=== PATIENT | female | born 1940 | race Caucasian/White ===

== ENCOUNTER → 2017-06-27 16:28 | Outpatient (CLI) | payer MEDICARE, OTHER, SELFPAY ==
[2017-06-27 17:38] LABS: Absolute Lymphocyte Count 2.49 X10^3/ul (0.83-4.51); Absolute Neutrophil Count 3.8 X10^3/uL (2.0-7.7); Basophil# 0.02 X10^3/uL; Basophil% 0.3 % (0-1); Eosinophil# 0.06 X10^3/uL; Eosinophils% 0.8 % (0-5); Hematocrit 40.1 % (37-47); Hemoglobin 12.8 g/dl (12.0-15.0); Lymphocyte # 2.49 X10^3/ul (4.0); Lymphocyte % 34.2 % (19-41); Mean Corp Hgb Conc 31.9 g/gl (32-36); Mean Corpuscular Hgb 27.7 pg (27.0-32.0); Mean Corpuscular Volume 86.8 fL (81-99); Monocyte# 0.87 X10^3/uL; Neutrophil # 3.83 X10^3/uL (2.7-7.7); Neutrophil % 52.6 % (47-70); Platelet Count 270 K/mm3 (150-450); RBC Distribution Width CV 14.6 % (11.6-14.6); RBC Distribution Width SD 46.1 fl (35.1-43.9); Red Blood Count 4.62 M/mm3 (4.2-5.4); White Blood Count 7.3 K/mm3 (4.4-11.0)
[2017-06-27 17:39] LABS: POSITIVE COUNT NO; POSITIVE DIFFERENTIAL NO; POSITIVE MORPHOLOGY NO
[2017-06-27 18:24] LABS: Anion Gap 9 (5-15); BUN 15 mg/dL (7-18); Calcium,Total 9.2 mg/dL (8.5-10.1); Chloride 100 mmol/L (98-107); Creatinine, Serum 0.68 mg/dL (0.55-1.02); EST Glomerular Filtration Rate 89 mL/min (>60); Est Glom Filt Rate - Afr Amer 108 mL/min (>60); Glucose 101 mg/dL (74-106); Sodium Level 136 mmol/L (136-145)
== END ==
PROVIDERS: Family Provider Family Medicine; PCP Family Medicine; Visit Provider Family Medicine
DX: R19.7 Diarrhea, unspecified (principal)
CPT/HCPCS: 36415; 80048; 85025

== ENCOUNTER → 2017-07-28 08:30 | Outpatient (CLI) | payer MEDICARE, OTHER, SELFPAY ==
[2017-07-28 09:08] LABS: Erythrocyte Sedimentation Rate 21 mm/hr (0-30)
[2017-07-28 09:11] LABS: Absolute Lymphocyte Count 1.94 X10^3/ul (0.83-4.51); Absolute Neutrophil Count 4.7 X10^3/uL (2.0-7.7); Basophil# 0.03 X10^3/uL; Basophil% 0.4 % (0-1); Eosinophil# 0.12 X10^3/uL; Eosinophils% 1.6 % (0-5); Hemoglobin 12.7 g/dl (12.0-15.0); Lymphocyte # 1.94 X10^3/ul (4.0); Lymphocyte % 25.8 % (19-41); Mean Corp Hgb Conc 32.6 g/gl (32-36); Mean Corpuscular Hgb 28.1 pg (27.0-32.0); Mean Corpuscular Volume 86.3 fL (81-99); Mean Platelet Vol. 8.7 fl (6.2-12.0); Monocyte# 0.74 X10^3/uL; Monocyte% 9.9 % (0-10); Neutrophil # 4.66 X10^3/uL (2.7-7.7); Platelet Count 275 K/mm3 (150-450); RBC Distribution Width CV 14.3 % (11.6-14.6); RBC Distribution Width SD 44.6 fl (35.1-43.9); Red Blood Count 4.52 M/mm3 (4.2-5.4); White Blood Count 7.5 K/mm3 (4.4-11.0)
[2017-07-28 09:13] LABS: POSITIVE COUNT NO; POSITIVE DIFFERENTIAL NO; POSITIVE MORPHOLOGY NO
[2017-07-28 09:22] LABS: Hemoglobin A1c 7.2 % (4.2-6.3)
[2017-07-28 09:31] LABS: ALB/GLOB Ratio 0.8 RATIO (0.9-2.4); AST(SGOT) 16 U/L (15-37); Alanine Aminotransfer ALT/SGPT 20 U/L (13-56); Albumin, Serum 3.2 g/dL (3.2-5.0); Alkaline Phosphatase 58 U/L (45-117); Anion Gap 8 (5-15); BUN 14 mg/dL (7-18); BUN/Creat Ratio 18.3 RATIO (10-20); CRP 9.15 mg/L (0.0-3.0); Calcium,Total 8.6 mg/dL (8.5-10.1); Chloride 103 mmol/L (98-107); Cholesterol 128 mg/dL (200); Creatinine, Serum 0.77 mg/dL (0.55-1.02); EST Glomerular Filtration Rate 78 mL/min (>60); Est Glom Filt Rate - Afr Amer 94 mL/min (>60); Globulin 4.1 g/dL (2.2-4.2); Glucose 164 mg/dL (74-106); High Density Lipoprotein 39 mg/dL; Potassium 4.2 mmol/L (3.5-5.1); Protein, Total 7.3 g/dL (6.4-8.2); Sodium Level 140 mmol/L (136-145); Triglycerides 91 mg/dL; Very Low Density Lipoprotein 18 mg/dL (5-40)
== END ==
PROVIDERS: Family Provider Family Medicine; PCP Family Medicine; Visit Provider Family Medicine
DX: E11.9 Type 2 diabetes mellitus without complications (principal); I10 Essential (primary) hypertension; E78.5 Hyperlipidemia, unspecified; M25.50 Pain in unspecified joint; R53.83 Other fatigue
CPT/HCPCS: 36415; 80053; 80061; 83036; 85025; 85652; 86140

== ENCOUNTER 2017-10-05 03:24 | Emergency (ER) | payer MEDICARE, OTHER, SELFPAY ==
[2017-10-05 03:25] VITALS: BP 182/147; PULSE 96; RESP 23; TEMP 37; O2SAT 85; BMI 22.4
--- NOTE | 2017-10-05 03:35 | ED.RN ---
patients wrong account entered and gave wrong information. please see other charting on this patient
== END 2017-10-05 04:00 | disposition home or self-care (01) ==
LOC: ED 07-31 11:21
PROVIDERS: Emergency Provider Emergency Medicine; Family Provider Family Medicine; PCP Family Medicine
DX: R06.9 Unspecified abnormalities of breathing (principal)

== ENCOUNTER → 2017-11-07 10:30 | Outpatient (CLI) | payer MEDICARE, OTHER, SELFPAY ==
--- NOTE | 2017-11-07 10:35 | RAD_ITS ---
STUDY: X-RAY - LUMBAR SPINE REASON FOR EXAM: Female, 77 years old. Low back pain. No known injury. TECHNIQUE: 5 view(s) of the lumbar spine were obtained. COMPARISON: 5 views of the lumbar spine July 31, 2016; CT abdomen pelvis August 21, 2016 FINDINGS: Normal lumbar lordosis. There is no substantial scoliosis. There is a normal alignment of the vertebrae. There is diffuse demineralization with multi-level endplate spondylosis. There is moderate degenerative narrowing of the L5-S1 intervertebral disc height. There is no demonstrated osseous destructive lesion or fracture. There is degenerative arthrosis of the right L3-4 and L4-5 facet articulations. As well as degenerative arthroses of the bilateral sacroiliac joint There is atherosclerotic calcification of the abdominal aorta as well as the tortuous splenic artery. RAD/L/S Spine Min 4 Views IMPRESSION: Stable degenerative changes of the spine, as detailed above. Electronically Signed: Bo Rawls MD at 19:58 EDT , Service support ,
[2017-11-07 12:45] LABS: Iron 46 ug/dL (50-170)
[2017-11-07 12:55] LABS: Vitamin B12 > 2000 pg/mL (211-911); Vitamin D,25 Hydroxy 30.2 ng/mL (29.95-100.01)
== END ==
PROVIDERS: Family Provider Family Medicine; PCP Family Medicine; Visit Provider Family Medicine
DX: M54.5 Low back pain (principal); E55.9 Vitamin D deficiency, unspecified; E61.1 Iron deficiency; E53.8 Deficiency of other specified B group vitamins
CPT/HCPCS: 36415; 72110; 82306; 82607; 83540

== ENCOUNTER 2017-11-08 17:53 | Inpatient (IN) | payer MEDICARE, OTHER, SELFPAY ==
[2017-11-08 17:55] VITALS: BP 129/59; PULSE 86; RESP 20; TEMP 37.8; O2SAT 90; BMI 42.6
--- NOTE | 2017-11-08 18:13 | EKG12_ITS ---
Test Reason : Blood Pressure : / mmHG Vent. Rate : 080 BPM Atrial Rate : 080 BPM P-R Int : 198 ms QRS Dur : 090 ms QT Int : 378 ms P-R-T Axes : 012 036 050 degrees QTc Int : 435 ms Sinus rhythm with marked sinus arrhythmia Otherwise normal ECG Confirmed by LIGIA SOSA, BON ([id number]), publication editor GRACIE BAILON ([id number]) on 11/09/2017 1:02:48 PM Referred By: DREW Confirmed By:BON STRONG MD
--- NOTE | 2017-11-08 18:20 | RAD_ITS ---
STUDY: X-RAY CHEST REASON FOR EXAM: Female, 77 years old. Weakness. Altered mental status beginning this morning. Recently treated for UTI nausea and vomiting. TECHNIQUE: Single AP portable view of the chest. COMPARISON: None. FINDINGS: Telemetry wires overlie the chest. The lungs are well expanded. There is no focal mass or infiltrate. Chronic interstitial coarsening is noted. There is no demonstrated pleural abnormality. Normal size heart. Normal mediastinum and lucio. Normal visualized pulmonary arteries. There is atherosclerotic calcification of the aortic arch with tortuosity. The thoracic spine is obscured by the mediastinum. There is degenerative osteoarthritis of the bilateral shoulders. There is no demonstrated abnormality of the visualized soft tissue structures of the upper abdomen. RAD/Chest 1 View (Portable) IMPRESSION: No acute cardiopulmonary disease. Electronically Signed: Joshua Roca DO at 18:54 EDT Tel [phone], Service support ,
[2017-11-08 18:31] LABS: Absolute Lymphocyte Count 0.84 X10^3/ul (0.83-4.51); Absolute Neutrophil Count 9.2 X10^3/uL (2.0-7.7); Basophil# 0.03 X10^3/uL; Basophil% 0.3 % (0-1); Eosinophil# 0.04 X10^3/uL; Eosinophils% 0.4 % (0-5); Hematocrit 38.1 % (37-47); Hemoglobin 12.4 g/dl (12.0-15.0); Lymphocyte # 0.84 X10^3/ul (4.0); Lymphocyte % 7.6 % (19-41); Mean Corp Hgb Conc 32.5 g/gl (32-36); Mean Corpuscular Hgb 28.1 pg (27.0-32.0); Mean Corpuscular Volume 86.2 fL (81-99); Mean Platelet Vol. 8.7 fl (6.2-12.0); Monocyte# 0.99 X10^3/uL; Monocyte% 8.9 % (0-10); Neutrophil # 9.19 X10^3/uL (2.7-7.7); Neutrophil % 82.5 % (47-70); POSITIVE COUNT NO; POSITIVE DIFFERENTIAL NO; POSITIVE MORPHOLOGY NO; Platelet Count 243 K/mm3 (150-450); RBC Distribution Width CV 14.3 % (11.6-14.6); RBC Distribution Width SD 44.9 fl (35.1-43.9); Red Blood Count 4.42 M/mm3 (4.2-5.4); White Blood Count 11.1 K/mm3 (4.4-11.0)
[2017-11-08 18:38] LABS: Lactic Acid 1.2 mmol/L (0.4-2.0)
[2017-11-08 18:39] LABS: Anion Gap 8 (5-15); BUN 16 mg/dL (7-18); BUN/Creat Ratio 21.5 RATIO (10-20); Calcium,Total 8.5 mg/dL (8.5-10.1); Chloride 101 mmol/L (98-107); Creatinine, Serum 0.74 mg/dL (0.55-1.02); EST Glomerular Filtration Rate 80 mL/min (>60); Est Glom Filt Rate - Afr Amer 97 mL/min (>60); Estimated Creatinine Clearance 37.85 ml/min; Glucose 150 mg/dL (74-106); Potassium 3.7 mmol/L (3.5-5.1); Sodium Level 134 mmol/L (136-145)
[2017-11-08] MEDS: Ondansetron 4 MG/2 ML Vial IV (18:41)
[2017-11-08] MEDS: 0.9% Normal Saline 1,000 ML 1000 ML IV (18:42)
[2017-11-08 19:15] LABS: Bacteria 0 SEEN /hpf (None Seen); Mucous, Urine 0 SEEN /hpf (<or=2+)
[2017-11-08 19:20] LABS: Color, Urine Yellow (Yellow); Glucose, Dipstick Normal (Normal); Ketone-Dipstick 15 mg/dl (Negative); Leukocyte Esterase-Dipstick 25 /ul (Negative); Nitrite-Dipstick Negative (Negative); Occult Blood-Urine 150 /ul (Negative); Protein-Dipstick 30 mg/dl (Negative); Specific Gravity, Urine 1.015 (1.002-1.030); Urine Bilirubin Dipstick Negative (Negative); Urine Urobilinogen Normal (Normal)
[2017-11-08 19:33] LABS: Red Blood Cells-Urine 5-10 SEEN /hpf (0-5); Squamous Epithelial Cells - UA 0-5 SEEN /hpf (5-10); White Blood Cells 0-5 SEEN /hpf (0-5)
[2017-11-08 19:34] LABS: Urine Clarity Sl Cldy (Clear)
[2017-11-08 20:05] VITALS: BP 107/46; PULSE 73; RESP 21; O2SAT 97
--- NOTE | 2017-11-08 21:28 | PCM.HP.STD ---
Problem List (1) Benign essential hypertension Status: Chronic (2) Type 2 diabetes mellitus Status: Chronic (3) Gastroesophageal reflux disease Status: Chronic (4) Obesity Status: Chronic (5) Osteoarthritis Status: Chronic (6) Obesity Status: Chronic (7) Benign essential hypertension Status: Chronic (8) Weakness Status: Acute History of Present Illness Date of Admission: 11/08/17 Chief Complaint: Weakness The patient is a 77 year old F with a significant history of GERD, diabetes mellitus, hypertension, appendectomy, cholecystectomy and hysterectomy who presents because of extreme weakness ?1 day. The patient reports that she has frequent UTIs; and last week she had symptoms of urinary problems of increased frequency of urination, burning and pain with urination; for which reason she went to see a urologist/network designer and was prescribed Macrobid. She began taking the Macrobid 3 days ago. Now, she has no burning or pain with urination but she continues to have increase in frequency of urination. Also 3 days ago she was she was prescribed a Medrol Dosepak for a lower back pain. She started taking the Medrol Dosepak. In regard to her lower back pain, she received a call that she have some some narrowing of her spine and she should consider physical therapy or pain management. At the same time that she was prescribed the Medrol Dosepak her insulin regimen was increased. She takes only long acting insulin and it was this regimen that was increased. Additionally she takes Amaryl and metformin. Associated with recurrent symptoms is a subjective fever, chills, nausea , vomiting ?4 times and confusion. She has a chronic diarrhea that have span years. At emergency department she was started on IV Rocephin and blood cultures ?2 was obtained. Past Medical History Past Medical History (Chronic Problems): Chronic Problems Benign essential hypertension (Chronic) Type 2 diabetes mellitus (Chronic) Gastroesophageal reflux disease (Chronic) Obesity (Chronic) Osteoarthritis (Chronic) Osteoarthritis (Chronic) Obesity (Chronic) Gastroesophageal reflux disease (Chronic) Type 2 diabetes mellitus (Chronic) Benign essential hypertension (Chronic) Allergies aspirin Allergy (Unverified 11/08/17 18:37) Rash codeine Allergy (Unverified 11/08/17 18:37) Rash NSAIDS (Non-Steroidal Anti-Inflamma Allergy (Unverified 11/08/17 18:37) Rash Penicillins Allergy (Unverified 07/19/18 18:37) Rash solifenacin [From Vesicare] Allergy (Unverified 11/08/17 18:37) Unknown Sulfa (Sulfonamide Antibiotics) Allergy (Unverified 11/08/17 18:37) Rash Home Medications: Ambulatory Orders Medication Instructions Recorded Ascorbic Acid [Vitamin C] 500 mg PO DAILY 11/08/17 Brimonidine 0.15% [Alphagan P 1 drop LEFT EYE BID 11/08/17 0.15%] Calcium Carbonate [Calcium] 600 mg PO QHS 11/08/17 Cholecalciferol (Vitamin D3) 5,000 unit PO DAILY 11/08/17 [Vitamin D3] Cyanocobalamin [Vitamin B12] 500 mcg PO DAILY@0800 11/08/17 Glimepiride [Amaryl] 4 mg PO BID 11/08/17 Insulin Glargine,Hum.rec.anlog 18 unit SC QHS 11/08/17 [Lantus] Losartan Potassium 75 mg PO DAILY 11/08/17 Magnesium Oxide [Magnesium] 400 mg PO QHS 11/08/17 Metformin HCl 500 mg PO TID 11/08/17 MethylPREDNISolone [Medrol] 4 mg PO 4X/DAY 11/08/17 Multivitamin [Daily Multiple 1 each PO DAILY 11/08/17 Vitamin] Nitrofurantoin Monohyd/M-Cryst 100 mg PO BID 11/08/17 [Macrobid 100 mg Capsule] [place]-3 Fatty Acids/Fish Oil [Fish 1 each PO DAILY 11/08/17 Oil 1,000 mg Capsule] Omeprazole 20 mg PO DAILY 11/08/17 Oxybutynin Chloride [Ditropan Xl] 5 mg PO DAILY 11/08/17 Pravastatin Sodium [Pravachol] 10 mg PO QHS 11/08/17 Trazodone HCl 150 mg PO QHS 11/08/17 Surgical History: appendectomy, cholecystectomy, hysterectomy Psychiatric History: No pertinent psych hx Smoking Status: Former smoker Tobacco Use: Non-smoker Alcohol: None Drugs: None - *Family History Maternal History Items: Heart Disease Paternal History Items: Diabetes, Heart Disease Review of Systems Constitutional: Reports: Chills, Fever - Subjective Eyes: Denies: Blurred vision, Pain HEENT: Reports: Difficulty Hearing Cardiovascular: Denies: Chest Pain, Palpitations Respiratory: Denies: Cough, Shortness of breath at rest, Sputum production Gastrointestinal: Denies: Abdominal Pain, Nausea, Vomiting Genitourinary: Reports: Dysuria, Frequency Musculoskeletal: Reports: Back Pain - Lower central back pain, - Skin: Denies: Rash, Wounds Neurological: Reports: Confusion. Denies: Focal weakness Psychiatric: Denies: Anxiety, Depression, Homicidal Ideations, Suicidal Ideations Hematologic/ Lymphatic: Denies: Easy Bruising, Easy Bleeding VTE Information - Inpt Only VTE Present on Admission: No VTE Mechan Device Prophylaxis: None VTE Pharm Prophylaxis ordered?: Yes Patient Problems: Active and Suspected Problems Weakness (Acute) - Physical Exam General: Alert, Oriented x3, Cooperative HEENT: Atraumatic, PERRLA, EOMI, Normocephalic Neck: Supple, No JVD, Negative Carotid Bruits Lungs: Clear to auscultation, Normal air movement Cardiovascular: Regular rate, No murmurs Abdomen: Tender - Left lower quadrants Old midline incision Extremities: - - Back nontender Skin: No rashes, No breakdown Musculoskeletal: No Tenderness to Palpation of Joints or Extremities Neurological: Cranial nerves II-XII grossly intact Psych/Mental Status: Normal Affect, Appropriate Vital Signs Temp Pulse Resp BP Pulse Ox 100.1 F H 73 21 H 107/46 L 97 11/08/17 17:55 11/08/17 20:05 11/08/17 20:05 11/08/17 20:05 11/08/17 20:05 Oxygen Delivery Method Room Air Weight: 105.7 kg Body Mass Index (BMI) 42.6 Laboratory Tests Past 24 Hrs 11/08/17 11/08/17 11/08/17 18:03 18:05 18:05 WBC 11.1 H RBC 4.42 Hgb 12.4 Hct 38.1 MCV 86.2 MCH 28.1 MCHC 32.5 RDW 14.3 RDW Differential 44.9 H Plt Count 243 MPV 8.7 Immature Gran % (Auto) 0.300 Neut % (Auto) 82.5 H Lymph % (Auto) 7.6 L [place] % (Auto) 8.9 Eos % (Auto) 0.4 Baso % (Auto) 0.3 Absolute Neuts (auto) 9.2 H Absolute Lymphs (auto) 0.84 Total Counted Not Reportable Sodium 134 L Potassium 3.7 Chloride 101 Carbon Dioxide 25.0 Anion Gap 8 BUN 16 Creatinine 0.74 Estim Creat Clear Calc 37.85 Est GFR (MDRD) Af Amer 97 Est GFR (MDRD) Non-Af 80 BUN/Creatinine Ratio 21.5 H Glucose 150 H Lactic Acid 1.2 Calcium 8.5 Troponin I < 0.015 Urine Color Urine Clarity Urine pH Ur Specific [place] Urine Protein Urine Glucose (UA) Urine Ketones Urine Occult Blood Urine Nitrite Urine Bilirubin Urine Urobilinogen Ur Leukocyte Esterase Urine RBC Urine WBC Ur Squamous Epith Cells Urine Bacteria Urine Mucus 11/08/17 19:01 WBC RBC Hgb Hct MCV MCH MCHC RDW RDW Differential Plt Count MPV Immature Gran % (Auto) Neut % (Auto) Lymph % (Auto) [place] % (Auto) Eos % (Auto) Baso % (Auto) Absolute Neuts (auto) Absolute Lymphs (auto) Total Counted Sodium Potassium Chloride Carbon Dioxide Anion Gap BUN Creatinine Estim Creat Clear Calc Est GFR (MDRD) Af Amer Est GFR (MDRD) Non-Af BUN/Creatinine Ratio Glucose Lactic Acid Calcium Troponin I Urine Color Yellow Urine Clarity Sl Cldy Urine pH 5.0 Ur Specific [place] 1.015 Urine Protein 30 H Urine Glucose (UA) Normal Urine Ketones 15 H Urine Occult Blood 150 H Urine Nitrite Negative Urine Bilirubin Negative Urine Urobilinogen Normal Ur Leukocyte Esterase 25 H Urine RBC 5-10 SEEN Urine WBC 0-5 SEEN Ur Squamous Epith Cells 0-5 SEEN Urine Bacteria 0 SEEN Urine Mucus 0 SEEN Assessment/Plan All Active Problems Weakness (Acute) The patient is a 77 year old F with a significant history of GERD, diabetes mellitus, hypertension, appendectomy, cholecystectomy and hysterectomy who presents because of extreme weakness ?1 day, subjective fever chills, nausea, vomiting and some reported confusion after recently being started on Macrobid and Medrol Dosepak.. At the time of my evaluation patient was not confused. At emergency department he had a temperature of 100.1. Weakness The etiology of a weakness is not known at this time. However, it could be due to her steroids. We will discontinue steroid at this time. Oxycodone and ibuprofen ordered. Patient states that she is allergic to aspirin but not to ibuprofen. PT and OT therapy. Acute cystitis cystitis His urinalysis here was not impressive. However he stated that he had a severely abnormal urinalysis outpatient for his region Macrobid was started and Received Rocephin IV at the ED Rocephin continued Urine culture ordered Blood culture pending. Zofran for nausea. Hypertension Continue losartan Diabetes mellitus Metformin and Amaryl on hold. Will adjust home last Lantus downwards to 10 units daily because of vomiting Correction scale insulin ordered. DVT prophylaxis with subcutaneous heparin. Code Visit OBSV E&M: 59588 Initial observation care L2
[2017-11-08] MEDS: Acetaminophen 500 MG Tablet 1000 MG PO (21:36)
[2017-11-08 21:37] VITALS: BP 103/49; PULSE 80; RESP 18; O2SAT 98
[2017-11-08 22:00] VITALS: O2SAT 98
--- NOTE | 2017-11-08 22:00 | ED.DCSUM_ITS ---
- ER Visit Summary Date of Service: 11/08/17 Chief Complaint: [Weakness] History of Present Illness: The patient is a 77 F [presents the emergency department complaint of generalized weakness for over a week. Patient states that she just feels miserable. Patient currently being treated for urinary tract infection that was diagnosed on the and patient was started on Macrobid. Patient describes fever. Patient describes intermittent nausea and vomiting. Patient's had intermittent diarrhea without any blood in the stool. Patient denies any abdominal pain. Patient has some mild back patient but she has a history of chronic back pain and recently was started on steroids. Today patient too weak to even get to the bathroom and required assistance from her daughter and the daughter called EMS to bring patient to the ER. Daughter states patient's been somewhat more confused than usual today.] Physical Examination: [HEENT-PERRLA, EOMI. Cranial nerves II through XII grossly intact. TMs clear. Mucous membranes moist. No adenopathy. Cardiovascular-regular rate and rhythm without murmur or ectopy Lungs-clear to auscultation, chest wall stable without crepitus or subcu emphysema Abdomen-normoactive bowel sounds, soft, nontender, no rebound or rigidity, no peritoneal signs. Extremities-intact ?4, normal range of motion, normal pulses, atraumatic] Test Results: [EKG obtained on arrival shows sinus rhythm with a ventricular rate of 80 bpm with no acute ST segment changes. CBC with differential showed an elevated white blood cell count of 11.1, [place] 12, hematocrit 38, platelets 243. Chemistries unremarkable. Urinalysis showed 25 leukocyte esterase, 5-10 WBCs, 0-5 RBCs. Troponin was less than 0.015. Lactate was normal at 1.2. Chest x-ray showed nothing acute. Blood cultures ordered and pending.] Emergency Department Course and Treatment: [Patient was started on Rocephin 1 g IV and she was given IV fluids.] Treatment Plan: [Admit] Disposition: [Admit] Impression: [Generalized weakness UTI] This note was generated with [employer] dictation software. It may contain incorrect words, spelling, and punctuation that were not noted in review of the chart prior to signing ED Disposition - Plan for ED Patient: Chief Complaint: Weakness Referrals: Marilee Jiang DO [Primary Care Provider] -
[2017-11-08] MEDS: Ceftriaxone 1 GM/50 ML BAG IV (22:15)
[2017-11-08 22:57] VITALS: BMI 38.5
[2017-11-09 00:10] VITALS: BP 104/50; PULSE 66; RESP 18; TEMP 37.1; O2SAT 94
[2017-11-09 00:35] LABS: Bedside Glucose 260 mg/dL (70-110)
[2017-11-09] MEDS: Heparin Injection (Vial) 5,000 UNIT/ML VIAL 5000 UNIT SC ×4 (01:28→21:51)
[2017-11-09] MEDS: Insulin Lispro 100 UNIT/ML INSULN.PEN SQ ×4 (01:30→21:50)
[2017-11-09] MEDS: BRIMONIDINE 0.15% 5 ML Bottle 1 DRP LEFT EYE ×3 (01:31→21:48)
[2017-11-09 06:00] VITALS: BP 115/53; PULSE 69; RESP 18; TEMP 37.1; O2SAT 97
[2017-11-09] MEDS: Ibuprofen 600 MG Tablet PO ×2 (06:12→22:00)
[2017-11-09 06:18] LABS: Absolute Neutrophil Count 4.8 X10^3/uL (2.0-7.7); Basophil# 0.02 X10^3/uL; Basophil% 0.3 % (0-1); Eosinophil# 0.11 X10^3/uL; Eosinophils% 1.6 % (0-5); Hematocrit 37.2 % (37-47); Hemoglobin 11.7 g/dl (12.0-15.0); Mean Corp Hgb Conc 31.5 g/gl (32-36); Mean Corpuscular Hgb 27.6 pg (27.0-32.0); Mean Corpuscular Volume 87.7 fL (81-99); Mean Platelet Vol. 8.8 fl (6.2-12.0); Monocyte# 0.87 X10^3/uL; Monocyte% 12.6 % (0-10); Neutrophil # 4.76 X10^3/uL (2.7-7.7); Neutrophil % 69.2 % (47-70); Platelet Count 215 K/mm3 (150-450); RBC Distribution Width CV 14.7 % (11.6-14.6); Red Blood Count 4.24 M/mm3 (4.2-5.4); White Blood Count 6.9 K/mm3 (4.4-11.0)
[2017-11-09 06:20] LABS: POSITIVE COUNT NO; POSITIVE DIFFERENTIAL NO; POSITIVE MORPHOLOGY NO
[2017-11-09 06:37] LABS: Anion Gap 7 (5-15); BUN 15 mg/dL (7-18); BUN/Creat Ratio 19.5 RATIO (10-20); Calcium,Total 8.4 mg/dL (8.5-10.1); Chloride 105 mmol/L (98-107); Creatinine, Serum 0.77 mg/dL (0.55-1.02); EST Glomerular Filtration Rate 78 mL/min (>60); Est Glom Filt Rate - Afr Amer 94 mL/min (>60); Estimated Creatinine Clearance 37.85 ml/min; Glucose 156 mg/dL (74-106); Potassium 3.7 mmol/L (3.5-5.1); Sodium Level 141 mmol/L (136-145)
[2017-11-09 07:00] VITALS: O2SAT 95
[2017-11-09 07:50] LABS: Bedside Glucose 148 mg/dL (70-110)
[2017-11-09] MEDS: Glucerna Shake 120 ML LIQUID PO ×3 (09:28→17:13)
[2017-11-09 09:30] VITALS: BP 106/56; PULSE 59; RESP 16; TEMP 36.4; O2SAT 96
--- NOTE | 2017-11-09 11:02 | PCM.PN.HOSP ---
Patient Problems: Active and Suspected Problems Weakness (Acute) Subjective: The patient is a 77 y/o F w/ PMHx: Obesity, HTN, HLD, Diabetes mellitus type II, OA, GERD, Chronic abdominal pain, Chronic Diarrhea, Chronic Back Pain w/ Spinal Stenosis who presents to the [facility] ED on 11/08/17 with history of progressively worsening weakness for the last 24 hours with recent urinary tract infection with increased frequency, dysuria and pain with evaluation per her staff attorney with prescription start of Macrobid at that time with intake ?3 days with improvement of symptoms but ongoing increased frequency. Debility, progressively worsening weakness secondary to possible Recent Acute Urinary Tract Infection: Admitted to [place], UA in the ED not marked appearing but UCx pending and will continue to monitor I/Os, IVFs, continue IV Rocephin w/ transition as able pending sensitivities and speciation or d/c if unremarkable. Encourage HOB, IS as needed minimal O2 with unremarkable CXR. Encouraged follow-up with primary care physician versus GI for possible underlying IBS, stool cultures requested upon admission but likely chronic as patient denies any worsened status, once resulted consider as needed Lomotil. Chronic back pain, spinal stenosis history w/ PT, OT consulted, following, maintain on fall precautions, as needed pain regimen. Noted recent medrol dose pack. Patient with no acute events overnight per self and per nursing port. She states she feels mildly less weak than she did upon initial presentation but this is ongoing. This morning she takes a 1 person assist to get up to the side of the bed and has to use a walker which she normally does not with therapy assistance to ambulate in the room to the restroom. She notes still feeling mildly lightheaded but otherwise improving. She states that the urine culture that was performed prior was performed in [place] following which she had been given the Macrobid. She currently denies any urinary symptoms and is on IV Rocephin which was discussed with pending urine culture. Patient admits to chronic diarrhea although this has currently lessened upon admission and she notes normally taking Lomotil outpatient as needed. Patient denies fevers, chills, nausea, emesis, abdominal pain, chest pain or dyspnea. Objective: Physical Examination: General: awake, alert, oriented x 3 and cooperative, seated upright in bed in no apparent distress. Skin: normal color, turgor, no icterus, cyanosis. HEENT: AT/NC, EOMI, PERRLA, MMM. Lungs: Diminished BS, > bases, mild effort, no rales, ronchi or wheezing. Heart: Regular rate and rhythm; no gallop, rub audible. Abdomen: soft, obese, mild discomfort generalized to palpation which is chronic, difficult to assess distention given habitus, normal BS. Extremities: no cyanosis, clubbing, BL ankle edema. Neurological: patient awake, alert, oriented x 3; cognitive function intact; pupils equally reactive to light and accomodation; cranial nerves II-XII grossly normal, moving all 4 extremities, no focal deficits, strength moderately to severely globally decreased, improved w/ increased activity attempts. Psychiatric: affect appears fatigued, no acute evidence of depressive or anxiety feelings. Vitals/I&O's: Vital Signs Temp Pulse Resp BP Pulse Ox 97.6 F L 59 L 16 106/56 L 96 11/09/17 09:30 11/09/17 09:30 11/09/17 09:30 11/09/17 09:30 11/09/17 09:30 Oxygen Flow Rate (L/min) 2 Oxygen Delivery Method Room Air Weight: 210 lb 8.663 oz Body Mass Index (BMI) 38.5 Intake and Output for Last 24 Hours 11/07/17 11/08/17 11/09/17 23:59 23:59 23:59 Intake Total 50 / 50 Balance 50 / 50 Laboratory Results 11/08/17 23:29: POC Glucose 260 H 11/09/17 05:40: WBC 6.9, RBC 4.24, Hgb 11.7 L, Hct 37.2, MCV 87.7, MCH 27.6, MCHC 31.5 L, RDW 14.7 H, RDW Differential 47.0 H, Plt Count 215, MPV 8.8, Immature Gran % (Auto) 0.300, Neut % (Auto) 69.2, Lymph % (Auto) 16.0 L, [place] % (Auto) 12.6 H, Eos % (Auto) 1.6, Baso % (Auto) 0.3, Absolute Neuts (auto) 4.8, Absolute Lymphs (auto) 1.10, Total Counted Not Reportable 11/09/17 05:40: Sodium 141, Potassium 3.7, Chloride 105, Carbon Dioxide 29.0, Anion Gap 7, BUN 15, Creatinine 0.77, Estim Creat Clear Calc 37.85, Est GFR (MDRD) Af Amer 94, Est GFR (MDRD) Non-Af 78, BUN/Creatinine Ratio 19.5, Glucose 156 H, Calcium 8.4 L 11/09/17 07:08: POC Glucose 148 H Current Medications Ascorbic Acid (Vitamin C) 500 mg PO DAILY [facility] Brimonidine Tartrate (Alphagan P 0.15%) 1 drop LEFT EYE BID [facility] Last Admin: 11/09/17 01:31 Dose: 1 drop Cholecalciferol (Vitamin D) 5,000 unit PO DAILY [facility] Cyanocobalamin (Vitamin B12) 500 mcg PO DAILY@0800 [facility] Dextrose (D50w Syringe) 0 gm IV X1 PRN; Protocol PRN Reason: Hypoglycemia Glucagon () 1 mg IM .X1 PRN PRN Reason: Hypoglycemia Heparin Sodium (Porcine) (Heparin Na) 5,000 unit SC Q8 [facility] Last Admin: 11/09/17 06:18 Dose: 5,000 units Ceftriaxone Sodium (Rocephin) 1 gm in 50 mls @ 100 mls/hr IV Q24 [facility] Ibuprofen (Motrin) 600 mg PO Q6H PRN PRN PRN Reason: PAIN Last Admin: 11/09/17 06:12 Dose: 600 mg Insulin Glargine (Lantus (Bkc)) 10 units SC QHS [facility] Last Admin: 11/09/17 01:29 Dose: 10 units Insulin Human Lispro (Humalog Kwikpen (Bk)) 0 unit SQ ACHS [facility] PRN Reason: Protocol Last Admin: 11/09/17 07:09 Dose: Not Given Losartan Potassium (Cozaar) 75 mg PO DAILY [facility] Magnesium Hydroxide (Milk Of Magnesia) 30 ml PO DAILY PRN PRN PRN Reason: Constipation Magnesium Oxide (Mag-Ox 400) 400 mg PO QHS [facility] Multivitamins (Multivitamin) 1 tablet PO DAILY@0800 [facility] Nutritional Formula (Lactose Free) (Glucerna Shake) 120 ml PO TIDCM [facility] Last Admin: 11/09/17 09:28 Dose: 120 ml [id number] Ethyl Esters (Lovaza) 1 gm PO DAILY [facility] Ondansetron HCl (Zofran) 4 mg IV Q6H PRN PRN PRN Reason: NAUSEA/VOMITING Oxybutynin Chloride (Ditropan) 5 mg PO DAILY [facility] Oxycodone HCl (Oxyir) 5 mg PO Q4H PRN PRN PRN Reason: Moderate Pain (pain scale 4-5) Pantoprazole Sodium (Protonix) 20 mg PO DAILY [facility] Pravastatin Sodium (Pravachol) 10 mg PO QHS [facility] Sodium Chloride () 5 - 30 ml IV UD PRN PRN Reason: SALINE FLUSH Trazodone HCl (Desyrel) 150 mg PO QHS [facility] Zolpidem Tartrate (Ambien (Generic)) 5 mg PO QHS PRN PRN PRN Reason: INSOMNIA Medical Necessity - Tobacco Use Smoking Status: Former smoker Tobacco Use: Non-smoker Assessment/Plan All Active Problems Weakness (Acute) The patient is a 77 y/o F w/ PMHx: Obesity, HTN, HLD, Diabetes mellitus type II, OA, GERD, Chronic abdominal pain, Chronic Diarrhea, Chronic Back Pain w/ Spinal Stenosis who presents to the [facility] ED on 11/08/17 with history of progressively worsening weakness for the last 24 hours with recent urinary tract infection with increased frequency, dysuria and pain with evaluation per her staff attorney with prescription start of Macrobid at that time with intake ?3 days with improvement of symptoms but ongoing increased frequency. (1) Debility, progressively worsening weakness secondary to possible Recent Acute Urinary Tract Infection: Admitted to [facility] in the ED not marked appearing but UCx pending and will continue to monitor I/Os, IVFs, continue IV Rocephin w/ transition as able pending sensitivities and speciation or d/c if unremarkable. Bld cx x 2 obtained in the ED. Encourage HOB, IS as needed minimal O2 with unremarkable CXR. (2) Hypertension: Continue home regimen including losartan, PRN hydralazine. (3) Hyperlipidemia: Continue home statin regimen. (4) Diabetes mellitus type II: Hold oral home regimen, continue home insulin regimen, ADA diet, accu checks w/ ISS. (5) Abdominal pain, diarrhea: Encouraged follow-up with primary care physician versus GI for possible underlying IBS, stool cultures requested upon admission but likely chronic as patient denies any worsened status, once resulted consider as needed Lomotil. (6) Chronic back pain, spinal stenosis history: PT, OT consulted, following, maintain on fall precautions, as needed pain regimen. Noted recent medrol dose pack. (7) Obesity: Weight loss and lifestyle changes encouraged. (8) DVT prophylaxis: SCDs, heparin. Code Visit OBSV E&M: 57345 Observ/hosp same date L3
--- NOTE | 2017-11-09 11:17 | PN_ITS ---
Patient Problems: Active and Suspected Problems Weakness (Acute) Subjective: The patient is a 77 y/o F w/ PMHx: Obesity, HTN, HLD, Diabetes mellitus type II , OA, GERD, Chronic abdominal pain, Chronic Diarrhea, Chronic Back Pain w/ Spinal Stenosis who presents to the [facility] ED on 11/08/17 with history of progressively worsening weakness for the last 24 hours with recent urinary tract infection with increased frequency, dysuria and pain with evaluation per her senior abap developer with prescription start of Macrobid at that time with intake ? 3 days with improvement of symptoms but ongoing increased frequency. Debility, progressively worsening weakness secondary to possible Recent Acute Urinary Tract Infection: Admitted to [facility], UA in the ED not marked appearing but UCx pending and will continue to monitor I/Os, IVFs, continue IV Rocephin w/ transition as able pending sensitivities and speciation or d/c if unremarkable. Encourage HOB, IS as needed minimal O2 with unremarkable CXR. Encouraged follow- up with primary care physician versus GI for possible underlying IBS, stool cultures requested upon admission but likely chronic as patient denies any worsened status, once resulted consider as needed Lomotil. Chronic back pain, spinal stenosis history w/ PT, OT consulted, following, maintain on fall precautions, as needed pain regimen. Noted recent medrol dose pack. Patient with no acute events overnight per self and per nursing port. She states she feels mildly less weak than she did upon initial presentation but this is ongoing. This morning she takes a 1 person assist to get up to the side of the bed and has to use a walker which she normally does not with therapy assistance to ambulate in the room to the restroom. She notes still feeling mildly lightheaded but otherwise improving. She states that the urine culture that was performed prior was performed in [place] following which she had been given the Macrobid. She currently denies any urinary symptoms and is on IV Rocephin which was discussed with pending urine culture. Patient admits to chronic diarrhea although this has currently lessened upon admission and she notes normally taking Lomotil outpatient as needed. Patient denies fevers, chills, nausea, emesis, abdominal pain, chest pain or dyspnea. Objective: Physical Examination: General: awake, alert, oriented x 3 and cooperative, seated upright in bed in no apparent distress. Skin: normal color, turgor, no icterus, cyanosis. HEENT: AT/NC, EOMI, PERRLA, MMM. Lungs: Diminished BS, > bases, mild effort, no rales, ronchi or wheezing. Heart: Regular rate and rhythm; no gallop, rub audible. Abdomen: soft, obese, mild discomfort generalized to palpation which is chronic , difficult to assess distention given habitus, normal BS. Extremities: no cyanosis, clubbing, BL ankle edema. Neurological: patient awake, alert, oriented x 3; cognitive function intact; pupils equally reactive to light and accomodation; cranial nerves II-XII grossly normal, moving all 4 extremities, no focal deficits, strength moderately to severely globally decreased, improved w/ increased activity attempts. Psychiatric: affect appears fatigued, no acute evidence of depressive or anxiety feelings. Vitals/I&O's: Vital Signs Temp Pulse Resp BP Pulse Ox 97.6 F L 59 L 16 106/56 L 96 11/09/17 09:30 11/09/17 09:30 11/09/17 09:30 11/09/17 09:30 11/09/17 09:30 Oxygen Flow Rate (L/min) 2 Oxygen Delivery Method Room Air Weight: 210 lb 8.663 oz Body Mass Index (BMI) 38.5 Intake and Output for Last 24 Hours 11/07/17 11/08/17 11/09/17 23:59 23:59 23:59 Intake Total 50 / 50 Balance 50 / 50 Laboratory Results 11/08/17 23:29: POC Glucose 260 H 11/09/17 05:40: WBC 6.9, RBC 4.24, Hgb 11.7 L, Hct 37.2, MCV 87.7, MCH 27.6, MCHC 31.5 L, RDW 14.7 H, RDW Differential 47.0 H, Plt Count 215, MPV 8.8, Immature Gran % (Auto) 0.300, Neut % (Auto) 69.2, Lymph % (Auto) 16.0 L, [place] % (Auto) 12.6 H, Eos % (Auto) 1.6, Baso % (Auto) 0.3, Absolute Neuts (auto) 4.8, Absolute Lymphs (auto) 1.10, Total Counted Not Reportable 11/09/17 05:40: Sodium 141, Potassium 3.7, Chloride 105, Carbon Dioxide 29.0, Anion Gap 7, BUN 15, Creatinine 0.77, Estim Creat Clear Calc 37.85, Est GFR ( MDRD) Af Amer 94, Est GFR (MDRD) Non-Af 78, BUN/Creatinine Ratio 19.5, Glucose 156 H, Calcium 8.4 L 11/09/17 07:08: POC Glucose 148 H Current Medications Ascorbic Acid (Vitamin C) 500 mg PO DAILY [facility] Brimonidine Tartrate (Alphagan P 0.15%) 1 drop LEFT EYE BID [facility] Last Admin: 11/09/17 01:31 Dose: 1 drop Cholecalciferol (Vitamin D) 5,000 unit PO DAILY [facility] Cyanocobalamin (Vitamin B12) 500 mcg PO DAILY@0800 [facility] Dextrose (D50w Syringe) 0 gm IV X1 PRN; Protocol PRN Reason: Hypoglycemia Glucagon () 1 mg IM .X1 PRN PRN Reason: Hypoglycemia Heparin Sodium (Porcine) (Heparin Na) 5,000 unit SC Q8 [facility] Last Admin: 11/09/17 06:18 Dose: 5,000 units Ceftriaxone Sodium (Rocephin) 1 gm in 50 mls @ 100 mls/hr IV Q24 [facility] Ibuprofen (Motrin) 600 mg PO Q6H PRN PRN PRN Reason: PAIN Last Admin: 11/09/17 06:12 Dose: 600 mg Insulin Glargine (Lantus (Bkc)) 10 units SC QHS [facility] Last Admin: 11/09/17 01:29 Dose: 10 units Insulin Human Lispro (Humalog Kwikpen (Bk)) 0 unit SQ ACHS [facility] PRN Reason: Protocol Last Admin: 11/09/17 07:09 Dose: Not Given Losartan Potassium (Cozaar) 75 mg PO DAILY [facility] Magnesium Hydroxide (Milk Of Magnesia) 30 ml PO DAILY PRN PRN PRN Reason: Constipation Magnesium Oxide (Mag-Ox 400) 400 mg PO QHS [facility] Multivitamins (Multivitamin) 1 tablet PO DAILY@0800 [facility] Nutritional Formula (Lactose Free) (Glucerna Shake) 120 ml PO TIDCM [facility] Last Admin: 11/09/17 09:28 Dose: 120 ml [id number] Ethyl Esters (Lovaza) 1 gm PO DAILY [facility] Ondansetron HCl (Zofran) 4 mg IV Q6H PRN PRN PRN Reason: NAUSEA/VOMITING Oxybutynin Chloride (Ditropan) 5 mg PO DAILY [facility] Oxycodone HCl (Oxyir) 5 mg PO Q4H PRN PRN PRN Reason: Moderate Pain (pain scale 4-5) Pantoprazole Sodium (Protonix) 20 mg PO DAILY [facility] Pravastatin Sodium (Pravachol) 10 mg PO QHS [facility] Sodium Chloride () 5 - 30 ml IV UD PRN PRN Reason: SALINE FLUSH Trazodone HCl (Desyrel) 150 mg PO QHS [facility] Zolpidem Tartrate (Ambien (Generic)) 5 mg PO QHS PRN PRN PRN Reason: INSOMNIA Medical Necessity - Tobacco Use Smoking Status: Former smoker Tobacco Use: Non-smoker Assessment/Plan All Active Problems Weakness (Acute) The patient is a 77 y/o F w/ PMHx: Obesity, HTN, HLD, Diabetes mellitus type II , OA, GERD, Chronic abdominal pain, Chronic Diarrhea, Chronic Back Pain w/ Spinal Stenosis who presents to the [facility] ED on 11/08/17 with history of progressively worsening weakness for the last 24 hours with recent urinary tract infection with increased frequency, dysuria and pain with evaluation per her senior abap developer with prescription start of Macrobid at that time with intake ? 3 days with improvement of symptoms but ongoing increased frequency. (1) Debility, progressively worsening weakness secondary to possible Recent Acute Urinary Tract Infection: Admitted to [facility] in the ED not marked appearing but UCx pending and will continue to monitor I/Os, IVFs, continue IV Rocephin w/ transition as able pending sensitivities and speciation or d/c if unremarkable. Bld cx x 2 obtained in the ED. Encourage HOB, IS as needed minimal O2 with unremarkable CXR. (2) Hypertension: Continue home regimen including losartan, PRN hydralazine. (3) Hyperlipidemia: Continue home statin regimen. (4) Diabetes mellitus type II: Hold oral home regimen, continue home insulin regimen, ADA diet, accu checks w/ ISS. (5) Abdominal pain, diarrhea: Encouraged follow-up with primary care physician versus GI for possible underlying IBS, stool cultures requested upon admission but likely chronic as patient denies any worsened status, once resulted consider as needed Lomotil. (6) Chronic back pain, spinal stenosis history: PT, OT consulted, following, maintain on fall precautions, as needed pain regimen. Noted recent medrol dose pack. (7) Obesity: Weight loss and lifestyle changes encouraged. (8) DVT prophylaxis: SCDs, heparin. Code Visit OBSV E&M: 33614 Observ/hosp same date L3
[2017-11-09 12:00] LABS: Bedside Glucose 229 mg/dL (70-110)
[2017-11-09] MEDS: Ascorbic Acid 500 MG Tablet PO (12:29)
[2017-11-09] MEDS: Pantoprazole Sodium 20 MG Tablet PO (12:30)
[2017-11-09] MEDS: Cyanocobalamin 500 MCG Tablet PO (12:30)
[2017-11-09] MEDS: Oxybutynin 5 MG Tablet PO (12:30)
[2017-11-09] MEDS: Multivitamins,Therapeutic Tablet 1 TABLET PO (12:30)
[2017-11-09] MEDS: Losartan Potassium 50 MG Tablet 75 MG PO (12:30)
[2017-11-09] MEDS: Omega-3 Acid Ethyl Esters 1 GM Capsule PO (12:30)
[2017-11-09] MEDS: Ceftriaxone 1 GM/50 ML BAG IV (12:31)
--- NOTE | 2017-11-09 13:36 | CHAPLAIN ---
Type of Pastoral Visit _x__ Initial Visit ___ Follow-up Visit ___ On-call Visit ___ General Patient Visit ___ Spiritual Assessment ___ Family Conference ___ Bereavement ___ Rapid Response ___ Code Blue ___ Other (describe below) Pastoral Care Referral From _x__ Patient ___ Family ___ Nurse ___ Physician ___ Certified Orthotist ___ User Acceptance Tester ___ Other (describe below) Sacrament/Intervention _x__ Active listening ___ Anointing ___ Christian ___ Bereavement ___ Communion ___ Calista exploration ___ ___ Life review _x__ Prayer ___ Reconciliation ___ Sacrament of Sick _x__ Supportive presence ___ Wedding ___ Other (describe below) Pastoral Comments
[2017-11-09 14:00] VITALS: BP 120/55; PULSE 58; RESP 20; TEMP 36.6; O2SAT 94
[2017-11-09] MEDS: Ondansetron 4 MG/2 ML Vial IV (14:30)
[2017-11-09] MEDS: 0.9% NaCl Peripheral Flush Adult/Peds IV (14:30)
[2017-11-09 17:20] LABS: Bedside Glucose 195 mg/dL (70-110)
[2017-11-09 21:37] VITALS: BP 123/57; PULSE 59; RESP 18; TEMP 37.1; O2SAT 98
[2017-11-09] MEDS: traZODone 100 MG Tablet 150 MG PO (21:49)
[2017-11-09] MEDS: Pravastatin 20 MG Tablet 10 MG PO (21:49)
[2017-11-09] MEDS: Magnesium Oxide 400 MG Tablet PO (21:49)
[2017-11-10 03:10] VITALS: BP 116/58; PULSE 50; RESP 18; TEMP 36.7; O2SAT 94
[2017-11-10 03:31] LABS: Bedside Glucose 232 mg/dL (70-110)
[2017-11-10] MEDS: Heparin Injection (Vial) 5,000 UNIT/ML VIAL 5000 UNIT SC ×3 (06:41→21:35)
[2017-11-10 06:47] VITALS: O2SAT 95
[2017-11-10 07:01] LABS: Bedside Glucose 139 mg/dL (70-110)
[2017-11-10 08:23] VITALS: BP 148/72; PULSE 62; RESP 18; TEMP 36.5; O2SAT 100
[2017-11-10] MEDS: Glucerna Shake 120 ML LIQUID PO ×3 (08:30→17:15)
[2017-11-10] MEDS: Multivitamins,Therapeutic Tablet 1 TABLET PO (08:31)
[2017-11-10] MEDS: Losartan Potassium 50 MG Tablet 75 MG PO (08:31)
[2017-11-10] MEDS: Ascorbic Acid 500 MG Tablet PO (08:31)
[2017-11-10] MEDS: Cyanocobalamin 500 MCG Tablet PO (08:31)
[2017-11-10] MEDS: Oxybutynin 5 MG Tablet PO (08:32)
[2017-11-10] MEDS: Pantoprazole Sodium 20 MG Tablet PO (08:32)
--- NOTE | 2017-11-10 09:30 | PCM.PN.HOSP ---
Patient Problems: Active and Suspected Problems Weakness (Acute) Subjective: Patient was seen and examined. States since admission, her diarrhea has stopped. No more feels dizzy. Denies any fever or chills or chest pain or shortness of breath. Vitals/I&O's: Vital Signs Temp Pulse Resp BP Pulse Ox 97.7 F L 62 18 148/72 H 100 11/10/17 08:23 11/10/17 08:23 11/10/17 08:23 11/10/17 08:23 11/10/17 08:23 Oxygen Delivery Method Room Air Intake and Output for Last 24 Hours 11/08/17 11/09/17 11/10/17 23:59 23:59 23:59 Intake Total 300 / 700 360 / 360 Balance 300 / 700 360 / 360 General: Alert, Oriented x3, Cooperative HEENT: Atraumatic, PERRLA, EOMI, Normocephalic Oral: Moist Mucosa Neck: Supple Lungs: Clear to auscultation, Normal air movement Cardiovascular: Regular rate, Regular Rhythm, Normal S1, Normal S2, No murmurs Abdomen: Bowel Sounds Present, Soft, Non Tender, Non-Distended, No Hepato-splenomegaly Extremities: No edema Skin: No rashes, No breakdown Musculoskeletal: No Tenderness to Palpation of Joints or Extremities Lymphatic: No Cervical, Supraclavicular, or Inguinal Adenopathy Neurological: Cranial nerves II-XII grossly intact Psych/Mental Status: Normal Affect, Appropriate Laboratory Results 11/09/17 17:11: POC Glucose 195 H 11/09/17 21:35: POC Glucose 232 H 11/10/17 06:55: POC Glucose 139 H Current Medications Ascorbic Acid (Vitamin C) 500 mg PO DAILY [facility] Last Admin: 11/10/17 08:31 Dose: 500 mg Brimonidine Tartrate (Alphagan P 0.15%) 1 drop LEFT EYE BID [facility] Last Admin: 11/09/17 21:48 Dose: 1 drop Cholecalciferol (Vitamin D) 5,000 unit PO DAILY [facility] Last Admin: 11/09/17 12:29 Dose: 5,000 unit Cyanocobalamin (Vitamin B12) 500 mcg PO DAILY@0800 [facility] Last Admin: 11/10/17 08:31 Dose: 500 mcg Dextrose (D50w Syringe) 0 gm IV X1 PRN; Protocol PRN Reason: Hypoglycemia Glucagon () 1 mg IM .X1 PRN PRN Reason: Hypoglycemia Heparin Sodium (Porcine) (Heparin Na) 5,000 unit SC Q8 [facility] Last Admin: 11/10/17 06:41 Dose: 5,000 units Ceftriaxone Sodium (Rocephin) 1 gm in 50 mls @ 100 mls/hr IV Q24 [facility] Last Admin: 11/09/17 12:31 Dose: 100 mls/hr Ibuprofen (Motrin) 600 mg PO Q6H PRN PRN PRN Reason: PAIN Last Admin: 11/09/17 22:00 Dose: 600 mg Insulin Glargine (Lantus ([facility])) 10 units SC QHS [facility] Last Admin: 11/09/17 21:51 Dose: 10 units Insulin Human Lispro (Humalog Kwikpen ([facility])) 0 unit SQ ACHS [facility] PRN Reason: Protocol Last Admin: 11/10/17 06:56 Dose: Not Given Losartan Potassium (Cozaar) 75 mg PO DAILY [facility] Last Admin: 11/10/17 08:31 Dose: 75 mg Magnesium Hydroxide (Milk Of Magnesia) 30 ml PO DAILY PRN PRN PRN Reason: Constipation Magnesium Oxide (Mag-Ox 400) 400 mg PO QHS [facility] Last Admin: 11/09/17 21:49 Dose: 400 mg Multivitamins (Multivitamin) 1 tablet PO DAILY@0800 [facility] Last Admin: 11/10/17 08:31 Dose: 1 tablet Nutritional Formula (Lactose Free) (Glucerna Shake) 120 ml PO TIDCM [facility] Last Admin: 11/10/17 08:30 Dose: 120 ml [id number] Ethyl Esters (Lovaza) 1 gm PO DAILY [facility] Last Admin: 11/09/17 12:30 Dose: 1 gm Ondansetron HCl (Zofran) 4 mg IV Q6H PRN PRN PRN Reason: NAUSEA/VOMITING Last Admin: 11/09/17 14:30 Dose: 4 mg Oxybutynin Chloride (Ditropan) 5 mg PO DAILY [facility] Last Admin: 11/10/17 08:32 Dose: 5 mg Oxycodone HCl (Oxyir) 5 mg PO Q4H PRN PRN PRN Reason: Moderate Pain (pain scale 4-5) Pantoprazole Sodium (Protonix) 20 mg PO DAILY [facility] Last Admin: 11/10/17 08:32 Dose: 20 mg Pravastatin Sodium (Pravachol) 10 mg PO QHS [facility] Last Admin: 11/09/17 21:49 Dose: 10 mg Sodium Chloride () 5 - 30 ml IV UD PRN PRN Reason: SALINE FLUSH Last Admin: 11/09/17 14:30 Dose: 20 ml Trazodone HCl (Desyrel) 150 mg PO QHS [facility] Last Admin: 11/09/17 21:49 Dose: 150 mg Zolpidem Tartrate (Ambien (Generic)) 5 mg PO QHS PRN PRN PRN Reason: INSOMNIA Medical Necessity - Tobacco Use Smoking Status: Former smoker Tobacco Use: Non-smoker Assessment/Plan All Active Problems Weakness (Acute) 77 y/o F with PMHx of Obesity, hypertension, hyperlipidemia,, Diabetes mellitus type II, Chronic abdominal pain, Chronic Diarrhea, Chronic Back Pain with spinal stenosis admitted on 11/08/17 with history of progressively worsening weakness. 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 1. Debility, likely secondary to possible recent Acute Urinary Tract Infection, PT and OT evaluating, will follow up on recommendations. 2. Acute UTI, stable vitals, culture pending, continue on IV Rocephin for now, will aim for 3 days pending culture results 3. Hypertension, controlled, continue with home medications. 4. Hyperlipidemia, on statin. 5. Diabetes mellitus type II, blood sugars are slightly uncontrolled, with diarrhea resolved, will continue to hold metformin, continue on home insulin, resume Amaryl, continue on ADA diet, Accu-Cheks with insulin sliding scale. 6. Abdominal pain, diarrhea, resolved for now, would hold metformin, would need to follow-up with a cardiology specialist at discharge. 7. Chronic back pain, spinal stenosis history, stable, continue home regimen 8. Obesity, weight loss and lifestyle changes encouraged. 9. DVT prophylaxis - on heparin. Code Visit Inpatient E&M: 73663 Subs Hosp L2
[2017-11-10] MEDS: BRIMONIDINE 0.15% 5 ML Bottle 1 DRP LEFT EYE ×2 (11:25→21:35)
[2017-11-10] MEDS: Ceftriaxone 1 GM/50 ML BAG IV (11:26)
[2017-11-10] MEDS: 0.9% NaCl Peripheral Flush Adult/Peds IV (11:26)
[2017-11-10] MEDS: Omega-3 Acid Ethyl Esters 1 GM Capsule PO (11:26)
[2017-11-10] MEDS: Insulin Lispro 100 UNIT/ML INSULN.PEN SQ ×3 (11:52→21:35)
[2017-11-10 12:35] LABS: Bedside Glucose 223 mg/dL (70-110)
[2017-11-10 13:33] VITALS: BP 119/58; PULSE 58; RESP 18; TEMP 36.7; O2SAT 96
[2017-11-10] MEDS: Glimepiride 4 MG Tablet PO (17:15)
[2017-11-10 17:20] LABS: Bedside Glucose 250 mg/dL (70-110)
[2017-11-10 19:37] VITALS: BP 134/65; PULSE 62; RESP 16; TEMP 36.8; O2SAT 100
[2017-11-10] MEDS: Pravastatin 20 MG Tablet 10 MG PO (21:34)
[2017-11-10] MEDS: Calcium Carbonate 500 MG Tablet PO (21:34)
[2017-11-10] MEDS: Magnesium Oxide 400 MG Tablet PO (21:34)
[2017-11-10] MEDS: traZODone 100 MG Tablet 150 MG PO (21:35)
[2017-11-10 21:50] LABS: Bedside Glucose 182 mg/dL (70-110)
[2017-11-11 01:30] VITALS: BP 146/77; PULSE 83; RESP 16; TEMP 36.6; O2SAT 98
[2017-11-11] MEDS: Heparin Injection (Vial) 5,000 UNIT/ML VIAL 5000 UNIT SC (06:24)
[2017-11-11 06:30] VITALS: BP 139/61; PULSE 68; RESP 16; TEMP 36.7; O2SAT 97
[2017-11-11 06:30] LABS: Bedside Glucose 115 mg/dL (70-110)
[2017-11-11 08:10] VITALS: O2SAT 96
[2017-11-11] MEDS: Multivitamins,Therapeutic Tablet 1 TABLET PO (08:29)
[2017-11-11] MEDS: Glimepiride 4 MG Tablet PO (08:30)
[2017-11-11] MEDS: Cyanocobalamin 500 MCG Tablet PO (08:31)
[2017-11-11] MEDS: BRIMONIDINE 0.15% 5 ML Bottle 1 DRP LEFT EYE (08:32)
[2017-11-11] MEDS: Pantoprazole Sodium 20 MG Tablet PO (08:33)
[2017-11-11] MEDS: Calcium Carbonate 500 MG Tablet PO (08:34)
--- NOTE | 2017-11-11 08:34 | PCM.DC ---
- Discharge Diagnoses Current Active Problems: Current Active and Chronic Problems Weakness (Acute) Reason(s) for Visit for Discharge Instructions: Weakness You will use the following diet at home:: Calorie/Carbohydrate Controlled (specify 1200, 1400, etc), Cardiac Your food should be the consistency of: Regular Your liquids should be the consistency of: Regular/Thin Discharge Activity: Return to Normal Activity Additional Instructions: Note the changes to your medications. You are off metformin for now because that can cause diarrhea. Discuss with your primary doctor about use of metformin. You will be prescribed a wheeled walker to use at home when walking. Allergies/Adverse Reactions: Allergies aspirin Allergy (Verified 11/09/17 09:27) Rash codeine Allergy (Verified 11/09/17 09:27) Rash NSAIDS (Non-Steroidal Anti-Inflamma Allergy (Verified 11/09/17 09:27) Rash Penicillins Allergy (Verified 11/09/17 09:27) Rash solifenacin [From [facility]] Allergy (Verified 11/09/17 09:27) Unknown Sulfa (Sulfonamide Antibiotics) Allergy (Verified 11/09/17 09:27) Rash Medications to take at Discharge Ascorbic Acid [Vitamin C] 500 mg PO DAILY 11/08/17 Brimonidine 0.15% [Alphagan P 0.15%] 1 drop LEFT EYE BID 11/08/17 Calcium Carbonate [Calcium] 600 mg PO QHS 11/08/17 Cholecalciferol (Vitamin D3) [Vitamin D3] 5,000 unit PO DAILY 11/08/17 Cyanocobalamin [Vitamin B12] 1 tab PO DAILY@0800 11/08/17 Glimepiride [Amaryl] 4 mg PO BID 11/08/17 Insulin Glargine,Hum.rec.anlog [Lantus] 18 unit SC QHS 11/08/17 Losartan Potassium 75 mg PO DAILY 11/08/17 Magnesium Oxide [Magnesium] 400 mg PO QHS 11/08/17 Multivitamin [Daily Multiple Vitamin] 1 each PO DAILY 11/08/17 [place]-3 Fatty Acids/Fish Oil [Fish Oil 1,000 mg Capsule] 1 each PO DAILY 11/08/17 Omeprazole 20 mg PO DAILY 11/08/17 Oxybutynin Chloride [Ditropan Xl] 5 mg PO DAILY 11/08/17 Pravastatin Sodium [Pravachol] 10 mg PO QHS 11/08/17 Trazodone HCl 150 mg PO QHS 11/08/17 Orders to be completed after discharge: Basic Metabolic Profile (BMP) Time Frame: 1 Week, Location: Laboratory CBC W/Diff, Automated Time Frame: 1 Week, Location: Laboratory Primary Care Physician: Marilee Jiang DO [Primary Care Provider] - Please follow up with your Primary Care Physician in: in 1-2 weeks Test Results: Test results from this visit will be discussed in further detail at your follow-up appointment, if applicable. Proposed Discharge Date: 11/11/17
[2017-11-11] MEDS: Ascorbic Acid 500 MG Tablet PO (08:36)
[2017-11-11] MEDS: Losartan Potassium 50 MG Tablet 75 MG PO (08:36)
[2017-11-11] MEDS: Oxybutynin 5 MG Tablet PO (08:37)
[2017-11-11] MEDS: Omega-3 Acid Ethyl Esters 1 GM Capsule PO (08:37)
--- NOTE | 2017-11-11 08:39 | DCINST_ITS ---
- Discharge Diagnoses Current Active Problems: Current Active and Chronic Problems Weakness (Acute) Reason(s) for Visit for Discharge Instructions: Weakness You will use the following diet at home:: Calorie/Carbohydrate Controlled ( specify 1200, 1400, etc), Cardiac Your food should be the consistency of: Regular Your liquids should be the consistency of: Regular/Thin Discharge Activity: Return to Normal Activity Additional Instructions: Note the changes to your medications. You are off metformin for now because that can cause diarrhea. Discuss with your primary doctor about use of metformin. You will be prescribed a wheeled walker to use at home when walking. Allergies/Adverse Reactions: Allergies aspirin Allergy (Verified 11/09/17 09:27) Rash codeine Allergy (Verified 11/09/17 09:27) Rash NSAIDS (Non-Steroidal Anti-Inflamma Allergy (Verified 11/09/17 09:27) Rash Penicillins Allergy (Verified 11/09/17 09:27) Rash solifenacin [From [facility]] Allergy (Verified 11/09/17 09:27) Unknown Sulfa (Sulfonamide Antibiotics) Allergy (Verified 11/09/17 09:27) Rash Medications to take at Discharge Ascorbic Acid [Vitamin C] 500 mg PO DAILY 11/08/17 Brimonidine 0.15% [Alphagan P 0.15%] 1 drop LEFT EYE BID 11/08/17 Calcium Carbonate [Calcium] 600 mg PO QHS 11/08/17 Cholecalciferol (Vitamin D3) [Vitamin D3] 5,000 unit PO DAILY 11/08/17 Cyanocobalamin [Vitamin B12] 1 tab PO DAILY@0800 11/08/17 Glimepiride [Amaryl] 4 mg PO BID 11/08/17 Insulin Glargine,Hum.rec.anlog [Lantus] 18 unit SC QHS 11/08/17 Losartan Potassium 75 mg PO DAILY 11/08/17 Magnesium Oxide [Magnesium] 400 mg PO QHS 11/08/17 Multivitamin [Daily Multiple Vitamin] 1 each PO DAILY 11/08/17 [place]-3 Fatty Acids/Fish Oil [Fish Oil 1,000 mg Capsule] 1 each PO DAILY Omeprazole 20 mg PO DAILY 11/08/17 Oxybutynin Chloride [Ditropan Xl] 5 mg PO DAILY 11/08/17 Pravastatin Sodium [Pravachol] 10 mg PO QHS 11/08/17 Trazodone HCl 150 mg PO QHS 11/08/17 Orders to be completed after discharge: Basic Metabolic Profile (BMP) Time Frame: 1 Week, Location: Laboratory CBC W/Diff, Automated Time Frame: 1 Week, Location: Laboratory Primary Care Physician: Marilee Jiang DO [Primary Care Provider] - Please follow up with your Primary Care Physician in: in 1-2 weeks Test Results: Test results from this visit will be discussed in further detail at your follow- up appointment, if applicable. Proposed Discharge Date: 11/11/17
--- NOTE | 2017-11-11 08:39 | PCM.DC.SUM ---
Discharge Date and Diagnosis Date of Admission: 11/08/17 Date of Discharge: 11/11/17 - Primary Discharge Diagnosis Active and Suspected Problems Weakness (Acute) Debility Acute UTI Hyperglycemia in a known type II DM Abdominal pain Acute on chronic diarrhea - Secondary Discharge Diagnosis Chronic Problems Benign essential hypertension (Chronic) Type 2 diabetes mellitus (Chronic) Gastroesophageal reflux disease (Chronic) Obesity (Chronic) Osteoarthritis (Chronic) Osteoarthritis (Chronic) Obesity (Chronic) Gastroesophageal reflux disease (Chronic) Type 2 diabetes mellitus (Chronic) Benign essential hypertension (Chronic) Hospital Course and Treatment Imaging Results: Clinical Impression(s) from Imaging Studies Chest X-Ray 11/08/17 18:20 IMPRESSION: No acute cardiopulmonary disease. Electronically Signed: Joshua Roca DO at 18:54 EDT Tel [phone], Service support , None Operations: None Procedures: None Summary of Care Provided: 77 y/o F with PMHx of Obesity, hypertension, hyperlipidemia, Diabetes mellitus type II, Chronic abdominal pain, Chronic Diarrhea, Chronic Back Pain with spinal stenosis admitted on 11/08/17 with history of progressively worsening weakness. 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 Active management was as follows: 1. Debility, likely secondary to possible recent Acute Urinary Tract Infection, PT and OT evaluated the patient and recommend home discharge but with a wheeled walker as patient could not see well, from her chronic vision problems. 2. Acute UTI, urine cultures were negative, stable vitals. Treated with IV Rocephin for 3 days. 3. Hypertension, controlled, continue home regimen 4. Hyperlipidemia, on statin. 5. Diabetes mellitus type II, was on metformin and home insulin as well as amaryl, metformin discontinued on account of diarrhea. 6. Abdominal pain, acute on chronic diarrhea, likely secondary to metformin use. Diarrhea resolved on upon admission. Discussed with patient that she needs to let her primary care no and might need to avoid metformin, primary care doctor to consider GI follow-up at discharge. 7. Chronic back pain, spinal stenosis history, stable, continue home regimen 8. Obesity, weight loss and lifestyle changes encouraged. Discharge Diet: Low fat/ Low Cholesterol, 2000 mg Sodium Diet, Carb Control Diet Discharge Activity: Return to Normal Activity Home Medications: Medications to take at Discharge Ascorbic Acid [Vitamin C] 500 mg PO DAILY 11/08/17 Brimonidine 0.15% [Alphagan P 0.15%] 1 drop LEFT EYE BID 11/08/17 Calcium Carbonate [Calcium] 600 mg PO QHS 11/08/17 Cholecalciferol (Vitamin D3) [Vitamin D3] 5,000 unit PO DAILY 11/08/17 Cyanocobalamin [Vitamin B12] 1 tab PO DAILY@0800 11/08/17 Glimepiride [Amaryl] 4 mg PO BID 11/08/17 Insulin Glargine,Hum.rec.anlog [Lantus] 18 unit SC QHS 11/08/17 Losartan Potassium 75 mg PO DAILY 11/08/17 Magnesium Oxide [Magnesium] 400 mg PO QHS 11/08/17 Multivitamin [Daily Multiple Vitamin] 1 each PO DAILY 11/08/17 [place]-3 Fatty Acids/Fish Oil [Fish Oil 1,000 mg Capsule] 1 each PO DAILY 11/08/17 Omeprazole 20 mg PO DAILY 11/08/17 Oxybutynin Chloride [Ditropan Xl] 5 mg PO DAILY 11/08/17 Pravastatin Sodium [Pravachol] 10 mg PO QHS 11/08/17 Trazodone HCl 150 mg PO QHS 11/08/17 Primary Care Physician: Mrailee Jiang DO [Primary Care Provider] - Please follow up with your Primary Care Physician in: in 1-2 weeks Disposition: Home Minutes spent on discharge:: 35 Patient Condition:: Stable Medical Necessity - Tobacco Use Smoking Status: Former smoker Tobacco Use: Non-smoker Meaningful Use Info Meaningful Use Diagnoses (Choose all that apply): None applicable Code Visit Inpatient E&M: 37302 Disch Hosp
[2017-11-11] MEDS: 0.9% NaCl Peripheral Flush Adult/Peds IV (10:04)
[2017-11-11] MEDS: Ceftriaxone 1 GM/50 ML BAG IV (10:04)
[2017-11-11] MEDS: Insulin Lispro 100 UNIT/ML INSULN.PEN SQ (10:15)
[2017-11-11 10:26] LABS: Bedside Glucose 245 mg/dL (70-110)
[2017-11-11 12:18] VITALS: BP 138/59; PULSE 61; RESP 18; TEMP 36.6; O2SAT 99
== END 2017-11-11 11:45 | disposition home or self-care (01) | DRG 948 ==
LOC: ED 19:18 → MS3 22:17
PROVIDERS: Family Medicine; Admitting Provider Hospitalist; Emergency Provider Emergency Medicine; Family Provider Family Medicine; PCP Family Medicine; Visit Provider Internal Medicine
DX: R53.1 Weakness (principal); N30.00 Acute cystitis without hematuria; Z68.41 Body mass index [BMI] 40.0-44.9, adult; R53.81 Other malaise; E11.65 Type 2 diabetes mellitus with hyperglycemia; R10.84 Generalized abdominal pain; R19.7 Diarrhea, unspecified; I10 Essential (primary) hypertension; Z79.2 Long term (current) use of antibiotics; M54.5 Low back pain; G89.29 Other chronic pain; Z79.52 Long term (current) use of systemic steroids; K21.9 Gastro-esophageal reflux disease without esophagitis; M19.90 Unspecified osteoarthritis, unspecified site; E66.9 Obesity, unspecified; M48.00 Spinal stenosis, site unspecified; E78.5 Hyperlipidemia, unspecified; Z79.4 Long term (current) use of insulin; Z87.891 Personal history of nicotine dependence; Z79.899 Other long term (current) drug therapy; E55.9 Vitamin D deficiency, unspecified; E61.1 Iron deficiency; E53.8 Deficiency of other specified B group vitamins
CPT/HCPCS: 36415; 71045; 72110; 80048; 81001; 82306; 82607; 82962; 83540; 83605; 84484; 85025; 87040; 87086; 87493; 87506; 93005; 97110; 97116; 97162; 97166; 97530; 97535; 97802; 99285; J7030; P9612; A4216; J2405

== ENCOUNTER → 2017-11-14 10:01 | Outpatient (CLI) | payer MEDICARE, OTHER, SELFPAY ==
[2017-11-14 10:06] LABS: Mucous, Urine 0 SEEN /hpf (<or=2+)
[2017-11-14 10:25] LABS: Color, Urine Yellow (Yellow); Glucose, Dipstick Normal (Normal); Ketone-Dipstick Negative (Negative); Leukocyte Esterase-Dipstick 500 /ul (Negative); Nitrite-Dipstick Negative (Negative); Occult Blood-Urine 25 /ul (Negative); Protein-Dipstick 30 mg/dl (Negative); Urine Bilirubin Dipstick Negative (Negative); Urine Clarity Clear (Clear); Urine Urobilinogen Normal (Normal); Urine pH 6.5 (5.0 - 8.0)
[2017-11-14 10:37] LABS: Red Blood Cells-Urine 0-5 SEEN /hpf (0-5); Squamous Epithelial Cells - UA 0-5 SEEN /hpf (5-10); White Blood Cells 25-50 SEEN /hpf (0-5)
[2017-11-14 10:38] LABS: Bacteria RARE /hpf (None Seen)
== END ==
PROVIDERS: Family Provider Family Medicine; PCP Family Medicine; Visit Provider Obstetrics & Gynecology
DX: N30.01 Acute cystitis with hematuria (principal)
CPT/HCPCS: 81001; 87086; 87088

== ENCOUNTER → 2018-01-01 15:38 | Outpatient (CLI) | payer MEDICARE, OTHER, SELFPAY ==
--- NOTE | 2018-01-01 15:40 | BI_ITS ---
MAMMOGRAPHY - BILATERAL SCREENING REASON FOR EXAM: Female, 77 years old. Routine annual screening examination. PERTINENT HISTORY: Sister with breast cancer. TECHNIQUE: Digital bilateral breast miguel (3D mammographic acquisition) in the CC and MLO projections. 2-D mediolateral oblique (MLO) and craniocaudad (CC) views of both breasts were obtained. CAD: Full Field Digital Mammography with Computer Added Detection was performed. COMPARISON: Comparison is made with prior study dated November 28, 2016 and August 26, 2015. FINDINGS: Breast Composition: The breasts are almost entirely fatty. There are no dominant masses or suspicious calcifications. Stable benign-appearing bilateral axillary lymph nodes. Stable benign-appearing bilateral vascular calcifications. No other significant abnormalities are identified. There has been no significant change since the prior study. BI/SCREENING MAMM (CAD), BILAT IMPRESSION: Stable bilateral screening mammogram. Yearly follow-up mammogram recommended. (A) ASSESSMENT CATEGORY: BIRADS Category 2: Benign. A letter regarding these results will be sent to the patient by the facility within 30 days. Approximately 10% of breast cancers are not detected by mammography. A normal mammogram should not delay biopsy of a clinically suspicious abnormality. [id number] Electronically Signed: Brenton Dodge MD at 11:15 EDT Tel [phone], Service support ,
== END ==
PROVIDERS: Family Provider Family Medicine; PCP Family Medicine; Visit Provider Family Medicine
DX: Z12.31 Encounter for screening mammogram for malignant neoplasm of breast (principal)
CPT/HCPCS: 77063; 77067

== ENCOUNTER → 2018-03-04 15:19 | Outpatient (CLI) | payer MEDICARE, OTHER, SELFPAY ==
--- NOTE | 2018-03-04 15:24 | RAD_ITS ---
STUDY: X-RAY - CERVICAL SPINE REASON FOR EXAM: Female, 77 years old. Pain TECHNIQUE: 5 view(s) of the cervical spine were obtained. COMPARISON: 08/23/2010 FINDINGS: There is no evidence of fracture or dislocation in the cervical spine. The dens is intact. There are stable multilevel degenerative changes which is most pronounced in the lower cervical spine. The prevertebral soft tissues are unremarkable. There is no radiodense foreign body. RAD/Cerv Spine 4 or 5 Views IMPRESSION: No fracture or dislocation in the cervical spine. Stable degenerative changes. Electronically Signed: Pritesh [facility], at 16:14 EST Tel , Service support ,
== END ==
PROVIDERS: Family Provider Family Medicine; PCP Family Medicine; Referring Provider Family Medicine; Visit Provider Family Medicine
DX: M54.2 Cervicalgia (principal)
CPT/HCPCS: 72050

== ENCOUNTER → 2018-10-03 | Outpatient (CLI) | payer MEDICARE, OTHER, SELFPAY ==
--- NOTE | 2018-10-04 11:05 | PFTCOMP ---
COMPLETE PULMONARY FUNCTION TEST INTERPRETATION Brief HPI: Patient is a 78 year old female, currently under the care of Dr. Jiang, who presents to [facility] for complete pulmonary function tests secondary to diagnosis of dyspnea. Respiratory therapist reports good effort and reproducible results. Interpretation: Forced expiration spirometry shows no large airways obstructive ventilatory defect with an FEV1 of 85% predicted. There is no significant bronchodilator response by strict ATS criteria. Spirograms are of good quality and plateau normally. The respiratory flow volume loop shows decreased expiratory flow rates at high lung volumes consistent with small airways obstruction. Lung volumes by body plethysmography show a normal total lung capacity at 3.95 L, 91% predicted. All other lung volumes are within normal limits. Diffusion capacity by carbon monoxide is normal at 72% predicted. The airway resistance is elevated. No previous pulmonary function tests were available for review. Impression: These pulmonary function tests are grossly within normal limits. There is some stigmata of possible small airways obstruction.
== END | disposition home or self-care (01) ==
PROVIDERS: Family Provider Family Medicine; PCP Family Medicine; Referring Provider Family Medicine; Visit Provider Family Medicine
DX: Z87.891 Personal history of nicotine dependence (principal)
CPT/HCPCS: 94060; 94726; 94729

== ENCOUNTER → 2019-01-21 | Outpatient (CLI) | payer MEDICARE, OTHER, SELFPAY ==
--- NOTE | 2019-01-21 15:55 | BI_ITS ---
MAMMOGRAPHY - BILATERAL SCREENING REASON FOR EXAM: Female, 78 years old. Routine annual screening examination. PERTINENT HISTORY: Sister with breast cancer. TECHNIQUE: Digital bilateral breast dionicio (3D mammographic acquisition) in the CC and MLO projections. 2-D mediolateral oblique (MLO) and craniocaudad (CC) views of both breasts were obtained. CAD: Full Field Digital Mammography with Computer Added Detection was performed. COMPARISON: Comparison is made with prior examination dated January 01, 2018 and November 28, 2016. FINDINGS: Breast Composition: The breasts are almost entirely fatty. There are no dominant masses or suspicious calcifications. No other significant abnormalities are identified. There has been no significant change since the prior study. BI/SCREEN MAMM (CAD) W/DIONICIO BILAT IMPRESSION: Stable bilateral screening mammogram. Yearly follow-up mammogram recommended. (A) ASSESSMENT CATEGORY: BIRADS Category 1: Negative. A letter regarding these results will be sent to the patient by the facility within 30 days. Approximately 10% of breast cancers are not detected by mammography. A normal mammogram should not delay biopsy of a clinically suspicious abnormality. [id number] Electronically Signed: Brenton Dodge, at 8:26 EDT , Service support ,
== END | disposition home or self-care (01) ==
LOC: OPBI 15:54
PROVIDERS: Family Provider Family Medicine; PCP Family Medicine; Referring Provider Family Medicine; Visit Provider Family Medicine
DX: Z12.31 Encounter for screening mammogram for malignant neoplasm of breast (principal)
CPT/HCPCS: 77063; 77067

== ENCOUNTER → 2019-04-07 08:04 | Outpatient (CLI) | payer MEDICARE, OTHER, SELFPAY ==
[2019-04-07 10:12] LABS: Absolute Lymphocyte Count 3.24 X10^3/uL (0.83-4.51); Absolute Neutrophil Count 5.2 X10^3/uL (2.0-7.7); Basophil# 0.05 X10^3/uL; Basophil% 0.5 % (0-1); Eosinophil# 0.24 X10^3/uL; Eosinophils% 2.5 % (0-5); Hematocrit 41.6 % (37-47); Hemoglobin 13.1 g/dL (12.0-15.0); Lymphocyte # 3.24 X10^3/ul (4.0); Mean Corp Hgb Conc 31.5 g/dL (32-36); Mean Corpuscular Hgb 27.5 pg (27.0-32.0); Mean Corpuscular Volume 87.4 fL (81-99); Mean Platelet Vol. 9.2 fl (6.2-12.0); Monocyte# 0.76 X10^3/uL; NRBC Flagged by Analyzer 0 % (0-5); Neutrophil # 5.19 X10^3/uL (2.7-7.7); Neutrophil % 54.6 % (47-70); Platelet Count 300 K/mm3 (150-450); RBC Distribution Width CV 14.4 % (11.6-14.6); RBC Distribution Width SD 46.5 fl (35.1-43.9); Red Blood Count 4.76 M/mm3 (4.2-5.4); White Blood Count 9.5 K/mm3 (4.4-11.0)
[2019-04-07 10:27] LABS: ALB/GLOB Ratio 0.8 RATIO (0.9-2.4); AST(SGOT) 17 U/L (15-37); Alanine Aminotransfer ALT/SGPT 23 U/L (13-56); Albumin, Serum 3.5 g/dL (3.2-5.0); Alkaline Phosphatase 62 U/L (45-117); Anion Gap 2 (5-15); BUN 14 mg/dL (7-18); BUN/Creat Ratio 19.4 RATIO (10-20); Calcium,Total 8.8 mg/dL (8.5-10.1); Chloride 106 mmol/L (98-107); Cholesterol 132 mg/dL (200); Creatinine, Serum 0.72 mg/dL (0.55-1.02); EST Glomerular Filtration Rate 83 mL/min (>60); Est Glom Filt Rate - Afr Amer 101 mL/min (>60); Globulin 4.4 g/dL (2.2-4.2); Glucose 108 mg/dL (74-106); High Density Lipoprotein 42 mg/dL; Iron 65 ug/dL (50-170); Potassium 4.1 mmol/L (3.5-5.1); Protein, Total 7.9 g/dL (6.4-8.2); Sodium Level 140 mmol/L (136-145); Triglycerides 98 mg/dL; Very Low Density Lipoprotein 20 mg/dL (5-40)
[2019-04-07 10:30] LABS: Vitamin D,25 Hydroxy 38.6 ng/mL (29.95-100.01)
[2019-04-07 10:42] LABS: Microalbumin:Creatinine Ratio 100.8 mg/g CRE (<30 mg/g CRE)
== END ==
PROVIDERS: Family Provider Family Medicine; PCP Family Medicine; Referring Provider Family Medicine; Visit Provider Family Medicine
DX: E11.9 Type 2 diabetes mellitus without complications (principal); I10 Essential (primary) hypertension; E55.9 Vitamin D deficiency, unspecified; E78.5 Hyperlipidemia, unspecified; Z51.81 Encounter for therapeutic drug level monitoring
CPT/HCPCS: 36415; 80053; 80061; 82043; 82306; 82570; 83540; 85025

== ENCOUNTER → 2020-01-24 | Outpatient (CLI) | payer MEDICARE, OTHER, SELFPAY | END | disposition home or self-care (01) | LOC: LABSPEC 11:23 | PROVIDERS: PCP Family Medicine; Referring Provider Urology; Visit Provider Urology | DX: R19.7 Diarrhea, unspecified (principal) | CPT/HCPCS: 87493 ==

== ENCOUNTER → 2020-02-24 15:52 | Outpatient (CLI) | payer MEDICARE, OTHER, SELFPAY ==
--- NOTE | 2020-02-24 15:55 | BI_ITS ---
MAMMOGRAPHY - BILATERAL SCREENING REASON FOR EXAM: Female, 79 years old. Routine annual screening examination. PERTINENT HISTORY: Sister with breast cancer. TECHNIQUE: Digital bilateral breast dionicio (3D mammographic acquisition) in the CC and MLO projections. 2-D mediolateral oblique (MLO) and craniocaudad (CC) views of both breasts were obtained. CAD: Full Field Digital Mammography with Computer Added Detection was performed. COMPARISON: Comparison is made with prior examination dated 01/21/2019 and 01/01/2018. FINDINGS: Breast Composition: There are scattered areas of fibroglandular density. There are no dominant masses or suspicious calcifications. There is a 5.4 mm well-defined nodule in the anterior lateral upper aspect of the left breast. Correlation with ultrasound is recommended for further evaluation. This appears to be a small benign-appearing lymph node. No other significant abnormalities are identified. BI/SCREEN MAMM (CAD) W/DIONICIO BILAT IMPRESSION: 5.4 mm well-defined nodule in the anterior lateral upper aspect of the left breast. Correlation with ultrasound is recommended. ASSESSMENT CATEGORY: BIRADS Category 0: Incomplete. Need additional imaging evaluation. A letter regarding these results will be sent to the patient by the facility within 30 days. Approximately 10% of breast cancers are not detected by mammography. A normal mammogram should not delay biopsy of a clinically suspicious abnormality. [id number] Electronically Signed: Brenton Dodge, at 8:23 EST , Service support ,
== END ==
PROVIDERS: PCP Family Medicine; Referring Provider Family Medicine; Visit Provider Family Medicine
DX: Z12.31 Encounter for screening mammogram for malignant neoplasm of breast (principal)
CPT/HCPCS: 77063; 77067

== ENCOUNTER → 2020-03-03 09:50 | Outpatient (CLI) | payer MEDICARE, OTHER, SELFPAY ==
--- NOTE | 2020-03-03 09:52 | US_ITS ---
STUDY: ULTRASOUND BREAST - LEFT REASON FOR EXAM: Female, 79 years old. Abnormal screening mammogram. TECHNIQUE: Axial and longitudinal images of the LEFT breast were performed with a high resolution ultrasound transducer. # OF IMAGES: 8 COMPARISON: Comparison is made with prior mammogram dated 02/24/2020. FINDINGS: LEFT Breast: The mammographic abnormality corresponds to a 7 mm x 7 mm x 4 mm cyst at the 3 o''clock position of the breast at 3 cm from nipple. US/Breast Limited Unilateral IMPRESSION: The mammographic abnormality corresponds to a 7 mm x 7 mm x 4 mm cyst. Routine annual mammographic follow-up is recommended. ASSESSMENT CATEGORY: BIRADS Category 2: Benign. A letter regarding these results will be sent to the patient by the facility within 30 days. Electronically Signed: Brenton Dodge, at 13:57 EST , Service support ,
== END ==
PROVIDERS: PCP Family Medicine; Referring Provider Family Medicine; Visit Provider Family Medicine
DX: R92.2 Inconclusive mammogram (principal)
CPT/HCPCS: 76642

== ENCOUNTER → 2020-10-05 15:29 | Outpatient (CLI) | payer MEDICARE, OTHER, SELFPAY ==
[2020-10-05 17:52] LABS: Absolute Lymphocyte Count 3.59 X10^3/uL (0.83-4.51); Absolute Neutrophil Count 6.7 X10^3/uL (2.0-7.7); Basophil# 0.06 X10^3/uL; Basophil% 0.5 % (0-1); Eosinophil# 0.14 X10^3/uL; Eosinophils% 1.2 % (0-5); Hematocrit 39.9 % (37-47); Hemoglobin 12.4 g/dL (12.0-15.0); Lymphocyte # 3.59 X10^3/ul (0.83-4.51); Lymphocyte % 31.4 % (19-41); Mean Corp Hgb Conc 31.1 g/dL (32-36); Mean Corpuscular Hgb 27.3 pg (27.0-32.0); Mean Corpuscular Volume 87.9 fL (81-99); Mean Platelet Vol. 9.6 fl (6.2-12.0); Monocyte# 0.83 X10^3/uL; Monocyte% 7.3 % (0-10); NRBC Flagged by Analyzer 0 % (0-5); Neutrophil # 6.74 X10^3/uL (2.7-7.7); Neutrophil % 59.1 % (47-70); Platelet Count 342 K/mm3 (150-450); RBC Distribution Width CV 14.1 % (11.6-14.6); RBC Distribution Width SD 45.8 fl (35.1-43.9); Red Blood Count 4.54 M/mm3 (4.2-5.4); White Blood Count 11.4 K/mm3 (4.4-11.0)
[2020-10-05 18:18] LABS: Vitamin D,25 Hydroxy 52.4 ng/mL
[2020-10-05 18:19] LABS: ALB/GLOB Ratio 0.8 RATIO (0.9-2.4); AST(SGOT) 15 U/L (15-37); Alanine Aminotransfer ALT/SGPT 24 U/L (13-56); Albumin, Serum 3.3 g/dL (3.2-5.0); Alkaline Phosphatase 108 U/L (45-117); Anion Gap 6 (5-15); BUN 18 mg/dL (7-18); BUN/Creat Ratio 18.6 RATIO (10-20); Calcium,Total 8.8 mg/dL (8.5-10.1); Chloride 103 mmol/L (98-107); Cholesterol 117 mg/dL (200); Creatinine, Serum 0.97 mg/dL (0.55-1.02); EST Glomerular Filtration Rate 59 mL/min (>60); Est Glom Filt Rate - Afr Amer 71 mL/min (>60); Globulin 4.3 g/dL (2.2-4.2); Glucose 215 mg/dL (74-106); High Density Lipoprotein 35 mg/dL; Protein, Total 7.6 g/dL (6.4-8.2); Sodium Level 137 mmol/L (136-145); Triglycerides 192 mg/dL; Very Low Density Lipoprotein 38 mg/dL (5-40)
[2020-10-05 18:20] LABS: Hemoglobin A1c 7.6 % (3.8-5.6)
[2020-10-05 18:29] LABS: Microalbumin,Random Urine 28.2 mg/L (NO RANGE EST.); Microalbumin:Creatinine Ratio 46.4 mg/g CRE (<30 mg/g CRE)
== END ==
PROVIDERS: PCP Family Medicine; Referring Provider Family Medicine; Visit Provider Family Medicine
DX: E11.9 Type 2 diabetes mellitus without complications (principal); E55.9 Vitamin D deficiency, unspecified; E78.5 Hyperlipidemia, unspecified; Z51.81 Encounter for therapeutic drug level monitoring
CPT/HCPCS: 36415; 80053; 80061; 82043; 82306; 82570; 83036; 85025

== ENCOUNTER → 2020-10-14 14:21 | Outpatient (CLI) | payer MEDICARE, OTHER, SELFPAY ==
--- NOTE | 2020-10-14 14:23 | CT_ITS ---
STUDY: CT ABDOMEN AND PELVIS WITH CONTRAST REASON FOR EXAM: Female, 80 years old. Abdominal pain. Status post hysterectomy and appendectomy. RADIATION DOSAGE (If Supplied By Facility): CTDIvol = ( 18.97 ) mGy, DLP = ( 1298.96 ) mGycm TECHNIQUE: Transaxial images were obtained from the dome of the diaphragm to the symphysis pubis with oral contrast. Oral and amp; IV Readi-CAT and amp; 100mL Isovue-300 was administered. Sagittal and coronal images were reconstructed. Individualized dose optimization techniques were used for this CT. COMPARISON: 08/21/2016. FINDINGS: The visualized lung bases are unremarkable. The visualized portions of the heart are within normal limits. Normal liver. There is non-visualization of the gallbladder, which may be secondary to either contraction or a prior cholecystectomy. Normal spleen. Normal pancreas. Normal bilateral adrenal glands. Normal right kidney. Stable small left renal cysts. Normal visualized stomach. Normal small intestine. Normal colon. There is non-visualization of the appendix. There is diffuse atherosclerotic calcification of the abdominal aorta, without a demonstrated aneurysm. Normal inferior vena cava. Normal retroperitoneum. Normal urinary bladder. Normal vaginal cuff. There is a pessary in the vaginal vault. There are small soft tissue densities along the pelvic sidewalls consistent with retained ovaries. No pelvic lymphadenopathy. No free air or free fluid is seen within the peritoneal cavity. Evidence of ventral hernia repair. There are diffuse degenerative changes of the visualized lumbar spine. CT/Abdomen/Pelvis WITH Contrast IMPRESSION: 1. No evidence of acute intra-abdominal or pelvic process. 2. Pessary in the vaginal vault. There is no other significant interval change. Electronically Signed: Joshua Roca DO at 16:03 EDT Tel [phone], Service support ,
== END ==
PROVIDERS: PCP Family Medicine; Referring Provider Family Medicine; Visit Provider Family Medicine
DX: K43.9 Ventral hernia without obstruction or gangrene (principal); R10.31 Right lower quadrant pain
CPT/HCPCS: 74177; Q9967

== ENCOUNTER → 2021-03-21 15:46 | Outpatient (CLI) | payer MEDICARE, OTHER, SELFPAY ==
--- NOTE | 2021-03-21 15:48 | BI_ITS ---
MAMMOGRAPHY - BILATERAL SCREENING REASON FOR EXAM: Female, 80 years old. Routine annual screening examination. PERTINENT HISTORY: Sister with breast cancer. TECHNIQUE: Digital bilateral breast dionicio (3D mammographic acquisition) in the CC and MLO projections. 2-D mediolateral oblique (MLO) and craniocaudad (CC) views of both breasts were obtained. CAD: Full Field Digital Mammography with Computer Added Detection was performed. COMPARISON: Comparison is made with prior study dated 02/24/2020 and 01/21/2019. FINDINGS: Breast Composition: There are scattered areas of fibroglandular density. There are no dominant masses or suspicious calcifications. Stable 5.4 mm well-defined nodule in the anterior lateral upper aspect of the left breast. Prior sonogram demonstrated this to be a cyst. No other significant abnormalities are identified. There has been no significant change since the prior study. BI/SCRN MAMM (CAD)W/DIONICIO BILAT IMPRESSION: Stable bilateral screening mammogram. Yearly follow-up mammogram recommended. (A) ASSESSMENT CATEGORY: BIRADS Category 2: Benign. A letter regarding these results will be sent to the patient by the facility within 30 days. Approximately 10% of breast cancers are not detected by mammography. A normal mammogram should not delay biopsy of a clinically suspicious abnormality. [id number] Electronically Signed: Brenton Dodge MD at 10:28 EST , Service support ,
== END ==
PROVIDERS: PCP Family Medicine; Referring Provider Family Medicine; Visit Provider Family Medicine
DX: Z12.31 Encounter for screening mammogram for malignant neoplasm of breast (principal)
CPT/HCPCS: 77063; 77067

== ENCOUNTER → 2021-04-21 | Outpatient (CLI) | payer MEDICARE, OTHER, SELFPAY | END | disposition home or self-care (01) | PROVIDERS: PCP Family Medicine; Visit Provider Physician Assistant Medical | DX: Z11.52 Encounter for screening for COVID-19 (principal) | CPT/HCPCS: 87635; U0003; U0005 ==

== ENCOUNTER 2021-04-27 16:30 | Outpatient (RCR) | payer MEDICARE, OTHER, SELFPAY ==
--- NOTE | 2021-03-07 17:15 | HP.PTEVAL ---
Patient's Visit Information LAZARA SHANE is a 80 year old F referred to Physical Therapy by Dr. Marilee Jiang DO with a diagnosis of Balance and Strength Deficit. Date of Evaluation: 03/07/21 Physical Therapist: Elizabeth Thomas DPT - Visit Plan Frequency: 2x /Week Duration: 4 Weeks Plan: Focus on LE and core strength/stabilization, balance and endurance for functional mobility. HEP Given IE: Educated on movement importance, seated: HR/TR, marching, LAQ, Standing: marching, hip abd, hip extn at kitchen sink - Subjective Patient reports that she is here today for her balance. She has fallen a few times recently and the MD thinks maybe some therapy may help. 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 She lives with her daughter who can help as needed. Does not have stairs inside but has 4 steps to get in/out of the house- with a handrail. She uses a straight cane or a walker at all times. Uses a walker in the house and a cane outside in the community. She reports that she is falling monthly. Last time she fell was January. Last fall was in the dark. No loss of consciousness or injuries due to falling. Does not fall one direction. Sometimes she has pain in the legs- comes and goes. Her back is bothering her today- but its more muscular. She goes to breakfast and lunch a few times a week and she goes out on the porch. She loves to sit in her recliner. N/T: comes and goes. She does not do any regular exercise- but does have hand weights and a cube (pedal bike). PMHx/Meds: no changes- antibiotic - Objective Posture: FH, RS, increased kyphosis- can correct with verbal and tactile cues. Gait: decreased erich and stride length- straight cane. HR/TR: able with UE A. SLS: weight shift but unable to SLS without UE A. Transfers: sit to stand requires UE A and extra time. ROM: WFL in all planes. Strength: Core: poor, Hip: flexion: 4-/5, extn: 4/5, Abd/Add: 4/5, Knee: 4/5, Ankle: 4+/5. Flex: HS: severe, Gastroc: severe - Balance/Special Test Scores Lower Extremity Functional Score: 21 TUG Test Time Seconds: 28.58 - Goals Goal 1:: Patient will be I with HEP and progression Goal Time Frame: 4-6 Weeks Goal 2:: Patient will improve her TUG test by 10 seconds to improve balance. Goal Time Frame: 4-6 Weeks Goal 3:: Patient will improve her FGA by 4 points Goal Time Frame: 4-6 Weeks Goal 4:: Patient will perform sit to stand without UE A Goal Time Frame: 4-6 Weeks - Rehabilitation Potential Physical Therapy Diagnosis: Patient presents with hypomobility- she has decreased LE and core strength/stabilization, proprioception and muscular endurance leading to poor balance and decreased functional mobility. Rehabilitation Potential: Fair - Anticipated Interventions Patient/Client Instruction: Educate patient on: Benefits of Fitness Program Therapeutic Exercise to Include: Strength training, Endurance training, Balance training, Coordination, Agility training, Body mechanics, Postural training, Flexibilty training, Gait and locomotor training, Neuromotor development, Dynamic Lumbar Stabilization, Scapular Strength/Stabilization For the Purpose of:: To improve muscle performance and motor function Functional Training to Include: ADL Training, Gait training Thank you for the opportunity to evaluate your patient. For Medicare and Medicare HMO plans, please review the plan of care and approve it. It will need to be FAXED BACK to us at [phone] for Medicare purposes. For Medicare only, by signing this I certify the plan of care. Please let me know if there are questions or concerns regarding this plan of care. Physician Signature: Date:
--- NOTE | 2021-04-28 09:19 | HP.PTDCSUM ---
It has been my pleasure to treat LAZARA SHANE referred by Dr. Marilee Jiang DO, with the diagnosis of Balance and Strength Deficit for a total of 7 visit(s). Discharge Date: Please see the following information for a summary of their discharge status. Subjective: Patient reports that she was in [place] for a week and did great- she has had no falls and feels more confident on her feet. She is compliant with HEP and feels that she is ready for discharge. She reports being tired today Bilat knees Pain Intensity (Out of 10): Unrated % Improvement: 80 Objective/Function: Posture: FH, RS, increased kyphosis- can correct with verbal and tactile cues. Gait: decreased erich and stride length- straight cane. HR/TR: able with UE A. SLS: 3 sec. Transfers: sit to stand requires without UE A. ROM: WFL in all planes. Strength: Core: Fair, Hip: flexion: 4+/5, extn: 4+/5, Abd/Add: 4+/5, Knee: 4+/5, Ankle: 4+/5. Flex: HS: severe, Gastroc: severe Goal 1:: Patient will be I with HEP and progression Goal Progress: Goal Met Goal 2:: Patient will improve her TUG test by 10 seconds to improve balance. Goal Progress: Progressing Goal 3:: Patient will improve her FGA by 4 points Goal Progress: Progressing Goal 4:: Patient will perform sit to stand without UE A Goal Progress: Progressing Plan: Discharge to I HEP- addition of exercises today- sit to stands, step up, side stepping and standing hamstring curls If there are questions or concerns regarding this patient's physical therapy, please feel free to call me at [phone]. Thank you for the referral of this patient. Sincerely, Elizabeth Thomas, DPT Balance/Gait/Functional tests - Balance/Special Test Scores Functional Gait Assessment Score: 20 % Disability: 33.3400 Lower Extremity Functional Score: 45 TUG Test Time Seconds: 18.5 Tug Test: <20 sec.=mostly independent
== END 2021-04-27 19:00 | disposition home or self-care (01) ==
LOC: PT 16:30
PROVIDERS: PCP Family Medicine; Referring Provider Family Medicine; Visit Provider Family Medicine
DX: R29.6 Repeated falls (principal); E11.9 Type 2 diabetes mellitus without complications
CPT/HCPCS: 97110; 97162; 97164

== ENCOUNTER 2021-05-24 07:42 | Outpatient (CLI) | payer MEDICARE, OTHER, SELFPAY ==
--- NOTE | 2021-05-24 07:57 | NM_ITS ---
CLINICAL: 80-year-old female with history of abdominal pain. SEMI-SOLID PHASE 99m Tc SULFUR COLLOID GASTRIC EMPTYING STUDY COMPARISON: Previous semisolid phase Tc sulfur colloid gastric emptying study report 12/09/2015 FINDINGS: The patient was administered 1.1 mCi of 99m Tc sulfur colloid mixed with oatmeal and consumed per os. Image acquisitions in the anterior-posterior projections were obtained for a total of 60 minutes. There is prompt visualization of the stomach. There is no gastroesophageal reflux identified. First order kinetics are maintained throughout the duration of the acquisitions. The T ? linear fit was calculated-extrapolated to be 128.26 minutes, (Normal: 12-56 minutes). NM/Gastric Emptying Study IMPRESSION: 1. ABNORMAL 99m Tc sulfur colloid semi-solid phase (oatmeal) gastric emptying imaging examination. A. There is delayed semi-solid phase gastric emptying compared to normal controls with maintained first order kinetics throughout all components of the examination. (Paula et al, J Nucl Med Tech 38: 186, 2010). B. Overall compared to the previous semisolid phase gastric emptying study dated 12/09/2015, there is interim development of abnormal-delayed semisolid phase gastric emptying as defined above. Electronically Signed: Raoul Rios DO at 22:45 EST ,
[2021-05-24 08:16] LABS: Erythrocyte Sedimentation Rate 16 mm/hr (0-30)
[2021-05-24 08:39] LABS: Thyroid Stim Hormone (TSH) 2.72 uIU/mL (0.358-3.74)
[2021-05-25 17:08] LABS: Endomysial Antibody IgA Negative (Negative)
[2021-05-25 17:27] LABS: Immunoglobulin A 598 mg/dL (64-422); t-Transglutaminase IgA <2 U/mL (0-3)
[2021-05-27 09:08] LABS: H. PYLORI STOOL AG Negative (Negative)
[2021-05-27 14:03] LABS: Giardia Lamblia, Stool EIA Negative (Negative)
[2021-05-27 16:38] LABS: Calprotectin, Stool 44 ug/g (0-120)
== END 2021-05-24 23:59 | disposition short-term general hospital (02) ==
PROVIDERS: PCP Family Medicine; Referring Provider Internal Medicine Gastroenterology; Visit Provider Internal Medicine Gastroenterology
DX: E11.9 Type 2 diabetes mellitus without complications (principal); K31.84 Gastroparesis; R19.7 Diarrhea, unspecified; I10 Essential (primary) hypertension
CPT/HCPCS: 36415; 78264; 82784; 83516; 83630; 83993; 84443; 85652; 86140; 86255; 87329; 87493; 87506; A9541

== ENCOUNTER 2022-02-27 17:00 | Outpatient (RCR) | payer MEDICARE, OTHER, SELFPAY ==
--- NOTE | 2022-01-23 18:53 | HP.PTEVAL_ITS ---
Patient's Visit Information LAZARA SHANE is a 81 year old F referred to Physical Therapy by Dr. 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 Date of Evaluation: 01/23/22 Physical Therapist: Amelia Peters PT, Cert MDT - Visit Plan Frequency: 1x/Week Duration: 8-10 Plan: MANUAL PF THERAPY FOR STRENGTHENING, LENGTHENING/RELAXATION AND ENDURANCE TRAINING. URINARY RETENTION AND URGENCY EDUCATION IN BEHAVIORAL MODIFICATIONS. CONSIDER INTERNAL OR EXTERNAL PF BIOFEEDBACK WITH EQUIPMENT. TRAINING IN COORDINATION OF PELVIC FLOOR MUSCULATURE WITH CORE (TRANSVERSE ABDOMINUS) STRENGTHENING. TRAINING IN ABDOMINAL CAVITY PRESSURE MGMT WITH ADL'S TO DECREASE ANY URINARY LEAKING. GINNA LB AND HIP ROM/STRETCHING AND STRENGTHEING. - Subjective Work/Leisure: RETIRED. Present symptoms: PATIENT REPORTS SHE HAS HAD INCONTINENCE ALL OF HER ADULT LIFE BUT THIS TIME HAS BEEN DIFFERENT. SHE REPORTS SHE IS LEAKING MORE NOW. PATIENT REPORTS SHE HAD PAIN BEFORE DR. WATERMAN PRESCRIBED HER A CREAM AND NOW THE PAIN IS GONE. SHE REPORTS SHE CAN'T MAKE IT TO THE BATHROOM IN TIME. CHRONIC CONSTANT LOW BACK ACHE. INCREASED LBP WITH STANDING AND WALKING. Present since: ABOUT 6 MONTHS AGO SHE STARTED HAVING MORE LEAKING THAN USUAL. Pain Scale: NO PAIN. Commenced as a result of: NO APPARENT REASON. Worse: UNKNOWN. Better: UNKNOWN. Disturbed sleep: GETS UP TO URINATE AT LEAST 3 TIMES A NIGHT. Previous history/Previous treatment: PATIENT DENIES ANY PRIOR TREATMENT FOR INCONTINENCE. NO SURGERY. RECENT REFERRAL TO DR. WATERMAN FOR PAINFUL RASH BY DR. GAMBOA. Coughing/sneezi ng/straining: POSITIVE FOR LEAKING URINE. Gait: HAS BEEN WALKING WITH A CANE FOR YEARS. TWO FALLS (NO INJURIES AND FOR NO APPARENT REASON) ABOUT A YEAR AGO BUT NONE IN THE LAST FEW MONTHS. Bowel Dysfunction: SOME BOWEL INCONTINENCE OVER THE LAST FEW YEARS IF SHE HAS DIAHREA. ALTERNATES BETWEEN DIAHREA AND CONSTIPATION. UNDER THE CARE OF DR. DIXON ([employer] Supervisor) AND MUCH BETTER BOWEL CONTINENCE NOW THAN IN THE PAST. Unexplained weight loss: NO. PMH/Recent major surgery: IDDM, L EYE BLINDNESS, GINNA KNEE ARTHRITIS. R TKR. L WRIST FX WITH ORIF. R WRIST FX. OTHER: HAD FIRST PTNS (PERCUTANEUS TIBIAL NERVE STIMULATION TREATMENT 2 WKS AGO - UNEXPECTED DELAY IN TREATMENT BUT IS SUPPOSED TO GET IT ONCE A WK FOR 12 WKS). - Objective Sitting/Standing Posture: POOR. INCREASED KYPHOSIS. REDUCED LUMBAR LORDOSIS BUT NO RELEVENT LATERAL SHIFT. Active Correction of posture: INCREASES LBP AND ONLY ABLE TO PARTIALLY CORRECT. Other Observations: THIS PATIENT AMBULATES INDEP'LY INTO PT WITH A STRAIGHT CANE WITH DECREASED CADANCE BUT NO LOB. Sensory deficit: GINNA LE LIGHT TOUCH SENSATION IS GROSSLY INTACT AND SYMMETRICAL. ROM deficit: GINNA LE HS, HIP (ALL PLANES) AND GASTROC-SOLEUS COMPLEX TIGHTNESS. Motor deficit: GINNA LE'S GROSSLY 4/5 WITH MMT'ING EXCEPT DORSIFLEXORS 5/5. Dural Signs: Negative GINNA LE'S. Lumbar mvmt loss: flex - MIN. ext - ONUR. R SG - ONUR. L SG - ONUR. PATIENT DENIES INCREASED PAIN WITH LUMBAR ROM TESTING ALL PLANES. Core strength: POOR. Palpation: PATIENT HAS TENDERNESS IN GINNA LUMBAR PARASPINAL REGIONS WITH LIGHT PALAPTION. OTHER: PATIENT DEFERRED INTERNAL MANUAL PF EXAM TO NEXT VISIT. SHE REPORTS SHE KNOWS HOW TO DO A KEGEL EX AND TIGHTEN HER PELVIC FLOOR BUT THOSE EX'S HAVE NOT HELPED IN THE PAST. THIS PT RECOMMENDED INTERNAL TESTING AND SHE IS AGREEABLE FOR NEXT VISIT. - Goals Goal 1:: PATIENT WILL SUCCESSFULLY DELAY VOIDING FOR 20 MINUTES WHEN URGENCY OCCURS Goal Time Frame: 4-6 Weeks Goal 2:: DECREASE URINARY LEAKAGE EPISODES TO 2 OR LESS PER DAY Goal Time Frame: 6-8 Weeks Goal 3:: PATIENT WILL DEMONSTRATE 10 CONSISTENT AND CONSECUTIVE 10 SECOND PELVIC FLOOR MUSCLE CONTRACTIONS TO DEMONSTRATE IMPROVED PELVIC FLOOR ENDURANCE. Goal Time Frame: 6-8 Weeks Goal 4:: VOID FREQUENCEY EVERY 3-4 HOURS Goal Time Frame: 6-8 Weeks Goal 5:: FLUID INTAKE OF ? BODY WEIGHT IN OUNCES PER DAY WITH 2/3 BEING WATER. Goal Time Frame: 2-4 Weeks Goal 6:: PATIENT WILL BE INDEP WITH A HEP/HOME INSTRUCTIONS FOR CONTINUED IMPR OVEMENT ONCE FORMAL PHYSICAL THERAPY CONCLUDES. Goal Time Frame: 6-8 Weeks - Anticipated Interventions Patient/Client Instruction: Educate patient on: Condition, Plan of Care, Risk Factors For the Purpose of:: To improve self management Therapeutic Exercise to Include: Strength training, Endurance training, Coordination, Body mechanics, Postural training, Flexibilty training, Neuromotor development For the Purpose of:: To increase ROM, To improve muscle performance and motor function, To increase tolerance to activity/condition/position, To improve ability of physical actions for home/community/work/leisure Thank you for the opportunity to evaluate your patient. For Medicare and Medicare HMO plans, please review the plan of care and approve it. It will need to be FAXED BACK to us at [phone] for Medicare purposes. For Medicare only, by signing this I certify the plan of care. Please let me know if there are questions or concerns regarding this plan of care. Physician Signature: Date:
--- NOTE | 2022-03-13 13:46 | HP.PT.NRP ---
LAZARA SHANE was seen in my office for initial evaluation on 01/23/22. The following Plan of Care was established for this patient: Initial Frequency: 1x/Week Initial Duration: 8-10 Patient/Client Instruction: Educate patient on: Condition, Plan of Care, Risk Factors For the Purpose of:: To improve self management Therapeutic Exercise to Include: Strength training, Endurance training, Coordination, Body mechanics, Postural training, Flexibilty training, Neuromotor development For the Purpose of:: To increase ROM, To improve muscle performance and motor function, To increase tolerance to activity/condition/position, To improve ability of physical actions for home/community/work/leisure This patient was last seen in our office . Pertinent comments regarding their Physical therapy will appear below: PATIENT CANCELLED AND THIS PT CALLED AND SPOKE WITH PATIENT. SHE REPORTS SHE HAS A SORE THROAT. SHE REPORTS THE HOME EX'S ARE GOING WELL AND SHE WOULD LIKE TO CONTINUE THEM ON HER OWN AT THIS TIME FOR NOW. SHE REPORTS SHE REALLY ENJOYED COMING TO THERAPY BUT DOESN'T WANT TO COME OUT IN THE COLD AND AT NIGHT AND REALLY CAN'T COME ANY OTHER TIME. WILL D/C CHART AND RECOMMENDED PATIENT FOLLOW UP WITH HER DOCTOR NEEDED/PLANNED. PATIENT AGREEABLE. At this point I will be discontinuing this patient from physical therapy. I would be happy to see this patient again in the future if found appropriate by the physician. Thank you! Amelia Peters, PT, Cert MDT
== END 2022-02-27 19:00 | disposition home or self-care (01) ==
LOC: PT 17:00
PROVIDERS: PCP Family Medicine; Referring Provider Urology; Visit Provider Urology
DX: M99.05 Segmental and somatic dysfunction of pelvic region (principal); N39.41 Urge incontinence; R39.14 Feeling of incomplete bladder emptying
CPT/HCPCS: 97162; 97530

== ENCOUNTER 2022-03-22 08:15 | Emergency (ER) | payer MEDICARE, OTHER, SELFPAY ==
[2022-03-22 08:16] VITALS: BP 128/56; PULSE 72; RESP 18; TEMP 35.8; O2SAT 100; BMI 42.0
[2022-03-22 08:40] LABS: Bedside Glucose 85 mg/dL (74-106)
[2022-03-22 09:08] LABS: Anion Gap 4 (5-15); BUN 19 mg/dL (7-18); BUN/Creat Ratio 28.2 RATIO (10-20); Calcium,Total 9.5 mg/dL (8.5-10.1); Chloride 104 mmol/L (98-107); Creatinine, Serum 0.67 mg/dL (0.55-1.02); EST Glomerular Filtration Rate 89 mL/min (>60); Est Glom Filt Rate - Afr Amer 108 mL/min (>60); Estimated Creatinine Clearance 35.49 ml/min; Glucose 59 mg/dL (74-106); Potassium 3.3 mmol/L (3.5-5.1); Sodium Level 139 mmol/L (136-145)
[2022-03-22 09:26] LABS: Bedside Glucose 72 mg/dL (74-106)
--- NOTE | 2022-03-22 10:00 | EDS_ITS ---
HPI History of Present Illness Chief Complaint: Hypoglycemia Detail of Chief Complaint: Blood sugar 32 with change in mental status Informant: patient and family Onset/Context/Timing Onset: Hours Context: Sudden Onset Timing: Continuous Quality: Patient took insulin and did not eat Location: Home Current Severity: Mild Maximum Severity: Moderate Worsened by: Not eating Relieved by: Improved with food Associated Symptoms Associated Symptoms: Altered mental status, nausea, pallor Narrative Narrative: Patient is an 81-year-old woman who was instructed by her doctor to decrease her insulin to 10 units. She did not decrease her insulin. She continue to take 20 units. She took the insulin prior to eating. She apparently was going out to be with friends. She had altered mental status. Daughter checked blood sugar was 32. Presently she has no symptoms. Prior similar symptoms: Yes Recent Illness/Hospitalization: No [facility] Medical History Asthma Diabetes Diarrhea Gastroparesis Shortness of breath Unsteady gait Home Medications Cholecalciferol (Vitamin D3) [Vitamin D3] 5,000 unit PO DAILY supplement [History Last Taken 11/08/17 08:00] ascorbic acid (vitamin C) 500 mg capsule 500 mg PO DAILY supplement 11/08/17 [History Last Taken 11/07/17 20:00] brimonidine 0.15 % eye drops 1 drp BID damaged eye 11/08/17 [History Last Taken 11/08/17 08:00] calcium carbonate 600 mg calcium (1,500 mg) tablet 600 mg PO QHS supplement 11/08/17 [History Last Taken 11/07/17 20:00] cyanocobalamin (vitamin B-12) 500 mcg tablet 1 tab PO DAILY@0800 supplement 11/08/17 [History Last Taken 11/08/17 08:00] glimepiride 4 mg tablet 4 mg PO BID diabetes 11/08/17 [History Last Taken 11/08/17 08:00] insulin glargine 100 unit/mL subcutaneous solution (Lantus U-100 Insulin) 18 unit subcut QHS diabetes 11/08/17 [History Last Taken 11/07/17 20:00] losartan 50 mg tablet 75 mg PO DAILY blood pressure 11/08/17 [History Last Taken 11/08/17 08:00] magnesium oxide 400 mg PO QHS supplement 11/08/17 [History Last Taken 11/07/17 20:00] multivitamin (Daily Multiple tablet) 1 ea PO DAILY supplement 11/08/17 [History Last Taken 11/08/17 08:00] omega-3 fatty acids-fish oil 340 mg-1,000 mg capsule (Fish Oil) 1 ea PO DAILY supplement 11/08/17 [History Last Taken 11/08/17 08:00] omeprazole 20 mg capsule,delayed release 20 mg PO DAILY 11/08/17 [History Last Taken 11/08/17 08:00] pravastatin 10 mg tablet 10 mg PO QHS cholesterol 11/08/17 [History Last Taken 11/07/17 20:00] Saccharomyces boulardii 250 mg capsule (Daily Probiotic (S. boulardii)) 250 mg PO DAILY 11/30/20 [History Last Taken Unknown] insulin regular human 100 unit/mL injection solution 4 unit subcut 11/30/20 [History Last Taken Unknown] pioglitazone 45 mg tablet (Actos) 45 mg PO DAILY 10/27/21 [History Last Taken Unknown] Allergy/AdvReac Type Severity Reaction Status Date / Time levofloxacin [From Levaquin] Allergy Mild rash Verified 03/22/22 08:21 aspirin Allergy Rash Verified 03/22/22 08:21 codeine Allergy Rash Verified 03/22/22 08:21 NSAIDS (Non-Steroidal Allergy Rash Verified 03/22/22 08:21 Anti-Inflamma Penicillins Allergy Rash Verified 03/22/22 08:21 solifenacin [From Vesicare] Allergy Unknown Verified 03/22/22 08:21 Sulfa (Sulfonamide Allergy Rash Verified 03/22/22 08:21 Antibiotics) Family History Sister Breast cancer Mother CVA (cerebral vascular accident) Hypertension Father Diabetes Heart disease Surgical History History of colonoscopy History of hysterectomy History of knee replacement History of left inguinal hernia repair History of left inguinal hernia repair History of left inguinal hernia repair Social History (Updated 03/22/22 @ 10:[address] Semaj Bhatt MD) household members: family Smoking Status: Former smoker substance use type: does not use ROS ROS ED Constitutional Constitutional ED: Denies chills, fever(s), subjective or sweats Eyes Eyes: Denies blurry vision, change in vision or diplopia Cardiovascular Cardiovascular: Denies chest pain or palpitations Respiratory/Chest Respiratory/Chest: Denies cough or dyspnea Gastrointestinal Gastrointestinal: Reports nausea; Denies diarrhea or vomiting Genitourinary Genitourinary ED: Denies dysuria, hematuria or urinary frequency Endocrine Endocrinology: Denies polydipsia, polyphagia or polyuria EXAM Physical Exam Const Vital Signs: 03/22/22 08:16 03/22/22 08:32 Temperature 96.4 F L Temperature Source Temporal Pulse Rate 72 Respiratory Rate 18 Respiratory Effort Normal Non-Labored Respiratory Pattern Normal Blood Pressure 128/56 H Blood Pressure Mean 80 Pulse Ox 100 Oxygen Delivery Method Room Air Positive well nourished, well developed and obese General Appearance ED: well developed and NAD; Negative for cyanotic, diaphoretic or pallor Nutritional Appearance: obese HEENT Reports moist mucous membranes HEENT Narrative: Head is atraumatic no cephalic. Ears normal. Nares patent. Eyes PERRL and EOMs intact bilaterally General Eye ED: Negative for pale conjunctiva or scleral icterus Neck no lymphadenopathy, supple and no JVD Resp normal respiratory effort Cardio regular rate and regular rhythm Extremity normal to inspection Neuro oriented x3, CN's II-XII intact bilaterally and no sensory deficits noted Neuro Narrative: Gait observed and normal. Sensorium / Orientation: alert Motor Exam: strength 5/5 throughout Skin no rashes or lesions noted, no wounds and skin turgor normal General Skin Exam: Negative for jaundice or pallor MDM MDM MDM Narrative Medical decision making narrative: Hypoglycemia due to lack of caloric intake after taking insulin. Furthermore she has been having problems with low blood sugar and was instructed by her doctor to half the dose of her insulin. Since patient is reluctant to decrease by 10 units she was instructed to take 15 units in the morning instead of 20. She was agreeable with this. Lab Data Labs: Laboratory Results - last 24 hr 03/22/22 03/22/22 03/22/22 08:18 08:45 09:08 Sodium 139 Potassium 3.3 L Chloride 104 Carbon Dioxide 31.0 Anion Gap 4 L BUN 19 H Creatinine 0.67 Estim Creat Clear Calc 35.49 Est GFR (MDRD) Af Amer 108 Est GFR (MDRD) Non-Af 89 BUN/Creatinine Ratio 28.2 H Glucose 59 L Calcium 9.5 POC Glucose 85 72 L Treatment and Re-Evaluation Narrative: Patient was reassessed after eating a meal in the department. She feels better. Plan is discharge to home Discharge Plan Triage Chief Complaint: Hypoglycemia ED Provider: Semaj Bhatt Dx/Rx/DC Orders Clinical Impression: Acute alteration in mental status, Hypoglycemia due to insulin Instructions: ED Diabetic Insulin Reaction Prescriptions: No Action Novolin R Regular U-100 Insuln 100 unit/mL solution 4 unit subcut Label Comments: INJECT 4 UNITS SUBCUTANEOUSLY ONCE DAILY WITH THE LARGEST MEAL Saccharomyces boulardii [Daily Probiotic (S. boulardii)] 250 mg capsule 250 mg PO DAILY pioglitazone [Actos] 45 mg tablet 45 mg PO DAILY multivitamin [Daily Multiple] 1 EACH tablet 1 ea PO DAILY losartan 50 MG tablet 75 mg PO DAILY insulin glargine [Lantus U-100 Insulin] 100 UNIT/ML solution 18 unit subcut QHS Label Comments: 25 with taking steroid calcium carbonate 600 MG tablet 600 mg PO QHS pravastatin 10 MG tablet 10 mg PO QHS cyanocobalamin (vitamin B-12) 500 MCG tablet 1 tab PO DAILY@0800 glimepiride 4 MG tablet 4 mg PO BID omeprazole 20 MG capsule,delayed release(DR/EC) 20 mg PO DAILY brimonidine 1 DROP bottle 1 drp Left Eye BID omega-3 fatty acids-fish oil [Fish Oil] 1 EACH capsule 1 ea PO DAILY ascorbic acid (vitamin C) 500 MG capsule 500 mg PO DAILY magnesium oxide 400 MG tablet 400 mg PO QHS Cholecalciferol (Vitamin D3) [Vitamin D3] 5,000 UNIT capsule 5,000 unit PO DAILY Primary Care Provider: Marilee Jiang Referrals: Marilee Jiang DO [Primary Care Provider] - [facility] appointment Activity Restrictions/Additional Instructions: Recommend decreasing insulin from 20 units in the morning to 15 units. Disposition Disposition: Home, Self Care
[2022-03-22 10:05] LABS: Bedside Glucose 107 mg/dL (74-106)
[2022-03-22 10:47] VITALS: BP 143/54; PULSE 87; RESP 22; O2SAT 100
== END 2022-03-22 10:47 | disposition home or self-care (01) ==
PROVIDERS: Emergency Provider Emergency Medicine; PCP Family Medicine; Visit Provider Emergency Medicine
DX: E11.649 Type 2 diabetes mellitus with 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 (principal); E11.43 Type 2 diabetes mellitus with diabetic autonomic (poly)neuropathy; Z79.4 Long term (current) use of insulin; R41.82 Altered mental status, unspecified; R11.0 Nausea; J45.909 Unspecified asthma, uncomplicated; E66.9 Obesity, unspecified; Z87.891 Personal history of nicotine dependence; K31.84 Gastroparesis
CPT/HCPCS: 80048; 82962; 99283; A4216

== ENCOUNTER → 2022-03-30 | Outpatient (CLI) | payer MEDICARE, OTHER, SELFPAY ==
--- NOTE | 2022-03-30 16:16 | BI_ITS ---
MAMMOGRAPHY - BILATERAL SCREENING REASON FOR EXAM: Female, 81 years old. Routine annual screening examination. PERTINENT HISTORY: Sister with breast cancer. TECHNIQUE: Digital bilateral breast dionicio (3D mammographic acquisition) in the CC and MLO projections. 2-D mediolateral oblique (MLO) and craniocaudad (CC) views of both breasts were obtained. CAD: Full Field Digital Mammography with Computer Added Detection was performed. COMPARISON: Comparison is made with prior study 03/21/2021 and 02/24/2020. FINDINGS: Breast Composition: There are scattered areas of fibroglandular density. There are no dominant masses or suspicious calcifications. Stable 5.4 mm x 7 mm well-defined nodule in the anterior lateral upper aspect of the left breast. No other significant abnormalities are identified. There has been no significant change since the prior study. BI/SCRN MAMM (CAD)W/DIONICIO BILAT IMPRESSION: Stable bilateral screening mammogram. Yearly follow-up mammogram recommended. (A) ASSESSMENT CATEGORY: BIRADS Category 2: Benign. A letter regarding these results will be sent to the patient by the facility within 30 days. Approximately 10% of breast cancers are not detected by mammography. A normal mammogram should not delay biopsy of a clinically suspicious abnormality. [id number] Electronically Signed: Brenton Dodge MD at 8:33 EST ,
== END | disposition home or self-care (01) ==
LOC: OPBI 16:09
PROVIDERS: PCP Family Medicine; Visit Provider Family Medicine
DX: Z12.31 Encounter for screening mammogram for malignant neoplasm of breast (principal); N63.20 Unspecified lump in the left breast, unspecified quadrant; Z80.3 Family history of malignant neoplasm of breast
CPT/HCPCS: 77063; 77067

== ENCOUNTER → 2022-04-20 | Outpatient (CLI) | payer MEDICARE, OTHER, SELFPAY ==
[2022-04-20 17:51] LABS: Absolute Lymphocyte Count 2.08 X10^3/uL (0.83-4.51); Absolute Neutrophil Count 11.8 X10^3/uL (2.0-7.7); Basophil# 0.04 X10^3/uL; Basophil% 0.3 % (0-1); Eosinophil# 0.01 X10^3/uL; Eosinophils% 0.1 % (0-5); Hematocrit 43.6 % (37-47); Hemoglobin 14.7 g/dL (12.0-15.0); Lymphocyte # 2.08 X10^3/ul (0.83-4.51); Lymphocyte % 14.1 % (19-41); Mean Corp Hgb Conc 33.7 g/dL (32-36); Mean Corpuscular Hgb 29.2 pg (27.0-32.0); Mean Corpuscular Volume 86.5 fL (81-99); Mean Platelet Vol. 9.1 fl (6.2-12.0); Monocyte# 0.79 X10^3/uL; Monocyte% 5.3 % (0-10); NRBC Flagged by Analyzer 0 % (0-5); Neutrophil # 11.78 X10^3/uL (2.7-7.7); Neutrophil % 79.6 % (47-70); Platelet Count 408 K/mm3 (150-450); RBC Distribution Width CV 14.6 % (11.6-14.6); RBC Distribution Width SD 46.4 fl (35.1-43.9); Red Blood Count 5.04 M/mm3 (4.2-5.4); White Blood Count 14.8 K/mm3 (4.4-11.0)
[2022-04-20 18:09] LABS: ALB/GLOB Ratio 0.7 RATIO (0.9-2.4); AST(SGOT) 17 U/L (15-37); Alanine Aminotransfer ALT/SGPT 27 U/L (13-56); Albumin, Serum 3.4 g/dL (3.2-5.0); Alkaline Phosphatase 57 U/L (45-117); Anion Gap 3 (5-15); BUN 16 mg/dL (7-18); BUN/Creat Ratio 20.7 RATIO (10-20); Calcium,Total 9.7 mg/dL (8.5-10.1); Chloride 99 mmol/L (98-107); Creatinine, Serum 0.77 mg/dL (0.55-1.02); EST Glomerular Filtration Rate 76 mL/min (>60); Est Glom Filt Rate - Afr Amer 92 mL/min (>60); Globulin 5.2 g/dL (2.2-4.2); Glucose 248 mg/dL (74-106); Lipase 89 U/L (73-393); Potassium 4.3 mmol/L (3.5-5.1); Protein, Total 8.6 g/dL (6.4-8.2); Sodium Level 134 mmol/L (136-145)
== END | disposition home or self-care (01) ==
LOC: BFHLAB 14:35
PROVIDERS: PCP Family Medicine; Visit Provider Family Medicine
DX: R10.9 Unspecified abdominal pain (principal); R11.10 Vomiting, unspecified
CPT/HCPCS: 36415; 80053; 83690; 85025

== ENCOUNTER → 2022-04-25 | Outpatient (CLI) | payer MEDICARE, OTHER, SELFPAY ==
--- NOTE | 2022-04-25 11:02 | RAD_ITS ---
STUDY: X-RAY CHEST REASON FOR EXAM: Female, 81 years old. Cough. TECHNIQUE: Frontal and lateral views of the chest. COMPARISON: November 08, 2017. FINDINGS: The lungs are clear and expanded. Stable healed granulomatous calcifications. There is no demonstrated pleural abnormality. Cardiomegaly unchanged. Normal mediastinum and lucio. Normal visualized pulmonary arteries. Stable aortic tortuosity with calcification. Diffuse mild thoracic spondylosis unchanged. Normal visualized ribs, clavicles, and shoulders. There is no demonstrated abnormality of the visualized soft tissue structures of the upper abdomen. RAD/Chest PA and Lateral IMPRESSION: Stable chest with no acute or active cardiopulmonary disease. Electronically Signed: Alcon Hi, at 11:55 EST ,
== END | disposition home or self-care (01) ==
PROVIDERS: PCP Family Medicine; Referring Provider Family Medicine; Visit Provider Family Medicine
DX: R05.9 Cough, unspecified (principal)
CPT/HCPCS: 71046

== ENCOUNTER → 2022-09-25 | Outpatient (CLI) | payer MEDICARE, SELFPAY ==
[2022-09-25 18:11] LABS: ALB/GLOB Ratio 0.6 RATIO (0.9-2.4); AST(SGOT) 24 U/L (15-37); Alanine Aminotransfer ALT/SGPT 24 U/L (13-56); Albumin, Serum 3.5 g/dL (3.2-5.0); Alkaline Phosphatase 68 U/L (45-117); Anion Gap 1 (5-15); BUN 15 mg/dL (7-18); BUN/Creat Ratio 13.9 RATIO (10-20); Calcium,Total 9.1 mg/dL (8.5-10.1); Chloride 106 mmol/L (98-107); Creatinine, Serum 1.08 mg/dL (0.55-1.02); EST Glomerular Filtration Rate 52 mL/min (>60); Est Glom Filt Rate - Afr Amer 63 mL/min (>60); Globulin 5.6 g/dL (2.2-4.2); Glucose 86 mg/dL (74-106); Potassium 4.3 mmol/L (3.5-5.1); Protein, Total 9.1 g/dL (6.4-8.2); Sodium Level 138 mmol/L (136-145)
== END | disposition home or self-care (01) ==
LOC: BFHLAB 14:02
PROVIDERS: PCP Family Medicine; Referring Provider Family Medicine; Visit Provider Family Medicine
DX: Z51.81 Encounter for therapeutic drug level monitoring (principal)
CPT/HCPCS: 36415; 80053

== ENCOUNTER 2022-10-30 11:30 | Outpatient (RCR) | payer MEDICARE, OTHER, SELFPAY ==
--- NOTE | 2022-10-20 17:01 | HP.PTREVAL ---
Re-Evaluation Intro: Dr. Pritesh Black MD, It has been my pleasure to treat LAZARA SHANE over the last 1 visits for L knee OA, presence of R TKA~ 20 years ago. Please see the progress note below for an update on the physical therapy plan of care! Plan Plan Plan: Start with B knee ROM and B LE strengthening in aquatic setting. Pt. is not a swimmer and is legally blind. Balance/Gait/Functional tests Balance/Special Test Scores Lower Extremity Functional Score: 11 Goals Goals Goal 1:: LTG: Pt. to be I with HEP. Goal Time Frame: 4-6 Weeks Goal 2:: STG: Pt. to ambulate throughout the home with 2-3/10 pain in B knees. Goal Time Frame: 2-4 Weeks Goal 3:: LTG: Pt. to have increased ROM of B knees to 0-0-120deg. Goal Time Frame: 4-6 Weeks Goal 4:: LTG: Pt. to have increased BLE strength to 5/5 throughout. Goal Time Frame: 4-6 Weeks Goal 5:: LTG: Pt. to be able to walk with SPC in community with 2-3/10 pain in B knees. Goal Time Frame: 4-6 Weeks Anticipated Interventions Anticipated Interventions Patient/Client Instruction: Educate patient on: Condition, Plan of Care, Risk Factors and Benefits of Fitness Program For the Purpose of:: To facilitate caregiver knowledge, To improve self management, To prevent re-injury, To improve ability to perform tasks related to life management and To improve tolerance to ADL's Therapeutic Exercise to Include: Strength training, Power training, Endurance training, Balance training, Postural training, Flexibilty training, Gait and locomotor training, In an aquatic setting, Passive ROM and Active ROM For the Purpose of:: To decrease pain, To increase ROM, To improve nutrient delivery to tissue, To increase oxygenation perfusion, To improve muscle performance and motor function, To improve ability to perform ADL's, To increase tolerance to activity/condition/position, To improve gait and locomotor functions, To improve health of tissue, To decrease soft tissue restriction and To increase flexibility/ROM Re-Evaluation Ending Re-evaluation ending: Please do not hesitate to contact me at [phone] by phone or if you have questions or concerns regarding this new plan of care! Sincerely, Thomas Dominique DPT
--- NOTE | 2022-10-23 08:57 | HP.PTEVAL_ITS ---
Patient's Visit Information Visit Information Visit Information: LAZARA SHANE is a 82 year old F referred to Physical Therapy by Dr. Pritesh Black MD with a diagnosis of L knee OA, presence of R TKA~ 20 years ago. Date of Evaluation: 10/20/22 Physical Therapist: Thomas Dominique DPT Visit Plan Frequency: 2x /Week Duration: 6 Weeks Plan: Start with B knee ROM and B LE strengthening in aquatic setting. Pt. is not a swimmer and is legally blind. Subjective Subjective: Pt. is here today for her initial evaluation with diagnosis of presence of L knee OA. She has a history of R knee TKA ~20 years ago. Pt. reports continued R knee pain, but also her L. Pt. met with ortho who would like to replace her L in attempt to reduce the stress on both knees. Tentative surgery in early Jan. Pt. reports she has to lose some wt. by then, but also to manage her DMII better. Pain L knee: Pain Intensity (Out of 10): 5 Pain Intensity Range: 2 and 8 R knee: Pain Intensity (Out of 10): 7 Pain Intensity Range: 4 and 9 Objective Objective: POSTURE: PT. has fwrd flexed posture, increased L knee valgus. Slight increase in R varus, but slightly. PALPATION: Pt. has mild medial and lateral joint line. NEURO: Pt. has normal DTR, slight reduction in light touch throughout BLEs. Pt. is able to rise on heels and toes with balance aide. ROM: R knee: 0-5-89deg, L knee: 0-2-110deg. Pt. has tight B HS and hip flexors. MMT: RLE: ankle 5/5 throughout; knee: ext 4/5, flexion 4/5, (both increase NW pain); hip: flexion 4/5, abd 4/5. LLE: ankle 5/5 throughout; knee: ext 4/5, flexion 4/5; hip: flexion 4/5, abd 4/5, Core strength- poor. GAIT: pt. ambulates with single point cane. Pt. is legally blind resulting in guarded posture. Pt. has decreased step length and increased lateral sway with gait. Balance/Special Test Scores Lower Extremity Functional Score: 11 Goals Goal 1:: LTG: Pt. to be I with HEP. Goal Time Frame: 4-6 Weeks Goal 2:: STG: Pt. to ambulate throughout the home with 2-3/10 pain in B knees. Goal Time Frame: 2-4 Weeks Goal 3:: LTG: Pt. to have increased ROM of B knees to 0-0-120deg. Goal Time Frame: 4-6 Weeks Goal 4:: LTG: Pt. to have increased BLE strength to 5/5 throughout. Goal Time Frame: 4-6 Weeks Goal 5:: LTG: Pt. to be able to walk with SPC in community with 2-3/10 pain in B knees. Goal Time Frame: 4-6 Weeks Rehabilitation Potential Physical Therapy Diagnosis: Pt. has signs and symptoms consistent with L knee OA and has a history of R TKA ~20 years ago. Pt. is still having issues in both knees. Pt. has marked hypomobility, weakness and difficulty with gait. Pt. would benefit from PT to address the above limitations progressing back to all household activities without limitations. Rehabilitation Potential: Good Anticipated Interventions Patient/Client Instruction: Educate patient on: Condition, Plan of Care, Risk Factors and Benefits of Fitness Program For the Purpose of:: To facilitate caregiver knowledge, To improve self management, To prevent re-injury, To improve ability to perform tasks related to life management and To improve tolerance to ADL's Therapeutic Exercise to Include: Strength training, Power training, Endurance training, Balance training, Postural training, Flexibilty training, Gait and locomotor training, In an aquatic setting, Passive ROM and Active ROM For the Purpose of:: To decrease pain, To increase ROM, To improve nutrient delivery to tissue, To increase oxygenation perfusion, To improve muscle performance and motor function, To improve ability to perform ADL's, To increase tolerance to activity/condition/position, To improve gait and locomotor functions, To improve health of tissue, To decrease soft tissue restriction and To increase flexibility/ROM Text: Thank you for the opportunity to evaluate your patient. For Medicare and Medicare HMO plans, please review the plan of care and approve it. It will need to be FAXED BACK to us at [phone] for Medicare purposes. For Medicare only, by signing this I certify the plan of care. Please let me know if there are questions or concerns regarding this plan of care. Physician Signature: Date:
== END 2022-10-30 19:00 | disposition home or self-care (01) ==
LOC: PT 11:30
PROVIDERS: PCP Family Medicine; Referring Provider Specialist; Visit Provider Specialist
DX: M17.12 Unilateral primary osteoarthritis, left knee (principal); E66.01 Morbid (severe) obesity due to excess calories; Z96.651 Presence of right artificial knee joint
CPT/HCPCS: 97113; 97161

== ENCOUNTER 2022-10-31 08:48 | Outpatient (RCR) | payer MEDICARE, OTHER, SELFPAY | END 2022-11-20 23:59 | LOC: DC 08:48 | PROVIDERS: PCP Family Medicine; Referring Provider Specialist; Visit Provider Specialist | DX: E11.9 Type 2 diabetes mellitus without complications (principal); I10 Essential (primary) hypertension; Z71.3 Dietary counseling and surveillance | CPT/HCPCS: 97802 ==

== ENCOUNTER → 2022-11-01 | Outpatient (CLI) | payer MEDICARE, OTHER, SELFPAY ==
[2022-11-01 17:58] LABS: Absolute Lymphocyte Count 3.45 X10^3/uL (0.83-4.51); Absolute Neutrophil Count 6.8 X10^3/uL (2.0-7.7); Basophil# 0.06 X10^3/uL; Basophil% 0.5 % (0-1); Eosinophil# 0.12 X10^3/uL; Eosinophils% 1.1 % (0-5); Hematocrit 39.4 % (37-47); Hemoglobin 12.4 g/dL (12.0-15.0); Lymphocyte # 3.45 X10^3/ul (0.83-4.51); Lymphocyte % 30.9 % (19-41); Mean Corp Hgb Conc 31.5 g/dL (32-36); Mean Corpuscular Hgb 28.4 pg (27.0-32.0); Mean Corpuscular Volume 90.4 fL (81-99); Mean Platelet Vol. 9.3 fl (6.2-12.0); Monocyte# 0.66 X10^3/uL; Monocyte% 5.9 % (0-10); NRBC Flagged by Analyzer 0 % (0-5); Neutrophil % 61.1 % (47-70); Platelet Count 324 K/mm3 (150-450); RBC Distribution Width CV 15.1 % (11.6-14.6); RBC Distribution Width SD 50.5 fl (35.1-43.9); Red Blood Count 4.36 M/mm3 (4.2-5.4); White Blood Count 11.2 K/mm3 (4.4-11.0)
[2022-11-01 18:15] LABS: Erythrocyte Sedimentation Rate 23 mm/hr (0-30)
== END | disposition home or self-care (01) ==
LOC: MTLAB 14:54
PROVIDERS: PCP Family Medicine; Referring Provider Physician Assistant; Visit Provider Physician Assistant
DX: Z96.651 Presence of right artificial knee joint (principal)
CPT/HCPCS: 36415; 85025; 85652; 86140

== ENCOUNTER 2022-11-29 12:49 | Outpatient (RCR) | payer MEDICARE, OTHER, SELFPAY | END 2022-12-21 23:59 | LOC: NS 12:49 | PROVIDERS: PCP Family Medicine; Referring Provider Specialist; Visit Provider Specialist | DX: Z71.3 Dietary counseling and surveillance (principal); E11.9 Type 2 diabetes mellitus without complications; I10 Essential (primary) hypertension | CPT/HCPCS: 97803 ==

== ENCOUNTER 2023-01-01 12:57 | Outpatient (RCR) | payer MEDICARE, OTHER, SELFPAY | END 2023-01-20 23:59 | LOC: NS 12:57 | PROVIDERS: PCP Family Medicine; Referring Provider Specialist; Visit Provider Specialist | DX: Z71.3 Dietary counseling and surveillance (principal); E11.9 Type 2 diabetes mellitus without complications; I10 Essential (primary) hypertension | CPT/HCPCS: 97803 ==

== ENCOUNTER → 2023-01-18 | Outpatient (CLI) | payer MEDICARE, OTHER, SELFPAY | END | disposition home or self-care (01) | PROVIDERS: PCP Family Medicine; Visit Provider Family Medicine | DX: R30.0 Dysuria (principal) | CPT/HCPCS: 87077; 87086; 87088; 87186 ==

== ENCOUNTER 2023-03-30 15:25 | Day surgery (SDC) | payer MEDICARE, OTHER, SELFPAY ==
--- OUTSIDE RECORDS SUMMARY | 2023-03-30 15:44 | XMS RPT_ITS | CCD ---
Author Name Unknown Address [address] [place] [id number] Organization [facility] Results Test Name Value Interpretation Reference Range Facil ity Progress note 11-02-2020 Note Date & Type Note Facility 11-02-2020 Note HNO ID: [id number] Author: Socorro Shine, Service: ? Author Type: Physician Type: Progress Notes Filed: 11/02/2020 4:20 PM Note Text: This office note has been dictated. Socorro Shine DO [facility] Progress note 11-02-2020 Note Date & Type Note Facility 11-02-2020 Note HNO ID: [id number] Author: Socorro Shine DO Service: Vascular Surgery Author Type: Physician Type: Progress Notes Filed: 11/08/2020 9:50 AM Note Text: NAME: LAZARA SHANE CLINIC NO: [id number] DATE OF SERVICE: 11/02/2020 Subjective: Mrs. Shane is here to follow up on bilateral lower extremity varicose veins. She describes a bilateral pinching feeling in her legs. No significant swelling. She does complain of some right knee discomfort, however, this is also the location of the most prominent varicose veins. Objective: Her vital signs are stable. She is in no distress. She has large right lower extremity varicose veins. Reviewed her venous reflux testing and she has deep vein reflux bilaterally as well as right GSV reflux. Assessment/Plan: Symptomatic varicose veins. Mrs. Shane may benefit from a endovenous laser ablation. We are going to try thigh-high compression stockings. She has worn knee-high compression stockings, however, now they are difficult to don. We discussed the use of a Jobst sock-donning device in helping with the assistance of donning. She will follow up with me in six months. At that time, we will assess if she may benefit from a right leg EVLT. She is agreeable with this plan. Socorro Shine D.O. KB/089 Audio #: [id number] Date Dictated: 11/02/2020 14:36:42 Date Typed: 11/06/2020 09:07:23 Date Revised: [facility] Progress note 07-20-2020 Note Date & Type Note Facility 07-20-2020 Note HNO ID: [id number] Author: Socorro Shine Service: ? Author Type: Physician Type: Progress Notes Filed: 08/09/2020 10:34 AM Note Text: VASCULAR SURGERY INITIAL CONSULT SERVICE DATE: 07/20/2020 SERVICE TIME: 8:21 AM PRIMARY CARE PHYSICIAN: Alok Díaz MD REFERRING PROVIDER: SELF Consult requested for an opinion regarding the evaluation and treatment of the above. My final impression and recommendations will be communicated back to the requesting physician by way of the shared medical record or letter via US mail. CHIEF COMPLAINT/HISTORY OF PRESENT ILLNESS: Chief Complaint: Patient presents with: New Patient Evaluation: Bilateral Varicose Veins History of Present Illness: Patient is a 80 year old White female presenting for consultation, evaluation and possible treatment of varicose veins, leg edema and leg pain. Patient reports bilateral pruritis and edema. Predisposing factors include not significant. No specific history of injury or prior problems. Relieving factors include support hose, elevation of legs, reduced activity and OTC pain medication with mild improvement in symptoms. Patient denies DVT, phlebitis and treatment with blood thinners. She has tried compression however due to difficulty with donning stockings she does not wear them. Was evaluated in the past in [place] for her varicose veins however did not have treatment Pain Assessment: PAIN EVALUATION 07/20/2020 0815 Pain Level: 7 Pain Location: ? Both legs Frequency: Continuous @OBHISTORIG( error)@ Duration of Symptoms: Progressive PREVIOUS TESTS: None CARDIOVASCULAR RISK FACTORS: None PAST MEDICAL/SURGICAL/FAMILY/SOCIAL HISTORY PAST MEDICAL HISTORY Diagnosis Date - Incisional hernia - Other specified disorder of gallbladder - Type II or unspecified type diabetes mellitus without mention of complication, uncontrolled - Unspecified essential hypertension - Unspecified inflammatory polyarthropathy PAST SURGICAL HISTORY Procedure Laterality Date - KNEE SCOPE,DIAGNOSTIC 1989 Arthroscopy, knee, right - LAP CHOLECYSTECT/CHOLANGIOGRAPHY 04/08/08 - PAST SURGICAL HISTORY OF hernia x2 - PAST SURGICAL HISTORY OF laser right surgery - REPAIR INCIS HERNIA W MESH 11/15/2009 - REPAIR INCISIONAL HERNIA,REDUCIBLE 11/15/2009 - REPAIR OF RECTOCELE 2003 - SLING OPER STRES INCONTINENCE - SUPRACERV ABD HYSTERECTOMY 1979 - TOTAL KNEE REPLACEMENT Knee replacement, total, right FAMILY HISTORY Problem Relation Age of Onset - Allergies Sister - Coronary Artery Disease Mother - Coronary Artery Disease Father - Hypertension Mother - Diabetes Father - Diabetes Paternal Grandmother SOCIAL HISTORY Social History Tobacco Use - Smoking status: Former Smoker - Smokeless tobacco: Never Used Substance Use Topics - Alcohol use: No - Drug use: No MEDICATIONS/ALLERGIES Current Outpatient Medications Medication Sig Dispense Refill - glimepiride (AMARYL) 4 mg tablet Take 4 mg by mouth twice daily with meals. - metFORMIN (GLUCOPHAGE) 500 mg tablet Take 500 mg by mouth daily with breakfast. - insulin NPH hum/reg insulin hm (NOVOLIN 70/30 SUBCUTANEOUS) Inject subcutaneously. - famotidine(PEPCID 20 MG TAB) Take one(1) tablet daily. 0 0 - brimonidine tartrate(ALPHAGAN P 0.1 % EYE DROPS) two drops in left eye daily. 0 0 - pravastatin sodium(PRAVACHOL 10 MG TAB) Takes one tab daily. 0 0 - cholecalciferol(VITAMIN D-3 1,000 UNIT CHEWABLE TAB) Takes two tabs daily. 0 0 - omega-3 fatty acids/vitamin e(FISH OIL 1,000 MG CAP) Takes two tabs daily. 0 0 - insulin glargine,hum.rec.anlog(LANTUS 100 UNIT/ML SUB-Q) takes 20 units at bedtime. 0 0 - valsartan(DIOVAN 80 MG TAB) one tablet daily 0 - multivitamins(DAILY VITAMIN TAB) Take one(1) tablet daily. 0 - hydrocodone bit/acetaminophen(VICODIN 5 MG-500 MG TAB) Take 1-2 tablet's) every four (4) to six(6) hours as needed for pain. 30 0 - oxybutynin chloride(DITROPAN XL 10 MG 24 HR TAB) Takes one tab daily. 0 0 - pioglitazone hcl(ACTOS 15 MG TAB) Take one(1) tablet daily. 0 0 - fluticasone/salmeterol(ADVAIR DISKUS 100 MCG-50 MCG/DOSE FOR INHALATION) Take one(1) inhalation twice daily; rinse and gargle mouth with water after each use. 0 0 - pioglitazone hcl(ACTOS 45 MG TAB) one tablet daily 0 No current facility-administered medications for this visit. ALLERGIES Allergen Reactions - Adhesive Tape (Radha* - Aspirin - Iodine Itching - Latex - Penicillins - Percocet [Oxycodone* Itching REVIEW OF SYSTEMS Constitutional: No weight loss, malaise or fevers. HEENT: Negative for frequent or significant headaches Respiratory: Negative for cough, wheezing, or shortness of breath Cardiovascular: Negative for chest pain, leg swelling or palpitations Gatrointestinal: Negative for abdominal discomfort, blood in stools or black stools or change in bowel habits Genitourinary: No history of dysuria, frequency, or in (more content not included)... [facility] Summary Purpose Family History No Family History Records Found Advance Directives No Advanced Directives Records Found Additional Source Comments INFORMATION SOURCE (unrecogn ized section and content) FOR RECORDS PERTAINING TO PATIENTS WHO ARE OR HAVE BEEN ENROLLED IN A CHEMICAL DEPENDENCY/SUBSTANCEABUSE PROGRAM, SOME INFORMATION MAY BE OMITTED. This clinical summary was aggregated from multiple sources. Caution should be exercised in using it in the provision of clinical care. This summary normalizes information from multiple sources, and as a consequence, information in this document may materially change the coding, format and clinical context of patient data. In addition, data may be omitted in some cases. CLINICAL DECISIONS SHOULD BE BASED ON THE PRIMARY CLINICAL RECORDS. [employer] [facility]. provides no warranty or guarantee of the accuracy or completeness of information in this document.
== END 2023-03-30 23:59 | disposition home or self-care (01) ==
LOC: PAT 15:28
PROVIDERS: PCP Family Medicine; Referring Provider Specialist; Visit Provider Specialist
DX: Z01.818 Encounter for other preprocedural examination (principal); E11.9 Type 2 diabetes mellitus without complications; M17.12 Unilateral primary osteoarthritis, left knee; I10 Essential (primary) hypertension

== ENCOUNTER → 2023-04-03 | Outpatient (CLI) | payer MEDICARE, OTHER, SELFPAY ==
--- NOTE | 2023-04-03 15:33 | BI_ITS ---
MAMMOGRAPHY - BILATERAL SCREENING REASON FOR EXAM: Female, 82 years old. Routine annual screening examination. PERTINENT HISTORY: Sister with breast cancer. TECHNIQUE: Digital bilateral breast dionicio (3D mammographic acquisition) in the CC and MLO projections. 2-D mediolateral oblique (MLO) and craniocaudad (CC) views of both breasts were obtained. CAD: Full Field Digital Mammography with Computer Added Detection was performed. COMPARISON: Comparison is made with prior study dated March 30, 2022 and March 21, 2021. FINDINGS: Breast Composition: There are scattered areas of fibroglandular density. There are no dominant masses or suspicious calcifications. Stable 7.8 mm well-defined nodule in the anterior lateral upper aspect of the left breast. This was demonstrated to be a cyst on prior sonogram. No other significant abnormalities are identified. There has been no significant change since the prior study. BI/SCRN MAMM (CAD)W/DIONICIO BILAT IMPRESSION: Stable bilateral screening mammogram. Yearly follow-up mammogram recommended. (A) ASSESSMENT CATEGORY: BIRADS Category 2: Benign. A letter regarding these results will be sent to the patient by the facility within 30 days. Approximately 10% of breast cancers are not detected by mammography. A normal mammogram should not delay biopsy of a clinically suspicious abnormality. [id number] Electronically Signed: Brenton Dodge MD at 9:14 EST ,
== END | disposition home or self-care (01) ==
LOC: OPBI 15:32
PROVIDERS: PCP Family Medicine; Referring Provider Family Medicine; Visit Provider Family Medicine
DX: Z12.31 Encounter for screening mammogram for malignant neoplasm of breast (principal); Z80.3 Family history of malignant neoplasm of breast
CPT/HCPCS: 77063; 77067

== ENCOUNTER → 2023-04-20 | Outpatient (CLI) | payer MEDICARE, OTHER, SELFPAY ==
[2023-04-20 12:30] LABS: Absolute Lymphocyte Count 2.37 X10^3/uL (0.83-4.51); Absolute Neutrophil Count 4.4 X10^3/uL (2.0-7.7); Basophil# 0.05 X10^3/uL; Basophil% 0.7 % (0-1); Eosinophil# 0.15 X10^3/uL; Hematocrit 40.8 % (37-47); Hemoglobin 12.6 g/dL (12.0-15.0); Lymphocyte # 2.37 X10^3/ul (0.83-4.51); Lymphocyte % 31.6 % (19-41); Mean Corp Hgb Conc 30.9 g/dL (32-36); Mean Corpuscular Hgb 27.5 pg (27.0-32.0); Mean Corpuscular Volume 89.1 fL (81-99); Mean Platelet Vol. 9.3 fl (6.2-12.0); Monocyte# 0.47 X10^3/uL; Monocyte% 6.3 % (0-10); NRBC Flagged by Analyzer 0 % (0-5); Neutrophil # 4.43 X10^3/uL (2.7-7.7); Neutrophil % 58.9 % (47-70); Platelet Count 329 K/mm3 (150-450); RBC Distribution Width CV 15.2 % (11.6-14.6); Red Blood Count 4.58 M/mm3 (4.2-5.4); White Blood Count 7.5 K/mm3 (4.4-11.0)
[2023-04-20 12:49] LABS: ALB/GLOB Ratio 0.7 RATIO (0.9-2.4); AST(SGOT) 13 U/L (15-37); Alanine Aminotransfer ALT/SGPT 20 U/L (13-56); Albumin, Serum 3.3 g/dL (3.2-5.0); Alkaline Phosphatase 58 U/L (45-117); Anion Gap 4 (5-15); BUN 17 mg/dL (7-18); BUN/Creat Ratio 25.4 RATIO (10-20); Calcium,Total 8.9 mg/dL (8.5-10.1); Chloride 107 mmol/L (98-107); Cholesterol 119 mg/dL (200); Creatinine, Serum 0.67 mg/dL (0.55-1.02); EST Glomerular Filtration Rate 90 mL/min (>60); Est Glom Filt Rate - Afr Amer 108 mL/min (>60); Globulin 4.5 g/dL (2.2-4.2); Glucose 147 mg/dL (74-106); High Density Lipoprotein 42 mg/dL; Potassium 4.1 mmol/L (3.5-5.1); Protein, Total 7.8 g/dL (6.4-8.2); Sodium Level 140 mmol/L (136-145); Triglycerides 78 mg/dL; Very Low Density Lipoprotein 16 mg/dL (5-40)
[2023-04-20 12:58] LABS: Microalbumin,Random Urine 18.9 mg/L (NO RANGE EST.); Microalbumin:Creatinine Ratio 37.3 mg/g CRE (<30 mg/g CRE)
== END | disposition home or self-care (01) ==
LOC: MTLAB 09:24
PROVIDERS: PCP Family Medicine; Referring Provider Family Medicine; Visit Provider Family Medicine
DX: E11.9 Type 2 diabetes mellitus without complications (principal); E78.5 Hyperlipidemia, unspecified
CPT/HCPCS: 36415; 80053; 80061; 82043; 82570; 85025

== ENCOUNTER → 2023-04-24 | Outpatient (CLI) | payer MEDICARE, OTHER, SELFPAY ==
--- OUTSIDE RECORDS SUMMARY | 2023-04-24 20:45 | XMS RPT_ITS | CCD ---
Author Name Unknown Address [address] [place] [id number] Organization [facility] Results Test Name Value Interpretation Reference Range Facil ity Progress note 11-02-2020 Note Date & Type Note Facility 11-02-2020 Note HNO ID: [id number] Author: Socorro Shine, Service: ? Author Type: Physician Type: Progress Notes Filed: 11/02/2020 4:20 PM Note Text: This office note has been dictated. Socorro Shine DO [facility] Progress note 11-02-2020 Note Date & Type Note Facility 11-02-2020 Note HNO ID: [id number] Author: Socorro Shine DO Service: Vascular Surgery Author Type: Physician Type: Progress Notes Filed: 11/08/2020 9:50 AM Note Text: NAME: LAZARA SHANE CLINIC NO: [id number] DATE OF SERVICE: 11/02/2020 Subjective: Mrs. Shane [...] plan. Socorro Shine D.O. KB/089 Audio #: [id number] Date Dictated: 11/02/2020 14:36:42 Date Typed: 11/06/2020 09:07:23 Date Revised: [facility] Progress note 07-20-2020 Note Date & Type Note Facility 07-20-2020 Note HNO ID: [id number] Author: Socorro Shine Service: ? Author Type: [...] them. Was evaluated in the past in [place] for her varicose veins however did not [...] frequency, or in (more content not included)... [facility] Summary Purpose Family History No Family [...] BE BASED ON THE PRIMARY CLINICAL RECORDS. [employer] [facility]. provides no warranty or guarantee of the accuracy or completeness of information in this document.
== END | disposition home or self-care (01) ==
LOC: SL 20:43
PROVIDERS: PCP Family Medicine; Referring Provider Family Medicine; Visit Provider Family Medicine
DX: G47.33 Obstructive sleep apnea (adult) (pediatric) (principal); R06.83 Snoring; R35.1 Nocturia
CPT/HCPCS: 95810

== ENCOUNTER 2023-06-01 22:22 | Emergency (ER) | payer MEDICARE, OTHER, SELFPAY ==
[2023-06-01 22:24] VITALS: BP 158/60; PULSE 91; RESP 18; TEMP 36.3; O2SAT 100; BMI 43.5
--- NOTE | 2023-06-01 22:58 | CT_ITS ---
STUDY: CT BRAIN WITHOUT CONTRAST REASON FOR EXAM: Female, 82 years old. Trauma RADIATION DOSAGE (If Supplied By Facility): CTDIvol = ( 44.99 ) mGy, DLP = ( 779.24 ) mGycm TECHNIQUE: Transaxial CT imaging of the brain was performed without administration of intravenous contrast material. Individualized dose optimization techniques were used for this CT. COMPARISON: 10/04/2015. FINDINGS: There is mild left posterolateral scalp hematoma from mid skull to the vertex measuring 8 mm in depth. Normal calvarium. There is mild cerebral atrophy with widening of the extra-axial spaces and ventricular dilatation. There are areas of decreased attenuation within the white matter tracts of the supratentorial brain, consistent with mild microvascular disease changes. Normal basal ganglia and thalami. Normal brainstem. Normal cerebellum. There is no intracranial hemorrhage. There are no findings of an acute ischemic infarction. Normal visualized paranasal sinuses. CT/Brain/Head without Contrast IMPRESSION: Chronic changes as described with no acute intracranial hemorrhage or space-occupying lesion. Left posterior scalp hematoma with no skull fracture. Electronically Signed: Molly Andrade MD at 0:16 EST ,
--- NOTE | 2023-06-01 22:58 | CT_ITS ---
INDICATION: left rib pain EXAMINATION: CT CHEST WITHOUT CONTRAST - CT Chest W/O Contrast Injection TECHNIQUE: Helically acquired images were obtained of the chest. A radiation dose optimization technique was used for this scan. IV Contrast dosage and agent: None. COMPARISON: None. FINDINGS: LUNGS, PLEURA AND LARGE AIRWAYS: Minimal posterior dependent atelectasis, remainder of the lung block are clear. No masses, consolidation, or edema. No pleural effusion or thickening. No pneumothorax. THYROID: No thyroid lesions. HEART AND PERICARDIUM: Heart size is normal. No pericardial effusion. CORONARY ARTERIES: Coronary artery calcification is seen. VESSELS: Calcified atherosclerosis of aorta with no aneurysm. MEDIASTINUM AND MAINOR: No mediastinal or hilar adenopathy. Esophagus is unremarkable. Possible minimal hiatal hernia. UPPER ABDOMEN: No acute pathology. BONES: Diffuse osteopenia with degenerative disease of thoracic spine. CT/Chest without Contrast IMPRESSION: Minimal posterior subpleural atelectasis, otherwise no acute cardiac pulmonary disease. No distinct rib fracture seen although exam is limited due to underlying osteopenia which makes distinction of fractures difficult. Electronically Signed: Molly Andrade MD at 1:01 [facility] ,
--- NOTE | 2023-06-01 22:58 | RAD_ITS ---
STUDY: X-RAY - LEFT HUMERUS REASON FOR EXAM: Female, 82 years old. pain TECHNIQUE: 2 view(s) of the humerus. COMPARISON: None. FINDINGS: There is diffuse demineralization of the humerus. There is no demonstrated fracture or osseous destructive process. There is arthrosis of the visualized glenohumeral articulation. There is no demonstrated soft tissue abnormality. RAD/Humerus min 2 Views IMPRESSION: Diffuse osteopenia with no acute fracture or subluxation. Electronically Signed: Molly Andrade MD at 0:03 EST ,
--- NOTE | 2023-06-01 22:58 | CT_ITS ---
STUDY: CT LUMBAR SPINE WITHOUT CONTRAST REASON FOR EXAM: Female, 82 years old. pain RADIATION DOSAGE (If Supplied By Facility): CTDIvol = ( 41.79 ) mGy, DLP = ( 2327.76 ) mGycm TECHNIQUE: The patient was scanned in a multi detector CT scanner. High resolution transaxial imaging was performed. Images were obtained from T10 to sacrococcygeal junction.. Sagittal and coronal images were reconstructed. Individualized dose optimization techniques were used for this CT. COMPARISON: None FINDINGS: Normal lumbar lordosis. There is no substantial scoliosis. Normal alignment of the lumbar vertebral bodies. Normal vertebrae of the lumbar spine. There is no demonstrated compression deformity or fracture of the visualized lumbar vertebrae. Diffuse osteopenia/osteoporosis. Degenerative disease of bilateral SI joints. L1-2: Mild spondylosis with mild narrowing of disc height. Vacuum phenomenon. Minimal diffuse posterior disc bulge. Hypertrophy of the bilateral facet joints. Normal central canal and bilateral lateral recesses. Normal bilateral intervertebral neural foramina. L2-3: Mild spondylosis with mild narrowing of disc height. Vacuum phenomenon. Minimal diffuse posterior disc bulge. Hypertrophy of the bilateral facet joints. Normal central canal and bilateral lateral recesses. Normal bilateral intervertebral neural foramina. L3-4: Mild spondylosis. Mild diffuse posterior disc bulge. Mild hypertrophy of ligamentum flavum/facet complex. No central canal stenosis. No neural foraminal encroachment. L4-5: Mild spondylosis with mild narrowing of disc height. Vacuum phenomenon. Minimal diffuse posterior disc bulge. Hypertrophy of the bilateral facet joints. Normal central canal and bilateral lateral recesses. Normal bilateral intervertebral neural foramina. L5-S1: Mild spondylosis with mild narrowing of disc height. Vacuum phenomenon. Minimal diffuse posterior disc bulge. Hypertrophy of the bilateral facet joints. Normal central canal and bilateral lateral recesses. Normal bilateral intervertebral neural foramina. Normal visualized paraspinous soft tissue structures. Atherosclerosis throughout the aorta. CT/Spine Lumbar without Contrast IMPRESSION: Diffuse osteopenia/osteoporosis with no distinct fracture, spondylolisthesis or pars defect. No significant central canal stenosis or neural foraminal encroachment. Electronically Signed: Molly Andrade MD at 1:04 EST ,
--- NOTE | 2023-06-01 22:58 | CT_ITS ---
STUDY: CT CERVICAL SPINE WITHOUT CONTRAST REASON FOR EXAM: Female, 82 years old. pain RADIATION DOSAGE (If Supplied By Facility): CTDIvol = ( 27.21 ) mGy, DLP = ( 531.68 ) mGycm TECHNIQUE: High resolution transaxial imaging was performed without contrast material. Sagittal and coronal images were reconstructed. Individualized dose optimization techniques were used for this CT. COMPARISON: None FINDINGS: Normal craniovertebral junction. There are degenerative changes of the anterior atlantoaxial articulation. Normal odontoid process. Diffuse osteopenia. Normal cervical lordosis. Mild multilevel spondylosis with fairly well-preserved disc height. Normal vertebral bodies and posterior osseous elements. C2-3: Mild spondylosis. Normal disc height. Mild bilateral apophyseal hypertrophy. No central canal stenosis. No neural foraminal encroachment. C3-4: Mild spondylosis . Normal disc height. Mild bilateral apophyseal hypertrophy. No central canal stenosis. No neural foraminal encroachment. C4-5: Mild spondylosis . Normal disc height. Mild to moderate bilateral apophyseal hypertrophy, left more than right. No central canal stenosis. No neural foraminal encroachment. C5-6: Mild spondylosis . Normal disc height. Mild bilateral apophyseal hypertrophy, left more than right. No central canal stenosis. No neural foraminal encroachment. C6-7: Mild spondylosis. Normal disc height. Mild bilateral apophyseal hypertrophy. No central canal stenosis. No neural foraminal encroachment. C7-T1: Mild spondylosis. Normal disc height. Mild bilateral apophyseal hypertrophy. No central canal stenosis. No neural foraminal encroachment. Normal visualized soft tissue structures. CT/Spine Cervical without Contras IMPRESSION: Multilevel spondylosis/degenerative disease with no acute fracture or subluxation. Electronically Signed: Molly Andrade MD at 0:20 EST ,
--- NOTE | 2023-06-01 23:01 | ED.VIS.FALL ---
HPI HPI - Fall History of Present Illness Chief Complaint: Fall Narrative Narrative: 82-year-old female presents via EMS with her daughter after a fall. She states that she stepped up onto the top step while she was at home, turned her left foot, and fell onto the driveway. She now complains of left rib pain, low back pain, but she has been having low back pain in the past. She has left humeral pain, left-sided rib pain as well. While she struck the back of her head on the driveway, she sustained an abrasion, but denies any loss of consciousness. She is starting to develop more left-sided neck pain. She does not take blood thinners. She was unable to get up and required the assistance of EMS before she was able to stand. [facility] Medical History Asthma Diabetes Diarrhea Gastroparesis Shortness of breath Unsteady gait Home Medications Cholecalciferol (Vitamin D3) [Vitamin D3] 5,000 unit PO DAILY supplement 11/08/17 [History Last Taken 11/08/17 08:00] ascorbic acid (vitamin C) 500 mg capsule 500 mg PO DAILY supplement 11/08/17 [History Last Taken 11/07/17 20:00] brimonidine 0.15 % eye drops 1 drp BID damaged eye 11/08/17 [History Last Taken 11/08/17 08:00] calcium carbonate 600 mg calcium (1,500 mg) tablet 600 mg PO QHS supplement 11/08/17 [History Last Taken 11/07/17 20:00] cyanocobalamin (vitamin B-12) 500 mcg tablet 1 tab PO DAILY@0800 supplement 11/08/17 [History Last Taken 11/08/17 08:00] glimepiride 4 mg tablet 4 mg PO BID diabetes 11/08/17 [History Last Taken 11/08/17 08:00] insulin glargine 100 unit/mL subcutaneous solution (Lantus U-100 Insulin) 18 unit subcut QHS diabetes 11/08/17 [History Last Taken 11/07/17 20:00] losartan 50 mg tablet 75 mg PO DAILY blood pressure 11/08/17 [History Last Taken 11/08/17 08:00] magnesium oxide 400 mg PO QHS supplement 11/08/17 [History Last Taken 11/07/17 20:00] multivitamin (Daily Multiple tablet) 1 ea PO DAILY supplement 11/08/17 [History Last Taken 11/08/17 08:00] omega-3 fatty acids-fish oil 340 mg-1,000 mg capsule (Fish Oil) 1 ea PO DAILY supplement 11/08/17 [History Last Taken 11/08/17 08:00] omeprazole 20 mg capsule,delayed release 20 mg PO DAILY 11/08/17 [History Last Taken 11/08/17 08:00] pravastatin 10 mg tablet 10 mg PO QHS cholesterol 11/08/17 [History Last Taken 11/07/17 20:00] Saccharomyces boulardii 250 mg capsule (Daily Probiotic (S. boulardii)) 250 mg PO DAILY 11/30/20 [History Last Taken Unknown] insulin regular human 100 unit/mL injection solution 4 unit subcut 11/30/20 [History Last Taken Unknown] pioglitazone 45 mg tablet (Actos) 45 mg PO DAILY 10/27/21 [History Last Taken Unknown] Allergy/AdvReac Type Severity Reaction Status Date / Time levofloxacin [From Levaquin] Allergy Mild rash Verified 06/01/23 22:23 aspirin Allergy Rash Verified 06/01/23 22:23 codeine Allergy Rash Verified 06/01/23 22:23 NSAIDS (Non-Steroidal Allergy Rash Verified 06/01/23 22:23 Anti-Inflamma Penicillins Allergy Rash Verified 06/01/23 22:23 solifenacin [From Vesicare] Allergy Unknown Verified 06/01/23 22:23 Sulfa (Sulfonamide Allergy Rash Verified 06/01/23 22:23 Antibiotics) Family History Sister Breast cancer Mother CVA (cerebral vascular accident) Hypertension Father Diabetes Heart disease Surgical History History of colonoscopy History of hysterectomy History of knee replacement History of left inguinal hernia repair History of left inguinal hernia repair History of left inguinal hernia repair Social History household members: family Smoking Status: Former smoker substance use type: does not use ROS ROS ED ROS Narrative Constitutional: No fever, no chills. HEENT: No sore throat. Developing left-sided neck pain. No loss of vision. No rhinorrhea. Knot on back of head. Small abrasion. Cardiovascular: Left-sided anterior rib pain/chest pain. No palpitations. No pedal edema. Respiratory: No cough, no shortness of breath. Abdominal: No abdominal pain. No nausea. No vomiting. Genitourinary: No dysuria. No hematuria. Musculoskeletal: No myalgias. Left upper arm pain. Low back pain. Neurologic: No headaches. No dizziness. No lightheadedness. Skin: No rash. No change in color. Psychiatric: No depression. No anxiety. EXAM Physical Exam Narrative Exam Narrative: Afebrile. Vital signs noted. GCS 15. ABCs intact. HEENT: Normocephalic. Positive hematoma with overlying abrasion on occiput, no active bleeding. PERRL, EOMI. Neck soft and supple. No point tenderness or step off. Left-sided paraspinal muscular tenderness. Cardiovascular: Regular rate and rhythm. No murmurs, rubs, or gallops appreciated. Mild tenderness to palpation left anterior ribs, no crepitance. Respiratory: No tachypnea. Lungs clear to auscultation bilaterally. Gastrointestinal: Abdomen soft, nontender, with normoactive bowel sounds. No rebound or guarding. Neurological: Awake. Alert. Oriented x 3. Nonfocal, nonlateralizing. Able to raise arms above head without difficulty. Skin: No rash. Normal color. No pallor. Musculoskeletal: No pedal edema. Full range of motion extremities. Diffuse tenderness to palpation left humerus. No evidence of dislocation on examination. Palpable radial pulse, left. Const Vital Signs: 06/01/23 22:24 06/01/23 22:30 Temperature 97.4 F L Temperature Source Temporal Pulse Rate 91 Respiratory Rate 18 Respiratory Effort Normal Non-Labored Respiratory Depth Normal Respiratory Pattern Normal Blood Pressure 158/60 H Blood Pressure Mean 92 Pulse Ox 100 Oxygen Delivery Method Room Air Room Air MDM MDM MDM Narrative Medical decision making narrative: The differential diagnosis is closed head injury versus intracranial hemorrhage. Given her occipital hematoma, I do feel CT imaging is indicated. While her neck pain is developing and is more paraspinal, CT imaging will be obtained of the cervical spine and of the lumbar spine because she is complaining of low back pain as well. CT of the chest will be obtained. Additionally, I will obtain x-rays of the left humerus to rule out fracture. Patient was given a Magnolia tablet for analgesia and an ice pack for comfort. I reviewed the radiology reports of the CT of the brain which shows an occipital hematoma but no evidence of a skull fracture or intracranial hemorrhage. I reviewed the CT report for the cervical and lumbar spine which demonstrated multilevel degenerative joint disease but no evidence of acute fractures. CT of the chest was obtained to look for pneumothorax and to rule out rib fracture. There is no apparent rib fracture according to the CT report. I individually interpreted the left humerus x-rays and see no evidence of acute fracture or dislocation. I reviewed the radiology report which confirms my independent interpretation. Her occipital abrasion was cleansed. She is unsure of her last tetanus immunization so she was given a Boostrix IM injection here in the emergency department. At this point in time, I do feel that she can take [id number] analgesics that she does not require observation or narcotic pain medication secondary to its side effect profile. She will be discharged to follow-up with her primary care provider. Return instructions reviewed. Disposition is discharged home in stable condition. History & Record Review Discussion w/independent historian: Patient Additional record(s) reviewed:: Prior ED visit Radiography Diagnostic Testing: Clinical Impression(s) from Imaging Studies Brain CT 06/01/23 22:58 IMPRESSION: Chronic changes as described with no acute intracranial hemorrhage or space-occupying lesion. Left posterior scalp hematoma with no skull fracture. Electronically Signed: Molly Andrade MD at 0:16 EST Reading Location ID and State: [id number] / [facility] , Service support , Cervical Spine CT 06/01/23 22:58 IMPRESSION: Multilevel spondylosis/degenerative disease with no acute fracture or subluxation. Electronically Signed: Molly Andrade MD at 0:20 EST , Chest CT 06/01/23 22:58 IMPRESSION: Minimal posterior subpleural atelectasis, otherwise no acute cardiac pulmonary disease. No distinct rib fracture seen although exam is limited due to underlying osteopenia which makes distinction of fractures difficult. Electronically Signed: Molly Andrade MD at 1:01 EST , Humerus X-Ray 06/01/23 22:58 IMPRESSION: Diffuse osteopenia with no acute fracture or subluxation. Electronically Signed: Molly Andrade MD at 0:03 EST , Lumbar Spine CT 06/01/23 22:58 IMPRESSION: Diffuse osteopenia/osteoporosis with no distinct fracture, spondylolisthesis or pars defect. No significant central canal stenosis or neural foraminal encroachment. Electronically Signed: Molly Andrade MD at 1:04 EST Reading Location ID and State: [id number] / [facility] [employer] [facility] , Service support , Discharge Plan Triage Chief Complaint: Fall ED Provider: Tutu Brown Dx/Rx/DC Orders Clinical Impression: Hematoma of occipital region of scalp, Rib pain on left side, Left arm pain, Abrasion, Fall Instructions: ED Mechanical Fall, ED Head Injury (Adult), ED Hematoma, ED Bruise, Rib Prescriptions: No Action Novolin R Regular U-100 Insuln 100 unit/mL solution 4 unit subcut Patient Comments: INJECT 4 UNITS SUBCUTANEOUSLY ONCE DAILY WITH THE LARGEST MEAL Saccharomyces boulardii [Daily Probiotic (S. boulardii)] 250 mg capsule 250 mg PO DAILY pioglitazone [Actos] 45 mg tablet 45 mg PO DAILY multivitamin [Daily Multiple] 1 EACH tablet 1 ea PO DAILY losartan 50 MG tablet 75 mg PO DAILY insulin glargine [Lantus U-100 Insulin] 100 UNIT/ML solution 18 unit subcut QHS Patient Comments: 25 with taking steroid calcium carbonate 600 MG tablet 600 mg PO QHS pravastatin 10 MG tablet 10 mg PO QHS cyanocobalamin (vitamin B-12) 500 MCG tablet 1 tab PO DAILY@0800 glimepiride 4 MG tablet 4 mg PO BID omeprazole 20 MG capsule,delayed release(DR/EC) 20 mg PO DAILY brimonidine 1 DROP bottle 1 drp Left Eye BID omega-3 fatty acids-fish oil [Fish Oil] 1 EACH capsule 1 ea PO DAILY ascorbic acid (vitamin C) 500 MG capsule 500 mg PO DAILY magnesium oxide 400 MG tablet 400 mg PO QHS Cholecalciferol (Vitamin D3) [Vitamin D3] 5,000 UNIT capsule 5,000 unit PO DAILY Primary Care Provider: Marilee Jiang Referrals: Marilee Jiang DO [Primary Care Provider] - 3-5 Days if not improving Activity Restrictions/Additional Instructions: Tylenol or ibuprofen as needed for pain. Ice on sore areas. Follow-up with your primary care provider in the next 3 to 5 days if worsening. Disposition Disposition: Home, Self Care
--- OUTSIDE RECORDS SUMMARY | 2023-06-01 23:12 | XMS RPT_ITS | CCD ---
Author Name Unknown Address [address] [place] [id number] Organization [facility] Results Test Name Value Interpretation Reference Range Facil ity Progress note 11-02-2020 Note Date & Type Note Facility 11-02-2020 Note HNO ID: [id number] Author: Socorro Shine, Service: ? Author Type: Physician Type: Progress Notes Filed: 11/02/2020 4:20 PM Note Text: This office note has been dictated. Socorro Shine DO [facility] Progress note 11-02-2020 Note Date & Type Note Facility 11-02-2020 Note HNO ID: [id number] Author: Socorro Shine DO Service: Vascular Surgery Author Type: Physician Type: Progress Notes Filed: 11/08/2020 9:50 AM Note Text: NAME: LAZARA SHANE [facility]IN[facility] NO: [id number] DATE OF SERVICE: 11/02/2020 Subjective: Mrs. Shane [...] plan. Socorro Shine D.O. [id number] Audio #: [id number] Date Dictated: 11/02/2020 14:36:42 Date Typed: 11/06/2020 09:07:23 Date Revised: [facility] Progress note 07-20-2020 Note Date & Type Note Facility 07-20-2020 Note HNO ID: [id number] Author: Socorro Shine Service: ? Author Type: [...] them. Was evaluated in the past in [place] for her varicose veins however did not [...] frequency, or in (more content not included)... [facility] Summary Purpose Family History No Family History [...] BE BASED ON THE PRIMARY CLINICAL RECORDS. [facility]. provides no warranty or guarantee of the accuracy or completeness of information in this document.
[2023-06-02] MEDS: HYDROcodone Bitartrate/Apap 5/325 Tablet PO (01:06)
[2023-06-02] MEDS: Diphth,Pertuss(Acell),Tet Vac 0.5 ML Vial IM (01:25)
[2023-06-02 01:29] VITALS: BP 140/68; PULSE 72; RESP 18; O2SAT 97
== END 2023-06-02 01:51 | disposition home or self-care (01) ==
PROVIDERS: Emergency Provider Emergency Medicine; PCP Family Medicine; Visit Provider Emergency Medicine
DX: S00.03XA Contusion of scalp, initial encounter (principal); E11.9 Type 2 diabetes mellitus without complications; R07.81 Pleurodynia; M79.622 Pain in left upper arm; W10.9XXA Fall (on) (from) unspecified stairs and steps, initial encounter; Z87.891 Personal history of nicotine dependence; J45.909 Unspecified asthma, uncomplicated; M47.816 Spondylosis without myelopathy or radiculopathy, lumbar region; Z23 Encounter for immunization
CPT/HCPCS: 70450; 71250; 72125; 72131; 73060; 90471; 99282

== ENCOUNTER → 2023-06-18 | Outpatient (CLI) | payer MEDICARE, OTHER, SELFPAY ==
[2023-06-18 18:06] LABS: Anion Gap 6 (5-15); BUN 18 mg/dL (7-18); BUN/Creat Ratio 26.6 RATIO (10-20); Calcium,Total 9.2 mg/dL (8.5-10.1); Chloride 101 mmol/L (98-107); Creatinine, Serum 0.68 mg/dL (0.55-1.02); EST Glomerular Filtration Rate 89 mL/min (>60); Est Glom Filt Rate - Afr Amer 107 mL/min (>60); Glucose 194 mg/dL (74-106); Potassium 4.5 mmol/L (3.5-5.1); Sodium Level 133 mmol/L (136-145)
== END | disposition home or self-care (01) ==
LOC: MTLAB 15:18
PROVIDERS: PCP Family Medicine; Referring Provider Urology; Visit Provider Urology
DX: N39.44 Nocturnal enuresis (principal)
CPT/HCPCS: 36415; 80048

== ENCOUNTER 2023-08-03 21:40 | Emergency (ER) | payer MEDICARE, OTHER, SELFPAY ==
[2023-08-03 21:41] VITALS: BP 178/81; PULSE 79; RESP 17; TEMP 36.1; O2SAT 98; BMI 42.7
--- NOTE | 2023-08-03 22:08 | EDS_ITS ---
HPI History of Present Illness Chief Complaint: Back Informant: patient and family (daughter) Onset/Context/Timing Onset: Weeks (1) Context: Gradual Onset Timing: Continuous Quality: Aching Location: Lumbar Current Severity: Severe Maximum Severity: Severe Worsened by: improves with Movement Relieved by: Remaining Still; Not Relieved By Medications Associated Symptoms Associated Symptoms: Negative for Numbness, Tingling, Radiation to Right Leg, Radiation to Left Leg, Unable to Transfer, Urinary Retention, Urinary Incontinence (hx of it, nothing new/worse), Constipation or Fecal Incontinence Narrative Narrative: 83-year-old female presenting with back pain she states she has issues with chronic pain due to spinal stenosis in her low back, but this has been severe pain for the past week and feels a little different. It is a little bit off to the right but still her low back, going into her buttock and sometimes when it is really severe with certain movements, comes around her waist but it does not go down either extremity. She denies any weakness or numbness, acute new bowel or bladder dysfunction, or recent falls or injury. She cannot recall if there w as anything specific associated with the onset of this. She takes [id number] medications for her back, and they have not been helping and there is nothing different about it today she states she was just tired of the pain. She has an appointment to see pain management Dr. Graves within the next week or 2 but she has not seen them for this yet. [facility] Medical History Asthma Diabetes Diarrhea Gastroparesis Shortness of breath Unsteady gait Home Medications Cholecalciferol (Vitamin D3) [Vitamin D3] 5,000 unit PO DAILY supplement 11/08/17 [History Last Taken 11/08/17 08:00] ascorbic acid (vitamin C) 500 mg capsule 500 mg PO DAILY supplement 11/08/17 [History Last Taken 11/07/17 20:00] brimonidine 0.15 % eye drops 1 drp BID damaged eye 11/08/17 [History Last Taken 11/08/17 08:00] calcium carbonate 600 mg PO QHS supplement 11/08/17 [History Last Taken 11/07/17 20:00] cyanocobalamin (vitamin B-12) 500 mcg tablet 1 tab PO DAILY@0800 supplement 11/08/17 [History Last Taken 11/08/17 08:00] glimepiride 4 mg tablet 4 mg PO BID diabetes 11/08/17 [History Last Taken 11/08/17 08:00] insulin glargine 100 unit/mL subcutaneous solution (Lantus U-100 Insulin) 18 unit subcut QHS diabetes 11/08/17 [History Last Taken 11/07/17 20:00] losartan 50 mg tablet 75 mg PO DAILY blood pressure 11/08/17 [History Last Taken 11/08/17 08:00] magnesium oxide 400 mg PO QHS supplement 11/08/17 [History Last Taken 11/07/17 20:00] multivitamin (Daily Multiple tablet) 1 ea PO DAILY supplement 11/08/17 [History Last Taken 11/08/17 08:00] omega-3 fatty acids-fish oil 340 mg-1,000 mg capsule (Fish Oil) 1 ea PO DAILY supplement 11/08/17 [History Last Taken 11/08/17 08:00] omeprazole 20 mg capsule,delayed release 20 mg PO DAILY 11/08/17 [History Last Taken 11/08/17 08:00] pravastatin 10 mg tablet 10 mg PO QHS cholesterol 11/08/17 [History Last Taken 11/07/17 20:00] Saccharomyces boulardii 250 mg capsule (Daily Probiotic (S. boulardii)) 250 mg PO DAILY 11/30/20 [History Last Taken Unknown] insulin regular human 100 unit/mL injection solution 4 unit subcut 11/30/20 [History Last Taken Unknown] pioglitazone 45 mg tablet (Actos) 45 mg PO DAILY 10/27/21 [History Last Taken Unknown] cyclobenzaprine 5 mg tablet 5 mg PO BID PRN muscle spasm #10 tabs 08/03/23 [Rx Last Taken Unknown] hydrocodone-acetaminophen 5-325mg 5mg-325mg 1 tab PO Q6H PRN pain 3 days #10 TABLETS 08/03/23 [Rx Last Taken Unknown] Allergy/AdvReac Type Severity Reaction Status Date / Time [facility] Allergy Mild rash Verified 08/03/23 21:44 oxycodone Allergy Mild Swelling Verified 08/03/23 21:45 aspirin Allergy Rash Verified 08/03/23 21:44 codeine Allergy Rash Verified 08/03/23 21:44 NSAIDS (Non-Steroidal Allergy Rash Verified 08/03/23 21:44 Anti-Inflamma Penicillins Allergy Rash Verified 08/03/23 21:44 solifenacin [From Vesicare] Allergy Unknown Verified 08/03/23 21:44 Sulfa (Sulfonamide Allergy Rash Verified 08/03/23 21:44 Antibiotics) Family History Sister Breast cancer Mother CVA (cerebral vascular accident) Hypertension Father Diabetes Heart disease Surgical History History of colonoscopy History of hysterectomy History of knee replacement History of left inguinal hernia repair History of left inguinal hernia repair History of left inguinal hernia repair Social History household members: family Smoking Status: Former smoker substance use type: does not use ROS ROS ED Constitutional Constitutional ED: Denies chills or fever(s) Gastrointestinal Gastrointestinal: Denies abdominal pain, constipation, fecal incontinence, nausea or vomiting Genitourinary Genitourinary ED: Reports other Details: no urinary retention ; Denies abdominal discomfort or urinary incontinence Musculoskeletal Musculoskeletal: Reports as per HPI and back pain; Denies neck pain Integumentary Denies rash or wounds Neurologic Neurologic: Denies headache(s), paresthesias or weakness EXAM Physical Exam Const Vital Signs: 08/03/23 21:41 Temperature 97 F L Temperature Source Temporal Pulse Rate 79 Respiratory Rate 17 Blood Pressure 178/81 H Blood Pressure Mean 113 Pulse Ox 98 Oxygen Delivery Method Room Air Positive well nourished, well developed and obese General Appearance ED: well developed and NAD Nutritional Appearance: obese HEENT Negative for trauma or tenderness Eyes PERRL and EOMs intact bilaterally Neck full ROM and supple GI normal to inspection, nondistended, normoactive bowel sounds, soft to palpation and non-tender Back/Spine normal to inspection Back/Spine Narrative: Painful range of motion but patient able Lumbar Spine / Lower Back: ROM limited, paraspinal muscle tenderness right (Lumbosacral, in the area of the SI joint; less tender in the buttock, no tenderness at the sciatic notch) and straight leg raise negative bilaterally; Negative for lumbar spinal tenderness Extremity normal to inspection, full ROM and no pedal edema Neuro oriented x3 and no sensory deficits noted Sensorium / Orientation: alert Motor Exam: strength 5/5 throughout and clonus absent Deep Tendon Reflexes: Rt Patellar (L4): 2+, Lt Patellar (L4): 2+, Rt Ankle (S1): 2+ and Lt Ankle (S1): 2+ Deep Tendon Reflexes Back: Rt Patellar (L4): 2+, Lt Patellar (L4): 2+, Rt Ankle (S1): 2+ and Lt Ankle (S1): 2+ Plantar Reflex: Downgoing: bilateral Psych mental status grossly normal and thought process normal Skin no rashes or lesions noted and no wounds MDM MDM MDM Narrative Medical decision making narrative: I reviewed some old records, she was seen here for a fall about 1.5 months ago and had a CT of her lumbar spine as part of the workup for her pain and injuries, it was negative for anything acute including canal stenosis at least anything visible on CT, and no lytic lesions or anything else suspicious for malignancy, so for these reasons I do not think she needs new x-ray imaging right now of her lumbar spine. She was given morphine injection, prophylactic zofran, and also an oral Flexeril 5mg, which daughter requests because she has tolerated it well in the past. On reevaluation, this helped a lot she is doing much better. She does not have symptoms or clinical findings of sciatica, cauda equina syndrome, or conus medullaris syndrome. Plan is to have nurses help to mobilize around her feet, get her home with prescriptions for short course of Flexeril and hydrocodone to use as needed until she can follow-up. I think this is probably SI joint related, given the location of the pain which is right over the right one. History & Record Review Additional record(s) reviewed:: Prior ED visit Discharge Plan Triage Chief Complaint: Back ED Provider: Rohit Smith Dx/Rx/DC Orders Clinical Impression: Sacroiliac joint dysfunction of right side Instructions: Anatomy of the Sacroiliac Joint, ED Sacroiliitis Prescriptions: New cyclobenzaprine 5 mg tablet 5 mg PO BID PRN (Reason: muscle spasm) Qty: 10 0RF hydrocodone-acetaminophen [hydrocodone-acetaminophen] 5-325 mg tablet 1 tab PO Q6H PRN (Reason: pain) 3 Days Qty: 10 0RF No Action Novolin R Regular U-100 Insuln 100 unit/mL solution 4 unit subcut Patient Comments: INJECT 4 UNITS SUBCUTANEOUSLY ONCE DAILY WITH THE LARGEST MEAL Saccharomyces boulardii [Daily Probiotic (S. boulardii)] 250 mg capsule 250 mg PO DAILY pioglitazone [Actos] 45 mg tablet 45 mg PO DAILY multivitamin [Daily Multiple] 1 EACH tablet 1 ea PO DAILY losartan 50 MG tablet 75 mg PO DAILY insulin glargine [Lantus U-100 Insulin] 100 UNIT/ML solution 18 unit subcut QHS Patient Comments: 25 with taking steroid calcium carbonate 600 MG tablet 600 mg PO QHS pravastatin 10 MG tablet 10 mg PO QHS cyanocobalamin (vitamin B-12) 500 MCG tablet 1 tab PO DAILY@0800 glimepiride 4 MG tablet 4 mg PO BID omeprazole 20 MG capsule,delayed release(DR/EC) 20 mg PO DAILY brimonidine 1 DROP bottle 1 drp Left Eye BID omega-3 fatty acids-fish oil [Fish Oil] 1 EACH capsule 1 ea PO DAILY ascorbic acid (vitamin C) 500 MG capsule 500 mg PO DAILY magnesium oxide 400 MG tablet 400 mg PO QHS Cholecalciferol (Vitamin D3) [Vitamin D3] 5,000 UNIT capsule 5,000 unit PO DAILY Primary Care Provider: Marilee Jiang Referrals: Marilee Jiang DO [Primary Care Provider] - 1 Week if not improving Disposition Disposition: Home, Self Care
[2023-08-03] MEDS: Morphine 2 MG/ML Syringe IM (22:31)
[2023-08-03] MEDS: Ondansetron ODT 4 MG Tablet 8 MG PO (22:31)
[2023-08-03] MEDS: cycloBENZAPRine HCl 5 MG TABLET PO (22:49)
[2023-08-03 23:47] VITALS: BP 174/75; PULSE 73; RESP 16; TEMP 35.8; O2SAT 98
== END 2023-08-03 23:50 | disposition home or self-care (01) ==
PROVIDERS: Emergency Provider Emergency Medicine; PCP Family Medicine; Visit Provider Emergency Medicine
DX: M53.3 Sacrococcygeal disorders, not elsewhere classified (principal); E11.43 Type 2 diabetes mellitus with diabetic autonomic (poly)neuropathy; M48.00 Spinal stenosis, site unspecified; Z87.891 Personal history of nicotine dependence; J45.909 Unspecified asthma, uncomplicated; K31.84 Gastroparesis; E66.9 Obesity, unspecified
CPT/HCPCS: 96372; 99282

== ENCOUNTER → 2023-09-05 | Outpatient (CLI) | payer MEDICARE, OTHER, SELFPAY ==
--- NOTE | 2023-09-05 15:19 | RAD_ITS ---
INDICATION: LEG AND GROIN PAIN EXAMINATION/TECHNIQUE: X-RAY - XR Hip Unilateral with Pelvis when performed; 2-3 Views COMPARISON: No relevant prior comparison study available FINDINGS: PELVIC BONES: No displaced fracture, destructive or sclerotic lesions. Note that overlapping bowel shadows may however obscure fine detail. Sacroiliac joints are unremarkable. No widening of the pubic symphysis. HIPS: Moderate narrowing of hip joints bilaterally worse on the right side. No displaced fracture seen in this frontal view. SOFT TISSUES: No soft tissue swelling or gas. Vascular calcifications. RAD/HIP, UNI W/ Pelvis 2-3 Views IMPRESSION: 1. No evidence of displaced pelvic or hip fracture. 2. Narrowing of hip joints bilaterally. Electronically Signed: Sim Guevara MD at 15:48 EDT ,
== END | disposition home or self-care (01) ==
LOC: MTRAD 15:17
PROVIDERS: PCP Family Medicine; Referring Provider Anesthesiology Pain Medicine; Visit Provider Anesthesiology Pain Medicine
DX: M79.604 Pain in right leg (principal); R10.2 Pelvic and perineal pain
CPT/HCPCS: 73502

== ENCOUNTER → 2023-12-21 | Outpatient (CLI) | payer MEDICARE, OTHER, SELFPAY ==
[2023-12-21 18:09] LABS: Anion Gap 6 (5-15); BUN 12 mg/dL (7-18); BUN/Creat Ratio 19.3 RATIO (10-20); Calcium,Total 9.7 mg/dL (8.5-10.1); Chloride 102 mmol/L (98-107); Creatinine, Serum 0.62 mg/dL (0.55-1.02); EST Glomerular Filtration Rate 98 mL/min (>60); Est Glom Filt Rate - Afr Amer 118 mL/min (>60); Glucose 138 mg/dL (74-106); Potassium 4.1 mmol/L (3.5-5.1); Sodium Level 135 mmol/L (136-145)
== END | disposition home or self-care (01) ==
LOC: MTLAB 16:14
PROVIDERS: PCP Family Medicine; Referring Provider Urology; Visit Provider Urology
DX: N39.44 Nocturnal enuresis (principal)
CPT/HCPCS: 36415; 80048

== ENCOUNTER 2024-01-02 18:00 | Emergency (ER) | payer MEDICARE, OTHER, SELFPAY ==
[2024-01-02 18:01] VITALS: BP 154/73; PULSE 93; RESP 14; TEMP 37.6; O2SAT 91; BMI 41.4
[2024-01-02 18:05] VITALS: TEMP 37.6
--- NOTE | 2024-01-02 18:47 | ED.VIS.FALL ---
HPI HPI - Fall History of Present Illness Chief Complaint: Fall Informant: patient, friend and EMS Narrative Narrative: 83-year-old female states that she lives at home with her daughter and sustained a fall this evening. Patient states that she went to turn and lost her balance and Falling. She notes some soreness to the low back. Nursing notes that the patient reported hip pain but she is currently denying at this time. Patient's daughter recently tested positive for COVID. Patient states that she has had a cough over the past several days as well as diarrhea for about a week. She states she feels hungry. She denies head or neck pain from the fall. She was unable to get up on her own therefore EMS was called. [facility] Medical History Diarrhea Diabetes Gastroparesis Unsteady gait Shortness of breath Asthma Home Medications ?Medication ?Instructions ?Recorded ?Last Taken ?Type Cholecalciferol (Vitamin D3) 5,000 unit PO DAILY supplement 11/08/17 11/08/17 08:00 History [Vitamin D3] ascorbic acid (vitamin C) 500 mg 500 mg PO DAILY supplement 11/08/17 11/07/17 20:00 History capsule brimonidine 0.15 % eye drops 1 drp BID damaged eye 11/08/17 11/08/17 08:00 History calcium carbonate 600 mg PO QHS supplement 11/08/17 11/07/17 20:00 History cyanocobalamin (vitamin B-12) 500 1 tab PO DAILY@0800 supplement 11/08/17 11/08/17 08:00 History mcg tablet glimepiride 4 mg tablet 4 mg PO BID diabetes 11/08/17 11/08/17 08:00 History insulin glargine 100 unit/mL 18 unit subcut QHS diabetes 11/08/17 11/07/17 20:00 History subcutaneous solution (Lantus U-100 Insulin) losartan 50 mg tablet 75 mg PO DAILY blood pressure 11/08/17 11/08/17 08:00 History magnesium oxide 400 mg PO QHS supplement 11/08/17 11/07/17 20:00 History multivitamin (Daily Multiple 1 ea PO DAILY supplement 11/08/17 11/08/17 08:00 History tablet) omega-3 fatty acids-fish oil 340 1 ea PO DAILY supplement 11/08/17 11/08/17 08:00 History mg-1,000 mg capsule (Fish Oil) omeprazole 20 mg capsule,delayed 20 mg PO DAILY 11/08/17 11/08/17 08:00 History release pravastatin 10 mg tablet 10 mg PO QHS cholesterol 11/08/17 11/07/17 20:00 History Saccharomyces boulardii 250 mg 250 mg PO DAILY 11/30/20 Unknown History capsule (Daily Probiotic (S. boulardii)) insulin regular human 100 unit/mL 4 unit subcut 11/30/20 Unknown History injection solution pioglitazone 45 mg tablet (Actos) 45 mg PO DAILY 10/27/21 Unknown History cyclobenzaprine 5 mg tablet 5 mg PO BID PRN muscle spasm #10 08/03/23 Unknown Rx tabs hydrocodone-acetaminophen 5-325mg 1 tab PO Q6H PRN pain 3 days #10 08/03/23 Unknown Rx 5mg-325mg TABLETS Allergy/AdvReac Type Severity Reaction Status Date / Time levofloxacin (From Levaquin) Allergy Mild rash Verified 08/03/23 21:44 oxycodone Allergy Mild Swelling Verified 08/03/23 21:45 aspirin Allergy Rash Verified 08/03/23 21:44 codeine Allergy Rash Verified 08/03/23 21:44 NSAIDS (Non-Steroidal Allergy Rash Verified 08/03/23 21:44 Anti-Inflamma Penicillins Allergy Rash Verified 08/03/23 21:44 solifenacin (From Vesicare) Allergy Unknown Verified 08/03/23 21:44 Sulfa (Sulfonamide Allergy Rash Verified 08/03/23 21:44 Antibiotics) Family History Sister Breast cancer Mother CVA (cerebral vascular accident) Hypertension Father Diabetes Heart disease Surgical History History of knee replacement History of hysterectomy History of colonoscopy History of left inguinal hernia repair History of left inguinal hernia repair History of left inguinal hernia repair Social History household members: family Smoking Status: Former smoker substance use type: does not use ROS ROS ED Constitutional Constitutional ED: Denies chills, fever(s) or weight loss Eyes Eyes: Denies change in vision or diplopia ENT ENT ED: Denies ear pain, rhinorrhea or sore throat Cardiovascular Cardiovascular: Denies chest pain, orthopnea, palpitations or racing heartbeat Respiratory/Chest Respiratory/Chest: Reports cough; Denies dyspnea or orthopnea Gastrointestinal Gastrointestinal: Reports diarrhea; Denies abdominal pain, nausea or vomiting Genitourinary Genitourinary ED: Denies dysuria, hematuria or urinary frequency Musculoskeletal Musculoskeletal: Reports back pain; Denies arthralgias, myalgias or neck pain Integumentary Denies abscess or rash Neurologic Neurologic: Denies headache(s) or weakness Psychiatric Psychiatric: Denies anxiety, depression, suicidal ideation or suicidal thoughts Endocrine Endocrinology: Denies polydipsia, polyphagia or polyuria Allergic/Immunologic Allergic/Immunologic ED: Denies mouth swelling, tongue swelling or urticaria EXAM Physical Exam Const Vital Signs: 01/02/24 18:01 01/02/24 18:05 01/02/24 20:01 Temperature 99.6 F H 99.6 F H Temperature Source Oral Pulse Rate 93 85 Respiratory Rate 14 18 Respiratory Effort Normal Non-Labored Respiratory Depth Normal Respiratory Pattern Normal Blood Pressure 154/73 H 150/64 H Blood Pressure Mean 100 92 Pulse Ox 91 98 Oxygen Delivery Method Room Air Room Air Room Air Positive well nourished, well developed and obese General Appearance ED: well developed and NAD Nutritional Appearance: obese HEENT Reports normocephalic, head/scalp atraumatic and moist mucous membranes Eyes PERRL and EOMs intact bilaterally Neck full ROM, no lymphadenopathy, supple and no JVD Resp normal respiratory effort and clear to auscultation bilaterally Resp Narrative: Dry cough Cardio regular rate, regular rhythm and no murmurs GI normal to inspection, nondistended, normoactive bowel sounds and non-tender Palpation: soft Back/Spine no CVA tenderness and normal ROM Back/Spine Narrative: Patient reports mild tenderness to palpation in the lumbar paraspinal region and in the midline.. Extremity normal to inspection General Extremety ED: Negative for edema General Extremity: Negative for edema Neuro oriented x3 and CN's II-XII intact bilaterally Sensorium / Orientation: alert Motor Exam: strength 5/5 throughout Psych mental status grossly normal Mood & Affect: Negative for depressed or tearful Skin no rashes or lesions noted and no wounds MDM MDM MDM Narrative Medical decision making narrative: Differential diagnosis includes but not limited to COVID-19 pneumonia pleural effusion dehydration anemia requiring transfusion fracture sprain strain UTI White count 9.6 hemoglobin 11.2 with platelet count of 250. Electrolytes within normal limit except for sodium 135 glucose 185 BUN 10 creatinine 0.64 normal LFTs. Urinalysis 0-5 white 0-5 reds 0-5 squamous cells negative nitrates 1+ bacteria. My independent interpretation of the chest x-ray is no acute process. CT lumbar spine was obtained read by radiology reviewed by myself. There is not a acute fracture noted. My independent interpretation of the plain films of the pelvis is no acute fracture. Patient was able to ambulate here in the department and did well. She has had Tylenol and some IV fluids. Would recommend continued supportive care at home follow-up with primary care if not improving return if worsening or concerns History & Record Review Discussion w/independent historian: EMS personnel, Patient and Friend Additional record(s) reviewed:: Prior labs Lab Data Attestation: I reviewed the patient's lab results. Labs: Laboratory Results - last 24 hr 01/02/24 01/02/24 19:01 20:28 WBC 9.6 RBC 4.27 Hgb 11.2 L Hct 34.6 L MCV 81.0 MCH 26.2 L MCHC 32.4 RDW Std Deviation 48.9 H RDW Coeff of Adalid 16.6 H Plt Count 250 MPV 9.6 Immature Gran % (Auto) 1.900 H Neut % (Auto) 54.4 Lymph % (Auto) 32.3 [place] % (Auto) 10.8 H Eos % (Auto) 0.1 Baso % (Auto) 0.5 Absolute Neuts (auto) 5.2 Absolute Lymphs (auto) 3.10 Nucleated RBC % 0 Sodium 135 L Potassium 3.7 Chloride 100 Carbon Dioxide 22.0 Anion Gap 13 BUN 10 Creatinine 0.64 Estim Creat Clear Calc 63.27 Est GFR (MDRD) Af Amer 114 Est GFR (MDRD) Non-Af 94 BUN/Creatinine Ratio 15.6 Glucose 185 H Calcium 9.2 Total Bilirubin 0.50 Direct Bilirubin 0.18 AST 27 ALT 26 Alkaline Phosphatase 48 Total Protein 7.6 Albumin 3.3 Globulin 4.3 H Urine Color Yellow Urine Clarity Clear Urine pH 5.0 Ur Specific Benedict 1.015 Urine Protein 100 H Urine Glucose (UA) Normal Urine Ketones 15 H Urine Occult Blood 25 H Urine Nitrite Negative Urine Bilirubin Negative Urine Urobilinogen Normal Ur Leukocyte Esterase Negative Urine RBC 0-5 SEEN Urine WBC 0-5 SEEN Ur Squamous Epith Cells 0-5 SEEN Urine Bacteria 1+ Urine Mucus 0 SEEN Radiography Diagnostic Testing: Clinical Impression(s) from Imaging Studies Chest X-Ray 01/02/24 19:20 IMPRESSION: No radiographic evidence of acute cardiopulmonary disease. Electronically Signed: Roshan Jones MD at 20:07 EDT , Lumbar Spine CT 01/02/24 19:20 IMPRESSION: Diffuse osteopenia. There are no acute osseous abnormalities. Electronically Signed: Roshan Jones MD at 20:03 EDT , Pelvis X-Ray 01/02/24 19:20 IMPRESSION: No evidence of displaced pelvic fracture. Electronically Signed: Roshan Jones MD at 20:08 EDT , Discharge Plan Triage Chief Complaint: Fall ED Provider: Kartik March Dx/Rx/DC Orders Clinical Impression: Fall, Acute lumbar myofascial strain, COVID-19 Instructions: ED Back Sprain/Strain Prescriptions: No Action Novolin R Regular U-100 Insuln 100 unit/mL solution 4 unit subcut Patient Comments: INJECT 4 UNITS SUBCUTANEOUSLY ONCE DAILY WITH THE LARGEST MEAL Saccharomyces boulardii [Daily Probiotic (S. boulardii)] 250 mg capsule 250 mg PO DAILY pioglitazone [Actos] 45 mg tablet 45 mg PO DAILY multivitamin [Daily Multiple] 1 EACH tablet 1 ea PO DAILY losartan 50 MG tablet 75 mg PO DAILY insulin glargine [Lantus U-100 Insulin] 100 UNIT/ML solution 18 unit subcut QHS Patient Comments: 25 with taking steroid calcium carbonate 600 MG tablet 600 mg PO QHS pravastatin 10 MG tablet 10 mg PO QHS cyanocobalamin (vitamin B-12) 500 MCG tablet 1 tab PO DAILY@0800 glimepiride 4 MG tablet 4 mg PO BID omeprazole 20 MG capsule,delayed release(DR/EC) 20 mg PO DAILY brimonidine 1 DROP bottle 1 drp Left Eye BID omega-3 fatty acids-fish oil [Fish Oil] 1 EACH capsule 1 ea PO DAILY ascorbic acid (vitamin C) 500 MG capsule 500 mg PO DAILY magnesium oxide 400 MG tablet 400 mg PO QHS Cholecalciferol (Vitamin D3) [Vitamin D3] 5,000 UNIT capsule 5,000 unit PO DAILY cyclobenzaprine 5 mg tablet 5 mg PO BID PRN (Reason: muscle spasm) Qty: 10 0RF hydrocodone-acetaminophen [hydrocodone-acetaminophen] 5-325 mg tablet 1 tab PO Q6H PRN (Reason: pain) 3 Days Qty: 10 0RF Primary Care Provider: Marilee Jiang Referrals: Marilee Jiang DO [Primary Care Provider] - 1 Week if not improving Print Language: Latvian Disposition Disposition: Home, Self Care
--- NOTE | 2024-01-02 19:20 | RAD_ITS ---
EXAM: XR CHEST, 1 VIEW CLINICAL INDICATION: cough TECHNIQUE: Frontal view of the chest. COMPARISON: No relevant prior studies available. FINDINGS: LUNGS AND PLEURAL SPACES: Unremarkable. No consolidation or edema. No pneumothorax. No effusion. HEART: Unremarkable. Cardiac silhouette not enlarged. MEDIASTINUM: Central airways and mediastinal contour are unremarkable. BONES/JOINTS: Unremarkable. No acute fracture. SOFT TISSUES: Unremarkable. RAD/Chest 1 View (Portable) IMPRESSION: No radiographic evidence of acute cardiopulmonary disease. Electronically Signed: Roshan Jones MD at 20:07 EDT ,
--- NOTE | 2024-01-02 19:20 | RAD_ITS ---
EXAM: XR PELVIS, 1 OR 2 VIEWS CLINICAL INDICATION: fall injury TECHNIQUE: Frontal view of the pelvis. COMPARISON: No relevant prior studies available. FINDINGS: BONES/JOINTS: Unremarkable. No displaced fracture. No destructive or sclerotic lesions. Note that overlapping bowel shadows may however obscure fine detail. Sacroiliac joints are unremarkable. No widening of the pubic symphysis. The articular structures are unremarkable. SOFT TISSUES: Unremarkable. No soft tissue swelling or gas. RAD/Pelvis 1 or 2 Views IMPRESSION: No evidence of displaced pelvic fracture. Electronically Signed: Roshan Jones MD at 20:08 EDT ,
--- NOTE | 2024-01-02 19:20 | CT_ITS ---
EXAM: CT LUMBAR SPINE WITHOUT INTRAVENOUS CONTRAST CLINICAL INDICATION: fall pain TECHNIQUE: Helically acquired images were obtained of the lumbar spine without intravenous contrast. 2D reformats were reviewed. This CT exam was performed using one or more of the following dose reduction techniques: automated exposure control, adjustment of the mA and/or kV according to patient size, and/or use of iterative reconstruction technique. COMPARISON: 06/01/2023 FINDINGS: VERTEBRAE: Bones are diffusely osteopenic. There are no fractures identified. No traumatic subluxation. No discrete lytic or blastic abnormality. DISCS/SPINAL CANAL/NEURAL FORAMINA: Unremarkable. Disc heights are preserved. No critical stenosis. VASCULATURE: Visualized abdominal aorta is not dilated. LYMPH NODES: Unremarkable. No retroperitoneal adenopathy. CT/Spine Lumbar without Contrast IMPRESSION: Diffuse osteopenia. There are no acute osseous abnormalities. Electronically Signed: Roshan Jones MD at 20:03 EDT ,
[2024-01-02 19:22] LABS: Absolute Neutrophil Count 5.2 X10^3/uL (2.0-7.7); Basophil# 0.05 X10^3/uL; Basophil% 0.5 % (0-1); Eosinophil# 0.01 X10^3/uL; Eosinophils% 0.1 % (0-5); Hematocrit 34.6 % (37-47); Hemoglobin 11.2 g/dL (12.0-15.0); Lymphocyte % 32.3 % (19-41); Mean Corp Hgb Conc 32.4 g/dL (32-36); Mean Corpuscular Hgb 26.2 pg (27.0-32.0); Mean Platelet Vol. 9.6 fl (6.2-12.0); Monocyte# 1.04 X10^3/uL; Monocyte% 10.8 % (0-10); NRBC Flagged by Analyzer 0 % (0-5); Neutrophil # 5.22 X10^3/uL (2.7-7.7); Neutrophil % 54.4 % (47-70); Platelet Count 250 K/mm3 (150-450); RBC Distribution Width CV 16.6 % (11.6-14.6); RBC Distribution Width SD 48.9 fl (35.1-43.9); Red Blood Count 4.27 M/mm3 (4.2-5.4); White Blood Count 9.6 K/mm3 (4.4-11.0)
[2024-01-02 19:32] LABS: AST(SGOT) 27 U/L (15-37); Alanine Aminotransfer ALT/SGPT 26 U/L (13-56); Albumin, Serum 3.3 g/dL (3.2-5.0); Alkaline Phosphatase 48 U/L (45-117); Anion Gap 13 (5-15); BUN 10 mg/dL (7-18); BUN/Creat Ratio 15.6 RATIO (10-20); Bilirubin, Direct 0.18 mg/dL (0.00-0.30); Calcium,Total 9.2 mg/dL (8.5-10.1); Chloride 100 mmol/L (98-107); Creatinine, Serum 0.64 mg/dL (0.55-1.02); EST Glomerular Filtration Rate 94 mL/min (>60); Est Glom Filt Rate - Afr Amer 114 mL/min (>60); Estimated Creatinine Clearance 63.27 ml/min; Globulin 4.3 g/dL (2.2-4.2); Glucose 185 mg/dL (74-106); Potassium 3.7 mmol/L (3.5-5.1); Protein, Total 7.6 g/dL (6.4-8.2); Sodium Level 135 mmol/L (136-145)
[2024-01-02 20:01] VITALS: BP 150/64; PULSE 85; RESP 18; O2SAT 98
[2024-01-02] MEDS: 0.9% Normal Saline (1000mL) 1,000 ML 1000 ML IV (20:26)
[2024-01-02] MEDS: Acetaminophen 500 MG Tablet 1000 MG PO (20:26)
[2024-01-02 20:34] LABS: Mucous, Urine 0 SEEN /hpf (<or=2+)
[2024-01-02 20:46] LABS: Color, Urine Yellow (Yellow); Glucose, Dipstick Normal (Normal); Ketone-Dipstick 15 mg/dl (Negative); Leukocyte Esterase-Dipstick Negative /ul (Negative); Nitrite-Dipstick Negative (Negative); Occult Blood-Urine 25 /ul (Negative); Protein-Dipstick 100 mg/dl (Negative); Specific Gravity, Urine 1.015 (1.002-1.030); Urine Bilirubin Dipstick Negative (Negative); Urine Clarity Clear (Clear); Urine Urobilinogen Normal (Normal)
[2024-01-02 21:16] LABS: Squamous Epithelial Cells - UA 0-5 SEEN /hpf (5-10)
[2024-01-02 21:17] LABS: Bacteria 1+ /hpf (None Seen); White Blood Cells 0-5 SEEN /hpf (0-5)
[2024-01-02 21:18] LABS: Red Blood Cells-Urine 0-5 SEEN /hpf (0-5)
[2024-01-02 22:00] VITALS: BP 154/78; PULSE 92; RESP 26; O2SAT 97
[2024-01-02 22:22] VITALS: BP 145/84; PULSE 82; RESP 19; TEMP 36.4; O2SAT 97
== END 2024-01-02 22:29 | disposition home or self-care (01) ==
PROVIDERS: Emergency Provider Emergency Medicine; PCP Family Medicine; Visit Provider Emergency Medicine
DX: S39.012A Strain of muscle, fascia and tendon of lower back, initial encounter (principal); E11.43 Type 2 diabetes mellitus with diabetic autonomic (poly)neuropathy; U07.1 COVID-19; Z87.891 Personal history of nicotine dependence; K31.84 Gastroparesis; J45.909 Unspecified asthma, uncomplicated; R19.7 Diarrhea, unspecified; E66.9 Obesity, unspecified; W19.XXXA Unspecified fall, initial encounter
CPT/HCPCS: 71045; 72131; 72170; 80048; 80076; 81001; 85025; 87631; 96360; 96361; 99284; J7030; A4216

== ENCOUNTER → 2024-01-31 | Outpatient (CLI) | payer MEDICARE, OTHER, SELFPAY ==
[2024-01-31 18:28] LABS: Anion Gap 6 (5-15); BUN 17 mg/dL (7-18); BUN/Creat Ratio 26.4 RATIO (10-20); Calcium,Total 9.8 mg/dL (8.5-10.1); Chloride 102 mmol/L (98-107); Creatinine, Serum 0.64 mg/dL (0.55-1.02); EST Glomerular Filtration Rate 93 mL/min (>60); Est Glom Filt Rate - Afr Amer 113 mL/min (>60); Glucose 198 mg/dL (74-106); Potassium 4.1 mmol/L (3.5-5.1); Sodium Level 134 mmol/L (136-145)
== END | disposition home or self-care (01) ==
PROVIDERS: PCP Family Medicine; Referring Provider Urology; Visit Provider Urology
DX: N39.44 Nocturnal enuresis (principal)
CPT/HCPCS: 36415; 80048

== ENCOUNTER → 2024-04-15 | Outpatient (CLI) | payer MEDICARE, OTHER, SELFPAY ==
--- NOTE | 2024-04-15 10:42 | BI_ITS ---
MAMMOGRAPHY - BILATERAL SCREENING 3-D TOMOSYNTHESIS REASON FOR EXAM: Female, 83 years old. SCREENING PERTINENT HISTORY: No significant family history. TECHNIQUE: 2-D mammograms and 3-D Tomosynthesis of the breast (s) were performed. CAD was performed. COMPARISON: 04/03/2023 FINDINGS: The breast composition is composed of scattered fibroglandular density. Scattered benign calcifications are seen. No dense spiculated masses or suspicious microcalcifications are identified. No architectural distortion is identified. There is no skin thickening or retraction. There has been no significant change since the prior study. No change in the 1 cm oval circumscribed equal density mass in the upper-outer quadrant left breast consistent with an intramammary lymph node. No change in bilateral benign vascular calcifications which can be associated with coronary artery disease. BI/SCRN MAMM (CAD)W/DIONICIO BILAT IMPRESSION: No mammographic signs of malignancy. Routine yearly mammograms recommended. ASSESSMENT CATEGORY: BIRADS Category 2: Benign. A letter regarding these results will be sent to the patient by the facility within 30 days. FOLLOW UP RECOMMENDATION: Yearly follow up mammogram recommended. (A) Approximately 10% of breast cancers are not detected by mammography. A normal mammogram should not delay biopsy of a clinically suspicious abnormality. Electronically Signed: Raoul Venegas MD at 15:40 EST ,
== END | disposition home or self-care (01) ==
LOC: OPBI 10:40
PROVIDERS: PCP Family Medicine; Referring Provider Family Medicine; Visit Provider Family Medicine
DX: Z12.31 Encounter for screening mammogram for malignant neoplasm of breast (principal)
CPT/HCPCS: 77063; 77067

== ENCOUNTER 2024-04-21 11:21 | Outpatient (CLI) | payer MEDICARE, OTHER, SELFPAY ==
[2024-04-21 15:14] LABS: Absolute Lymphocyte Count 2.24 X10^3/uL (0.83-4.51); Absolute Neutrophil Count 4.3 X10^3/uL (2.0-7.7); Basophil# 0.06 X10^3/uL; Basophil% 0.8 % (0-1); Eosinophil# 0.27 X10^3/uL; Eosinophils% 3.4 % (0-5); Hematocrit 36.7 % (37-47); Hemoglobin 11.3 g/dL (12.0-15.0); Lymphocyte # 2.24 X10^3/ul (0.83-4.51); Lymphocyte % 28.6 % (19-41); Mean Corp Hgb Conc 30.8 g/dL (32-36); Mean Corpuscular Hgb 24.5 pg (27.0-32.0); Mean Corpuscular Volume 79.6 fL (81-99); Mean Platelet Vol. 8.9 fl (6.2-12.0); Monocyte# 0.89 X10^3/uL; Monocyte% 11.4 % (0-10); NRBC Flagged by Analyzer 0 % (0-5); Neutrophil # 4.34 X10^3/uL (2.7-7.7); Neutrophil % 55.3 % (47-70); Platelet Count 420 K/mm3 (150-450); Red Blood Count 4.61 M/mm3 (4.2-5.4); White Blood Count 7.8 K/mm3 (4.4-11.0)
[2024-04-21 15:42] LABS: ALB/GLOB Ratio 0.7 RATIO (0.9-2.4); AST(SGOT) 27 U/L (15-37); Alanine Aminotransfer ALT/SGPT 22 U/L (13-56); Albumin, Serum 3.3 g/dL (3.2-5.0); Alkaline Phosphatase 62 U/L (45-117); Anion Gap 8 (5-15); BUN 12 mg/dL (7-18); BUN/Creat Ratio 19.1 RATIO (10-20); Calcium,Total 10.6 mg/dL (8.5-10.1); Chloride 99 mmol/L (98-107); Creatinine, Serum 0.63 mg/dL (0.55-1.02); EST Glomerular Filtration Rate 96 mL/min (>60); Est Glom Filt Rate - Afr Amer 116 mL/min (>60); Ferritin 28 ng/mL (8-252); Glucose 101 mg/dL (74-106); Iron 31 ug/dL (50-170); Lipase 28 U/L (13-75); Potassium 3.8 mmol/L (3.5-5.1); Protein, Total 8.3 g/dL (6.4-8.2); Sodium Level 136 mmol/L (136-145)
== END 2024-04-21 23:59 | disposition home or self-care (01) ==
LOC: MTLAB 11:22
PROVIDERS: PCP Family Medicine; Referring Provider Family Medicine; Visit Provider Family Medicine
DX: Z51.81 Encounter for therapeutic drug level monitoring (principal); E11.9 Type 2 diabetes mellitus without complications; R10.9 Unspecified abdominal pain; R53.83 Other fatigue; R53.1 Weakness
CPT/HCPCS: 36415; 80053; 82728; 83540; 83690; 85025

== ENCOUNTER → 2024-04-24 | Outpatient (CLI) | payer MEDICARE, OTHER, SELFPAY ==
[2024-04-24 15:51] LABS: Ionized Calcium Order ORDER TUBE
[2024-04-24 17:58] LABS: Vitamin D,25 Hydroxy 74.5 ng/mL
[2024-04-24 18:06] LABS: PTHIN 7.9 pg/mL (18.4-80.1)
[2024-04-24 19:29] LABS: Ionized Calcium 1.42 mmol/L (1.09-1.30)
[2024-04-27 20:07] LABS: Vitamin D 1,25-Dihydroxy 93.6 pg/mL (24.8-81.5)
[2024-04-30 16:08] LABS: PROEL- A/G Ratio 0.8 (0.7-1.7); PROEL- Albumin 3.1 g/dL (2.9-4.4); PROEL- Alpha-1 Globulin 0.3 g/dL (0.0-0.4); PROEL- Beta Globulin 1.2 g/dL (0.7-1.3); PROEL- Gamma Globulin 1.5 g/dL (0.4-1.8); PROEL- TOTAL PROTEIN 7.1 g/dL (6.0-8.5); PROEL-M-Spike Not Observed g/dL (Not Observed)
== END | disposition home or self-care (01) ==
PROVIDERS: PCP Family Medicine; Referring Provider Family Medicine; Visit Provider Family Medicine
DX: E83.52 Hypercalcemia (principal); R77.8 Other specified abnormalities of plasma proteins
CPT/HCPCS: 36415; 82306; 82330; 82652; 83970; 84165

== ENCOUNTER → 2024-05-05 | Outpatient (CLI) | payer MEDICARE, OTHER, SELFPAY ==
[2024-05-05 18:46] LABS: Color, Urine Amber (Yellow); Glucose, Dipstick 100 mg/dl (Normal); Ketone-Dipstick Negative (Negative); Leukocyte Esterase-Dipstick 25 /ul (Negative); Nitrite-Dipstick Negative (Negative); Occult Blood-Urine 250 /ul (Negative); Protein-Dipstick 30 mg/dl (Negative); Specific Gravity, Urine 1.015 (1.002-1.030); Urine Bilirubin Dipstick Negative (Negative); Urine Clarity Sl. Cloudy (Clear); Urine Urobilinogen Normal (Normal); Urine pH 6.5 (5.0 - 8.0)
[2024-05-07 17:07] LABS: PROEL- A/G Ratio 0.8 (0.7-1.7); PROEL- Albumin 3.2 g/dL (2.9-4.4); PROEL- Alpha-1 Globulin 0.3 g/dL (0.0-0.4); PROEL- Alpha-2 Globulin 0.9 g/dL (0.4-1.0); PROEL- Beta Globulin 1.2 g/dL (0.7-1.3); PROEL- Gamma Globulin 1.4 g/dL (0.4-1.8); PROEL- Globulin, Total 3.9 g/dL (2.2-3.9); PROEL- TOTAL PROTEIN 7.1 g/dL (6.0-8.5); PROEL-M-Spike Not Observed g/dL (Not Observed)
== END | disposition home or self-care (01) ==
LOC: MTLAB 16:00
PROVIDERS: PCP Family Medicine; Referring Provider Family Medicine; Visit Provider Family Medicine
DX: E83.52 Hypercalcemia (principal); R77.8 Other specified abnormalities of plasma proteins; R30.0 Dysuria; R31.9 Hematuria, unspecified

== ENCOUNTER → 2024-05-12 | Outpatient (CLI) | payer MEDICARE, OTHER, SELFPAY ==
--- NOTE | 2024-05-12 12:30 | ECHOD_ITS ---
Reason For Study: SOB Procedure This was a 2D Doppler, Color Flow transthoracic echocardiogram. Exam performed in department. Left Ventricle Normal LV size. The estimated ejection fraction is 57 %. Stage 1 diastolic dysfunction. No regional wall motion abnormalities noted. Right Ventricle Normal RV size. Normal systolic function. Atria The left atrium is mildly enlarged. Normal right atrium. Mitral Valve There is mild to moderate mitral annular calcification. Mild (1+) mitral valve insufficiency. Tricuspid Valve Normal tricuspid valve. Mild (1+) tricuspid valve insufficiency. Pulmonary artery systolic pressure is 30 mmHg. Aortic Valve Trisinus/trileaflet aortic valve. Mild focal aortic valve calcification. Peak aortic valve gradient 47 mmHg. Mean aortic valve gradient 24 mmHg. Pulmonic Valve Normal pulmonic valve. Great Vessels Calcified aortic root. The pulmonary artery is normal size. Inferior vena cava collapse with respiration. Pericardium/Pleural No pericardial effusion. MMode/2D Measurements & Calculations LVIDd: 4.8 cm IVSd: 1.1 cm LVOT diam: 2.0 cm LVIDs: 3.0 cm LVPWd: 0.98 cm LVOT area: 3.1 cm2 RVDd: 4.0 cm FS: 38.6 % Ao root diam: 3.4 cm LAV(MOD-bp): 72.2 ml LVAd ap4: 27.4 cm2 ACS: 0.77 cm LAV(MOD-bp) Indexed: 35.9 ml/m2 LVLd ap4: 7.5 cm LAV(MOD-sp2): 78.5 ml EDV(MOD-sp4): 79.1 ml LAV(MOD-sp4): 63.6 ml EDV(sp4-el): 85.2 ml LVAs ap4: 17.0 cm2 LVLs ap4: 6.8 cm ESV(MOD-sp4): 37.0 ml ESV(sp4-el): 36.2 ml EF(MOD-sp4): 53.2 % EF(sp4-el): 57.5 % SV(MOD-sp4): 42.1 ml SV(sp4-el): 48.9 ml LA A4 area: 21.7 cm2 SI(MOD-sp4): 20.9 ml/m2 LA dimension(2D): 4.3 cm RA A4 area: 19.7 cm2 TAPSE: 2.0 cm Time Measurements MV dec time: 0.24 sec Doppler Measurements & Calculations MV E max lars: 102.5 cm/sec Lat Peak E' Lars: 8.4 cm/sec Med Peak E' Lars: 6.0 cm/sec MV A max lars: 110.2 cm/sec E/E' lat: 12.2 E/E' med: 17.2 MV E/A: 0.93 MV V2 max: 124.0 cm/sec MV P1/2t max lars: 108.7 cm/sec Ao V2 max: 341.5 cm/sec MV max P.1 mmHg MV P1/2t: 77.3 msec Ao max P.7 mmHg MV V2 mean: 71.6 cm/sec Ao V2 mean: 223.1 cm/sec MV mean P.4 mmHg MV dec slope: 411.8 cm/sec2 Ao mean P.5 mmHg MV V2 VTI: 35.8 cm MVA(P1/2t): 2.8 cm2 Ao V2 VTI: 85.1 cm AV (velocity ratio): 0.25 MVA(VTI): 1.8 cm2 ÓSCAR(I,D): 0.77 cm2 ÓSCAR(V,D): 0.89 cm2 LV V1 max: 98.6 cm/sec SV(LVOT): 65.7 ml PA V2 max: 93.7 cm/sec LV V1 max P.9 mmHg PA V2 mean: 64.6 cm/sec LV V1 mean P.1 mmHg LV V1 mean: 66.9 cm/sec LV V1 VTI: 21.2 cm TR max lars: 262.5 cm/sec TR max P.6 mmHg ECHO/Echo Complete Interpretation Summary Normal LV size. The estimated ejection fraction is 57 %. No regional wall motion abnormalities noted. The left atrium is mildly enlarged. Stage 1 diastolic dysfunction. Mild focal aortic valve calcification. Mean aortic valve gradient 24 mmHg. Pulmonary artery systolic pressure is 30 mmHg. Ordering Physician: Marilee Jiang Referring Physician: Marilee Jiang Performed By: Joe Fountain RCS
== END | disposition home or self-care (01) ==
LOC: CVS 12:28
PROVIDERS: PCP Family Medicine; Referring Provider Family Medicine; Visit Provider Family Medicine
DX: R06.02 Shortness of breath (principal); R60.9 Edema, unspecified
CPT/HCPCS: 93306

== ENCOUNTER → 2024-05-13 | Outpatient (CLI) | payer MEDICARE, OTHER, SELFPAY ==
--- NOTE | 2024-05-13 12:24 | CT_ITS ---
HISTORY: ABD PAIN,WEIGHTLOSS. TECHNIQUE: Helically acquired images were obtained of the abdomen and pelvis after the intravenous administration of 100 mL Isovue-370. A radiation dose optimization technique was used for this scan. 448 images. COMPARISON: 10/14/2020. FINDINGS: LOWER CHEST: Minimal atelectasis in the lower lobes. Coronary artery calcification present. BOWEL: Mild hiatal hernia. Bowel nondilated. Appendix not visualized. No focal pericolonic inflammatory change observed. PERITONEUM: No significant ascites. Unchanged mild mesenteric panniculitis. LIVER: No enhancing mass. Fatty infiltration. GALLBLADDER/BILIARY TREE: Cholecystectomy with chronic mild biliary ductal dilatation. SPLEEN: Multiple hypodensities again seen. PANCREAS/ADRENAL GLANDS: Unremarkable. KIDNEYS: Mild left hydronephrosis and renal edema secondary to a 4 mm proximal ureteral calculus. 4 mm right lower pole calculus without hydronephrosis. Stable bilateral subcentimeter cysts which do not require follow-up. VESSELS: No abdominal aortic aneurysm. Advanced atherosclerosis of the branches of the abdominal aorta. PELVIC ORGANS: Hysterectomy. ABDOMINAL WALL: Unchanged appearance of anterior mesh repair. BONES: Old right lower rib fractures. Moderate L3 compression fracture, new from prior. Degenerative change and osteopenia. CT/Abdomen/Pelvis WITH Contrast IMPRESSION: Mild left hydronephrosis secondary to a 4 mm proximal ureteral calculus. 4 mm nonobstructing right renal calculus. Moderate L3 compression fracture, likely subacute. Several chronic findings as above. Electronically Signed: Marcia Landis MD at 15:33 EST ,
== END | disposition home or self-care (01) ==
LOC: CVS 12:22 → CT 12:23
PROVIDERS: PCP Family Medicine; Referring Provider Family Medicine; Visit Provider Family Medicine
DX: R10.9 Unspecified abdominal pain (principal); R63.4 Abnormal weight loss
CPT/HCPCS: 74177; Q9967

== ENCOUNTER → 2024-06-03 | Outpatient (CLI) | payer MEDICARE, OTHER, SELFPAY ==
[2024-06-03 18:53] LABS: Anion Gap 8 (5-15); BUN 12 mg/dL (7-18); BUN/Creat Ratio 20.4 RATIO (10-20); Chloride 101 mmol/L (98-107); Creatinine, Serum 0.59 mg/dL (0.55-1.02); EST Glomerular Filtration Rate 104 mL/min (>60); Est Glom Filt Rate - Afr Amer 126 mL/min (>60); Glucose 150 mg/dL (74-106); Potassium 3.3 mmol/L (3.5-5.1); Sodium Level 138 mmol/L (136-145)
== END | disposition home or self-care (01) ==
LOC: MTLAB 16:37
PROVIDERS: PCP Family Medicine; Referring Provider Urology; Visit Provider Urology
DX: N39.44 Nocturnal enuresis (principal)
CPT/HCPCS: 36415; 80048

== ENCOUNTER → 2024-06-17 | Outpatient (CLI) | payer MEDICARE, OTHER, SELFPAY ==
--- NOTE | 2024-06-17 16:20 | CT_ITS ---
PROCEDURE: ABDOMEN/PELVIS WITHOUT CONT REASON FOR EXAM: History of left ureteral calculus. TECHNIQUE: Abdomen and pelvis CT without intravenous contrast. No oral contrast. COMPARISON: Comparison is made with prior study dated May 13, 2024. FINDINGS: Noncontrast technique limits evaluation of the abdominal and pelvic viscera. Lung bases: Stable minimal increased markings at the lung bases suggestive of mild scarring and/or atelectasis. Coronary artery calcification. Liver: Unremarkable. Gallbladder: Surgically absent. Spleen: Small calcified splenic granulomas. Pancreas: Unremarkable. Adrenals: Unremarkable. Kidneys: There is a 4.5 mm nonobstructive calculus in the central calyx of the right kidney. A punctate calcification is seen in the lower pole calyx of the right kidney. The previously seen left ureteral calculus is not seen at this time. Bladder: There is evidence of a cystocele. Reproductive Organs: Prior hysterectomy. Adnexal regions are unremarkable. Bowel: Unremarkable. Appendix: Prior appendectomy. Lymph nodes: No suspicious lymph node enlargement. Vasculature: Atherosclerotic calcification of the abdominal aorta and the major visceral branches. Peritoneum / Retroperitoneum: No ascites. No free air. Once again, there is evidence of increased markings within the omental fat in the root of the mesentery. This is nonspecific and may represent what we call a ailyn omentum. Prior anterior ventral hernia repair with a mesh. Bones: Degenerative changes of the spine. Almost complete collapse of the L3 vertebrae. CT/Abdomen/Pelvis without Cont IMPRESSION: The previously seen left ureteral calculus is not seen. Nonobstructive right intrarenal calculi. Stable ailyn omentum with increased markings in the omental fat in the root of the mesentery. One or more dose reduction techniques were used (e.g., Automated exposure contr ol, adjustment of the mA and/or kV according to patient size, use of iterative reconstruction technique). Reading Location: [facility]
== END | disposition home or self-care (01) ==
LOC: CT 16:17
PROVIDERS: PCP Family Medicine; Referring Provider Urology; Visit Provider Urology
DX: N20.1 Calculus of ureter (principal); R10.30 Lower abdominal pain, unspecified
CPT/HCPCS: 74176

== ENCOUNTER → 2024-07-16 | Outpatient (CLI) | payer MEDICARE, OTHER, SELFPAY ==
[2024-07-16 17:53] LABS: Absolute Lymphocyte Count 2.02 X10^3/uL (0.83-4.51); Absolute Neutrophil Count 2.8 X10^3/uL (2.0-7.7); Basophil# 0.04 X10^3/uL; Basophil% 0.7 % (0-1); Eosinophil# 0.23 X10^3/uL; Eosinophils% 3.9 % (0-5); Hematocrit 34.9 % (37-47); Hemoglobin 11.2 g/dL (12.0-15.0); Lymphocyte # 2.02 X10^3/ul (0.83-4.51); Lymphocyte % 34.1 % (19-41); Mean Corp Hgb Conc 32.1 g/dL (32-36); Mean Corpuscular Hgb 25.5 pg (27.0-32.0); Mean Corpuscular Volume 79.3 fL (81-99); Mean Platelet Vol. 9.3 fl (6.2-12.0); Monocyte# 0.86 X10^3/uL; Monocyte% 14.5 % (0-10); NRBC Flagged by Analyzer 0 % (0-5); Neutrophil # 2.75 X10^3/uL (2.7-7.7); Neutrophil % 46.3 % (47-70); POSITIVE MORPHOLOGY YES; Platelet Count 303 K/mm3 (150-450); RBC Distribution Width CV 17.4 % (11.6-14.6); White Blood Count 5.9 K/mm3 (4.4-11.0)
[2024-07-16 19:09] LABS: AST(SGOT) 31 U/L (<=31); Alanine Aminotransfer ALT/SGPT 20 U/L (<=34); Albumin, Serum 3.9 g/dL (3.4-4.8); Alkaline Phosphatase 72 U/L (35-104); Anion Gap 10 (5-15); BUN 16 mg/dL (4-19); BUN/Creat Ratio 29.9 RATIO (10-20); Calcium,Total 9.5 mg/dL (7.6-11.0); Carbon Dioxide 25.2 mmol/L (21.0-32.0); Chloride 98 mmol/L (98-108); Creatinine, Serum 0.53 mg/dL (0.70-1.20); EST Glomerular Filtration Rate 92 (>60); Free T3 2.8 pg/mL (2.18-3.98); Globulin 3.8 g/dL (2.2-4.2); Glucose 110 mg/dL (70-99); Potassium 4.5 mmol/L (3.3-5.1); Protein, Total 7.6 g/dL (5.9-8.4); Sodium Level 133 mmol/L (133-145); Total Bilirubin 0.28 mg/dL (0.00-1.30)
[2024-07-16 19:32] LABS: Atypical Lymphocyte 2+ %; Differential Indicated SCAN CRITERIA MET
[2024-07-21 12:08] LABS: Vitamin D 1,25-Dihydroxy 70.5 pg/mL (24.8-81.5)
== END | disposition home or self-care (01) ==
LOC: BFHLAB 15:30
PROVIDERS: PCP Family Medicine; Referring Provider Family Medicine; Visit Provider Family Medicine
DX: E83.52 Hypercalcemia (principal); R31.9 Hematuria, unspecified; Z51.81 Encounter for therapeutic drug level monitoring
CPT/HCPCS: 36415; 80053; 82652; 84439; 84443; 84481; 85025

== ENCOUNTER 2024-09-14 13:11 | Emergency (ER) | payer MEDICARE, OTHER, SELFPAY ==
[2024-09-14 13:11] VITALS: BP 207/65; PULSE 74; RESP 14; TEMP 36.6; O2SAT 100
--- NOTE | 2024-09-14 13:39 | ED.VIS.BACK ---
HPI History of Present Illness Chief Complaint: Back Informant: patient Onset/Context/Timing Onset: Weeks (1) Context: Gradual Onset Timing: Continuous Quality: - (Cramping) Location: Lumbar Worsened by: improves with Movement Relieved by: Nothing Associated Symptoms Associated Symptoms: Abdominal Pain; Negative for Numbness, Tingling, Radiation to Right Leg, Radiation to Left Leg, Fever, Dysuria, Unable to Ambulate, Unable to Transfer, Urinary Retention, Urinary Incontinence, Constipation or Fecal Incontinence Narrative Narrative: Patient presents with low back pain that has been getting worse over the past week. Patient states it is gradually getting worse. Patient denies any trauma or injury. Patient states her pain is over her lower lumbar area. Patient describes it as cramping. Patient states it is worse with movement such as standing. Patient states nothing seems to help with it. Patient admits to some pain into her abdomen. Patient denies any nausea or vomiting. Patient denies any bowel or bladder changes. Patient denies any saddle anesthesia. [facility] Medical History Diarrhea Diabetes Gastroparesis Unsteady gait Shortness of breath Asthma Home Medications ?Medication ?Instructions ?Recorded ?Last Taken ?Type Cholecalciferol (Vitamin D3) 5,000 unit PO DAILY supplement 11/08/17 11/08/17 08:00 History [Vitamin D3] ascorbic acid (vitamin C) 500 mg 500 mg PO DAILY supplement 11/08/17 11/07/17 20:00 History capsule brimonidine 0.15 % eye drops 1 drp BID damaged eye 11/08/17 11/08/17 08:00 History calcium carbonate 600 mg PO QHS supplement 11/08/17 11/07/17 20:00 History cyanocobalamin (vitamin B-12) 500 1 tab PO DAILY@0800 supplement 11/08/17 11/08/17 08:00 History mcg tablet glimepiride 4 mg tablet 4 mg PO BID diabetes 11/08/17 11/08/17 08:00 History insulin glargine 100 unit/mL 18 unit subcut QHS diabetes 11/08/17 11/07/17 20:00 History subcutaneous solution (Lantus U-100 Insulin) losartan 50 mg tablet 75 mg PO DAILY blood pressure 11/08/17 11/08/17 08:00 History multivitamin (Daily Multiple 1 ea PO DAILY supplement 11/08/17 11/08/17 08:00 History tablet) omega-3 fatty acids-fish oil 340 1 ea PO DAILY supplement 11/08/17 11/08/17 08:00 History mg-1,000 mg capsule (Fish Oil) omeprazole 20 mg capsule,delayed 20 mg PO DAILY 11/08/17 11/08/17 08:00 History release pravastatin 10 mg tablet 10 mg PO QHS cholesterol 11/08/17 11/07/17 20:00 History Saccharomyces boulardii 250 mg 250 mg PO DAILY 11/30/20 Unknown History capsule (Daily Probiotic (S. boulardii)) insulin regular human 100 unit/mL 4 unit subcut 11/30/20 Unknown History injection solution pioglitazone 45 mg tablet (Actos) 45 mg PO DAILY 10/27/21 Unknown History cyclobenzaprine 5 mg tablet 5 mg PO BID PRN muscle spasm #10 08/03/23 Unknown Rx tabs metformin 500 mg tablet 500 mg PO QDAY 08/28/24 Unknown History tramadol 50 mg tablet 50 mg PO Q4H PRN PRN Pain 3 days 09/14/24 Unknown Rx #20 tabs Allergy/AdvReac Type Severity Reaction Status Date / Time levofloxacin (From Levaquin) Allergy Mild rash Verified 09/14/24 13:11 oxycodone Allergy Mild Swelling Verified 09/14/24 13:11 aspirin Allergy Rash Verified 09/14/24 13:11 codeine Allergy Rash Verified 09/14/24 13:11 NSAIDS (Non-Steroidal Allergy Rash Verified 09/14/24 13:11 Anti-Inflamma Penicillins Allergy Rash Verified 09/14/24 13:11 solifenacin (From Vesicare) Allergy Unknown Verified 09/14/24 13:11 Sulfa (Sulfonamide Allergy Rash Verified 09/14/24 13:11 Antibiotics) Family History Sister Breast cancer Mother CVA (cerebral vascular accident) Hypertension Father Diabetes Heart disease Surgical History History of knee replacement History of hysterectomy History of colonoscopy History of left inguinal hernia repair History of left inguinal hernia repair History of left inguinal hernia repair Social History household members: family Smoking Status: Former smoker substance use type: does not use ROS ROS ED Constitutional Constitutional ED: Denies chills or fever(s) Eyes Eyes: Denies blurry vision or change in vision ENT ENT ED: Denies rhinorrhea or sore throat Cardiovascular Cardiovascular: Denies chest pain or palpitations Respiratory/Chest Respiratory/Chest: Reports cough; Denies dyspnea Gastrointestinal Gastrointestinal: Reports abdominal pain; Denies nausea or vomiting Genitourinary Genitourinary ED: Denies dysuria or hematuria Musculoskeletal Musculoskeletal: Reports back pain; Denies neck pain Integumentary Denies abscess or rash Neurologic Neurologic: Denies headache(s) or weakness Allergic/Immunologic Allergic/Immunologic ED: Denies mouth swelling or urticaria EXAM Physical Exam Const Vital Signs: 09/14/24 13:11 Temperature 98 F Temperature Source Temporal Pulse Rate 74 Respiratory Rate 14 Blood Pressure 207/65 H Blood Pressure Mean 112 Pulse Ox 100 Oxygen Delivery Method Room Air Positive well nourished and well developed General Appearance ED: well developed HEENT Reports moist mucous membranes Neck supple and no JVD GI soft to palpation, non-tender and non-distended Back/Spine Back/Spine Narrative: There is tenderness and spasm of the left lumbar paraspinal muscles. There is mild midline tenderness. There is no bony crepitance or step-off. Range of motion was limited in all motions of the lumbar spine secondary to pain. Strength is 5/5 bilaterally in the lower extremities. There are no sensory deficits noted. Deep tendon reflexes are 2/4 bilaterally in the lower extremities. Lumbar Spine / Lower Back: ROM limited and straight leg raise negative bilaterally Extremity normal to inspection General Extremety ED: Negative for edema or tenderness General Extremity: Negative for edema Neuro oriented x3 and no sensory deficits noted Sensorium / Orientation: alert Motor Exam: strength 5/5 throughout Deep Tendon Reflexes: Rt Patellar (L4): 2+, Lt Patellar (L4): 2+, Rt Ankle (S1): 2+ and Lt Ankle (S1): 2+ Deep Tendon Reflexes Back: Rt Patellar (L4): 2+, Lt Patellar (L4): 2+, Rt Ankle (S1): 2+ and Lt Ankle (S1): 2+ Psych mental status grossly normal MDM MDM MDM Narrative Medical decision making narrative: Differential diagnosis includes compression fracture, spondylolisthesis, lumbosacral strain, and sciatica. X-rays of the lumbar spine will be obtained to assess for compression fracture and spondylolisthesis. Radiography X-Ray: LS SPine, Read by ED Physician, Read by Radiologist, No Fracture, DJD and Spurring Diagnostic Testing: Clinical Impression(s) from Imaging Studies Lumbar Spine X-Ray 09/14/24 14:05 IMPRESSION: No acute process detected. Other findings as above Reading Location: [facility] X-rays of the lumbar spine were obtained. There are 2 views. On my independent interpretation, there is no acute fracture. There is no spondylolisthesis noted. There are degenerative changes noted. There is calcification of the splenic artery. Radiologist also interpreted the x-rays and agrees. Treatment and Re-Evaluation Narrative: Patient was given a dose of tramadol here. Patient was feeling better on reevaluation. Patient was advised of her findings. Patient was instructed to use ice to her back. Patient was instructed to take tramadol as needed for pain. Patient was instructed to follow-up with her primary care physician in 5 to 7 days. Patient was instructed to return if worse in any way. Patient understood and was agreeable with the plan. All questions were answered. Discharge Plan Triage Chief Complaint: Back ED Provider: Jay Patel Dx/Rx/DC Orders Clinical Impression: Lumbosacral strain, Benign essential hypertension, Type 2 diabetes mellitus Instructions: ED Back Sprain/Strain Prescriptions: New tramadol 50 mg tablet 50 mg PO Q4H PRN PRN (Reason: Pain) 3 Days Qty: 20 0RF No Action Novolin R Regular U-100 Insuln 100 unit/mL solution 4 unit subcut Patient Comments: INJECT 4 UNITS SUBCUTANEOUSLY ONCE DAILY WITH THE LARGEST MEAL Saccharomyces boulardii [Daily Probiotic (S. boulardii)] 250 mg capsule 250 mg PO DAILY pioglitazone [Actos] 45 mg tablet 45 mg PO DAILY metformin 500 mg tablet 500 mg PO QDAY multivitamin [Daily Multiple] 1 EACH tablet 1 ea PO DAILY losartan 50 MG tablet 75 mg PO DAILY insulin glargine [Lantus U-100 Insulin] 100 UNIT/ML solution 18 unit subcut QHS Patient Comments: 25 with taking steroid calcium carbonate 600 MG tablet 600 mg PO QHS pravastatin 10 MG tablet 10 mg PO QHS cyanocobalamin (vitamin B-12) 500 MCG tablet 1 tab PO DAILY@0800 glimepiride 4 MG tablet 4 mg PO BID omeprazole 20 MG capsule,delayed release(DR/EC) 20 mg PO DAILY brimonidine 1 DROP bottle 1 drp Left Eye BID omega-3 fatty acids-fish oil [Fish Oil] 1 EACH capsule 1 ea PO DAILY ascorbic acid (vitamin C) 500 MG capsule 500 mg PO DAILY Cholecalciferol (Vitamin D3) [Vitamin D3] 5,000 UNIT capsule 5,000 unit PO DAILY cyclobenzaprine 5 mg tablet 5 mg PO BID PRN (Reason: muscle spasm) Qty: 10 0RF Primary Care Provider: Marilee Jiang Referrals: Marilee Jiang DO [Primary Care Provider] - 5-7 Days Print Language: Greek Disposition Disposition: Home, Self Care
[2024-09-14] MEDS: traMADol 50 MG Tablet PO (13:43)
--- NOTE | 2024-09-14 14:05 | RAD_ITS ---
PROCEDURE: LUMBAR SPINE 2 OR 3 VIEWS 09/14/2024 REASON FOR EXAM: INJURY/PAIN Initial encounter. TECHNIQUE: 2 view(s) of the lumbar spine COMPARISON: Abdomen/pelvis CT of June 12, 2024 FINDINGS: Vertebrae: No fractures Discs: Disc heights relatively maintained moderate endplate spondylosis. Alignment: Normal lumbar lordosis Other: No acute process identified. Dense splenic artery calcifications are present in the left upper quadrant RAD/Lumbar Spine 2 or 3 Views IMPRESSION: No acute process detected. Other findings as above Reading [facility]
[2024-09-14 15:59] VITALS: BP 165/99; PULSE 79; RESP 14; TEMP 36.6; O2SAT 98
== END 2024-09-14 16:18 | disposition home or self-care (01) ==
PROVIDERS: Emergency Provider Emergency Medicine; PCP Family Medicine; Visit Provider Emergency Medicine
DX: S39.012A Strain of muscle, fascia and tendon of lower back, initial encounter (principal); E11.43 Type 2 diabetes mellitus with diabetic autonomic (poly)neuropathy; I10 Essential (primary) hypertension; Z87.891 Personal history of nicotine dependence; R10.9 Unspecified abdominal pain; K31.84 Gastroparesis; J45.909 Unspecified asthma, uncomplicated; X58.XXXA Exposure to other specified factors, initial encounter
CPT/HCPCS: 72100; 99282

== ENCOUNTER → 2024-10-16 | Outpatient (CLI) | payer MEDICARE, OTHER, SELFPAY | END | disposition home or self-care (01) | LOC: LABSPEC 14:12 | PROVIDERS: PCP Family Medicine; Visit Provider Family Medicine | DX: R30.0 Dysuria (principal) | CPT/HCPCS: 87077; 87086; 87088; 87186 ==

== ENCOUNTER → 2024-10-31 | Outpatient (CLI) | payer MEDICARE, OTHER, SELFPAY ==
--- NOTE | 2024-10-31 09:55 | RAD_ITS ---
EXAM: Air-contrast esophagram barium swallow. CLINICAL HISTORY: Choking on solid foods. COMPARISON: None TECHNIQUE: The patient ingested barium. Fluoroscopic imaging of the esophagus was performed. Dose report: Fluoroscopy: 36 seconds. 6 mGy. FINDINGS: There is evidence of gastroesophageal reflux. No evidence of obstruction. No mass lesion is seen. The patient ingested a 12 mm tablet the barium without any difficulty. RAD/Esophagus Dual Contrast IMPRESSION: Gastroesophageal reflux. Reading Location: [facility]
--- OUTSIDE RECORDS SUMMARY | 2024-10-31 17:42 | XMS RPT_ITS | CCD ---
Author Organization [facility] Care Team Providers Care Cardio Tech Name Role Phone Dr. Marilee Jiang Primary Care Provider Dr. Marilee Jiang Referring Provider Ranjit ORTHOPAEDIC NURSE, ORTHOPAEDIC NURSE-C Eloisa Holman Attending Provider [phone] Dr. Marilee Jiang Primary Care Provider Dr. Vamsi Yost Attending Provider Dr. aMrilee Jiang Referring Provider Ranjit ORTHOPAEDIC NURSE, ORTHOPAEDIC NURSE-C Eloisa Holman Attending Provider [phone] Dr. Marilee Jiang Primary Care Provider Dr. Marilee Jiang Referring Provider Dr. Darryl Lackey Attending Provider [phone] Dr. Marilee Jiang DO Primary Care Provider [phone] Marilee Jiang DO Attending Provider Dr. Marilee Jiang DO Referring Provider Dr. Todd Lobo MD Attending Provider Dr. Gem Gamboa MD Attending Provider [phone] [facility], Dr. Rabago Referring Provider Dr. Marilee Jiang DO Primary Care Provider [phone] Marilee Jiang DO Attending Provider Dr. Marilee Jiang DO Referring Provider Dr. Darryl Lackey DO Attending Provider Dr. Jay Patel DO Emergency Provider Dr. Marilee Jiang DO Primary Care Provider [phone] Dr. Jay Patel DO Attending Provider Malys, Marilee Attending Unavailable Malys, Marilee Primary Care Unavailable Malys, Marilee Referring Unavailable Malys, Marilee Primary Care Unavailable Wyneski, Gem Attending Unavailable Wyneski, Gem Referring Unavailable Malys, Marilee Primary Care Unavailable Todd Lobo Attending Unavailable Darryl Lackey Attending Unavailable Malys, Marilee Primary Care Unavailable Malys, Marilee Referring Unavailable SchwJay olivier Attending Unavailable Malys, Marilee Primary Care Unavailable Malys, Marilee Primary Care Unavailable Kartik March Attending Unavailable Malys, Marilee Attending Unavailable Malys, Marilee Primary Care Unavailable Malys, Marilee Referring Unavailable Malys, Marilee Attending Unavailable Malys, Marilee Referring Unavailable Malys, Marilee Primary Care Unavailable Malys, Marilee Attending Unavailable Malys, Marilee Referring Unavailable Malys, Marilee Primary Care Unavailable Wyneski, Gem Referring Unavailable Malys, Marilee Primary Care Unavailable Wyneski, Gem Attending Unavailable Malys, Marilee Attending Unavailable Malys, Marilee Primary Care Unavailable Malys, Marilee Primary Care Unavailable Wyneski, Gem Attending Unavailable Wyneski, Gem Referring Unavailable Malys, Marilee Primary Care Unavailable Wyneski, Gem Attending Unavailable Wyneski, Gem Referring Unavailable Malys, Marilee Primary Care Unavailable Malys, Marilee Referring Unavailable Malys, Marilee Attending Unavailable Malys, Marilee Primary Care Unavailable Malys, Marilee Referring Unavailable Malys, Marilee Attending Unavailable Malys, Marilee Primary Care Unavailable Malys, Marilee Referring Unavailable Malys, Marilee Attending Unavailable Allergies Allergy Classification Reported Allergen(s) Allergy Type Date of Onset Reaction(s) Facility (18 sources) Aspirin Drug Allergy 2 [facility] (18 sources) Codeine Drug Allergy 2 [facility] (18 sources) levoFLOXacin Drug Allergy 2 [facility] (18 sources) Nonsteroidal Anti-inflammatory Compounds Allergy to substance 2 [facility] (18 sources) Penicillins Allergy to substance 2 [facility] (18 sources) Solifenacin Drug Allergy 2 Unknown [facility] (18 sources) Sulfonamides (Antibiotic) Allergy to substance 2 [facility] (5 sources) oxyCODONE Drug Allergy 4 Swelling [facility] (1 source) Aspirin Drug Allergy 5 [facility] (1 source) Codeine Drug Allergy 5 [facility] (1 source) levoFLOXacin Drug Allergy 5 [facility] (1 source) NSAIDs Drug allergy (disorder) 5 [facility] (1 source) oxyCODONE Drug Allergy 5 [facility] (1 source) Penicillins Drug allergy (disorder) 5 [facility] (1 source) Solifenacin Drug Allergy 5 [facility] (1 source) Sulfonamides (Antibiotic) Drug allergy (disorder) 5 [facility] Medications Current Medications Medication Drug Class(es) Dates Sig (Normalized) Sig (Original) ascorbic acid 500 mg oral capsule (18 sources) Vitamin C Start: 11-08-2017 take 1 capsule by mouth once daily Ascorbic Acid (Vitamin C) 500 MG capsule Active 500 mg PO DAILY November 08, 2017 12:00am supplement brimonidine tartrate 1.5 mg/ml ophthalmic solution (18 sources) alpha-Adrenergic Agonist Start: 11-08-2017 Brimonidine 1 DROP bottle Active 1 NMA Left Eye TWICE A DAY November 08, 2017 12:00am damaged eye calcium carbonate 1500 mg oral tablet (18 sources) Start: 11-08-2017 take 1 tablet by mouth at bedtime Calcium Carbonate 600 MG tablet Active 600 mg PO AT BEDTIME November 08, 2017 12:00am supplement cholecalciferol 0.125 mg oral capsule (18 sources) Vitamin D Start: 11-08-2017 take 1 capsule by mouth once daily Cholecalciferol (Vitamin D3) (Vitamin D3) 5,000 UNIT capsule Active 5000 U PO DAILY November 08, 2017 12:00am supplement cyclobenzaprine hydrochloride 5 mg oral tablet (5 sources) Muscle Relaxant Start: 08-03-2023 take 1 tablet by mouth twice daily as needed for muscle spasms Cyclobenzaprine 5 mg tablet Active 5 mg PO TWICE A DAY as needed for muscle spasm 10 0 August 03, 2023 11:25pm glimepiride 4 mg oral tablet (18 sources) Sulfonylurea Start: 11-08-2017 take 1 tablet by mouth twice daily Glimepiride 4 MG tablet Active 4 mg PO TWICE A DAY November 08, 2017 12:00am diabetes insulin glargine 100 unt/ml injectable solution (18 sources) Insulin Analog Start: 11-08-2017 Insulin Glargine (Lantus U-100 Insulin) 100 UNIT/ML solution Active 18 U SC AT BEDTIME November 08, 2017 12:00am diabetes insulin, regular, human 100 unt/ml injectable solution (18 sources) Insulin Start: 11-30-2020 Insulin Regular Human (Novolin R Regular U-100 Insuln) 100 unit/mL solution Active 4 U SC November 30, 2020 12:00am losartan potassium 50 mg oral tablet (18 sources) Angiotensin 2 Receptor Chris Start: 11-08-2017 Losartan 50 MG tablet Active 75 mg PO DAILY November 08, 2017 12:00am blood pressure Start: 11-08-2017 take 75 mg by mouth once daily Losartan Active 75 MG PO DAILY November 08, 2017 12:00am metFORMIN hydrochloride 500 mg oral tablet (20 sources) Biguanide Start: 08-28-2024 take 1 tablet by mouth once daily Metformin 500 mg tablet Active 500 mg PO daily August 28, 2024 12:00am Start: 11-30-2020 End: 10-27-2021 take 1 tablet by mouth every twenty-four hours Metformin 500 mg tablet extended release 24 hr Discontinued NMA PO November 30, 2020 12:00am October 27, 2021 1:04pm Start: 11-08-2017 End: 11-11-2017 take 1 tablet by mouth three times daily Metformin 500 MG tablet Discontinued 500 mg PO THREE TIMES A DAY November 08, 2017 12:00am November 11, 2017 8:33am diabetes Multivitamin (Daily Multiple) 1 EACH tablet (18 sources) Start: 11-08-2017 take 1 tablet by mouth once daily Multivitamin (Daily Multiple) 1 EACH tablet Active 1 NMA PO DAILY November 08, 2017 12:00am supplement Start: 11-08-2017 take 1 tablet by kathy th once daily Multivitamin (Daily Multiple) 1 EACH tablet Active 1 NMA PO DAILY November 08, 2017 12:00am Start: 11-08-2017 take 1 tablet by kathy th once daily Multivitamin (Daily Multiple) 1 EACH tablet Active 1 EACH PO DAILY November 08, 2017 12:00am Start: 11-08-2017 take 1 tablet by kathy th once daily Multivitamin (Daily Multiple) 1 EACH tablet Active 1 EACH PO DAILY November 07, 2017 11:00pm Peridot-3 Fatty Acids-Fish Oil (Fish Oil) 1 EACH capsule (18 sources) Start: 11-08-2017 Peridot-3 Fatty Acids-Fish Oil (Fish Oil) 1 EACH capsule Active 1 NMA PO DAILY November 08, 2017 12:00am supplement Start: 11-08-2017 Peridot-3 Fatty Acids-Fish Oil (Fish Oil) 1 EACH capsule Active 1 NMA PO DAILY November 08, 2017 12:00am Start: 11-08-2017 Peridot-3 Fatty Acids-Fish Oil (Fish Oil) 1 EACH capsule Active 1 EACH PO DAILY November 08, 2017 12:00am Start: 11-08-2017 Peridot-3 Fatty Acids-Fish Oil (Fish Oil) 1 EACH capsule Active 1 EACH PO DAILY November 07, 2017 11:00pm omeprazole 20 mg delayed release oral capsule (18 sources) Proton Pump Inhibitor Start: 11-08-2017 take 1 capsule by mouth once daily Omeprazole 20 MG capsule,delayed release(DR/EC) Active 20 mg PO DAILY November 08, 2017 12:00am pioglitazone 45 mg oral tablet (20 sources) Peroxisome Proliferator Receptor alpha Agonist, Peroxisome Proliferator Receptor gamma Agonist, Thiazolidinedione Start: 10-27-2021 take 1 tablet by mouth once daily Pioglitazone (Actos) 45 mg tablet Active 45 mg PO DAILY October 27, 2021 12:00am Start: 06-02-2021 End: 08-31-2021 take 1 tablet by mouth once daily Pioglitazone (Actos) 30 mg tablet Discontinued 30 mg PO DAILY 90 90 0 June 02, 2021 1:00am August 30, 2021 12:00am August 31, 2021 12:04am pravastatin sodium 10 mg oral tablet (18 sources) HMG-CoA Reductase Inhibitor Start: 11-08-2017 take 1 tablet by mouth at bedtime Pravastatin 10 MG tablet Active 10 mg PO AT BEDTIME November 08, 2017 12:00am cholesterol saccharomyces boulardii 250 mg oral capsule (18 sources) Start: 11-30-2020 take 1 capsule by mouth once daily Saccharomyces Boulardii (Daily Probiotic (S. Boulardii)) 250 mg capsule Active 250 mg PO DAILY November 30, 2020 12:00am traMADol hydrochloride 50 mg oral tablet (2 sources) Opioid Agonist Start: 09-14-2024 take 1 tablet by mouth every four hours as needed for pain Tramadol 50 mg tablet Active 50 mg PO EVERY 4 HOURS NEEDED as needed for Pain 20 3 0 September 14, 2024 12:00am vitamin b12 0.5 mg oral tablet (18 sources) Vitamin B12 Start: 11-08-2017 Cyanocobalamin (Vitamin B-12) 500 MCG tablet Active 1 {tbl} PO DAILY@0800 November 08, 2017 12:00am supplement Completed/Discontinued Medications Medication Drug Class(es) Dates Sig (Normalized) Sig (Original) acetaminophen 325 mg / HYDROcodone bitartrate 5 mg oral tablet (5 sources) Opioid Agonist Start: 08-03-2023 End: 08-28-2024 Hydrocodone-Acetamino phen 5-325 mg tablet Discontinued 1 {tbl} PO EVERY 6 HOURS as needed for pain 10 3 0 August 03, 2023 August 28, 2024 3:30pm Sacroiliac joint dysfunction of right side Sacrococcygeal disorders, not elsewhere classified Start: 08-03-2023 take 1 tablet by kathy th every six hours Hydrocodone-Acetaminophen Active 1 TABLE T PO EVERY 6 HOURS 10 3 August 03, 2023 magnesium oxide 400 mg oral tablet (18 sources) Start: 11-08-2017 End: 08-28-2024 take 1 tablet by mouth at bedtime Magnesium Oxide 400 MG tablet Discontinued 400 mg PO AT BEDTIME November 08, 2017 12:00am August 28, 2024 3:29pm supplement metoclopramide 5 mg oral tablet (18 sources) Dopamine-2 Receptor Antagonist Start: 06-02-2021 End: 07-02-2021 take 1 tablet by mouth three times daily 30 minutes before mealtime Metoclopramide Hcl 5 mg tablet Discontinued 5 mg PO THREE TIMES A DAY 90 30 0 June 02, 2021 1:00am 2021 1:00am July 02, 2021 1:04am administer 30 minutes before meals Nirmatrelvir-Ritonav ir (Paxlovid) 300 mg (150 mg x 2)-100 mg tablets,dose pack (4 sources) Start: 01-02-2024 End: 08-28-2024 Nirmatrelvir-Ritona vir (Paxlovid) 300 mg (150 mg x 2)-100 mg tablets,dose pack Discontinued 0 PO .COMPLEX 30 January 02, 2024 12:00am August 28, 2024 3:28pm take TWO 150 mg tablets of nirmatrelvir with ONE 100 mg tablet of ritonavir twice daily for 5 days Start: 01-02-2024 End: 08-28-2024 Nirmatrelvir-Ritonavir (Paxl ovid) 300 mg (150 mg x 2)-100 mg tablets,dose pack Discontinued 0 PO .COMPLEX January 02, 2024 12:00am August 28, 2024 3:28pm take TWO 150 mg tablets of nirmatrelvir with ONE 100 mg tablet of ritonavir twice daily for 5 days Start: 01-02-2024 Nirmatrelvir-R itonavir (Paxlovid) 300 mg (150 mg x 2)-100 mg tablets,dose pack Active 0 PO .COMPLEX January 02, 2024 12:00am take TWO 150 mg tablets of nirmatrelvir with ONE 100 mg tablet of ritonavir twice daily for 5 days nitrofurantoin, macrocrystals 25 mg / nitrofurantoin, monohydrate 75 mg oral capsule (18 sources) Nitrofuran Antibacterial Start: 11-08-2017 End: 11-11-2017 take 1 capsule by mouth twice daily Nitrofurantoin Monohyd/M-Cryst (Macrobid 100 Mg Capsule) 100 MG capsule Discontinued 100 mg PO TWICE A DAY November 08, 2017 12:00am November 11, 2017 8:33am infection 24 hr oxybutynin chloride 5 mg extended release oral tablet (18 sources) Cholinergic Muscarinic Antagonist Start: 11-08-2017 End: 11-30-2020 take 1 tablet by mouth once daily Oxybutynin Chloride (Ditropan Xl) 5 MG tablet Discontinued 5 mg PO DAILY November 08, 2017 12:00am November 30, 2020 1:09pm urinary issues traZODone hydrochloride 150 mg oral tablet (18 sources) Serotonin Reuptake Inhibitor Start: 11-08-2017 End: 11-30-2020 take 1 tablet by mouth at bedtime Trazodone 150 MG tablet Discontinued 150 mg PO AT BEDTIME November 08, 2017 12:00am November 30, 2020 1:09pm depression/sleep Problems Active Problems Problem Classification Problem Date Documented Da te Episodic/Chronic Diabetes mellitus without complication (20 sources) Diabetes mellitus; Translations: [Type 2 diabetes mellitus without complications] 04-28-2021 Chronic E Codes: Fall (10 sources) Fall; Translations: [Unspecified fall, initial encounter] 06-10-2023 Episodic Esophageal disorders (20 sources) Gastroesophageal reflux disease; Translations: [Gastro-esophageal reflux disease without esophagitis] Chronic Essential hypertension (18 sources) Benign essential hypertension; Translations: [Essential (primary) hypertension] 11-08-2017 Chronic Genitourinary symptoms and ill-defined conditions (1 source) Nocturnal enuresis; Translations: [Nocturnal enuresis] Onset: 5 Chronic Genitourinary symptoms and ill-defined conditions (1 source) Dysuria; Translations: [Dysuria] Onset: 5 Episodic Malaise and fatigue (18 sources) Asthenia; Translations: [Weakness] 11-08-2017 Episodic Osteoarthritis (18 sources) Osteoarthritis; Translations: [Unspecified osteoarthritis, unspecified site] 11-08-2017 Chronic Other connective tissue disease (6 sources) Pain in left arm; Translations: [Pain in left arm] 06-10-2023 Episodic Other disorders of stomach and duodenum (18 sources) Gastroparesis syndrome; Translations: [Gastroparesis] 04-28-2021 Episodic Other disorders of stomach and duodenum (5 sources) Gastroparesis; Translations: [Gastroparesis] Episodic Other endocrine disorders (17 sources) Hypoglycemia; Translations: [Drug-induced 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] 03-30-2022 Chronic Other gastrointestinal disorders (18 sources) Irritable bowel syndrome; Translations: [Irritable bowel syndrome without diarrhea] 10-27-2021 Chronic Other gastrointestinal disorders (12 sources) Irritable bowel syndrome without diarrhea; Translations: [Irritable bowel syndrome] Chronic Other gastrointestinal disorders (18 sources) Diarrhea; Translations: [Diarrhea, unspecified] 04-28-2021 Episodic Other gastrointestinal disorders (5 sources) Diarrhea, unspecified; Translations: [Diarrhea] 02-26-2023 Episodic Other gastrointestinal disorders (2 sources) Dysphagia; Translations: [Dysphagia, unspecified] 08-28-2024 Episodic Other gastrointestinal disorders (1 source) Dysphagia, unspecified; Translations: [Dysphagia, unspecified] Onset: Episodic Other injuries and conditions due to external causes (6 sources) Abrasion; Translations: [Other injury of unspecified body region, initial encounter] 06-10-2023 Episodic Other lower respiratory disease (6 sources) Rib pain; Translations: [Pleurodynia] 06-10-2023 Episodic Other nutritional; endocrine; and metabolic disorders (18 sources) Obesity; Translations: [Obesity, unspecified] 11-08-2017 Chronic Other nutritional; endocrine; and metabolic disorders (1 source) Hypercalcemia; Translations: [Hypercalcemia] Onset: 5 Chronic Residual codes; unclassified (17 sources) Altered mental status; Translations: [Altered mental status, unspecified] 03-30-2022 Episodic Spondylosis; intervertebral disc disorders; other back problems (6 sources) Sacroiliac disorder; Translations: [Sacrococcygeal disorders, not elsewhere classified] Onset: 5 08-03-2023 Episodic Sprains and strains (6 sources) Lower back injury; Translations: [Strain of muscle, fascia and tendon of lower back, initial encounter] 01-10-2024 Episodic Superficial injury; contusion (6 sources) Hematoma of occipital scalp; Translations: [Contusion of scalp, initial encounter] 06-10-2023 Episodic Viral infection (4 sources) Disease caused by 2019-nCoV; Translations: [COVID-19] 01-02-2024 Episodic Past or Other Problems Problem Classification Problem Date Documented Da te Episodic/Chronic Abdominal pain (1 source) Unspecified abdominal pain; Translations: [Unspecified abdominal pain] Onset: 06-02-2024 Episodic Calculus of urinary tract (1 source) Calculus of ureter; Translations: [Calculus of ureter] Onset: 07-02-2024 Episodic Other aftercare (1 source) Encounter for therapeutic drug level monitoring; Translations: [Encounter for therapeutic drug level monitoring] Onset: 05-16-2024 Episodic Other injuries and conditions due to external causes (1 source) Encounter for examination and observation following other accident; Translations: [Encounter for examination and observation following other accident] Onset: 01-23-2024 Episodic Other lower respiratory disease (1 source) Shortness of breath; Translations: [Shortness of breath] Onset: 05-30-2024 Episodic Other screening for suspected conditions (not mental disorders or infectious disease) (1 source) Encounter for screening mammogram for malignant neoplasm of breast; Translations: [Encounter for screening mammogram for malignant neoplasm of breast] Onset: 05-15-2024 Episodic Results Test Name Value Interpretation Reference Range Facility Urine Cultureon 10-18-2024 [facility] Enterococcus faecali s [place] Count >100,000 Enterococcus faecalis: REACTION Ampicillin Islt PAULETTE <=2 Ciprofloxacin Islt PAULETTE <=0.5 S Gentamicin Synergy Susc Islt SYN-S S levoFLOXacin Islt PAULETTE 1 S Linezolid Islt PAULETTE 2 S Nitrofurantoin Islt PAULETTE <=16 S Streptomycin High Pot Susc Islt SYN-S S Tetracycline Islt PAULETTE <=1 S Vancomycin Islt PAULETTE 1 S Normal [facility] Comment on above: Performed By: #### M [id number] #### [facility] [address] [place], [address] Urine cultureOrdered By: Yanique Jiang on 10-16-2024 Bacteria identified Cx Nom (U) Enterococcus faecalis Abnormal [facility] Emergency Department Summary on 09-14-2024 Emergency Department Summary [facility] Medical Records Department [address] [place] [address] Emergency Department Summary 09/14/24 MR#: [id number] Acct: [id number] Name: LAZARA SHANE Rep #: [id number] : 1940 84 From: Jay Patel DO PCP: Dr. Marilee Jiang, DO Status:REG ER Location: ED HPI History of Present Illness Chief Complaint: Back Informant: patient Onset/Context/Timing Onset: Weeks (1) Context: Gradual Onset Timing: Continuous Quality: - (Cramping) Location: Lumbar Worsened by: improves with Movement Relieved by: Nothing Associated Symptoms Associated Symptoms: Abdominal Pain; Negative for Numbness, Tingling, Radiation to Right Leg, Radiation to Left Leg, Fever, Dysuria, Unable to Ambulate, Unable to Transfer, Urinary Retention, Urinary Incontinence, Constipation or Fecal Incontinence Narrative Narrative: Patient presents with low back pain that has been getting worse over the past week. Patient states it is gradually getting worse. Patient denies any trauma or injury. Patient states her pain is over her lower lumbar area. Patient describes it as cramping. Patient states it is worse with movement such as standing. Patient states nothing seems to help with it. Patient admits to some pain into her abdomen. Patient denies any nausea or vomiting. Patient denies any bowel or bladder changes. Patient denies any saddle anesthesia. [facility] Medical History Diarrhea Diabetes Gastroparesis Unsteady gait Shortness of breath Asthma Home Medications ???Medication ???Instructions ???Recorded ???Last Taken ???Type Cholecalciferol (Vitamin D3) 5,000 unit PO DAILY supplement 11/08/17 08:00 History [Vitamin D3] ascorbic acid (vitamin C) 500 mg 500 mg PO DAILY supplement 8 11/07/17 20:00 History capsule brimonidine 0.15 % eye drops 1 drp BID damaged eye 11/08/17 08:00 History calcium carbonate 600 mg PO QHS supplement 11/08/17 11/07/17 20:00 History cyanocobalamin (vitamin B-12) 500 1 tab PO DAILY@0800 supplement 11/08/17 08:00 History mcg tablet glimepiride 4 mg tablet 4 mg PO BID diabetes 11/08/1710/21 08:00 History insulin glargine 100 unit/mL 18 unit subcut QHS diabetes 11/07/17 20:00 History subcutaneous solution (Lantus U-100 Insulin) losartan 50 mg tablet 75 mg PO DAILY blood pressure 10/2111/08/17 08:00 History multivitamin (Daily Multiple 1 ea PO DAILY supplement 11/08/17 11/08/17 08:00 History tablet) omega-3 fatty acids-fish oil 340 1 ea PO DAILY supplement 11/08/17 11/08/17 08:00 History mg-1,000 mg capsule (Fish Oil) omeprazole 20 mg capsule,delayed 20 mg PO DAILY 11/08/17 11/08/17 0 8:00 History release pravastatin 10 mg tablet 10 mg PO QHS cholesterol 11/08/17 11/07/17 20:00 History Saccharomyces boulardii 250 mg 250 mg PO DAILY 11/30/20 Unknown H istory capsule (Daily Probiotic (S. boulardii)) insulin regular human 100 unit/mL 4 unit subcut 11/30/20 Unknown Hi story injection solution pioglitazone 45 mg tablet (Actos) 45 mg PO DAILY 10/27/21 Unknown H istory cyclobenzaprine 5 mg tablet 5 mg PO BID PRN muscle spasm #10 0 08/03/23 Unknown Rx tabs metformin 500 mg tablet 500 mg PO QDAY 08/28/24 Unknown Hi story tramadol 50 mg tablet 50 mg PO Q4H PRN PRN Pain 3 days 0 09/14/24 Unknown Rx #20 tabs Allergy/AdvReac Type Severity Reaction Status Date / Time levofloxacin (From Levaquin) Allergy Mild rash Verified 09/14/24 13:11 oxycodone Allergy Mild Swelling Verified 09/14/24 13:11 aspirin Allergy Rash Verified 09/14/24 13:11 codeine Allergy Rash Verified 09/14/24 13:11 NSAIDS (Non-Steroidal Allergy Rash Verified 09/14/24 13:11 Anti-Inflamma Penicillins Allergy Rash Verified 09/14/24 13:11 solifenacin (From Vesicare) Allergy Unknown Verified 09/14/24 13:11 Sulfa (Sulfonamide Allergy Rash Verified 09/14/24 13:11 Antibiotics) Family History Sister Breast cancer Mother CVA (cerebral vascular accident) Hypertension Father Diabetes Heart disease Surgical History History of knee replacement History of hysterectomy History of colonoscopy History of left inguinal hernia repair History of left inguinal hernia repair History of left inguinal hernia repair Social History household members: family Smoking Status: Former smoker substance use type: does not use ROS ROS ED Constitutional Constitutional ED: Denies chills or fever(s) Eyes Eyes: Denies blurry vision or change in vision ENT ENT ED: Denies rhinorrhea or sore throat Cardiovascular Ca (more content not included)... Normal [facility] Lumbar Spine 2 or 3 Viewson 09-14-2024 Lumbar Spine 2 or 3 Views [facility] Services [address] [place] [address] Lumbar Spine 2 or 3 Views MR#: [id number] Acct: [id number] Name: LAZARA SHANE Rep #: [id number] : 1940 F 84 From: Jabier Morales DO PCP: Dr. Marilee Jiang DO Status: REG ER Study: Lumbar Spine 2 or 3 Views Date of Exam: Exam# [id number] Ordering Dr: Jay Patel DO PROCEDURE: LUMBAR SPINE 2 OR 3 VIEWS 09/14/2024 REASON FOR EXAM: INJURY/PAIN Initial encounter. TECHNIQUE: 2 view(s) of the lumbar spine COMPARISON: Abdomen/pelvis CT of June 12, 2024 FINDINGS: Vertebrae: No fractures Discs: Disc heights relatively maintained moderate endplate spondylosis. Alignment: Normal lumbar lordosis Other: No acute process identified. Dense splenic artery calcifications are present in the left upper quadrant RAD/Lumbar Spine 2 or 3 Views IMPRESSION: No acute process detected. Other findings as above Reading Location: [facility] CC: Dr. Jay Patel DO; Dr. Marilee Jiang DO Correspondence Specialist: Signed Normal [facility] Gastroenterology Visit Repor ton 08-28-2024 Gastroenterology Visit Report [facility] [place] [facility] [address] [place] [address] OFFICE VISIT Date of Service: 08/28/24 MR#: [id number] Acct: [id number] Name: LAZARA SHANE Rep #: [id number] : 1940 Provider: Darryl Lackey DO Age/Sex: 84/F Location: [facility] Status: Signed Intake Vital Signs 01/02/24 18:01 Height 5 ft 3 in Intake Visit Reasons: Dysphagia Chief Complaint: Follow-up Allergies levofloxacin (From Levaquin) Allergy (Mild, Verified 08/03/23 21:44) rash oxycodone Allergy (Mild, Verified 08/03/23 21:45) Swelling aspirin Allergy (Verified 08/03/23 21:44) Rash codeine Allergy (Verified 08/03/23 21:44) Rash NSAIDS (Non-Steroidal Anti-Inflamma Allergy (Verified 08/03/23 21:44) Rash Penicillins Allergy (Verified 08/03/23 21:44) Rash solifenacin (From Vesicare) Allergy (Verified 08/03/23 21:44) Unknown Sulfa (Sulfonamide Antibiotics) Allergy (Verified 08/03/23 21:44) Rash Medications ???Medication ???Instructions ???Recorded ???Confirmed ???Type Cholecalciferol (Vitamin D3) 5,000 unit PO DAILY supplement 08/28/24 History [Vitamin D3] ascorbic acid (vitamin C) 500 mg 500 mg PO DAILY supplement 8 08/28/24 History capsule brimonidine 0.15 % eye drops 1 drp BID damaged eye 11/08/1712/15 History calcium carbonate 600 mg PO QHS supplement 11/08/17 08/28/24 History cyanocobalamin (vitamin B-12) 500 1 tab PO DAILY@0800 supplement 08/28/24 History mcg tablet glimepiride 4 mg tablet 4 mg PO BID diabetes 11/08/17 0512/15 History insulin glargine 100 unit/mL 18 unit subcut QHS diabetes 08/28/24 History subcutaneous solution (Lantus U-100 Insulin) losartan 50 mg tablet 75 mg PO DAILY blood pressure 10/2108/28/24 History multivitamin (Daily Multiple 1 ea PO DAILY supplement 11/08/17 08/28/24 History tablet) omega-3 fatty acids-fish oil 340 1 ea PO DAILY supplement 11/08/17 08/28/24 History mg-1,000 mg capsule (Fish Oil) omeprazole 20 mg capsule,delayed 20 mg PO DAILY 11/08/17 08/28/24 H istory release pravastatin 10 mg tablet 10 mg PO QHS cholesterol 11/08/17 08/28/24 History Saccharomyces boulardii 250 mg 250 mg PO DAILY 11/30/20 08/28/22 History capsule (Daily Probiotic (S. boulardii)) insulin regular human 100 unit/mL 4 unit subcut 11/30/20 08/28/24 H istory injection solution pioglitazone 45 mg tablet (Actos) 45 mg PO DAILY 10/27/21 08/28/22 History cyclobenzaprine 5 mg tablet 5 mg PO BID PRN muscle spasm #10 0 08/03/23 08/28/24 Rx tabs metformin 500 mg tablet 500 mg PO QDAY 08/28/24 08/28/24 H istory Have you fallen in the past year?: No PFSH Medical History Diarrhea Diabetes Gastroparesis Unsteady gait Shortness of breath Asthma Surgical History History of knee replacement History of hysterectomy History of colonoscopy History of left inguinal hernia repair History of left inguinal hernia repair History of left inguinal hernia repair Family History Sister Breast cancer Mother CVA (cerebral vascular accident) Hypertension Father Diabetes Heart disease Social History household members: family Smoking Status: Former smoker substance use type: does not use HPI HPI Chief Complaint: Follow-up Details: LAZARA SHANE, is a 84 F who presents to the office today for follow up. DMII with nephropathy and retinopathy Prior workup: ? CT abd/pel 10.14.20 abdominal aortic calcification; vaginal pessary. *BGI established 04.28.21 with abdominal pain and loose stools alternating with constipation; previously established with Dr. Hays who diagnosed IBS.. Worst during trip in [place] with hospitalization for what she thought was bowel obstruction; treated with IVF and discharged. Hold metformin ? Biochemical ESR, celiac, TSH WNL? CRP H8.6 ? Stool calprotectin, lactoferrin, EP, giardia, H.pylori WNL ? GET 2.1.22 128.26 minutes (12-56) ? Start low-dose reglan. OV 2.10.23 with holding metformin her A1c is 8.9 with blood sugars ranging from 130-180 with elevation above 200 approximately 8 times. Every couple of weeks is having episodes of loose stools for which immodium is helpful. Start active and increase reglan to 5mg TID OV 4.1.22 BM pattern normal movement alternating with hard/small stools for se (more content not included)... Normal [facility] Vitamin D 1,25-Dihydroxyon 0 07-21-2024 VIT D 1,25 DIHY 70.5 pg/mL Normal 24.8-81.5 [facility] Comment on above: Result Comment: Perf ormed at: [facility] - [facility] [address] [id number] Riding Coach: Saran Huynh MD, Phone: [phone] Performed By: #### L 710.2971 #### [facility] [place], [address] 1,25-dihydroxyvitamin D3 [Co ss/Vol]Ordered By: Marilee Jiang on 07-16-2024 Vitamin D 1,25-Dihydroxy 70.5 pg/mL 24.8-81.5 [facility] Comment on above: Performed at: [facility] - [facility] [id number] [place], [place] [id number] Director: Saran Huynh MD, Phone: [phone] Absolute lymphocyte countOrd ered By: Marilee Jiang on 07-16-2024 Lymphocytes Auto (Unsp spec) [#/Vol] 2.02 10*3/uL 0.83-4.51 [facility] Absolute neutrophil countOrd ered By: Marilee Jiang on 07-16-2024 Neutrophils (Bld) [#/Vol] 2.8 10*3/uL 2.0-7.7 [facility] Anion gap in Serum or Plasma Ordered By: Marilee Jiang on 07-16-2024 Anion gap [Moles/Vol] 10 mmol/L 5-15 [facility] Atypical lymphocyte percenta geOrdered By: Marilee Jiang on 07-16-2024 Atypical Lymphocytes 2+ % [facility] Automated lymphocyte count a s percentage of total leukocytesOrdered By: Marilee Jiang on 07-16-2024 Lymphocytes/100 WBC Auto (Unsp spec) 34.1 % 19-41 [facility] BUN/creatinine ratioOrdered By: Marilee Jiang on 07-16-2024 Urea nitrogen/Creatinine [Mass ratio] 29.9 mg/mg High 10-20 [facility] Basophil percentageOrdered B y: Marilee Jiang on 07-16-2024 Basophils/100 WBC (Bld) 0.7 % 0-1 [facility] Bilirubin, totalOrdered By: Marilee Jiang on 07-16-2024 Bilirubin [Mass/Vol] 0.28 mg/dL 0.00-1.30 [facility] CBC W/Diff, Automatedon 06-22 ATYPICAL LYMPH 2+ Normal [facility] Comment on above: Performed By: #### L 500.7559 #### [facility] [place], [address] Carbon dioxide, total [Moles /volume] in Central venous bloodOrdered By: Marilee Jiang on 07-16-2024 CO2 [Moles/Vol] 25.2 mmol/L 21.0-32.0 [facility] Chloride assayOrdered By: Vashti Jiang on 07-16-2024 Chloride [Moles/Vol] 98 mmol/L 98-108 [facility] Comprehensive Metabolic Prof ilon 07-16-2024 Albumin [Mass/Vol] 3.9 g/dL Normal 3.4-4.8 [facility] Comment on above: Performed By: #### M 100.2200 #### [facility] [address] [place], [address] Albumin/Globulin [Mass ratio] 1.0 {ratio} Normal 0.9-2.4 [facility] Comment on above: Performed By: #### M 100.2200 #### [facility] [address] [place], [address] ALK PHOS 72 U/L Normal 35-104 [facility] Comment on above: Performed By: #### M 100.2200 #### [facility] [address] [place], [address] ALT [Catalytic activity/Vol] 20 U/L Normal <=34 [facility] Comment on above: Performed By: #### M 100.2200 #### [facility] [address] [place], [address] AST [Catalytic activity/Vol] 31 U/L Normal <=31 [facility] Comment on above: Performed By: #### M 100.2200 #### [facility] [address] [place], [address] Bilirubin [Mass/Vol] 0.28 mg/dL Normal 0.00-1.30 [facility] Comment on above: Performed By: #### M 100.2200 #### [facility] [address] [place], [address] BUN/CRE 29.9 RATIO High 10-20 [facility] Comment on above: Performed By: #### M 100.2200 #### [facility] [address] [place], [address] Calcium [Mass/Vol] 9.5 mg/dL Normal 7.6-11.0 [facility] Comment on above: Performed By: #### M 100.2200 #### [facility] [address] [place], [address] Chloride [Moles/Vol] 98 mmol/L Normal 98-108 [facility] Comment on above: Performed By: #### M 100.2200 #### [facility] [address] [place], [address] CO2 [Moles/Vol] 25.2 mmol/L Normal 21.0-32.0 [facility] Comment on above: Performed By: #### M 100.2200 #### [facility] [address] [place], [address] Creatinine [Mass/Vol] 0.53 mg/dL Low 0.70-1.20 [facility] Comment on above: Performed By: #### M 100.2200 #### [facility] [address] [place], [address] GAP 10 Normal 5-15 [facility] Comment on above: Performed By: #### M 100.2200 #### [facility] [address] [place], [address] GFR/1.73 sq M.predicted among non-blacks MDRD (S/P/Bld) [Vol rate/Area] 92 mL/min/{1.73_m2} Normal >60 [facility] Comment on above: Result Comment: mL/m in/1.73m2 CKD-EPI Creatinine Equation (2020) Performed By: #### M 100.2200 #### [facility] [address] [place], [address] Globulin (S) [Mass/Vol] 3.8 g/dL Normal 2.2-4.2 [facility] Comment on above: Performed By: #### M 100.2200 #### [facility] [address] [place], [address] Glucose [Mass/Vol] 110 mg/dL High 70-99 [facility] Comment on above: Performed By: #### M 100.2200 #### [facility] [address] [place], [address] Potassium [Moles/Vol] 4.5 mmol/L Normal 3.3-5.1 [facility] Comment on above: Performed By: #### M 100.2200 #### [facility] [address] [place], [address] Sodium [Moles/Vol] 133 mmol/L Normal 133-145 [facility] Comment on above: Performed By: #### M 100.2200 #### [facility] [address] [place], [address] T PROT 7.6 g/dL Normal 5.9-8.4 [facility] Comment on above: Performed By: #### M 100.2200 #### [facility] [address] [place], [address] Urea nitrogen [Mass/Vol] 16 mg/dL Normal 4-19 [facility] Comment on above: Performed By: #### M 100.2200 #### [facility] [address] [place], [address] Eosinophil percentageOrdered By: Marilee Jiang on 07-16-2024 Eosinophils/100 WBC (Bld) 3.9 % 0-5 [facility] Erythrocyte distribution wid th ratioOrdered By: Marilee Jiang on 07-16-2024 Erythrocyte distribution width (RBC) [Ratio] 17.4 % High 11.6-14.6 [facility] Erythrocyte distribution wid th standard deviationOrdered By: Marilee Jiang on 07-16-2024 Erythrocyte distribution width (RBC) [Entitic vol] 50.0 fL High 35.1-43.9 [facility] Erythrocyte distribution width (RBC) [Ratio] 50.0 fl High 35.1-43.9 [facility] Free T3on 07-16-2024 Free T3 [Mass/Vol] 2.8 pg/mL Normal 2.18-3.98 [facility] Comment on above: Performed By: #### M 100.2200 #### [facility] [address] [place], [address] Free H2Iazkxos By: Marilee Milner s on 07-16-2024 Free T3 [Mass/Vol] 2.8 pg/mL 2.18-3.98 [facility] Free Triiodothyronine (T3) pg/dL 2.8 pg/mL 2.18-3.98 [facility] GFR/1.73 sq M.predicted chay g non-blacks MDRD (S/P/Bld) [Vol rate/Area]Ordered By: Marilee Jiang on 07-16-2024 Estimated GFR (MDRD) Non-Af Amer 92 >60 [facility] Comment on above: mL/min/1.73m2 CKD-EP I Creatinine Equation (2020) Glomerular filtration rate ( GFR) estimation/1.73 sq m using serum, plasma, or whole bOrdered By: Marilee Jiang on 07-16-2024 GFR/1.73 sq M.predicted among non-blacks MDRD (S/P/Bld) [Vol rate/Area] 92 mL/min/{1.73_m2} >60 [facility] Comment on above: mL/min/1.73m2 CKD-EP I Creatinine Equation (2020) Hematocrit Auto (Bld) [Volum e fraction]Ordered By: Marilee Jiang on 07-16-2024 Hematocrit (Bld) [Volume fraction] 34.9 % Low 37-47 [facility] Hemoglobin measurementOrdere d By: Marilee Jiang on 07-16-2024 Hemoglobin (Bld) [Mass/Vol] 11.2 g/dL Low 12.0-15.0 [facility] Immature granulocytes/100 WB C Auto (Bld)Ordered By: Marilee Jiang on 07-16-2024 Immature granulocytes/100 WBC (Bld) 0.500 % 0.0-0.9 [facility] Comment on above: IG% - Immature Granu locytes (promyelocytes, myelocytes and metamyelocytes) > 1% indicates that a LEFT SHIFT is Present. Laboratory - Chemistry and C hemistry - challengeOrdered By: Marilee Jiang on 07-16-2024 AST [Catalytic activity/Vol] 31 U/L <32 [facility] Lymphocytes Auto (Unsp spec) [#/Vol]Ordered By: Marilee Jiang on 07-16-2024 Lymphocytes (Bld) [#/Vol] 2.02 10*3/uL 0.83-4.51 [facility] Lymphocytes/100 WBC Auto (Un sp spec)Ordered By: Marilee Jiang on 07-16-2024 Lymphocytes/100 WBC (Bld) 34.1 % 19-41 [facility] MCV (mean corpuscular volume ) determinationOrdered By: Marilee Jiang on 07-16-2024 MCV (RBC) [Entitic vol] 79.3 fL Low 81-99 [facility] Mean corpuscular hemoglobin (MCH) determinationOrdered By: Marilee Jiang on 07-16-2024 MCH (RBC) [Entitic mass] 25.5 pg Low 27.0-32.0 [facility] Mean corpuscular hemoglobin concentration (MCHC) determinationOrdered By: Marilee Jiang on 07-16-2024 MCHC (RBC) [Mass/Vol] 32.1 g/dL 32-36 [facility] Mean platelet volume determi nationOrdered By: Marilee Jiang on 07-16-2024 Platelet mean volume (Bld) [Entitic vol] 9.3 fL 6.2-12.0 [facility] Monocyte percentageOrdered B y: Marilee Jiang on 07-16-2024 Monocytes/100 WBC (Bld) 14.5 % High 0-10 [facility] Neutrophil percentageOrdered By: Marilee Jiang on 07-16-2024 Neutrophils/100 WBC (Bld) 46.3 % Low 47-70 [facility] Nucleated red blood cell per centageOrdered By: Marilee Jiang on 07-16-2024 Nucleated RBC/100 WBC (Bld) [Ratio] 0 % 0-5 [facility] Platelet countOrdered By: Vashti Jiang on 07-16-2024 Platelets (Bld) [#/Vol] 303 10*3/uL 150-450 [facility] Potassium (Unsp spec) [Mass/ Vol]Ordered By: Marilee Jiang on 07-16-2024 Potassium [Moles/Vol] 4.5 mmol/L 3.3-5.1 [facility] Potassium measurement (mass/ volume)Ordered By: Marilee Jiang on 07-16-2024 Potassium (Unsp spec) [Mass/Vol] 4.5 mmol/L 3.3-5.1 [facility] RBC Auto (Bld) [#/Vol]Ordere d By: Marilee Jiang on 07-16-2024 RBC (Bld) [#/Vol] 4.40 10*6/uL 4.2-5.4 [facility] Serum creatinine measurement (mass/volume)Ordered By: Marilee Jiang on 07-16-2024 Creatinine [Mass/Vol] 0.53 mg/dL Low 0.70-1.20 [facility] Serum globulin measurementOr dered By: Marilee Jiang on 07-16-2024 Globulin (S) [Mass/Vol] 3.8 g/dL 2.2-4.2 [facility] Serum glucose measurement (m ass/volume)Ordered By: Marilee Jiang on 07-16-2024 Glucose [Mass/Vol] 110 mg/dL High 70-99 [facility] Serum or plasma alanine woodard otransferase (ALT) measurementOrdered By: Marilee Jiang on 07-16-2024 ALT [Catalytic activity/Vol] 20 U/L <35 [facility] Serum or plasma albumin bhavani urement (mass/volume)Ordered By: Marilee Jiang on 07-16-2024 Albumin [Mass/Vol] 3.9 g/dL 3.4-4.8 [facility] Serum or plasma albumin/glob ulin mass ratioOrdered By: Marilee Jiang on 07-16-2024 Albumin/Globulin [Mass ratio] 1.0 {ratio} 0.9-2.4 [facility] Serum or plasma alkaline keenan sphatase measurementOrdered By: Marilee Jiang on 07-16-2024 ALP [Catalytic activity/Vol] 72 U/L 35-104 [facility] Serum or plasma calcitriol m easurement (mass/volume)Ordered By: Marilee Jiang on 07-16-2024 1,25-dihydroxyvitamin D3 [Mass/Vol] 70.5 pg/mL 24.8-81.5 [facility] Comment on above: Performed at: [address] [id number] Director: Saran Huynh MD, Phone: [phone] Serum or plasma calcium bhavani urement (mass/volume)Ordered By: Marilee Jiang on 07-16-2024 Calcium [Mass/Vol] 9.5 mg/dL 7.6-11.0 [facility] Serum or plasma urea nitroge n measurement (mass/volume)Ordered By: Marilee Jiang on 07-16-2024 Urea nitrogen [Mass/Vol] 16 mg/dL 4-19 [facility] Sodium levelOrdered By: Marilee Jiang on 07-16-2024 Sodium [Moles/Vol] 133 mmol/L 133-145 [facility] T4 Free Directon 07-16-2024 T4 FREE DIRECT 1.20 ng/dL Normal 0.76-1.46 [facility] Comment on above: Performed By: #### M 100.2200 #### [facility] [address] [place], [place], [address] T4 freeOrdered By: Marilee Milner s on 07-16-2024 Free T4 [Mass/Vol] 1.20 ng/dL 0.76-1.46 [facility] TSH DL <= 0.005 mIU/L QnOrde red By: Marilee Jiang on 07-16-2024 Thyroid Stimulating Hormone (TSH) 2.270 uIU/mL 0.300-4.20 0 [facility] TSH Qn 2.270 uIU/mL 0.300-4.20 0 [facility] Thyroid Stim Hormone (TSH)on 07-16-2024 TSH 2.270 uIU/mL Normal 0.300-4.20 0 [facility] Comment on above: Performed By: #### M 100.2200 #### [facility] [address] [place], [place], [address] Total proteinOrdered By: Yanique Jiang on 07-16-2024 Protein [Mass/Vol] 7.6 g/dL 5.9-8.4 [facility] White blood cell (WBC) count Ordered By: Marilee Jiang on 07-16-2024 WBC (Bld) [#/Vol] 5.9 10*3/uL 4.4-11.0 [facility] Abdomen/Pelvis without Conto n 06-17-2024 Abdomen/Pelvis without Cont [facility] [address] [place], [place] [address] Abdomen/Pelvis without Cont MR#: [id number] Acct: [id number] Name: LAZARA SHANE Rep #: [id number] : 1940 F 83 From: Brenton clement MD PCP: Dr. Marilee Jiang, DO Status: REG CLI Study: Abdomen/Pelvis without Cont Date of Exam: 05/25 09/14 Exam# [id number] Ordering Dr: Gem Gamboa MD PROCEDURE: ABDOMEN/PELVIS WITHOUT CONT REASON FOR EXAM: History of left ureteral calculus. TECHNIQUE: Abdomen and pelvis CT without intravenous contrast. No oral contrast. COMPARISON: Comparison is made with prior study dated May 13, 2024. FINDINGS: Noncontrast technique limits evaluation of the abdominal and pelvic viscera. Lung bases: Stable minimal increased markings at the lung bases suggestive of mild scarring and/or atelectasis. Coronary artery calcification. Liver: Unremarkable. Gallbladder: Surgically absent. Spleen: Small calcified splenic granulomas. Pancreas: Unremarkable. Adrenals: Unremarkable. Kidneys: There is a 4.5 mm nonobstructive calculus in the central calyx of the right kidney. A punctate calcification is seen in the lower pole calyx of the right kidney. The previously seen left ureteral calculus is not seen at this time. Bladder: There is evidence of a cystocele. Reproductive Organs: Prior hysterectomy. Adnexal regions are unremarkable. Bowel: Unremarkable. Appendix: Prior appendectomy. Lymph nodes: No suspicious lymph node enlargement. Vasculature: Atherosclerotic calcification of the abdominal aorta and the major visceral branches. Peritoneum / Retroperitoneum: No ascites. No free air. Once again, there is evidence of increased markings within the omental fat in the root of the mesentery. This is nonspecific and may represent what we call a ailyn omentum. Prior anterior ventral hernia repair with a mesh. Bones: Degenerative changes of the spine. Almost complete collapse of the L3 vertebrae. CT/Abdomen/Pelvis without Cont IMPRESSION: The previously seen left ureteral calculus is not seen. Nonobstructive right intrarenal calculi. Stable ailyn omentum with increased markings in the omental fat in the root of the mesentery. One or more dose reduction techniques were used (e.g., Automated exposure control, adjustment of the mA and/or kV according to patient size, use of iterative reconstruction technique). Reading Location: [id number] CC: Dr. Gem Gamboa MD; Dr. Marilee Jiang DO Correspondence Specialist: Signed Normal [facility] Basic Metabolic Profile (BMP )on 06-03-2024 BUN/CRE 20.4 RATIO High 10-20 [facility] Comment on above: Performed By: #### L 500.2500 #### [facility] [address] [facility], [address] CA,Total 10.0 mg/dL Normal 8.5-10.1 [facility] Comment on above: Performed By: #### L 500.2500 #### [facility] [address] [facility], [address] Chloride [Moles/Vol] 101 mmol/L Normal 98-107 [facility] Comment on above: Performed By: #### L 500.2500 #### [facility] [address] [facility], [address] CO2 [Moles/Vol] 29.0 mmol/L Normal 21.0-32.0 [facility] Comment on above: Performed By: #### L 500.2500 #### [facility] [address] [place], [address] Creatinine [Mass/Vol] 0.59 mg/dL Normal 0.55-1.02 [facility] Comment on above: Result Comment: The validity of the calculated GFR GFRAA in patients over 70 years has not been determined. Clinical correlation is essential. Performed By: #### L 500.2500 #### [facility] [address] [place], [address] EST GFR - AA 126 mL/min Normal >60 [facility] Comment on above: Result Comment: Afri can Fijian GFR Calc Performed By: #### L 500.2500 #### [facility] [address] [place], [address] GAP 8 Normal 5-15 [facility] Comment on above: Performed By: #### L 500.2500 #### [facility] [address] [place], [address] GFR/1.73 sq M.predicted among non-blacks MDRD (S/P/Bld) [Vol rate/Area] 104 mL/min/{1.73_m2} Normal >60 [facility] Comment on above: Result Comment: Non- GFR Calc Performed By: #### L 500.2500 #### [facility] [address] [place], [address] Glucose [Mass/Vol] 150 mg/dL High 74-106 [facility] Comment on above: Result Comment: Fast ing Glucose result greater than or equal to 126 mg/dL suggests DIABETES MELLITUS per A.D.A. criteria. Performed By: #### L 500.2500 #### [facility] [address] [place], [address] Potassium [Moles/Vol] 3.3 mmol/L Low 3.5-5.1 [facility] Comment on above: Performed By: #### L 500.2500 #### [facility] [address] [place], [place], [address] Sodium [Moles/Vol] 138 mmol/L Normal 136-145 [facility] Comment on above: Performed By: #### L 500.2500 #### [facility] [address] [place], [place], [address] Urea nitrogen [Mass/Vol] 12 mg/dL Normal 7-18 [facility] Comment on above: Performed By: #### L 500.2500 #### [facility] [address] [place], [place], [address] Blood urea nitrogen (BUN)/cr eatinine ratioOrdered By: Gem Gamboa on 06-03-2024 Urea nitrogen/Creatinine [Mass ratio] 20.4 mg/mg High 10-20 [facility] Carbon dioxide measurementOr dered By: Gem Gamboa on 06-03-2024 CO2 [Moles/Vol] 29.0 mmol/L 21.0-32.0 [facility] Chloride measurementOrdered By: Gem Gamboa on 06-03-2024 Chloride [Moles/Vol] 101 mmol/L 98-107 [facility] Estimated glomerular filtrat ion rate (GFR) AmericanOrdered By: Gem Gamboa on 06-03-2024 Estimated GFR (MDRD) Amer 126 mL/min >60 [facility] Comment on above: GFR Calc Glomerular filtration rate ( GFR) estimationOrdered By: Gem Gamboa on 06-03-2024 Estimated GFR (MDRD) Non-Af Amer 104 mL/min >60 [facility] Comment on above: Non- GFR Calc GFR/1.73 sq M.predicted among non-blacks MDRD (S/P/Bld) [Vol rate/Area] 104 mL/min/{1.73_m2} >60 [facility] Comment on above: Non- GFR Calc Glucose measurementOrdered B y: Gem Gamboa on 06-03-2024 Glucose [Mass/Vol] 150 mg/dL High 74-106 [facility] Comment on above: Fasting Glucose resu lt greater than or equal to 126 mg/dL suggests DIABETES MELLITUS per A.D.A. criteria. Potassium measurementOrdered By: Gem Gamboa on 06-03-2024 Potassium [Moles/Vol] 3.3 mmol/L Low 3.5-5.1 [facility] Serum anion gap measurementO rdered By: Gem Gamboa on 06-03-2024 Anion gap [Moles/Vol] 8 mmol/L 5-15 [facility] Serum or plasma calcium bhavani urement (mass/volume)Ordered By: Gem Gamboa on 06-03-2024 Calcium [Mass/Vol] 10.0 mg/dL 8.5-10.1 [facility] Serum or plasma creatinine m easurement (mass/volume)Ordered By: Gem Gamboa on 06-03-2024 Creatinine [Mass/Vol] 0.59 mg/dL 0.55-1.02 [facility] Comment on above: The validity of the calculated GFR & GFRAA in patients over 70 years has not been determined. Clinical correlation is essential. Serum or plasma urea nitroge n measurement (mass/volume)Ordered By: Gem Gamboa on 06-03-2024 Urea nitrogen [Mass/Vol] 12 mg/dL 7-18 [facility] Sodium levelOrdered By: Susan Gamboa on 06-03-2024 Sodium [Moles/Vol] 138 mmol/L 136-145 [facility] Abdomen/Pelvis WITH Contrast on 05-13-2024 Abdomen/Pelvis WITH Contrast [facility] Imaging Services [address] [place] [address] [id number] Abdomen/Pelvis WITH Contrast MR#: [id number] Acct: [id number] Name: LAZARA SHANE Rep #: [id number] : 1940 F 83 From: Marcia pulido MD PCP: Dr. Marilee Jiang, Status: REG CLI Study: Abdomen/Pelvis WITH Contrast Date of Exam: Exam# [id number] Ordering Dr: Marilee Jiang DO [id number] HISTORY: ABD PAIN,WEIGHTLOSS. TECHNIQUE: Helically acquired images were obtained of the abdomen and pelvis after the intravenous administration of 100 mL Isovue-370. A radiation dose optimization technique was used for this scan. 448 images. COMPARISON: 10/14/2020. FINDINGS: LOWER CHEST: Minimal atelectasis in the lower lobes. Coronary artery calcification present. BOWEL: Mild hiatal hernia. Bowel nondilated. Appendix not visualized. No focal pericolonic inflammatory change observed. PERITONEUM: No significant ascites. Unchanged mild mesenteric panniculitis. LIVER: No enhancing mass. Fatty infiltration. GALLBLADDER/BILIARY TREE: Cholecystectomy with chronic mild biliary ductal dilatation. SPLEEN: Multiple hypodensities again seen. PANCREAS/ADRENAL GLANDS: Unremarkable. KIDNEYS: Mild left hydronephrosis and renal edema secondary to a 4 mm proximal ureteral calculus. 4 mm right lower pole calculus without hydronephrosis. Stable bilateral subcentimeter cysts which do not require follow-up. VESSELS: No abdominal aortic aneurysm. Advanced atherosclerosis of the branches of the abdominal aorta. PELVIC ORGANS: Hysterectomy. ABDOMINAL WALL: Unchanged appearance of anterior mesh repair. BONES: Old right lower rib fractures. Moderate L3 compression fracture, new from prior. Degenerative change and osteopenia. CT/Abdomen/Pelvis WITH Contrast IMPRESSION: Mild left hydronephrosis secondary to a 4 mm proximal ureteral calculus. 4 mm nonobstructing right renal calculus. Moderate L3 compression fracture, likely subacute. Several chronic findings as above. Electronically Signed: Marcia Landis MD at 15:33 EST Reading Location ID and State: [facility] [place] Tel , Service support , CC: Dr. Marilee Jiang DO Correspondence Specialist: Signed Normal [facility] Echo Completeon 05-12-2024 Echo Complete [facility] [address] [place] [address] Echo Complete 05/12/24 1304 MR#: [id number] Acct: [id number] Name: LAZARA SHANE Rep #: [id number] : 1940 83 From: Todd Lobo MD Attending Dr: Dr. Marilee Jiang DO Status: REG CL I Ordering Dr: Marilee Jiang DO Date: 05/12/24 Location: [facility] Sex: F C Admitted: Reason For Study: SOB Procedure This was a 2D Doppler, Color Flow transthoracic echocardiogram. Exam performed in department. Left Ventricle Normal LV size. The estimated ejection fraction is 57 %. Stage 1 diastolic dysfunction. No regional wall motion abnormalities noted. Right Ventricle Normal RV size. Normal systolic function. Atria The left atrium is mildly enlarged. Normal right atrium. Mitral Valve There is mild to moderate mitral annular calcification. Mild (1+) mitral valve insufficiency. Tricuspid Valve Normal tricuspid valve. Mild (1+) tricuspid valve insufficiency. Pulmonary artery systolic pressure is 30 mmHg. Aortic Valve Trisinus/trileaflet aortic valve. Mild focal aortic valve calcification. Peak aortic valve gradient 47 mmHg. Mean aortic valve gradient 24 mmHg. Pulmonic Valve Normal pulmonic valve. Great Vessels Calcified aortic root. The pulmonary artery is normal size. Inferior vena cava collapse with respiration. Pericardium/Pleural No pericardial effusion. MMode/2D Measurements Calculations LVIDd: 4.8 cm IVSd: 1.1 cm LVOT diam: 2.0 cm LVIDs: 3.0 cm LVPWd: 0.98 cm LVOT area: 3.1 cm2 RVDd: 4.0 cm FS: 38.6 % ___ Ao root diam: 3.4 cm LAV(MOD-bp): 72.2 ml LVAd ap4: 27.4 cm2 ACS: 0.77 cm LAV(MOD-bp) Indexed: 35.9 ml/m2 LVLd ap4: 7.5 cm LAV(MOD-sp2): 78.5 ml EDV(MOD-sp4): 79.1 ml LAV(MOD-sp4): 63.6 ml EDV(sp4-el): 85.2 ml LVAs ap4: 17.0 cm2 LVLs ap4: 6.8 cm ESV(MOD-sp4): 37.0 ml ESV(sp4-el): 36.2 ml EF(MOD-sp4): 53.2 % EF(sp4-el): 57.5 % ___ SV(MOD-sp4): 42.1 ml SV(sp4-el): 48.9 ml LA A4 area: 21.7 cm2 SI(MOD-sp4): 20.9 ml/m2 ___ LA dimension(2D): 4.3 cm RA A4 area: 19.7 cm2 TAPSE: 2.0 cm Time Measurements MV dec time: 0.24 sec Doppler Measurements Calculations MV E max abril: 102.5 cm/sec Lat Peak E' Abril: 8.4 cm/sec Med Peak E' Abril: 6.0 cm/sec MV A max abril: 110.2 cm/sec E/E' lat: 12.2 E/E' med: 17.2 MV E/A: 0.93 ___ MV V2 max: 124.0 cm/sec MV P1/2t max abril: 108.7 cm/sec Ao V2 max: 341.5 cm/sec MV max P.1 mmHg MV P1/2t: 77.3 msec Ao max P.7 mmHg MV V2 mean: 71.6 cm/sec Ao V2 mean: 223.1 cm/sec MV mean P.4 mmHg MV dec slope: 411.8 cm/sec2 Ao mean P.5 mmHg MV V2 VTI: 35.8 cm MVA(P1/2t): 2.8 cm2 Ao V2 VTI: 85.1 cm AV (velocity ratio): 0.25 MVA(VTI): 1.8 cm2 ÓSCAR(I,D): 0.77 cm2 ÓSCAR(V,D): 0.89 cm2 ___ LV V1 max: 98.6 cm/sec SV(LVOT): 65.7 ml PA V2 max: 93.7 cm/sec LV V1 max P.9 mmHg PA V2 mean: 64.6 cm/sec LV V1 mean P.1 mmHg LV V1 mean: 66.9 cm/sec LV V1 VTI: 21.2 cm ___ TR max abril: 262.5 cm/sec TR max P.6 mmHg ECHO/Echo Complete Interpretation Summary Normal LV size. The estimated ejection fraction is 57 %. No regional wall motion abnormalities noted. The left atrium is mildly enlarged. Stage 1 diastolic dysfunction. Mild focal aortic valve calcification. Mean aortic valve gradient 24 mmHg. Pulmonary artery systolic pressure is 30 mmHg. Ordering Physician: Marilee Jiang Referring Physician: Marilee Jiang Performed By: Joe Fountain RCS 05/12/24 1622 Date Todd Lobo MD CC: Dr. Marilee Jiang, Date Dictated: 05/12/24 1304 Date Transcribed: 05/12/241621 Correspondence Specialist: Signed Normal [facility] Protein Electroph, Son 05-07 Albumin [Mass/Vol] 3.2 g/dL Normal 2.9-4.4 [facility] Comment on above: Performed By: #### L 3100.3450, M100.2199, L4 #### [facility] [address] [place], [address] Albumin/Globulin [Mass ratio] 0.8 {ratio} Normal 0.7-1.7 [facility] Comment on above: Performed By: #### L 3100.3450, M1.2199, L4 #### [facility] [address] [place], [address] ALPHA-1 GLOBUL 0.3 g/dL Normal 0.0-0.4 [facility] Comment on above: Performed By: #### L 3100.3450, M100.2199, L4 #### [facility] [address] [place], [address] ALPHA-2 GLOBUL 0.9 g/dL Normal 0.4-1.0 [facility] Comment on above: Performed By: #### L 3100.3450, M100.2200, L4 #### [facility] [address] [place], [address] BETA GLOBULIN 1.2 g/dL Normal 0.7-1.3 [facility] Comment on above: Performed By: #### L 3100.3450, M100.2200, L400.2010 #### [facility] [address] [place], [address] GAMMA GLOBULIN 1.4 g/dL Normal 0.4-1.8 [facility] Comment on above: Performed By: #### L 3100.3450, M100.2200, L400.2010 #### [facility] [address] [place], [address] Globulin (S) [Mass/Vol] 3.9 g/dL Normal 2.2-3.9 [facility] Comment on above: Performed By: #### L 3100.3450, M100.2200, L400.2010 #### [facility] [address] [place], [address] INTERPRETATION Comment Normal . [facility] Comment on above: Result Comment: Prot ein electrophoresis scan will follow via computer, mail, or software development engineer delivery. Performed By: #### L 3100.3450, M100.2200, L400.2010 #### [facility] [address] [place], [address] M-SPIKE Not Observed Normal Not Observed [facility] Comment on above: Performed By: #### L 3100.3450, M100.2200, L400.2010 #### [facility] [address] [place], [address] NOTE: Comment Normal . [facility] Comment on above: Result Comment: The SPE pattern appears unremarkable. Evidence of monoclonal protein is not apparent. Performed at: [address] [id number] Riding Coach: Scott Garcia PhD, Phone: [phone] Performed By: #### L 3100.3450, M100.2200, L400.2010 #### [facility] [address] [place], [address] Protein [Mass/Vol] 7.1 g/dL Normal 6.0-8.5 [facility] Comment on above: Performed By: #### L 3100.3450, M100.2200, L400.2010 #### [facility] [address] [place], [address] Urine Cultureon 05-07-2024 URC Below infection leve l. Mixed Gram Positive Organisms [place] Count 1000-10,000 MIXC Mixed contaminants. Submit a new specimen if indicated. Normal [facility] Comment on above: Performed By: #### L 3100.3450, M100.2200, L400.2010 #### [facility] [address] [place], [place], [address] Addendum DocumentOrdered By: Marilee Jiang on 05-05-2024 Protein Electrophoresis Note Comment . [facility] Comment on above: The SPE pattern appe ars unremarkable. Evidence ofmonoclonal protein is not apparent.Performed at: [facility] [place] [id number] Director: Scott Garcia PhD, Phone: [phone] Albumin Elph [Mass/Vol]Order ed By: Marilee Jiang on 05-05-2024 Albumin [Mass/Vol] 3.2 g/dL 2.9-4.4 [facility] Albumin/Globulin Elph [Mass ratio]Ordered By: Marilee Jiang on 05-05-2024 Albumin/Globulin (PEP) 0.8 0.7-1.7 [facility] Jtvdd-2-awmwuagl measurement by protein electrophoresisOrdered By: Marilee Jiang on 05-05-2024 Prizp-6-Vhanjbmhq 0.3 g/dL 0.0-0.4 [facility] Jjzvh-0-sjkwrrxn measurement by protein electrophoresisOrdered By: Marilee Jiang on 05-05-2024 Taovv-0-Xhhalxiyx 0.9 g/dL 0.4-1.0 [facility] Beta globulin Elph [Mass/Vol ]Ordered By: Marilee Jiang on 05-05-2024 Beta Globulins 1.2 g/dL 0.7-1.3 [facility] Bilirubin Test strip Ql (U)O rdered By: Marilee Jiang on 05-05-2024 Bilirubin Ql (U) Negative Negative [facility] Gamma globulin measurement b y protein electrophoresisOrdered By: Marilee Jiang on 05-05-2024 Gamma Globulins 1.4 g/dL 0.4-1.8 [facility] Globulin (S) [Mass/Vol]Order ed By: Marilee Jiang on 05-05-2024 Globulin (PEP) 3.9 g/dL 2.2-3.9 [facility] Glucose Ql (U)Ordered By: Vashti Jiang on 05-05-2024 Glucose (U) [Mass/Vol] 100 mg/dL High Normal [facility] Ketones Test strip Ql (U)Ord ered By: Marilee Jiang on 05-05-2024 Ketones Ql (U) Negative Negative [facility] Nitrite Test strip Ql (U)Ord ered By: Marilee Jiang on 05-05-2024 Nitrite Ql (U) Negative Negative [facility] Protein Fractions Elph [Inte rp]Ordered By: Marilee Jiang on 05-05-2024 Protein Electrophoresis Interpret Comment . [facility] Comment on above: Protein electrophore sis scan will follow via computer,mail, or software development engineer delivery. Protein Test strip Ql (U)Ord ered By: Marilee Jiang on 05-05-2024 Protein Ql (U) 30 mg/dl High Negative [facility] Protein.monoclonal Elph [Mas s/Vol]Ordered By: Marilee Jiang on 05-05-2024 Protein Electrophoresis M-Sree Not Observed g/dL Not Observed [facility] Serum or plasma protein bhavani urement (mass/volume)Ordered By: Marilee Jiang on 05-05-2024 Protein [Mass/Vol] 7.1 g/dL 6.0-8.5 [facility] Urinalysis, Routine (Dipstic k)on 05-05-2024 BILIRUBIN URINE Negative Normal Negative [facility] Comment on above: Order Comment: COLOR OF URINE MAY AFFECT DIPSTICK RESULTS. CLEAN CATCH Performed By: #### L 3100.3450, M100.2200, L400.2010 #### [facility] [address] [place], [address] Clarity (U) Sl. Cloudy Normal Clear [facility] Comment on above: Order Comment: COLOR OF URINE MAY AFFECT DIPSTICK RESULTS. CLEAN CATCH Performed By: #### L 3100.3450, M100.2200, L400.2010 #### [facility] [address] [place], [address] Color (U) Mulu Normal Yellow [facility] Comment on above: Order Comment: COLOR OF URINE MAY AFFECT DIPSTICK RESULTS. CLEAN CATCH Performed By: #### L 3100.3450, M100.2200, L400.2010 #### [facility] [address] [place], [address] GLUCOSE, UR 100 mg/dl Abnormal Normal [facility] Comment on above: Order Comment: COLOR OF URINE MAY AFFECT DIPSTICK RESULTS. CLEAN CATCH Performed By: #### L 3100.3450, M100.2200, L400.2010 #### [facility] [address] [place], [address] KETONE UR Negative Normal Negative [facility] Comment on above: Order Comment: COLOR OF URINE MAY AFFECT DIPSTICK RESULTS. CLEAN CATCH Performed By: #### L 3100.3450, M100.2200, L400.2010 #### [facility] [address] [place], [address] LEUK ESTERASE 25 /ul Abnormal Negative [facility] Comment on above: Order Comment: COLOR OF URINE MAY AFFECT DIPSTICK RESULTS. CLEAN CATCH Performed By: #### L 3100.3450, M100.2200, L400.2010 #### [facility] [address] [place], [address] Nitrite Ql (U) Negative Normal Negative [facility] Comment on above: Order Comment: COLOR OF URINE MAY AFFECT DIPSTICK RESULTS. CLEAN CATCH Performed By: #### L 3100.3450, M100.2200, L400.2010 #### [facility] [address] [place], [address] OCCULT BLOOD-UR 250 /ul Abnormal Negative [facility] Comment on above: Order Comment: COLOR OF URINE MAY AFFECT DIPSTICK RESULTS. CLEAN CATCH Performed By: #### L 3100.3450, M100.2200, L400.2010 #### [facility] [address] [place], [address] pH UR 6.5 Normal 5.0 - 8.0 [facility] Comment on above: Order Comment: COLOR OF URINE MAY AFFECT DIPSTICK RESULTS. CLEAN CATCH Performed By: #### L 3100.3450, M100.2200, L400.2010 #### [facility] [address] [place], [address] PROT DIPSTX 30 mg/dl Abnormal Negative [facility] Comment on above: Order Comment: COLOR OF URINE MAY AFFECT DIPSTICK RESULTS. CLEAN CATCH Performed By: #### L 3100.3450, M100.2200, L400 #### [facility] [address] [place], [address] SP.GR. DIPSTX 1.015 Normal 1.002-1.03 0 [facility] Comment on above: Order Comment: COLOR OF URINE MAY AFFECT DIPSTICK RESULTS. CLEAN CATCH Performed By: #### L 3100.3450, M100.2200, L400.2010 #### [facility] [address] [place], [address] UROBILI Normal Normal Normal [facility] Comment on above: Order Comment: COLOR OF URINE MAY AFFECT DIPSTICK RESULTS. CLEAN CATCH Performed By: #### L 3100.3450, M100.2200, L400 #### [facility] [address] [place], [address] Urine blood detectionOrdered By: Marilee Jiang on 05-05-2024 Urine Occult Blood 250 /ul High Negative [facility] Urine clarityOrdered By: Yanique torsten Apolinar on 05-05-2024 Clarity (U) Sl. Cloudy Clear [facility] Urine color determinationOrd ered By: Marilee Jiang on 05-05-2024 Color (U) Mulu Yellow [facility] Urine cultureOrdered By: Yanique Jiang on 05-05-2024 Bacteria identified Cx Nom (U) Positive Abnormal [facility] Urine leukocyte esterase det ection by dipstickOrdered By: Marilee Jiang on 05-05-2024 Leukocyte esterase Test strip Ql (U) 25 /ul High Negative [facility] Urine pHOrdered By: Marilee cruz on 05-05-2024 pH (U) 6.5 [pH] 5.0 - 8.0 [facility] Urine specific gravity measu rementOrdered By: Marilee Jiang on 05-05-2024 Specific gravity (U) [Rel density] 1.015 1.002-1.03 0 [facility] Urobilinogen Ql (U)Ordered B y: Marilee Jiang on 05-05-2024 Urine Urobilinogen Normal mg/dl Normal [facility] Protein Electroph, Son 04-30 Albumin [Mass/Vol] 3.1 g/dL Normal 2.9-4.4 [facility] Comment on above: Order Comment: ADD O N BLOOD FROM 04/24/24 PER Performed By: #### M 100.2200 #### [facility] [address] [place], [place], [address] Albumin/Globulin [Mass ratio] 0.8 {ratio} Normal 0.7-1.7 [facility] Comment on above: Order Comment: ADD O N BLOOD FROM 04/24/24 PER Performed By: #### M 100.2200 #### [facility] [address] [place], [place], [phone] ALPHA-1 GLOBUL 0.3 g/dL Normal 0.0-0.4 [facility] Comment on above: Order Comment: ADD O N BLOOD FROM 04/24/24 PER Performed By: #### M 100.2200 #### [facility] [address] [place], [address] ALPHA-2 GLOBUL 1.0 g/dL Normal 0.4-1.0 [facility] Comment on above: Order Comment: ADD O N BLOOD FROM 04/24/24 PER Performed By: #### M 100.2200 #### [facility] [address] [place], [address] BETA GLOBULIN 1.2 g/dL Normal 0.7-1.3 [facility] Comment on above: Order Comment: ADD O N BLOOD FROM 04/24/24 PER Performed By: #### M 100.2200 #### [facility] [address] [place], [address] GAMMA GLOBULIN 1.5 g/dL Normal 0.4-1.8 [facility] Comment on above: Order Comment: ADD O N BLOOD FROM 04/24/24 PER Performed By: #### M 100.2200 #### [facility] [address] [place], [address] Globulin (S) [Mass/Vol] 4.0 g/dL High 2.2-3.9 [facility] Comment on above: Order Comment: ADD O N BLOOD FROM 04/24/24 PER Performed By: #### M 100.2200 #### [facility] [address] [place], [address] INTERPRETATION Comment Normal . [facility] Comment on above: Order Comment: ADD O N BLOOD FROM 04/24/24 PER Result Comment: Prot ein electrophoresis scan will follow via computer, mail, or software development engineer delivery. Performed By: #### M 100.2200 #### [facility] [address] [place], [address] M-SPIKE Not Observed Normal Not Observed [facility] Comment on above: Order Comment: ADD O N BLOOD FROM 04/24/24 PER Performed By: #### M 100.2200 #### [facility] [address] [place], [place], [address] NOTE: Comment Normal . [facility] Comment on above: Order Comment: ADD O N BLOOD FROM 04/24/24 PER Result Comment: The SPE pattern appears unremarkable. Evidence of monoclonal protein is not apparent. Performed at: [facility] [id number] Riding Coach: Scott Garcia PhD, Phone: [phone] Performed By: #### M 100.2200 #### [facility] [address] [place], [place], [address] Protein [Mass/Vol] 7.1 g/dL Normal 6.0-8.5 [facility] Comment on above: Order Comment: ADD O N BLOOD FROM 04/24/24 PER Performed By: #### M 100.2200 #### [facility] [address] [place], [address] L3410.9999on 04-28-2024 [facility] Misc. COMMENT Normal . [facility] Comment on above: Order Comment: PTH-N O TRESYLOL [id number] RELATED PEPTIDE FZ Result Comment: Test Ordered: [id number] PTHrP (PTH-Related Peptide) PTHrP (PTH-Related Peptide) <2.0 pmol/L Reference Range: . This test was developed and its performance characteristics determined by [facility]. It has not been cleared or approved by the Food and Drug Administration. Reference Range: All Ages: <2.0 The PTHrP assay should not be used to exclude cancer or screen tumor patients for humoral hypercalcemia of malignancy (HHM). The results should always be assessed in conjunction with the patient's medical history, clinical examination, and other findings. If test results are clinically discordant, please contact the laboratory. Performed at: [facility] [address] [place] [id number] Riding Coach: Larry Vicente MD, Phone: [phone] Performed at: [facility] [facility] [id number] Riding Coach: Scott Garcia PhD, Phone: [phone] Performed By: #### M 100.2200 #### [facility] [address] [place], [place], [address] Vitamin D 1,25-Dihydroxyon 0 04-27-2024 VIT D 1,25 DIHY 93.6 pg/mL Abnormal 24.8-81.5 [facility] Comment on above: Result Comment: Perf ormed at: [facility] [id number] Riding Coach: Saran Huynh MD, Phone: [phone] Performed By: #### M 1002200 #### [facility] [address] [place], [place], [address] 1,25-dihydroxyvitamin D3 [Ma ss/Vol]Ordered By: Marilee Jiang on 04-24-2024 Vitamin D 1,25-Dihydroxy 93.6 pg/mL High 24.8-81.5 [facility] Comment on above: Performed at: [address] [id number] Director: Saran Huynh MD, Phone: [phone] 18-AF-Iwzydij DOrdered By: Eleuterio Jiang on 04-24-2024 Vitamin D 25-Hydroxy 74.5 ng/mL [facility] Comment on above: Vitamin D 25(OH) Sta tus Range Deficiency <20 ng/mL (50nmol/L) Insufficiency 20 - 30 ng/mL (50 - 75 nmol/L) Sufficiency 30 - 100 ng/mL (75 - 250 nmol/L) Toxicity >100 ng/mL (>250 nmol/L) Addendum DocumentOrdered By: Marilee Jiang on 04-24-2024 Protein Electrophoresis Note Comment . [facility] Comment on above: The SPE pattern appe ars unremarkable. Evidence ofmonoclonal protein is not apparent.Performed at: [facility] [id number] [place], [place] [id number] Director: Scott Garcia PhD, Phone: [phone] Albumin Elph [Mass/Vol]Order ed By: Marilee Jiang on 04-24-2024 Albumin [Mass/Vol] 3.1 g/dL 2.9-4.4 [facility] Albumin/Globulin Elph [Mass ratio]Ordered By: Marilee Jiang on 04-24-2024 Albumin/Globulin (PEP) 0.8 0.7-1.7 [facility] Rildb-8-adzigdfk measurement by protein electrophoresisOrdered By: Marilee Jiang on 04-24-2024 Qyabe-4-Kqewdvysr 0.3 g/dL 0.0-0.4 [facility] Xpimj-6-evanrsmc measurement by protein electrophoresisOrdered By: Marilee Jiang on 04-24-2024 Egupm-9-Dngptixog 1.0 g/dL 0.4-1.0 [facility] Beta globulin Elph [Mass/Vol ]Ordered By: Marilee Jiang on 04-24-2024 Beta Globulins 1.2 g/dL 0.7-1.3 [facility] Calcium ionizedOrdered By: Eleuterio Jiang on 04-24-2024 Ionized Calcium 1.42 mmol/L High 1.09-1.30 [facility] Gamma globulin measurement b y protein electrophoresisOrdered By: Marilee Jiang on 04-24-2024 Gamma Globulins 1.5 g/dL 0.4-1.8 [facility] Globulin (S) [Mass/Vol]Order ed By: Marilee Jiang on 04-24-2024 Globulin (PEP) 4.0 g/dL High 2.2-3.9 [facility] Intact parathyroid hormone ( iPTH) measurementOrdered By: Marilee Jiang on 04-24-2024 Parathyroid Hormone (Intact) 7.9 pg/mL Low 18.4-80.1 [facility] L501.2276on 04-24-2024 Ionized Calcium 1.42 mmol/L High 1.09-1.30 [facility] Comment on above: Performed By: #### L 501.2276 #### [facility] [address] [place], [place], [address] No Panel InformationOrdered By: Marilee Jiang on 04-24-2024 Miscellaneous Test COMMENT . [facility] Comment on above: Test Ordered: [id number] PTHrP (PTH-Related Peptide)PTHrP (PTH-Related Peptide) <2.0 pmol/L Reference Range: .This test was developed and its performance characteristicsdetermined by [employer]. It has not been cleared or approvedby the Food and Drug Administration.Reference Range:All Ages: <2.0The PTHrP assay should not be used to exclude cancer orscreen tumor patients for humoral hypercalcemia ofmalignancy (HHM). The results should always be assessed inconjunction with the patient's medical history, clinicalexamination, and other findings. If test results areclinically discordant, please contact the laboratory.Performed at: [facility] [address] [id number] Director: Larry Vicente MD, Phone: [phone] at: [facility] [employer] [id number] Director: Scott Garcia PhD, Phone: [phone] PTHINon 04-24-2024 PTH 7.9 pg/mL Low 18.4-80.1 [facility] Comment on above: Performed By: #### L 3410.9999, L509.1000, L3100.3450, L506.1000, L3300.0960 #### [facility] [address] [place], [place], [id number] Protein Fractions Elph [Inte rp]Ordered By: Marilee Jiang on 04-24-2024 Protein Electrophoresis Interpret Comment . [facility] Comment on above: Protein electrophore sis scan will follow via computer,mail, or software development engineer delivery. Protein.monoclonal Elph [Mas s/Vol]Ordered By: Marilee Jiang on 04-24-2024 Protein Electrophoresis M-Sree Not Observed g/dL Not Observed [facility] Serum or plasma protein bhavani urement (mass/volume)Ordered By: Marilee Jiang on 04-24-2024 Protein [Mass/Vol] 7.1 g/dL 6.0-8.5 [facility] Vitamin D,25 Hydroxyon 04-24 Vitamin D 25-OH 74.5 ng/mL Normal [facility] Comment on above: Result Comment: Cristina min D 25(OH) Status Range Deficiency <20 ng/mL (50nmol/L) Insufficiency 20 - 30 ng/mL (50 - 75 nmol/L) Sufficiency 30 - 100 ng/mL (75 - 250 nmol/L) Toxicity >100 ng/mL (>250 nmol/L) Performed By: #### L 3410.9999, L509.1000, L3100.3450, L506.1000, L3300.0960 #### [facility] [address] [place], [place], [id number] Absolute neutrophil countOrd ered By: Marileetorsten Jiang on 04-21-2024 Neutrophils (Bld) [#/Vol] 4.3 10*3/uL 2.0-7.7 [facility] Albumin to globulin ratioOrd ered By: Marilee Jiang on 04-21-2024 Albumin/Globulin [Mass ratio] 0.7 {ratio} Low 0.9-2.4 [facility] Basophil percentageOrdered B y: Marilee Apolinar on 04-21-2024 Basophils/100 WBC (Bld) 0.8 % 0-1 [facility] Bilirubin, totalOrdered By: Marilee Jiang on 04-21-2024 Bilirubin [Mass/Vol] 0.50 mg/dL 0.20-1.00 [facility] Comment on above: For patients on eltr ombopag therapy, use of Dimension [place] TBIL is not recommended. Blood urea nitrogen (BUN)/cr eatinine ratioOrdered By: Marilee Jiang on 04-21-2024 Urea nitrogen/Creatinine [Mass ratio] 19.1 mg/mg 10-20 [facility] CBC W/Diff, Automatedon 03-25 Absolute Lymph 2.24 X10 3/uL Normal 0.83-4.51 [facility] Comment on above: Performed By: #### L 500.2500 #### [facility] [address] [place], [address] Absolute Neut 4.3 X10 3/uL Normal 2.0-7.7 [facility] Comment on above: Performed By: #### L 500.2500 #### [facility] [address] [place], [address] Basophils/100 WBC (Bld) 0.8 % Normal 0-1 [facility] Comment on above: Performed By: #### L 500.2500 #### [facility] [address] [place], [address] Eosinophils/100 WBC (Bld) 3.4 % Normal 0-5 [facility] Comment on above: Performed By: #### L 500.2500 #### [facility] [address] [place], [address] Erythrocyte distribution width (RBC) [Ratio] 17.0 % High 11.6-14.6 [facility] Comment on above: Performed By: #### L 500.2500 #### [facility] [address] [place], [address] Hematocrit (Bld) [Volume fraction] 36.7 % Low 37-47 [facility] Comment on above: Performed By: #### L 500.2500 #### [facility] [address] [place], [address] Hemoglobin (Bld) [Mass/Vol] 11.3 g/dL Low 12.0-15.0 [facility] Comment on above: Performed By: #### L 500.2500 #### [facility] [address] [place], [address] IG% 0.500 Normal 0.0-0.9 [facility] Comment on above: Result Comment: IG% - Immature Granulocytes (promyelocytes, myelocytes and metamyelocytes) > 1% indicates that a LEFT SHIFT is Present. Performed By: #### L 500.2500 #### [facility] [address] [place], [address] Lymphocytes/100 WBC (Bld) 28.6 % Normal 19-41 [facility] Comment on above: Performed By: #### L 500.2500 #### [facility] [address] [place], [address] MCH (RBC) [Entitic mass] 24.5 pg Low 27.0-32.0 [facility] Comment on above: Performed By: #### L 500.2500 #### [facility] [address] [place], [address] MCHC (RBC) [Mass/Vol] 30.8 g/dL Low 32-36 [facility] Comment on above: Performed By: #### L 500.2500 #### [facility] [address] [place], [address] MCV (RBC) [Entitic vol] 79.6 fL Low 81-99 [facility] Comment on above: Performed By: #### L 500.2500 #### [facility] [address] [place], [address] Monocytes/100 WBC (Bld) 11.4 % High 0-10 [facility] Comment on above: Performed By: #### L 500.2500 #### [facility] [address] [place], [address] Neutrophils/100 WBC (Bld) 55.3 % Normal 47-70 [facility] Comment on above: Performed By: #### L 500.2500 #### [facility] [address] [place], [address] Nucleated RBC (Bld) [#/Vol] 0 10*3/uL Normal 0-5 [facility] Comment on above: Performed By: #### L 500.2500 #### [facility] [address] [place], [address] Platelet mean volume (Bld) [Entitic vol] 8.9 fL Normal 6.2-12.0 [facility] Comment on above: Performed By: #### L 500.2500 #### [facility] [address] [place], [address] Platelets (Bld) [#/Vol] 420 10*3/uL Normal 150-450 [facility] Comment on above: Performed By: #### L 500.2500 #### [facility] [address] [place], [address] RBC (Bld) [#/Vol] 4.61 10*6/uL Normal 4.2-5.4 [facility] Comment on above: Performed By: #### L 500.2500 #### [facility] [address] [place], [address] RDW SD 49.0 fl High 35.1-43.9 [facility] Comment on above: Performed By: #### L 500.2500 #### [facility] [address] [place], [address] WBC (Bld) [#/Vol] 7.8 10*3/uL Normal 4.4-11.0 [facility] Comment on above: Performed By: #### L 500.2500 #### [facility] [address] [place], [address] Carbon dioxide measurementOr dered By: Marilee Jiang on 04-21-2024 CO2 [Moles/Vol] 29.0 mmol/L 21.0-32.0 [facility] Chloride measurementOrdered By: Marilee Jiang on 04-21-2024 Chloride [Moles/Vol] 99 mmol/L 98-107 [facility] Comprehensive Metabolic Prof ilon 04-21-2024 Albumin [Mass/Vol] 3.3 g/dL Normal 3.2-5.0 [facility] Comment on above: Performed By: #### L 500.2500 #### [facility] [address] [place], [address] Albumin/Globulin [Mass ratio] 0.7 {ratio} Low 0.9-2.4 [facility] Comment on above: Performed By: #### L 500.2500 #### [facility] [address] [place], [address] ALK P 62 U/L Normal 45-117 [facility] Comment on above: Performed By: #### L 500.2500 #### [facility] [address] [place], [address] ALT [Catalytic activity/Vol] 22 U/L Normal 13-56 [facility] Comment on above: Performed By: #### L 500.2500 #### [facility] [address] [place], [address] AST [Catalytic activity/Vol] 27 U/L Normal 15-37 [facility] Comment on above: Performed By: #### L 500.2500 #### [facility] [address] [place], [address] Bilirubin [Mass/Vol] 0.50 mg/dL Normal 0.20-1.00 [facility] Comment on above: Result Comment: For patients on eltrombopag therapy, use of Dimension [place] TBIL is not recommended. Performed By: #### L 500.2500 #### [facility] [address] [place], [address] BUN/CRE 19.1 RATIO Normal 10-20 [facility] Comment on above: Performed By: #### L 500.2500 #### [facility] [address] [place], [address] CA,Total 10.6 mg/dL High 8.5-10.1 [facility] Comment on above: Performed By: #### L 500.2500 #### [facility] [address] [place], [address] Chloride [Moles/Vol] 99 mmol/L Normal 98-107 [facility] Comment on above: Performed By: #### L 500.2500 #### [facility] [address] [place], [address] CO2 [Moles/Vol] 29.0 mmol/L Normal 21.0-32.0 [facility] Comment on above: Performed By: #### L 500.2500 #### [facility] [address] [place], [address] Creatinine [Mass/Vol] 0.63 mg/dL Normal 0.55-1.02 [facility] Comment on above: Result Comment: The validity of the calculated GFR GFRAA in patients over 70 years has not been determined. Clinical correlation is essential. Performed By: #### L 500.2500 #### [facility] [address] [place], [address] EST GFR - AA 116 mL/min Normal >60 [facility] Comment on above: Result Comment: Afri can Fijian GFR Calc Performed By: #### L 500.2500 #### [facility] [address] [place], [address] GAP 8 Normal 5-15 [facility] Comment on above: Performed By: #### L 500.2500 #### [facility] [address] [place], [address] GFR/1.73 sq M.predicted among non-blacks MDRD (S/P/Bld) [Vol rate/Area] 96 mL/min/{1.73_m2} Normal >60 [facility] Comment on above: Result Comment: Non- GFR Calc Performed By: #### L 500.2500 #### [facility] [address] [place], [address] Globulin (S) [Mass/Vol] 5.0 g/dL High 2.2-4.2 [facility] Comment on above: Performed By: #### L 500.2500 #### [facility] [address] [place], [address] Glucose [Mass/Vol] 101 mg/dL Normal 74-106 [facility] Comment on above: Result Comment: Fast ing Glucose result from 100 to 125 mg/dL suggests IMPAIRED HOMEOSTASIS per A.D.A. criteria. Performed By: #### L 500.2500 #### [facility] [address] [place], [address] Potassium [Moles/Vol] 3.8 mmol/L Normal 3.5-5.1 [facility] Comment on above: Performed By: #### L 500.2500 #### [facility] [address] [place], [address] Sodium [Moles/Vol] 136 mmol/L Normal 136-145 [facility] Comment on above: Performed By: #### L 500.2500 #### [facility] [address] [place], [address] T PROT 8.3 g/dL High 6.4-8.2 [facility] Comment on above: Performed By: #### L 500.2500 #### [facility] [address] [place], [address] Urea nitrogen [Mass/Vol] 12 mg/dL Normal 7-18 [facility] Comment on above: Performed By: #### L 500.2500 #### [facility] [address] [place], [address] Eosinophil percentageOrdered By: Marilee Jiang on 04-21-2024 Eosinophils/100 WBC (Bld) 3.4 % 0-5 [facility] Erythrocyte distribution wid th ratioOrdered By: Marilee Jiang on 04-21-2024 Erythrocyte distribution width (RBC) [Ratio] 17.0 % High 11.6-14.6 [facility] Erythrocyte distribution wid th standard deviationOrdered By: Marilee Jiang on 04-21-2024 Erythrocyte distribution width (RBC) [Entitic vol] 49.0 fL High 35.1-43.9 [facility] Estimated glomerular filtrat ion rate (GFR) AmericanOrdered By: Marilee Jiang on 04-21-2024 Estimated GFR (MDRD) Amer 116 mL/min >60 [facility] Comment on above: GFR Calc Ferritinon 04-21-2024 Ferritin [Mass/Vol] 28 ng/mL Normal 8-252 [facility] Comment on above: Performed By: #### L 500.2500 #### [facility] [place], [address] Ferritin measurementOrdered By: Marilee Jiang on 04-21-2024 Ferritin [Mass/Vol] 28 ng/mL 8-252 [facility] Glomerular filtration rate ( GFR) estimationOrdered By: Marilee Jiang on 04-21-2024 Estimated GFR (MDRD) Non-Af Amer 96 mL/min >60 [facility] Comment on above: Non- GFR Calc Glucose measurementOrdered B y: Marilee Jiang on 04-21-2024 Glucose [Mass/Vol] 101 mg/dL 74-106 [facility] Comment on above: Fasting Glucose resu lt from 100 to 125 mg/dL suggests IMPAIRED HOMEOSTASIS per A.D.A. criteria. Hematocrit Auto (Bld) [Volum e fraction]Ordered By: Marilee Jiang on 04-21-2024 Hematocrit (Bld) [Volume fraction] 36.7 % Low 37-47 [facility] Hemoglobin measurementOrdere d By: Marilee Jiang on 04-21-2024 Hemoglobin (Bld) [Mass/Vol] 11.3 g/dL Low 12.0-15.0 [facility] Immature granulocytes/100 WB C Auto (Bld)Ordered By: Marilee Jiang on 04-21-2024 Immature granulocytes/100 WBC (Bld) 0.500 % 0.0-0.9 [facility] Comment on above: IG% - Immature Granu locytes (promyelocytes, myelocytes and metamyelocytes) > 1% indicates that a LEFT SHIFT is Present. Ironon 04-21-2024 Iron [Mass/Vol] 31 ug/dL Low 50-170 [facility] Comment on above: Performed By: #### L 500.2500 #### [facility] [address] [place], [place], [id number] Iron (Unsp spec) [Mass/Mass] Ordered By: Marilee Jiang on 04-21-2024 Iron [Mass/Vol] 31 ug/dL Low 50-170 [facility] - Chemistry and C hemistry - challengeOrdered By: Marilee Jiang on 04-21-2024 AST [Catalytic activity/Vol] 27 U/L 15-37 [facility] Lipaseon 04-21-2024 Lipase [Catalytic activity/Vol] 28 U/L Normal 13-75 [facility] Comment on above: Result Comment: Galindo brooks note: LIPASE revised reference range effective 22. New Lipase methodology. Expected to produce lower values than the previous assay method. NEW Reference Range: 13 - 75 U/L Performed By: #### L 500.2500 #### [facility] [address] [place], [place], [address] Lipase measurementOrdered By : Marilee Jiang on 04-21-2024 Lipase [Catalytic activity/Vol] 28 U/L 13-75 [facility] Comment on above: Please note:LIPASE r evised reference range effective 22. New Lipase methodology. Expected to produce lower values than the previous assay method. NEW Reference Range: 13 - 75 U/L Lymphocytes Auto (Unsp spec) [#/Vol]Ordered By: Marilee Jiang on 04-21-2024 Lymphocytes (Bld) [#/Vol] 2.24 10*3/uL 0.83-4.51 [facility] Lymphocytes/100 WBC Auto (Un sp spec)Ordered By: Marilee Jiang on 04-21-2024 Lymphocytes/100 WBC (Bld) 28.6 % 19-41 [facility] MCV (mean corpuscular volume ) determinationOrdered By: Marilee Jiang on 04-21-2024 MCV (RBC) [Entitic vol] 79.6 fL Low 81-99 [facility] Mean corpuscular hemoglobin (MCH) determinationOrdered By: Marilee Jiang on 04-21-2024 MCH (RBC) [Entitic mass] 24.5 pg Low 27.0-32.0 [facility] Mean corpuscular hemoglobin concentration (MCHC) determinationOrdered By: Marilee Jiang on 04-21-2024 MCHC (RBC) [Mass/Vol] 30.8 g/dL Low 32-36 [facility] Mean platelet volume determi nationOrdered By: Marilee Jiang on 04-21-2024 Platelet mean volume (Bld) [Entitic vol] 8.9 fL 6.2-12.0 [facility] Monocyte percentageOrdered B y: Marilee Jiang on 04-21-2024 Monocytes/100 WBC (Bld) 11.4 % High 0-10 [facility] Neutrophil percentageOrdered By: Marilee Jiang on 04-21-2024 Neutrophils/100 WBC (Bld) 55.3 % 47-70 [facility] Nucleated red blood cell per centageOrdered By: Marilee Jiang on 04-21-2024 Nucleated RBC/100 WBC (Bld) [Ratio] 0 % 0-5 [facility] Platelet countOrdered By: Vashti Jiang on 04-21-2024 Platelets (Bld) [#/Vol] 420 10*3/uL 150-450 [facility] Potassium measurementOrdered By: Marilee Jiang on 04-21-2024 Potassium [Moles/Vol] 3.8 mmol/L 3.5-5.1 [facility] RBC Auto (Bld) [#/Vol]Ordere d By: Marilee Jiang on 04-21-2024 RBC (Bld) [#/Vol] 4.61 10*6/uL 4.2-5.4 [facility] Serum anion gap measurementO rdered By: Marilee Jiang on 04-21-2024 Anion gap [Moles/Vol] 8 mmol/L 5-15 [facility] Serum globulin measurementOr dered By: Marilee Jiang on 04-21-2024 Globulin (S) [Mass/Vol] 5.0 g/dL High 2.2-4.2 [facility] Serum or plasma alanine woodard otransferase (ALT) measurementOrdered By: Marilee Jiang on 04-21-2024 ALT [Catalytic activity/Vol] 22 U/L 13-56 [facility] Serum or plasma albumin bhavani urement (mass/volume)Ordered By: Marilee Jiang on 04-21-2024 Albumin [Mass/Vol] 3.3 g/dL 3.2-5.0 [facility] Serum or plasma alkaline keenan sphatase measurementOrdered By: Marilee Jiang on 04-21-2024 ALP [Catalytic activity/Vol] 62 U/L 45-117 [facility] Serum or plasma calcium bhavani urement (mass/volume)Ordered By: Marilee Jiang on 04-21-2024 Calcium [Mass/Vol] 10.6 mg/dL High 8.5-10.1 [facility] Serum or plasma creatinine m easurement (mass/volume)Ordered By: Marilee Jiang on 04-21-2024 Creatinine [Mass/Vol] 0.63 mg/dL 0.55-1.02 [facility] Comment on above: The validity of the calculated GFR & GFRAA in patients over 70 years has not been determined. Clinical correlation is essential. Serum or plasma urea nitroge n measurement (mass/volume)Ordered By: Marilee Jiang on 04-21-2024 Urea nitrogen [Mass/Vol] 12 mg/dL 7-18 [facility] Sodium levelOrdered By: Marileetorsten Jiang on 04-21-2024 Sodium [Moles/Vol] 136 mmol/L 136-145 [facility] Total proteinOrdered By: Yanique Jiang on 04-21-2024 Protein [Mass/Vol] 8.3 g/dL High 6.4-8.2 [facility] White blood cell (WBC) count Ordered By: Marileetorsten Jiang on 04-21-2024 WBC (Bld) [#/Vol] 7.8 10*3/uL 4.4-11.0 [facility] SCRN MAMM (CAD)W/DIONICIO BILATo n 04-15-2024 SCRN MAMM (CAD)W/DIONICIO BILAT [facility] [address] [place] [address] SCRN MAMM (CAD)W/DIONICIO BILAT MR#: [id number] Acct: [id number] Name: LAZARA SHANE Rep #: [id number] : 1940 F 83 From: Raoul Venegas MD PCP: Dr. Marilee Jiang DO Status: REG CLI Study: SCRN MAMM (CAD)W/DIONICIO BILAT Date of Exam: 03/24 08/14 Exam# [id number] Ordering Dr: Marilee Jiang DO [id number] MAMMOGRAPHY - BILATERAL SCREENING 3-D TOMOSYNTHESIS REASON FOR EXAM: Female, 83 years old. SCREENING PERTINENT HISTORY: No significant family history. TECHNIQUE: 2-D mammograms and 3-D Tomosynthesis of the breast (s) were performed. CAD was performed. COMPARISON: 04/03/2023 FINDINGS: The breast composition is composed of scattered fibroglandular density. Scattered benign calcifications are seen. No dense spiculated masses or suspicious microcalcifications are identified. No architectural distortion is identified. There is no skin thickening or retraction. There has been no significant change since the prior study. No change in the 1 cm oval circumscribed equal density mass in the upper-outer quadrant left breast consistent with an intramammary lymph node. No change in bilateral benign vascular calcifications which can be associated with coronary artery disease. BI/SCRN MAMM (CAD)W/DIONICIO BILAT IMPRESSION: No mammographic signs of malignancy. Routine yearly mammograms recommended. ASSESSMENT CATEGORY: BIRADS Category 2: Benign. A letter regarding these results will be sent to the patient by the facility within 30 days. FOLLOW UP RECOMMENDATION: Yearly follow up mammogram recommended. (A) Approximately 10% of breast cancers are not detected by mammography. A normal mammogram should not delay biopsy of a clinically suspicious abnormality. Electronically Signed: Raoul Venegas MD at 15:40 EST , CC: Dr. Marilee Jiang DO Correspondence Specialist: Signed Normal [facility] Basic Metabolic Profile (BMP )on 01-31-2024 BUN/CRE 26.4 RATIO High 02-09 [facility] Comment on above: Performed By: #### L 500.2500 #### [facility] [address] [place], [address] CA,Total 9.8 mg/dL Normal 8.5-10.1 [facility] Comment on above: Performed By: #### L 500.2500 #### [facility] [address] [place], [address] Chloride [Moles/Vol] 102 mmol/L Normal 98-107 [facility] Comment on above: Performed By: #### L 500.2500 #### [facility] [address] [place], [address] CO2 [Moles/Vol] 26.0 mmol/L Normal 21.0-32.0 [facility] Comment on above: Performed By: #### L 500.2500 #### [facility] [address] [place], [address] Creatinine [Mass/Vol] 0.64 mg/dL Normal 0.55-1.02 [facility] Comment on above: Result Comment: The validity of the calculated GFR GFRAA in patients over 70 years has not been determined. Clinical correlation is essential. Performed By: #### L 500.2500 #### [facility] [address] [place], [address] EST GFR - AA 113 mL/min Normal >60 [facility] Comment on above: Result Comment: Afri can Fijian GFR Calc Performed By: #### L 500.2500 #### [facility] [address] [place], [address] GAP 6 Normal 5-15 [facility] Comment on above: Performed By: #### L 500.2500 #### [facility] [address] [place], [address] GFR/1.73 sq M.predicted among non-blacks MDRD (S/P/Bld) [Vol rate/Area] 93 mL/min/{1.73_m2} Normal >60 [facility] Comment on above: Result Comment: Non- GFR Calc Performed By: #### L 500.2500 #### [facility] [address] [place], [address] Glucose [Mass/Vol] 198 mg/dL High 74-106 [facility] Comment on above: Result Comment: Fast ing Glucose result greater than or equal to 126 mg/dL suggests DIABETES MELLITUS per A.D.A. criteria. Performed By: #### L 500.2500 #### [facility] [address] [place], [address] Potassium [Moles/Vol] 4.1 mmol/L Normal 3.5-5.1 [facility] Comment on above: Performed By: #### L 500.2500 #### [facility] [address] [place], [address] Sodium [Moles/Vol] 134 mmol/L Low 136-145 [facility] Comment on above: Performed By: #### L 500.2500 #### [facility] [address] [place], [address] Urea nitrogen [Mass/Vol] 17 mg/dL Normal 7-18 [facility] Comment on above: Performed By: #### L 500.2500 #### [facility] [address] [place], [address] Basic Metabolic Profile (BMP )on 01-02-2024 BUN/CRE 15.6 RATIO Normal 10-20 [facility] Comment on above: Performed By: #### M 100.2200 #### [facility] [address] [place], [address] CA,Total 9.2 mg/dL Normal 8.5-10.1 [facility] Comment on above: Performed By: #### M 100.2200 #### [facility] [address] [place], [address] Chloride [Moles/Vol] 100 mmol/L Normal 98-107 [facility] Comment on above: Performed By: #### M 100.2200 #### [facility] [address] [place], [address] CO2 [Moles/Vol] 22.0 mmol/L Normal 21.0-32.0 [facility] Comment on above: Performed By: #### M 100.2200 #### [facility] [address] [place], [address] Creatinine [Mass/Vol] 0.64 mg/dL Normal 0.55-1.02 [facility] Comment on above: Result Comment: The validity of the calculated GFR GFRAA in patients over 70 years has not been determined. Clinical correlation is essential. Performed By: #### M 100.2200 #### [facility] [address] [place], [address] ECRCL 63.27 ml/min Normal [facility] Comment on above: Performed By: #### M 100.2200 #### [facility] [address] [place], [address] EST GFR - AA 114 mL/min Normal >60 [facility] Comment on above: Result Comment: Afri can Fijian GFR Calc Performed By: #### M 100.2200 #### [facility] [address] [place], [address] GAP 13 Normal 5-15 [facility] Comment on above: Performed By: #### M 100.2200 #### [facility] [address] [place], [address] GFR/1.73 sq M.predicted among non-blacks MDRD (S/P/Bld) [Vol rate/Area] 94 mL/min/{1.73_m2} Normal >60 [facility] Comment on above: Result Comment: Non- GFR Calc Performed By: #### M 100.2200 #### [facility] [address] [place], [address] Glucose [Mass/Vol] 185 mg/dL High 74-106 [facility] Comment on above: Result Comment: Fast ing Glucose result greater than or equal to 126 mg/dL suggests DIABETES MELLITUS per A.D.A. criteria. Performed By: #### M 100.2200 #### [facility] [address] [place], [address] Potassium [Moles/Vol] 3.7 mmol/L Normal 3.5-5.1 [facility] Comment on above: Performed By: #### M 100.2200 #### [facility] [address] [place], [address] Sodium [Moles/Vol] 135 mmol/L Low 136-145 [facility] Comment on above: Performed By: #### M 100.2200 #### [facility] [address] [place], [address] Urea nitrogen [Mass/Vol] 10 mg/dL Normal 7-18 [facility] Comment on above: Performed By: #### M 100.2200 #### [facility] [address] [place], [address] CBC W/Diff, Automatedon 12-22 Absolute Lymph 3.10 X10 3/uL Normal 0.83-4.51 [facility] Comment on above: Performed By: #### M 100.2200 #### [facility] [address] [place], [address] Absolute Neut 5.2 X10 3/uL Normal 2.0-7.7 [facility] Comment on above: Performed By: #### M 100.2200 #### [facility] [address] [place], [address] Basophils/100 WBC (Bld) 0.5 % Normal 0-1 [facility] Comment on above: Performed By: #### M 100.2200 #### [facility] [address] [place], [address] Eosinophils/100 WBC (Bld) 0.1 % Normal 0-5 [facility] Comment on above: Performed By: #### M 100.2200 #### [facility] [address] [place], [address] Erythrocyte distribution width (RBC) [Ratio] 16.6 % High 11.6-14.6 [facility] Comment on above: Performed By: #### M 100.2200 #### [facility] [address] [place], [address] Hematocrit (Bld) [Volume fraction] 34.6 % Low 37-47 [facility] Comment on above: Performed By: #### M 100.2200 #### [facility] [address] [place], [address] Hemoglobin (Bld) [Mass/Vol] 11.2 g/dL Low 12.0-15.0 [facility] Comment on above: Performed By: #### M 100.2200 #### [facility] [address] [place], [address] IG% 1.900 High 0.0-0.9 [facility] Comment on above: Result Comment: IG% - Immature Granulocytes (promyelocytes, myelocytes and metamyelocytes) > 1% indicates that a LEFT SHIFT is Present. Performed By: #### M 100.2200 #### [facility] [address] [place], [address] Lymphocytes/100 WBC (Bld) 32.3 % Normal 19-41 [facility] Comment on above: Performed By: #### M 100.2200 #### [facility] [address] [place], [address] MCH (RBC) [Entitic mass] 26.2 pg Low 27.0-32.0 [facility] Comment on above: Performed By: #### M 100.2200 #### [facility] [address] [place], [address] MCHC (RBC) [Mass/Vol] 32.4 g/dL Normal 32-36 [facility] Comment on above: Performed By: #### M 100.2200 #### [facility] [address] [place], [address] MCV (RBC) [Entitic vol] 81.0 fL Normal 81-99 [facility] Comment on above: Performed By: #### M 100.2200 #### [facility] [address] [place], [address] Monocytes/100 WBC (Bld) 10.8 % High 0-10 [facility] Comment on above: Performed By: #### M 100.2200 #### [facility] [address] [place], [address] Neutrophils/100 WBC (Bld) 54.4 % Normal 47-70 [facility] Comment on above: Performed By: #### M 100.2200 #### [facility] [address] [place], [address] Nucleated RBC (Bld) [#/Vol] 0 10*3/uL Normal 0-5 [facility] Comment on above: Performed By: #### M 100.2200 #### [facility] [address] [place], [address] Platelet mean volume (Bld) [Entitic vol] 9.6 fL Normal 6.2-12.0 [facility] Comment on above: Performed By: #### M 100.2200 #### [facility] [address] [place], [address] Platelets (Bld) [#/Vol] 250 10*3/uL Normal 150-450 [facility] Comment on above: Performed By: #### M 100.2200 #### [facility] [address] [place], [address] RBC (Bld) [#/Vol] 4.27 10*6/uL Normal 4.2-5.4 [facility] Comment on above: Performed By: #### M 100.2200 #### [facility] [address] [place], [address] RDW SD 48.9 fl High 35.1-43.9 [facility] Comment on above: Performed By: #### M 100.2200 #### [facility] [address] [place], [address] WBC (Bld) [#/Vol] 9.6 10*3/uL Normal 4.4-11.0 [facility] Comment on above: Performed By: #### M 100.2200 #### [facility] [address] [place], [address] Chest 1 View (Portable)on Chest 1 View (Portable) [facility] Imaging Services [address] [place] [address] Chest 1 View (Portable) MR#: [id number] Acct: [id number] Name: LAZARA SHANE Rep #: [id number] : 1940 F 83 From: Roshan Jones MD PCP: Dr. Marilee Jiang, DO Status: [facility] ER Study: Chest 1 View (Portable) Date of Exam: 01/02/24 Exam# [id number] Ordering Dr: Kartik March DO [id number] EXAM: XR CHEST, 1 VIEW CLINICAL INDICATION: cough TECHNIQUE: Frontal view of the chest. COMPARISON: No relevant prior studies available. FINDINGS: LUNGS AND PLEURAL SPACES: Unremarkable. No consolidation or edema. No pneumothorax. No effusion. HEART: Unremarkable. Cardiac silhouette not enlarged. MEDIASTINUM: Central airways and mediastinal contour are unremarkable. BONES/JOINTS: Unremarkable. No acute fracture. SOFT TISSUES: Unremarkable. RAD/Chest 1 View (Portable) IMPRESSION: No radiographic evidence of acute cardiopulmonary disease. Electronically Signed: Roshan Jones MD at 20:07 EDT , CC: Dr. Kartik March DO; Dr. Marilee Jiang DO Correspondence Specialist: Signed Normal [facility] Emergency Department Summary on 01-02-2024 Emergency Department Summary [facility] Medical Records Department [address] [place] [address] Emergency Department Summary 01/02/24 MR#: [id number] Acct: [id number] Name: LAZARA SHANE Rep #: [id number] : 1940 83 From: Kartik March DO PCP: Dr. Marilee Jiang DO Status:DEP ER Location: ED HPI HPI - Fall History of Present Illness Chief Complaint: Fall Informant: patient, friend and EMS Narrative Narrative: 83-year-old female states that she lives at home with her daughter and sustained a fall this evening. Patient states that she went to turn and lost her balance and Falling. She notes some soreness to the low back. Nursing notes that the patient reported hip pain but she is currently denying at this time. Patient's daughter recently tested positive for COVID. Patient states that she has had a cough over the past several days as well as diarrhea for about a week. She states she feels hungry. She denies head or neck pain from the fall. She was unable to get up on her own therefore EMS was called. [facility] Medical History Diarrhea Diabetes Gastroparesis Unsteady gait Shortness of breath Asthma Home Medications ???Medication ???Instructions ???Recorded ???Last Taken ???Type Cholecalciferol (Vitamin D3) 5,000 unit PO DAILY supplement 11/08/17 11/08/17 08:00 History [Vitamin D3] ascorbic acid (vitamin C) 500 mg 500 mg PO DAILY supplement 11/08/17 11/07/17 20:00 History capsule brimonidine 0.15 % eye drops 1 drp BID damaged eye 11/08/17 11/08/17 08:00 History calcium carbonate 600 mg PO QHS supplement 11/08/17 11/07/17 20:00 History cyanocobalamin (vitamin B-12) 500 1 tab PO DAILY@0800 supplement 11/08/17 11/08/17 08:00 History mcg tablet glimepiride 4 mg tablet 4 mg PO BID diabetes 11/08/17 11/08/17 08:00 History insulin glargine 100 unit/mL 18 unit subcut QHS diabetes 11/08/17 11/07/17 20:00 History subcutaneous solution (Lantus U-100 Insulin) losartan 50 mg tablet 75 mg PO DAILY blood pressure 11/08/17 11/08/17 08:00 History magnesium oxide 400 mg PO QHS supplement 11/08/17 11/07/17 20:00 History multivitamin (Daily Multiple 1 ea PO DAILY supplement 11/08/17 11/08/17 08:00 History tablet) omega-3 fatty acids-fish oil 340 1 ea PO DAILY supplement 11/08/17 11/08/17 08:00 History mg-1,000 mg capsule (Fish Oil) omeprazole 20 mg capsule,delayed 20 mg PO DAILY 11/08/17 11/08/17 08:00 History release pravastatin 10 mg tablet 10 mg PO QHS cholesterol 11/08/17 11/07/17 20:00 History Saccharomyces boulardii 250 mg 250 mg PO DAILY 11/30/20 Unknown History capsule (Daily Probiotic (S. boulardii)) insulin regular human 100 unit/mL 4 unit subcut 11/30/20 Unknown History injection solution pioglitazone 45 mg tablet (Actos) 45 mg PO DAILY 10/27/21 Unknown History cyclobenzaprine 5 mg tablet 5 mg PO BID PRN muscle spasm #10 08/03/23 Unknown Rx tabs hydrocodone-acetaminophen 5-325mg 1 tab PO Q6H PRN pain 3 days #10 08/03/23 Unknown Rx 5mg-325mg TABLETS Allergy/AdvReac Type Severity Reaction Status Date / Time levofloxacin (From Levaquin) Allergy Mild rash Verified 08/03/23 21:44 oxycodone Allergy Mild Swelling Verified 08/03/23 21:45 aspirin Allergy Rash Verified 08/03/23 21:44 codeine Allergy Rash Verified 08/03/23 21:44 NSAIDS (Non-Steroidal Allergy Rash Verified 08/03/23 21:44 Anti-Inflamma Penicillins Allergy Rash Verified 08/03/23 21:44 solifenacin (From Vesicare) Allergy Unknown Verified 08/03/23 21:44 Sulfa (Sulfonamide Allergy Rash Verified 08/03/23 21:44 Antibiotics) Family History Sister Breast cancer Mother CVA (cerebral vascular accident) Hypertension Father Diabetes Heart disease Surgical History History of knee replacement History of hysterectomy History of colonoscopy History of left inguinal hernia repair History of left inguinal hernia repair History of left inguinal hernia repair Social History household members: family Smoking Status: Former smoker substance use type: does not use ROS ROS ED Constitutional Constitutional ED: Denies chills, fever(s) or weight loss Eyes Eyes: Denies change in vision or diplopia ENT ENT ED: Denies ear pain, rhinorrhea or sore throat Cardiovascular Cardiovascular: Denies chest pain, orthopnea, palpitations or racing heartbeat Respiratory/Chest Respiratory/Chest: Reports cough; Denies dyspnea or orthopnea Gastrointestinal Gastrointestinal: Reports diarrhea; Denies abdominal pain, nausea or vomiting Genitourinary Genitourinary ED: Denies dysuria, hematuria or urinary frequency Musculoskeletal Muscu (more content not included)... Normal [facility] Liver Profileon 01-02-2024 Albumin [Mass/Vol] 3.3 g/dL Normal 3.2-5.0 [facility] Comment on above: Performed By: #### M 100.2775 #### [facility] [place], [address] ALK P 48 U/L Normal 45-117 [facility] Comment on above: Performed By: #### M 100.2200 #### [facility] [address] [place], [address] ALT [Catalytic activity/Vol] 26 U/L Normal 13-56 [facility] Comment on above: Performed By: #### M 100.2200 #### [facility] [address] [place], [address] AST [Catalytic activity/Vol] 27 U/L Normal 15-37 [facility] Comment on above: Performed By: #### M 100.2200 #### [facility] [address] [place], [address] Bilirubin [Mass/Vol] 0.50 mg/dL Normal 0.20-1.00 [facility] Comment on above: Result Comment: For patients on eltrombopag therapy, use of Dimension [place] TBIL is not recommended. Performed By: #### M 100.2200 #### [facility] [address] [place], [address] Bilirubin.direct [Mass/Vol] 0.18 mg/dL Normal 0.00-0.30 [facility] Comment on above: Performed By: #### M 100.2200 #### [facility] [address] [place], [address] Globulin (S) [Mass/Vol] 4.3 g/dL High 2.2-4.2 [facility] Comment on above: Performed By: #### M 100.2200 #### [facility] [address] [place], [address] T PROT 7.6 g/dL Normal 6.4-8.2 [facility] Comment on above: Performed By: #### M 100.2200 #### [facility] [address] [place], [address] M100.678on 01-02-2024 M100.678 Copy of report sent to Infection Control Printer MS#[id number] 01/03/24 0806 ROSA. FLUABV+SARS-CoV-2+RSV Pnl Resp EDE+probe FLUABV+SARS-CoV-2+RSV Pnl Resp EDE+probe FLUABV+SARS-CoV-2+RSV Pnl Resp EDE+probe SARS-CoV-2 (COVID 19) A Positive A INFLUENZA A Negative INFLUENZA B Negative RSV PCR Negative SARS-CoV-2 (COVID 19 PCR) * This is an amended result. * A prior result that was reported as final has been changed. 01/03/24805 by ROSA Normal [facility] Comment on above: Performed By: #### L 500.2500 #### [facility] [address] [facility] [place], [place], [address] Pelvis 1 or 2 Viewson 2023 Pelvis 1 or [address] [facility] [address] [place], [place] [address] Pelvis 1 or 2 Views MR#: [id number] Acct: [id number] Name: LAZARA SHANE Greg Rep #: [id number] : 1940 F 83 From: Roshan Jones MD PCP: Dr. Marilee Jiang DO Status: REG ER Study: Pelvis 1 or 2 Views Date of Exam: 01/02/24 Exam# [id number] Ordering Dr: Kartik March DO [id number] EXAM: XR PELVIS, 1 OR 2 VIEWS CLINICAL INDICATION: fall injury TECHNIQUE: Frontal view of the pelvis. COMPARISON: No relevant prior studies available. FINDINGS: BONES/JOINTS: Unremarkable. No displaced fracture. No destructive or sclerotic lesions. Note that overlapping bowel shadows may however obscure fine detail. Sacroiliac joints are unremarkable. No widening of the pubic symphysis. The articular structures are unremarkable. SOFT TISSUES: Unremarkable. No soft tissue swelling or gas. RAD/Pelvis 1 or 2 Views IMPRESSION: No evidence of displaced pelvic fracture. Electronically Signed: Roshan Jones MD at 20:08 EDT , CC: Dr. Kartik March DO; Dr. Marilee Jiang DO Correspondence Specialist: Signed Normal [facility] Spine Lumbar without Contras ton 01-02-2024 Spine Lumbar without Contrast [facility] Imaging Services [address] [place] [id number] Spine Lumbar without Contrast MR#: [id number] Acct: [id number] Name: LAZARA SHANE Rep #: [id number] : 1940 F 83 From: Roshan Jones MD PCP: Dr. Marilee Jiang DO Status: REG ER Study: Spine Lumbar without Contrast Date of Exam: Exam# [id number] Ordering Dr: Kartik March DO [id number] EXAM: CT LUMBAR SPINE WITHOUT INTRAVENOUS CONTRAST CLINICAL INDICATION: fall pain TECHNIQUE: Helically acquired images were obtained of the lumbar spine without intravenous contrast. 2D reformats were reviewed. This CT exam was performed using one or more of the following dose reduction techniques: automated exposure control, adjustment of the mA and/or kV according to patient size, and/or use of iterative reconstruction technique. COMPARISON: 06/01/2023 FINDINGS: VERTEBRAE: Bones are diffusely osteopenic. There are no fractures identified. No traumatic subluxation. No discrete lytic or blastic abnormality. DISCS/SPINAL CANAL/NEURAL FORAMINA: Unremarkable. Disc heights are preserved. No critical stenosis. VASCULATURE: Visualized abdominal aorta is not dilated. LYMPH NODES: Unremarkable. No retroperitoneal adenopathy. CT/Spine Lumbar without Contrast IMPRESSION: Diffuse osteopenia. There are no acute osseous abnormalities. Electronically Signed: Roshan Jones MD at 20:03 EDT , CC: Dr. Kartik March, DO; Dr. Marilee Jiang, DO Correspondence Specialist: Signed Normal [facility] Urinalysis, Completeon 01-01 RBC 0-5 SEEN Normal 0-5 [facility] Comment on above: Order Comment: CLEAN CATCH Performed By: #### L 500.2500 #### [facility] [address] [place], [address] BACTERIA 1+ /hpf Normal None Seen [facility] Comment on above: Order Comment: CLEAN CATCH Performed By: #### L 500.2500 #### [facility] [address] [place], [address] WBC 0-5 SEEN Normal 0-5 [facility] Comment on above: Order Comment: CLEAN CATCH Performed By: #### L 500.2500 #### [facility] [address] [place], [address] EPI,SQUAMOUS 0-5 SEEN Normal 5-10 [facility] Comment on above: Order Comment: CLEAN CATCH Performed By: #### L 500.2500 #### [facility] [address] [place], [address] Mucus Ql (Urine sed) 0 SEEN Normal [facility] Comment on above: Order Comment: CLEAN CATCH Performed By: #### L 500.2500 #### [facility] [address] [place], [address] Basic Metabolic Profile (BMP )on 12-21-2023 BUN/CRE 19.3 RATIO Normal 10-20 [facility] Comment on above: Performed By: #### L 500.2500 #### [facility] [address] [place], [address] CA,Total 9.7 mg/dL Normal 8.5-10.1 [facility] Comment on above: Performed By: #### L 500.2500 #### [facility] [address] [place], [address] Chloride [Moles/Vol] 102 mmol/L Normal 98-107 [facility] Comment on above: Performed By: #### L 500.2500 #### [facility] [address] [place], [address] CO2 [Moles/Vol] 27.0 mmol/L Normal 21.0-32.0 [facility] Comment on above: Performed By: #### L 500.2500 #### [facility] [address] [place], [address] Creatinine [Mass/Vol] 0.62 mg/dL Normal 0.55-1.02 [facility] Comment on above: Result Comment: The validity of the calculated GFR GFRAA in patients over 70 years has not been determined. Clinical correlation is essential. Performed By: #### L 500.2500 #### [facility] [address] [place], [address] EST GFR - AA 118 mL/min Normal >60 [facility] Comment on above: Result Comment: Afri can Fijian GFR Calc Performed By: #### L 500.2500 #### [facility] [address] [place], [address] GAP 6 Normal 5-15 [facility] Comment on above: Performed By: #### L 500.2500 #### [facility] [address] [place], [address] GFR/1.73 sq M.predicted among non-blacks MDRD (S/P/Bld) [Vol rate/Area] 98 mL/min/{1.73_m2} Normal >60 [facility] Comment on above: Result Comment: Non- GFR Calc Performed By: #### L 500.2500 #### [facility] [address] [place], [address] Glucose [Mass/Vol] 138 mg/dL High 74-106 [facility] Comment on above: Result Comment: Fast ing Glucose result greater than or equal to 126 mg/dL suggests DIABETES MELLITUS per A.D.A. criteria. Performed By: #### L 500.2500 #### [facility] [address] [place], [address] Potassium [Moles/Vol] 4.1 mmol/L Normal 3.5-5.1 [facility] Comment on above: Performed By: #### L 500.2500 #### [facility] [address] [place], [address] Sodium [Moles/Vol] 135 mmol/L Low 136-145 [facility] Comment on above: Performed By: #### L 500.2500 #### [facility] [address] [place], [address] Urea nitrogen [Mass/Vol] 12 mg/dL Normal 7-18 [facility] Comment on above: Performed By: #### L 500.2500 #### [facility] [address] [place], [address] Basophil percentageOrdered B y: Gem Gamboa on 06-18-2023 Chloride [Moles/Vol] 101 mmol/L 98-107 [facility] Glucose [Mass/Vol] 194 mg/dL 74-106 [facility] Comment on above: Fasting Glucose resu lt greater than or equal to 126 mg/dL suggests DIABETES MELLITUS per A.D.A. criteria. Potassium [Moles/Vol] 4.5 mmol/L 3.5-5.1 [facility] Sodium [Moles/Vol] 133 mmol/L 136-145 [facility] - Chemistry and C hemistry - challengeOrdered By: Gem Gamboa on 06-18-2023 CO2 [Moles/Vol] 26.0 mmol/L 21.0-32.0 [facility] Urea nitrogen/Creatinine [Mass ratio] 26.6 mg/mg 10-20 [facility] No Panel InformationOrdered By: Gem Gamboa on 06-18-2023 Estimated GFR (MDRD) Amer 107 mL/min >60 [facility] Comment on above: GFR Calc Estimated GFR (MDRD) Non-Af Amer 89 mL/min >60 [facility] Comment on above: Non- GFR Calc Serum or plasma calcium bhavani urement (mass/volume)Ordered By: Gem Gamboa on 06-18-2023 Calcium [Mass/Vol] 9.2 mg/dL 8.5-10.1 [facility] Serum or plasma creatinine m easurement (mass/volume)Ordered By: Gem Gamboa on 06-18-2023 Creatinine [Mass/Vol] 0.68 mg/dL 0.55-1.02 [facility] Comment on above: The validity of the calculated GFR & GFRAA in patients over 70 years has not been determined. Clinical correlation is essential. Serum or plasma urea nitroge n measurement (mass/volume)Ordered By: Gem Gamboa on 06-18-2023 Urea nitrogen [Mass/Vol] 18 mg/dL 7-18 [facility] Thin prep Papanicolaou smear with manual screeningOrdered By: Geminder Gamboa on 06-18-2023 Thin prep Papanicolaou smear with manual screening 6 5-15 [facility] Absolute lymphocyte countOrd ered By: Marilee Jiang on 04-20-2023 Lymphocytes Auto (Unsp spec) [#/Vol] 2.37 10*3/uL 0.83-4.51 [facility] Basophil percentageOrdered B y: Marilee Jiang on 04-20-2023 Basophils/100 WBC (Bld) 0.7 % 0-1 [facility] Bilirubin [Mass/Vol] 0.30 mg/dL 0.20-1.00 [facility] Comment on above: For patients on eltr ombopag therapy, use of Dimension [place] TBIL is not recommended. Chloride [Moles/Vol] 107 mmol/L 98-107 [facility] Cholesterol [Mass/Vol] 119 mg/dL <200 [facility] Comment on above: <200 mg/dL Desirable 200-240 mg/dL Borderline >240 mg/dL High Risk Eosinophils/100 WBC (Bld) 2.0 % 0-5 [facility] Glucose [Mass/Vol] 147 mg/dL 74-106 [facility] Comment on above: Fasting Glucose resu lt greater than or equal to 126 mg/dL suggests DIABETES MELLITUS per A.D.A. criteria. Neutrophils (Bld) [#/Vol] 4.4 10*3/uL 2.0-7.7 [facility] Neutrophils/100 WBC (Bld) 58.9 % 47-70 [facility] Potassium [Moles/Vol] 4.1 mmol/L 3.5-5.1 [facility] Protein [Mass/Vol] 7.8 g/dL 6.4-8.2 [facility] Sodium [Moles/Vol] 140 mmol/L 136-145 [facility] Triglyceride [Mass/Vol] 78 mg/dL <199 [facility] Comment on above: The drugs N-Acetylcy steine and Metamizole may falsely depress this assay.Serum Triglycerides Reference Interval Normal <150 mg/dL Borderline high 150 - 199 mg/dL High 200 - 499 mg/dL Very High > or = 500 mg/dL WBC (Bld) [#/Vol] 7.5 10*3/uL 4.4-11.0 [facility] Blood erythrocytes count (nu mber/volume)Ordered By: Marilee Jiang on 04-20-2023 RBC (Bld) [#/Vol] 4.58 10*6/uL 4.2-5.4 [facility] Blood hemoglobin measurement (mass/volume)Ordered By: Marilee Jiang on 04-20-2023 Hemoglobin (Bld) [Mass/Vol] 12.6 g/dL 12.0-15.0 [facility] Blood lymphocytes/100 leukoc ytesOrdered By: Marilee Jiang on 04-20-2023 Lymphocytes/100 WBC (Bld) 31.6 % 19-41 [facility] Blood monocytes/100 leukocyt esOrdered By: Marilee Jiang on 04-20-2023 Monocytes/100 WBC (Bld) 6.3 % 0-10 [facility] Blood platelet mean volumeOr dered By: Marilee Jiang on 04-20-2023 Platelet mean volume (Bld) [Entitic vol] 9.3 fL 6.2-12.0 [facility] Determination of erythrocyte mean corpuscular volume (MCV)Ordered By: Marilee Jiang on 04-20-2023 MCV (RBC) [Entitic vol] 89.1 fL 81-99 [facility] Hematocrit Auto (Bld) [Volum e fraction]Ordered By: Marilee Jiang on 04-20-2023 Hematocrit (Bld) [Volume fraction] 40.8 % 37-47 [facility] Laboratory - Chemistry and C hemistry - challengeOrdered By: Marilee Jiang on 04-20-2023 ALP [Catalytic activity/Vol] 58 U/L 45-117 [facility] ALT [Catalytic activity/Vol] 20 U/L 13-56 [facility] CO2 [Moles/Vol] 29.0 mmol/L 21.0-32.0 [facility] Globulin (S) [Mass/Vol] 4.5 g/dL 2.2-4.2 [facility] Urea nitrogen/Creatinine [Mass ratio] 25.4 mg/mg 10-20 [facility] - Hematology and Cell countsOrdered By: Marilee Jiang on 04-20-2023 Erythrocyte distribution width (RBC) [Entitic vol] 50.0 fL 35.1-43.9 [facility] Erythrocyte distribution width (RBC) [Ratio] 15.2 % 11.6-14.6 [facility] Immature granulocytes/100 WBC (Bld) 0.500 % 0.0-0.9 [facility] Comment on above: IG% - Immature Granu locytes (promyelocytes, myelocytes and metamyelocytes) > 1% indicates that a LEFT SHIFT is Present. MCH (RBC) [Entitic mass] 27.5 pg 27.0-32.0 [facility] Nucleated RBC/100 WBC (Bld) [Ratio] 0 % 0-5 [facility] MCHC Auto (RBC) [Mass/Vol]Or dered By: Marilee Jiang on 12-29-2023 MCHC (RBC) [Mass/Vol] 30.9 g/dL 32-36 [facility] No Panel InformationOrdered By: Marilee Jiang on 04-20-2023 Estimated GFR (MDRD) Amer 108 mL/min >60 [facility] Comment on above: GFR Calc Estimated GFR (MDRD) Non-Af Amer 90 mL/min >60 [facility] Comment on above: Non- GFR Calc Urine Microalbumin/Creatinine Ratio 37.3 mg/g CRE <30 [facility] Platelets bldOrdered By: Yanique Jiang on 04-20-2023 Platelets (Bld) [#/Vol] 329 10*3/uL 150-450 [facility] Serum or plasma albumin bhavani urement (mass/volume)Ordered By: Marilee Jiang on 04-20-2023 Albumin [Mass/Vol] 3.3 g/dL 3.2-5.0 [facility] Serum or plasma albumin/glob ulin mass ratioOrdered By: Marilee Jiang on 04-20-2023 Albumin/Globulin [Mass ratio] 0.7 {ratio} 0.9-2.4 [facility] Serum or plasma calcium bhavani urement (mass/volume)Ordered By: Marilee Jiang on 04-20-2023 Calcium [Mass/Vol] 8.9 mg/dL 8.5-10.1 [facility] Serum or plasma cholesterol in HDL measurement (mass/volume)Ordered By: Marilee Jiang on 04-20-2023 Cholesterol in HDL [Mass/Vol] 42 mg/dL >40 [facility] Comment on above: The drugs N-Acetylcy steine and Metamizole may falsely depress this assay. Reference Range HDL <40 mg/dL Low HDL Cholesterol HDL >or= 60 mg/dL High HDL Cholesterol Serum or plasma cholesterol in VLDL measurement (mass/volume)Ordered By: Marilee Jiang on 04-20-2023 Cholesterol in VLDL [Mass/Vol] 16 mg/dL 5-40 [facility] Serum or plasma creatinine m easurement (mass/volume)Ordered By: Marilee Jiang on 04-20-2023 Creatinine [Mass/Vol] 0.67 mg/dL 0.55-1.02 [facility] Comment on above: The validity of the calculated GFR & GFRAA in patients over 70 years has not been determined. Clinical correlation is essential. Serum or plasma low density lipoprotein (LDL) cholesterol measurement (mass/volume)Ordered By: Marilee Jiang on 04-20-2023 Cholesterol in LDL [Mass/Vol] 61 mg/dL 0-130 [facility] Serum or plasma urea nitroge n measurement (mass/volume)Ordered By: Marilee Jiang on 04-20-2023 Urea nitrogen [Mass/Vol] 17 mg/dL 7-18 [facility] Thin prep Papanicolaou smear with manual screeningOrdered By: Marilee Jiang on 04-20-2023 Thin prep Papanicolaou smear with manual screening 13 U/L 15-37 [facility] Thin prep Papanicolaou smear with manual screening 4 5-15 [facility] Thin prep Papanicolaou smear with manual screening 18.9 mg/L NO RANGE EST. [facility] Urine creatinine measurement (mass/volume)Ordered By: Marilee Jiang on 04-20-2023 Creatinine (U) [Mass/Vol] 50.70 mg/dL NO RANGE EST. [facility] Culture, urineOrdered By: Vashti Jiang on 01-18-2023 Bacteria identified Cx Nom (U) Pseudomonas aeruginosa [facility] Absolute lymphocyte countOrd ered By: Alcon Ramirez on 11-01-2022 Lymphocytes Auto (Unsp spec) [#/Vol] 3.45 10*3/uL 0.83-4.51 [facility] Basophil percentageOrdered B y: Alcon Ramirez on 11-01-2022 Basophils/100 WBC (Bld) 0.5 % 0-1 [facility] Eosinophils/100 WBC (Bld) 1.1 % 0-5 [facility] Neutrophils (Bld) [#/Vol] 6.8 10*3/uL 2.0-7.7 [facility] Neutrophils/100 WBC (Bld) 61.1 % 47-70 [facility] WBC (Bld) [#/Vol] 11.2 10*3/uL 4.4-11.0 [facility] Blood erythrocytes count (nu mber/volume)Ordered By: Alcon Ramirez on 11-01-2022 RBC (Bld) [#/Vol] 4.36 10*6/uL 4.2-5.4 [facility] Blood hemoglobin measurement (mass/volume)Ordered By: Alcon Ramirez on 11-01-2022 Hemoglobin (Bld) [Mass/Vol] 12.4 g/dL 12.0-15.0 [facility] Blood lymphocytes/100 leukoc ytesOrdered By: Alcon Ramirez on 11-01-2022 Lymphocytes/100 WBC (Bld) 30.9 % 19-41 [facility] Blood monocytes/100 leukocyt esOrdered By: Alcon Ramirez on 11-01-2022 Monocytes/100 WBC (Bld) 5.9 % 0-10 [facility] Blood platelet mean volumeOr dered By: Alcon Ramirez on 11-01-2022 Platelet mean volume (Bld) [Entitic vol] 9.3 fL 6.2-12.0 [facility] Determination of erythrocyte mean corpuscular volume (MCV)Ordered By: Alcon Ramirez on 11-01-2022 MCV (RBC) [Entitic vol] 90.4 fL 81-99 [facility] Erythrocyte sedimentation ra teOrdered By: Alcon Ramirez on 11-01-2022 ESR (Bld) [Velocity] 23 mm/h 0-30 [facility] Hematocrit Auto (Bld) [Volum e fraction]Ordered By: Alcon Ramirez on 11-01-2022 Hematocrit (Bld) [Volume fraction] 39.4 % 37-47 [facility] - Hematology and Cell countsOrdered By: Alcon Ramirez on 11-01-2022 Erythrocyte distribution width (RBC) [Entitic vol] 50.5 fL 35.1-43.9 [facility] Erythrocyte distribution width (RBC) [Ratio] 15.1 % 11.6-14.6 [facility] Immature granulocytes/100 WBC (Bld) 0.500 % 0.0-0.9 [facility] Comment on above: IG% - Immature Granu locytes (promyelocytes, myelocytes and metamyelocytes) > 1% indicates that a LEFT SHIFT is Present. MCH (RBC) [Entitic mass] 28.4 pg 27.0-32.0 [facility] Nucleated RBC/100 WBC (Bld) [Ratio] 0 % 0-5 [facility] MCHC Auto (RBC) [Mass/Vol]Or dered By: Alcon Ramirez on 11-01-2022 MCHC (RBC) [Mass/Vol] 31.5 g/dL 32-36 [facility] Platelets bldOrdered By: Joey huyen Ramirez on 11-01-2022 Platelets (Bld) [#/Vol] 324 10*3/uL 150-450 [facility] Serum or plasma C reactive p rotein measurement (mass/volume)Ordered By: Alcon Ramirez on 11-01-2022 CRP [Mass/Vol] 13.90 mg/L 0.0-3.0 [facility] Comment on above: C-Reactive Protein ( CRP) provides useful information for thediagnosis, therapy and monitoring of inflammatory processesand associated diseases. For the evaluation of Relative Riskfor Cardiovascular Disease, a High Sensitivity CRP (HSCRP)should be ordered. Basophil percentageOrdered B y: Marilee Jiang on 09-25-2022 Bilirubin [Mass/Vol] 0.30 mg/dL 0.20-1.00 [facility] Comment on above: For patients on eltr ombopag therapy, use of Dimension [place] TBIL is not recommended. Chloride [Moles/Vol] 106 mmol/L 98-107 [facility] Glucose [Mass/Vol] 86 mg/dL 74-106 [facility] Potassium [Moles/Vol] 4.3 mmol/L 3.5-5.1 [facility] Protein [Mass/Vol] 9.1 g/dL 6.4-8.2 [facility] Sodium [Moles/Vol] 138 mmol/L 136-145 [facility] Laboratory - Chemistry and C hemistry - challengeOrdered By: Marilee Jiang on 09-25-2022 ALP [Catalytic activity/Vol] 68 U/L 45-117 [facility] ALT [Catalytic activity/Vol] 24 U/L 13-56 [facility] CO2 [Moles/Vol] 31.0 mmol/L 21.0-32.0 [facility] Globulin (S) [Mass/Vol] 5.6 g/dL 2.2-4.2 [facility] Urea nitrogen/Creatinine [Mass ratio] 13.9 mg/mg 10-20 [facility] No Panel InformationOrdered By: Marilee Jiang on 09-25-2022 Estimated GFR (MDRD) Amer 63 mL/min >60 [facility] Comment on above: GFR Calc Estimated GFR (MDRD) Non-Af Amer 52 mL/min >60 [facility] Comment on above: Non- GFR Calc Serum or plasma albumin bhavani urement (mass/volume)Ordered By: Marilee Jiang on 09-25-2022 Albumin [Mass/Vol] 3.5 g/dL 3.2-5.0 [facility] Serum or plasma albumin/glob ulin mass ratioOrdered By: Marilee Jiang on 09-25-2022 Albumin/Globulin [Mass ratio] 0.6 {ratio} 0.9-2.4 [facility] Serum or plasma calcium bhavani urement (mass/volume)Ordered By: Marilee Jiang on 09-25-2022 Calcium [Mass/Vol] 9.1 mg/dL 8.5-10.1 [facility] Serum or plasma creatinine m easurement (mass/volume)Ordered By: Marilee Jiang on 09-25-2022 Creatinine [Mass/Vol] 1.08 mg/dL 0.55-1.02 [facility] Comment on above: The validity of the calculated GFR & GFRAA in patients over 70 years has not been determined. Clinical correlation is essential. Serum or plasma urea nitroge n measurement (mass/volume)Ordered By: Marilee Jiang on 09-25-2022 Urea nitrogen [Mass/Vol] 15 mg/dL 7-18 [facility] Thin prep Papanicolaou smear with manual screeningOrdered By: Marilee Jiang on 09-25-2022 Thin prep Papanicolaou smear with manual screening 24 U/L 15-37 [facility] Thin prep Papanicolaou smear with manual screening 1 5-15 [facility] Absolute lymphocyte countOrd ered By: Dr. Jiang on 04-20-2022 Lymphocytes Auto (Unsp spec) [#/Vol] 2.08 10*3/uL 0.83-4.51 [facility] Basophil percentageOrdered B y: Dr. Jiang on 04-20-2022 Basophils/100 WBC (Bld) 0.3 % 0-1 [facility] Bilirubin [Mass/Vol] 0.50 mg/dL 0.20-1.00 [facility] Comment on above: For patients on eltr ombopag therapy, use of Dimension [place] TBIL is not recommended. Chloride [Moles/Vol] 99 mmol/L 98-107 [facility] Eosinophils/100 WBC (Bld) 0.1 % 0-5 [facility] Glucose [Mass/Vol] 248 mg/dL 74-106 [facility] Comment on above: Glucose result great er than or equal to 200 mg/dLsuggests DIABETES MELLITUS per A.D.A. criteria. Neutrophils (Bld) [#/Vol] 11.8 10*3/uL 2.0-7.7 [facility] Neutrophils/100 WBC (Bld) 79.6 % 47-70 [facility] Potassium [Moles/Vol] 4.3 mmol/L 3.5-5.1 [facility] Protein [Mass/Vol] 8.6 g/dL 6.4-8.2 [facility] Sodium [Moles/Vol] 134 mmol/L 136-145 [facility] WBC (Bld) [#/Vol] 14.8 10*3/uL 4.4-11.0 [facility] Blood erythrocytes count (nu mber/volume)Ordered By: Dr. Jiang on 04-20-2022 RBC (Bld) [#/Vol] 5.04 10*6/uL 4.2-5.4 [facility] Blood hemoglobin measurement (mass/volume)Ordered By: Dr. Jiang on 04-20-2022 Hemoglobin (Bld) [Mass/Vol] 14.7 g/dL 12.0-15.0 [facility] Blood lymphocytes/100 leukoc ytesOrdered By: Dr. Jiang on 04-20-2022 Lymphocytes/100 WBC (Bld) 14.1 % 19-41 [facility] Blood monocytes/100 leukocyt esOrdered By: Dr. Jiang on 04-20-2022 Monocytes/100 WBC (Bld) 5.3 % 0-10 [facility] Blood platelet mean volumeOr dered By: Dr. Jiang on 04-20-2022 Platelet mean volume (Bld) [Entitic vol] 9.1 fL 6.2-12.0 [facility] Determination of erythrocyte mean corpuscular volume (MCV)Ordered By: Dr. Jiang on 04-20-2022 MCV (RBC) [Entitic vol] 86.5 fL 81-99 [facility] Hematocrit Auto (Bld) [Volum e fraction]Ordered By: Dr. Jiang on 04-20-2022 Hematocrit (Bld) [Volume fraction] 43.6 % 37-47 [facility] - Chemistry and C hemistry - challengeOrdered By: Dr. Jiang on 04-20-2022 ALP [Catalytic activity/Vol] 57 U/L 45-117 [facility] ALT [Catalytic activity/Vol] 27 U/L 13-56 [facility] CO2 [Moles/Vol] 32.0 mmol/L 21.0-32.0 [facility] Globulin (S) [Mass/Vol] 5.2 g/dL 2.2-4.2 [facility] Lipase [Catalytic activity/Vol] 89 U/L 73-393 [facility] Urea nitrogen/Creatinine [Mass ratio] 20.7 mg/mg 10-20 [facility] - Hematology and Cell countsOrdered By: Dr. Jiang on 04-20-2022 Erythrocyte distribution width (RBC) [Entitic vol] 46.4 fL 35.1-43.9 [facility] Erythrocyte distribution width (RBC) [Ratio] 14.6 % 11.6-14.6 [facility] Immature granulocytes/100 WBC (Bld) 0.600 % 0.0-0.9 [facility] Comment on above: IG% - Immature Granu locytes (promyelocytes, myelocytes and metamyelocytes) > 1% indicates that a LEFT SHIFT is Present. MCH (RBC) [Entitic mass] 29.2 pg 27.0-32.0 [facility] Nucleated RBC/100 WBC (Bld) [Ratio] 0 % 0-5 [facility] MCHC Auto (RBC) [Mass/Vol]Or dered By: Dr. Jiang on 04-20-2022 MCHC (RBC) [Mass/Vol] 33.7 g/dL 32-36 [facility] No Panel InformationOrdered By: Dr. Jiang on 04-20-2022 Estimated GFR (MDRD) Amer 92 mL/min >60 [facility] Comment on above: GFR Calc Estimated GFR (MDRD) Non-Af Amer 76 mL/min >60 [facility] Comment on above: Non- GFR Calc Platelets bldOrdered By: Dr. Jiang on 04-20-2022 Platelets (Bld) [#/Vol] 408 10*3/uL 150-450 [facility] Serum or plasma albumin bhavani urement (mass/volume)Ordered By: Dr. Jiang on 04-20-2022 Albumin [Mass/Vol] 3.4 g/dL 3.2-5.0 [facility] Serum or plasma albumin/glob ulin mass ratioOrdered By: Dr. Jiang on 04-20-2022 Albumin/Globulin [Mass ratio] 0.7 {ratio} 0.9-2.4 [facility] Serum or plasma calcium bhavani urement (mass/volume)Ordered By: Dr. Jiang on 04-20-2022 Calcium [Mass/Vol] 9.7 mg/dL 8.5-10.1 [facility] Serum or plasma creatinine m easurement (mass/volume)Ordered By: Dr. Jiang on 04-20-2022 Creatinine [Mass/Vol] 0.77 mg/dL 0.55-1.02 [facility] Comment on above: The validity of the calculated GFR & GFRAA in patients over 70 years has not been determined. Clinical correlation is essential. Serum or plasma urea nitroge n measurement (mass/volume)Ordered By: Dr. Jiang on 04-20-2022 Urea nitrogen [Mass/Vol] 16 mg/dL 7-18 [facility] Thin prep Papanicolaou smear with manual screeningOrdered By: Dr. Jiang on 04-20-2022 Thin prep Papanicolaou smear with manual screening 17 U/L 15-37 [facility] Thin prep Papanicolaou smear with manual screening 3 5-15 [facility] Basophil percentageOrdered B y: Dr. Bhatt on 03-22-2022 Chloride [Moles/Vol] 104 mmol/L 98-107 [facility] Glucose [Mass/Vol] 59 mg/dL 74-106 [facility] Potassium [Moles/Vol] 3.3 mmol/L 3.5-5.1 [facility] Sodium [Moles/Vol] 139 mmol/L 136-145 [facility] Glucose Glucometer (BldC) [M ass/Vol]Ordered By: Dr. Bhatt on 03-22-2022 Glucose [Mass/Vol] 107 mg/dL 74-106 [facility] Comment on above: MANAGEMENT OF PATIEN T CARE PER NURSING PROTOCOL Laboratory - Chemistry and C hemistry - challengeOrdered By: Dr. Bhatt on 03-22-2022 CO2 [Moles/Vol] 31.0 mmol/L 21.0-32.0 [facility] Urea nitrogen/Creatinine [Mass ratio] 28.2 mg/mg 10-20 [facility] No Panel InformationOrdered By: Dr. Bhatt on 03-22-2022 Estimated Creatinine Clearance Calc 35.49 ml/min [facility] Estimated GFR (MDRD) Amer 108 mL/min >60 [facility] Comment on above: GFR Calc Estimated GFR (MDRD) Non-Af Amer 89 mL/min >60 [facility] Comment on above: Non- GFR Calc Serum or plasma calcium bhavani urement (mass/volume)Ordered By: Dr. Bhatt on 03-22-2022 Calcium [Mass/Vol] 9.5 mg/dL 8.5-10.1 [facility] Serum or plasma creatinine m easurement (mass/volume)Ordered By: Dr. Bhatt on 03-22-2022 Creatinine [Mass/Vol] 0.67 mg/dL 0.55-1.02 [facility] Comment on above: The validity of the calculated GFR & GFRAA in patients over 70 years has not been determined. Clinical correlation is essential. Serum or plasma urea nitroge n measurement (mass/volume)Ordered By: Dr. Bhatt on 03-22-2022 Urea nitrogen [Mass/Vol] 19 mg/dL 7-18 [facility] Thin prep Papanicolaou smear with manual screeningOrdered By: Dr. Bhatt on 03-22-2022 Thin prep Papanicolaou smear with manual screening 4 5-15 [facility] CNOVon 11-02-2020 CNOV Office Visit ([facility]ASSMD ) -- LAZARA SHANE ([id number]) 1940 F Date Time Provider Department 11/02/20 3:15 PM SOCORRO HYATT During your visit today, we recorded the following information about you: Pulse Blood pressure 80/minute 140/78 Socorro Hyatt DO 11/02/2020 4:20 PM Signed This office note has been dictated. Socorro Hyatt DO Referring Provider: SELF [[id number]] Allergies As of Date: 11/02/2020 Noted Allergy Reaction ADHESIVE TAPE (ROSINS) 03/25/2008 ASPIRIN 03/25/2008 IODINE 09/22/2009 9 - Itching LATEX 03/25/2008 PENICILLINS 03/25/2008 PERCOCET (OXYCODONE-ACETAMINOPHEN)0 11/24/2009 9 - Itching Date Reviewed: 11/02/2020 Reviewed by: Mona Lewis MA - Fully Assessed Reason for Visit: Established Patient Follow-Up [[id number]] Cmt: Results Primary Visit Diagnosis:Symptomatic varicose veins of both lower extremities [I83.893] Order(s):COMPRESSION STOCKINGS [[id number]] Order #: [id number] Prescriptions as of 11/02/2020 - glimepiride (AMARYL) 4 mg tablet Take 4 mg by mouth twice daily with meals. - metFORMIN (GLUCOPHAGE) 500 mg tablet Take 500 mg by mouth daily with breakfast. - insulin NPH hum/reg insulin hm (NOVOLIN 70/30 SUBCUTANEOUS) Inject subcutaneously. - hydrocodone bit/acetaminophen(VICODIN 5 MG-500 MG TAB) Take 1-2 tablet's) every four (4) to six(6) hours as needed for pain. - famotidine(PEPCID 20 MG TAB) Take one(1) tablet daily. - oxybutynin chloride(DITROPAN XL 10 MG 24 HR TAB) Takes one tab daily. - brimonidine tartrate(ALPHAGAN P 0.1 % EYE DROPS) two drops in left eye daily. - pravastatin sodium(PRAVACHOL 10 MG TAB) Takes one tab daily. - pioglitazone hcl(ACTOS 15 MG TAB) Take one(1) tablet daily. - cholecalciferol(VITAMIN D-3 1,000 UNIT CHEWABLE TAB) Takes two tabs daily. - omega-3 fatty acids/vitamin e(FISH OIL 1,000 MG CAP) Takes two tabs daily. - insulin glargine,hum.rec.anlog(MORENITA TUS 100 UNIT/ML SUB-Q) takes 20 units at bedtime. - fluticasone/salmeterol(ADV AIR DISKUS 100 MCG-50 MCG/DOSE FOR INHALATION) Take one(1) inhalation twice daily; rinse and gargle mouth with water after each use. - pioglitazone hcl(ACTOS 45 MG TAB) one tablet daily - valsartan(DIOVAN 80 MG TAB) one tablet daily - multivitamins(DAILY VITAMIN TAB) Take one(1) tablet daily. Problem List As Of Date 11/02/2020 Noted Resolved Non-Healing Surgical Wound [T81.89XA] 12/14/2009 Encounter Status:Closed [facility] ([facility]) -- LAZARA SHANE ([id number]) 1940 F Date Time Provider Department 08/03/20 SOCORRO HYATT [facility] During your visit today, we recorded the following information about you: Monica He 08/03/2020 5:15 PM Signed Patient calling for results of Please review and advise Monica He 08/04/2020 8:58 AM Signed Spoke with Dr Hyatt regarding message below Patient called and will schedule f/u appt to discuss results and POC Patient verbalizes understanding Encounter closed Allergies As of Date: 08/03/2020 Noted Allergy Reaction ADHESIVE TAPE (ROSINS) 03/25/2008 ASPIRIN 03/25/2008 IODINE 09/22/2009 9 - Itching LATEX 03/25/2008 PENICILLINS 03/25/2008 PERCOCET (OXYCODONE-ACETAMINOPHEN)0 11/24/2009 9 - Itching Date Reviewed: 07/20/2020 Reviewed by: Mona Lewis MA - Fully Assessed Reason for Visit: Results [95] Prescriptions as of 08/03/2020 Sig: GLIMEPIRIDE 4 MG TABLET Take 4 mg by mouth twice daniel* METFORMIN 500 MG TABLET Take 500 mg by mouth daily wi* NOVOLIN 70/30 SUBCUTANEOUS Inject subcutaneously. * VICODIN 5 MG-500 MG TABLET Take 1-2 tablet's) every four* * PEPCID 20 MG TABLET Take one(1) tablet daily. * DITROPAN XL 10 MG TABLET,EXTE* Takes one tab daily. * ALPHAGAN P 0.1 % EYE DROPS two drops in left eye daily. * PRAVACHOL 10 MG TABLET Takes one tab daily. * ACTOS 15 MG TABLET Take one(1) tablet daily. * VITAMIN D3 25 MCG (1,000 UNIT* Takes two tabs daily. * FISH OIL 1,000 MG CAPSULE Takes two tabs daily. * LANTUS U-100 INSULIN 100 UNIT* takes 20 units at bedtime. * ADVAIR DISKUS 100 MCG-50 MCG/* Take one(1) inhalation twice * * ACTOS 45 MG TABLET one tablet daily * DIOVAN 80 MG TABLET one tablet daily * DAILY VITAMIN TABLET Take one(1) tablet daily. Problem List As Of Date 08/03/2020 Noted Resolved Non-Healing Surgical Wound [T81.89XA] 12/14/2009 Encounter Status:Closed by MONICA HE on 08/04/20 [facility] CNOVon 07-20-2020 CNOV Office Visit (VASSWS ) -- LAZARA SHANE ([id number]) 1940 F Date Time Provider Department 07/20/20 8:00 AM SOCORRO HYATT During your visit today, we recorded the following information about you: Pulse Blood pressure 74/minute 165/70 Socorro Hyatt DO 08/09/2020 10:34 AM Signed VASCULAR SURGERY INITIAL CONSULT SERVICE DATE: 07/20/2020 [...] them. Was evaluated in the past in [place] for her varicose veins however did not have treatment Pain Assessment: PAIN EVALUATION 07/20/2020 0815 Pain Level: 7 Pain Location: ? Both legs Frequency: Continuous @OBHISTORIG( error)@ Duration of Symptoms: Progressive PREVIOUS TESTS: None CARDIOVASCULAR RISK FACTORS: None PAST MEDICAL/SURGICAL/FAMILY/SO CIAL HISTORY PAST MEDICAL HISTORY Diagnosis Date - Incisional hernia - Other specified disorder of gallbladder - Type II or unspecified type diabetes mellitus without mention of complication, uncontrolled - Unspecified essential hypertension - Unspecified inflammatory polyarthropathy PAST SURGICAL HISTORY Procedure Laterality Date - KNEE SCOPE,DIAGNOSTIC 1988 Arthroscopy, knee, right - LAP CHOLECYSTECT/CHOLANGIOGRAP HY 04/08/08 - PAST SURGICAL HISTORY OF hernia [...] two tabs daily. 0 0 - insulin glargine,hum.rec.anlog(MORENITA TUS 100 UNIT/ML SUB-Q) takes 20 units at [...] Take one(1) tablet daily. 0 0 - fluticasone/salmeterol(ADV AIR DISKUS 100 MCG-50 MCG/DOSE FOR INHALATION) Take [...] for cough, wheezing, or shortness of breath Cardiovasc (more content not included)... Normal [facility] Vital Signs Date Time Vital Sign Value Performing Clinician Joann sorensen 09-14-2024 15:59-0400 Body temperature 98 [degF] Dr. Marilee Jiang DO Work Phone: [facility] 09-14-2024 15:59-0400 Diastolic blood pressure 99 mm[Hg] Dr. Marilee Jiang DO Work Phone: [facility] 09-14-2024 15:59-0400 Heart rate 79 /min Dr. Marilee Jiang DO Work Phone: [facility] 09-14-2024 15:59-0400 Respiratory rate 14 /min Dr. Marilee Jiang DO Work Phone: [facility] 09-14-2024 15:59-0400 SaO2% (BldA) [Mass fraction] 98 % Dr. Marilee Jiang DO Work Phone: [facility] 09-14-2024 15:59-0400 Systolic blood pressure 165 mm[Hg] Dr. Marilee Jiang DO Work Phone: [facility] 09-14-2024 13:11-0400 Body height 157.[address] Marilee Jiang DO Work Phone: [facility] 08-03-2023 23:47-0400 Body temperature 96.5 [degF] [facility] 08-03-2023 23:47-0400 Diastolic blood pressure 75 mm[Hg] [facility] 08-03-2023 23:47-0400 Heart rate 73 /min [facility] 08-03-2023 23:47-0400 Respiratory rate 16 /min [facility] 08-03-2023 23:47-0400 SaO2% (BldA) [Mass fraction] 98 % [facility] 08-03-2023 23:47-0400 Systolic blood pressure 174 mm[Hg] [facility] 08-03-2023 21:41-0400 Body height 160.02 cm [facility] 08-03-2023 21:41-0400 Body mass index (BMI) [Ratio] 42.7 kg/m2 [facility] 08-03-2023 21:41-0400 Body weight 109.6 kg [facility] 06-02-2023 01:29-0500 Diastolic blood pressure 68 mm[Hg] Dr. Marilee Jiang Work Phone: [facility] 06-02-2023 01:29-0500 Heart rate 72 /min Dr. Marilee Jiang Work Phone: [facility] 06-02-2023 01:29-0500 Respiratory rate 18 /min Dr. Marilee Jiang Work Phone: [facility] 06-02-2023 01:29-0500 SaO2% (BldA) [Mass fraction] 97 % Dr. Marilee Jiang Work Phone: [facility] 06-02-2023 01:29-0500 Systolic blood pressure 140 mm[Hg] Dr. Marilee Jiang Work Phone: [facility] 06-01-2023 22:24-0500 Body height 158.[address] Marilee Jiang Work Phone: [facility] 06-01-2023 22:24-0500 Body mass index (BMI) [Ratio] 43.5 kg/m2 Dr. Marilee Jiang Work Phone: [facility] 06-01-2023 22:24-0500 Body temperature 97.4 [degF] Dr. Marilee Jiang Work Phone: [facility] 06-01-2023 22:24-0500 Body weight 109.[address] Marilee Jiang Work Phone: [facility] 01-01-2023 13:15-0400 Body height 154.[address] Marilee Jiang Work Phone: [facility] 01-01-2023 13:15-0400 Body weight 106.[address] Marilee Jiang Work Phone: [facility] 12-22-2022 00:09-0400 Body weight 109.76 kg [facility] 11-29-2022 14:00-0400 Body height 154.94 cm [facility] 11-29-2022 14:00-0400 Body weight 109.76 kg [facility] 10-31-2022 10:30-0400 Body height 154.[address] Marilee Jiang Work Phone: [facility] 10-31-2022 10:30-0400 Body weight 110.[address] Marilee Jiang Work Phone: [facility] 08-28-2022 15:22-0400 Body mass index (BMI) [Ratio] 45.1 kg/m2 Dr. Marilee Jiang Work Phone: [facility] 08-28-2022 15:22-0400 Body weight 112.[address] Marilee Jiang Work Phone: [facility] 08-28-2022 15:22-0400 Diastolic blood pressure 74 mm[Hg] Dr. Marilee Jiang Work Phone: [facility] 08-28-2022 15:22-0400 Heart rate 76 /min Dr. Marilee Jiang Work Phone: [facility] 08-28-2022 15:22-0400 SaO2% (BldA) [Mass fraction] 97 % Dr. Marilee Jiang Work Phone: [facility] 08-28-2022 15:22-0400 Systolic blood pressure 162 mm[Hg] Dr. Marilee Jiang Work Phone: [facility] 03-22-2022 10:47-0500 Diastolic blood pressure 54 mm[Hg] Dr. Marilee Jiang Work Phone: [facility] 03-22-2022 10:47-0500 Heart rate 87 /min Dr. Marilee Jiang Work Phone: [facility] 03-22-2022 10:47-0500 Respiratory rate 22 /min Dr. Marilee Jiang Work Phone: [facility] 03-22-2022 10:47-0500 SaO2% (BldA) [Mass fraction] 100 % Dr. Marilee Jiang Work Phone: [facility] 03-22-2022 10:47-0500 Systolic blood pressure 143 mm[Hg] Dr. Marilee Jiang Work Phone: [facility] 03-22-2022 08:16-0500 Body height 157.[address] Marilee Jiang Work Phone: [facility] 03-22-2022 08:16-0500 Body mass index (BMI) [Ratio] 42 kg/m2 Dr. Marilee Jiang Work Phone: [facility] 03-22-2022 08:16-0500 Body temperature 96.4 [degF] Dr. Marilee Jiang Work Phone: [facility] 03-22-2022 08:16-0500 Body weight 104.[address] Marilee Jiang Work Phone: [facility] 02-27-2022 15:29-0500 Body height 157.[address] Marilee Jiang Work Phone: [facility] Work Phone: 02-27-2022 15:29-0500 Body mass index (BMI) [Ratio] 43.3 kg/m2 Dr. Marilee Jiang Work Phone: [facility] 02-27-2022 15:29-0500 Body weight 107.[address] Marilee Jiang Work Phone: [facility] 02-27-2022 15:29-0500 Diastolic blood pressure 70 mm[Hg] Dr. Marilee Jiang Work Phone: [facility] 02-27-2022 15:29-0500 Heart rate 59 /min Dr. Marilee Jiang Work Phone: [facility] 02-27-2022 15:29-0500 SaO2% (BldA) [Mass fraction] 96 % Dr. Marilee Jiang Work Phone: [facility] 02-27-2022 15:29-0500 Systolic blood pressure 161 mm[Hg] Dr. Marilee Jiang Work Phone: [facility] Encounters Encounter Date Encounter Type Care Provider Facility Start: 10-16-2024 End: 10-16-[address] Marilee Jiang DO Work Phone: -Laboratory Specimen Start: 10-16-2024 End: 10-16-[address] Marilee Jiang DO -Laboratory Specimen Work Phone: Start: 10-16-2024 End: 10-16-2024 ambulatory Marilee Jiang Facility:[facility] Start: 09-14-2024 End: 09-14-2024 Emergency department patient visit Dr. Marilee Jiang DO Work Phone: -Emergency Department Work Phone: Start: 08-28-2024 End: 08-28-2024 Patient encounter procedure Darryl Lackey DO -[facility] Work Phone: Start: 08-28-2024 End: 08-28-2024 ambulatory Darryl Lackey Facility:[facility] Start: 07-16-2024 End: 07-16-[address] Marilee Jiang DO Work Phone: [facility] Work Phone: Start: 07-16-2024 End: 07-16-[address] Marilee Jiang DO -Laboratory, [facility] Start: 07-16-2024 End: 07-16-2024 ambulatory Marilee Jiang Facility:[facility] Start: 06-17-2024 End: 06-17-[address] Marilee Jiang DO Work Phone: [facility] Work Phone: Start: 06-17-2024 End: 06-17-[address] Gem Gamboa MD -Cat Scan, [facility] Work Phone: Start: 06-17-2024 End: 06-17-2024 ambulatory Gem Gamboa Facility:[facility] Start: 06-03-2024 End: 06-03-[address] Gem Gamboa MD -Laboratory, [place] Work Phone: Start: 06-03-2024 End: 06-03-2024 ambulatory Marilee Jiang Facility:[facility] Start: 05-13-2024 End: 05-13-[address] Marilee Jiang DO -Cat Scan, [facility] Work Phone: Start: 05-12-2024 End: 05-13-2024 [facility] Start: 05-12-2024 Non-patient / Non-visit Dr. Todd Lobo MD -[facility] Start: 05-12-2024 End: 05-12-[address] Marilee Jiang DO -Cardiovascular Services Work Phone: Start: 05-12-2024 End: 05-12-2024 ambulatory Marilee Jiang Facility:[facility] Start: 05-05-2024 End: 05-05-[address] Marilee Jiang DO -Laboratory, [place] Work Phone: Start: 05-05-2024 End: 05-05-2024 ambulatory Marilee Jiang Facility:[facility] Start: 04-24-2024 End: 04-24-[address] Marilee Jiang DO -Laboratory, [place] Work Phone: Start: 04-24-2024 End: 04-24-2024 ambulatory Marilee Jiang Facility:[facility] Start: 04-21-2024 End: 04-21-[address] Marilee Jiang DO -[facility] Work Phone: Start: 04-21-2024 End: 04-21-2024 ambulatory Marilee Jiang Facility:[facility] Start: 04-15-2024 End: 04-15-[address] Marilee Jiang DO -Outpatient Breast Imaging Work Phone: Start: 04-15-2024 End: 04-15-2024 [facility] Start: 01-31-2024 End: 01-31-2024 [facility]ulatory [facility] Start: 01-02-2024 End: 01-02-2024 Emergency department patient visit Marilee Jiang Facility:[facility] Start: 12-21-2023 End: 12-21-2023 ambulatory Marilee Jiang Facility:[facility] Start: 08-03-2023 End: 08-03-2023 Emergency department patient visit [facility]-Emergency Department Work Phone: Start: 06-18-2023 End: 06-18-[address] Marilee Jiang Work Phone: [facility] Work Phone: Start: 06-18-2023 End: 06-18-[address] Marilee Jiang Work Phone: [facility] Work Phone: Start: 06-01-2023 End: 06-02-2023 Emergency department patient visit Dr. Marilee Jiang Work Phone: [facility]-Emergency Department Work Phone: Start: 04-24-2023 End: 04-24-[address] Marilee Jiang Work Phone: [facility] Work Phone: Start: 04-24-2023 End: 04-24-[address] Marilee Jiang Work Phone: [facility]-Sleep Lab Work Phone: Start: 04-20-2023 End: 04-20-[address] Marilee Jiang Work Phone: [facility] Work Phone: Start: 04-20-2023 End: 04-20-[address] Marilee Jiang Work Phone: [facility]-Laboratory, [place] Work Phone: Start: 04-03-2023 End: 04-03-[address] Marilee Jiang Work Phone: [facility] Work Phone: Start: 04-03-2023 End: 04-03-[address] Marilee Jiang Work Phone: [facility]-Outpatient Breast Imaging Work Phone: Start: 03-30-2023 End: 03-30-2023 Admission to same day surgery center Dr. Marilee Jiang Work Phone: [facility]-Pre-Admission Testing Work Phone: Start: 03-30-2023 End: 03-30-[address] Marilee Jiang Work Phone: [facility] Work Phone: Start: 02-26-2023 End: 02-26-[address] Marilee Jiang Work Phone: [facility] Work Phone: Start: 01-18-2023 End: 01-18-[address] Marilee Jiang Work Phone: [facility]-Laboratory, Specimen Work Phone: Start: 01-01-2023 End: 01-20-[address] [facility] Start: 01-01-2023 [facility] Start: 11-29-2022 End: 12-21-2022 [facility] Start: 11-01-2022 End: 11-01-[address] Marilee Jiang Work Phone: [facility] Work Phone: Start: 11-01-2022 End: 11-01-[address] Marilee Jiang Work Phone: [facility] Work Phone: Start: 10-31-2022 End: 11-20-[address] Marilee Jiang Work Phone: [facility] Work Phone: Start: 10-31-2022 End: 11-20-[address] Marilee Jiang Work Phone: [facility]-Diabetic Clinic Work Phone: Start: 10-31-[address] [facility] Start: 10-30-2022 End: 10-30-2022 ambulatory [facility] Work Phone: Start: 10-30-2022 End: 10-30-2022 [facility] Start: 10-30-[address] Marilee Jiang Work Phone: [facility]-Physical Therapy Work Phone: Start: 09-25-2022 End: 09-25-[address] Marilee Jiang Work Phone: [facility] Start: 08-28-2022 End: 08-28-[address] Marilee Jiang Work Phone: [facility] Work Phone: Start: 07-24-2022 Non-patient / Non-visit Dr. Marilee Jiang Work Phone: [facility] Start: 07-24-[address] Marilee rosario [facility] Start: 04-25-2022 End: 04-25-[address] Marilee Jiang Work Phone: [facility] Work Phone: Start: 04-25-2022 End: 04-25-[address] Marilee Jiang Work Phone: [facility] Start: 04-20-2022 End: 04-20-[address] Marilee Jiang Work Phone: [facility] Work Phone: Start: 04-20-2022 End: 04-20-[address] Marilee Jiang Work Phone: [facility] Start: 03-30-2022 End: 03-30-[address] Marilee Jiang Work Phone: [facility] Work Phone: Start: 03-30-2022 End: 03-30-[address] Marilee Jiang Work Phone: [facility]-Outpatient Breast Imaging Start: 03-22-2022 End: 03-22-2022 Emergency department patient visit Dr. Marilee Jiang Work Phone: [facility]-Emergency Department Start: 02-27-2022 End: 02-27-[address] Marilee Jiang Work Phone: [facility] Work Phone: Start: 02-27-2022 End: 02-27-[address] Marilee Jiang Work Phone: [facility]-Physical Therapy Start: 02-27-2022 End: 02-27-[address] Marilee Jiang Work Phone: [facility] Procedures Date Procedure Procedure Detail Performing Clinician Start: 10-16-[address] Marilee Jiang DO Work Phone: Start: 09-14-2024 X-ray of lumbar spin e, two or three views Dr. Marilee Jiang DO Work Phone: Start: 07-16-2024 Lymphocyte percent differential count Dr. Marilee Jiang DO Work Phone: Start: 06-17-2024 CT of abdomen and pe lvis without contrast Dr. Marilee Jiang DO Work Phone: Start: 06-03-2024 Measurement of renal function Dr. Marilee Jiang DO Work Phone: Comment on above: GFR Calc Start: 05-13-2024 Computed tomography of abdomen and pelvis with contrast Dr. Marilee Jiang DO Work Phone: Start: 05-05-[address] Marilee Jiang DO Work Phone: Start: 04-15-2024 Screening mammography aRdha Jiang DO Work Phone: Start: 06-01-2023 CT cervical spine wi thout contrast Dr. Marilee Jiang Work Phone: Start: 06-01-2023 CT of chest without contrast Dr. Marilee Jiagn Work Phone: Start: 06-01-2023 CT of head without contrast Dr. Marilee Jiang Work Phone: Start: 06-01-2023 CT of lumbar spine Dr. Marilee Jiang Work Phone: Start: 06-01-2023 Plain x-ray of humerus Dr. Marilee Jiang Work Phone: Start: 04-03-2023 Screening mammography Radha Jiang Work Phone: Start: 01-18-[address] Marilee Jiang Work Phone: Start: 04-25-2022 Plain chest X-ray Dr. Eleuterio Jiang Work Phone: Start: 03-30-2022 Screening mammography Radha Jiang Work Phone: Plan of Treatment Date Care Activity Detail Author Start: 09-14-2024 [facility] Start: 08-03-2023 [facility] Start: 06-02-2023 [facility] Patient Education [facility] Work Phone: Patient referral [facility] Work Phone: Immunizations Immunization Date Immunization Notes Care Provider Fa cility 06-02-2023 tetanus toxoid, redu pedro pablo diphtheria toxoid, and acellular pertussis vaccine, adsorbed Dr. Marilee Jiang Work Phone: [facility] 01-08-[address] Marilee Jiang Work Phone: [facility] Payers Date Payer Category Payer Self-pay [id number] 2023 [facility] [id number] 2006 Medicare [id number] Private Health Insurance [id number] Self-pay SELF PAY BY [facility] REQUEST [id number] Unknown [id number] 62 Unknown [id number] 62 Unknown [id number] 62 Unknown [id number] 62 Unknown [id number] 62 Unknown [id number] [id number] 62 Unknown [id number] [id number] 62 Unknown [id number] [id number] 62 Unknown [id number] [id number] 62 Unknown [id number] [id number] 62 Unknown [id number] 62 Unknown [id number] 62 Unknown [id number] [id number] 62 Unknown [id number] [id number] 62 Unknown [id number] 62 Unknown [id number] 62 Social History Date Type Detail Facility Start: 02-27-2022 End: 02-26-2023 Tobacco smoking status AKIS Unknown if ever smoked [facility] Start: 10-05-2020 None [facility] Start: 10-05-2020 Non-smoker [facility] Start: 1940 Sex Assigned At Female W [facility] Start: 01-02-2024 End: 09-14-2024 Tobacco smoking status NHIS Ex-smoker (finding) [facility] Start: 07-02-2024 End: 07-21-2024 Sex Female (finding) [facility] Mental Status Date Assessment Result Facility 03-22-2022 Cognitive function Level Of Cons ciousness Awake;Alert;Appropriate;Follow s Commands [facility] Work Phone: Clinical Notes 07-20-2020 to 09-14-2024 Note Date & Type Note Facility 09-14-2024 Discharge summary [facility] 09-14-2024 Radiology Diagnostic study note [facility] Imaging Services [address] [place] [address] Lumbar Spine 2 or 3 Views MR#: [id number] Acct: [id number] Name: LAZARA SHANE Rep #: [id number] : 1940 F 84 From: Pet er Carmen PIÑA PCP: Dr. Marilee Jiang DO Status: REG ER Study:Lumbar Spine 2 or 3 Views Date of Exam: 09/14/24 Exam# [id number] Ordering Dr: Jay Patel DO PROCEDURE: LUMBAR SPINE 2 OR 3 VIEWS 09/14/2024 REASON FOR EXAM: INJURY/PAIN Initial encounter. TECHNIQUE: 2 view(s) of the lumbar spine COMPARISON: Abdomen/pelvis CT of June 12, 2024 FINDINGS: Vertebrae: No fractures Discs: Disc heights relatively maintained moderate endplate spondylosis. Alignment: Normal lumbar lordosis Other: No acute process identified. Dense splenic artery calcifications are present in the left upper quadrant RAD/Lumbar Spine 2 or 3 Views IMPRESSION: No acute process detected. Other findings as above Reading Location: [facility] CC: Dr. Jay Patel DO; Dr. Marilee Jiang DO ~ Correspondence Specialist: Signed [facility] 09-14-2024 Discharge summary Note Date/Time September 14, 2024 4:07pm [facility] Medical Records Department [address] [place] [address] Emergency Department Summary 09/14/24 MR#: [id number] Acct: [id number] Name: LAZARA SHANE Rep #:[id number] : 1940 84 From: Jay Amado PCP: Dr. Marilee Jiang DO Status:REG ER Location: ED HPI History of Present Illness Chief Complaint: Back Informant: patient Onset/Context/Timing Onset: Weeks (1) Context: Gradual Onset Timing: Continuous Quality: - (Cramping) Location: Lumbar Worsened by: improves with Movement Relieved by: Nothing Associated Symptoms Associated Symptoms: Abdominal Pain; Negative for Numbness, Tingling, Radiation to Right Leg, Radiation to Left Leg, Fever, Dysuria, Unable to Ambulate, Unable to Transfer, Urinary Retention, Urinary Incontinence, Constipation or Fecal Incontinence Narrative Narrative: Patient presents with low back pain that has been getting worse over the past week. Patient states it is gradually getting worse. Patient denies any trauma or injury. Patient states her pain is over her lower lumbar area. Patient describes it as cramping. Patient states it is worse with movement such as standing. Patient states nothing seems to help with it. Patient admits to somepain into her abdomen. Patient denies any nausea or vomiting. Patient denies any bowel or bladder changes. Patient denies any saddle anesthesia. [facility] Medical History Diarrhea Diabetes Gastroparesis Unsteady gait Shortness of breath Asthma Home Medications ?Medication ?Instructions ?Recorded ?Last Taken ?Type Cholecalciferol (Vitamin D3) 5,000 unit PO DAILY suppl ement 11/08/17 11/08/17 08:00 History [Vitamin D3] ascorbic acid (vitamin C) 500 mg 500 mg PO DAILY suppl ement 11/08/17 11/07/17 20:00 History capsule brimonidine 0.15 % eye drops 1 drp BID damaged eye 11/08/17 08:00 History calcium carbonate 600 mg PO QHS supplement 11/07/17 20:00 History cyanocobalamin (vitamin B-12) 500 1 tab PO DAILY@0800 supplement 11/08/17 11/08/17 08:00 History mcg tablet glimepiride 4 mg tablet 4 mg PO BID diabetes 8 11/08/17 08:00 History insulin glargine 100 unit/mL 18 unit subcut QHS diabet es 11/08/17 11/07/17 20:00 History subcutaneous solution (Lantus U-100 Insulin) losartan 50 mg tablet 75 mg PO DAILY blood pressur e 11/08/17 11/08/17 08:00 History multivitamin (Daily Multiple 1 ea PO DAILY supplement 11/08/17 11/08/17 08:00 History tablet) omega-3 fatty acids-fish oil 340 1 ea PO DAILY supplem ent 11/08/17 11/08/17 08:00 History mg-1,000 mg capsule (Fish Oil) omeprazole 20 mg capsule,delayed 20 mg PO DAILY 11/08/17 08:00 History release pravastatin 10 mg tablet 10 mg PO QHS cholesterol 11/07/17 20:00 History Saccharomyces boulardii 250 mg 250 mg PO DAILY 1 Unknown History capsule (Daily Probiotic (S. boulardii)) insulin regular human 100 unit/mL 4 unit subcut Unknown History injection solution pioglitazone 45 mg tablet (Actos) 45 mg PO DAILY 10/27 Unknown History cyclobenzaprine 5 mg tablet 5 mg PO BID PRN muscle spa sm #10 08/03/23 Unknown Rx tabs metformin 500 mg tablet 500 mg PO QDAY 08/28/24 Unkn own History tramadol 50 mg tablet 50 mg PO Q4H PRN PRN Pain 3 days 09/14/24 Unknown Rx #20 tabs Allergy/AdvReac Type Severity Reaction Status Date / [facility]ergy Mild rash Verified 09/14/24 13:11 oxycodone Allergy Mild Swelling Verified 09/14/24 13:11 aspirin Allergy Rash Verified 09/14/24 13:11 codeine Allergy Rash Verified 09/14/24 13:11 NSAIDS (Non-Steroidal Allergy Rash Verified 09/14/24 13:11 Anti-Inflamma Penicillins Allergy Rash Verified 09/14/24 13:11 solifenacin (From Vesicare) Allergy Unknown Verified 09/14/24 13:11 Sulfa (Sulfonamide Allergy Rash Verified 09/14/24 13:11 Antibiotics) Family History Sister Breast cancer Mother CVA (cerebral vascular accident) Hypertension Father Diabetes Heart disease Surgical History History of knee replacement History of hysterectomy History of colonoscopy History of left inguinal hernia repair History of left inguinal hernia repair History of left inguinal hernia repair Social History household members: family Smoking Status: Former smoker substance use type: does not use ROS ROS ED Constitutional Constitutional ED: Denies chills or fever(s) Eyes Eyes: Denies blurry vision or change in vision ENT ENT ED: Denies rhinorrhea or sore throat Cardiovascular Cardiovascular: Denies chest pain or palpitations Respiratory/Chest Respiratory/Chest: Reports cough; Denies dyspnea Gastrointestinal Gastrointestinal: Reports abdominal pain; Denies nausea or vomiting Genitourinary Genitourinary ED: Denies dysuria or hematuria Musculoskeletal Musculoskeletal: Reports back pain; Denies neck pain Integumentary Denies abscess or rash Neurologic Neurologic: Denies headache(s) or weakness Allergic/Immunologic Allergic/Immunologic ED: Denies mouth swelling or urticaria EXAM Physical Exam Const Vital Signs: 09/14/24 13:11 Temperature 98 F Temperature Source Temporal Pulse Rate 74 Respiratory Rate 14 Blood Pressure 207/65 H Blood Pressure Mean 112 Pulse Ox 100 Oxygen Delivery Method Room Air Positive well nourished and well developed General Appearance ED: well developed HEENT Reports moist mucous membranes Neck supple and no JVD GI soft to palpation, non-tender and non-distended Back/Spine Back/Spine Narrative: There is tenderness and spasm of the left lumbar paraspinal muscles. There is mild midline tenderness. There is no bony crepitance or step-off. Range of motion was limited in all motions of the lumbar spine secondary to pain. Strength is 5/5 bilaterally in the lower extremities. There are no sensory deficits noted. Deep tendon reflexes are 2/4 bilaterally in the lower extremities. Lumbar Spine / Lower Back: ROM limited and straight leg raise negative bilaterally Extremity normal to inspection General Extremety ED: Negative for edema or tenderness General Extremity: Negative for edema Neuro oriented x3 and no sensory deficits noted Sensorium / Orientation: alert Motor Exam: strength 5/5 throughout Deep Tendon Reflexes: Rt Patellar (L4): 2+, Lt Patellar (L4): 2+, Rt Ankle (S1):2+ and Lt Ankle (S1): 2+ Deep Tendon Reflexes Back: Rt Patellar (L4): 2+, Lt Patellar (L4): 2+, Rt Ankle (S1): 2+ and Lt Ankle (S1): 2+ Psych mental status grossly normal MDM MDM MDM Narrative Medical decision making narrative: Differential diagnosis includes compression fracture, spondylolisthesis, lumbosacral strain, and sciatica. X-rays of the lumbar spine will be obtained to assess for compression fracture and spondylolisthesis. Radiography X-Ray: LS SPine, Read by ED Physician, Read by Radiologist, No Fracture, DJD andSpurring Diagnostic Testing: Clinical Impression(s) from Imaging Studies Lumbar Spine X-Ray 09/14/24 14:05 IMPRESSION: No acute process detected. Other findings as above Reading Location[facility] X-rays of the lumbar spine were obtained. There are 2 views. On my independentinterpretation, there is no acute fracture. There is no spondylolisthesis noted. There are degenerative changes noted. There is calcification of the splenic artery. Radiologist also interpreted the x-rays and agrees. Treatment and Re-Evaluation Narrative: Patient was given a dose of tramadol here. Patient was feeling better on reevaluation. Patient was advised of her findings. Patient was instructed to use ice to her back. Patient was instructed to take tramadol as needed for pain. Patient was instructed to follow-up with her primary care physician in 5 to 7 days. Patient was instructed to return if worse in any way. Patient understood and was agreeable with the plan. All questions were answered. Discharge Plan Triage Chief Complaint: Back ED Provider: Jay Patel Dx/Rx/DC Orders Clinical Impression: Lumbosacral strain, Benign essential hypertension, Type 2 diabetes mellitus Instructions: ED Back Sprain/Strain Prescriptions: New tramadol 50 mg tablet 50 mg PO Q4H PRN PRN (Reason: Pain) 3 Days Qty: 20 0RF No Action Novolin R Regular U-100 Insuln 100 unit/mL solution 4 unit subcut Patient Comments: INJECT 4 UNITS SUBCUTANEOUSLY ONCE DAILY WITH THE LARGEST MEAL Saccharomyces boulardii [Daily Probiotic (S. boulardii)] 250 mg capsule 250 mg PO DAILY pioglitazone [Actos] 45 mg tablet 45 mg PO DAILY metformin 500 mg tablet 500 mg PO QDAY multivitamin [Daily Multiple] 1 EACH tablet 1 ea PO DAILY losartan 50 MG tablet 75 mg PO DAILY insulin glargine [Lantus U-100 Insulin] 100 UNIT/ML solution 18 unit subcut QHS Patient Comments: 25 with taking steroid calcium carbonate 600 MG tablet 600 mg PO QHS pravastatin 10 MG tablet 10 mg PO QHS cyanocobalamin (vitamin B-12) 500 MCG tablet 1 tab PO DAILY@0800 glimepiride 4 MG tablet 4 mg PO BID omeprazole 20 MG capsule,delayed release(DR/EC) 20 mg PO DAILY brimonidine 1 DROP bottle 1 drp Left Eye BID omega-3 fatty acids-fish oil [Fish Oil] 1 EACH capsule 1 ea PO DAILY ascorbic acid (vitamin C) 500 MG capsule 500 mg PO DAILY Cholecalciferol (Vitamin D3) [Vitamin D3] 5,000 UNIT capsule 5,000 unit PO DAILY cyclobenzaprine 5 mg tablet 5 mg PO BID PRN (Reason: muscle spasm) Qty: 10 0RF Primary Care Provider: Marilee Jiang Referrals: Marilee Jiang DO [Primary Care Provider] - 5-7 Days Print Language: Lao Disposition Disposition: Home, Self Care What to do if you have Problems For any increased pain, shortness of breath, bleeding, nausea or vomiting, chestpain, or any unexpected problems, contact your Primary Care Provider. Call [facility] ([phone]) or report to the closest Emergency Room. Call 911 if necessary. 09/14/24 1607 <Electronically signed by Jay Patel DO> Cosigner Signature (if applicable): CC: Dr. Marilee Jiang DO ~ Signed [facility] Work Phone: 1(453) 161-218505-08-2025 Evaluation note* Diagnosis Onset Date Resolution Status Admit Date Dysphagia noneactive August 28, 2024 3:16pm [facility] Work Phone: 1(309) 331-592602-26-2025 Radiology Diagnostic study note [facility] Imaging Services [address] [place] [address] Abdomen/Pelvis without Cont MR#: [id number] Acct: [id number] Name: LAZARA SHANE Rep #: [id number] : 1940 F 83 From: Jose Dodge MD PCP: Dr. Marilee Jiang, DO Status: REG CLI Study:Abdomen/Pelvis without Cont Date of Exa m: 06/17/24 Exam# [id number] Ordering Dr: Gem Gamboa MD PROCEDURE: ABDOMEN/PELVIS WITHOUT CONT REASON FOR EXAM: History of left ureteral calculus. TECHNIQUE: Abdomen and pelvis CT without intravenous contrast. No oral contrast. COMPARISON: Comparison is made with prior study dated May 13, 2024. FINDINGS: Noncontrast technique limits evaluation of the abdominal and pelvic viscera. Lung bases: Stable minimal increased markings at the lung bases suggestive of mild scarring and/or atelectasis. Coronary artery calcification. Liver: Unremarkable. Gallbladder: Surgically absent. Spleen: Small calcified splenic granulomas. Pancreas: Unremarkable. Adrenals: Unremarkable. Kidneys: There is a 4.5 mm nonobstructive calculus in the central calyx of the right kidney. A punctate calcification is seen in the lower pole calyx of the right kidney. The previously seen left ureteral calculus is not seen atthis time. Bladder: There is evidence of a cystocele. Reproductive Organs: Prior hysterectomy. Adnexal regions are unremarkable. Bowel: Unremarkable. Appendix: Prior appendectomy. Lymph nodes: No suspicious lymph node enlargement. Vasculature: Atherosclerotic calcification of the abdominal aorta and the major visceral branches. Peritoneum / Retroperitoneum: No ascites. No free air. Once again, there is evidence of increased markings within the omental fat in the root of the mesentery. This is nonspecific and may represent what wecall a ailyn omentum. Prior anterior ventral hernia repair with a mesh. Bones: Degenerative changes of the spine. Almost complete collapse of the L3 vertebrae. CT/Abdomen/Pelvis without Cont IMPRESSION: The previously seen left ureteral calculus is not seen. Nonobstructive right intrarenal calculi. Stable ailyn omentum with increased markings in the omental fat in the root of the mesentery. One or more dose reduction techniques were used (e.g., Automated exposure control, adjustment of the mA and/or kV according to patient size, use of iterative reconstruction technique). Reading Location: [id number] CC: Dr. Gem Gamboa MD; Dr. Marilee Jiang DO ~ Correspondence Specialist: Signed [facility]07-13-2021 NoteHNO ID: [id number] Author: Socorro Hyatt DO Service: ? Author Type: Physician Type: Progress Notes Filed: 11/02/2020 4:20 PM Note Text: This office note has been dictated. Socorro Hyatt [facility]07-13-2021 NoteHNO ID: [id number] Author: Socorro Hyatt DO Service: Vascular Surgery Author Type: Physician Type: Progress Notes Filed: 11/08/2020 9:50 AM Note Text: NAME: LAZARA SHANE [facility] NO: [id number] DATE OF SERVICE: 11/02/2020 Subjective: Mrs. Shane [...] She is agreeable with this plan. Socorro Hyatt D.O. KB/089 Audio #: [id number] Date Dictated: 11/02/2020 14:36:42 Date Typed: 11/06/2020 09:07:23 Date Revised:[facility]03-30-2021 NoteHNO ID: [id number] Author: Socorro Hyatt Service: ? Author Type: Physician Type: Progress [...] them. Was evaluated in the past in [place] for her varicose veins however did not [...] dysuria, frequency, or in (more content not included)...[facility] Diagnosis Onset Date Resolution Status Gastroparesis acute IBS (irritable bowel syndrome) acute Gastroesophageal reflux disease chronic [facility] Work Phone: Evaluation note* Diagnosis Onset Date Resolution Status Gastroesophageal reflux disease chronic IBS (irritable bowel syndrome) chronic [facility] Work Phone: Evaluation noteNo assessment information available [facility] Work Phone: Evaluation note* Diagnosis Onset Date Resolution Status Diabetes acute Diarrhea acute Gastroesophageal reflux disease chronic IBS (irritable bowel syndrome) chronic [facility] Work Phone: Hospital Discharge instructions Additional Instructions Recommend decreasing insulin from 20 units in the morning to 15 units.[facility] Work Phone: Reason for referral (narrative)No reason for referral information availableWThe [facility] Work Phone: Summary Purpose Family History No Family History Records Found Relationship Condition Age at Onset Recorded Date/T nay sister Malignant neoplasm of breast Unknown mother Cerebrovascular accident (CVA) Unknown Hypertension Unknown father Diabetes mellitus Unknown Cardiac disease Unknown Advance Directives No Advanced Directives Records Found Advance Directive Response Recorded Date/ Time Advance Directives No March 10:47am Living Will No November 08, 2017 9:57pm Power of Gm No November 08 201 8 9:57pm Advance Directive Response Recorded Date/ Time Advance Directives No March 10:47am Living Will No March 22 022 8:33am Power of Gm No March 22, 2022 8:33am Advance Directive Response Recorded Date/ Time Advance Directives No March 11:47am Living Will No March 22 9:33am Power of Gm No March 22, 2022 9:33am Advance Directive Response Recorded Date/ Time Advance Directives No March 10:47am Living Will No June 01 10:30pm Power of Gm No June 01, 2023 10:30pm Advance Directive Response Recorded Date/ Time Advance Directives No March 11:47am Living Will No August 03, 2023 11:47pm Power of Gm No August 02 11:47pm Advance Directive Response Recorded Date/ Time Advance Directives No March 11:47am Advance Directive Response Recorded Date/ Time Do you have a Healthcare Power of Gm? No September 14, 2024 1:46pm Advance Directives No March 11:47am Chief Complaint and Reason for Visit Chief Complaint Admit Date Dysphagia August 28, 2024 3:16pm BACK September 14, 2024 1:11p m Reason for Visit Admit Date Dysphagia August 28, 2024 3:16pm Chief Complaint 4 MO FU PELVIC FLOOR/PT HAS RX Reason for Visit Gastroparesis IBS (irritable bowel syndrome) Gastroesophageal reflux disease Chief Complaint 4 MO FU PELVIC FLOOR/PT HAS RX hypoglycemia Reason for Visit Gastroparesis IBS (irritable bowel syndrome) Gastroesophageal reflux disease Chief Complaint 4 MO FU PELVIC FLOOR/PT HAS RX hypoglycemia SCREENING Reason for Visit Gastroparesis IBS (irritable bowel syndrome) Gastroesophageal reflux disease Chief Complaint 4 MO FU PELVIC FLOOR/PT HAS RX hypoglycemia SCREENING Cough Reason for Visit Gastroparesis IBS (irritable bowel syndrome) Gastroesophageal reflux disease Chief Complaint SCREENING 6 MO FU LT KNEE. RX HERE TYPE 2 DM RT ARTIFICIAL KNEE JT Reason for Visit Gastroesophageal ref lux disease IBS (irritable bowel syndrome) Chief Complaint LT KNEE. RX HERE TYPE 2 DM RT ARTIFICIAL KNEE JT TYPE 2 DM TYPE 2 DM Chief Complaint TYPE 2 DM 6 MO FU LT TOTAL KNEE W KATHY SCREEN APNEA, SNORING Reason for Visit Diabetes Diarrhea Gastroesophageal reflux disease IBS (irritable bowel syndrome) Chief Complaint 6 MO FU LT TOTAL KNEE W KATHY SCREEN APNEA, SNORING fall S/O-PERFORM TEST IN 1 WEEK/ 4 WEEKS/ 12 WEEKS Reason for Visit Diabetes Diarrhea Gastroesophageal reflux disease IBS (irritable bowel syndrome) Chief Complaint APNEA, SNORING fall S/O-PERFORM TEST IN 1 WEEK/ 4 WEEKS/ 12 WEEKS Back Chief Complaint TYPE 2 DM 6 MO FU LT TOTAL KNEE W KATHY SCREEN Reason for Visit Diabetes Diarrhea Gastroesophageal reflux disease IBS (irritable bowel syndrome) Chief Complaint Admit Date SCREENING April 15, 2024 10:40am SHORTNESS OF BREATH AND EDEMA May 122024 12:27pm ABDOMINAL PAIN AND WEIGHT LOSS April 242024 12:21pm NOCTURNAL ENURESIS June 03, 2024 4:36pm LT URETERAL CALCULUS, ABD PAIN June 17, 2024 4:16pm Chief Complaint Admit Date NOCTURNAL ENURESIS June 03, 2024 4:36pm LT URETERAL CALCULUS, ABD PAIN June 17, 2024 4:16pm Dysphagia August 28, 2024 3:16pm BACK September 14, 2024 1:11p m Additional Source Comments INFORMATION SOURCE (unrecogn ized section and content) DATE CREATED AUTHOR 05/22/2021 [facility] DATE CREATED AUTHOR AUTHOR'S ORGANIZ ATION 10/23/2024 [facility] Goals (unrecognized section and content) Goals may be documented in a n alternate sectionGoals may be documented in an alternate sectionGoals may be documented in an alternate sectionGoals may be documented in an alternate sectionGoals may be documented in an alternate sectionGoals may be documented in an alternate sectionGoals may be documented in an alternate sectionGoals may be documented in an alternate sectionGoals may be documented in an alternate sectionGoals may be documented in an alternate sectionGoals may be documented in an alternate sectionGoals may be documented in an alternate sectionGoals may be documented in an alternate sectionGoals may be documented in an alternate sectionGoals may be documented in an alternate sectionGoals may be documented in an alternate sectionGoals may be documented in an alternate sectionGoals may be documented in an alternate section Care Teams (unrecognized sec tion and content) Team Status: Active Member Role Status Dates Dr. Marilee Jiang DO Family Provider Active Dr. Marilee Jiang , DO Primary Care Provider Active Team Status: Inactive Member Role Status Dates Dr. Marilee Jiang , DO Primary Care Provider, Referring Keyonna cassidy Active Eloisa Church ORTHOPAEDIC NURSE, ORTHOPAEDIC NURSE-C Attending Provider Active Team Status: Inactive Member Role Status Dates Dr. Marilee Jiang DO Primary Care Provider Active Dr. Gem Gamboa MD Attending Provider, Referring P rovider Active Team Status: Inactive Member Role Status Dates Dr. Marilee Jiang DO Primary Care Provider, Attending P rovider Active Team Status: Inactive Member Role Status Dates Dr. Marilee Jiang DO Primary Care Provider Active Dr. Semaj Bhatt MD Attending Provider, Emergency Provi flaco Active Team Status: Active Member Role Status Dates Dr. Marilee Jiang DO Primary Care Provide r, Attending Provider, Referring Provider Active Team Status: Inactive Member Role Status Dates Dr. Marilee Jiang DO Primary Care Provide r, Attending Provider, Referring Provider Active Team Status: Active Member Role Status Dates Dr. Marilee Jiang DO Primary Care Provider Active Dr. Vamsi Yost MD Attending Provider Active Team Status: Active Member Role Status Dates Dr. Marilee Jiang DO Primary Care Provider Active Self Referred Attending Provider Active Team Status: Active Member Role Status Dates Dr. Marilee Jiang DO Primary Care Provider Active Dr. Pritesh Black MD Attending Provider, Referring P rovider Active Team Status: Inactive Member Role Status Dates Dr. Marilee Jiang DO Primary Care Provider Active Alcon ZAPATA PA-C Attending Provider, Referring Pr ovider Active Team Status: Inactive Member Role Status Dates Dr. Marilee Jiang DO Primary Care Provider Active Dr. Pritesh Black MD Attending Provider, Referring P rovider Active Team Status: Inactive Member Role Status Dates Dr. Marilee Jiang DO Primary Care Provider, Referring P rovider Active Dr. Darryl Lackey DO Attending Provider Active Team Status: Inactive Member Role Status Dates Dr. Marilee Jiang DO Primary Care Provider Active Tutu Brown MD Attending Provider, Emergency Provid er Active Team Status: Inactive Member Role Status Dates Dr. Marilee Jiang DO Primary Care Provider Active Dr. Rohit Smith MD Emergency Provider Active Team Status: Active Member Role Status Dates Dr. Marilee Jiang DO Primary Care Provider Active Team Status: Inactive Member Role Status Dates Dr. Marilee Jiang DO Primary Care Provider Active Start: April 15, 2024 End: April 15, 2024 Dr. Marilee Jiang DO Attending Provider Active St art: April 15, 2024 End: April 15, 2024 Dr. Marilee Jiang DO Referring Provider Active St art: April 15, 2024 End: April 15, 2024 Team Status: Inactive Member Role Status Dates Dr. Marilee Jiang DO Primary Care Provider Active Start: April 21, 2024 End: April 21, 2024 Dr. Marilee Jiang DO Attending Provider Active St art: April 21, 2024 End: April 21, 2024 Dr. Marilee Jiang DO Referring Provider Active St art: April 21, 2024 End: April 21, 2024 Team Status: Inactive Member Role Status Dates Dr. Marilee Jiang DO Primary Care Provider Active Start: April 24, 2024 End: April 24, 2024 Dr. Marilee Jiang DO Attending Provider Active St art: April 24, 2024 End: April 24, 2024 Dr. Marilee Jiang DO Referring Provider Active St art: April 24, 2024 End: April 24, 2024 Team Status: Inactive Member Role Status Dates Dr. Marilee Jiang DO Primary Care Provider Active Start: May 05, 2024 End: May 05, 2024 Dr. Marilee Jiang DO Attending Provider Active St art: May 05, 2024 End: May 05, 2024 Dr. Marilee Jiang DO Referring Provider Active St art: May 05, 2024 End: May 05, 2024 Team Status: Inactive Member Role Status Dates Dr. Marilee Jiang DO Primary Care Provider Active Start: May 12, 2024 End: May 12, 2024 Dr. Marilee Jiang DO Attending Provider Active St art: May 12, 2024 End: May 12, 2024 Dr. Marilee Jiang DO Referring Provider Active St art: May 12, 2024 End: May 12, 2024 Team Status: Active Member Role Status Dates Dr. Marilee Jiang DO Primary Care Provider Active Start: May 12, 2024 Dr. Todd Lobo MD Attending Provider Active S tart: May 12, 2024 Team Status: Inactive Member Role Status Dates Dr. Marilee Jiang DO Primary Care Provider Active Start: May 13, 2024 End: May 13, 2024 Dr. Marilee Jiang DO Attending Provider Active St art: May 13, 2024 End: May 13, 2024 Dr. Marilee Jiang DO Referring Provider Active St art: May 13, 2024 End: May 13, 2024 Team Status: Inactive Member Role Status Dates Dr. Marilee Jiang DO Primary Care Provider Active Start: June 03, 2024 End: June 03, 2024 Dr. Gem Gamboa MD Attending Provider Active Start: June 03, 2024 End: June 03, 2024 Dr. Gem Gamboa MD Referring Provider Active Start: June 03, 2024 End: June 03, 2024 Team Status: Inactive Member Role Status Dates Dr. Marilee Jiang DO Primary Care Provider Active Start: June 17, 2024 End: June 17, 2024 Dr. Gem Gamboa MD Attending Provider Active Start: June 17, 2024 End: June 17, 2024 Dr. Gem Gamboa MD Referring Provider Active Start: June 17, 2024 End: June 17, 2024 Team Status: Inactive Member Role Status Dates Dr. Marilee Jiang DO Primary Care Provider Active Start: July 16, 2024 End: July 16, 2024 Dr. Marilee Jiang DO Attending Provider Active St art: July 16, 2024 End: July 16, 2024 Dr. Marilee Jiang DO Referring Provider Active St art: July 16, 2024 End: July 16, 2024 Team Status: Inactive Member Role Status Dates Dr. Marilee Jiang DO Primary Care Provider Active Start: August 28, 2024 End: August 28, 2024 Dr. Marilee Jiang DO Referring Provider Active St art: August 28, 2024 End: August 28, 2024 Dr. Darryl Lackey DO Attending Provider Active Start: August 28, 2024 End: August 28, 2024 Team Status: Inactive Member Role Status Dates Dr. Marilee Jiang DO Primary Care Provider Active Start: September 14, 2024 End: September 14, 2024 Dr. Jay Patel DO Emergency Provider Active Start: September 14, 2024 End: September 14, 2024 Team Status: Active Member Role/Relationship Status Dates Dr. Marilee Jiang DO Primary Care Provider Active Team Status: Inactive Member Role/Relationship Status Dates Dr. Marilee Jiang DO Primary Care Provider Active Start: July 16, 2024 End: July 16, 2024 Dr. Marilee Jiang DO Attending Provider Active St art: July 16, 2024 End: July 16, 2024 Dr. Marilee Jiang DO Referring Provider Active St art: July 16, 2024 End: July 16, 2024 Team Status: Inactive Member Role/Relationship Status Dates Dr. Marilee Jiang DO Primary Care Provider Active Start: August 28, 2024 End: August 28, 2024 Dr. Marilee Jiang DO Referring Provider Active St art: August 28, 2024 End: August 28, 2024 Dr. Darryl Lackey DO Attending Provider Active Start: August 28, 2024 End: August 28, 2024 Team Status: Inactive Member Role/Relationship Status Dates Dr. Marilee Jiang DO Primary Care Provider Active Start: September 14, 2024 End: September 14, 2024 Dr. Jay Patel DO Attending Provider Active Start: September 14, 2024 End: September 14, 2024 Dr. Jay Patel DO Emergency Provider Active Start: September 14, 2024 End: September 14, 2024 Team Status: Inactive Member Role/Relationship Status Dates Dr. Marilee Jiang DO Primary Care Provider Active Start: October 16, 2024 End: October 16, 2024 Dr. Marilee Jiang DO Attending Provider Active St art: October 16, 2024 End: October 16, 2024 FOR RECORDS PERTAINING TO PATIENTS WHO ARE [...] BE BASED ON THE PRIMARY CLINICAL RECORDS. [facility] [employer] provides no warranty or guarantee of the accuracy or completeness of information in this document.
== END | disposition home or self-care (01) ==
LOC: RAD 09:42
PROVIDERS: PCP Family Medicine; Referring Provider Internal Medicine Gastroenterology; Visit Provider Internal Medicine Gastroenterology
DX: R13.10 Dysphagia, unspecified (principal)
CPT/HCPCS: 74221

== ENCOUNTER → 2024-11-28 | Outpatient (CLI) | payer MEDICARE, OTHER, SELFPAY | END | disposition home or self-care (01) | LOC: LABSPEC 16:20 | PROVIDERS: PCP Family Medicine; Visit Provider Nurse Practitioner Family | DX: N39.0 Urinary tract infection, site not specified (principal) | CPT/HCPCS: 87077; 87086; 87088; 87186 ==

== ENCOUNTER → 2024-12-29 | Outpatient (CLI) | payer MEDICARE, OTHER, SELFPAY | END | disposition home or self-care (01) | LOC: LABSPEC 16:16 | PROVIDERS: PCP Family Medicine; Visit Provider Family Medicine | DX: R30.0 Dysuria (principal) | CPT/HCPCS: 87077; 87086; 87088; 87186 ==

== ENCOUNTER → 2025-03-09 | Outpatient (CLI) | payer MEDICARE, OTHER, SELFPAY ==
--- NOTE | 2025-03-09 14:53 | SP.MBSS_ITS ---
Modified Barium Swallow Patient Information Study Date: 03/09/25 Study Time: 13:00 Direct Billable Minutes: 99 Total Minutes procedure & reportin Diagnosis: Dysphagia R13.10 Referring Physician: Darryl Lackey Reason for Referral: The patient was referred for MBSS from professional services specialist, Dr. Lackey. From most recent GI progress note on 08/28/2024, the patient was reporting chronic cough after eating, trouble swallowing ice water, odynophagia, and constipation. Flower Cheniller is concerned she is experiencing episodes of aspiration and possible oropharyngeal dysphagia. Esophagram 10/31/2024 revealed gastroesophageal reflux. Today, pt reported trouble swallowing characterized by coughing w/ both food and drink, usually daily. She reports these issues have occurred for at least 5 years. Medical History: Medical History Diarrhea Diabetes Gastroparesis Unsteady gait Shortness of breath Asthma Surgical History History of knee replacement History of hysterectomy History of colonoscopy History of left inguinal hernia repair History of left inguinal hernia repair History of left inguinal hernia repair Current Diet Ordered: Regular textures / Thin liquids Mental Status: WNL Respiratory Status: Oxygenating on Room Air Penetration-Aspiration Scale Penetration-Aspiration Scale: OBJECTIVE ASSESSMENT OF SWALLOW FUNCTION (QUANTITATIVE ? PER TRIAL): PENETRATION / ASPIRATION SCALE (VENEGAS): 1 = does not enter airway 2 = enters airway/above vocal folds/ejected 3 = enters airway/above vocal folds/not ejected 4 = enters airway/contacts vocal folds/ejected 5 = enters airway/contacts vocal folds/not ejected 6 = enters airway/below vocal folds/ejected 7 = enters airway/below vocal folds/not ejected despite effort 8 = enters airway/below vocal folds/no effort VIDEOFLOROSCOPIC SCALE SCORE (VENEGAS): Grade I = aspiration of material that has penetrated into the laryngeal vestibule, intact cough reflex Grade II = aspiration < 10 % of the bolus, intact cough reflex Grade III = aspiration of < 10 % of the bolus, reduced cough reflex or aspiration of > 10 % of the bolus, intact cough reflex Grade IV = aspiration of > 10 % of the bolus, reduced cough reflex Penetration-Aspiration Scale Score Thin Liquid via teaspoon: Result: 2= enter airway/above vocal folds/ejected Thin Liquid via teaspoon Trial 2: Result: 2= enter airway/above vocal folds/ejected Thin Liquid via large single sip: cup: Result: 2= enter airway/above vocal folds/ejected Thin Liquid via sequential sips: cup: Result: 5= enters airways/contacts vocal folds/not ejected [place] Thick Liquid via large single sip: cup: Result: 2= enter airway/above vocal folds/ejected Comment: Cued throat clear = somewhat effective to clear penetrated contrast from VF from previous trial. Pudding via teaspoon: Result: 1= does not enter airway Comment: Esophageal screen - Pudding had mostly cleared through the LES, then had mild- moderate retrograde flow to the lower esophagus. 1/2 Cookie: Result: 1= does not enter airway Comment: Cued cough 2X and re-swallow to clear trace residues from VF remaining since sequential sips of thin liquids via cup. Thin Liquid via single sip: straw: Result: 2= enter airway/above vocal folds/ejected Thin Liquid via large single sip: cup Trial 2: Result: 2= enter airway/above vocal folds/ejected Oral Phase Labial Seal: No Labial Escape Tongue Control During Bolus Hold: Posterior escape of greater than half of bolus Bolus Preparation/Mastication: Slow prolonged chewing/mashing with complete recollection Bolus Transport/Lingual Motion: Delayed initiation of tongue motion Oral Residue: Residue collection on oral structures Pharyngeal Phase Soft Palate Elevation: Trace column of contrast/air between soft palate and pharyngeal wall Laryngeal Elevation: Partial superior movement thyroid cart/partial apprx aryt- epig petiole Anterior Hyoid Excursion: Partial anterior movement Epiglottic Movement: Complete inversion Laryngeal Vestibule Closure at Height of Swallow: Incomplete; narrow column of air/contrast in laryngeal vestibule Pharyngeal Stripping Wave: Present - complete Pharyngoesophageal Segment Opening: Complete distension and complete duration; no obstruction of flow Tongue Base Retraction: Narrow column of contrast between tongue base & post. pharyngeal wall Pharyngeal Residue: Trace residue within or on pharyngeal structures Esophageal Phase Esophageal Clearance: Esophageal retention w/ retrograde flow below pharyngoesophageal seg. Diagnosis/Impression Diagnosis: Mild oropharyngeal dysphagia R13.12; Esophageal dysphagia R13.14 MBS Impressions: The oral phase is primarily marked by... -Decreased bolus control w/ posterior loss of >1/2 of the bolus to pyriform sinuses prior to swallow onset. -Delayed tongue motion for A-P transport. -Slowed, but complete mastication of cookie. -Mild oral residue of cookie, which fully cleared w/ a second swallow. The pharyngeal phase is primarily marked by... -Mildly decreased TB retraction w/ sequential thin; otherwise, good pharyngeal motility. -Decreased airway closure w/ anterior hyoid excursion and laryngeal elevation w/ deep laryngeal penetration of thin liquids to the vocal folds, which did not fully eject. The esophageal phase is primarily marked by... -Pudding had mostly cleared through the LES, then had mild-moderate retrograde flow through the LES to the lower esophagus. Recommendations Diet: Regular Textures (Easy to Chew Meats) and Thin Liquids Compensatory Strategies: Small Bites, Small Sips, Slow Rate (SIPS 1 AT A TIME), Alternate bites/solids and sips/liquids and Sitting upright (DURING AND 30-60MIN AFTER MEAL) Recommend Repeat Modified Barium Swallow: TBD Need for Skilled Speech Therapy Services: Yes Comment: -Train the patient in use of strategies to decrease risk for aspiration and reflux aspiration. -Education re: GERD management strategies. -Train the patient in pharyngeal exercise program (lingual resistance, Sammy, CTAR, Alcira). Recommended Referrals: GI Consult (Please continue to follow w/ GI for management of GERD and esophageal dysphagia) Education Completed: 1. Described result of evaluation., 2. Pt understands evaluation & agrees with goals and treatment plan. and 7. Pt requires further education on strategies & risks. Status Active ST Patient: Active Contact Information [facility] Speech Therapy:: Fern Hammond M.A. [facility]-[employer] SUPER[employer] Speech-Language Pathologist [facility] [address] [place] [address] [email or web address] [phone]
== END | disposition home or self-care (01) ==
LOC: RAD 12:19
PROVIDERS: PCP Family Medicine; Referring Provider Internal Medicine Gastroenterology; Visit Provider Internal Medicine Gastroenterology
DX: R13.10 Dysphagia, unspecified (principal)
CPT/HCPCS: 74230; 92611

== ENCOUNTER 2025-03-15 02:43 | Inpatient (IN) | payer MEDICARE, OTHER, SELFPAY ==
[2025-03-15] VITALS (13 sets, daily range): BP systolic 125–142; BP diastolic 49–73; PULSE 60–87; RESP 16–22; TEMP 36.4–36.8; O2SAT 95–99; BMI 42.0; BMI 37.0
--- NOTE | 2025-03-15 02:48 | EKG12_ITS ---
Test Reason : sob Blood Pressure : */* mmHG Vent. Rate : 85 BPM Atrial Rate : 88 BPM P-R Int : * ms QRS Dur : 158 ms QT Int : 436 ms P-R-T Axes : * 12 136 degrees QTcB Int : 518 ms Normal sinus rhythm Left bundle branch block Abnormal ECG Confirmed by LIGIA SOSA, BON ([id number]), film editor supervisor LEO GARY ([id number]) on 03/16/2025 1:46:21 PM Referred By: Confirmed By: BON STRONG MD
[2025-03-15 03:08] LABS: Hematocrit 32.2 % (37-47); Hemoglobin 10.5 g/dL (12.0-15.0); Immature Granulocytes Count 0.100 X10^3/uL (0.0-0.0); Mean Corp Hgb Conc 32.6 g/dL (32-36); Mean Corpuscular Volume 84.3 fL (81-99); Mean Platelet Vol. 8.9 fl (6.2-12.0); NRBC Flagged by Analyzer 0 % (0-5); Platelet Count 296 K/mm3 (150-450); RBC Distribution Width CV 15.5 % (11.6-14.6); RBC Distribution Width SD 47.4 fl (35.1-43.9); Red Blood Count 3.82 M/mm3 (4.2-5.4); White Blood Count 9.5 K/mm3 (4.4-11.0)
--- NOTE | 2025-03-15 03:10 | RAD_ITS ---
PROCEDURE: CHEST PA AND LATERAL 03/15/2025 REASON FOR EXAM: SHORTNESS OF BREATH TECHNIQUE: Procedure Code: RADCXR Modality: DX Procedure: CHEST PA AND LATERAL COMPARISON: 01/02/2024 FINDINGS: Lungs are expanded with superimposed interstitial opacifications and left pleural effusion. Findings suggest CHF though a diffuse inflammatory process could have a similar appearance. Follow-up recommended to ensure resolution Peripheral calcifications noted in the thoracic aorta. Right lower lung zone nodule. Bony structures show degenerative change and healed bilateral ribs fractures. RAD/Chest PA and Lateral IMPRESSION: Interstitial opacifications and left pleural effusion suggest pulmonary vascula r congestion but could also be seen with a diffuse inflammatory process. Follow-up recommended to ensure resolution. Right lower lung zone nodule. New since the prior study, advise follow up. Reading [facility]
[2025-03-15 03:48] LABS: Pro- Brain NATRIURETIC PEPTIDE 1074 pg/mL (<=1800); Troponin T High Sensitivity 22 ng/L (<=14)
[2025-03-15 04:17] LABS: AST(SGOT) 36 U/L (<=31); Alanine Aminotransfer ALT/SGPT 42 U/L (<=34); Albumin, Serum 3.6 g/dL (3.4-4.8); Alkaline Phosphatase 73 U/L (35-104); Anion Gap 10 (5-15); BUN 20 mg/dL (4-19); BUN/Creat Ratio 33.1 RATIO (10-20); Calcium,Total 9.0 mg/dL (7.6-11.0); Carbon Dioxide 25.4 mmol/L (21.0-32.0); Chloride 98 mmol/L (98-108); Estimated Creatinine Clearance 60.39 ml/min (50-250); Globulin 3.7 g/dL (2.2-4.2); Glucose 242 mg/dL (70-99); Potassium 3.8 mmol/L (3.3-5.1)
--- OUTSIDE RECORDS SUMMARY | 2025-03-15 04:25 | XMS RPT_ITS | CCD ---
Author Organization [facility] CliniSynj Care Team Providers Care Breakfast Cook Name Role Phone Dr. Marilee Jiang Primary Care Provider Dr. Marilee Jiang Referring Provider Ranjit RODEO PERFORMER, RODEO PERFORMER-C Eloisa Holman Attending Provider [phone] Dr. Marilee Jiang Primary Care Provider Dr. Vamsi Yost Attending Provider [phone] Dr. Marilee Jiang Referring Provider Ranjit RODEO PERFORMER, RODEO PERFORMER-C Eloisa Holman Attending Provider [phone] Dr. Marilee Jiang Primary Care Provider Dr. Marilee Jiang Referring Provider Dr. Darryl Lackey Attending Provider [phone] Dr. Marilee Jiang DO Primary Care Provider [phone] Marilee Jiang DO Attending Provider Dr. Marilee Jiang DO Referring Provider Dr. Todd Lobo MD Attending Provider Dr. Gem Gamboa MD Attending Provider Dr. Gem Gamboa MD Referring Provider Dr. Marilee Jiang DO Primary Care Provider [phone] Marilee Jiang DO Attending Provider Dr. Marilee Jiang DO Referring Provider Dr. Darryl Lackey DO Attending Provider Dr. Jay Patel DO Emergency Provider [phone] Malnancy DO, Dr. Hunt Primary Care Provider [phone] Jorge DO, Dr. Thompson Attending Provider Friend DO, Dr. Andrews Referring Provider Apolinar DO, Dr. Hunt Primary Care Provider [phone] Apolinar PIÑA, Dr. Hunt Referring Provider [phone] Apolinar DO, Dr. Hunt Attending Provider Cooper SOSA, Dr. Rabago Attending Provider Alex RODEO PERFORMER-C, Mya Attending Provider Apolinar DO, Dr. Hunt Primary Care Provider [phone] Ziyad DO, Dr. Andrews Attending Provider Malys, Marilee Attending Unavailable Malys, Marilee Primary Care Unavailable Malys, Marilee Referring Unavailable Malys, Marilee Primary Care Unavailable Yamil, [place] Attending Unavailable Malys, Marilee Primary Care Unavailable Wyneski, Gem Attending Unavailable Malys, Marilee Referring Unavailable FriendDarryl Attending Unavailable Malys, Marilee Primary Care Unavailable Malys, Marilee Referring Unavailable Malys, Marilee Attending Unavailable Malys, Marilee Referring Unavailable Malys, Marilee Primary Care Unavailable SchwigerJay Attending Unavailable Malys, Marilee Primary Care Unavailable Wyneski, Gem Attending Unavailable Malys, Marilee Primary Care Unavailable Wyneski, Gem Referring Unavailable Malys, Marilee Attending Unavailable Malys, Marilee Primary Care Unavailable Friend, Darryl Referring Unavailable FriendDarryl Attending Unavailable Malys, Marilee Primary Care Unavailable AlexMya Attending Unavailable Malys, Marilee Primary Care Unavailable Malys, Marilee Attending Unavailable Malys, Marilee Primary Care Unavailable Malys, Mrailee Primary Care Unavailable Wyneski, Gem Referring Unavailable Wyneski, Gem Attending Unavailable Malys, Marilee Primary Care Unavailable Malys, Marilee Referring Unavailable Malys, Marilee Attending Unavailable Malys, Marilee Attending Unavailable Malys, Marilee Primary Care Unavailable Malys, Marilee Referring Unavailable Malys, Marilee Attending Unavailable Malys, Marilee Primary Care Unavailable Malys, Marilee Referring Unavailable Malys, Marilee Attending Unavailable Malys, Marilee Referring Unavailable Malys, Marilee Primary Care Unavailable Malys, Marilee Primary Care Unavailable Malys, Marilee Referring Unavailable Malys, Marilee Attending Unavailable Allergies Allergy Classification Reported Allergen(s) Allergy Type Date of Onset Reaction(s) Facility (20 sources) Aspirin Drug Allergy 2 [facility] (20 sources) Codeine Drug Allergy 2 [facility] (20 sources) levoFLOXacin Drug Allergy 2 [facility] (20 sources) Nonsteroidal Anti-inflammatory Compounds Allergy to substance 2 [facility] (20 sources) Penicillins Allergy to substance 2 [facility] (20 sources) Solifenacin Drug Allergy 2 [facility] (20 sources) Sulfonamides (Antibiotic) Allergy to substance 2 [facility] (8 sources) oxyCODONE Drug Allergy 4 [facility] (1 source) Aspirin Drug Allergy 5 [facility] (1 source) Codeine Drug Allergy 5 [facility] (1 source) levoFLOXacin Drug Allergy 5 [facility] (1 source) NSAIDs Drug allergy (disorder) 5 [facility] (1 source) oxyCODONE Drug Allergy 5 [facility] (1 source) Penicillins Drug allergy (disorder) 5 [facility] (1 source) Solifenacin Drug Allergy 5 [facility] (1 source) Sulfonamides (Antibiotic) Drug allergy (disorder) 5 [facility] Medications Current Medications Medication Drug Class(es) Dates Sig (Normalized) Sig (Original) ascorbic acid 500 mg oral capsule (20 sources) Vitamin C Start: 11-08-2017 take 1 capsule by mouth once daily Ascorbic Acid (Vitamin C) 500 MG capsule Active 500 mg PO DAILY November 08, 2017 12:00am supplement brimonidine tartrate 1.5 mg/ml ophthalmic solution (20 sources) alpha-Adrenergic Agonist Start: 11-08-2017 Brimonidine 1 DROP bottle Active 1 NMA Left Eye TWICE A DAY November 08, 2017 12:00am damaged eye calcium carbonate 1500 mg oral tablet (20 sources) Start: 11-08-2017 take 1 tablet by mouth at bedtime Calcium Carbonate 600 MG tablet Active 600 mg PO AT BEDTIME November 08, 2017 12:00am supplement cholecalciferol 0.125 mg oral capsule (20 sources) Vitamin D Start: 11-08-2017 take 1 capsule by mouth once daily Cholecalciferol (Vitamin D3) (Vitamin D3) 5,000 UNIT capsule Active 5000 U PO DAILY November 08, 2017 12:00am supplement cyclobenzaprine hydrochloride 5 mg oral tablet (8 sources) Muscle Relaxant Start: 08-03-2023 take 1 tablet by mouth twice daily as needed for muscle spasms Cyclobenzaprine 5 mg tablet Active 5 mg PO TWICE A DAY as needed for muscle spasm 10 0 August 03, 2023 11:25pm glimepiride 4 mg oral tablet (20 sources) Sulfonylurea Start: 11-08-2017 take 1 tablet by mouth twice daily Glimepiride 4 MG tablet Active 4 mg PO TWICE A DAY November 08, 2017 12:00am diabetes insulin glargine 100 unt/ml injectable solution (20 sources) Insulin Analog Start: 11-08-2017 Insulin Glargine (Lantus U-100 Insulin) 100 UNIT/ML solution Active 18 U SC AT BEDTIME November 08, 2017 12:00am diabetes insulin, regular, human 100 unt/ml injectable solution (20 sources) Insulin Start: 11-30-2020 Insulin Regular Human (Novolin R Regular U-100 Insuln) 100 unit/mL solution Active 4 U SC November 30, 2020 12:00am losartan potassium 50 mg oral tablet (20 sources) Angiotensin 2 Receptor Chris Start: 11-08-2017 [...] diabetes Multivitamin (Daily Multiple) 1 EACH tablet (20 sources) Start: 11-08-2017 take 1 tablet by [...] EACH PO DAILY November 07, 2017 11:00pm [place]-3 Fatty Acids-Fish Oil (Fish Oil) 1 EACH capsule (20 sources) Start: 11-08-2017 [place]-3 Fatty Acids-Fish Oil (Fish Oil) 1 EACH capsule Active 1 NMA PO DAILY November 08, 2017 12:00am supplement Start: 11-08-2017 [place]-3 Fatty Acids-Fish Oil (Fish Oil) 1 EACH capsule Active 1 NMA PO DAILY November 08, 2017 12:00am Start: 11-08-2017 [place]-3 Fatty Acids-Fish Oil (Fish Oil) 1 EACH capsule Active 1 EACH PO DAILY November 08, 2017 12:00am Start: 11-08-2017 [place]-3 Fatty Acids-Fish Oil (Fish Oil) 1 EACH capsule Active 1 EACH PO DAILY November 07, 2017 11:00pm pioglitazone 45 mg oral tablet (20 sources) [...] 12:04am pravastatin sodium 10 mg oral tablet (20 sources) HMG-CoA Reductase Inhibitor Start: 11-08-2017 take 1 tablet by mouth at bedtime Pravastatin 10 MG tablet Active 10 mg PO AT BEDTIME November 08, 2017 12:00am cholesterol saccharomyces boulardii 250 mg oral capsule (20 sources) Start: 11-30-2020 take 1 capsule by mouth once daily Saccharomyces Boulardii (Daily Probiotic (S. Boulardii)) 250 mg capsule Active 250 mg PO DAILY November 30, 2020 12:00am traMADol hydrochloride 50 mg oral tablet (5 sources) Opioid Agonist Start: 09-14-2024 take 1 tablet by mouth every four hours as needed for pain Tramadol 50 mg tablet Active 50 mg PO EVERY 4 HOURS NEEDED as needed for Pain 20 3 0 September 14, 2024 12:00am vitamin b12 0.5 mg oral tablet (20 sources) Vitamin B12 Start: 11-08-2017 Cyanocobalamin (Vitamin B-12) 500 MCG tablet Active 1 {tbl} PO DAILY@0800 November 08, 2017 12:00am supplement Completed/Discontinued Medications Medication Drug Class(es) Dates Sig (Normalized) Sig (Original) acetaminophen 325 mg / HYDROcodone bitartrate 5 mg oral tablet (8 sources) Opioid Agonist Start: 08-03-2023 End: 08-28-2024 [...] 2023 magnesium oxide 400 mg oral tablet (20 sources) Start: 11-08-2017 End: 08-28-2024 take 1 tablet by mouth at bedtime Magnesium Oxide 400 MG tablet Discontinued 400 mg PO AT BEDTIME November 08, 2017 12:00am August 28, 2024 3:29pm supplement metoclopramide 5 mg oral tablet (20 sources) Dopamine-2 Receptor Antagonist Start: 06-02-2021 End: 07-02-2021 take 1 tablet by mouth three times daily 30 minutes before mealtime Metoclopramide Hcl 5 mg tablet Discontinued 5 mg PO THREE TIMES A DAY 90 30 0 June 02, 2021 1:00am 2021 1:00am July 02, 2021 1:04am administer 30 minutes before meals Nirmatrelvir-Ritonav ir (Paxlovid) 300 mg (150 mg x 2)-100 mg tablets,dose pack (7 sources) Start: 01-02-2024 End: 08-28-2024 Nirmatrelvir-Ritona vir [...] / nitrofurantoin, monohydrate 75 mg oral capsule (20 sources) Nitrofuran Antibacterial Start: 11-08-2017 End: 11-11-2017 take 1 capsule by mouth twice daily Nitrofurantoin Monohyd/M-Cryst (Macrobid 100 Mg Capsule) 100 MG capsule Discontinued 100 mg PO TWICE A DAY November 08, 2017 12:00am November 11, 2017 8:33am infection omeprazole 40 mg delayed release oral capsule (20 sources) Proton Pump Inhibitor Start: 11-04-2024 End: 12-30-2024 take 1 capsule by mouth twice daily Omeprazole 40 mg capsule,delayed release(DR/EC) Discontinued 40 mg PO TWICE A DAY 112 56 0 November 04, 2024 12:00am December 29, 2024 12:00am December 30, 2024 12:06am Start: 11-08-2017 End: 11-04-2024 take 1 capsule by mouth once daily Omeprazole 20 MG capsule,delayed release(DR/EC) Discontinued 20 mg PO DAILY November 08, 2017 12:00am November 04, 2024 2:40pm 24 hr oxybutynin chloride 5 mg extended release oral tablet (20 sources) Cholinergic Muscarinic Antagonist Start: 11-08-2017 End: 11-30-2020 take 1 tablet by mouth once daily Oxybutynin Chloride (Ditropan Xl) 5 MG tablet Discontinued 5 mg PO DAILY November 08, 2017 12:00am November 30, 2020 1:09pm urinary issues traZODone hydrochloride 150 mg oral tablet (20 sources) Serotonin Reuptake Inhibitor Start: 11-08-2017 End: [...] without complications] 04-28-2021 Chronic E Codes: Fall (16 sources) Fall; Translations: [Unspecified fall, initial encounter] 06-10-2023 Episodic Esophageal disorders (20 sources) Gastroesophageal reflux disease; Translations: [Gastro-esophageal reflux disease without esophagitis] Chronic Essential hypertension (20 sources) Benign essential hypertension; Translations: [Essential (primary) hypertension] 11-08-2017 Chronic Genitourinary symptoms and ill-defined conditions (1 source) Nocturnal enuresis; Translations: [Nocturnal enuresis] Onset: Chronic Genitourinary symptoms and ill-defined conditions (1 source) Dysuria; Translations: [Dysuria] Onset: 5 Episodic Malaise and fatigue (20 sources) Asthenia; Translations: [Weakness] 11-08-2017 Episodic Osteoarthritis (20 sources) Osteoarthritis; Translations: [Unspecified osteoarthritis, unspecified site] 11-08-2017 Chronic Other connective tissue disease (9 sources) Pain in left arm; Translations: [Pain in left arm] 06-10-2023 Episodic Other diseases of bladder and urethra (1 source) Overactive bladder; Translations: [Overactive bladder] Onset: 5 Chronic Other disorders of stomach and duodenum (20 sources) Gastroparesis syndrome; Translations: [Gastroparesis] 04-28-2021 Episodic Other disorders of stomach and duodenum (5 sources) Gastroparesis; Translations: [Gastroparesis] Episodic Other endocrine disorders (20 sources) Hypoglycemia; Translations: [Drug-induced 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] 03-30-2022 Chronic Other gastrointestinal disorders (20 sources) Irritable bowel syndrome; Translations: [Irritable bowel syndrome without diarrhea] 10-27-2021 Chronic Other gastrointestinal disorders (12 sources) Irritable bowel syndrome without diarrhea; Translations: [Irritable bowel syndrome] Chronic Other gastrointestinal disorders (20 sources) Diarrhea; Translations: [Diarrhea, unspecified] 04-28-2021 Episodic Other gastrointestinal disorders (5 sources) Diarrhea, unspecified; Translations: [Diarrhea] 02-26-2023 Episodic Other gastrointestinal disorders (4 sources) Dysphagia; Translations: [Dysphagia, unspecified] 08-28-2024 Episodic Other injuries and conditions due to external causes (9 sources) Abrasion; Translations: [Other injury of unspecified body region, initial encounter] 06-10-2023 Episodic Other lower respiratory disease (9 sources) Rib pain; Translations: [Pleurodynia] 06-10-2023 Episodic Other nutritional; endocrine; and metabolic disorders (20 sources) Obesity; Translations: [Obesity, unspecified] 11-08-2017 Chronic Other nutritional; endocrine; and metabolic disorders (1 source) Hypercalcemia; Translations: [Hypercalcemia] Onset: 5 Chronic Residual codes; unclassified (20 sources) Altered mental status; Translations: [Altered mental status, unspecified] 03-30-2022 Episodic Sprains and strains (12 sources) Lower back injury; Translations: [Strain of muscle, fascia and tendon of lower back, initial encounter] 01-10-2024 Episodic Superficial injury; contusion (9 sources) Hematoma of occipital scalp; Translations: [Contusion of scalp, initial encounter] 06-10-2023 Episodic Urinary tract infections (1 source) Urinary tract infection, site not specified; Translations: [Urinary tract infection, site not specified] Onset: Episodic Viral infection (7 sources) Disease caused by 2019-nCoV; Translations: [COVID-19] [...] drug level monitoring] Onset: 05-16-2024 Episodic Other gastrointestinal disorders (1 source) Dysphagia, unspecified; Translations: [Dysphagia, unspecified] Onset: 11-05-2024 Episodic Other lower respiratory disease (1 source) Shortness of breath; Translations: [Shortness of breath] Onset: 05-30-2024 Episodic Other screening for suspected conditions (not mental disorders or infectious disease) (1 source) Encounter for screening mammogram for malignant neoplasm of breast; Translations: [Encounter for screening mammogram for malignant neoplasm of breast] Onset: 05-15-2024 Episodic Spondylosis; intervertebral disc disorders; other back problems (9 sources) Sacroiliac disorder; Translations: [Sacrococcygeal disorders, not elsewhere classified] Onset: 09-17-2024 08-03-2023 Episodic Results Test Name Value Interpretation Reference Range Facility MR/Kerrie 02-27-2025 /[facility] [address] [place] [address], [address] [place] [address] OFFICE VISIT Date of Service: 02/27/25 MR#: [id number] Acct: [id number] Name: LAZARA SHANE Rep #: [id number] : 1940 Provider: Dr. Gem Jones i, MD Age/Sex: 84/F Location[facility] Status: Signed Intake Vital Signs 09/14/24 13:11 02/27/25 15:14 Height 5 ft 2 in 5 ft 2 in Weight: 210 lb BMI 38.4 BP 140/86 H Pulse 90 Intake Visit Reasons: UTI. Chief Complaint: possible uti Control Systems Eng Required: No Accompanied by: self Is patient in pain?: Yes (bladder pain ) Pain scale (1-10): 8 Allergies levofloxacin (From Levaquin) Allergy (Mild, Verified 02/27/25 15:09) rash oxycodone Allergy (Mild, Verified 02/27/25 15:09) Swelling aspirin Allergy (Verified 02/27/25 15:09) Rash codeine Allergy (Verified 02/27/25 15:09) Rash NSAIDS (Non-Steroidal Anti-Inflamma Allergy (Verified 02/27/25 15:09) Rash Penicillins Allergy (Verified 02/27/25 15:09) Rash solifenacin (From Vesicare) Allergy (Verified 02/27/25 15:09) Unknown Sulfa (Sulfonamide Antibiotics) Allergy (Verified 02/27/25 15:09) Rash Medications ???Medication ???Instructions ???Recorded ???Confirmed ???Type Cholecalciferol (Vitamin D3) 5,000 unit PO DAILY supplement 02/27/25 History [Vitamin D3] ascorbic acid (vitamin C) 500 mg 500 mg PO DAILY supplement 8 02/27/25 History capsule brimonidine 0.15 % eye drops 1 drp BID damaged eye 11/08/1711/14 History calcium carbonate 600 mg PO QHS supplement 11/08/17 02/27/25 History cyanocobalamin (vitamin B-12) 500 1 tab PO DAILY@0800 supplement 02/27/25 History mcg tablet glimepiride 4 mg tablet 4 mg PO BID diabetes 11/08/1711/14 History insulin glargine 100 unit/mL 18 unit subcut QHS diabetes 02/27/25 History subcutaneous solution (Lantus U-100 Insulin) losartan 50 mg tablet 75 mg PO DAILY blood pressure 10/2102/27/25 History multivitamin (Daily Multiple 1 ea PO DAILY supplement 11/08/17 02/27/25 History tablet) omega-3 fatty acids-fish oil 340 1 ea PO DAILY supplement 11/08/17 02/27/25 History mg-1,000 mg capsule (Fish Oil) pravastatin 10 mg tablet 10 mg PO QHS cholesterol 11/08/17 02/27/25 History Saccharomyces boulardii 250 mg 250 mg PO DAILY 11/30/20 02/27/25 History capsule (Daily Probiotic (S. boulardii)) insulin regular human 100 unit/mL 4 unit subcut 11/30/20 02/27/25 H istory injection solution pioglitazone 45 mg tablet (Actos) 45 mg PO DAILY 10/27/21 02/27/25 History desmopressin 0.2 mg tablet mg PO 02/27/25 02/27/25 History doxycycline monohydrate 100 mg 100 mg PO BID #14 caps 02/27/25 Rx capsule fesoterodine 4 mg tablet,extended 4 mg PO QDAY 02/27/25 02/27/25 Hi story release 24 hr losartan 25 mg tablet 25 mg PO QDAY 02/27/25 02/27/25 Hi story nitrofurantoin 100 mg PO BID #14 caps 03/02/25 R x monohydrate/macrocrystals 100 mg capsule (Macrobid) Have you fallen in the past year?: Yes (at the beginning of the year ) Nurse's Note: bladder pain and she state she feels a alot of pressure like everything is going to fall out [facility] Medical History Diarrhea Diabetes Gastroparesis Unsteady gait [...] use type: does not use HPI HPI Urology Chief Complaint: possible uti Details: LAZARA SHANE, is a 84 F. She is here for a possible acute urinary tract infection. She had a horrible night. When she voids it hurts in her urethra. No hematuria. There is urgency, frequency, nocturia, and increased. There is some back pain but this is chronic for her. Symptoms of an infection started about 1-2 weeks ago. There is no fever, chills, nausea, vomiting, or hematuria. ROS Const Constitutional: No chills, fatigue, fever(s), headache(s), night sweats, weakness, weight change, abnormal sleep pattern or change in appetite Eyes Eyes: No change in vision ENT ENT: No headache(s) or dry mouth Resp Respiratory: Positive for shortness of breath sob: SOB with activity; No cough, chest congestion or wheezing Cardio Cardiology (more content not included)... Normal [facility] Urine Cultureon 12-31-2024 [facility] Enterococcus faecali s Beta Lactamase-Reportable Negative [place] Count >100,000 Enterococcus faecalis: REACTION Ampicillin Islt PAULETTE <=2 S Ciprofloxacin Islt PAULETTE <=0.5 Gentamicin Synergy Susc Islt SYN-S S levoFLOXacin Islt PAULETTE 1 S Linezolid Islt PAULETTE 2 S Nitrofurantoin Islt PAULETTE <=16 S Streptomycin High Pot Susc Islt SYN-S S Tetracycline Islt PAULETTE <=1 S Vancomycin Islt PAULETTE 1 S Normal [facility] Comment on above: Performed By: #### M 100.3556 ####[facility] [id number] [place], [address] Urine cultureOrdered By: Yanique Jiang on 12-29-2024 Bacteria identified Cx Nom (U) Enterococcus faecalis Abnormal [facility] Urine Cultureon 11-30-2024 [facility] Enterococcus faecali s [place] Count >100,000 Enterococcus faecalis: REACTION Ampicillin Islt PAULETTE <=2 Ciprofloxacin Islt PAULETTE <=0.5 S Gentamicin Synergy Susc Islt SYN-S S levoFLOXacin Islt PAULETTE 1 S Linezolid Islt PAULETTE 2 S Nitrofurantoin Islt PAULETTE <=16 S Streptomycin High Pot Susc Islt SYN-S S Tetracycline Islt PAULETTE <=1 S Vancomycin Islt PAULETTE 1 S Normal [facility] Comment on above: Performed By: #### M 100.2200 ####[facility] [id number] [place], [place], [id number] Urine cultureOrdered By: Tabitha Johnson on 11-28-2024 Bacteria identified Cx Nom (U) Enterococcus faecalis Abnormal [facility] Esophagus Dual Contraston Esophagus Dual Contrast [facility] Imaging Services [address] [place], [place] [id number] Esophagus Dual Contrast MR#: [id number] Acct: [id number] Name: LAZARA SHANE Rep #: [id number] : 1940 F 84 From: Brenton clement MD PCP: Dr. Marilee Jiang DO Status: REG CLI Study: Esophagus Dual Contrast Date of Exam: 10/31/24 Exam# [id number] Ordering Dr: Darryl Lackey DO EXAM: Air-contrast esophagram barium swallow. CLINICAL HISTORY: Choking on solid foods. COMPARISON: None TECHNIQUE: The patient ingested barium. Fluoroscopic imaging of the esophagus was performed. Dose report: Fluoroscopy: 36 seconds. 6 mGy. FINDINGS: There is evidence of gastroesophageal reflux. No evidence of obstruction. No mass lesion is seen. The patient ingested a 12 mm tablet the barium without any difficulty. RAD/Esophagus Dual Contrast IMPRESSION: Gastroesophageal reflux. Reading Location: [place] [address] CC: Dr. Marilee Jiang DO; Darryl Lackey DO Mold Release Worker: Signed Normal [facility] Urine Cultureon 10-18-2024 [facility] Enterococcus faecali s [place] Count >100,000 Enterococcus faecalis: REACTION Ampicillin Islt PAULETTE <=2 Ciprofloxacin Islt PAULETTE <=0.5 S Gentamicin Synergy Susc Islt SYN-S S levoFLOXacin Islt PAULETTE 1 S Linezolid Islt PAULETTE 2 S Nitrofurantoin Islt PAULETTE <=16 S Streptomycin High Pot Susc Islt SYN-S S Tetracycline Islt PAULETTE <=1 S Vancomycin Islt PAULETTE 1 S Normal [facility] Comment on above: Performed By: #### M 100.3270 ####[facility] [id number] [place], [address] Urine cultureOrdered By: Yanique Jiang on 10-16-2024 Bacteria identified Cx Nom (U) Enterococcus faecalis Abnormal [facility] Emergency Department Summary on 09-14-2024 Emergency Department Summary [facility] Medical Records Department [address] [place] [address] Emergency Department Summary 09/14/24 MR#: [id number] Acct: [id number] Name: LAZARA SHANE Rep #: [id number] : 1940 84 From: Jay Patel DO PCP: Dr. Marilee Jiang DO Status:REG ER [...] bladder changes. Patient denies any saddle anesthesia. [facility] Medical History Diarrhea Diabetes Gastroparesis Unsteady gait [...] Reaction Status Date / [facility] Allergy Mild rash Verified 09/14/24 [...] Cardiovascular Ca (more content not included)... Normal [facility] Lumbar Spine 2 or 3 Viewson 09-14-2024 Lumbar Spine 2 or 3 Views [facility] Imaging Services [address] [place] [id number] Lumbar Spine 2 or 3 Views MR#: [id number] Acct: [id number] Name: LAZARA SHANE Rep #: [id number] : 1940 F 84 From: Jabier Morales DO PCP: Dr. Marilee Jiang DO Status: REG ER Study: Lumbar Spine 2 or 3 Views Date of Exam: Exam# [id number] Ordering Dr: Jay Patel DO PROCEDURE: LUMBAR [...] detected. Other findings as above [facility] CC: Dr. Jay Patel, DO; Dr. Marilee Jiang DO Mold Release Worker: Signed Normal [facility] Gastroenterology Visit Repor ton 08-28-2024 Gastroenterology Visit Report [facility]enterology [address] [place] [address] OFFICE VISIT Date of Service: 08/28/24 MR#: [id number] Acct: [id number] Name: LAZARA SHANE Rep #: [id number] : 1940 Provider: Darryl Lackey DO Age/Sex: 84/F Location: [facility] Status: Signed Intake Vital Signs 01/02/24 18:01 [...] who diagnosed IBS.. Worst during trip in [place] with hospitalization for what she thought was bowel obstruction; treated with IVF and discharged. Hold metformin ? Biochemical ESR, celiac, TSH WNL? CRP H8.6 ? Stool calprotectin, lactoferrin, EP, giardia, H.pylori WNL ? GET 2..22 128.26 minutes (12-56) ? Start low-dose reglan. OV .02.12 with holding metformin her A1c is 8.9 with blood sugars ranging from 130-180 with elevation above 200 approximately 8 times. Every couple of weeks is having episodes of loose stools for which immodium is helpful. Start active and increase reglan to 5mg TID OV 4.1.22 BM pattern normal movement alternating with hard/small stools for se (more content not included)... Normal [facility] Vitamin D 1,25-Dihydroxyon 0 07-21-2024 VIT D 1,25 DIHY 70.5 pg/mL Normal 24.8-81.5 [facility] Comment on above: Result Comment: Perf ormed at: BN - [facility] [address] [id number] Judicial Law Clerk: Saran Huynh MD, Phone: [phone] Performed By: #### L 3300.0960, L501.2920, L500.4050, L501.88757, L100.0100, L506.0400 ####[facility] [address] [place], [place], [id number] 1,25-dihydroxyvitamin D3 [Ma ss/Vol]Ordered By: Marilee Jiang on 07-16-2024 Vitamin D 1,25-Dihydroxy 70.5 pg/mL 24.8-81.5 [facility] Comment on above: Performed at: [facility] - [facility] [address] [id number] Director: Saran Huynh MD, Phone: [phone] Absolute lymphocyte countOrd ered By: Marilee Jiang on 07-16-2024 Lymphocytes Auto (Unsp spec) [#/Vol] 2.02 10*3/uL 0.83-4.51 [facility] Absolute neutrophil countOrd ered By: Marilee Jiang on 07-16-2024 Neutrophils (Bld) [#/Vol] 2.8 10*3/uL 2.0-7.7 [facility] Anion gap in Serum or Plasma Ordered By: Marilee Jiang on 07-16-2024 Anion gap [Moles/Vol] 10 mmol/L 5-15 [facility] Atypical lymphocyte percenta geOrdered By: Marilee Jiang on 03-26-2025 Atypical Lymphocytes 2+ % [facility] Automated lymphocyte count a s percentage of total leukocytesOrdered By: Marilee Jiang on 07-16-2024 Lymphocytes/100 WBC Auto (Unsp spec) 34.1 % 19-41 [facility] BUN/creatinine ratioOrdered By: Marilee Jiang on 07-16-2024 Urea nitrogen/Creatinine [Mass ratio] 29.9 mg/mg High 10-20 [facility] Basophil percentageOrdered B y: Marilee Jiang on 07-16-2024 Basophils/100 WBC (Bld) 0.7 % 0-1 [facility] Bilirubin, totalOrdered By: Marilee Jiang on 07-16-2024 Bilirubin [Mass/Vol] 0.28 mg/dL 0.00-1.30 [facility] CBC W/Diff, Automatedon 06-22 ATYPICAL LYMPH 2+ Normal [facility] Comment on above: Performed By: #### L 3300.0960, L501.9520, L500.4050, L501.40335, L100.0100, L506.0400 ####[facility] [address] [place], [place], [id number] Carbon dioxide, total [Moles /volume] in Central venous bloodOrdered By: Marilee Stevenancy on 07-16-2024 CO2 [Moles/Vol] 25.2 mmol/L 21.0-32.0 [facility] Chloride assayOrdered By: Vashti Jiang on 07-16-2024 Chloride [Moles/Vol] 98 mmol/L 98-108 [facility] Comprehensive Metabolic Prof ilon 07-16-2024 Albumin [Mass/Vol] 3.9 g/dL Normal 3.4-4.8 [facility] Comment on above: Performed By: #### L 3300.0960, L501.9520, L500.4050, L501.92025, L100.0100, L506.0400 ####[facility] [address] [place], [address] Albumin/Globulin [Mass ratio] 1.0 {ratio} Normal 0.9-2.4 [facility] Comment on above: Performed By: #### L 3300.0960, L501.9520, L500.4050, L501.34241, L100.0100, L506.0400 ####[facility] [address] [place], [address] ALK PHOS 72 U/L Normal 35-104 [facility] Comment on above: Performed By: #### L 3300.0960, L501.9520, L500.4050, L501.82090, L100.0100, L506.0400 ####[facility] [address] [place], [address] ALT [Catalytic activity/Vol] 20 U/L Normal <=34 [facility] Comment on above: Performed By: #### L 3300.0960, L501.9520, L500.4050, L501.63432, L100.0100, L506.0400 ####[facility] [address] [place], [address] AST [Catalytic activity/Vol] 31 U/L Normal <=31 [facility] Comment on above: Performed By: #### L 3300.0960, L501.9520, L500.4050, L501.80070, L100.0100, L506.0400 ####[facility] [address] [place], [address] Bilirubin [Mass/Vol] 0.28 mg/dL Normal 0.00-1.30 [facility] Comment on above: Performed By: #### L 3300.0960, L501.9520, L500.4050, L501.34469, L100.0100, L506.0400 ####[facility] [address] [place], [address] BUN/CRE 29.9 RATIO High 10-20 [facility] Comment on above: Performed By: #### L 3300.0960, L501.9520, L500.4050, L501.06383, L100.0100, L506.0400 ####[facility] [address] [place], [address] Calcium [Mass/Vol] 9.5 mg/dL Normal 7.6-11.0 [facility] Comment on above: Performed By: #### L 3300.0960, L501.9520, L500.4050, L501.49196, L100.0100, L506.0400 ####[facility] [address] [place], [address] Chloride [Moles/Vol] 98 mmol/L Normal 98-108 [facility] Comment on above: Performed By: #### L 3300.0960, L501.9520, L500.4050, L501.27099, L100.0100, L506.0400 ####[facility] [address] [place], [address] CO2 [Moles/Vol] 25.2 mmol/L Normal 21.0-32.0 [facility] Comment on above: Performed By: #### L 3300.0960, L501.9520, L500.4050, L501.03871, L100.0100, L506.0400 ####[facility] [address] [place], [address] Creatinine [Mass/Vol] 0.53 mg/dL Low 0.70-1.20 [facility] Comment on above: Performed By: #### L 3300.0960, L501.9520, L500.4050, L501.57626, L100.0100, L506.0400 ####[facility] [address] [place], [address] GAP 10 Normal 5-15 [facility] Comment on above: Performed By: #### L 3300.0960, L501.9520, L500.4050, L501.86608, L100.0100, L506.0400 ####[facility] [address] [place], [address] GFR/1.73 sq M.predicted among non-blacks MDRD (S/P/Bld) [Vol rate/Area] 92 mL/min/{1.73_m2} Normal >60 [facility] Comment on above: Result Comment: mL/m in/1.73m2 CKD-EPI Creatinine Equation (2020) Performed By: #### L 3300.0960, L501.9520, L500.4050, L501.97997, L100.0100, L506.0400 ####[facility] [address] [place], [address] Globulin (S) [Mass/Vol] 3.8 g/dL Normal 2.2-4.2 [facility] Comment on above: Performed By: #### L 3300.0960, L501.9520, L500.4050, L501.02141, L100.0100, L506.0400 ####[facility] [address] [place], [address] Glucose [Mass/Vol] 110 mg/dL High 70-99 [facility] Comment on above: Performed By: #### L 3300.0960, L501.9520, L500.4050, L501.39601, L100.0100, L506.0400 ####[facility] [address] [place], [address] Potassium [Moles/Vol] 4.5 mmol/L Normal 3.3-5.1 [facility] Comment on above: Performed By: #### L 3300.0960, L501.9520, L500.4050, L501.55898, L100.0100, L506.0400 ####[facility] [address] [place], [address] Sodium [Moles/Vol] 133 mmol/L Normal 133-145 [facility] Comment on above: Performed By: #### L 3300.0960, L501.9520, L500.4050, L501.02855, L100.0100, L506.0400 ####[facility] [address] [place], [address] T PROT 7.6 g/dL Normal 5.9-8.4 [facility] Comment on above: Performed By: #### L 3300.0960, L501.9520, L500.4050, L501.67679, L100.0100, L506.0400 ####[facility] [address] [place], [address] Urea nitrogen [Mass/Vol] 16 mg/dL Normal 4-19 [facility] Comment on above: Performed By: #### L 3300.0960, L501.9520, L500.4050, L501.30172, L100.0100, L506.0400 ####[facility] [address] [place], [address] Eosinophil percentageOrdered By: Marilee Jiang on 07-16-2024 Eosinophils/100 WBC (Bld) 3.9 % 0-5 [facility] Erythrocyte distribution wid th ratioOrdered By: Marilee Jiang on 07-16-2024 Erythrocyte distribution width (RBC) [Ratio] 17.4 % High 11.6-14.6 [facility] Erythrocyte distribution wid th standard deviationOrdered By: Marilee Jiang on 07-16-2024 Erythrocyte distribution width (RBC) [Entitic vol] 50.0 fL High 35.1-43.9 [facility] Erythrocyte distribution width (RBC) [Ratio] 50.0 fl High 35.1-43.9 [facility] Free T3on 07-16-2024 Free T3 [Mass/Vol] 2.8 pg/mL Normal 2.18-3.98 [facility] Comment on above: Performed By: #### L 3300.0960, L501.2520, L500.4050, L501.61581, L100.0100, L506.0400 ####[facility] [address] [place], [address] Free N2Pxaggzk By: Marilee herman on 07-16-2024 Free T3 [Mass/Vol] 2.8 pg/mL 2.18-3.98 [facility] Free Triiodothyronine (T3) pg/dL 2.8 pg/mL 2.18-3.98 [facility] GFR/1.73 sq M.predicted chay g non-blacks MDRD (S/P/Bld) [Vol rate/Area]Ordered By: Marilee Jiang on 07-16-2024 Estimated GFR (MDRD) Non-Af Amer 92 >60 [facility] Comment on above: mL/min/1.73m2 CKD-EP I Creatinine Equation (2020) Glomerular filtration rate ( GFR) estimation/1.73 sq m using serum, plasma, or whole bOrdered By: Marilee Jiang on 07-16-2024 GFR/1.73 sq M.predicted among non-blacks MDRD (S/P/Bld) [Vol rate/Area] 92 mL/min/{1.73_m2} >60 [facility] Comment on above: mL/min/1.73m2 CKD-EP I Creatinine Equation (2020) Hematocrit Auto (Bld) [Volum e fraction]Ordered By: Marilee Jiang on 07-16-2024 Hematocrit (Bld) [Volume fraction] 34.9 % Low 37-47 [facility] Hemoglobin measurementOrdere d By: Marilee Jiang on 07-16-2024 Hemoglobin (Bld) [Mass/Vol] 11.2 g/dL Low 12.0-15.0 [facility] Immature granulocytes/100 WB C Auto (Bld)Ordered By: Marilee Jiang on 07-16-2024 Immature granulocytes/100 WBC (Bld) 0.500 % 0.0-0.9 [facility] Comment on above: IG% - Immature Granu locytes (promyelocytes, myelocytes and metamyelocytes) > 1% indicates that a LEFT SHIFT is Present. Laboratory - Chemistry and C hemistry - challengeOrdered By: Marilee Jiang on 07-16-2024 AST [Catalytic activity/Vol] 31 U/L <32 [facility] Lymphocytes Auto (Unsp spec) [#/Vol]Ordered By: Marilee Jiang on 07-16-2024 Lymphocytes (Bld) [#/Vol] 2.02 10*3/uL 0.83-4.51 [facility] Lymphocytes/100 WBC Auto (Un sp spec)Ordered By: Marilee Jiang on 07-16-2024 Lymphocytes/100 WBC (Bld) 34.1 % 19-41 [facility] MCV (mean corpuscular volume ) determinationOrdered By: Marilee Jiang on 07-16-2024 MCV (RBC) [Entitic vol] 79.3 fL Low 81-99 [facility] Mean corpuscular hemoglobin (MCH) determinationOrdered By: Marilee Jiang on 07-16-2024 MCH (RBC) [Entitic mass] 25.5 pg Low 27.0-32.0 [facility] Mean corpuscular hemoglobin concentration (MCHC) determinationOrdered By: Marilee Jiang on 07-16-2024 MCHC (RBC) [Mass/Vol] 32.1 g/dL 32-36 [facility] Mean platelet volume determi nationOrdered By: Marilee Jiang on 07-16-2024 Platelet mean volume (Bld) [Entitic vol] 9.3 fL 6.2-12.0 [facility] Monocyte percentageOrdered B y: Marilee Jiang on 07-16-2024 Monocytes/100 WBC (Bld) 14.5 % High 0-10 [facility] Neutrophil percentageOrdered By: Marilee Jiang on 07-16-2024 Neutrophils/100 WBC (Bld) 46.3 % Low 47-70 [facility] Nucleated red blood cell per centageOrdered By: Marilee Jiang on 07-16-2024 Nucleated RBC/100 WBC (Bld) [Ratio] 0 % 0-5 [facility] Platelet countOrdered By: Vashti Jiang on 07-16-2024 Platelets (Bld) [#/Vol] 303 10*3/uL 150-450 [facility] Potassium (Unsp spec) [Mass/ Vol]Ordered By: Marilee Jiang on 07-16-2024 Potassium [Moles/Vol] 4.5 mmol/L 3.3-5.1 [facility] Potassium measurement (mass/ volume)Ordered By: Marilee Jiang on 07-16-2024 Potassium (Unsp spec) [Mass/Vol] 4.5 mmol/L 3.3-5.1 [facility] RBC Auto (Bld) [#/Vol]Ordere d By: Marilee Jiang on 07-16-2024 RBC (Bld) [#/Vol] 4.40 10*6/uL 4.2-5.4 [facility] Serum creatinine measurement (mass/volume)Ordered By: Marilee Jiang on 07-16-2024 Creatinine [Mass/Vol] 0.53 mg/dL Low 0.70-1.20 [facility] Serum globulin measurementOr dered By: Marilee Jiang on 07-16-2024 Globulin (S) [Mass/Vol] 3.8 g/dL 2.2-4.2 [facility] Serum glucose measurement (m ass/volume)Ordered By: Marilee Jiang on 07-16-2024 Glucose [Mass/Vol] 110 mg/dL High 70-99 [facility] Serum or plasma alanine woodard otransferase (ALT) measurementOrdered By: Marilee Jiang on 07-16-2024 ALT [Catalytic activity/Vol] 20 U/L <35 [facility] Serum or plasma albumin bhavani urement (mass/volume)Ordered By: Marilee Jiang on 07-16-2024 Albumin [Mass/Vol] 3.9 g/dL 3.4-4.8 [facility] Serum or plasma albumin/glob ulin mass ratioOrdered By: Marilee Jiang on 07-16-2024 Albumin/Globulin [Mass ratio] 1.0 {ratio} 0.9-2.4 [facility] Serum or plasma alkaline keenan sphatase measurementOrdered By: Marilee Jiang on 07-16-2024 ALP [Catalytic activity/Vol] 72 U/L 35-104 [facility] Serum or plasma calcitriol m easurement (mass/volume)Ordered By: Marilee Jiang on 07-16-2024 1,25-dihydroxyvitamin D3 [Mass/Vol] 70.5 pg/mL 24.8-81.5 [facility] Comment on above: Performed at: [address] [id number] Director: Saran Huynh MD, Phone: [phone] Serum or plasma calcium bhavani urement (mass/volume)Ordered By: Marilee Jiang on 07-16-2024 Calcium [Mass/Vol] 9.5 mg/dL 7.6-11.0 [facility] Serum or plasma urea nitroge n measurement (mass/volume)Ordered By: Marilee Jiang on 07-16-2024 Urea nitrogen [Mass/Vol] 16 mg/dL 4-19 [facility] Sodium levelOrdered By: Marilee Jiang on 07-16-2024 Sodium [Moles/Vol] 133 mmol/L 133-145 [facility] T4 Free Directon 07-16-2024 T4 FREE DIRECT 1.20 ng/dL Normal 0.76-1.46 [facility] Comment on above: Performed By: #### L 3300.0960, L501.9520, L500.4050, L501.55133, L100.0100, L506.0400 ####[facility] [address] [place], [place], [address] T4 freeOrdered By: Marilee Milner s on 07-16-2024 Free T4 [Mass/Vol] 1.20 ng/dL 0.76-1.46 [facility] TSH DL <= 0.005 mIU/L QnOrde red By: Marilee Jiang on 07-16-2024 Thyroid Stimulating Hormone (TSH) 2.270 uIU/mL 0.300-4.20 0 [facility] TSH Qn 2.270 uIU/mL 0.300-4.20 0 [facility] Thyroid Stim Hormone (TSH)on 07-16-2024 TSH 2.270 uIU/mL Normal 0.300-4.20 0 [facility] Comment on above: Performed By: #### L 3300.0960, L501.9520, L500.4050, L501.63235, L100.0100, L506.0400 ####[facility] [address] [place], [address] Total proteinOrdered By: Yanique Jiang on 07-16-2024 Protein [Mass/Vol] 7.6 g/dL 5.9-8.4 [facility] White blood cell (WBC) count Ordered By: Marilee Jiang on 07-16-2024 WBC (Bld) [#/Vol] 5.9 10*3/uL 4.4-11.0 [facility] Abdomen/Pelvis without Conto n 06-17-2024 Abdomen/Pelvis without Cont [facility] Services [address] [place], [place] [address] Abdomen/Pelvis without Cont MR#: [id number] Acct: [id number] Name: LAZARA SHANE Rep #: [id number] : 1940 F 83 From: Brenton clement MD PCP: Dr. Marilee Jiang, DO Status: REG CLI Study: Abdomen/Pelvis without Cont Date of Exam: 05/25 09/14 Exam# [id number] Ordering Dr: Gem Gamboa MD PROCEDURE: ABDOMEN/PELVIS [...] use of iterative reconstruction technique). Reading Location: [id number]-N CC: Dr. Gem Gamboa MD; Dr. Marliee Jiang DO Mold Release Worker: Signed Normal [facility] Basic Metabolic Profile (BMP )on 06-03-2024 BUN/CRE 20.4 RATIO High 10-20 [facility] Comment on above: Performed By: #### L 500.2500 ####[facility] [address] [place], [address] CA,Total 10.0 mg/dL Normal 8.5-10.1 [facility] Comment on above: Performed By: #### L 500.2500 ####[facility] [address] [place], [address] Chloride [Moles/Vol] 101 mmol/L Normal 98-107 [facility] Comment on above: Performed By: #### L 500.2500 ####[facility] [address] [place], [address] CO2 [Moles/Vol] 29.0 mmol/L Normal 21.0-32.0 [facility] Comment on above: Performed By: #### L 500.2500 ####[facility] [address] [place], [address] Creatinine [Mass/Vol] 0.59 mg/dL Normal 0.55-1.02 [facility] Comment on above: Result Comment: The validity of the calculated GFR GFRAA in patients over 70 years has not been determined. Clinical correlation is essential. Performed By: #### L 500.2500 ####[facility] [address] [place], [address] EST GFR - AA 126 mL/min Normal >60 [facility] Comment on above: Result Comment: Afri can Stateless GFR Calc Performed By: #### L 500.2500 ####[facility] [address] [place], [address] GAP 8 Normal 5-15 [facility] Comment on above: Performed By: #### L 500.2500 ####[facility] [address] [place], [address] GFR/1.73 sq M.predicted among non-blacks MDRD (S/P/Bld) [Vol rate/Area] 104 mL/min/{1.73_m2} Normal >60 [facility] Comment on above: Result Comment: Non- GFR Calc Performed By: #### L 500.2500 ####[facility] [address] [place], [address] Glucose [Mass/Vol] 150 mg/dL High 74-106 [facility] Comment on above: Result Comment: Fast ing Glucose result greater than or equal to 126 mg/dL suggests DIABETES MELLITUS per A.D.A. criteria. Performed By: #### L 500.2500 ####[facility] [address] [place], [address] Potassium [Moles/Vol] 3.3 mmol/L Low 3.5-5.1 [facility] Comment on above: Performed By: #### L 500.2500 ####[facility] [address] [place], [place], [address] Sodium [Moles/Vol] 138 mmol/L Normal 136-145 [facility] Comment on above: Performed By: #### L 500.2500 ####[facility] [address] [place], [place], [address] Urea nitrogen [Mass/Vol] 12 mg/dL Normal 7-18 [facility] Comment on above: Performed By: #### L 500.2500 ####[facility] [address] [place], [place], [address] Blood urea nitrogen (BUN)/cr eatinine ratioOrdered By: Gem Gamboa on 06-03-2024 Urea nitrogen/Creatinine [Mass ratio] 20.4 mg/mg High 10-20 [facility] Carbon dioxide measurementOr dered By: Gem Gamboa on 06-03-2024 CO2 [Moles/Vol] 29.0 mmol/L 21.0-32.0 [facility] Chloride measurementOrdered By: Gem Gamboa on 06-03-2024 Chloride [Moles/Vol] 101 mmol/L 98-107 [facility] Estimated glomerular filtrat ion rate (GFR) AmericanOrdered By: Gem Gamboa on 06-03-2024 Estimated GFR (MDRD) Amer 126 mL/min >60 [facility] Comment on above: GFR Calc Glomerular filtration rate ( GFR) estimationOrdered By: Gem Gamboa on 06-03-2024 Estimated GFR (MDRD) Non-Af Amer 104 mL/min >60 [facility] Comment on above: Non- GFR Calc GFR/1.73 sq M.predicted among non-blacks MDRD (S/P/Bld) [Vol rate/Area] 104 mL/min/{1.73_m2} >60 [facility] Comment on above: Non- GFR Calc Glucose measurementOrdered B y: Gem Gamboa on 06-03-2024 Glucose [Mass/Vol] 150 mg/dL High 74-106 [facility] Comment on above: Fasting Glucose resu lt greater than or equal to 126 mg/dL suggests DIABETES MELLITUS per A.D.A. criteria. Potassium measurementOrdered By: Gem Gamboa on 06-03-2024 Potassium [Moles/Vol] 3.3 mmol/L Low 3.5-5.1 [facility] Serum anion gap measurementO rdered By: Gem Gamboa on 06-03-2024 Anion gap [Moles/Vol] 8 mmol/L 5-15 [facility] Serum or plasma calcium bhavani urement (mass/volume)Ordered By: Gem Gamboa on 06-03-2024 Calcium [Mass/Vol] 10.0 mg/dL 8.5-10.1 [facility] Serum or plasma creatinine m easurement (mass/volume)Ordered By: Gem Gamboa on 06-03-2024 Creatinine [Mass/Vol] 0.59 mg/dL 0.55-1.02 [facility] Comment on above: The validity of the calculated GFR & GFRAA in patients over 70 years has not been determined. Clinical correlation is essential. Serum or plasma urea nitroge n measurement (mass/volume)Ordered By: Gem Gamboa on 06-03-2024 Urea nitrogen [Mass/Vol] 12 mg/dL 11-07 [facility] Sodium levelOrdered By: Susan Gamboa on 06-03-2024 Sodium [Moles/Vol] 138 mmol/L 136-145 [facility] Abdomen/Pelvis WITH Contrast on 05-13-2024 Abdomen/Pelvis WITH Contrast [facility] Imaging Services [address] [place], [place] [address] Abdomen/Pelvis WITH Contrast MR#: [id number] Acct: [id number] Name: LAZARA SHANE Rep #: [id number] : 1940 F 83 From: Marcia pulido MD PCP: Dr. Marilee Jiang DO Status: REG CLI Study: Abdomen/Pelvis WITH Contrast Date of Exam: Exam# [id number] Ordering Dr: Marilee Jiang DO [id number] HISTORY: ABD PAIN,WEIGHTLOSS. TECHNIQUE: Helically acquired images [...] Signed: Marcia Landis MD at 15:33 EST , CC: Dr. Marilee Jiang DO Mold Release Worker: Signed Normal [facility] Echo Completeon 05-12-2024 [facility] [address] [place] [address] Echo Complete 05/12/24 1304 MR#: [id number] Acct: [id number] Name: LAZARA SHANE Rep #: [id number] : 1940 83 From: Todd Lobo MD Attending Dr: Dr. Marilee Jiang, Status: REG CL I Ordering Dr: Marilee Jiang DO Date: 05/12/24 Location: [facility] Sex: F C Admitted: Reason For Study: [...] Marilee Jiang Performed By: Joe Fountain RCS 05/12/241621 Date Todd Lobo MD CC: Dr. Marilee Jiang, Date Dictated: 05/12/24 1304 Date Transcribed: 05/12/241621 Mold Release Worker: Signed Normal [facility] Protein Electroph, Son 05-07 Albumin [Mass/Vol] 3.2 g/dL Normal 2.9-4.4 [facility] Comment on above: Performed By: #### L 3100.3450, , ####[facility] [address] [place], [address] Albumin/Globulin [Mass ratio] 0.8 {ratio} Normal 0.7-1.7 [facility] Comment on above: Performed By: #### L 3100.3450, M1, ####[facility] [address] [place], [address] ALPHA-1 GLOBUL 0.3 g/dL Normal 0.0-0.4 [facility] Comment on above: Performed By: #### L 3100.3450, M1.2199, L4 ####[facility] [address] [place], [address] ALPHA-2 GLOBUL 0.9 g/dL Normal 0.4-1.0 [facility] Comment on above: Performed By: #### L 3100.3450, M1, ####[facility] [address] [place], [address] BETA GLOBULIN 1.2 g/dL Normal 0.7-1.3 [facility] Comment on above: Performed By: #### L 3100.3450, M100.2200, L400.2010 ####[facility] [address] [place], [address] GAMMA GLOBULIN 1.4 g/dL Normal 0.4-1.8 [facility] Comment on above: Performed By: #### L 3100.3450, M100.2200, L400 ####[facility] [address] [place], [address] Globulin (S) [Mass/Vol] 3.9 g/dL Normal 2.2-3.9 [facility] Comment on above: Performed By: #### L 3100.3450, M100.2200, L400 ####[facility] [id number] [place], [address] INTERPRETATION Comment Normal . [facility] Comment on above: Result Comment: Prot ein electrophoresis scan will follow via computer, mail, or relief map modeler delivery. Performed By: #### L 3100.3450, M100.2200, L400 ####[facility] [address] [place], [address] M-SPIKE Not Observed Normal Not Observed [facility] Comment on above: Performed By: #### L 3100.3450, M100.2200, L400 ####[facility] [address] [place], [address] NOTE: Comment Normal . [facility] Comment on above: Result Comment: The SPE pattern appears unremarkable. Evidence of monoclonal protein is not apparent. Performed at: [address] [id number] Judicial Law Clerk: Scott Garcia PhD, Phone: [phone] Performed By: #### L 3100.3450, M100.2200, L400.2010 ####[facility] [address] [place], [place], [address] Protein [Mass/Vol] 7.1 g/dL Normal 6.0-8.5 [facility] Comment on above: Performed By: #### L 3100.3450, M100.2200, L400.2010 ####[facility] [address] [place], [place], [address] Urine Cultureon 05-07-2024 URC Below infection leve l. Mixed Gram Positive Organisms Hepzibah Count 1000-10,000 MIXC Mixed contaminants. Submit a new specimen if indicated. Normal [facility] Comment on above: Performed By: #### L 3100.3450, M100.2200, L400.2010 ####[facility] [address] [place], [place], [address] Addendum DocumentOrdered By: Marilee Jiang on 05-05-2024 Protein Electrophoresis Note Comment . [facility] Comment on above: The SPE pattern appe ars unremarkable. Evidence ofmonoclonal protein is not apparent.Performed at: [facility] [address] [id number] Director: Scott Garcia PhD, Phone: [phone] Albumin Elph [Mass/Vol]Order ed By: Marilee Jiang on 05-05-2024 Albumin [Mass/Vol] 3.2 g/dL 2.9-4.4 [facility] Albumin/Globulin Elph [Mass ratio]Ordered By: Marilee Jiang on 05-05-2024 Albumin/Globulin (PEP) 0.8 0.7-1.7 [facility] Nymbn-5-sgudikbj measurement by protein electrophoresisOrdered By: Marilee Jiang on 05-05-2024 Ltzsn-8-Ewihakrfa 0.3 g/dL 0.0-0.4 [facility] Vntxm-1-onpxhdiq measurement by protein electrophoresisOrdered By: Marilee Jiang on 05-05-2024 Sdbql-0-Kitggtwww 0.9 g/dL 0.4-1.0 [facility] Beta globulin Elph [Mass/Vol ]Ordered By: Marilee Jiang on 05-05-2024 Beta Globulins 1.2 g/dL 0.7-1.3 [facility] Bilirubin Test strip Ql (U)O rdered By: Marilee Jiang on 05-05-2024 Bilirubin Ql (U) Negative Negative [facility] Gamma globulin measurement b y protein electrophoresisOrdered By: Marilee Jiang on 05-05-2024 Gamma Globulins 1.4 g/dL 0.4-1.8 [facility] Globulin (S) [Mass/Vol]Order ed By: Marilee Jiang on 05-05-2024 Globulin (PEP) 3.9 g/dL 2.2-3.9 [facility] Glucose Ql (U)Ordered By: Vashti Jiang on 05-05-2024 Glucose (U) [Mass/Vol] 100 mg/dL High Normal [facility] Ketones Test strip Ql (U)Ord ered By: Marilee Jiang on 05-05-2024 Ketones Ql (U) Negative Negative [facility] Nitrite Test strip Ql (U)Ord ered By: Marilee Jiang on 05-05-2024 Nitrite Ql (U) Negative Negative [facility] Protein Fractions Elph [Inte rp]Ordered By: Marilee Jiang on 05-05-2024 Protein Electrophoresis Interpret Comment . 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 Protein Test strip Ql (U)Ord ered By: Marilee Jiang on 05-05-2024 Protein Ql (U) 30 mg/dl High Negative [facility] Protein.monoclonal Elph [Mas s/Vol]Ordered By: Marilee Jiang on 05-05-2024 Protein Electrophoresis M-Sree Not Observed g/dL Not Observed [facility] Serum or plasma protein bhavani urement (mass/volume)Ordered By: Marilee Jiang on 05-05-2024 Protein [Mass/Vol] 7.1 g/dL 6.0-8.5 [facility] Urinalysis, Routine (Dipstic k)on 05-05-2024 BILIRUBIN URINE Negative Normal Negative [facility] Comment on above: Order Comment: COLOR OF URINE MAY AFFECT DIPSTICK RESULTS. CLEAN CATCH Performed By: #### L 3100.3450, M100.2200, L400.2010 #### [facility] [address] [place], [address] Clarity (U) Sl. Cloudy Normal Clear [facility] Comment on above: Order Comment: COLOR OF URINE MAY AFFECT DIPSTICK RESULTS. CLEAN CATCH Performed By: #### L 3100.3450, M100.2200, L400.2010 #### [facility] [address] [place], [address] Color (U) Mulu Normal Yellow [facility] Comment on above: Order Comment: COLOR OF URINE MAY AFFECT DIPSTICK RESULTS. CLEAN CATCH Performed By: #### L 3100.3450, M100.2200, L4 #### [facility] [address] [place], [address] GLUCOSE, UR 100 mg/dl Abnormal Normal [facility] Comment on above: Order Comment: COLOR OF URINE MAY AFFECT DIPSTICK RESULTS. CLEAN CATCH Performed By: #### L 3100.3450, M100.2200, L4 #### [facility] [address] [place], [address] KETONE UR Negative Normal Negative [facility] Comment on above: Order Comment: COLOR OF URINE MAY AFFECT DIPSTICK RESULTS. CLEAN CATCH Performed By: #### L 3100.3450, M100.2200, L400 #### [facility] [address] [place], [address] LEUK ESTERASE 25 /ul Abnormal Negative [facility] Comment on above: Order Comment: COLOR OF URINE MAY AFFECT DIPSTICK RESULTS. CLEAN CATCH Performed By: #### L 3100.3450, M100.2200, L400 #### [facility] [address] [place], [address] Nitrite Ql (U) Negative Normal Negative [facility] Comment on above: Order Comment: COLOR OF URINE MAY AFFECT DIPSTICK RESULTS. CLEAN CATCH Performed By: #### L 3100.3450, M100.2200, L400.2010 #### [facility] [address] [place], [address] OCCULT BLOOD-UR 250 /ul Abnormal Negative [facility] Comment on above: Order Comment: COLOR OF URINE MAY AFFECT DIPSTICK RESULTS. CLEAN CATCH Performed By: #### L 3100.3450, M100.2200, L400.2010 #### [facility] [address] [place], [address] pH UR 6.5 Normal 5.0 - 8.0 [facility] Comment on above: Order Comment: COLOR OF URINE MAY AFFECT DIPSTICK RESULTS. CLEAN CATCH Performed By: #### L 3100.3450, M100.2200, L4.2010 #### [facility] [address] [place], [address] PROT DIPSTX 30 mg/dl Abnormal Negative [facility] Comment on above: Order Comment: COLOR OF URINE MAY AFFECT DIPSTICK RESULTS. CLEAN CATCH Performed By: #### L 3100.3450, M100.2200, L400.2010 #### [facility] [address] [place], [address] SP.GR. DIPSTX 1.015 Normal 1.002-1.03 0 [facility] Comment on above: Order Comment: COLOR OF URINE MAY AFFECT DIPSTICK RESULTS. CLEAN CATCH Performed By: #### L 3100.3450, M100.2200, L400.2010 #### [facility] [address] [place], [address] UROBILI Normal Normal Normal [facility] Comment on above: Order Comment: COLOR OF URINE MAY AFFECT DIPSTICK RESULTS. CLEAN CATCH Performed By: #### L 3100.3450, M100.2200, L400.2010 #### [facility] [address] [place], [place], [address] Urine blood detectionOrdered By: Marilee Jiang on 05-05-2024 Urine Occult Blood 250 /ul High Negative [facility] Urine clarityOrdered By: Yanique Jiagn on 05-05-2024 Clarity (U) Sl. Cloudy Clear [facility] Urine color determinationOrd ered By: Marilee Jiang on 05-05-2024 Color (U) Mulu Yellow [facility] Urine cultureOrdered By: Yanique Jiang on 05-05-2024 Bacteria identified Cx Nom (U) Positive Abnormal [facility] Urine leukocyte esterase det ection by dipstickOrdered By: Marilee Jiang on 05-05-2024 Leukocyte esterase Test strip Ql (U) 25 /ul High Negative [facility] Urine pHOrdered By: Marilee cruz on 05-05-2024 pH (U) 6.5 [pH] 5.0 - 8.0 [facility] Urine specific gravity measu rementOrdered By: Marilee Jiang on 05-05-2024 Specific gravity (U) [Rel density] 1.015 1.002-1.03 0 [facility] Urobilinogen Ql (U)Ordered B y: Marilee Jiang on 05-05-2024 Urine Urobilinogen Normal mg/dl Normal [facility] Protein Electroph, Son 04-30 Albumin [Mass/Vol] 3.1 g/dL Normal 2.9-4.4 [facility] Comment on above: Order Comment: ADD O N BLOOD FROM 04/24/24 PER Performed By: #### L 509.1000, L3100.3450, L506.1000, L3410.9999, L3300.0960 #### [facility] [address] [facility] [place], [place], [address] Albumin/Globulin [Mass ratio] 0.8 {ratio} Normal 0.7-1.7 [facility] Comment on above: Order Comment: ADD O N BLOOD FROM 04/24/24 PER Performed By: #### L 509.1000, L3100.3450, L506.1000, L3410.9999, L3300.0960 #### [facility] [address] [place], [address] ALPHA-1 GLOBUL 0.3 g/dL Normal 0.0-0.4 [facility] Comment on above: Order Comment: ADD O N BLOOD FROM 04/24/24 PER Performed By: #### L 509.1000, L3100.3450, L506.1000, L3410.9999, L3300.0960 #### [facility] [address] [place], [address] ALPHA-2 GLOBUL 1.0 g/dL Normal 0.4-1.0 [facility] Comment on above: Order Comment: ADD O N BLOOD FROM 04/24/24 PER Performed By: #### L 509.1000, L3100.3450, L506.1000, L3410.9999, L3300.0960 #### [facility] [address] [place], [address] BETA GLOBULIN 1.2 g/dL Normal 0.7-1.3 [facility] Comment on above: Order Comment: ADD O N BLOOD FROM 04/24/24 PER Performed By: #### L 509.1000, L3100.3450, L506.1000, L3410.9999, L3300.0960 #### [facility] [address] [place], [address] GAMMA GLOBULIN 1.5 g/dL Normal 0.4-1.8 [facility] Comment on above: Order Comment: ADD O N BLOOD FROM 04/24/24 PER Performed By: #### L 509.1000, L3100.3450, L506.1000, L3410.9999, L3300.0960 #### [facility] [address] [place], [address] Globulin (S) [Mass/Vol] 4.0 g/dL High 2.2-3.9 [facility] Comment on above: Order Comment: ADD O N BLOOD FROM 04/24/24 PER Performed By: #### L 509.1000, L3100.3450, L506.1000, L3410.9999, L3300.0960 #### [facility] [address] [place], [place], [address] INTERPRETATION Comment Normal . [facility] Comment on above: Order Comment: ADD O N BLOOD FROM 04/24/24 PER Result Comment: Prot ein electrophoresis scan will follow via computer, mail, or relief map modeler delivery. Performed By: #### L 509.1000, L3100.3450, L506.1000, L3410.9999, L3300.0960 #### [facility] [address] [place], [place], [address] M-SPIKE Not Observed Normal Not Observed [facility] Comment on above: Order Comment: ADD O N BLOOD FROM 04/24/24 PER Performed By: #### L 509.1000, L3100.3450, L506.1000, L3410.9999, L3300.0960 #### [facility] [address] [place], [place], [address] NOTE: Comment Normal . [facility] Comment on above: Order Comment: ADD O N BLOOD FROM 04/24/24 PER Result Comment: The SPE pattern appears unremarkable. Evidence of monoclonal protein is not apparent. Performed at: [address] [id number] Judicial Law Clerk: Scott Garcia PhD, Phone: [phone] Performed By: #### L 509.1000, L3100.3450, L506.1000, L3410.9999, L3300.0960 #### [facility] [address] [place], [place], [address] Protein [Mass/Vol] 7.1 g/dL Normal 6.0-8.5 [facility] Comment on above: Order Comment: ADD O N BLOOD FROM 04/24/24 PER Performed By: #### L 509.1000, L3100.3450, L506.1000, L3410.9999, L3300.0960 #### [facility] [address] [place], [address] L3410.9999on 04-28-2024 [facility] [place] COMMENT Normal . [facility] Comment on above: Order Comment: PTH-N O TRESYLOL ADDED 881988 PTH RELATED PEPTIDE FZ Result Comment: Test Ordered: 331525 PTHrP (PTH-Related Peptide) PTHrP (PTH-Related Peptide) <2.0 pmol/L ES Reference Range: . This test was developed and its performance characteristics determined by [employer]. It has not been cleared or approved [...] discordant, please contact the laboratory. Performed at: [facility] [address] [place] [id number] Judicial Law Clerk: Larry Vicente MD, Phone: [phone] Performed at: [address] [id number] Judicial Law Clerk: Scott Garcia PhD, Phone: [phone] Performed By: #### L 509.1000, L3100.3450, L506.1000, L3410.9999, L3300.0960 #### [facility] [address] [place], [address] Vitamin D 1,25-Dihydroxyon 0 04-27-2024 VIT D 1,25 DIHY 93.6 pg/mL Abnormal 24.8-81.5 [facility] Comment on above: Result Comment: Perf ormed at: [facility] [address] [id number] Judicial Law Clerk: Saran Huynh MD, Phone: [phone] Performed By: #### L 509.1000, L3100.3450, L506.1000, L3410.9999, L3300.2323 #### [facility] [address] [place], [address] 1,25-dihydroxyvitamin D3 [Ma ss/Vol]Ordered By: Marilee Jiang on 04-24-2024 Vitamin D 1,25-Dihydroxy 93.6 pg/mL High 24.8-81.5 [facility] Comment on above: Performed at: [facility] [address] [id number] Director: Saran Huynh MD, Phone: [phone] 53-IU-Aurepol DOrdered By: Eleuterio Jiang on 04-24-2024 Vitamin D 25-Hydroxy 74.5 ng/mL [facility] Comment on above: Vitamin D 25(OH) Sta tus Range Deficiency <20 ng/mL (50nmol/L) Insufficiency 20 - 30 ng/mL (50 - 75 nmol/L) Sufficiency 30 - 100 ng/mL (75 - 250 nmol/L) Toxicity >100 ng/mL (>250 nmol/L) Addendum DocumentOrdered By: Marilee Jiang on 04-24-2024 Protein Electrophoresis Note Comment . [facility] Comment on above: The SPE pattern appe ars unremarkable. Evidence ofmonoclonal protein is not apparent.Performed at: - [address] [id number] Director: Scott Garcia PhD, Phone: [phone] Albumin Elph [Mass/Vol]Order ed By: Marilee Jiang on 04-24-2024 Albumin [Mass/Vol] 3.1 g/dL 2.9-4.4 [facility] Albumin/Globulin Elph [Mass ratio]Ordered By: Marilee Jiang on 04-24-2024 Albumin/Globulin (PEP) 0.8 0.7-1.7 [facility] Yqxwh-3-faogcqrg measurement by protein electrophoresisOrdered By: Marilee Jiang on 04-24-2024 Ktcxb-5-Djbxahnmg 0.3 g/dL 0.0-0.4 [facility] Kihfn-1-ausrrtxr measurement by protein electrophoresisOrdered By: Marilee Jiang on 04-24-2024 Wyqnm-5-Orjqgxzrs 1.0 g/dL 0.4-1.0 [facility] Beta globulin Elph [Mass/Vol ]Ordered By: Marilee Jiang on 04-24-2024 Beta Globulins 1.2 g/dL 0.7-1.3 [facility] Calcium ionizedOrdered By: Eleuterio Jiang on 04-24-2024 Ionized Calcium 1.42 mmol/L High 1.09-1.30 [facility] Gamma globulin measurement b y protein electrophoresisOrdered By: Marilee Jiang on 04-24-2024 Gamma Globulins 1.5 g/dL 0.4-1.8 [facility] Globulin (S) [Mass/Vol]Order ed By: Marilee Jiang on 04-24-2024 Globulin (PEP) 4.0 g/dL High 2.2-3.9 [facility] Intact parathyroid hormone ( iPTH) measurementOrdered By: Marilee Jiang on 04-24-2024 Parathyroid Hormone (Intact) 7.9 pg/mL Low 18.4-80.1 [facility] L501.2276on 04-24-2024 Ionized Calcium 1.42 mmol/L High 1.09-1.30 [facility] Comment on above: Performed By: #### L 501.2276 ####[facility] [address] [place], [address] No Panel InformationOrdered By: Marilee Jiang on 04-24-2024 Miscellaneous Test COMMENT . [facility] Comment on above: Test Ordered: 063312 PTHrP (PTH-Related Peptide)PTHrP (PTH-Related Peptide) <2.0 pmol/L ES Reference Range: .This test was developed and its performance characteristicsdetermined by [employer]. It has not been cleared or approvedby the Food and Drug Administration.Reference Range:All Ages: <2.0The PTHrP assay should not be used to exclude cancer orscreen tumor patients for humoral hypercalcemia ofmalignancy (HHM). The results should always be assessed inconjunction with the patient's medical history, clinicalexamination, and other findings. If test results areclinically discordant, please contact the laboratory.Performed at: ES - [facility] [address] [place], [place] [id number] Director: Larry Vicente MD, Phone: [phone] at: - [facility] [address] [place], [place] [id number] Director: Scott Garcia PhD, Phone: [phone] PTHINon 04-24-2024 PTH 7.9 pg/mL Low 18.4-80.1 [facility] Comment on above: Performed By: #### L 509.1000, L3100.3450, L506.1000, L3410.9999, L3300.0960 #### [facility] [address] [place], [address] Protein Fractions Elph [Inte rp]Ordered By: Marilee Jiang on 04-24-2024 Protein Electrophoresis Interpret Comment . 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 Protein.monoclonal Elph [Mas s/Vol]Ordered By: Marilee Jiang on 04-24-2024 Protein Electrophoresis M-Sree Not Observed g/dL Not Observed [facility] Serum or plasma protein bhavani urement (mass/volume)Ordered By: Marilee Jiang on 04-24-2024 Protein [Mass/Vol] 7.1 g/dL 6.0-8.5 [facility] Vitamin D,25 Hydroxyon 04-24 Vitamin D 25-OH 74.5 ng/mL Normal [facility] Comment on above: Result Comment: Cristina min D 25(OH) Status Range Deficiency <20 ng/mL (50nmol/L) Insufficiency 20 - 30 ng/mL (50 - 75 nmol/L) Sufficiency 30 - 100 ng/mL (75 - 250 nmol/L) Toxicity >100 ng/mL (>250 nmol/L) Performed By: #### L 509.1000, L3100.3450, L506.1000, L3410.9999, L3300.0960 #### [facility] [address] [place], [address] Absolute neutrophil countOrd ered By: Marilee Jiang on 04-21-2024 Neutrophils (Bld) [#/Vol] 4.3 10*3/uL 2.0-7.7 [facility] Albumin to globulin ratioOrd ered By: Marilee Jiang on 04-21-2024 Albumin/Globulin [Mass ratio] 0.7 {ratio} Low 0.9-2.4 [facility] Basophil percentageOrdered B y: Marilee Jiang on 04-21-2024 Basophils/100 WBC (Bld) 0.8 % 0-1 [facility] Bilirubin, totalOrdered By: Marilee Jiang on 04-21-2024 Bilirubin [Mass/Vol] 0.50 mg/dL 0.20-1.00 [facility] Comment on above: For patients on eltr ombopag therapy, use of Dimension [place] TBIL is not recommended. Blood urea nitrogen (BUN)/cr eatinine ratioOrdered By: Marilee Jiang on 04-21-2024 Urea nitrogen/Creatinine [Mass ratio] 19.1 mg/mg 10-20 [facility] CBC W/Diff, Automatedon - Absolute Lymph 2.24 X10 3/uL Normal 0.83-4.51 [facility] Comment on above: Performed By: #### L 503.6550, L100.0100, L500.4050, L501.2450, L503.6150 ####[facility] [address] [place], [address] Absolute Neut 4.3 X10 3/uL Normal 2.0-7.7 [facility] Comment on above: Performed By: #### L 503.6550, L100.0100, L500.4050, L501.2450, L503.6150 ####[facility] [address] [place], [address] Basophils/100 WBC (Bld) 0.8 % Normal 0-1 [facility] Comment on above: Performed By: #### L 503.6550, L100.0100, L500.4050, L501.2450, L503.6150 ####[facility] [address] [place], [address] Eosinophils/100 WBC (Bld) 3.4 % Normal 0-5 [facility] Comment on above: Performed By: #### L 503.6550, L100.0100, L500.4050, L501.2450, L503.6150 ####[facility] [address] [place], [address] Erythrocyte distribution width (RBC) [Ratio] 17.0 % High 11.6-14.6 [facility] Comment on above: Performed By: #### L 503.6550, L100.0100, L500.4050, L501.2450, L503.6150 ####[facility] [address] [place], [address] Hematocrit (Bld) [Volume fraction] 36.7 % Low 37-47 [facility] Comment on above: Performed By: #### L 503.6550, L100.0100, L500.4050, L501.2450, L503.6150 ####[facility] [address] [place], [address] Hemoglobin (Bld) [Mass/Vol] 11.3 g/dL Low 12.0-15.0 [facility] Comment on above: Performed By: #### L 503.6550, L100.0100, L500.4050, L501.2450, L503.6150 ####[facility] [address] [place], [address] IG% 0.500 Normal 0.0-0.9 [facility] Comment on above: Result Comment: IG% - Immature Granulocytes (promyelocytes, myelocytes and metamyelocytes) > 1% indicates that a LEFT SHIFT is Present. Performed By: #### L 503.6550, L100.0100, L500.4050, L501.2450, L503.6150 ####[facility] [address] [place], [address] Lymphocytes/100 WBC (Bld) 28.6 % Normal 19-41 [facility] Comment on above: Performed By: #### L 503.6550, L100.0100, L500.4050, L501.2450, L503.6150 ####[facility] [address] [place], [address] MCH (RBC) [Entitic mass] 24.5 pg Low 27.0-32.0 [facility] Comment on above: Performed By: #### L 503.6550, L100.0100, L500.4050, L501.2450, L503.6150 ####[facility] [address] [place], [address] MCHC (RBC) [Mass/Vol] 30.8 g/dL Low 32-36 [facility] Comment on above: Performed By: #### L 503.6550, L100.0100, L500.4050, L501.2450, L503.6150 ####[facility] [address] [place], [address] MCV (RBC) [Entitic vol] 79.6 fL Low 81-99 [facility] Comment on above: Performed By: #### L 503.6550, L100.0100, L500.4050, L501.2450, L503.6150 ####[facility] [address] [place], [address] Monocytes/100 WBC (Bld) 11.4 % High 0-10 [facility] Comment on above: Performed By: #### L 503.6550, L100.0100, L500.4050, L501.2450, L503.6150 ####[facility] [address] [place], [address] Neutrophils/100 WBC (Bld) 55.3 % Normal 47-70 [facility] Comment on above: Performed By: #### L 503.6550, L100.0100, L500.4050, L501.2450, L503.6150 ####[facility] [address] [place], [address] Nucleated RBC (Bld) [#/Vol] 0 10*3/uL Normal 0-5 [facility] Comment on above: Performed By: #### L 503.6550, L100.0100, L500.4050, L501.2450, L503.6150 ####[facility] [address] [place], [address] Platelet mean volume (Bld) [Entitic vol] 8.9 fL Normal 6.2-12.0 [facility] Comment on above: Performed By: #### L 503.6550, L100.0100, L500.4050, L501.2450, L503.6150 ####[facility] [address] [place], [address] Platelets (Bld) [#/Vol] 420 10*3/uL Normal 150-450 [facility] Comment on above: Performed By: #### L 503.6550, L100.0100, L500.4050, L501.2450, L503.6150 ####[facility] [address] [place], [address] RBC (Bld) [#/Vol] 4.61 10*6/uL Normal 4.2-5.4 [facility] Comment on above: Performed By: #### L 503.6550, L100.0100, L500.4050, L501.2450, L503.6150 ####[facility] [address] [place], [address] RDW SD 49.0 fl High 35.1-43.9 [facility] Comment on above: Performed By: #### L 503.6550, L100.0100, L500.4050, L501.2450, L503.6150 ####[facility] [address] [place], [address] WBC (Bld) [#/Vol] 7.8 10*3/uL Normal 4.4-11.0 [facility] Comment on above: Performed By: #### L 503.6550, L100.0100, L500.4050, L501.2450, L503.6150 ####[facility] [address] [place], [address] Carbon dioxide measurementOr dered By: Marilee Jiang on 04-21-2024 CO2 [Moles/Vol] 29.0 mmol/L 21.0-32.0 [facility] Chloride measurementOrdered By: Marilee Jiang on 04-21-2024 Chloride [Moles/Vol] 99 mmol/L 98-107 [facility] Comprehensive Metabolic Prof ilon 04-21-2024 Albumin [Mass/Vol] 3.3 g/dL Normal 3.2-5.0 [facility] Comment on above: Performed By: #### L 503.6550, L100.0100, L500.4050, L501.2450, L503.6150 ####[facility] [address] [place], [address] Albumin/Globulin [Mass ratio] 0.7 {ratio} Low 0.9-2.4 [facility] Comment on above: Performed By: #### L 503.6550, L100.0100, L500.4050, L501.2450, L503.6150 ####[facility] [address] [place], [address] ALK P 62 U/L Normal 45-117 [facility] Comment on above: Performed By: #### L 503.6550, L100.0100, L500.4050, L501.2450, L503.6150 ####[facility] [address] [place], [address] ALT [Catalytic activity/Vol] 22 U/L Normal 13-56 [facility] Comment on above: Performed By: #### L 503.6550, L100.0100, L500.4050, L501.2450, L503.6150 ####[facility] [address] [place], [address] AST [Catalytic activity/Vol] 27 U/L Normal 15-37 [facility] Comment on above: Performed By: #### L 503.6550, L100.0100, L500.4050, L501.2450, L503.6150 ####[facility] [address] [place], [address] Bilirubin [Mass/Vol] 0.50 mg/dL Normal 0.20-1.00 [facility] Comment on above: Result Comment: For patients on eltrombopag therapy, use of Dimension [place] TBIL is not recommended. Performed By: #### L 503.6550, L100.0100, L500.4050, L501.2450, L503.6150 ####[facility] [address] [place], [address] BUN/CRE 19.1 RATIO Normal 10-20 [facility] Comment on above: Performed By: #### L 503.6550, L100.0100, L500.4050, L501.2450, L503.6150 ####[facility] [address] [place], [address] CA,Total 10.6 mg/dL High 8.5-10.1 [facility] Comment on above: Performed By: #### L 503.6550, L100.0100, L500.4050, L501.2450, L503.6150 ####[facility] [address] [place], [address] Chloride [Moles/Vol] 99 mmol/L Normal 98-107 [facility] Comment on above: Performed By: #### L 503.6550, L100.0100, L500.4050, L501.2450, L503.6150 ####[facility] [address] [place], [address] CO2 [Moles/Vol] 29.0 mmol/L Normal 21.0-32.0 [facility] Comment on above: Performed By: #### L 503.6550, L100.0100, L500.4050, L501.2450, L503.6150 ####[facility] [address] [place], [address] Creatinine [Mass/Vol] 0.63 mg/dL Normal 0.55-1.02 [facility] Comment on above: Result Comment: The validity of the calculated GFR GFRAA in patients over 70 years has not been determined. Clinical correlation is essential. Performed By: #### L 503.6550, L100.0100, L500.4050, L501.2450, L503.6150 ####[facility] [address] [place], [address] EST GFR - AA 116 mL/min Normal >60 [facility] Comment on above: Result Comment: Afri can Stateless GFR Calc Performed By: #### L 503.6550, L100.0100, L500.4050, L501.2450, L503.6150 ####[facility] [address] [place], [address] GAP 8 Normal 5-15 [facility] Comment on above: Performed By: #### L 503.6550, L100.0100, L500.4050, L501.2450, L503.6150 ####[facility] [address] [place], [address] GFR/1.73 sq M.predicted among non-blacks MDRD (S/P/Bld) [Vol rate/Area] 96 mL/min/{1.73_m2} Normal >60 [facility] Comment on above: Result Comment: Non- GFR Calc Performed By: #### L 503.6550, L100.0100, L500.4050, L501.2450, L503.6150 ####[facility] [address] [place], [address] Globulin (S) [Mass/Vol] 5.0 g/dL High 2.2-4.2 [facility] Comment on above: Performed By: #### L 503.6550, L100.0100, L500.4050, L501.2450, L503.6150 ####[facility] [address] [place], [address] Glucose [Mass/Vol] 101 mg/dL Normal 74-106 [facility] Comment on above: Result Comment: Fast ing Glucose result from 100 to 125 mg/dL suggests IMPAIRED HOMEOSTASIS per A.D.A. criteria. Performed By: #### L 503.6550, L100.0100, L500.4050, L501.2450, L503.6150 ####[facility] [address] [place], [address] Potassium [Moles/Vol] 3.8 mmol/L Normal 3.5-5.1 [facility] Comment on above: Performed By: #### L 503.6550, L100.0100, L500.4050, L501.2450, L503.6150 ####[facility] [address] [place], [address] Sodium [Moles/Vol] 136 mmol/L Normal 136-145 [facility] Comment on above: Performed By: #### L 503.6550, L100.0100, L500.4050, L501.2450, L503.6150 ####[facility] [address] [place], [address] T PROT 8.3 g/dL High 6.4-8.2 [facility] Comment on above: Performed By: #### L 503.6550, L100.0100, L500.4050, L501.2450, L503.6150 ####[facility] [address] [place], [address] Urea nitrogen [Mass/Vol] 12 mg/dL Normal 7-18 [facility] Comment on above: Performed By: #### L 503.6550, L100.0100, L500.4050, L501.2450, L503.6150 ####[facility] [address] [place], [place], [address] Eosinophil percentageOrdered By: Marilee Jiang on 04-21-2024 Eosinophils/100 WBC (Bld) 3.4 % 0-5 [facility] Erythrocyte distribution wid th ratioOrdered By: Marilee Jiang on 04-21-2024 Erythrocyte distribution width (RBC) [Ratio] 17.0 % High 11.6-14.6 [facility] Erythrocyte distribution wid th standard deviationOrdered By: Marilee Jiang on 04-21-2024 Erythrocyte distribution width (RBC) [Entitic vol] 49.0 fL High 35.1-43.9 [facility] Estimated glomerular filtrat ion rate (GFR) AmericanOrdered By: Marilee Jiang on 04-21-2024 Estimated GFR (MDRD) Amer 116 mL/min >60 [facility] Comment on above: GFR Calc Ferritinon 04-21-2024 Ferritin [Mass/Vol] 28 ng/mL Normal 8-252 [facility] Comment on above: Performed By: #### L 503.6550, L100.0100, L500.4050, L501.2450, L503.6150 ####[facility] [address] [place], [place], [address] Ferritin measurementOrdered By: Marilee Jiang on 04-21-2024 Ferritin [Mass/Vol] 28 ng/mL 8-252 [facility] Glomerular filtration rate ( GFR) estimationOrdered By: Marilee Jiang on 04-21-2024 Estimated GFR (MDRD) Non-Af Amer 96 mL/min >60 [facility] Comment on above: Non- GFR Calc Glucose measurementOrdered B y: Marilee Jiang on 04-21-2024 Glucose [Mass/Vol] 101 mg/dL 74-106 [facility] Comment on above: Fasting Glucose resu lt from 100 to 125 mg/dL suggests IMPAIRED HOMEOSTASIS per A.D.A. criteria. Hematocrit Auto (Bld) [Volum e fraction]Ordered By: Marilee Jiang on 04-21-2024 Hematocrit (Bld) [Volume fraction] 36.7 % Low 37-47 [facility] Hemoglobin measurementOrdere d By: Marilee Jiang on 04-21-2024 Hemoglobin (Bld) [Mass/Vol] 11.3 g/dL Low 12.0-15.0 [facility] Immature granulocytes/100 WB C Auto (Bld)Ordered By: Marilee Jiang on 04-21-2024 Immature granulocytes/100 WBC (Bld) 0.500 % 0.0-0.9 [facility] Comment on above: IG% - Immature Granu locytes (promyelocytes, myelocytes and metamyelocytes) > 1% indicates that a LEFT SHIFT is Present. Ironon 04-21-2024 Iron [Mass/Vol] 31 ug/dL Low 50-170 [facility] Comment on above: Performed By: #### L 503.6550, L100.0100, L500.4050, L501.2450, L503.6150 ####[facility] [address] [place], [place], [id number] Iron (Unsp spec) [Mass/Mass] Ordered By: Marilee Jiang on 04-21-2024 Iron [Mass/Vol] 31 ug/dL Low 50-170 [facility] Laboratory - Chemistry and C hemistry - challengeOrdered By: Marilee Jiang on 04-21-2024 AST [Catalytic activity/Vol] 27 U/L 15-37 [facility] Lipaseon 04-21-2024 Lipase [Catalytic activity/Vol] 28 U/L Normal 13-75 [facility] Comment on above: Result Comment: Galindo brooks note: LIPASE revised reference range effective 22. New Lipase methodology. Expected to produce lower values than the previous assay method. NEW Reference Range: 13 - 75 U/L Performed By: #### L 503.6550, L100.0100, L500.4050, L501.2450, L503.6150 ####[facility] [address] [place], [address] Lipase measurementOrdered By : Marilee Jiang on 04-21-2024 Lipase [Catalytic activity/Vol] 28 U/L 13- [facility] Comment on above: Please note:LIPASE r evised reference range effective 22. New Lipase methodology. Expected to produce lower values than the previous assay method. NEW Reference Range: 13 - 75 U/L Lymphocytes Auto (Unsp spec) [#/Vol]Ordered By: Marilee Jiang on 04-21-2024 Lymphocytes (Bld) [#/Vol] 2.24 10*3/uL 0.83-4.51 [facility] Lymphocytes/100 WBC Auto (Un sp spec)Ordered By: Marilee Jiang on 04-21-2024 Lymphocytes/100 WBC (Bld) 28.6 % 19-41 [facility] MCV (mean corpuscular volume ) determinationOrdered By: Marilee Jiang on 04-21-2024 MCV (RBC) [Entitic vol] 79.6 fL Low 81-99 [facility] Mean corpuscular hemoglobin (MCH) determinationOrdered By: Marilee Jiang on 04-21-2024 MCH (RBC) [Entitic mass] 24.5 pg Low 27.0-32.0 [facility] Mean corpuscular hemoglobin concentration (MCHC) determinationOrdered By: Marilee Jiang on 04-21-2024 MCHC (RBC) [Mass/Vol] 30.8 g/dL Low 32-36 [facility] Mean platelet volume determi nationOrdered By: Marilee Jiang on 04-21-2024 Platelet mean volume (Bld) [Entitic vol] 8.9 fL 6.2-12.0 [facility] Monocyte percentageOrdered B y: Marilee Jiang on 04-21-2024 Monocytes/100 WBC (Bld) 11.4 % High 0-10 [facility] Neutrophil percentageOrdered By: Marilee Jiang on 04-21-2024 Neutrophils/100 WBC (Bld) 55.3 % 47-70 [facility] Nucleated red blood cell per centageOrdered By: Marilee Jiang on 04-21-2024 Nucleated RBC/100 WBC (Bld) [Ratio] 0 % 0-5 [facility] Platelet countOrdered By: Vashti Jiang on 04-21-2024 Platelets (Bld) [#/Vol] 420 10*3/uL 150-450 [facility] Potassium measurementOrdered By: Marilee Jiang on 04-21-2024 Potassium [Moles/Vol] 3.8 mmol/L 3.5-5.1 [facility] RBC Auto (Bld) [#/Vol]Ordere d By: Marilee Jiang on 04-21-2024 RBC (Bld) [#/Vol] 4.61 10*6/uL 4.2-5.4 [facility] Serum anion gap measurementO rdered By: Marilee Jiang on 04-21-2024 Anion gap [Moles/Vol] 8 mmol/L 5-15 [facility] Serum globulin measurementOr dered By: Marilee Jiang on 04-21-2024 Globulin (S) [Mass/Vol] 5.0 g/dL High 2.2-4.2 [facility] Serum or plasma alanine woodard otransferase (ALT) measurementOrdered By: Marilee Jiang on 04-21-2024 ALT [Catalytic activity/Vol] 22 U/L 13-56 [facility] Serum or plasma albumin bhavani urement (mass/volume)Ordered By: Marilee Jiang on 04-21-2024 Albumin [Mass/Vol] 3.3 g/dL 3.2-5.0 [facility] Serum or plasma alkaline keenan sphatase measurementOrdered By: Marilee Jiang on 04-21-2024 ALP [Catalytic activity/Vol] 62 U/L 45-117 [facility] Serum or plasma calcium bhavani urement (mass/volume)Ordered By: Marilee Jiang on 04-21-2024 Calcium [Mass/Vol] 10.6 mg/dL High 8.5-10.1 [facility] Serum or plasma creatinine m easurement (mass/volume)Ordered By: Marilee Jiang on 04-21-2024 Creatinine [Mass/Vol] 0.63 mg/dL 0.55-1.02 [facility] Comment on above: The validity of the calculated GFR & GFRAA in patients over 70 years has not been determined. Clinical correlation is essential. Serum or plasma urea nitroge n measurement (mass/volume)Ordered By: Marilee Jiang on 04-21-2024 Urea nitrogen [Mass/Vol] 12 mg/dL 7-18 [facility] Sodium levelOrdered By: Marilee Jiang on 04-21-2024 Sodium [Moles/Vol] 136 mmol/L 136-145 [facility] Total proteinOrdered By: Yanique Jiang on 04-21-2024 Protein [Mass/Vol] 8.3 g/dL High 6.4-8.2 [facility] White blood cell (WBC) count Ordered By: Marilee Jiang on 04-21-2024 WBC (Bld) [#/Vol] 7.8 10*3/uL 4.4-11.0 [facility] SCRN MAMM (CAD)W/DIONICIO BILATo n 04-15-2024 SCRN MAMM (CAD)W/DIONICIO BILAT [facility] Imaging Services [address] [place], [place] [id number] SCRN MAMM (CAD)W/DIONICIO BILAT MR#: [id number] Acct: [id number] Name: LAZARA SHANE Rep #: [id number] : 1940 F 83 From: Raoul Venegas MD PCP: Dr. Marilee Jiang, DO Status: REG CLI Study: SCRN MAMM (CAD)W/DIONICIO BILAT Date of Exam: 03/24 08/14 Exam# [id number] Ordering Dr: Marilee Jiang DO [id number] MAMMOGRAPHY - BILATERAL SCREENING 3-D TOMOSYNTHESIS REASON [...] EST , CC: Dr. 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 criteria. Potassium [Moles/Vol] 4.5 mmol/L 3.5-5.1 [facility] Sodium [Moles/Vol] 133 mmol/L 136-145 [facility] Laboratory - Chemistry and C hemistry - challengeOrdered By: Gem Gamboa on 06-18-2023 CO2 [Moles/Vol] 26.0 mmol/L 21.0-32.0 [facility] Urea nitrogen/Creatinine [Mass ratio] 26.6 mg/mg 10-20 [facility] No Panel InformationOrdered By: Gem Gamboa on 06-18-2023 Estimated GFR (MDRD) Amer 107 mL/min >60 [facility] Comment on above: GFR Calc Estimated GFR (MDRD) Non-Af Amer 89 mL/min >60 [facility] Comment on above: Non- GFR Calc Serum or plasma calcium bhavani urement (mass/volume)Ordered By: eGm Gamboa on 06-18-2023 Calcium [Mass/Vol] 9.2 mg/dL 8.5-10.1 [facility] Serum or plasma creatinine m easurement (mass/volume)Ordered By: Gem Gamboa on 06-18-2023 Creatinine [Mass/Vol] 0.68 mg/dL 0.55-1.02 [facility] Comment on above: The validity of the calculated GFR & GFRAA in patients over 70 years has not been determined. Clinical correlation is essential. Serum or plasma urea nitroge n measurement (mass/volume)Ordered By: Gem Gamboa on 06-18-2023 Urea nitrogen [Mass/Vol] 18 mg/dL 7-18 [facility] Thin prep Papanicolaou smear with manual screeningOrdered By: Gem Gamboa on 06-18-2023 Thin prep Papanicolaou smear with manual screening 6 5-15 [facility] Absolute lymphocyte countOrd ered By: Marilee Jiang on 04-20-2023 Lymphocytes Auto (Unsp spec) [#/Vol] 2.37 10*3/uL 0.83-4.51 [facility] Basophil percentageOrdered B y: Marilee Jiang on 04-20-2023 Basophils/100 WBC (Bld) 0.7 % 0-1 [facility] Bilirubin [Mass/Vol] 0.30 mg/dL 0.20-1.00 [facility] Comment on above: For patients on eltr ombopag therapy, use of Dimension [place] TBIL is not recommended. Chloride [Moles/Vol] 107 mmol/L 98-107 [facility] Cholesterol [Mass/Vol] 119 mg/dL <200 [facility] Comment on above: <200 mg/dL Desirable 200-240 mg/dL Borderline >240 mg/dL High Risk Eosinophils/100 WBC (Bld) 2.0 % 0-5 [facility] Glucose [Mass/Vol] 147 mg/dL 74-106 [facility] Comment on above: Fasting Glucose resu lt greater than or equal to 126 mg/dL suggests DIABETES MELLITUS per A.D.A. criteria. Neutrophils (Bld) [#/Vol] 4.4 10*3/uL 2.0-7.7 [facility] Neutrophils/100 WBC (Bld) 58.9 % 47-70 [facility] Potassium [Moles/Vol] 4.1 mmol/L 3.5-5.1 [facility] Protein [Mass/Vol] 7.8 g/dL 6.4-8.2 [facility] Sodium [Moles/Vol] 140 mmol/L 136-145 [facility] Triglyceride [Mass/Vol] 78 mg/dL <199 [facility] Comment on above: The drugs N-Acetylcy steine and Metamizole may falsely depress this assay.Serum Triglycerides Reference Interval Normal <150 mg/dL Borderline high 150 - 199 mg/dL High 200 - 499 mg/dL Very High > or = 500 mg/dL WBC (Bld) [#/Vol] 7.5 10*3/uL 4.4-11.0 [facility] Blood erythrocytes count (nu mber/volume)Ordered By: Marilee Jiang on 04-20-2023 RBC (Bld) [#/Vol] 4.58 10*6/uL 4.2-5.4 [facility] Blood hemoglobin measurement (mass/volume)Ordered By: Marilee Jiang on 04-20-2023 Hemoglobin (Bld) [Mass/Vol] 12.6 g/dL 12.0-15.0 [facility] Blood lymphocytes/100 leukoc ytesOrdered By: Marilee Jiang on 04-20-2023 Lymphocytes/100 WBC (Bld) 31.6 % 19-41 [facility] Blood monocytes/100 leukocyt esOrdered By: Marilee Jiang on 04-20-2023 Monocytes/100 WBC (Bld) 6.3 % 0-10 [facility] Blood platelet mean volumeOr dered By: Marilee Jiang on 04-20-2023 Platelet mean volume (Bld) [Entitic vol] 9.3 fL 6.2-12.0 [facility] Determination of erythrocyte mean corpuscular volume (MCV)Ordered By: Marilee Jiang on 04-20-2023 MCV (RBC) [Entitic vol] 89.1 fL 81-99 [facility] Hematocrit Auto (Bld) [Volum e fraction]Ordered By: Marilee Jiang on 04-20-2023 Hematocrit (Bld) [Volume fraction] 40.8 % 37-47 [facility] Laboratory - Chemistry and C hemistry - challengeOrdered By: Marilee Jiang on 04-20-2023 ALP [Catalytic activity/Vol] 58 U/L 45-117 [facility] ALT [Catalytic activity/Vol] 20 U/L 13-56 [facility] CO2 [Moles/Vol] 29.0 mmol/L 21.0-32.0 [facility] Globulin (S) [Mass/Vol] 4.5 g/dL 2.2-4.2 [facility] Urea nitrogen/Creatinine [Mass ratio] 25.4 mg/mg 10-20 [facility] Laboratory - Hematology and Cell countsOrdered By: Marilee Jiang on 04-20-2023 Erythrocyte distribution width (RBC) [Entitic vol] 50.0 fL 35.1-43.9 [facility] Erythrocyte distribution width (RBC) [Ratio] 15.2 % 11.6-14.6 [facility] Immature granulocytes/100 WBC (Bld) 0.500 % 0.0-0.9 [facility] Comment on above: IG% - Immature Granu locytes (promyelocytes, myelocytes and metamyelocytes) > 1% indicates that a LEFT SHIFT is Present. MCH (RBC) [Entitic mass] 27.5 pg 27.0-32.0 [facility] Nucleated RBC/100 WBC (Bld) [Ratio] 0 % 0-5 [facility] Auto (RBC) [Mass/Vol]Or dered By: Marilee Jiang on 04-20-2023 MCHC (RBC) [Mass/Vol] 30.9 g/dL 32-36 [facility] No Panel InformationOrdered By: Marilee Jiang on 04-20-2023 Estimated GFR (MDRD) Amer 108 mL/min >60 [facility] Comment on above: GFR Calc Estimated GFR (MDRD) Non-Af Amer 90 mL/min >60 [facility] Comment on above: Non- GFR Calc Urine Microalbumin/Creatinine Ratio 37.3 mg/g CRE <30 [facility] Platelets bldOrdered By: Yanique Jiang on 04-20-2023 Platelets (Bld) [#/Vol] 329 10*3/uL 150-450 [facility] Serum or plasma albumin bhavani urement (mass/volume)Ordered By: Marilee Jiang on 04-20-2023 Albumin [Mass/Vol] 3.3 g/dL 3.2-5.0 [facility] Serum or plasma albumin/glob ulin mass ratioOrdered By: Marilee Jiang on 04-20-2023 Albumin/Globulin [Mass ratio] 0.7 {ratio} 0.9-2.4 [facility] Serum or plasma calcium bhavani urement (mass/volume)Ordered By: Marilee Jiang on 04-20-2023 Calcium [Mass/Vol] 8.9 mg/dL 8.5-10.1 [facility] Serum or plasma cholesterol in HDL measurement (mass/volume)Ordered By: Marilee Jiang on 04-20-2023 Cholesterol in HDL [Mass/Vol] 42 mg/dL >40 [facility] Comment on above: The drugs N-Acetylcy steine and Metamizole may falsely depress this assay. Reference Range HDL <40 mg/dL Low HDL Cholesterol HDL >or= 60 mg/dL High HDL Cholesterol Serum or plasma cholesterol in VLDL measurement (mass/volume)Ordered By: Marilee Jiang on 04-20-2023 Cholesterol in VLDL [Mass/Vol] 16 mg/dL 5-40 [facility] Serum or plasma creatinine m easurement (mass/volume)Ordered By: Marilee Jiang on 04-20-2023 Creatinine [Mass/Vol] 0.67 mg/dL 0.55-1.02 [facility] Comment on above: The validity of the calculated GFR & GFRAA in patients over 70 years has not been determined. Clinical correlation is essential. Serum or plasma low density lipoprotein (LDL) cholesterol measurement (mass/volume)Ordered By: Marilee Jiang on 04-20-2023 Cholesterol in LDL [Mass/Vol] 61 mg/dL 0-130 [facility] Serum or plasma urea nitroge n measurement (mass/volume)Ordered By: Marilee Jiang on 04-20-2023 Urea nitrogen [Mass/Vol] 17 mg/dL 7-18 [facility] Thin prep Papanicolaou smear with manual screeningOrdered By: Marilee Jiang on 04-20-2023 Thin prep Papanicolaou smear with manual screening 13 U/L 15-37 [facility] Thin prep Papanicolaou smear with manual screening 4 5-15 [facility] Thin prep Papanicolaou smear with manual screening 18.9 mg/L NO RANGE EST. [facility] Urine creatinine measurement (mass/volume)Ordered By: Marilee Jiang on 04-20-2023 Creatinine (U) [Mass/Vol] 50.70 mg/dL NO RANGE EST. [facility] Culture, urineOrdered By: Vashti Jiang on 01-18-2023 Bacteria identified Cx Nom (U) Pseudomonas aeruginosa [facility] Absolute lymphocyte countOrd ered By: Alcon Ramirez on 11-01-2022 Lymphocytes Auto (Unsp spec) [#/Vol] 3.45 10*3/uL 0.83-4.51 [facility] Basophil percentageOrdered B y: Alcon Ramirez on 11-01-2022 Basophils/100 WBC (Bld) 0.5 % 0-1 [facility] Eosinophils/100 WBC (Bld) 1.1 % 0-5 [facility] Neutrophils (Bld) [#/Vol] 6.8 10*3/uL 2.0-7.7 [facility] Neutrophils/100 WBC (Bld) 61.1 % 47-70 [facility] WBC (Bld) [#/Vol] 11.2 10*3/uL 4.4-11.0 [facility] Blood erythrocytes count (nu mber/volume)Ordered By: Alcon Ramirez on 11-01-2022 RBC (Bld) [#/Vol] 4.36 10*6/uL 4.2-5.4 [facility] Blood hemoglobin measurement (mass/volume)Ordered By: Alcon Ramirez on 11-01-2022 Hemoglobin (Bld) [Mass/Vol] 12.4 g/dL 12.0-15.0 [facility] Blood lymphocytes/100 leukoc ytesOrdered By: Alcon Ramirez on 11-01-2022 Lymphocytes/100 WBC (Bld) 30.9 % 19-41 [facility] Blood monocytes/100 leukocyt esOrdered By: Alcon Ramirez on 11-01-2022 Monocytes/100 WBC (Bld) 5.9 % 0-10 [facility] Blood platelet mean volumeOr dered By: Alcon Ramirez on 11-01-2022 Platelet mean volume (Bld) [Entitic vol] 9.3 fL 6.2-12.0 [facility] Determination of erythrocyte mean corpuscular volume (MCV)Ordered By: Alcon Ramirez on 11-01-2022 MCV (RBC) [Entitic vol] 90.4 fL 81-99 [facility] Erythrocyte sedimentation ra teOrdered By: Alcon Ramirez on 11-01-2022 ESR (Bld) [Velocity] 23 mm/h 0-30 [facility] Hematocrit Auto (Bld) [Volum e fraction]Ordered By: Alcon Ramirez on 11-01-2022 Hematocrit (Bld) [Volume fraction] 39.4 % 37-47 [facility] Laboratory - Hematology and Cell countsOrdered By: Alcon Ramirez on 11-01-2022 Erythrocyte distribution width (RBC) [Entitic vol] 50.5 fL 35.1-43.9 [facility] Erythrocyte distribution width (RBC) [Ratio] 15.1 % 11.6-14.6 [facility] Immature granulocytes/100 WBC (Bld) 0.500 % 0.0-0.9 [facility] Comment on above: IG% - Immature Granu locytes (promyelocytes, myelocytes and metamyelocytes) > 1% indicates that a LEFT SHIFT is Present. MCH (RBC) [Entitic mass] 28.4 pg 27.0-32.0 [facility] Nucleated RBC/100 WBC (Bld) [Ratio] 0 % 0-5 [facility] MCHC Auto (RBC) [Mass/Vol]Or dered By: Alcon Ramirez on 11-01-2022 MCHC (RBC) [Mass/Vol] 31.5 g/dL 32-36 [facility] Platelets bldOrdered By: Joey Ramirez on 11-01-2022 Platelets (Bld) [#/Vol] 324 10*3/uL 150-450 [facility] Serum or plasma C reactive p rotein measurement (mass/volume)Ordered By: Alcon Ramirez on 11-01-2022 CRP [Mass/Vol] 13.90 mg/L 0.0-3.0 [facility] Comment on above: C-Reactive Protein ( CRP) provides useful information for thediagnosis, therapy and monitoring of inflammatory processesand associated diseases. For the evaluation of Relative Riskfor Cardiovascular Disease, a High Sensitivity CRP (HSCRP)should be ordered. Basophil percentageOrdered B y: Marilee Jiang on 09-25-2022 Bilirubin [Mass/Vol] 0.30 mg/dL 0.20-1.00 [facility] Comment on above: For patients on eltr ombopag therapy, use of Dimension [place] TBIL is not recommended. Chloride [Moles/Vol] 106 mmol/L 98-107 [facility] Glucose [Mass/Vol] 86 mg/dL 74-106 [facility] Potassium [Moles/Vol] 4.3 mmol/L 3.5-5.1 [facility] Protein [Mass/Vol] 9.1 g/dL 6.4-8.2 [facility] Sodium [Moles/Vol] 138 mmol/L 136-145 [facility] Laboratory - Chemistry and C hemistry - challengeOrdered By: Marilee Jiang on 09-25-2022 ALP [Catalytic activity/Vol] 68 U/L 45-117 [facility] ALT [Catalytic activity/Vol] 24 U/L 13-56 [facility] CO2 [Moles/Vol] 31.0 mmol/L 21.0-32.0 [facility] Globulin (S) [Mass/Vol] 5.6 g/dL 2.2-4.2 [facility] Urea nitrogen/Creatinine [Mass ratio] 13.9 mg/mg 10-20 [facility] No Panel InformationOrdered By: Marilee Jiang on 09-25-2022 Estimated GFR (MDRD) Amer 63 mL/min >60 [facility] Comment on above: GFR Calc Estimated GFR (MDRD) Non-Af Amer 52 mL/min >60 [facility] Comment on above: Non- GFR Calc Serum or plasma albumin bhavani urement (mass/volume)Ordered By: Marilee Jiang on 09-25-2022 Albumin [Mass/Vol] 3.5 g/dL 3.2-5.0 [facility] Serum or plasma albumin/glob ulin mass ratioOrdered By: Marilee Jiang on 09-25-2022 Albumin/Globulin [Mass ratio] 0.6 {ratio} 0.9-2.4 [facility] Serum or plasma calcium bhavani urement (mass/volume)Ordered By: Marilee Jiang on 09-25-2022 Calcium [Mass/Vol] 9.1 mg/dL 8.5-10.1 [facility] Serum or plasma creatinine m easurement (mass/volume)Ordered By: Marilee Jiang on 09-25-2022 Creatinine [Mass/Vol] 1.08 mg/dL 0.55-1.02 [facility] Comment on above: The validity of the calculated GFR & GFRAA in patients over 70 years has not been determined. Clinical correlation is essential. Serum or plasma urea nitroge n measurement (mass/volume)Ordered By: Marilee Jiang on 09-25-2022 Urea nitrogen [Mass/Vol] 15 mg/dL 7-18 [facility] Thin prep Papanicolaou smear with manual screeningOrdered By: Marilee Jiang on 09-25-2022 Thin prep Papanicolaou smear with manual screening 24 U/L 15-37 [facility] Thin prep Papanicolaou smear with manual screening 1 5-15 [facility] Absolute lymphocyte countOrd ered By: Dr. Jiang on 04-20-2022 Lymphocytes Auto (Unsp spec) [#/Vol] 2.08 10*3/uL 0.83-4.51 [facility] Basophil percentageOrdered B y: Dr. Jiang on 04-20-2022 Basophils/100 WBC (Bld) 0.3 % 0-1 [facility] Bilirubin [Mass/Vol] 0.50 mg/dL 0.20-1.00 [facility] Comment on above: For patients on eltr ombopag therapy, use of Dimension [place] TBIL is not recommended. Chloride [Moles/Vol] 99 mmol/L 98-107 [facility] Eosinophils/100 WBC (Bld) 0.1 % 0-5 [facility] Glucose [Mass/Vol] 248 mg/dL 74-106 [facility] Comment on above: Glucose result great er than or equal to 200 mg/dLsuggests DIABETES MELLITUS per A.D.A. criteria. Neutrophils (Bld) [#/Vol] 11.8 10*3/uL 2.0-7.7 [facility] Neutrophils/100 WBC (Bld) 79.6 % 47-70 [facility] Potassium [Moles/Vol] 4.3 mmol/L 3.5-5.1 [facility] Protein [Mass/Vol] 8.6 g/dL 6.4-8.2 [facility] Sodium [Moles/Vol] 134 mmol/L 136-145 [facility] WBC (Bld) [#/Vol] 14.8 10*3/uL 4.4-11.0 [facility] Blood erythrocytes count (nu mber/volume)Ordered By: Dr. Jiang on 04-20-2022 RBC (Bld) [#/Vol] 5.04 10*6/uL 4.2-5.4 [facility] Blood hemoglobin measurement (mass/volume)Ordered By: Dr. Jiang on 04-20-2022 Hemoglobin (Bld) [Mass/Vol] 14.7 g/dL 12.0-15.0 [facility] Blood lymphocytes/100 leukoc ytesOrdered By: Dr. Jiang on 04-20-2022 Lymphocytes/100 WBC (Bld) 14.1 % 19-41 [facility] Blood monocytes/100 leukocyt esOrdered By: Dr. Jiang on 04-20-2022 Monocytes/100 WBC (Bld) 5.3 % 0-10 [facility] Blood platelet mean volumeOr dered By: Dr. Jiang on 04-20-2022 Platelet mean volume (Bld) [Entitic vol] 9.1 fL 6.2-12.0 [facility] Determination of erythrocyte mean corpuscular volume (MCV)Ordered By: Dr. Jiang on 04-20-2022 MCV (RBC) [Entitic vol] 86.5 fL 81-99 [facility] Hematocrit Auto (Bld) [Volum e fraction]Ordered By: Dr. Jiang on 04-20-2022 Hematocrit (Bld) [Volume fraction] 43.6 % 37-47 [facility] Laboratory - Chemistry and C hemistry - challengeOrdered By: Dr. Jiang on 04-20-2022 ALP [Catalytic activity/Vol] 57 U/L 45-117 [facility] ALT [Catalytic activity/Vol] 27 U/L 13-56 [facility] CO2 [Moles/Vol] 32.0 mmol/L 21.0-32.0 [facility] Globulin (S) [Mass/Vol] 5.2 g/dL 2.2-4.2 [facility] Lipase [Catalytic activity/Vol] 89 U/L 73-393 [facility] Urea nitrogen/Creatinine [Mass ratio] 20.7 mg/mg 10-20 [facility] Laboratory - Hematology and Cell countsOrdered By: Dr. Jiang on 04-20-2022 Erythrocyte distribution width (RBC) [Entitic vol] 46.4 fL 35.1-43.9 [facility] Erythrocyte distribution width (RBC) [Ratio] 14.6 % 11.6-14.6 [facility] Immature granulocytes/100 WBC (Bld) 0.600 % 0.0-0.9 [facility] Comment on above: IG% - Immature Granu locytes (promyelocytes, myelocytes and metamyelocytes) > 1% indicates that a LEFT SHIFT is Present. MCH (RBC) [Entitic mass] 29.2 pg 27.0-32.0 [facility] Nucleated RBC/100 WBC (Bld) [Ratio] 0 % 0-5 [facility] MCHC Auto (RBC) [Mass/Vol]Or dered By: Dr. Jiang on 04-20-2022 MCHC (RBC) [Mass/Vol] 33.7 g/dL 32-36 [facility] No Panel InformationOrdered By: Dr. Jiang on 04-20-2022 Estimated GFR (MDRD) Amer 92 mL/min >60 [facility] Comment on above: GFR Calc Estimated GFR (MDRD) Non-Af Amer 76 mL/min >60 [facility] Comment on above: Non- GFR Calc Platelets bldOrdered By: Dr. Jiang on 04-20-2022 Platelets (Bld) [#/Vol] 408 10*3/uL 150-450 [facility] Serum or plasma albumin bhavani urement (mass/volume)Ordered By: Dr. Jiang on 04-20-2022 Albumin [Mass/Vol] 3.4 g/dL 3.2-5.0 [facility] Serum or plasma albumin/glob ulin mass ratioOrdered By: Dr. Jiang on 04-20-2022 Albumin/Globulin [Mass ratio] 0.7 {ratio} 0.9-2.4 [facility] Serum or plasma calcium bhavani urement (mass/volume)Ordered By: Dr. Jiang on 04-20-2022 Calcium [Mass/Vol] 9.7 mg/dL 8.5-10.1 [facility] Serum or plasma creatinine m easurement (mass/volume)Ordered By: Dr. Jiang on 04-20-2022 Creatinine [Mass/Vol] 0.77 mg/dL 0.55-1.02 [facility] Comment on above: The validity of the calculated GFR & GFRAA in patients over 70 years has not been determined. Clinical correlation is essential. Serum or plasma urea nitroge n measurement (mass/volume)Ordered By: Dr. Jiang on 04-20-2022 Urea nitrogen [Mass/Vol] 16 mg/dL 7-18 [facility] Thin prep Papanicolaou smear with manual screeningOrdered By: Dr. Jiang on 04-20-2022 Thin prep Papanicolaou smear with manual screening 17 U/L 15-37 [facility] Thin prep Papanicolaou smear with manual screening 3 5-15 [facility] Basophil percentageOrdered B y: Dr. Bhatt on 03-22-2022 Chloride [Moles/Vol] 104 mmol/L 98-107 [facility] Glucose [Mass/Vol] 59 mg/dL 74-106 [facility] Potassium [Moles/Vol] 3.3 mmol/L 3.5-5.1 [facility] Sodium [Moles/Vol] 139 mmol/L 136-145 [facility] Glucose Glucometer (BldC) [M ass/Vol]Ordered By: Dr. Bhatt on 03-22-2022 Glucose [Mass/Vol] 107 mg/dL 74-106 [facility] Comment on above: MANAGEMENT OF PATIEN T CARE PER NURSING PROTOCOL Laboratory - Chemistry and C hemistry - challengeOrdered By: Dr. Bhatt on 03-22-2022 CO2 [Moles/Vol] 31.0 mmol/L 21.0-32.0 [facility] Urea nitrogen/Creatinine [Mass ratio] 28.2 mg/mg 10-20 [facility] No Panel InformationOrdered By: Dr. Bhatt on 03-22-2022 Estimated Creatinine Clearance Calc 35.49 ml/min [facility] Estimated GFR (MDRD) Amer 108 mL/min >60 [facility] Comment on above: GFR Calc Estimated GFR (MDRD) Non-Af Amer 89 mL/min >60 [facility] Comment on above: Non- GFR Calc Serum or plasma calcium bhavani urement (mass/volume)Ordered By: Dr. Bhatt on 03-22-2022 Calcium [Mass/Vol] 9.5 mg/dL 8.5-10.1 [facility] Serum or plasma creatinine m easurement (mass/volume)Ordered By: Dr. Bhatt on 03-22-2022 Creatinine [Mass/Vol] 0.67 mg/dL 0.55-1.02 [facility] Comment on above: The validity of the calculated GFR & GFRAA in patients over 70 years has not been determined. Clinical correlation is essential. Serum or plasma urea nitroge n measurement (mass/volume)Ordered By: Dr. Bhatt on 03-22-2022 Urea nitrogen [Mass/Vol] 19 mg/dL 7-18 [facility] Thin prep Papanicolaou smear with manual screeningOrdered By: Dr. 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] them. Was evaluated in the past in [place] for her varicose veins however did not [...] breath Cardiovasc (more content not included)... Normal [facility] Vital Signs Date Time Vital Sign Value Performing Clinician Faci [facility] 09-14-2024 15:59-0400 Body temperature 98 [degF] Dr. Marilee Jiang DO Work Phone: [facility] 09-14-2024 15:59-0400 Diastolic blood pressure 99 mm[Hg] Dr. Marilee Jiang DO Work Phone: [facility] 09-14-2024 15:59-0400 Heart rate 79 /min Dr. Marilee Jiang DO Work Phone: [facility] 09-14-2024 15:59-0400 Respiratory rate 14 /min Dr. Marilee Jiang DO Work Phone: [facility] 09-14-2024 15:59-0400 SaO2% (BldA) [Mass fraction] 98 % Dr. Marilee Jiang DO Work Phone: [facility] 09-14-2024 15:59-0400 Systolic blood pressure 165 mm[Hg] Dr. Marilee Jiang DO Work Phone: [facility] 09-14-2024 13:11-0400 Body height 157.[address] Marilee Jiang DO Work Phone: [facility] 08-03-2023 23:47-0400 Body temperature 96.5 [degF] [facility] 08-03-2023 23:47-0400 Diastolic blood pressure 75 mm[Hg] [facility] 08-03-2023 23:47-0400 Heart rate 73 /min [facility] 08-03-2023 23:47-0400 Respiratory rate 16 /min [facility] 08-03-2023 23:47-0400 SaO2% (BldA) [Mass fraction] 98 % [facility] 08-03-2023 23:47-0400 Systolic blood pressure 174 mm[Hg] [facility] 08-03-2023 21:41-0400 Body height 160.02 cm [facility] 08-03-2023 21:41-0400 Body mass index (BMI) [Ratio] 42.7 kg/m2 [facility] 08-03-2023 21:41-0400 Body weight 109.6 kg [facility] 06-02-2023 01:29-0500 Diastolic blood pressure 68 mm[Hg] Dr. Marilee Jiang Work Phone: [facility] 06-02-2023 01:29-0500 Heart rate 72 /min Dr. Marilee Jiang Work Phone: [facility] 06-02-2023 01:29-0500 Respiratory rate 18 /min Dr. Marilee Jiang Work Phone: [facility] 06-02-2023 01:29-0500 SaO2% (BldA) [Mass fraction] 97 % Dr. Marilee Jiang Work Phone: [facility] 06-02-2023 01:29-0500 Systolic blood pressure 140 mm[Hg] Dr. Marilee Jiang Work Phone: [facility] 06-01-2023 22:24-0500 Body height 158.[address] Marilee Jiang Work Phone: [facility] 06-01-2023 22:24-0500 Body mass index (BMI) [Ratio] 43.5 kg/m2 Dr. Marilee Jiang Work Phone: [facility] 06-01-2023 22:24-0500 Body temperature 97.4 [degF] Dr. Marilee Jiang Work Phone: [facility] 06-01-2023 22:24-0500 Body weight 109.[address] Marilee Jiang Work Phone: [facility] 01-01-2023 13:15-0400 Body height 154.[address] Marilee Jiang Work Phone: [facility] 01-01-2023 13:15-0400 Body weight 106.[address] Marilee Jiang Work Phone: [facility] 12-22-2022 00:09-0400 Body weight 109.76 kg [facility] 11-29-2022 14:00-0400 Body height 154.94 cm [facility] 11-29-2022 14:00-0400 Body weight 109.76 kg [facility] 10-31-2022 10:30-0400 Body height 154.[address] Marilee Jiang Work Phone: [facility] 10-31-2022 10:30-0400 Body weight 110.[address] Marilee Jiang Work Phone: [facility] 08-28-2022 15:22-0400 Body mass index (BMI) [Ratio] 45.1 kg/m2 Dr. Marilee Jiang Work Phone: [facility] 08-28-2022 15:22-0400 Body weight 112.[address] Marilee Jiang Work Phone: [facility] 08-28-2022 15:22-0400 Diastolic blood pressure 74 mm[Hg] Dr. Marilee Jiang Work Phone: [facility] 08-28-2022 15:22-0400 Heart rate 76 /min Dr. Marilee Jiang Work Phone: [facility] 08-28-2022 15:22-0400 SaO2% (BldA) [Mass fraction] 97 % Dr. Marilee Jiang Work Phone: [facility] 08-28-2022 15:22-0400 Systolic blood pressure 162 mm[Hg] Dr. Marilee Jiang Work Phone: [facility] 03-22-2022 10:47-0500 Diastolic blood pressure 54 mm[Hg] Dr. Marilee Jiang Work Phone: [facility] 03-22-2022 10:47-0500 Heart rate 87 /min Dr. Marilee Jiang Work Phone: [facility] 03-22-2022 10:47-0500 Respiratory rate 22 /min Dr. Marilee Jiang Work Phone: [facility] 03-22-2022 10:47-0500 SaO2% (BldA) [Mass fraction] 100 % Dr. Marilee Jiang Work Phone: [facility] 03-22-2022 10:47-0500 Systolic blood pressure 143 mm[Hg] Dr. Marilee Jiang Work Phone: [facility] 03-22-2022 08:16-0500 Body height 157.[address] Marilee Jiang Work Phone: [facility] 03-22-2022 08:16-0500 Body mass index (BMI) [Ratio] 42 kg/m2 Dr. Marilee Jiang Work Phone: [facility] 03-22-2022 08:16-0500 Body temperature 96.4 [degF] Dr. Marilee Jiang Work Phone: [facility] 03-22-2022 08:16-0500 Body weight 104.[address] Marilee Jiang Work Phone: [facility] 02-27-2022 15:29-0500 Body height 157.[address] Marilee Jiang Work Phone: [facility] Work Phone: 02-27-2022 15:29-0500 Body mass index (BMI) [Ratio] 43.3 kg/m2 Dr. Marilee Jiang Work Phone: [facility] 11-07-2022 15:29-0500 Body weight 107.[address] Marilee Jiang Work Phone: [facility] 02-27-2022 15:29-0500 Diastolic blood pressure 70 mm[Hg] Dr. Marilee Jiang Work Phone: [facility] 02-27-2022 15:29-0500 Heart rate 59 /min Dr. Marilee Jiang Work Phone: [facility] 02-27-2022 15:29-0500 SaO2% (BldA) [Mass fraction] 96 % Dr. Marilee Jiang Work Phone: [facility] 02-27-2022 15:29-0500 Systolic blood pressure 161 mm[Hg] Dr. Marilee Jiang Work Phone: [facility] Encounters Encounter Date Encounter Type Care Provider Facility Start: 02-27-2025 End: 02-27-2025 ambulatory Marilee Jiang Facility:[facility] Start: 12-29-2024 End: 12-29-[address] Marilee Jiang DO Work Phone: -Laboratory Specimen Start: 12-29-2024 End: 12-29-[address] Marilee Jiang DO -Laboratory Specimen Work Phone: Start: 12-29-2024 End: 12-29-2024 ambulatory Marilee Jiang Facility:[facility] Start: 11-28-2024 End: 11-28-[address] Marilee Jiang DO Work Phone: -Laboratory Specimen Start: 11-28-2024 End: 11-28-2024 Patient encounter procedure Mya Johnson RODEO PERFORMER-C -Laboratory Specimen Work Phone: Start: 11-28-2024 End: 11-28-2024 ambulatory Mya Johnson Facility:[facility] Start: 10-31-2024 End: 10-31-[address] Marilee Jiang DO Work Phone: -Radiology [facility] Start: 10-31-2024 End: 10-31-2024 Patient encounter procedure Darryl Lackey DO -Radiology [facility] Work Phone: Start: 10-31-2024 End: 10-31-2024 ambulatory Darryl Steele Facility:[facility] Start: 10-21-2024 Non-patient / Non-visit Dr. Gem Gamboa MD -[facility] Work Phone: Start: 10-16-2024 End: 10-16-[address] Marilee Jiang DO Work Phone: -Laboratory Specimen Start: 10-16-2024 End: 10-16-[address] Marilee Jiang DO -Laboratory Specimen Work Phone: Start: 10-16-2024 End: 10-16-2024 ambulatory Marilee Jiang Facility:[facility] Start: 09-14-2024 End: 09-14-2024 Emergency department patient visit Dr. Marilee Jiang DO Work Phone: -Emergency Department Work Phone: Start: 08-28-2024 End: 08-28-2024 Patient encounter procedure Darryl Lackey DO -[facility] Work Phone: Start: 08-28-2024 End: 08-28-2024 ambulatory Darryl Steele Facility:[facility] Start: 07-16-2024 End: 07-16-[address] Marilee Jiang DO Work Phone: [facility] Work Phone: Start: 07-16-2024 End: 07-16-[address] Marilee Jiang DO -Laboratory, [facility] Start: 07-16-2024 End: 07-16-2024 ambulatory Marilee Jiang Facility:[facility] Start: 06-17-2024 End: 06-17-[address] Marilee Jiang DO Work Phone: [facility] Work Phone: Start: 06-17-2024 End: 06-17-[address] Gem Gamboa MD -Cat Scan, [facility] Work Phone: Start: 06-17-2024 End: 06-17-2024 ambulatory Gem Gamboa Facility:[facility] Start: 06-03-2024 End: 06-03-[address] Gem Gamboa MD -Laboratory, [place] Work Phone: Start: 06-03-2024 End: 06-03-2024 ambulatory Marilee Stevenancy Facility:[facility] Start: 05-13-2024 End: 05-13-[address] Marilee ALVARADOCat Rafy, [facility] Work Phone: Start: 05-12-2024 End: 05-13-2024 [facility] Start: 05-12-2024 Non-patient / Non-visit Dr. Todd Lobo MD -[facility] Start: 05-12-2024 End: 05-12-[address] Marilee Jiang DO -Cardiovascular Services Work Phone: Start: 05-12-2024 End: 05-12-2024 [facility] Start: 05-05-2024 End: 05-05-[address] Marilee [facility]ADOLabor[facility] [place] Work Phone: Start: 05-05-2024 End: 05-05-2024 ambulatory Marilee Malnancy Facility:[facility] Start: 04-24-2024 End: 04-24-[address] Marilee [facility]AD[facility]abor[facility] [place] Work Phone: Start: 04-24-2024 End: 04-24-2024 ambulatory Marilee Apolinar Facility:[facility] Start: 04-21-2024 End: 04-21-[address] Marilee Jiang DO -Laboratory [place] Work Phone: Start: 04-21-2024 End: 04-21-2024 ambulatory Marilee Jiang Facility:[facility] Start: 04-15-2024 End: 04-15-[address] Marilee Jiang DO -Outpatient Breast Imaging Work Phone: Start: 04-15-2024 End: 04-15-2024 ambulatory Marilee Jiang Facility:[facility] Start: 08-03-2023 End: 08-03-2023 Emergency department patient visit [facility]-Emergency Department Work Phone: Start: 06-18-2023 End: 06-18-[address] Marilee Jiang Work Phone: [facility] Work Phone: Start: 06-18-2023 End: 06-18-[address] Marilee Jiang Work Phone: [facility] Work Phone: Start: 06-01-2023 End: 06-02-2023 Emergency department patient visit Dr. Marilee Jiang Work Phone: [facility]-Emergency Department Work Phone: Start: 04-24-2023 End: 04-24-[address] Marilee Jiang Work Phone: [facility] Work Phone: Start: 04-24-2023 End: 04-24-[address] Marilee Jiang Work Phone: [facility]-Sleep Lab Work Phone: Start: 04-20-2023 End: 04-20-[address] Marilee Jiang Work Phone: [facility] Work Phone: Start: 04-20-2023 End: 04-20-[address] Marilee Jiang Work Phone: [facility] Work Phone: Start: 04-03-2023 End: 04-03-[address] Marilee Jiang Work Phone: [facility] Work Phone: Start: 04-03-2023 End: 04-03-[address] Marilee Jiang Work Phone: [facility]-Outpatient Breast Imaging Work Phone: Start: 03-30-2023 End: 03-30-2023 Admission to same day surgery center Dr. Mairlee Jiang Work Phone: [facility]-Pre-Admission Testing Work Phone: Start: 03-30-2023 End: 03-30-[address] Marilee Jiang Work Phone: [facility] Work Phone: Start: 02-26-2023 End: 02-26-[address] Marilee Jiang Work Phone: [facility] Work Phone: Start: 01-18-2023 End: 01-18-[address] Marilee Jiang Work Phone: [facility]-Laboratory, Specimen Work Phone: Start: 01-01-2023 End: 01-20-[address] Marilee Jiang Work Phone: [facility]-Nutritional Services Work Phone: Start: 01-01-2023 Registered Recurring [facility]-Nutritional Services Work Phone: Start: 11-29-2022 End: 12-21-2022 Discharged Recurring [facility]-Nutritional Services Work Phone: Start: 11-01-2022 End: 11-01-[address] Marilee Jiang Work Phone: [facility] Work Phone: Start: 11-01-2022 End: 11-01-[address] Marilee Jiang Work Phone: [facility] Work Phone: Start: 10-31-2022 End: 11-20-[address] Marilee Jiang Work Phone: [facility] Work Phone: Start: 10-31-2022 End: 11-20-[address] Marilee Jiang Work Phone: [facility]-Diabetic Clinic Work Phone: Start: 10-31-[address] Marilee Jiang Work Phone: [facility]-Diabetic Clinic Work Phone: Start: 10-30-2022 End: 10-30-2022 [facility] Work Phone: Start: 10-30-2022 End: 10-30-2022 Discharged Recurring [facility]-Physical Therapy Work Phone: Start: 10-30-[address] Marilee Jiang Work Phone: [facility]-Physical Therapy Work Phone: Start: 09-25-2022 End: 09-25-[address] Marilee Jiang Work Phone: [facility] Start: 08-28-2022 End: 08-28-[address] [facility] [facility] Work Phone: Start: 07-24-2022 Non-patient / Non-visit Dr. Marilee Jiang Work Phone: [facility] Start: 07-24-[address] Marilee rosario Work Phone: [facility]-Cardiovascular Services Work Phone: Start: 04-25-2022 End: 04-25-[address] Marilee Jiang Work Phone: [facility] Work Phone: Start: 04-25-2022 End: 04-25-[address] Marilee Jiang Work Phone: [facility] Start: 04-20-2022 End: 04-20-[address] Marilee Jiang Work Phone: [facility] Work Phone: Start: 04-20-2022 End: 04-20-[address] Marilee Jiang Work Phone: [facility] Start: 03-30-2022 End: 03-30-[address] Marilee Jiang Work Phone: [facility] Work Phone: Start: 03-30-2022 End: 03-30-[address] Marilee Jiang Work Phone: [facility]-Outpatient Breast Imaging Start: 03-22-2022 End: 03-22-2022 Emergency department patient visit Dr. Marilee Jiang Work Phone: [facility]-Emergency Department Start: 02-27-2022 End: 02-27-[address] Marilee Jiang Work Phone: [facility] Work Phone: Start: 02-27-2022 End: 02-27-[address] Marilee Jiang Work Phone: [facility]-Physical Therapy Start: 02-27-2022 End: 02-27-[address] Marilee Jiang Work Phone: [facility] G[facility] Procedures Date Procedure Procedure Detail Performing Clinician Start: 12-29-[address] Marilee Jiang DO Work Phone: Start: 11-28-[address] Marilee Jiang DO Work Phone: Start: 10-31-2024 X-ray of esophagus w ith double contrast Dr. Marilee Jiang DO Work Phone: Start: 10-16-[address] Marilee Jiang [...] DO Work Phone: Start: 04-15-2024 Screening mammography D anabella Jiang DO Work Phone: Start: 06-01-2023 CT cervical spine wi thout contrast Dr. Marilee Jiang Work Phone: Start: 06-01-2023 CT of chest without contrast Dr. Marilee Jiang Work Phone: Start: 06-01-2023 CT of head [...] Jiang Work Phone: Start: 03-30-2022 Screening mammography D anabella Jiang Work Phone: Plan of Treatment Date Care Activity Detail Author Start: 09-14-2024 [facility] Start: 08-03-2023 [facility] Start: 06-02-2023 [facility] Patient Education [facility] Work Phone: Patient referral [facility] Work Phone: Immunizations Immunization Date Immunization Notes Care Provider Fa cility 06-02-2023 tetanus toxoid, redu pedro pablo diphtheria toxoid, and acellular pertussis vaccine, adsorbed Dr. Marilee Jiang Work Phone: [facility] 01-08-[address] Marilee Jiang Work Phone: [facility] Payers Date Payer Category Payer Self-pay [id number] 2024 Unknown [id number] 2006 Medicare [id number] Private Health Insurance [id number] Self-pay SELF PAY BY [employer] REQUEST [id number] Unknown [id number] [id number] 62 Unknown [id number] 2.16.840.1.207185.3.579.2.4 62 Unknown [id number] 2.16.840.1.371423.3.579.2.4 62 Unknown [id number] 2.16.840.1.147144.3.579.2.4 62 Unknown [id number] 2.16.840.1.601740.3.579.2.4 62 Unknown [id number] 2.16.840.1.852709.3.579.2.4 62 Unknown [id number] 2.16.840.1.519953.3.579.2.4 62 Unknown [id number] 2.16.840.1.235343.3.579.2.4 62 Unknown [id number] 2.16.840.1.674588.3.579.2.4 62 Unknown [id number] 2.16.840.1.809850.3.579.2.4 62 Unknown [id number] 2.16.840.1.211508.3.579.2.4 62 Unknown [id number] 2.16.840.1.384154.3.579.2.4 62 Unknown [id number] 2.16.840.1.533070.3.579.2.4 62 Unknown [id number] 2.16.840.1.271707.3.579.2.4 62 Unknown [id number] 2.16.840.1.914386.3.579.2.4 62 Unknown [id number] 2.16.840.1.476201.3.579.2.4 62 Unknown [id number] 2.16.840.1.721341.3.579.2.4 62 Social History Date Type Detail Facility Start: 02-27-2022 End: 02-26-2023 Tobacco smoking status NHIS Unknown if ever smoked [facility] Start: 10-05-2020 None [facility] Start: 10-05-2020 Non-smoker [facility] Start: 1940 Sex Assigned At Female [facility] Start: 01-02-2024 End: 09-14-2024 Tobacco smoking status NHIS Ex-smoker (finding) [facility] Start: 07-02-2024 End: 07-21-2024 Sex Female (finding) [facility] Mental Status Date Assessment Result Facility 03-22-2022 Cognitive function Level Of Cons ciousness Awake;Alert;Appropriate;Follow s Commands [facility] Work Phone: Clinical Notes 07-20-2020 to 10-31-2024 Note Date & Type Note Facility 10-31-2024 Radiology Diagnostic study note [facility] Imaging Services [address] [place] [address] Esophagus Dual Contrast MR#: [id number] Acct: [id number] Name: LAZARA SHANE Rep #: [id number] : 1940 F 84 From: Jose Dodge MD PCP: Dr. Marilee Jiang DO Status: REG CLI Study:Esophagus Dual Contrast Date of Exam: 10/31/24 Exam# [id number] Ordering Dr: Sony Lackey DO EXAM: Air-contrast esophagram barium swallow. CLINICAL HISTORY: Choking on solid foods. COMPARISON: None TECHNIQUE: The patient ingested barium. Fluoroscopic imaging of the esophagus was performed. Dose report: Fluoroscopy: 36 seconds. 6 mGy. FINDINGS: There is evidence of gastroesophageal reflux. No evidence of obstruction. No mass lesion is seen. The patient ingested a 12 mm tablet the barium without any difficulty. RAD/Esophagus Dual Contrast IMPRESSION: Gastroesophageal reflux. Reading Location: [facility] CC: Dr. Marilee Jiang DO; Darryl Lackey DO ~ Mold Release Worker: Signed [facility] 09-14-2024 Discharge summary [facility] 09-14-2024 Radiology Diagnostic study note [facility] Imaging Services [address] [place] [address] Lumbar Spine 2 or 3 Views MR#: [id number] Acct: [id number] Name: LAZARA SHANE Rep #: [id number] : 1940 F 84 From: Pet er Peer PCP: Dr. Marilee Jiang DO Status: REG ER Study:Lumbar Spine 2 or 3 Views Date of Exam: 09/14/24 Exam# [id number] Ordering Dr: Jay Patel DO PROCEDURE: LUMBAR [...] detected. Other findings as above Reading Location: [facility]- CC: Dr. Jay Patel DO; Dr. Marilee Jiang DO ~ Mold Release Worker: Signed [facility] 09-14-2024 Discharge summary Note Date/Time September 14, 2024 4:07pm [facility] Medical Records Department [address] [place] [address] Emergency Department Summary 09/14/24 MR#: [id number] Acct: [id number] Name: LAZARA SHANE Rep #:[id number] : 1940 84 From: Jay Amado PCP: [...] bladder changes. Patient denies any saddle anesthesia. [facility] Medical History Diarrhea Diabetes Gastroparesis Unsteady gait [...] detected. Other findings as above [facility] X-rays of the lumbar spine were obtained. [...] Care Provider] - 5-7 Days Print Language: Citizen Of [place] Disposition Disposition: Home, Self Care What to do if you have Problems For any increased pain, shortness of breath, bleeding, nausea or vomiting, chestpain, or any unexpected problems, contact your Primary Care Provider. Call [facility] ([phone]) or report to the closest Emergency Room. Call 911 if necessary. 09/14/24 1607 <Electronically signed by Jay Patel DO> Cosigner Signature (if applicable): CC: Dr. Marilee Jiang DO ~ Signed [facility] Work Phone: 1(866) 385-467905-08-2025 Evaluation note* Diagnosis Onset Date Resolution Status Admit Date Dysphagia noneactive August 28, 2024 3:16pm [facility] Work Phone: 1(156) 668-251702-26-2025 Radiology Diagnostic study note [facility] Imaging Services [address], [place] [address] Abdomen/Pelvis without Cont MR#: [id number] Acct: [id number] Name: LAZARA SHANE Rep #: [id number] : 1940 F 83 From: Jose Dodge MD PCP: Dr. Marilee Jiang DO Status: REG CLI Study:Abdomen/Pelvis without Cont Date of Exa m: 06/17/24 Exam# [id number] Ordering Dr: Gem Gamboa MD PROCEDURE: ABDOMEN/PELVIS [...] use of iterative reconstruction technique). Reading Location: [id number] CC: Dr. Gem Gamboa MD; Dr. Marilee Jiang DO ~ Mold Release Worker: Signed [facility]07-13-2021 NoteHNO ID: [id number] Author: Socorro Hyatt DO Service: ? Author Type: Physician Type: Progress Notes Filed: 11/02/2020 4:20 PM Note Text: This office note has been dictated. Socorro Hyatt, [facility]07-13-2021 NoteHNO ID: [id number] Author: Socorro Hyatt DO Service: Vascular Surgery Author Type: Physician Type: Progress Notes Filed: 11/08/2020 9:50 AM Note Text: NAME: LAZARA SHANE [facility] NO: [id number] DATE OF SERVICE: 11/02/2020 Subjective: Mrs. Shane [...] plan. Socorro Hyatt D.O. KB/089 Audio #: [id number] Date Dictated: 11/02/2020 14:36:42 Date Typed: 11/06/2020 09:07:23 Date Revised:[facility]03-30-2021 NoteHNO ID: [id number] Author: Socorro Hyatt Service: ? Author Type: [...] them. Was evaluated in the past in [place] for her varicose veins however did not [...] SCOPE,DIAGNOSTIC 1988 Arthroscopy, knee, right - LAP CHOLECYSTECT/CHOLANGIOGRAPHY 04/08/08 [...] dysuria, frequency, or in (more content not included)...[facility]* Diagnosis Onset Date Resolution Status Gastroparesis acute IBS (irritable bowel syndrome) acute Gastroesophageal reflux disease [facility] Work Phone: Evaluation note* Diagnosis Onset Date Resolution Status Gastroesophageal reflux disease chronic IBS (irritable bowel syndrome) [facility] Work Phone: Evaluation noteNo assessment information available [facility] Work Phone: Evaluation note* Diagnosis Onset Date Resolution Status Diabetes acute Diarrhea acute Gastroesophageal reflux disease chronic IBS (irritable bowel syndrome) chronic [facility] Work Phone: Hospital Discharge instructions Additional Instructions Recommend decreasing insulin from 20 units in the morning to 15 units.[facility] Work Phone: Reason for referral (narrative)No [facility] for [facility] Work Phone: Summary Purpose Family History No [...] No November 08, 2017 9:57pm Power of Final Expense Agent No November 08 8 9:57pm Advance Directive Response Recorded Date/ Time Advance Directives No March 10:47am Living Will No March 22, 2 022 8:33am Power of Final Expense Agent No March 22, 2022 8:33am Advance Directive Response Recorded Date/ Time Advance Directives No March 11:47am Living Will No March 22, 2 022 9:33am Power of Final Expense Agent No March 22, 2022 9:33am Advance Directive Response Recorded Date/ Time Advance Directives No March 10:47am Living Will No June 01 10:30pm Power of Final Expense Agent No June 01, 2023 10:30pm Advance Directive Response Recorded Date/ Time Advance Directives No March 11:47am Living Will No August 03, 2023 11:47pm Power of Final Expense Agent No August 02 11:47pm Advance Directive Response Recorded Date/ Time Advance Directives No March 11:47am Advance Directive Response Recorded Date/ Time Do you have a Healthcare Power of Final Expense Agent? No September 14, 2024 1:46pm Advance Directives No March 11:47am Chief Complaint and Reason for Visit Chief Complaint Admit Date Dysphagia August 28, 2024 3:16pm BACK September 14, 2024 1:11p m DYSPHAGIA October 31, 2024 9:41 am Reason for Visit Admit Date Dysphagia August 28, 2024 3:16pm Chief Complaint Admit Date Dysphagia August 28, 2024 3:16pm BACK September 14, 2024 1:11p m Chief Complaint 4 MO FU PELVIC FLOOR/PT [...] 3:16pm BACK September 14, 2024 1:11p m Chief Complaint Admit Date BACK September 14, 2024 1:11p m DYSPHAGIA October 31, 2024 9:41 am Additional Source Comments INFORMATION SOURCE (unrecogn ized section and content) DATE CREATED AUTHOR 05/22/2021 [facility] DATE CREATED AUTHOR AUTHOR'S ORGANPETR ATION 03/04/2025 [place] [facility] Goals (unrecognized section and content) Goals may [...] DO Family Provider Active Dr. Marilee Jiang DO Primary Care Provider Active Team Status: Inactive Member Role Status Dates Dr. Marilee Jiang DO Primary Care Provider, Referring P rovider Active Eloisa Church RODEO PERFORMER, RODEO PERFORMER-C Attending Provider Active Team Status: Inactive Member [...] Referring P rovider Active Dr. Darryl Lackey , Attending Provider Active Team Status: Inactive Member [...] End: September 14, 2024 Dr. Jay Patel , Emergency Provider Active Start: September 14, 2024 [...] End: August 28, 2024 Dr. Darryl Lackey , Attending Provider Active Start: August 28, 2024 [...] October 16, 2024 End: October 16, 2024 Team Status: Inactive Member Role/Relationship Status Dates Dr. Marilee Jiang DO Primary Care Provider Active Start: October 31, 2024 End: October 31, 2024 Dr. Darryl Lackey DO Attending Provider Active Start: October 31, 2024 End: October 31, 2024 Dr. Darryl Lackey DO Referring Provider Active Start: October 31, 2024 End: October 31, 2024 Team Status: Inactive Member Role/Relationship Status [...] End: September 14, 2024 Dr. Jay Patel , Emergency Provider Active Start: September 14, 2024 End: September 14, 2024 Team Status: Inactive Member Role/Relationship Status Dates Dr. Marilee Jiang DO Primary Care Provider Active Start: October 16, 2024 End: October 16, 2024 Dr. Marilee Jiang DO Attending Provider Active St art: October 16, 2024 End: October 16, 2024 Team Status: Inactive Member Role/Relationship Status Dates Dr. Marilee Jiang DO Primary Care Provider Active Start: October 21, 2024 Dr. Gem Gamboa MD Attending Provider Active Start: October 21, 2024 Team Status: Inactive Member Role/Relationship Status Dates Dr. Marilee Jiang DO Primary Care Provider Active Start: November 28, 2024 End: November 28, 2024 EMERALD Person Attending Provider Active St art: November 28, 2024 End: November 28, 2024 Team Status: Inactive Member Role/Relationship [...] October 16, 2024 End: October 16, 2024 Team Status: Inactive Member Role/Relationship Status Dates Dr. Marilee Jiang DO Primary Care Provider Active Start: October 21, 2024 Dr. Gem Gamboa MD Attending Provider Active Start: October 21, 2024 Team Status: Inactive Member Role/Relationship Status Dates Dr. Marilee Jiang DO Primary Care Provider Active Start: October 31, 2024 End: October 31, 2024 Dr. Darryl Lackey DO Attending Provider Active Start: October 31, 2024 End: October 31, 2024 Dr. Darryl Lackey DO Referring Provider Active Start: October 31, 2024 End: October 31, 2024 Team Status: Inactive Member Role/Relationship Status Dates Dr. Marilee Jiang DO Primary Care Provider Active Start: November 28, 2024 End: November 28, 2024 EMERALD Person Attending Provider Active St art: November 28, 2024 End: November 28, 2024 Team Status: Inactive Member Role/Relationship Status Dates Dr. Marilee Jiang DO Primary Care Provider Active Start: December 29, 2024 End: December 29, 2024 Dr. Marilee Malys , DO Attending Provider Active St art: December 29, 2024 End: December 29, 2024 FOR RECORDS PERTAINING TO PATIENTS WHO [...] BE BASED ON THE PRIMARY CLINICAL RECORDS. [facility] [employer] provides no warranty or guarantee of the accuracy or completeness of information in this document.
[2025-03-15 05:31] LABS: Troponin T High Sens 2 HR 43 ng/L (<=14)
--- NOTE | 2025-03-15 05:33 | CT_ITS ---
PROCEDURE: CTA CHEST W/WO CONTRAST 03/15/2025 REASON FOR EXAM: RULEOUT PE TECHNIQUE: Procedure Code: CTCTACHWW Modality: CT Procedure: CTA CHEST W/WO CONTRAST Multiplanar Sagittal and Coronal images were obtained. CONTRAST: Isovue 370 VOLUME: 99 mL One or more dose reduction techniques were used (e.g., Automated exposure control, adjustment of the mA and/or kV according to patient size, use of iterative reconstruction technique). RADIATION DOSE SUMMARY: CTDlvol: 15.83 mGy DLP: 580.38 MGycm COMPARISON: None # of known CTs in the past 12 months: 0 # of known Cardiac Nuclear Medicine Studies in the past 12 months: 0 FINDINGS: Thoracic Aorta: No aneurysm. Heart: No cardiomegaly. Atherosclerotic calcifications of the coronary arteries. Pulmonary Vessels: Patent. Hardware: Monitor electrodes overlie the chest. Lymph nodes: No lymphadenopathy. Lungs and Airways: No pulmonary consolidation. Pleura: Small bilateral pleural effusions. Upper Abdomen: Contrast reflux to the hepatic vein. Bones: No acute bony abnormalities. CT/CTA Chest W/WO Contrast IMPRESSION: No evidence of pulmonary embolism. Bilateral small pleural effusion with contrast reflux to the hepatic vein sugge stive of right heart failure. Reading Location: [id number]
--- NOTE | 2025-03-15 05:34 | PCM.HP.STD ---
HPI - General General Date of Admission: 03/15/25 Date of Service: 03/15/25 Chief Complaint: Shortness of breath HPI Narrative LAZARA SHANE, is a 84 F who presented to the emergency department [facility] 03/15/2025 with acute onset shortness of breath. Patient does have significant cardiac risk factors including hyperlipidemia, hypertension, DM-2, and morbid obesity. Patient stated that she was in bed and at about 2 to 3 AM she developed acute onset dyspnea with orthopnea. She indicated that she has had significant fatigue and some mild shortness of breath with most notably exertion and intermittent diaphoresis and left-sided chest pain. She states that the fatigue and exertional shortness of breath have been ongoing for about 2 to 3 weeks now. Chest pain to started in the last 24 hours. She denies any current chest pain. She does not report any radiation of her chest pain but does state it was like pressure on the left side of her chest. Vital signs on presentation showed temperature of 98.2, heart rate 83, blood pressure was 139/68, respiratory rate was 22 and pulse ox is 98% on room air. CBC shows a mild anemia with a hemoglobin of 10.5. Chemistry panel is unremarkable other than a blood glucose level 242. Lactic acid is 1.1. AST and ALT were mildly elevated at 36 and 42 respectively. Initial troponin was 22 with a delta of 43. proBNP was 1074. EKG shows a new left bundle branch block compared to previous EKG in 2018. We do not have anything more current. She also has a mild first-degree heart block with a NY interval of 207. Chest x-ray is markedly abnormal bilaterally with interstitial opacifications and left pleural effusion and was suggestive of a right lower lung zone nodule.. CTA of the chest was performed and demonstrated upon my review increasing wheeziness in the lung block bilaterally consistent with volume overload but no large obstructive PE identified however, final radiology read is still pending at the time of admission. [facility] Medical History Morbid obesity Diarrhea Diabetes Gastroparesis Unsteady gait Shortness of breath Asthma Home Medications ?Medication ?Instructions ?Recorded ?Last Taken ?Type ascorbic acid (vitamin C) 500 mg 500 mg PO DAILY supplement 11/08/17 11/07/17 20:00 History capsule brimonidine 0.15 % eye drops 1 drp BID damaged eye 11/08/17 11/08/17 08:00 History cyanocobalamin (vitamin B-12) 500 1 tab PO DAILY@0800 supplement 11/08/17 11/08/17 08:00 History mcg tablet glimepiride 4 mg tablet 4 mg PO BID diabetes 11/08/17 11/08/17 08:00 History insulin glargine 100 unit/mL 18 unit subcut QHS diabetes 11/08/17 11/07/17 20:00 History subcutaneous solution (Lantus U-100 Insulin) losartan 50 mg tablet 75 mg PO DAILY blood pressure 11/08/17 11/08/17 08:00 History multivitamin (Daily Multiple 1 ea PO DAILY supplement 11/08/17 11/08/17 08:00 History tablet) omega-3 fatty acids-fish oil 340 1 ea PO DAILY supplement 11/08/17 11/08/17 08:00 History mg-1,000 mg capsule (Fish Oil) pravastatin 10 mg tablet 10 mg PO QHS cholesterol 11/08/17 11/07/17 20:00 History pioglitazone 45 mg tablet (Actos) 45 mg PO DAILY 10/27/21 Unknown History desmopressin 0.2 mg tablet 0.2 mg PO DAILY 02/27/25 Unknown History fesoterodine 4 mg tablet,extended 4 mg PO QDAY 02/27/25 Unknown History release 24 hr losartan 25 mg tablet 25 mg PO QDAY 02/27/25 Unknown History albuterol sulfate 90 mcg/actuation 2 puff inhalation Q4H PRN PRN 03/15/25 Unknown History aerosol inhaler shortness of breath or wheezing omeprazole 20 mg capsule,delayed 20 mg PO DAILY 03/15/25 Unknown History release Allergy/AdvReac Type Severity Reaction Status Date / Time levofloxacin (From Levaquin) Allergy Mild rash Verified 03/15/25 02:49 oxycodone Allergy Mild Swelling Verified 03/15/25 02:49 aspirin Allergy Rash Verified 03/15/25 02:49 codeine Allergy Rash Verified 03/15/25 02:49 NSAIDS (Non-Steroidal Allergy Rash Verified 03/15/25 02:49 Anti-Inflamma Penicillins Allergy Rash Verified 03/15/25 02:49 solifenacin (From Vesicare) Allergy Unknown Verified 03/15/25 02:49 Sulfa (Sulfonamide Allergy Rash Verified 03/15/25 02:49 Antibiotics) Family History Sister Breast cancer Mother CVA (cerebral vascular accident) Hypertension Father Diabetes Heart disease Surgical History History of knee replacement History of hysterectomy History of colonoscopy History of left inguinal hernia repair History of left inguinal hernia repair History of left inguinal hernia repair Social History household members: family housing: house Smoking Status: Former smoker alcohol intake: never substance use type: does not use ROS Constitutional Constitutional: Denies anorexia, change in weight, chills, fatigue, fever(s), malaise, night sweats, weakness or other Eyes Eyes: Denies blurry vision, change in eye color, change in vision, discharge from eye(s), double vision, erythema, eye pain, loss of vision or other ENT HEENT: Reports abnormal hearing and hearing loss; Denies dysphagia, ear pain, epistaxis, headache(s), nasal congestion, nasal discharge, post nasal drip, sinus pressure, sore throat or other Cardiovascular Cardiovascular: Reports chest pain, dyspnea on exertion, orthopnea and other Details: Diaphoresis ; Denies claudication, edema, lightheadedness, palpitations, paroxysmal nocturnal dyspnea, rapid heart rate or syncope Respiratory/Chest Respiratory/Chest: Reports shortness of breath with exertion Gastrointestinal Gastrointestinal: Denies abdominal pain, coffee ground emesis, constipation, diarrhea, dyspepsia, hematemesis, hematochezia, loose stools, melena, nausea, vomiting or other Genitourinary Genitourinary: Reports urinary incontinence; Denies burning urination, difficulty urinating, dysuria, hematuria, nocturia, urinary frequency, urinary hesitancy, urinary urgency or other Musculoskeletal Musculoskeletal: Reports neck pain; Denies arthralgias, back pain, joint pain, joint stiffness, joint swelling, myalgias or other Neurologic Neurologic: Denies abnormal gait, abnormal speech, confusion, disequilibrium, dizziness, focal weakness, headache(s), numbness, paresthesias, seizure-like activity, seizures, syncope, tingling, tremor(s) or other Psychiatric Psychiatric: Denies anxiety, depression, homicidal ideation, suicidal ideation or other Endocrine Endocrinology: Denies change in body appearance, cold intolerance, excessive sweating, heat intolerance, polydipsia, polyuria or other Hematologic/Lymphatic Hematologic/Lymphatic: Denies anemia, easy bleeding, easy bruising, lymphadenopathy or other Allergic/Immunologic Allergic/Immunologic: Denies rhinitis, hives, eczemia, asthma or other Vital Signs Vital Signs Vital Signs: 03/15/25 02:44 03/15/25 02:48 03/15/25 02:48 Temperature 98.2 F 98.2 F Temperature Source Oral Oral Pulse Rate 83 87 Respiratory Rate 22 H 18 Respiratory Effort Respiratory Pattern Blood Pressure 139/68 H 138/68 H Blood Pressure Mean 91 91 Pulse Ox 98 98 98 Oxygen Delivery Method Room Air Room Air Room Air 03/15/25 03:30 03/15/25 03:43 03/15/25 03:48 Temperature 98.2 F Temperature Source Oral Pulse Rate 76 80 Respiratory Rate 19 H 19 H Respiratory Effort Short of Breath Respiratory Pattern Tachypnea Blood Pressure 139/68 H 139/68 H Blood Pressure Mean 91 91 Pulse Ox 96 95 Oxygen Delivery Method Room Air Room Air Room Air 03/15/25 04:00 03/15/25 05:00 Temperature 98.2 F 97.7 F L Temperature Source Oral Oral Pulse Rate 80 78 Respiratory Rate 19 H 20 H Respiratory Effort Respiratory Pattern Blood Pressure 136/64 H 125/55 H Blood Pressure Mean 88 78 Pulse Ox 99 96 Oxygen Delivery Method Room Air Room Air Weight Weight: 104.326 kg Body Mass Index (BMI) 42.0 Physical Exam Const alert, oriented x3, no apparent distress and well nourished; Negative for average body habitus or healthy appearing Constitutional Narrative: Morbidly obese, white female, lying in bed, appears more comfortable as she is able to lie flatter than previous, daughter at bedside, does not look toxic General Appearance: cooperative HEENT normocephalic, head/scalp atraumatic and moist oral mucous membranes; Negative for hearing grossly normal bilaterally HEENT Narrative: Moderate hearing loss, Mallampati is 3, no thrush, dentition is fair for age Eyes EOMs intact bilaterally and conjunctivae normal Eyes Narrative: No scleral icterus Neck supple Neck Narrative: Trachea midline, neck is short thick and neck veins are not well-visualized Resp normal respiratory effort, no retractions, no use of accessory muscles and No clear to auscultation bilaterally Resp Narrative: Crackles at bases bilaterally, left greater than right Auscultation: crackles; Negative for rhonchi or wheezes Cardio regular rate, regular rhythm, S1 normal heart sound, no rub, no gallops and no clicks; Negative for S2 normal heart sound or no murmurs Cardio Narrative: Soft S2, 3 out of 6 systolic murmur loudest at right upper sternal border does not seem to radiate to the carotids GI normal to inspection, nondistended, normoactive bowel sounds, soft to palpation and non-tender Extremity no clubbing, cyanosis or edema Extremity Narrative: 2+ pedal pulses, 2+ radial pulses, significant bilateral lower extremity varicosities Skin Skin Narrative: No lesions, good turgor Neuro moves all extremities and no focal motor deficits Speech: speech normal Psych affect normal Psych Narrative: Very pleasant, interacts appropriately Results Lab / Micro Data 03/15/25 02:52 03/15/25 02:52 Labs: Laboratory Results - last 24 hr 03/15/25 02:52: WBC 9.5, RBC 3.82 L, Hgb 10.5 L, Hct 32.2 L, MCV 84.3, MCH 27.5, MCHC 32.6, RDW Std Deviation 47.4 H, RDW Coeff of Adalid 15.5 H, Plt Count 296, MPV 8.9, Immature Gran % (Auto) 1.100 H, Neut % (Auto) 66.0, Lymph % (Auto) 21.0, Woodruff % (Auto) 7.8, Eos % (Auto) 3.6, Baso % (Auto) 0.5, Absolute Neuts (auto) 6.3, Absolute Lymphs (auto) 1.99, Nucleated RBC % 0, Sodium 134, Potassium 3.8, Chloride 98, Carbon Dioxide 25.4, Anion Gap 10, BUN 20 H, Creatinine 0.60 L, Estim Creat Clear Calc 60.39, Est GFR (MDRD) Non-Af 89, BUN/Creatinine Ratio 33.1 H, Glucose 242 H, Lactic Acid 1.1, Calcium 9.0, Total Bilirubin 0.33, AST 36 H, ALT 42 H, Alkaline Phosphatase 73, Troponin T High Sens 22 H, NT pro BNP II 1074, Total Protein 7.3, Albumin 3.6, Globulin 3.7, Albumin/Globulin Ratio 1.0 03/15/25 04:57: Troponin T Hi Sens 2 Hr 43 H Micro: Microbiology 03/15/25 02:50 Mucosa - Nose SARS-CoV-2, Influenza & RSV (PCR) - Final Imaging Radiology Impression Chest X-Ray 03/15/25 03:10 IMPRESSION: Interstitial opacifications and left pleural effusion suggest pulmonary vascular congestion but could also be seen with a diffuse inflammatory process. Follow-up recommended to ensure resolution. Right lower lung zone nodule. New since the prior study, advise follow up. Reading Location: [place] [id number] Assessment & Plan Assessment/Plan (1) Dyspnea: (2) Elevated troponin: (3) New onset of congestive heart failure: (4) Orthopnea: (5) Hyperglycemia: (6) Left bundle branch block: (7) First degree heart block: PLAN: Plan Chest pain/orthopnea/exertional dyspnea secondary to suspected new onset HFrEF from NSTEMI - EKG shows new left bundle branch block compared to previous EKG in 2018. We have no data since then - Currently chest pain-free - Has had increased fatigue with exertional shortness of breath, left-sided chest pain and intermittent diaphoresis over the last 2 weeks or so - Cardiac enzymes are cycling but mildly elevated initially - Chest x-ray is consistent with volume overload - CT of the chest shows - Diuretics with Lasix 40 mg IV twice daily - Sodium restricted diet - Fluid restriction to 1500 cc daily - Check echocardiogram - Monitor on telemetry NSTEMI - Cycle enzymes - Check echocardiogram - Check lipid panel and continue statin but increase from 10 mg pravastatin to atorvastatin 40 mg daily - Aspirin 81 mg daily - Heparin drip for possible NSTEMI - Check hemoglobin A1c - Elevation with rise is significant enough so we will consult cardiology for assistance as noninvasive versus invasive testing is likely appropriate at this time especially with new left bundle branch block compared to previous in 2018 Cardiac murmur - Sounds aortic - Check echocardiogram Left bundle branch block - This is new compared to her last EKG in our system from 2018 - The absolute acuity is unclear at this time however it does concern me that she may have had a cardiac event at some point recently - Workup as above First-degree heart block - Slightly prolongated [place] interval at 207 - No further workup at this time Mild transaminitis - Highly suspect fatty liver - CT of the chest does show liver and is consistent with - Recommend outpatient follow-up DM-2 with hyperglycemia - Hold home oral agents to include pioglitazone and glimepiride - Continue Lantus but increase to 22 units from 18 - SSI high-dose - Accu-Cheks as ordered - Cardiac/carb controlled diet Essential hypertension/hyperlipidemia - Continue home losartan - Continue home statin but changed from pravastatin 10 mg daily to atorvastatin 40 mg daily - As needed hydralazine available GERD - Continue PPI Overactive bladder - Continue fesoterodine - Follows outpatient with Dr. 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 patient would benefit from outpatient polysomnography History of tobacco abuse - Remote - Recommend ongoing cessation - As needed albuterol DVT prophylaxis - Heparin drip for suspected NSTEMI CODE STATUS - Full code as verified at the time of admission Charges/Coding Visit Charges Inpatient E&M: 45386 Init Hosp L3 ZAYRA Risk Score for UA/STEMI Assesmment (YES = 1) > or = 3 CAD risk factors (HTN, Hypercholesterolemia, Diabetes, family hx, current smoker): Yes Known CAD (Stenosis > or = 50%): No ASA used in past 7 days: No Severe angina (> or = 2 episodes in 24 hrs): No EKG ST change > or = 0.5mm: Yes Positive cardiac markers: Yes Score ZAYRA Risk Score of mortality/ recurrent ischemic event over the next 14 days: 3 = 13.2% Intermediate Risk
--- NOTE | 2025-03-15 05:38 | EDS_ITS ---
HPI History of Present Illness Chief Complaint: Shortness of Breath Narrative Narrative: Patient was seen and examined after presenting to ED for shortness of breath stating that she cannot lie flat at all. She feels like it started tonight. No chest pain or pressure. No history of heart failure not on diuretics denies fevers or chills. [facility] Medical History (Updated 03/15/25 @ 06:[address] Velasquez Elise, DO) Morbid obesity Diarrhea Diabetes Gastroparesis Unsteady gait Shortness of breath Asthma Home Medications ?Medication ?Instructions ?Recorded ?Last Taken ?Type ascorbic acid (vitamin C) 500 mg 500 mg PO DAILY suppl ement 11/08/17 11/07/17 20:00 History capsule brimonidine 0.15 % eye drops 1 drp BID damaged eye 11/08/17 08:00 History cyanocobalamin (vitamin B-12) 500 1 tab PO DAILY@0800 supplement 11/08/17 11/08/17 08:00 History mcg tablet glimepiride 4 mg tablet 4 mg PO BID diabetes 8 11/08/17 08:00 History insulin glargine 100 unit/mL 18 unit subcut QHS diabet es 11/08/17 11/07/17 20:00 History subcutaneous solution (Lantus U-100 Insulin) losartan 50 mg tablet 75 mg PO DAILY blood pressur e 11/08/17 11/08/17 08:00 History multivitamin (Daily Multiple 1 ea PO DAILY supplement 11/08/17 11/08/17 08:00 History tablet) omega-3 fatty acids-fish oil 340 1 ea PO DAILY supplem ent 11/08/17 11/08/17 08:00 History mg-1,000 mg capsule (Fish Oil) pravastatin 10 mg tablet 10 mg PO QHS cholesterol 11/07/17 20:00 History pioglitazone 45 mg tablet (Actos) 45 mg PO DAILY 10/27 Unknown History desmopressin 0.2 mg tablet 0.2 mg PO DAILY 02/27/25 Un known History fesoterodine 4 mg tablet,extended 4 mg PO QDAY
--- NOTE | 2025-03-15 05:38 | ED.VIS.DYS ---
HPI History of Present Illness Chief Complaint: Shortness of Breath Narrative Narrative: Patient was seen and examined after presenting to ED for shortness of breath stating that she cannot lie flat at all. She feels like it started tonight. No chest pain or pressure. No history of heart failure not on diuretics denies fevers or chills. [facility] Medical History (Updated 03/15/25 @ 06:[address] Velasquez Elise, DO) Morbid obesity Diarrhea Diabetes Gastroparesis Unsteady gait Shortness of breath Asthma Home Medications ?Medication ?Instructions ?Recorded ?Last Taken ?Type ascorbic acid (vitamin C) 500 mg 500 mg PO DAILY supplement 11/08/17 11/07/17 20:00 History capsule brimonidine 0.15 % eye drops 1 drp BID damaged eye 11/08/17 11/08/17 08:00 History cyanocobalamin (vitamin B-12) 500 1 tab PO DAILY@0800 supplement 11/08/17 11/08/17 08:00 History mcg tablet glimepiride 4 mg tablet 4 mg PO BID diabetes 11/08/17 11/08/17 08:00 History insulin glargine 100 unit/mL 18 unit subcut QHS diabetes 11/08/17 11/07/17 20:00 History subcutaneous solution (Lantus U-100 Insulin) losartan 50 mg tablet 75 mg PO DAILY blood pressure 11/08/17 11/08/17 08:00 History multivitamin (Daily Multiple 1 ea PO DAILY supplement 11/08/17 11/08/17 08:00 History tablet) omega-3 fatty acids-fish oil 340 1 ea PO DAILY supplement 11/08/17 11/08/17 08:00 History mg-1,000 mg capsule (Fish Oil) pravastatin 10 mg tablet 10 mg PO QHS cholesterol 11/08/17 11/07/17 20:00 History pioglitazone 45 mg tablet (Actos) 45 mg PO DAILY 10/27/21 Unknown History desmopressin 0.2 mg tablet 0.2 mg PO DAILY 02/27/25 Unknown History fesoterodine 4 mg tablet,extended 4 mg PO QDAY 02/27/25 Unknown History release 24 hr losartan 25 mg tablet 25 mg PO QDAY 02/27/25 Unknown History albuterol sulfate 90 mcg/actuation 2 puff inhalation Q4H PRN PRN 03/15/25 Unknown History aerosol inhaler shortness of breath or wheezing omeprazole 20 mg capsule,delayed 20 mg PO DAILY 03/15/25 Unknown History release Allergy/AdvReac Type Severity Reaction Status Date / Time levofloxacin (From Levaquin) Allergy Mild rash Verified 03/15/25 02:49 oxycodone Allergy Mild Swelling Verified 03/15/25 02:49 aspirin Allergy Rash Verified 03/15/25 02:49 codeine Allergy Rash Verified 03/15/25 02:49 NSAIDS (Non-Steroidal Allergy Rash Verified 03/15/25 02:49 Anti-Inflamma Penicillins Allergy Rash Verified 03/15/25 02:49 solifenacin (From Vesicare) Allergy Unknown Verified 03/15/25 02:49 Sulfa (Sulfonamide Allergy Rash Verified 03/15/25 02:49 Antibiotics) Family History Sister Breast cancer Mother CVA (cerebral vascular accident) Hypertension Father Diabetes Heart disease Surgical History History of knee replacement History of hysterectomy History of colonoscopy History of left inguinal hernia repair History of left inguinal hernia repair History of left inguinal hernia repair Social History household members: family Smoking Status: Former smoker substance use type: does not use ROS ROS ED ROS Narrative Pertinent Positives: Shortness of breath orthopnea Pertinent Negatives: Chest pain pressure fevers chills vomiting diarrhea history of PE or DVT or use of anticoagulation The remainder of review of systems negative unless otherwise stated in the HPI above. Systems reviewed including constitutional, psychiatric, cardiovascular, respiratory, integument, HENT, gastrointestinal. EXAM Physical Exam Narrative Exam Narrative: Patient is afebrile hemodynamically stable does have some coarse lung sounds bilaterally. Her abdomen is soft nontender nondistended. She has some mild bilateral nonpitting edema in her lower extremities intact MSPs however no calf tenderness. We have the patient up and ambulatory as informed by nursing staff that she appeared rather dyspneic but did not desaturate below 95% Const Vital Signs: 03/15/25 02:44 03/15/25 02:48 03/15/25 02:48 Temperature 98.2 F 98.2 F Temperature Source Oral Oral Pulse Rate 83 87 Respiratory Rate 22 H 18 Respiratory Effort Respiratory Pattern Blood Pressure 139/68 H 138/68 H Blood Pressure Mean 91 91 Pulse Ox 98 98 98 Oxygen Delivery Method Room Air Room Air Room Air 03/15/25 03:30 03/15/25 03:43 03/15/25 03:48 Temperature 98.2 F Temperature Source Oral Pulse Rate 76 80 Respiratory Rate 19 H 19 H Respiratory Effort Short of Breath Respiratory Pattern Tachypnea Blood Pressure 139/68 H 139/68 H Blood Pressure Mean 91 91 Pulse Ox 96 95 Oxygen Delivery Method Room Air Room Air Room Air 03/15/25 04:00 03/15/25 05:00 Temperature 98.2 F 97.7 F L Temperature Source Oral Oral Pulse Rate 80 78 Respiratory Rate 19 H 20 H Respiratory Effort Respiratory Pattern Blood Pressure 136/64 H 125/55 H Blood Pressure Mean 88 78 Pulse Ox 99 96 Oxygen Delivery Method Room Air Room Air MDM MDM MDM Narrative Medical decision making narrative: Nursing notes, triage notes, available previous documentation, and vital signs were reviewed. Any discrepancies noted were addressed. Differential Diagnoses: New onset heart failure with exacerbation, could be pneumonia, could be viral, could be PE Interventions: Lasix Labs Reviewed: No leukocytosis or leukopenia hemoglobin is 10.5 no electrolyte abnormality creatinine was 0.6 with a BUN of 20 lactic acid was only 1.1 minimal transaminitis initial troponin was 22 delta troponin was more elevated though at 43. proBNP was 1074 Imaging Reviewed: Personally reviewed and interpreted by me: Chest x-ray definitely shows evidence of edema but pleural effusion CT angio of the chest was ordered in coordination with discussion with Dr. Rodrigez EKG: Sinus rhythm rate of 85 she has a left bundle branch block no ST segment elevation that would be concerning for a STEMI. EKG interpretation is noted and agreed to in the EMR. The interpretation of this patient's EKG contributed directly to the care and management of this patient. Previous Documentation Reviewed: None available or applicable at this time. ED Course: Patient presenting with shortness of breath and orthopnea that started suddenly when she went to go to bed patient initially had a troponin elevation of 22 was suspecting that this was likely secondary to the pulmonary edema however delta troponin came back at 43 so is possible this could be an NSTEMI causing the heart failure although she has no chest pain whatsoever but the other concerns could have PEF because this is after discussion with Dr. Rodrigez we went ahead and placed a CT angio of the chest patient will still be admitted however. 0633: On my review and interpretation patient CT angio of the chest I do not see any obvious massive pulmonary embolism. Elevated troponin especially with the delta troponin doubling likely from NSTEMI leading to new onset heart failure This note was made utilizing voice recognition software. All attempts were made to correct spelling or other errors prior to note completion. However, due to the fast-paced nature of emergency medicine, some errors may still be present. Lab Data Labs: Laboratory Results - last 24 hr 03/15/25 03/15/25 02:52 04:57 WBC 9.5 RBC 3.82 L Hgb 10.5 L Hct 32.2 L MCV 84.3 MCH 27.5 MCHC 32.6 RDW Std Deviation 47.4 H RDW Coeff of Adalid 15.5 H Plt Count 296 MPV 8.9 Immature Gran % (Auto) 1.100 H Neut % (Auto) 66.0 Lymph % (Auto) 21.0 [place] % (Auto) 7.8 Eos % (Auto) 3.6 Baso % (Auto) 0.5 Absolute Neuts (auto) 6.3 Absolute Lymphs (auto) 1.99 Nucleated RBC % 0 Sodium 134 Potassium 3.8 Chloride 98 Carbon Dioxide 25.4 Anion Gap 10 BUN 20 H Creatinine 0.60 L Estim Creat Clear Calc 60.39 Est GFR (MDRD) Non-Af 89 BUN/Creatinine Ratio 33.1 H Glucose 242 H Lactic Acid 1.1 Calcium 9.0 Total Bilirubin 0.33 AST 36 H ALT 42 H Alkaline Phosphatase 73 Troponin T High Sens 22 H Troponin T Hi Sens 2 Hr 43 H NT pro BNP II 1074 Total Protein 7.3 Albumin 3.6 Globulin 3.7 Albumin/Globulin Ratio 1.0 Radiography Diagnostic Testing: Clinical Impression(s) from Imaging Studies Chest X-Ray 03/15/25 03:10 IMPRESSION: Interstitial opacifications and left pleural effusion suggest pulmonary vascular congestion but could also be seen with a diffuse inflammatory process. Follow-up recommended to ensure resolution. Right lower lung zone nodule. New since the prior study, advise follow up. [facility] T[facility] Chief Complaint: Shortness of Breath ED Provider: Velasquez Elise Dx/Rx/DC Orders Clinical Impression: New onset of congestive heart failure, Orthopnea, Dyspnea, Non-ST elevation [place] (NSTEMI), Left bundle branch block Primary Care Provider: Marilee Jiang
--- OUTSIDE RECORDS SUMMARY | 2025-03-15 06:28 | XMS RPT_ITS | CCD ---
Author Organization [facility] CliniSyms Care Team Providers Care Drawing Instructor Name Role Phone Dr. Marilee Jiang Primary Care Provider Dr. Marilee Jiang Referring Provider Ranjit SEAT SCOOPER MACHINE, SEAT SCOOPER MACHINE-C Eloisa Holman Attending Provider [phone] Dr. Marilee Jiang Primary Care Provider Dr. Vamsi Yost Attending Provider Dr. Marilee Jiang Referring Provider Ranjit SEAT SCOOPER MACHINE, SEAT SCOOPER MACHINE-C Eloisa Holman Attending Provider [phone] Dr. Marilee Jiang Primary Care Provider Dr. Marilee Jiang Referring Provider Dr. Darryl Lackey Attending Provider [phone] Dr. Marilee Jiang DO Primary Care Provider [phone] Marilee Jiang DO Attending Provider Dr. Marilee Jiang DO Referring Provider Dr. Todd Lobo MD Attending Provider Dr. Gem Gamboa MD Attending Provider Dr. Gem Gamboa MD Referring Provider Dr. Marilee Jiang DO Primary Care Provider [phone] Marilee Jiang DO Attending Provider Dr. Marilee Jiang DO Referring Provider Dr. Darryl Lackey DO Attending Provider Dr. Jay Patel DO Emergency Provider Malnancy DO, Dr. Hunt Primary Care Provider [phone] Jorge DO, Dr. Thompson Attending Provider Friend DO, Dr. Andrews Referring Provider Apolinar DO, Dr. Hunt Primary Care Provider [phone] Apolinar PIÑA, Dr. Hunt Referring Provider Apolinar DO, Dr. Hunt Attending Provider Cooper SOSA, Dr. Rabago Attending Provider Alex SEAT SCOOPER MACHINE-C, Mya Attending Provider Apolinar DO, Dr. Hunt Primary Care Provider [phone] Ziyad DO, Dr. Andrews Attending Provider Malys, Marilee Attending Unavailable Malys, Marilee Primary Care Unavailable Malys, Marilee Referring Unavailable Malys, Marilee Primary Care Unavailable Yamil, Richmond Attending Unavailable Malys, Marilee Primary Care Unavailable [...] Facility (20 sources) Aspirin Drug Allergy 2 [facility] (20 sources) Codeine Drug Allergy 2 [facility] (20 sources) levoFLOXacin Drug Allergy 2 [facility] (20 sources) Nonsteroidal Anti-inflammatory Compounds Allergy to substance 2 [facility] (20 sources) Penicillins Allergy to substance 2 [facility] (20 sources) Solifenacin Drug Allergy 2 [facility] (20 sources) Sulfonamides (Antibiotic) Allergy to substance 2 [facility] (8 sources) oxyCODONE Drug Allergy 4 [facility] (1 source) Aspirin Drug Allergy 5 [facility] (1 source) Codeine Drug Allergy 5 [facility] (1 source) levoFLOXacin Drug Allergy 5 [facility] (1 source) NSAIDs Drug allergy (disorder) 5 [facility] (1 source) oxyCODONE Drug Allergy 5 [facility] (1 source) Penicillins Drug allergy (disorder) 5 [facility] (1 source) Solifenacin Drug Allergy 5 [facility] (1 source) Sulfonamides (Antibiotic) Drug allergy (disorder) 5 [facility] Repository Medications Current Medications Medication [...] EACH PO DAILY November 07, 2017 11:00pm Glade-3 Fatty Acids-Fish Oil (Fish Oil) 1 EACH capsule (20 sources) Start: 11-08-2017 Glade-3 Fatty Acids-Fish Oil (Fish Oil) 1 EACH capsule Active 1 NMA PO DAILY November 08, 2017 12:00am supplement Start: 11-08-2017 Glade-3 Fatty Acids-Fish Oil (Fish Oil) 1 EACH capsule Active 1 NMA PO DAILY November 08, 2017 12:00am Start: 11-08-2017 Glade-3 Fatty Acids-Fish Oil (Fish Oil) 1 EACH capsule Active 1 EACH PO DAILY November 08, 2017 12:00am Start: 11-08-2017 Glade-3 Fatty Acids-Fish Oil (Fish Oil) 1 EACH [...] Interpretation Reference Range Facility MR/Kerrie 02-27-2025 /[facility] [address] [place] [address], [address] [place] [address] OFFICE VISIT Date of Service: 02/27/25 MR#: [id number] Acct: [id number] Name: LAZARA SHANE Rep #: [id number] : 1940 Provider: Dr. Gem Jones i, MD Age/Sex: 84/F Location: [facility] Status: Signed Intake Vital Signs 09/14/24 13:11 02/27/25 15:14 Height 5 ft 2 in 5 ft 2 in Weight: 210 lb BMI 38.4 BP 140/86 H Pulse 90 Intake Visit Reasons: UTI. 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 Normal [facility] Urine Cultureon 12-31-2024 [facility] Enterococcus faecali s Beta Lactamase-Reportable Negative [place] Count >100,000 Enterococcus faecalis: REACTION Ampicillin Islt PAULETTE <=2 S Ciprofloxacin Islt PAULETTE <=0.5 Gentamicin Synergy Susc Islt SYN-S S levoFLOXacin Islt PAULETTE 1 S Linezolid Islt PAULETTE 2 S Nitrofurantoin Islt PAULETTE <=16 S Streptomycin High Pot Susc Islt SYN-S S Tetracycline Islt PAULETTE <=1 S Vancomycin Islt PAULETTE 1 S Normal [facility] Comment on above: Performed By: #### M 100.2730 ####[facility] [address] [place], [address] Urine cultureOrdered By: Yanique Jiang on 12-29-2024 Bacteria identified Cx Nom (U) Enterococcus faecalis Abnormal [facility] Urine Cultureon 11-30-2024 [facility] Enterococcus faecali s [place] Count >100,000 Enterococcus faecalis: REACTION Ampicillin Islt PAULETTE <=2 Ciprofloxacin Islt PAULETTE <=0.5 S Gentamicin Synergy Susc Islt SYN-S S levoFLOXacin Islt PAULETTE 1 S Linezolid Islt PAULETTE 2 S Nitrofurantoin Islt PAULETTE <=16 S Streptomycin High Pot Susc Islt SYN-S S Tetracycline Islt PAULETTE <=1 S Vancomycin Islt PAULETTE 1 S Normal [facility] Comment on above: Performed By: #### M 100.2200 ####[facility] [address] [place], [place], [id number] Urine cultureOrdered By: Tabitha Johnson on 11-28-2024 Bacteria identified Cx Nom (U) Enterococcus faecalis Abnormal [facility] Esophagus Dual Contraston Esophagus Dual Contrast [facility] Imaging Services [address] [place], [place] [address] Esophagus Dual Contrast MR#: [id number] Acct: [id number] Name: LAZARA SHANE Rep #: [id number] : 1940 F 84 From: Brenton clement MD PCP: Dr. Marilee Jiang DO Status: REG CLI Study: Esophagus Dual Contrast Date of Exam: 10/31/24 Exam# [id number] Ordering Dr: Darryl Lackey DO EXAM: Air-contrast [...] Dual Contrast IMPRESSION: Gastroesophageal reflux. Reading Location: [place] [address] CC: Dr. Marilee Jiang DO; Darryl Lackey DO Set Up Mechanic Coil Winding Machines: Signed Normal [facility] Urine Cultureon 10-18-2024 [facility] Enterococcus faecali s [place] Count >100,000 Enterococcus faecalis: REACTION Ampicillin Islt PAULETTE <=2 Ciprofloxacin Islt PAULETTE <=0.5 S Gentamicin Synergy Susc Islt SYN-S S levoFLOXacin Islt PAULETTE 1 S Linezolid Islt PAULETTE 2 S Nitrofurantoin Islt PAULETTE <=16 S Streptomycin High Pot Susc Islt SYN-S S Tetracycline Islt PAULETTE <=1 S Vancomycin Islt PAULETTE 1 S Normal [facility] Comment on above: Performed By: #### M 100.4782 ####[facility] [address] [place], [address] Urine cultureOrdered By: Yanique Jiang on 10-16-2024 Bacteria identified Cx Nom (U) Enterococcus faecalis Abnormal [facility] Emergency Department Summary on 09-14-2024 Emergency Department Summary [facility] Medical Records Department [address] [place] [address] Emergency Department Summary 09/14/24 MR#: [id number] Acct: [id number] Name: LAZARA SHANE Rep #: [id number] : 1940 84 From: Jay Patel DO [...] bladder changes. Patient denies any saddle anesthesia. [facility] Medical History Diarrhea Diabetes Gastroparesis Unsteady [...] Reaction Status Date / Time levofloxacin ([facility]) Allergy Mild rash Verified 09/14/24 13:11 oxycodone [...] Ca (more content not included)... Normal [facility] Lumbar Spine 2 or 3 Viewson 09-14-2024 Lumbar Spine 2 or 3 Views [facility] Imaging Services [address] [place] [id number] Lumbar Spine 2 or 3 Views MR#: [id number] Acct: [id number] Name: LAZARA SHANE Rep #: [id number] : 1940 F 84 From: Jabier Morales DO PCP: Dr. Marilee Jiang DO Status: REG ER Study: Lumbar Spine 2 or 3 Views Date of Exam: Exam# [id number] Ordering Dr: Jay Patel DO PROCEDURE: LUMBAR [...] detected. Other findings as above Reading [facility] CC: Dr. Jay Patel, DO; Dr. aMrilee Jiang DO Set Up Mechanic Coil Winding Machines: Signed Normal [facility] Gastroenterology Visit Repor ton 08-28-2024 Gastroenterology Visit Report [facility] [address] [place] [address] OFFICE VISIT Date of Service: 08/28/24 MR#: [id number] Acct: [id number] Name: LAZARA SHANE Rep #: [id number] : 1940 Provider: Darryl Lackey DO Age/Sex: 84/F Location: [facility] Status: Signed Intake Vital Signs 01/02/24 18:01 [...] who diagnosed IBS.. Worst during trip in [place] with hospitalization for what she thought was [...] se (more content not included)... Normal [facility] Vitamin D 1,25-Dihydroxyon 0 07-21-2024 VIT D 1,25 DIHY 70.5 pg/mL Normal 24.8-81.5 [facility] Comment on above: Result Comment: Perf ormed at: [facility] - [facility] [address] [id number] Tissue Specialist: Saran Huynh MD, Phone: [phone] Performed By: #### L 3300.0960, L501.6720, L500.4050, L501.21009, L100.0100, L506.0400 ####[facility] [address] [place], [place], [id number] 1,25-dihydroxyvitamin D3 [Ma ss/Vol]Ordered By: Marilee Jiang on 07-16-2024 Vitamin D 1,25-Dihydroxy 70.5 pg/mL 24.8-81.5 [facility] Comment on above: Performed at: [facility] - [facility] [address] [id number] Director: Saran Huynh MD, Phone: [phone] Absolute lymphocyte countOrd ered By: Marilee Jiang on 07-16-2024 Lymphocytes Auto (Unsp spec) [#/Vol] 2.02 10*3/uL 0.83-4.51 [facility] Absolute neutrophil countOrd ered By: Marilee Jiang on 07-16-2024 Neutrophils (Bld) [#/Vol] 2.8 10*3/uL 2.0-7.7 [facility] Anion gap in Serum or Plasma Ordered By: Marilee Jiang on 07-16-2024 Anion gap [Moles/Vol] 10 mmol/L 5-15 [facility] Atypical lymphocyte percenta geOrdered By: Marilee Jiang on 03-26-2025 Atypical Lymphocytes 2+ % [facility] Automated lymphocyte count a s percentage of total leukocytesOrdered By: Marilee Jiang on 07-16-2024 Lymphocytes/100 WBC Auto (Unsp spec) 34.1 % 19-41 [facility] BUN/creatinine ratioOrdered By: Marilee Jiang on 07-16-2024 Urea nitrogen/Creatinine [Mass ratio] 29.9 mg/mg High 10-20 [facility] Basophil percentageOrdered B y: Marilee Jiang on 07-16-2024 Basophils/100 WBC (Bld) 0.7 % 0-1 [facility] Bilirubin, totalOrdered By: Marilee Jiang on 07-16-2024 Bilirubin [Mass/Vol] 0.28 mg/dL 0.00-1.30 [facility] CBC W/Diff, Automatedon 06-22 ATYPICAL LYMPH 2+ Normal [facility] Comment on above: Performed By: #### L 3300.0960, L501.9520, L500.4050, L501.85207, L100.0100, L506.0400 ####[facility] [address] [place], [place], [id number] Carbon dioxide, total [Moles /volume] in Central venous bloodOrdered By: Marilee Stevenancy on 07-16-2024 CO2 [Moles/Vol] 25.2 mmol/L 21.0-32.0 [facility] Chloride assayOrdered By: Vashti Jiang on 07-16-2024 Chloride [Moles/Vol] 98 mmol/L 98-108 [facility] Comprehensive Metabolic Prof ilon 07-16-2024 Albumin [Mass/Vol] 3.9 g/dL Normal 3.4-4.8 [facility] Comment on above: Performed By: #### L 3300.0960, L501.9520, L500.4050, L501.26774, L100.0100, L506.0400 ####[facility] [address] [place], [address] Albumin/Globulin [Mass ratio] 1.0 {ratio} Normal 0.9-2.4 [facility] Comment on above: Performed By: #### L 3300.0960, L501.9520, L500.4050, L501.05139, L100.0100, L506.0400 ####[facility] [address] [place], [address] ALK PHOS 72 U/L Normal 35-104 [facility] Comment on above: Performed By: #### L 3300.0960, L501.9520, L500.4050, L501.56538, L100.0100, L506.0400 ####[facility] [address] [place], [address] ALT [Catalytic activity/Vol] 20 U/L Normal <=34 [facility] Comment on above: Performed By: #### L 3300.0960, L501.9520, L500.4050, L501.24752, L100.0100, L506.0400 ####[facility] [address] [place], [address] AST [Catalytic activity/Vol] 31 U/L Normal <=31 [facility] Comment on above: Performed By: #### L 3300.0960, L501.9520, L500.4050, L501.62999, L100.0100, L506.0400 ####[facility] [address] [place], [address] Bilirubin [Mass/Vol] 0.28 mg/dL Normal 0.00-1.30 [facility] Comment on above: Performed By: #### L 3300.0960, L501.9520, L500.4050, L501.71307, L100.0100, L506.0400 ####[facility] [address] [place], [address] BUN/CRE 29.9 RATIO High 10-20 [facility] Comment on above: Performed By: #### L 3300.0960, L501.9520, L500.4050, L501.43233, L100.0100, L506.0400 ####[facility] [address] [place], [address] Calcium [Mass/Vol] 9.5 mg/dL Normal 7.6-11.0 [facility] Comment on above: Performed By: #### L 3300.0960, L501.9520, L500.4050, L501.36241, L100.0100, L506.0400 ####[facility] [address] [place], [address] Chloride [Moles/Vol] 98 mmol/L Normal 98-108 [facility] Comment on above: Performed By: #### L 3300.0960, L501.9520, L500.4050, L501.58660, L100.0100, L506.0400 ####[facility] [address] [place], [address] CO2 [Moles/Vol] 25.2 mmol/L Normal 21.0-32.0 [facility] Comment on above: Performed By: #### L 3300.0960, L501.9520, L500.4050, L501.25581, L100.0100, L506.0400 ####[facility] [address] [place], [address] Creatinine [Mass/Vol] 0.53 mg/dL Low 0.70-1.20 [facility] Comment on above: Performed By: #### L 3300.0960, L501.9520, L500.4050, L501.34006, L100.0100, L506.0400 ####[facility] [address] [place], [address] GAP 10 Normal 5-15 [facility] Comment on above: Performed By: #### L 3300.0960, L501.9520, L500.4050, L501.30223, L100.0100, L506.0400 ####[facility] [address] [place], [address] GFR/1.73 sq M.predicted among non-blacks MDRD (S/P/Bld) [Vol rate/Area] 92 mL/min/{1.73_m2} Normal >60 [facility] Comment on above: Result Comment: mL/m in/1.73m2 CKD-EPI Creatinine Equation (2020) Performed By: #### L 3300.0960, L501.9520, L500.4050, L501.51625, L100.0100, L506.0400 ####[facility] [address] [place], [address] Globulin (S) [Mass/Vol] 3.8 g/dL Normal 2.2-4.2 [facility] Comment on above: Performed By: #### L 3300.0960, L501.9520, L500.4050, L501.87788, L100.0100, L506.0400 ####[facility] [address] [place], [address] Glucose [Mass/Vol] 110 mg/dL High 70-99 [facility] Comment on above: Performed By: #### L 3300.0960, L501.9520, L500.4050, L501.42943, L100.0100, L506.0400 ####[facility] [address] [place], [address] Potassium [Moles/Vol] 4.5 mmol/L Normal 3.3-5.1 [facility] Comment on above: Performed By: #### L 3300.0960, L501.9520, L500.4050, L501.75544, L100.0100, L506.0400 ####[facility] [address] [place], [address] Sodium [Moles/Vol] 133 mmol/L Normal 133-145 [facility] Comment on above: Performed By: #### L 3300.0960, L501.9520, L500.4050, L501.68353, L100.0100, L506.0400 ####[facility] [address] [place], [address] T PROT 7.6 g/dL Normal 5.9-8.4 [facility] Comment on above: Performed By: #### L 3300.0960, L501.9520, L500.4050, L501.93078, L100.0100, L506.0400 ####[facility] [address] [place], [address] Urea nitrogen [Mass/Vol] 16 mg/dL Normal 4-19 [facility] Comment on above: Performed By: #### L 3300.0960, L501.9520, L500.4050, L501.50480, L100.0100, L506.0400 ####[facility] [address] [place], [address] Eosinophil percentageOrdered By: Marilee Jiang on 07-16-2024 Eosinophils/100 WBC (Bld) 3.9 % 0-5 [facility] Erythrocyte distribution wid th ratioOrdered By: Marilee Jiang on 07-16-2024 Erythrocyte distribution width (RBC) [Ratio] 17.4 % High 11.6-14.6 [facility] Erythrocyte distribution wid th standard deviationOrdered By: Marilee Jiang on 07-16-2024 Erythrocyte distribution width (RBC) [Entitic vol] 50.0 fL High 35.1-43.9 [facility] Erythrocyte distribution width (RBC) [Ratio] 50.0 fl High 35.1-43.9 [facility] Free T3on 07-16-2024 Free T3 [Mass/Vol] 2.8 pg/mL Normal 2.18-3.98 [facility] Comment on above: Performed By: #### L 3300.0960, L501.9120, L500.4050, L501.85981, L100.0100, L506.0400 ####[facility] [address] [place], [address] Free B2Pdmwzze By: Marilee herman on 07-16-2024 Free T3 [Mass/Vol] 2.8 pg/mL 2.18-3.98 [facility] Free Triiodothyronine (T3) pg/dL 2.8 pg/mL 2.18-3.98 [facility] GFR/1.73 sq M.predicted chay g non-blacks MDRD (S/P/Bld) [Vol rate/Area]Ordered By: Marilee Jiang on 07-16-2024 Estimated GFR (MDRD) Non-Af Amer 92 >60 [facility] Comment on above: mL/min/1.73m2 CKD-EP I Creatinine Equation (2020) Glomerular filtration rate ( GFR) estimation/1.73 sq m using serum, plasma, or whole bOrdered By: Marilee Jiang on 07-16-2024 GFR/1.73 sq M.predicted among non-blacks MDRD (S/P/Bld) [Vol rate/Area] 92 mL/min/{1.73_m2} >60 [facility] Comment on above: mL/min/1.73m2 CKD-EP I Creatinine Equation (2020) Hematocrit Auto (Bld) [Volum e fraction]Ordered By: Marilee Jiang on 07-16-2024 Hematocrit (Bld) [Volume fraction] 34.9 % Low 37-47 [facility] Hemoglobin measurementOrdere d By: Marilee Jiang on 07-16-2024 Hemoglobin (Bld) [Mass/Vol] 11.2 g/dL Low 12.0-15.0 [facility] Immature granulocytes/100 WB C Auto (Bld)Ordered By: Marilee Jiang on 07-16-2024 Immature granulocytes/100 WBC (Bld) 0.500 % 0.0-0.9 [facility] Comment on above: IG% - Immature Granu locytes (promyelocytes, myelocytes and metamyelocytes) > 1% indicates that a LEFT SHIFT is Present. Laboratory - Chemistry and C hemistry - challengeOrdered By: Marilee Jiang on 07-16-2024 AST [Catalytic activity/Vol] 31 U/L <32 [facility] Lymphocytes Auto (Unsp spec) [#/Vol]Ordered By: Marilee Jiang on 07-16-2024 Lymphocytes (Bld) [#/Vol] 2.02 10*3/uL 0.83-4.51 [facility] Lymphocytes/100 WBC Auto (Un sp spec)Ordered By: Marilee Jiang on 07-16-2024 Lymphocytes/100 WBC (Bld) 34.1 % 19-41 [facility] MCV (mean corpuscular volume ) determinationOrdered By: Marilee Jiang on 07-16-2024 MCV (RBC) [Entitic vol] 79.3 fL Low 81-99 [facility] Mean corpuscular hemoglobin (MCH) determinationOrdered By: Marilee Jiang on 07-16-2024 MCH (RBC) [Entitic mass] 25.5 pg Low 27.0-32.0 [facility] Mean corpuscular hemoglobin concentration (MCHC) determinationOrdered By: Marilee Jiang on 07-16-2024 MCHC (RBC) [Mass/Vol] 32.1 g/dL 32-36 [facility] Mean platelet volume determi nationOrdered By: Marilee Jiang on 07-16-2024 Platelet mean volume (Bld) [Entitic vol] 9.3 fL 6.2-12.0 [facility] Monocyte percentageOrdered B y: Marilee Jiang on 07-16-2024 Monocytes/100 WBC (Bld) 14.5 % High 0-10 [facility] Neutrophil percentageOrdered By: Marilee Jiang on 07-16-2024 Neutrophils/100 WBC (Bld) 46.3 % Low 47-70 [facility] Nucleated red blood cell per centageOrdered By: Marilee Jiang on 07-16-2024 Nucleated RBC/100 WBC (Bld) [Ratio] 0 % 0-5 [facility] Platelet countOrdered By: Vashti Jiang on 07-16-2024 Platelets (Bld) [#/Vol] 303 10*3/uL 150-450 [facility] Potassium (Unsp spec) [Mass/ Vol]Ordered By: Marilee Jiang on 07-16-2024 Potassium [Moles/Vol] 4.5 mmol/L 3.3-5.1 [facility] Potassium measurement (mass/ volume)Ordered By: Marilee Jiang on 07-16-2024 Potassium (Unsp spec) [Mass/Vol] 4.5 mmol/L 3.3-5.1 [facility] RBC Auto (Bld) [#/Vol]Ordere d By: Marilee Jiang on 07-16-2024 RBC (Bld) [#/Vol] 4.40 10*6/uL 4.2-5.4 [facility] Serum creatinine measurement (mass/volume)Ordered By: Marilee Jiang on 07-16-2024 Creatinine [Mass/Vol] 0.53 mg/dL Low 0.70-1.20 [facility] Serum globulin measurementOr dered By: Marilee Jiang on 07-16-2024 Globulin (S) [Mass/Vol] 3.8 g/dL 2.2-4.2 [facility] Serum glucose measurement (m ass/volume)Ordered By: Marilee Jiang on 07-16-2024 Glucose [Mass/Vol] 110 mg/dL High 70-99 [facility] Serum or plasma alanine woodard otransferase (ALT) measurementOrdered By: Marilee Jiang on 07-16-2024 ALT [Catalytic activity/Vol] 20 U/L <35 [facility] Serum or plasma albumin bhavani urement (mass/volume)Ordered By: Marilee Jiang on 07-16-2024 Albumin [Mass/Vol] 3.9 g/dL 3.4-4.8 [facility] Serum or plasma albumin/glob ulin mass ratioOrdered By: Marilee Jiang on 07-16-2024 Albumin/Globulin [Mass ratio] 1.0 {ratio} 0.9-2.4 [facility] Serum or plasma alkaline keenan sphatase measurementOrdered By: Marilee Jiang on 07-16-2024 ALP [Catalytic activity/Vol] 72 U/L 35-104 [facility] Serum or plasma calcitriol m easurement (mass/volume)Ordered By: Marilee Jiang on 07-16-2024 1,25-dihydroxyvitamin D3 [Mass/Vol] 70.5 pg/mL 24.8-81.5 [facility] Comment on above: Performed at: [address] [id number] Director: Saran Huynh MD, Phone: [phone] Serum or plasma calcium bhavani urement (mass/volume)Ordered By: Marilee Jiang on 07-16-2024 Calcium [Mass/Vol] 9.5 mg/dL 7.6-11.0 [facility] Serum or plasma urea nitroge n measurement (mass/volume)Ordered By: Marilee Jiang on 07-16-2024 Urea nitrogen [Mass/Vol] 16 mg/dL 4-19 [facility] Sodium levelOrdered By: Marilee Jiang on 07-16-2024 Sodium [Moles/Vol] 133 mmol/L 133-145 [facility] T4 Free Directon 07-16-2024 T4 FREE DIRECT 1.20 ng/dL Normal 0.76-1.46 [facility] Comment on above: Performed By: #### L 3300.0960, L501.9520, L500.4050, L501.29348, L100.0100, L506.0400 ####[facility] [address] [place], [place], [address] T4 freeOrdered By: Marilee Milner s on 07-16-2024 Free T4 [Mass/Vol] 1.20 ng/dL 0.76-1.46 [facility] TSH DL <= 0.005 mIU/L QnOrde red By: Marilee Jiang on 07-16-2024 Thyroid Stimulating Hormone (TSH) 2.270 uIU/mL 0.300-4.20 0 [facility] TSH Qn 2.270 uIU/mL 0.300-4.20 0 [facility] Thyroid Stim Hormone (TSH)on 07-16-2024 TSH 2.270 uIU/mL Normal 0.300-4.20 0 [facility] Comment on above: Performed By: #### L 3300.0960, L501.9520, L500.4050, L501.72244, L100.0100, L506.0400 ####[facility] [facility] [address] [place], [address] Total proteinOrdered By: Yanique Jiang on 07-16-2024 Protein [Mass/Vol] 7.6 g/dL 5.9-8.4 [facility] White blood cell (WBC) count Ordered By: Marilee Jiang on 07-16-2024 WBC (Bld) [#/Vol] 5.9 10*3/uL 4.4-11.0 [facility] Abdomen/Pelvis without Conto n 06-17-2024 Abdomen/Pelvis without Cont [facility] Imaging Services [address] [place], [place] [address] Abdomen/Pelvis without Cont MR#: [id number] Acct: [id number] Name: LAZARA SHANE Rep #: [id number] : 1940 F 83 From: Brenton clement MD PCP: Dr. Marilee Jiang, DO Status: REG CLI Study: Abdomen/Pelvis without Cont Date of Exam: 05/25 09/14 Exam# [id number] Ordering Dr: Gem Gamboa MD PROCEDURE: ABDOMEN/PELVIS [...] use of iterative reconstruction technique). Reading Location: [id number] CC: Dr. Gem Gamboa MD; Dr. Marilee Jiang DO Set Up Mechanic Coil Winding Machines: Signed Normal [facility] Basic Metabolic Profile (BMP )on 06-03-2024 BUN/CRE 20.4 RATIO High 10-20 [facility] Comment on above: Performed By: #### L 500.2500 ####[facility] [address] [place], [address] CA,Total 10.0 mg/dL Normal 8.5-10.1 [facility] Comment on above: Performed By: #### L 500.2500 ####[facility] [address] [place], [address] Chloride [Moles/Vol] 101 mmol/L Normal 98-107 [facility] Comment on above: Performed By: #### L 500.2500 ####[facility] [address] [place], [address] CO2 [Moles/Vol] 29.0 mmol/L Normal 21.0-32.0 [facility] Comment on above: Performed By: #### L 500.2500 ####[facility] [address] [place], [address] Creatinine [Mass/Vol] 0.59 mg/dL Normal 0.55-1.02 [facility] Comment on above: Result Comment: The validity of the calculated GFR GFRAA in patients over 70 years has not been determined. Clinical correlation is essential. Performed By: #### L 500.2500 ####[facility] [address] [place], [address] EST GFR - AA 126 mL/min Normal >60 [facility] Comment on above: Result Comment: Afri can Czech GFR Calc Performed By: #### L 500.2500 ####[facility] [address] [place], [address] GAP 8 Normal 5-15 [facility] Comment on above: Performed By: #### L 500.2500 ####[facility] [address] [place], [address] GFR/1.73 sq M.predicted among non-blacks MDRD (S/P/Bld) [Vol rate/Area] 104 mL/min/{1.73_m2} Normal >60 [facility] Comment on above: Result Comment: Non- GFR Calc Performed By: #### L 500.2500 ####[facility] [address] [place], [address] Glucose [Mass/Vol] 150 mg/dL High 74-106 [facility] Comment on above: Result Comment: Fast ing Glucose result greater than or equal to 126 mg/dL suggests DIABETES MELLITUS per A.D.A. criteria. Performed By: #### L 500.2500 ####[facility] [address] [place], [address] Potassium [Moles/Vol] 3.3 mmol/L Low 3.5-5.1 [facility] Comment on above: Performed By: #### L 500.2500 ####[facility] [address] [place], [place], [address] Sodium [Moles/Vol] 138 mmol/L Normal 136-145 [facility] Comment on above: Performed By: #### L 500.2500 ####[facility] [address] [place], [place], [address] Urea nitrogen [Mass/Vol] 12 mg/dL Normal 7-18 [facility] Comment on above: Performed By: #### L 500.2500 ####[facility] [address] [place], [place], [address] Blood urea nitrogen (BUN)/cr eatinine ratioOrdered By: Gem Gamboa on 06-03-2024 Urea nitrogen/Creatinine [Mass ratio] 20.4 mg/mg High 10-20 [facility] Carbon dioxide measurementOr dered By: Gem Gamboa on 06-03-2024 CO2 [Moles/Vol] 29.0 mmol/L 21.0-32.0 [facility] Chloride measurementOrdered By: Gem Gamboa on 06-03-2024 Chloride [Moles/Vol] 101 mmol/L 98-107 [facility] Estimated glomerular filtrat ion rate (GFR) AmericanOrdered By: Gem Gamboa on 06-03-2024 Estimated GFR (MDRD) Amer 126 mL/min >60 [facility] Comment on above: GFR Calc Glomerular filtration rate ( GFR) estimationOrdered By: Gem Gamboa on 06-03-2024 Estimated GFR (MDRD) Non-Af Amer 104 mL/min >60 [facility] Comment on above: Non- GFR Calc GFR/1.73 sq M.predicted among non-blacks MDRD (S/P/Bld) [Vol rate/Area] 104 mL/min/{1.73_m2} >60 [facility] Comment on above: Non- GFR Calc Glucose measurementOrdered B y: Gem Gamboa on 06-03-2024 Glucose [Mass/Vol] 150 mg/dL High 74-106 [facility] Comment on above: Fasting Glucose resu lt greater than or equal to 126 mg/dL suggests DIABETES MELLITUS per A.D.A. criteria. Potassium measurementOrdered By: Gem Gamboa on 06-03-2024 Potassium [Moles/Vol] 3.3 mmol/L Low 3.5-5.1 [facility] Serum anion gap measurementO rdered By: Gem Gamboa on 06-03-2024 Anion gap [Moles/Vol] 8 mmol/L 5-15 [facility] Serum or plasma calcium bhavani urement (mass/volume)Ordered By: Gem Gamboa on 06-03-2024 Calcium [Mass/Vol] 10.0 mg/dL 8.5-10.1 [facility] Serum or plasma creatinine m easurement (mass/volume)Ordered By: Gem Gamboa on 06-03-2024 Creatinine [Mass/Vol] 0.59 mg/dL 0.55-1.02 [facility] Comment on above: The validity of the calculated GFR & GFRAA in patients over 70 years has not been determined. Clinical correlation is essential. Serum or plasma urea nitroge n measurement (mass/volume)Ordered By: Gem Gamboa on 06-03-2024 Urea nitrogen [Mass/Vol] 12 mg/dL 11-07 [facility] Sodium levelOrdered By: Susan Gamboa on 06-03-2024 Sodium [Moles/Vol] 138 mmol/L 136-145 [facility] Abdomen/Pelvis WITH Contrast on 05-13-2024 Abdomen/Pelvis WITH Contrast [facility] Imaging Services [address], [place] [address] Abdomen/Pelvis WITH Contrast MR#: [id number] Acct: [id number] Name: LAZARA SHANE Rep #: [id number] : 1940 F 83 From: Marcia pulido MD PCP: Dr. Marilee Jiang DO Status: REG CLI Study: Abdomen/Pelvis WITH Contrast Date of Exam: Exam# [id number] Ordering Dr: Marilee Jiang DO [id number] HISTORY: ABD PAIN,WEIGHTLOSS. TECHNIQUE: Helically acquired images [...] EST , CC: Dr. 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 [address] Echo Complete 05/12/24 1304 MR#: [id number] Acct: [id number] Name: LAZARA SHANE Rep #: [id number] : 1940 83 From: Todd Lobo MD Attending Dr: Dr. Marilee Jiang, Status: REG CL I Ordering Dr: Marilee Jiang DO Date: 05/12/24 Location: [facility] Sex: F C Admitted: Reason For [...] Date Dictated: 05/12/24 1304 Date Transcribed: 05/12/241621 [employer] Up Mechan[employer] Coil Winding Machines: Signed Normal [facility] Protein Electroph, Son 05-07 Albumin [Mass/Vol] 3.2 g/dL Normal 2.9-4.4 [facility] Comment on above: Performed By: #### L 3100.3450, , ####[facility] [address] [place], [address] Albumin/Globulin [Mass ratio] 0.8 {ratio} Normal 0.7-1.7 [facility] Comment on above: Performed By: #### L 3100.3450, M1, ####[facility] [address] [place], [address] ALPHA-1 GLOBUL 0.3 g/dL Normal 0.0-0.4 [facility] Comment on above: Performed By: #### L 3100.3450, M1.2199, L4 ####[facility] [address] [place], [address] ALPHA-2 GLOBUL 0.9 g/dL Normal 0.4-1.0 [facility] Comment on above: Performed By: #### L 3100.3450, M1, ####[facility] [address] [place], [address] BETA GLOBULIN 1.2 g/dL Normal 0.7-1.3 [facility] Comment on above: Performed By: #### L 3100.3450, M100.2200, L400.2010 ####[facility] [address] [place], [address] GAMMA GLOBULIN 1.4 g/dL Normal 0.4-1.8 [facility] Comment on above: Performed By: #### L 3100.3450, M100.2200, L400 ####[facility] [address] [place], [address] Globulin (S) [Mass/Vol] 3.9 g/dL Normal 2.2-3.9 [facility] Comment on above: Performed By: #### L 3100.3450, M100.2200, L400 ####[facility] [address] [place], [address] INTERPRETATION Comment Normal . [facility] Comment on above: Result Comment: Prot ein electrophoresis scan will follow via computer, mail, or spinning frame tender delivery. Performed By: #### L 3100.3450, M100.2200, L400 ####[facility] [address] [place], [address] M-SPIKE Not Observed Normal Not Observed [facility] Comment on above: Performed By: #### L 3100.3450, M100.2200, L400 ####[facility] [address] [place], [address] NOTE: Comment Normal . [facility] Comment on above: Result Comment: The SPE pattern appears unremarkable. Evidence of monoclonal protein is not apparent. Performed at: [address] [id number] Tissue Specialist: Scott Garcia PhD, Phone: [phone] Performed By: #### L 3100.3450, M100.2200, L400.2010 ####[facility] [address] [place], [place], [address] Protein [Mass/Vol] 7.1 g/dL Normal 6.0-8.5 [facility] Comment on above: Performed By: #### L 3100.3450, M100.2200, L400.2010 ####[facility] [address] [place], [place], [address] Urine Cultureon 05-07-2024 URC Below infection leve l. Mixed Gram Positive Organisms [place] Count 1000-10,000 [facility] Mixed contaminants. Submit a new specimen if indicated. Normal [facility] Comment on above: Performed By: #### L 3100.3450, M100.2200, L400.2010 ####[facility] [address] [place], [place], [address] Addendum DocumentOrdered By: Marilee Jiang on 05-05-2024 Protein Electrophoresis Note Comment . [facility] Comment on above: The SPE pattern appe ars unremarkable. Evidence ofmonoclonal protein is not apparent.Performed at: [facility] [address] [id number] Director: Scott Garcia PhD, Phone: [phone] Albumin Elph [Mass/Vol]Order ed By: Marilee Jiang on 05-05-2024 Albumin [Mass/Vol] 3.2 g/dL 2.9-4.4 [facility] Albumin/Globulin Elph [Mass ratio]Ordered By: Marilee Jiang on 05-05-2024 Albumin/Globulin (PEP) 0.8 0.7-1.7 [facility] Unoxk-5-tgbupuku measurement by protein electrophoresisOrdered By: Marilee Jiang on 05-05-2024 Zclts-6-Djuvtywvu 0.3 g/dL 0.0-0.4 [facility] Hfbyj-2-rzcdyuac measurement by protein electrophoresisOrdered By: Marilee Jiang on 05-05-2024 Pwuhb-8-Dshiureey 0.9 g/dL 0.4-1.0 [facility] Beta globulin Elph [Mass/Vol ]Ordered By: Marilee Jiang on 05-05-2024 Beta Globulins 1.2 g/dL 0.7-1.3 [facility] Bilirubin Test strip Ql (U)O rdered By: Marilee Jiang on 05-05-2024 Bilirubin Ql (U) Negative Negative [facility] Gamma globulin measurement b y protein electrophoresisOrdered By: Marilee Jiang on 05-05-2024 Gamma Globulins 1.4 g/dL 0.4-1.8 [facility] Globulin (S) [Mass/Vol]Order ed By: Marilee Jiang on 05-05-2024 Globulin (PEP) 3.9 g/dL 2.2-3.9 [facility] Glucose Ql (U)Ordered By: Vashti Jiang on 05-05-2024 Glucose (U) [Mass/Vol] 100 mg/dL High Normal [facility] Ketones Test strip Ql (U)Ord ered By: Marilee Jiang on 05-05-2024 Ketones Ql (U) Negative Negative [facility] Nitrite Test strip Ql (U)Ord ered By: Marilee Jiang on 05-05-2024 Nitrite Ql (U) Negative Negative [facility] Protein Fractions Elph [Inte rp]Ordered By: Marilee Jiang on 05-05-2024 Protein Electrophoresis Interpret Comment . [facility] Comment on above: Protein electrophore sis scan will follow via computer,mail, or spinning frame tender delivery. Protein Test strip Ql (U)Ord ered By: Marilee Jiang on 05-05-2024 Protein Ql (U) 30 mg/dl High Negative [facility] Protein.monoclonal Elph [Mas s/Vol]Ordered By: Marilee Jiang on 05-05-2024 Protein Electrophoresis M-Sree Not Observed g/dL Not Observed [facility] Serum or plasma protein bhavani urement (mass/volume)Ordered By: Marilee Jiang on 05-05-2024 Protein [Mass/Vol] 7.1 g/dL 6.0-8.5 [facility] Urinalysis, Routine (Dipstic k)on 05-05-2024 BILIRUBIN URINE Negative Normal Negative [facility] Comment on above: Order Comment: COLOR OF URINE MAY AFFECT DIPSTICK RESULTS. CLEAN CATCH Performed By: #### L 3100.3450, M100.2200, L400.2010 #### [facility] [address] [place], [address] Clarity (U) Sl. Cloudy Normal Clear [facility] Comment on above: Order Comment: COLOR OF URINE MAY AFFECT DIPSTICK RESULTS. CLEAN CATCH Performed By: #### L 3100.3450, M100.2200, L400.2010 #### [facility] [address] [place], [address] Color (U) Mulu Normal Yellow [facility] Comment on above: Order Comment: COLOR OF URINE MAY AFFECT DIPSTICK RESULTS. CLEAN CATCH Performed By: #### L 3100.3450, M100.2200, L4 #### [facility] [address] [place], [address] GLUCOSE, UR 100 mg/dl Abnormal Normal [facility] Comment on above: Order Comment: COLOR OF URINE MAY AFFECT DIPSTICK RESULTS. CLEAN CATCH Performed By: #### L 3100.3450, M100.2200, L4 #### [facility] [address] [place], [address] KETONE UR Negative Normal Negative [facility] Comment on above: Order Comment: COLOR OF URINE MAY AFFECT DIPSTICK RESULTS. CLEAN CATCH Performed By: #### L 3100.3450, M100.2200, L400 #### [facility] [address] [place], [address] LEUK ESTERASE 25 /ul Abnormal Negative [facility] Comment on above: Order Comment: COLOR OF URINE MAY AFFECT DIPSTICK RESULTS. CLEAN CATCH Performed By: #### L 3100.3450, M100.2200, L400 #### [facility] [address] [place], [address] Nitrite Ql (U) Negative Normal Negative [facility] Comment on above: Order Comment: COLOR OF URINE MAY AFFECT DIPSTICK RESULTS. CLEAN CATCH Performed By: #### L 3100.3450, M100.2200, L400.2010 #### [facility] [address] [place], [address] OCCULT BLOOD-UR 250 /ul Abnormal Negative [facility] Comment on above: Order Comment: COLOR OF URINE MAY AFFECT DIPSTICK RESULTS. CLEAN CATCH Performed By: #### L 3100.3450, M100.2200, L400.2010 #### [facility] [address] [place], [address] pH UR 6.5 Normal 5.0 - 8.0 [facility] Comment on above: Order Comment: COLOR OF URINE MAY AFFECT DIPSTICK RESULTS. CLEAN CATCH Performed By: #### L 3100.3450, M100.2200, L4.2010 #### [facility] [address] [place], [address] PROT DIPSTX 30 mg/dl Abnormal Negative [facility] Comment on above: Order Comment: COLOR OF URINE MAY AFFECT DIPSTICK RESULTS. CLEAN CATCH Performed By: #### L 3100.3450, M100.2200, L400.2010 #### [facility] [address] [place], [address] SP.GR. DIPSTX 1.015 Normal 1.002-1.03 0 [facility] Comment on above: Order Comment: COLOR OF URINE MAY AFFECT DIPSTICK RESULTS. CLEAN CATCH Performed By: #### L 3100.3450, M100.2200, L400.2010 #### [facility] [address] [place], [address] UROBILI Normal Normal Normal [facility] Comment on above: Order Comment: COLOR OF URINE MAY AFFECT DIPSTICK RESULTS. CLEAN CATCH Performed By: #### L 3100.3450, M100.2200, L400.2010 #### [facility] [address] [place], [place], [address] Urine blood detectionOrdered By: Marilee Jiang on 05-05-2024 Urine Occult Blood 250 /ul High Negative [facility] Urine clarityOrdered By: Yanique Jiang on 05-05-2024 Clarity (U) Sl. Cloudy Clear [facility] Urine color determinationOrd ered By: Marilee Jiang on 05-05-2024 Color (U) Mulu Yellow [facility] Urine cultureOrdered By: Yanique Jiang on 05-05-2024 Bacteria identified Cx Nom (U) Positive Abnormal [facility] Urine leukocyte esterase det ection by dipstickOrdered By: Marilee Jiang on 05-05-2024 Leukocyte esterase Test strip Ql (U) 25 /ul High Negative [facility] Urine pHOrdered By: Marilee cruz on 05-05-2024 pH (U) 6.5 [pH] 5.0 - 8.0 [facility] Urine specific gravity measu rementOrdered By: Marilee Jiang on 05-05-2024 Specific gravity (U) [Rel density] 1.015 1.002-1.03 0 [facility] Urobilinogen Ql (U)Ordered B y: Marilee Jiang on 05-05-2024 Urine Urobilinogen Normal mg/dl Normal [facility] Protein Electroph, Son 04-30 Albumin [Mass/Vol] 3.1 g/dL Normal 2.9-4.4 [facility] Comment on above: Order Comment: ADD O N BLOOD FROM 04/24/24 PER Performed By: #### L 509.1000, L3100.3450, L506.1000, L3410.9999, L3300.0960 #### [facility] [address] [facility] [place], [place], [address] Albumin/Globulin [Mass ratio] 0.8 {ratio} Normal 0.7-1.7 [facility] Comment on above: Order Comment: ADD O N BLOOD FROM 04/24/24 PER Performed By: #### L 509.1000, L3100.3450, L506.1000, L3410.9999, L3300.0960 #### [facility] [address] [place], [address] ALPHA-1 GLOBUL 0.3 g/dL Normal 0.0-0.4 [facility] Comment on above: Order Comment: ADD O N BLOOD FROM 04/24/24 PER Performed By: #### L 509.1000, L3100.3450, L506.1000, L3410.9999, L3300.0960 #### [facility] [address] [place], [address] ALPHA-2 GLOBUL 1.0 g/dL Normal 0.4-1.0 [facility] Comment on above: Order Comment: ADD O N BLOOD FROM 04/24/24 PER Performed By: #### L 509.1000, L3100.3450, L506.1000, L3410.9999, L3300.0960 #### [facility] [address] [place], [address] BETA GLOBULIN 1.2 g/dL Normal 0.7-1.3 [facility] Comment on above: Order Comment: ADD O N BLOOD FROM 04/24/24 PER Performed By: #### L 509.1000, L3100.3450, L506.1000, L3410.9999, L3300.0960 #### [facility] [address] [place], [address] GAMMA GLOBULIN 1.5 g/dL Normal 0.4-1.8 [facility] Comment on above: Order Comment: ADD O N BLOOD FROM 04/24/24 PER Performed By: #### L 509.1000, L3100.3450, L506.1000, L3410.9999, L3300.0960 #### [facility] [address] [place], [address] Globulin (S) [Mass/Vol] 4.0 g/dL High 2.2-3.9 [facility] Comment on above: Order Comment: ADD O N BLOOD FROM 04/24/24 PER Performed By: #### L 509.1000, L3100.3450, L506.1000, L3410.9999, L3300.0960 #### [facility] [address] [place], [place], [address] INTERPRETATION Comment Normal . [facility] Comment on above: Order Comment: ADD O N BLOOD FROM 04/24/24 PER Result Comment: Prot ein electrophoresis scan will follow via computer, mail, or spinning frame tender delivery. Performed By: #### L 509.1000, L3100.3450, L506.1000, L3410.9999, L3300.0960 #### [facility] [address] [place], [place], [address] M-SPIKE Not Observed Normal Not Observed [facility] Comment on above: Order Comment: ADD O N BLOOD FROM 04/24/24 PER Performed By: #### L 509.1000, L3100.3450, L506.1000, L3410.9999, L3300.0960 #### [facility] [address] [place], [place], [address] NOTE: Comment Normal . [facility] Comment on above: Order Comment: ADD O N BLOOD FROM 04/24/24 PER Result Comment: The SPE pattern appears unremarkable. Evidence of monoclonal protein is not apparent. Performed at: [address] [id number] Tissue Specialist: Scott Garcia PhD, Phone: [phone] Performed By: #### L 509.1000, L3100.3450, L506.1000, L3410.9999, L3300.0960 #### [facility] [address] [place], [place], [address] Protein [Mass/Vol] 7.1 g/dL Normal 6.0-8.5 [facility] Comment on above: Order Comment: ADD O N BLOOD FROM 04/24/24 PER Performed By: #### L 509.1000, L3100.3450, L506.1000, L3410.9999, L3300.0960 #### [facility] [address] [place], [address] L3410.9999on 04-28-2024 [facility]. COMMENT Normal . [facility] Comment on above: Order Comment: PTH-N O TRESYLOL ADDED [id number] PTH RELATED PEPTIDE FZ Result Comment: Test Ordered: [id number] PTHrP (PTH-Related Peptide) PTHrP (PTH-Related Peptide) <2.0 pmol/L ES Reference Range: . This test was developed and its performance characteristics determined by [employer]. It has not been cleared or approved [...] discordant, please contact the laboratory. Performed at: [facility] [address] [place] [id number] Tissue Specialist: Larry Vicente MD, Phone: [phone] Performed at: [address] [id number] Tissue Specialist: Scott Garcia PhD, Phone: [phone] Performed By: #### L 509.1000, L3100.3450, L506.1000, L3410.9999, L3300.0960 #### [facility] [address] [place], [address] Vitamin D 1,25-Dihydroxyon 0 04-27-2024 VIT D 1,25 DIHY 93.6 pg/mL Abnormal 24.8-81.5 [facility] Comment on above: Result Comment: Perf ormed at: [facility] [address] [id number] Tissue Specialist: Saran Huynh MD, Phone: [phone] Performed By: #### L 509.1000, L3100.3450, L506.1000, L3410.9999, L3300.9301 #### [facility] [address] [place], [address] 1,25-dihydroxyvitamin D3 [Ma ss/Vol]Ordered By: Marilee Jiang on 04-24-2024 Vitamin D 1,25-Dihydroxy 93.6 pg/mL High 24.8-81.5 [facility] Comment on above: Performed at: [facility] [address] [id number] Director: Saran Huynh MD, Phone: [phone] 48-HY-Vuwrvin DOrdered By: Eleuterio Jiang on 04-24-2024 Vitamin D 25-Hydroxy 74.5 ng/mL [facility] Comment on above: Vitamin D 25(OH) Sta tus Range Deficiency <20 ng/mL (50nmol/L) Insufficiency 20 - 30 ng/mL (50 - 75 nmol/L) Sufficiency 30 - 100 ng/mL (75 - 250 nmol/L) Toxicity >100 ng/mL (>250 nmol/L) Addendum DocumentOrdered By: Marilee Jiang on 04-24-2024 Protein Electrophoresis Note Comment . [facility] Comment on above: The SPE pattern appe ars unremarkable. Evidence ofmonoclonal protein is not apparent.Performed at: - [address] [id number] Director: Scott Garcia PhD, Phone: [phone] Albumin Elph [Mass/Vol]Order ed By: Marilee Jiang on 04-24-2024 Albumin [Mass/Vol] 3.1 g/dL 2.9-4.4 [facility] Albumin/Globulin Elph [Mass ratio]Ordered By: Marilee Jiang on 04-24-2024 Albumin/Globulin (PEP) 0.8 0.7-1.7 [facility] Keslb-2-esdjmbas measurement by protein electrophoresisOrdered By: Marilee Jiang on 04-24-2024 Yxtra-0-Vmwhcfgkr 0.3 g/dL 0.0-0.4 [facility] Cwdou-3-wtsdqhyi measurement by protein electrophoresisOrdered By: Marilee Jiang on 04-24-2024 Runon-8-Zygvopaga 1.0 g/dL 0.4-1.0 [facility] Beta globulin Elph [Mass/Vol ]Ordered By: Marilee Jiang on 04-24-2024 Beta Globulins 1.2 g/dL 0.7-1.3 [facility] Calcium ionizedOrdered By: Eleuterio Jiang on 04-24-2024 Ionized Calcium 1.42 mmol/L High 1.09-1.30 [facility] Gamma globulin measurement b y protein electrophoresisOrdered By: Marilee Jiang on 04-24-2024 Gamma Globulins 1.5 g/dL 0.4-1.8 [facility] Globulin (S) [Mass/Vol]Order ed By: Marilee Jiang on 04-24-2024 Globulin (PEP) 4.0 g/dL High 2.2-3.9 [facility] Intact parathyroid hormone ( iPTH) measurementOrdered By: Marilee Jiang on 04-24-2024 Parathyroid Hormone (Intact) 7.9 pg/mL Low 18.4-80.1 [facility] L501.2276on 04-24-2024 Ionized Calcium 1.42 mmol/L High 1.09-1.30 [facility] Comment on above: Performed By: #### L 501.2276 ####[facility] [address] [place], [address] No Panel InformationOrdered By: Marilee Jiang on 04-24-2024 Miscellaneous Test COMMENT . [facility] Comment on above: Test Ordered: [id number] PTHrP (PTH-Related Peptide)PTHrP (PTH-Related Peptide) <2.0 pmol/L ES Reference Range: .This test was developed and its performance characteristicsdetermined by [employer]. It has not been cleared or approvedby the Food and Drug Administration.Reference Range:All Ages: <2.0The PTHrP assay should not be used to exclude cancer orscreen tumor patients for humoral hypercalcemia ofmalignancy (HHM). The results should always be assessed inconjunction with the patient's medical history, clinicalexamination, and other findings. If test results areclinically discordant, please contact the laboratory.Performed at: ES - [facility] [address] [place], [place] [id number] Director: Larry Vicente MD, Phone: [phone] at: - [facility] [address] [place], [place] [id number] Director: Scott Garcia PhD, Phone: [phone] PTHINon 04-24-2024 PTH 7.9 pg/mL Low 18.4-80.1 [facility] Comment on above: Performed By: #### L 509.1000, L3100.3450, L506.1000, L3410.9999, L3300.0960 #### [facility] [address] [place], [address] Protein Fractions Elph [Inte rp]Ordered By: Marilee Jiang on 04-24-2024 Protein Electrophoresis Interpret Comment . [facility] Comment on above: Protein electrophore sis scan will follow via computer,mail, or spinning frame tender delivery. Protein.monoclonal Elph [Mas s/Vol]Ordered By: Marilee Jiang on 04-24-2024 Protein Electrophoresis M-Sree Not Observed g/dL Not Observed [facility] Serum or plasma protein bhavani urement (mass/volume)Ordered By: Marilee Jiang on 04-24-2024 Protein [Mass/Vol] 7.1 g/dL 6.0-8.5 [facility] Vitamin D,25 Hydroxyon 04-24 Vitamin D 25-OH 74.5 ng/mL Normal [facility] Comment on above: Result Comment: Cristina min D 25(OH) Status Range Deficiency <20 ng/mL (50nmol/L) Insufficiency 20 - 30 ng/mL (50 - 75 nmol/L) Sufficiency 30 - 100 ng/mL (75 - 250 nmol/L) Toxicity >100 ng/mL (>250 nmol/L) Performed By: #### L 509.1000, L3100.3450, L506.1000, L3410.9999, L3300.0960 #### [facility] [address] [place], [address] Absolute neutrophil countOrd ered By: Marilee Jiang on 04-21-2024 Neutrophils (Bld) [#/Vol] 4.3 10*3/uL 2.0-7.7 [facility] Albumin to globulin ratioOrd ered By: Marilee Jiang on 04-21-2024 Albumin/Globulin [Mass ratio] 0.7 {ratio} Low 0.9-2.4 [facility] Basophil percentageOrdered B y: Marilee Jiang on 04-21-2024 Basophils/100 WBC (Bld) 0.8 % 0-1 [facility] Bilirubin, totalOrdered By: Marilee Jiang on 04-21-2024 Bilirubin [Mass/Vol] 0.50 mg/dL 0.20-1.00 [facility] Comment on above: For patients on eltr ombopag therapy, use of Dimension [place] TBIL is not recommended. Blood urea nitrogen (BUN)/cr eatinine ratioOrdered By: Marilee Jiang on 04-21-2024 Urea nitrogen/Creatinine [Mass ratio] 19.1 mg/mg 10-20 [facility] CBC W/Diff, Automatedon - Absolute Lymph 2.24 X10 3/uL Normal 0.83-4.51 [facility] Comment on above: Performed By: #### L 503.6550, L100.0100, L500.4050, L501.2450, L503.6150 ####[facility] [address] [place], [address] Absolute Neut 4.3 X10 3/uL Normal 2.0-7.7 [facility] Comment on above: Performed By: #### L 503.6550, L100.0100, L500.4050, L501.2450, L503.6150 ####[facility] [address] [place], [address] Basophils/100 WBC (Bld) 0.8 % Normal 0-1 [facility] Comment on above: Performed By: #### L 503.6550, L100.0100, L500.4050, L501.2450, L503.6150 ####[facility] [address] [place], [address] Eosinophils/100 WBC (Bld) 3.4 % Normal 0-5 [facility] Comment on above: Performed By: #### L 503.6550, L100.0100, L500.4050, L501.2450, L503.6150 ####[facility] [address] [place], [address] Erythrocyte distribution width (RBC) [Ratio] 17.0 % High 11.6-14.6 [facility] Comment on above: Performed By: #### L 503.6550, L100.0100, L500.4050, L501.2450, L503.6150 ####[facility] [address] [place], [address] Hematocrit (Bld) [Volume fraction] 36.7 % Low 37-47 [facility] Comment on above: Performed By: #### L 503.6550, L100.0100, L500.4050, L501.2450, L503.6150 ####[facility] [address] [place], [address] Hemoglobin (Bld) [Mass/Vol] 11.3 g/dL Low 12.0-15.0 [facility] Comment on above: Performed By: #### L 503.6550, L100.0100, L500.4050, L501.2450, L503.6150 ####[facility] [address] [place], [address] IG% 0.500 Normal 0.0-0.9 [facility] Comment on above: Result Comment: IG% - Immature Granulocytes (promyelocytes, myelocytes and metamyelocytes) > 1% indicates that a LEFT SHIFT is Present. Performed By: #### L 503.6550, L100.0100, L500.4050, L501.2450, L503.6150 ####[facility] [address] [place], [address] Lymphocytes/100 WBC (Bld) 28.6 % Normal 19-41 [facility] Comment on above: Performed By: #### L 503.6550, L100.0100, L500.4050, L501.2450, L503.6150 ####[facility] [address] [place], [address] MCH (RBC) [Entitic mass] 24.5 pg Low 27.0-32.0 [facility] Comment on above: Performed By: #### L 503.6550, L100.0100, L500.4050, L501.2450, L503.6150 ####[facility] [address] [place], [address] MCHC (RBC) [Mass/Vol] 30.8 g/dL Low 32-36 [facility] Comment on above: Performed By: #### L 503.6550, L100.0100, L500.4050, L501.2450, L503.6150 ####[facility] [address] [place], [address] MCV (RBC) [Entitic vol] 79.6 fL Low 81-99 [facility] Comment on above: Performed By: #### L 503.6550, L100.0100, L500.4050, L501.2450, L503.6150 ####[facility] [address] [place], [address] Monocytes/100 WBC (Bld) 11.4 % High 0-10 [facility] Comment on above: Performed By: #### L 503.6550, L100.0100, L500.4050, L501.2450, L503.6150 ####[facility] [address] [place], [address] Neutrophils/100 WBC (Bld) 55.3 % Normal 47-70 [facility] Comment on above: Performed By: #### L 503.6550, L100.0100, L500.4050, L501.2450, L503.6150 ####[facility] [address] [place], [address] Nucleated RBC (Bld) [#/Vol] 0 10*3/uL Normal 0-5 [facility] Comment on above: Performed By: #### L 503.6550, L100.0100, L500.4050, L501.2450, L503.6150 ####[facility] [address] [place], [address] Platelet mean volume (Bld) [Entitic vol] 8.9 fL Normal 6.2-12.0 [facility] Comment on above: Performed By: #### L 503.6550, L100.0100, L500.4050, L501.2450, L503.6150 ####[facility] [address] [place], [address] Platelets (Bld) [#/Vol] 420 10*3/uL Normal 150-450 [facility] Comment on above: Performed By: #### L 503.6550, L100.0100, L500.4050, L501.2450, L503.6150 ####[facility] [address] [place], [address] RBC (Bld) [#/Vol] 4.61 10*6/uL Normal 4.2-5.4 [facility] Comment on above: Performed By: #### L 503.6550, L100.0100, L500.4050, L501.2450, L503.6150 ####[facility] [address] [place], [address] RDW SD 49.0 fl High 35.1-43.9 [facility] Comment on above: Performed By: #### L 503.6550, L100.0100, L500.4050, L501.2450, L503.6150 ####[facility] [address] [place], [address] WBC (Bld) [#/Vol] 7.8 10*3/uL Normal 4.4-11.0 [facility] Comment on above: Performed By: #### L 503.6550, L100.0100, L500.4050, L501.2450, L503.6150 ####[facility] [address] [place], [address] Carbon dioxide measurementOr dered By: Marilee Jiang on 04-21-2024 CO2 [Moles/Vol] 29.0 mmol/L 21.0-32.0 [facility] Chloride measurementOrdered By: Marilee Jiang on 04-21-2024 Chloride [Moles/Vol] 99 mmol/L 98-107 [facility] Comprehensive Metabolic Prof ilon 04-21-2024 Albumin [Mass/Vol] 3.3 g/dL Normal 3.2-5.0 [facility] Comment on above: Performed By: #### L 503.6550, L100.0100, L500.4050, L501.2450, L503.6150 ####[facility] [address] [place], [address] Albumin/Globulin [Mass ratio] 0.7 {ratio} Low 0.9-2.4 [facility] Comment on above: Performed By: #### L 503.6550, L100.0100, L500.4050, L501.2450, L503.6150 ####[facility] [address] [place], [address] ALK P 62 U/L Normal 45-117 [facility] Comment on above: Performed By: #### L 503.6550, L100.0100, L500.4050, L501.2450, L503.6150 ####[facility] [address] [place], [address] ALT [Catalytic activity/Vol] 22 U/L Normal 13-56 [facility] Comment on above: Performed By: #### L 503.6550, L100.0100, L500.4050, L501.2450, L503.6150 ####[facility] [address] [place], [address] AST [Catalytic activity/Vol] 27 U/L Normal 15-37 [facility] Comment on above: Performed By: #### L 503.6550, L100.0100, L500.4050, L501.2450, L503.6150 ####[facility] [address] [place], [address] Bilirubin [Mass/Vol] 0.50 mg/dL Normal 0.20-1.00 [facility] Comment on above: Result Comment: For patients on eltrombopag therapy, use of Dimension [place] TBIL is not recommended. Performed By: #### L 503.6550, L100.0100, L500.4050, L501.2450, L503.6150 ####[facility] [address] [place], [address] BUN/CRE 19.1 RATIO Normal 10-20 [facility] Comment on above: Performed By: #### L 503.6550, L100.0100, L500.4050, L501.2450, L503.6150 ####[facility] [address] [place], [address] CA,Total 10.6 mg/dL High 8.5-10.1 [facility] Comment on above: Performed By: #### L 503.6550, L100.0100, L500.4050, L501.2450, L503.6150 ####[facility] [address] [place], [address] Chloride [Moles/Vol] 99 mmol/L Normal 98-107 [facility] Comment on above: Performed By: #### L 503.6550, L100.0100, L500.4050, L501.2450, L503.6150 ####[facility] [address] [place], [address] CO2 [Moles/Vol] 29.0 mmol/L Normal 21.0-32.0 [facility] Comment on above: Performed By: #### L 503.6550, L100.0100, L500.4050, L501.2450, L503.6150 ####[facility] [address] [place], [address] Creatinine [Mass/Vol] 0.63 mg/dL Normal 0.55-1.02 [facility] Comment on above: Result Comment: The validity of the calculated GFR GFRAA in patients over 70 years has not been determined. Clinical correlation is essential. Performed By: #### L 503.6550, L100.0100, L500.4050, L501.2450, L503.6150 ####[facility] [address] [place], [address] EST GFR - AA 116 mL/min Normal >60 [facility] Comment on above: Result Comment: Afri can Czech GFR Calc Performed By: #### L 503.6550, L100.0100, L500.4050, L501.2450, L503.6150 ####[facility] [address] [place], [address] GAP 8 Normal 5-15 [facility] Comment on above: Performed By: #### L 503.6550, L100.0100, L500.4050, L501.2450, L503.6150 ####[facility] [address] [place], [address] GFR/1.73 sq M.predicted among non-blacks MDRD (S/P/Bld) [Vol rate/Area] 96 mL/min/{1.73_m2} Normal >60 [facility] Comment on above: Result Comment: Non- GFR Calc Performed By: #### L 503.6550, L100.0100, L500.4050, L501.2450, L503.6150 ####[facility] [address] [place], [address] Globulin (S) [Mass/Vol] 5.0 g/dL High 2.2-4.2 [facility] Comment on above: Performed By: #### L 503.6550, L100.0100, L500.4050, L501.2450, L503.6150 ####[facility] [address] [place], [address] Glucose [Mass/Vol] 101 mg/dL Normal 74-106 [facility] Comment on above: Result Comment: Fast ing Glucose result from 100 to 125 mg/dL suggests IMPAIRED HOMEOSTASIS per A.D.A. criteria. Performed By: #### L 503.6550, L100.0100, L500.4050, L501.2450, L503.6150 ####[facility] [address] [place], [address] Potassium [Moles/Vol] 3.8 mmol/L Normal 3.5-5.1 [facility] Comment on above: Performed By: #### L 503.6550, L100.0100, L500.4050, L501.2450, L503.6150 ####[facility] [address] [place], [address] Sodium [Moles/Vol] 136 mmol/L Normal 136-145 [facility] Comment on above: Performed By: #### L 503.6550, L100.0100, L500.4050, L501.2450, L503.6150 ####[facility] [address] [place], [address] T PROT 8.3 g/dL High 6.4-8.2 [facility] Comment on above: Performed By: #### L 503.6550, L100.0100, L500.4050, L501.2450, L503.6150 ####[facility] [address] [place], [address] Urea nitrogen [Mass/Vol] 12 mg/dL Normal 7-18 [facility] Comment on above: Performed By: #### L 503.6550, L100.0100, L500.4050, L501.2450, L503.6150 ####[facility] [address] [place], [place], [address] Eosinophil percentageOrdered By: Marilee Jiang on 04-21-2024 Eosinophils/100 WBC (Bld) 3.4 % 0-5 [facility] Erythrocyte distribution wid th ratioOrdered By: Marilee Jiang on 04-21-2024 Erythrocyte distribution width (RBC) [Ratio] 17.0 % High 11.6-14.6 [facility] Erythrocyte distribution wid th standard deviationOrdered By: Marilee Jiang on 04-21-2024 Erythrocyte distribution width (RBC) [Entitic vol] 49.0 fL High 35.1-43.9 [facility] Estimated glomerular filtrat ion rate (GFR) AmericanOrdered By: Marilee Jaing on 04-21-2024 Estimated GFR (MDRD) Amer 116 mL/min >60 [facility] Comment on above: GFR Calc Ferritinon 04-21-2024 Ferritin [Mass/Vol] 28 ng/mL Normal 8-252 [facility] Comment on above: Performed By: #### L 503.6550, L100.0100, L500.4050, L501.2450, L503.6150 ####[facility] [address] [place], [place], [address] Ferritin measurementOrdered By: Marilee Jiang on 04-21-2024 Ferritin [Mass/Vol] 28 ng/mL 8-252 [facility] Glomerular filtration rate ( GFR) estimationOrdered By: Marilee Jiang on 04-21-2024 Estimated GFR (MDRD) Non-Af Amer 96 mL/min >60 [facility] Comment on above: Non- GFR Calc Glucose measurementOrdered B y: Marilee Jiang on 04-21-2024 Glucose [Mass/Vol] 101 mg/dL 74-106 [facility] Comment on above: Fasting Glucose resu lt from 100 to 125 mg/dL suggests IMPAIRED HOMEOSTASIS per A.D.A. criteria. Hematocrit Auto (Bld) [Volum e fraction]Ordered By: Marilee Jiang on 04-21-2024 Hematocrit (Bld) [Volume fraction] 36.7 % Low 37-47 [facility] Hemoglobin measurementOrdere d By: Marilee Jiang on 04-21-2024 Hemoglobin (Bld) [Mass/Vol] 11.3 g/dL Low 12.0-15.0 [facility] Immature granulocytes/100 WB C Auto (Bld)Ordered By: Marilee Jiang on 04-21-2024 Immature granulocytes/100 WBC (Bld) 0.500 % 0.0-0.9 [facility] Comment on above: IG% - Immature Granu locytes (promyelocytes, myelocytes and metamyelocytes) > 1% indicates that a LEFT SHIFT is Present. Ironon 04-21-2024 Iron [Mass/Vol] 31 ug/dL Low 50-170 [facility] Comment on above: Performed By: #### L 503.6550, L100.0100, L500.4050, L501.2450, L503.6150 ####[facility] [address] [place], [place], [address] Iron (Unsp spec) [Mass/Mass] Ordered By: Marilee Jiang on 04-21-2024 Iron [Mass/Vol] 31 ug/dL Low 50-170 [facility] Laboratory - Chemistry and C hemistry - challengeOrdered By: Marilee Jiang on 04-21-2024 AST [Catalytic activity/Vol] 27 U/L 15-37 [facility] Lipaseon 04-21-2024 Lipase [Catalytic activity/Vol] 28 U/L Normal 13-75 [facility] Comment on above: Result Comment: Galindo brooks note: LIPASE revised reference range effective 22. New Lipase methodology. Expected to produce lower values than the previous assay method. NEW Reference Range: 13 - 75 U/L Performed By: #### L 503.6550, L100.0100, L500.4050, L501.2450, L503.6150 ####[facility] [address] [place], [address] Lipase measurementOrdered By : Marilee Jiang on 04-21-2024 Lipase [Catalytic activity/Vol] 28 U/L 13- [facility] Comment on above: Please note:LIPASE r evised reference range effective 22. New Lipase methodology. Expected to produce lower values than the previous assay method. NEW Reference Range: 13 - 75 U/L Lymphocytes Auto (Unsp spec) [#/Vol]Ordered By: Marilee Jiang on 04-21-2024 Lymphocytes (Bld) [#/Vol] 2.24 10*3/uL 0.83-4.51 [facility] Lymphocytes/100 WBC Auto (Un sp spec)Ordered By: Marilee Jiang on 04-21-2024 Lymphocytes/100 WBC (Bld) 28.6 % 19-41 [facility] MCV (mean corpuscular volume ) determinationOrdered By: Marilee Jiang on 04-21-2024 MCV (RBC) [Entitic vol] 79.6 fL Low 81-99 [facility] Mean corpuscular hemoglobin (MCH) determinationOrdered By: Marilee Jiang on 04-21-2024 MCH (RBC) [Entitic mass] 24.5 pg Low 27.0-32.0 [facility] Mean corpuscular hemoglobin concentration (MCHC) determinationOrdered By: Marilee Jiang on 04-21-2024 MCHC (RBC) [Mass/Vol] 30.8 g/dL Low 32-36 [facility] Mean platelet volume determi nationOrdered By: Marilee Jiang on 04-21-2024 Platelet mean volume (Bld) [Entitic vol] 8.9 fL 6.2-12.0 [facility] Monocyte percentageOrdered B y: Marilee Jiang on 04-21-2024 Monocytes/100 WBC (Bld) 11.4 % High 0-10 [facility] Neutrophil percentageOrdered By: Marilee Jiang on 04-21-2024 Neutrophils/100 WBC (Bld) 55.3 % 47-70 [facility] Nucleated red blood cell per centageOrdered By: Marilee Jiang on 04-21-2024 Nucleated RBC/100 WBC (Bld) [Ratio] 0 % 0-5 [facility] Platelet countOrdered By: Vashti Jiang on 04-21-2024 Platelets (Bld) [#/Vol] 420 10*3/uL 150-450 [facility] Potassium measurementOrdered By: Marilee Jiang on 04-21-2024 Potassium [Moles/Vol] 3.8 mmol/L 3.5-5.1 [facility] RBC Auto (Bld) [#/Vol]Ordere d By: Marilee Jiang on 04-21-2024 RBC (Bld) [#/Vol] 4.61 10*6/uL 4.2-5.4 [facility] Serum anion gap measurementO rdered By: Marilee Jiang on 04-21-2024 Anion gap [Moles/Vol] 8 mmol/L 5-15 [facility] Serum globulin measurementOr dered By: Marilee Jiang on 04-21-2024 Globulin (S) [Mass/Vol] 5.0 g/dL High 2.2-4.2 [facility] Serum or plasma alanine woodard otransferase (ALT) measurementOrdered By: Marilee Jiang on 04-21-2024 ALT [Catalytic activity/Vol] 22 U/L 13-56 [facility] Serum or plasma albumin bhavani urement (mass/volume)Ordered By: Marilee Jiang on 04-21-2024 Albumin [Mass/Vol] 3.3 g/dL 3.2-5.0 [facility] Serum or plasma alkaline keenan sphatase measurementOrdered By: Marilee Jiang on 04-21-2024 ALP [Catalytic activity/Vol] 62 U/L 45-117 [facility] Serum or plasma calcium bhavani urement (mass/volume)Ordered By: Marilee Jiang on 04-21-2024 Calcium [Mass/Vol] 10.6 mg/dL High 8.5-10.1 [facility] Serum or plasma creatinine m easurement (mass/volume)Ordered By: Marilee Jiang on 04-21-2024 Creatinine [Mass/Vol] 0.63 mg/dL 0.55-1.02 [facility] Comment on above: The validity of the calculated GFR & GFRAA in patients over 70 years has not been determined. Clinical correlation is essential. Serum or plasma urea nitroge n measurement (mass/volume)Ordered By: Marilee Jiang on 04-21-2024 Urea nitrogen [Mass/Vol] 12 mg/dL 7-18 [facility] Sodium levelOrdered By: Marilee Jiang on 04-21-2024 Sodium [Moles/Vol] 136 mmol/L 136-145 [facility] Total proteinOrdered By: Yanique Jiang on 04-21-2024 Protein [Mass/Vol] 8.3 g/dL High 6.4-8.2 [facility] White blood cell (WBC) count Ordered By: Marilee Jiang on 04-21-2024 WBC (Bld) [#/Vol] 7.8 10*3/uL 4.4-11.0 [facility] SCRN MAMM (CAD)W/DIONICIO BILATo n 04-15-2024 SCRN MAMM (CAD)W/DIONICIO BILAT [facility] [address], [place] [id number] SCRN MAMM (CAD)W/DIONICIO BILAT MR#: [id number] Acct: [id number] Name: LAZARA SHANE Rep #: [id number] : 1940 F 83 From: Raoul Venegas MD PCP: Dr. Marilee Jiang, DO Status: REG CLI Study: SCRN MAMM (CAD)W/DIONICIO BILAT Date of Exam: 03/24 08/14 Exam# [id number] Ordering Dr: Marilee Jiang DO [id number] MAMMOGRAPHY - BILATERAL SCREENING 3-D TOMOSYNTHESIS REASON [...] EST , CC: Dr. Marilee Jiang DO Set Up Mechan[employer]: Signed Normal [facility] Basophil percentageOrdered B y: Gem Cooper on 06-18-2023 Chloride [Moles/Vol] 101 mmol/L 98-107 [facility] Glucose [Mass/Vol] 194 mg/dL 74-106 [facility] Comment on above: Fasting Glucose resu lt greater than or equal to 126 mg/dL suggests DIABETES MELLITUS per A.D.A. criteria. Potassium [Moles/Vol] 4.5 mmol/L 3.5-5.1 [facility] Sodium [Moles/Vol] 133 mmol/L 136-145 [facility] Laboratory - Chemistry and C hemistry - challengeOrdered By: Gem Gamboa on 06-18-2023 CO2 [Moles/Vol] 26.0 mmol/L 21.0-32.0 [facility] Urea nitrogen/Creatinine [Mass ratio] 26.6 mg/mg 10-20 [facility] No Panel InformationOrdered By: Gem Gamboa on 06-18-2023 Estimated GFR (MDRD) Amer 107 mL/min >60 [facility] Comment on above: GFR Calc Estimated GFR (MDRD) Non-Af Amer 89 mL/min >60 [facility] Comment on above: Non- GFR Calc Serum or plasma calcium bhavani urement (mass/volume)Ordered By: Gem Gamboa on 06-18-2023 Calcium [Mass/Vol] 9.2 mg/dL 8.5-10.1 [facility] Serum or plasma creatinine m easurement (mass/volume)Ordered By: Gem Gamboa on 06-18-2023 Creatinine [Mass/Vol] 0.68 mg/dL 0.55-1.02 [facility] Comment on above: The validity of the calculated GFR & GFRAA in patients over 70 years has not been determined. Clinical correlation is essential. Serum or plasma urea nitroge n measurement (mass/volume)Ordered By: Gem Gamboa on 06-18-2023 Urea nitrogen [Mass/Vol] 18 mg/dL 7-18 [facility] Thin prep Papanicolaou smear with manual screeningOrdered By: Gem Gamboa on 06-18-2023 Thin prep Papanicolaou smear with manual screening 6 5-15 [facility] Absolute lymphocyte countOrd ered By: Marilee Jiang on 04-20-2023 Lymphocytes Auto (Unsp spec) [#/Vol] 2.37 10*3/uL 0.83-4.51 [facility] Basophil percentageOrdered B y: Marilee Jiang on 04-20-2023 Basophils/100 WBC (Bld) 0.7 % 0-1 [facility] Bilirubin [Mass/Vol] 0.30 mg/dL 0.20-1.00 [facility] Comment on above: For patients on eltr ombopag therapy, use of Dimension [place] TBIL is not recommended. Chloride [Moles/Vol] 107 mmol/L 98-107 [facility] Cholesterol [Mass/Vol] 119 mg/dL <200 [facility] Comment on above: <200 mg/dL Desirable 200-240 mg/dL Borderline >240 mg/dL High Risk Eosinophils/100 WBC (Bld) 2.0 % 0-5 [facility] Glucose [Mass/Vol] 147 mg/dL 74-106 [facility] Comment on above: Fasting Glucose resu lt greater than or equal to 126 mg/dL suggests DIABETES MELLITUS per A.D.A. criteria. Neutrophils (Bld) [#/Vol] 4.4 10*3/uL 2.0-7.7 [facility] Neutrophils/100 WBC (Bld) 58.9 % 47-70 [facility] Potassium [Moles/Vol] 4.1 mmol/L 3.5-5.1 [facility] Protein [Mass/Vol] 7.8 g/dL 6.4-8.2 [facility] Sodium [Moles/Vol] 140 mmol/L 136-145 [facility] Triglyceride [Mass/Vol] 78 mg/dL <199 [facility] Comment on above: The drugs N-Acetylcy steine and Metamizole may falsely depress this assay.Serum Triglycerides Reference Interval Normal <150 mg/dL Borderline high 150 - 199 mg/dL High 200 - 499 mg/dL Very High > or = 500 mg/dL WBC (Bld) [#/Vol] 7.5 10*3/uL 4.4-11.0 [facility] Blood erythrocytes count (nu mber/volume)Ordered By: Marilee Jiang on 04-20-2023 RBC (Bld) [#/Vol] 4.58 10*6/uL 4.2-5.4 [facility] Blood hemoglobin measurement (mass/volume)Ordered By: Marilee Jiang on 04-20-2023 Hemoglobin (Bld) [Mass/Vol] 12.6 g/dL 12.0-15.0 [facility] Blood lymphocytes/100 leukoc ytesOrdered By: Marilee Jiang on 04-20-2023 Lymphocytes/100 WBC (Bld) 31.6 % 19-41 [facility] Blood monocytes/100 leukocyt esOrdered By: Marilee Jiang on 04-20-2023 Monocytes/100 WBC (Bld) 6.3 % 0-10 [facility] Blood platelet mean volumeOr dered By: Marilee Jiang on 04-20-2023 Platelet mean volume (Bld) [Entitic vol] 9.3 fL 6.2-12.0 [facility] Determination of erythrocyte mean corpuscular volume (MCV)Ordered By: Marilee Jiang on 04-20-2023 MCV (RBC) [Entitic vol] 89.1 fL 81-99 [facility] Hematocrit Auto (Bld) [Volum e fraction]Ordered By: Marilee Jiang on 04-20-2023 Hematocrit (Bld) [Volume fraction] 40.8 % 37-47 [facility] Laboratory - Chemistry and C hemistry - challengeOrdered By: Marilee Jiang on 04-20-2023 ALP [Catalytic activity/Vol] 58 U/L 45-117 [facility] ALT [Catalytic activity/Vol] 20 U/L 13-56 [facility] CO2 [Moles/Vol] 29.0 mmol/L 21.0-32.0 [facility] Globulin (S) [Mass/Vol] 4.5 g/dL 2.2-4.2 [facility] Urea nitrogen/Creatinine [Mass ratio] 25.4 mg/mg 10-20 [facility] Laboratory - Hematology and Cell countsOrdered By: Marilee Jiang on 04-20-2023 Erythrocyte distribution width (RBC) [Entitic vol] 50.0 fL 35.1-43.9 [facility] Erythrocyte distribution width (RBC) [Ratio] 15.2 % 11.6-14.6 [facility] Immature granulocytes/100 WBC (Bld) 0.500 % 0.0-0.9 [facility] Comment on above: IG% - Immature Granu locytes (promyelocytes, myelocytes and metamyelocytes) > 1% indicates that a LEFT SHIFT is Present. MCH (RBC) [Entitic mass] 27.5 pg 27.0-32.0 [facility] Nucleated RBC/100 WBC (Bld) [Ratio] 0 % 0-5 [facility] Auto (RBC) [Mass/Vol]Or dered By: Marilee Jiang on 04-20-2023 MCHC (RBC) [Mass/Vol] 30.9 g/dL 32-36 [facility] No Panel InformationOrdered By: Marilee Jiang on 04-20-2023 Estimated GFR (MDRD) Amer 108 mL/min >60 [facility] Comment on above: GFR Calc Estimated GFR (MDRD) Non-Af Amer 90 mL/min >60 [facility] Comment on above: Non- GFR Calc Urine Microalbumin/Creatinine Ratio 37.3 mg/g CRE <30 [facility] Platelets bldOrdered By: Yanique Jiang on 04-20-2023 Platelets (Bld) [#/Vol] 329 10*3/uL 150-450 [facility] Serum or plasma albumin bhavani urement (mass/volume)Ordered By: Marilee Jiang on 04-20-2023 Albumin [Mass/Vol] 3.3 g/dL 3.2-5.0 [facility] Serum or plasma albumin/glob ulin mass ratioOrdered By: Marilee Jiang on 04-20-2023 Albumin/Globulin [Mass ratio] 0.7 {ratio} 0.9-2.4 [facility] Serum or plasma calcium bhavani urement (mass/volume)Ordered By: Marilee Jiang on 04-20-2023 Calcium [Mass/Vol] 8.9 mg/dL 8.5-10.1 [facility] Serum or plasma cholesterol in HDL measurement (mass/volume)Ordered By: Marilee Jiang on 04-20-2023 Cholesterol in HDL [Mass/Vol] 42 mg/dL >40 [facility] Comment on above: The drugs N-Acetylcy steine and Metamizole may falsely depress this assay. Reference Range HDL <40 mg/dL Low HDL Cholesterol HDL >or= 60 mg/dL High HDL Cholesterol Serum or plasma cholesterol in VLDL measurement (mass/volume)Ordered By: Marilee Jiang on 04-20-2023 Cholesterol in VLDL [Mass/Vol] 16 mg/dL 5-40 [facility] Serum or plasma creatinine m easurement (mass/volume)Ordered By: Marilee Jiang on 04-20-2023 Creatinine [Mass/Vol] 0.67 mg/dL 0.55-1.02 [facility] Comment on above: The validity of the calculated GFR & GFRAA in patients over 70 years has not been determined. Clinical correlation is essential. Serum or plasma low density lipoprotein (LDL) cholesterol measurement (mass/volume)Ordered By: Marilee Jiang on 04-20-2023 Cholesterol in LDL [Mass/Vol] 61 mg/dL 0-130 [facility] Serum or plasma urea nitroge n measurement (mass/volume)Ordered By: Marilee Jiang on 04-20-2023 Urea nitrogen [Mass/Vol] 17 mg/dL 7-18 [facility] Thin prep Papanicolaou smear with manual screeningOrdered By: Marilee Jiang on 04-20-2023 Thin prep Papanicolaou smear with manual screening 13 U/L 15-37 [facility] Thin prep Papanicolaou smear with manual screening 4 5-15 [facility] Thin prep Papanicolaou smear with manual screening 18.9 mg/L NO RANGE EST. [facility] Urine creatinine measurement (mass/volume)Ordered By: Marilee Jiang on 04-20-2023 Creatinine (U) [Mass/Vol] 50.70 mg/dL NO RANGE EST. [facility] Culture, urineOrdered By: Vashti Jiang on 01-18-2023 Bacteria identified Cx Nom (U) Pseudomonas aeruginosa [facility] Absolute lymphocyte countOrd ered By: Alcon Ramirez on 11-01-2022 Lymphocytes Auto (Unsp spec) [#/Vol] 3.45 10*3/uL 0.83-4.51 [facility] Basophil percentageOrdered B y: Alcon Ramirez on 11-01-2022 Basophils/100 WBC (Bld) 0.5 % 0-1 [facility] Eosinophils/100 WBC (Bld) 1.1 % 0-5 [facility] Neutrophils (Bld) [#/Vol] 6.8 10*3/uL 2.0-7.7 [facility] Neutrophils/100 WBC (Bld) 61.1 % 47-70 [facility] WBC (Bld) [#/Vol] 11.2 10*3/uL 4.4-11.0 [facility] Blood erythrocytes count (nu mber/volume)Ordered By: Alcon Ramirez on 11-01-2022 RBC (Bld) [#/Vol] 4.36 10*6/uL 4.2-5.4 [facility] Blood hemoglobin measurement (mass/volume)Ordered By: Alcon Ramirez on 11-01-2022 Hemoglobin (Bld) [Mass/Vol] 12.4 g/dL 12.0-15.0 [facility] Blood lymphocytes/100 leukoc ytesOrdered By: Alcon Ramirez on 11-01-2022 Lymphocytes/100 WBC (Bld) 30.9 % 19-41 [facility] Blood monocytes/100 leukocyt esOrdered By: Alcon Ramirez on 11-01-2022 Monocytes/100 WBC (Bld) 5.9 % 0-10 [facility] Blood platelet mean volumeOr dered By: Alcon Ramirez on 11-01-2022 Platelet mean volume (Bld) [Entitic vol] 9.3 fL 6.2-12.0 [facility] Determination of erythrocyte mean corpuscular volume (MCV)Ordered By: Alcon Ramirez on 11-01-2022 MCV (RBC) [Entitic vol] 90.4 fL 81-99 [facility] Erythrocyte sedimentation ra teOrdered By: Alocn Ramirez on 11-01-2022 ESR (Bld) [Velocity] 23 mm/h 0-30 [facility] Hematocrit Auto (Bld) [Volum e fraction]Ordered By: Alcon Ramirez on 11-01-2022 Hematocrit (Bld) [Volume fraction] 39.4 % 37-47 [facility] Laboratory - Hematology and Cell countsOrdered By: Alcon Ramirez on 11-01-2022 Erythrocyte distribution width (RBC) [Entitic vol] 50.5 fL 35.1-43.9 [facility] Erythrocyte distribution width (RBC) [Ratio] 15.1 % 11.6-14.6 [facility] Immature granulocytes/100 WBC (Bld) 0.500 % 0.0-0.9 [facility] Comment on above: IG% - Immature Granu locytes (promyelocytes, myelocytes and metamyelocytes) > 1% indicates that a LEFT SHIFT is Present. MCH (RBC) [Entitic mass] 28.4 pg 27.0-32.0 [facility] Nucleated RBC/100 WBC (Bld) [Ratio] 0 % 0-5 [facility] MCHC Auto (RBC) [Mass/Vol]Or dered By: Alcon Ramirez on 11-01-2022 MCHC (RBC) [Mass/Vol] 31.5 g/dL 32-36 [facility] Platelets bldOrdered By: Joey Ramirez on 11-01-2022 Platelets (Bld) [#/Vol] 324 10*3/uL 150-450 [facility] Serum or plasma C reactive p rotein measurement (mass/volume)Ordered By: Alcon Ramirez on 11-01-2022 CRP [Mass/Vol] 13.90 mg/L 0.0-3.0 [facility] Comment on above: C-Reactive Protein ( CRP) provides useful information for thediagnosis, therapy and monitoring of inflammatory processesand associated diseases. For the evaluation of Relative Riskfor Cardiovascular Disease, a High Sensitivity CRP (HSCRP)should be ordered. Basophil percentageOrdered B y: Marilee Jiang on 09-25-2022 Bilirubin [Mass/Vol] 0.30 mg/dL 0.20-1.00 [facility] Comment on above: For patients on eltr ombopag therapy, use of Dimension [place] TBIL is not recommended. Chloride [Moles/Vol] 106 mmol/L 98-107 [facility] Glucose [Mass/Vol] 86 mg/dL 74-106 [facility] Potassium [Moles/Vol] 4.3 mmol/L 3.5-5.1 [facility] Protein [Mass/Vol] 9.1 g/dL 6.4-8.2 [facility] Sodium [Moles/Vol] 138 mmol/L 136-145 [facility] Laboratory - Chemistry and C hemistry - challengeOrdered By: Marilee Jiang on 09-25-2022 ALP [Catalytic activity/Vol] 68 U/L 45-117 [facility] ALT [Catalytic activity/Vol] 24 U/L 13-56 [facility] CO2 [Moles/Vol] 31.0 mmol/L 21.0-32.0 [facility] Globulin (S) [Mass/Vol] 5.6 g/dL 2.2-4.2 [facility] Urea nitrogen/Creatinine [Mass ratio] 13.9 mg/mg 10-20 [facility] No Panel InformationOrdered By: Marilee Jiang on 09-25-2022 Estimated GFR (MDRD) Amer 63 mL/min >60 [facility] Comment on above: GFR Calc Estimated GFR (MDRD) Non-Af Amer 52 mL/min >60 [facility] Comment on above: Non- GFR Calc Serum or plasma albumin bhavani urement (mass/volume)Ordered By: Marilee Jiang on 09-25-2022 Albumin [Mass/Vol] 3.5 g/dL 3.2-5.0 [facility] Serum or plasma albumin/glob ulin mass ratioOrdered By: Marilee Jiang on 09-25-2022 Albumin/Globulin [Mass ratio] 0.6 {ratio} 0.9-2.4 [facility] Serum or plasma calcium bhavani urement (mass/volume)Ordered By: Marilee Jiang on 09-25-2022 Calcium [Mass/Vol] 9.1 mg/dL 8.5-10.1 [facility] Serum or plasma creatinine m easurement (mass/volume)Ordered By: Marilee Jiang on 09-25-2022 Creatinine [Mass/Vol] 1.08 mg/dL 0.55-1.02 [facility] Comment on above: The validity of the calculated GFR & GFRAA in patients over 70 years has not been determined. Clinical correlation is essential. Serum or plasma urea nitroge n measurement (mass/volume)Ordered By: Marilee Jiang on 09-25-2022 Urea nitrogen [Mass/Vol] 15 mg/dL 7-18 [facility] Thin prep Papanicolaou smear with manual screeningOrdered By: Marilee Jiang on 09-25-2022 Thin prep Papanicolaou smear with manual screening 24 U/L 15-37 [facility] Thin prep Papanicolaou smear with manual screening 1 5-15 [facility] Absolute lymphocyte countOrd ered By: Dr. Jiang on 04-20-2022 Lymphocytes Auto (Unsp spec) [#/Vol] 2.08 10*3/uL 0.83-4.51 [facility] Basophil percentageOrdered B y: Dr. Jiang on 04-20-2022 Basophils/100 WBC (Bld) 0.3 % 0-1 [facility] Bilirubin [Mass/Vol] 0.50 mg/dL 0.20-1.00 [facility] Comment on above: For patients on eltr ombopag therapy, use of Dimension [place] TBIL is not recommended. Chloride [Moles/Vol] 99 mmol/L 98-107 [facility] Eosinophils/100 WBC (Bld) 0.1 % 0-5 [facility] Glucose [Mass/Vol] 248 mg/dL 74-106 [facility] Comment on above: Glucose result great er than or equal to 200 mg/dLsuggests DIABETES MELLITUS per A.D.A. criteria. Neutrophils (Bld) [#/Vol] 11.8 10*3/uL 2.0-7.7 [facility] Neutrophils/100 WBC (Bld) 79.6 % 47-70 [facility] Potassium [Moles/Vol] 4.3 mmol/L 3.5-5.1 [facility] Protein [Mass/Vol] 8.6 g/dL 6.4-8.2 [facility] Sodium [Moles/Vol] 134 mmol/L 136-145 [facility] WBC (Bld) [#/Vol] 14.8 10*3/uL 4.4-11.0 [facility] Blood erythrocytes count (nu mber/volume)Ordered By: Dr. Jiang on 04-20-2022 RBC (Bld) [#/Vol] 5.04 10*6/uL 4.2-5.4 [facility] Blood hemoglobin measurement (mass/volume)Ordered By: Dr. Jiang on 04-20-2022 Hemoglobin (Bld) [Mass/Vol] 14.7 g/dL 12.0-15.0 [facility] Blood lymphocytes/100 leukoc ytesOrdered By: Dr. Jiang on 04-20-2022 Lymphocytes/100 WBC (Bld) 14.1 % 19-41 [facility] Blood monocytes/100 leukocyt esOrdered By: Dr. Jiang on 04-20-2022 Monocytes/100 WBC (Bld) 5.3 % 0-10 [facility] Blood platelet mean volumeOr dered By: Dr. Jiang on 04-20-2022 Platelet mean volume (Bld) [Entitic vol] 9.1 fL 6.2-12.0 [facility] Determination of erythrocyte mean corpuscular volume (MCV)Ordered By: Dr. Jiang on 04-20-2022 MCV (RBC) [Entitic vol] 86.5 fL 81-99 [facility] Hematocrit Auto (Bld) [Volum e fraction]Ordered By: Dr. Jiang on 04-20-2022 Hematocrit (Bld) [Volume fraction] 43.6 % 37-47 [facility] Laboratory - Chemistry and C hemistry - challengeOrdered By: Dr. Jiang on 04-20-2022 ALP [Catalytic activity/Vol] 57 U/L 45-117 [facility] ALT [Catalytic activity/Vol] 27 U/L 13-56 [facility] CO2 [Moles/Vol] 32.0 mmol/L 21.0-32.0 [facility] Globulin (S) [Mass/Vol] 5.2 g/dL 2.2-4.2 [facility] Lipase [Catalytic activity/Vol] 89 U/L 73-393 [facility] Urea nitrogen/Creatinine [Mass ratio] 20.7 mg/mg 10-20 [facility] Laboratory - Hematology and Cell countsOrdered By: Dr. Jiang on 04-20-2022 Erythrocyte distribution width (RBC) [Entitic vol] 46.4 fL 35.1-43.9 [facility] Erythrocyte distribution width (RBC) [Ratio] 14.6 % 11.6-14.6 [facility] Immature granulocytes/100 WBC (Bld) 0.600 % 0.0-0.9 [facility] Comment on above: IG% - Immature Granu locytes (promyelocytes, myelocytes and metamyelocytes) > 1% indicates that a LEFT SHIFT is Present. MCH (RBC) [Entitic mass] 29.2 pg 27.0-32.0 [facility] Nucleated RBC/100 WBC (Bld) [Ratio] 0 % 0-5 [facility] MCHC Auto (RBC) [Mass/Vol]Or dered By: Dr. Jiang on 04-20-2022 MCHC (RBC) [Mass/Vol] 33.7 g/dL 32-36 [facility] No Panel InformationOrdered By: Dr. Jiang on 04-20-2022 Estimated GFR (MDRD) Amer 92 mL/min >60 [facility] Comment on above: GFR Calc Estimated GFR (MDRD) Non-Af Amer 76 mL/min >60 [facility] Comment on above: Non- GFR Calc Platelets bldOrdered By: Dr. Jiang on 04-20-2022 Platelets (Bld) [#/Vol] 408 10*3/uL 150-450 [facility] Serum or plasma albumin bhavani urement (mass/volume)Ordered By: Dr. Jiang on 04-20-2022 Albumin [Mass/Vol] 3.4 g/dL 3.2-5.0 [facility] Serum or plasma albumin/glob ulin mass ratioOrdered By: Dr. Jiang on 04-20-2022 Albumin/Globulin [Mass ratio] 0.7 {ratio} 0.9-2.4 [facility] Serum or plasma calcium bhavani urement (mass/volume)Ordered By: Dr. Jiang on 04-20-2022 Calcium [Mass/Vol] 9.7 mg/dL 8.5-10.1 [facility] Serum or plasma creatinine m easurement (mass/volume)Ordered By: Dr. Jiang on 04-20-2022 Creatinine [Mass/Vol] 0.77 mg/dL 0.55-1.02 [facility] Comment on above: The validity of the calculated GFR & GFRAA in patients over 70 years has not been determined. Clinical correlation is essential. Serum or plasma urea nitroge n measurement (mass/volume)Ordered By: Dr. Jiang on 04-20-2022 Urea nitrogen [Mass/Vol] 16 mg/dL 7-18 [facility] Thin prep Papanicolaou smear with manual screeningOrdered By: Dr. Jiang on 04-20-2022 Thin prep Papanicolaou smear with manual screening 17 U/L 15-37 [facility] Thin prep Papanicolaou smear with manual screening 3 5-15 [facility] Basophil percentageOrdered B y: Dr. Bhatt on 03-22-2022 Chloride [Moles/Vol] 104 mmol/L 98-107 [facility] Glucose [Mass/Vol] 59 mg/dL 74-106 [facility] Potassium [Moles/Vol] 3.3 mmol/L 3.5-5.1 [facility] Sodium [Moles/Vol] 139 mmol/L 136-145 [facility] Glucose Glucometer (BldC) [M ass/Vol]Ordered By: Dr. Bhatt on 03-22-2022 Glucose [Mass/Vol] 107 mg/dL 74-106 [facility] Comment on above: MANAGEMENT OF PATIEN T CARE PER NURSING PROTOCOL Laboratory - Chemistry and C hemistry - challengeOrdered By: Dr. Bhatt on 03-22-2022 CO2 [Moles/Vol] 31.0 mmol/L 21.0-32.0 [facility] Urea nitrogen/Creatinine [Mass ratio] 28.2 mg/mg 10-20 [facility] No Panel InformationOrdered By: Dr. Bhatt on 03-22-2022 Estimated Creatinine Clearance Calc 35.49 ml/min [facility] Estimated GFR (MDRD) Amer 108 mL/min >60 [facility] Comment on above: GFR Calc Estimated GFR (MDRD) Non-Af Amer 89 mL/min >60 [facility] Comment on above: Non- GFR Calc Serum or plasma calcium bhavani urement (mass/volume)Ordered By: Dr. Bhatt on 03-22-2022 Calcium [Mass/Vol] 9.5 mg/dL 8.5-10.1 [facility] Serum or plasma creatinine m easurement (mass/volume)Ordered By: Dr. Bhatt on 03-22-2022 Creatinine [Mass/Vol] 0.67 mg/dL 0.55-1.02 [facility] Comment on above: The validity of the calculated GFR & GFRAA in patients over 70 years has not been determined. Clinical correlation is essential. Serum or plasma urea nitroge n measurement (mass/volume)Ordered By: Dr. Bhatt on 03-22-2022 Urea nitrogen [Mass/Vol] 19 mg/dL 7-18 [facility] Thin prep Papanicolaou smear with manual screeningOrdered By: Dr. Bhatt on 03-22-2022 Thin prep Papanicolaou smear with manual screening 4 5-15 [facility] CNOVon 11-02-2020 CNOV Office Visit (VASSMD ) -- LAZARA SHANE ([id number]) 1940 F Date Time Provider Department 11/02/20 [...] Assessed Reason for Visit: Established Patient Follow-Up [[id number]] Cmt: Results Primary Visit Diagnosis:Symptomatic varicose veins of both lower extremities [I83.893] Order(s):COMPRESSION STOCKINGS [[id number]] Order #: [id number] Prescriptions as of 11/02/2020 - glimepiride (AMARYL) [...] Encounter Status:Closed by SOCORRO HYATT on 11/02/20 [facility] 08-03-2020 [facility] Telephone (KENDELLD) -- LAZARA SHANE ([id number]) 1940 F Date Time Provider Department 08/03/20 SOCORRO HYATTRadha During your visit today, we recorded the [...] Encounter Status:Closed by MONICA HE on 08/04/20 [facility] 07-20-2020 CNOV Office Visit (VASSWS ) -- LAZARA SHANE ([id number]) 1940 F Date Time Provider Department 07/20/20 [...] them. Was evaluated in the past in [place] for her varicose veins however did not [...] breath Cardiovasc (more content not included)... Normal [facility] Vital Signs Date Time Vital Sign Value Performing Clinician [facility] 09-14-2024 15:59-0400 Body temperature 98 [degF] Dr. Marilee Jiang DO Work Phone: [facility] 09-14-2024 15:59-0400 Diastolic blood pressure 99 mm[Hg] Dr. Marilee Jiang DO Work Phone: [facility] 09-14-2024 15:59-0400 Heart rate 79 /min Dr. Marilee Jiang DO Work Phone: [facility] 09-14-2024 15:59-0400 Respiratory rate 14 /min Dr. Marilee Jiang DO Work Phone: [facility] 09-14-2024 15:59-0400 SaO2% (BldA) [Mass fraction] 98 % Dr. Marilee Jiang DO Work Phone: [facility] 09-14-2024 15:59-0400 Systolic blood pressure 165 mm[Hg] Dr. Marilee Jiang DO Work Phone: [facility] 09-14-2024 13:11-0400 Body height 157.[address] Marilee Jiang DO Work Phone: [facility] 08-03-2023 23:47-0400 Body temperature 96.5 [degF] [facility] 08-03-2023 23:47-0400 Diastolic blood pressure 75 mm[Hg] [facility] 08-03-2023 23:47-0400 Heart rate 73 /min [facility] 08-03-2023 23:47-0400 Respiratory rate 16 /min [facility] 08-03-2023 23:47-0400 SaO2% (BldA) [Mass fraction] 98 % [facility] 08-03-2023 23:47-0400 Systolic blood pressure 174 mm[Hg] [facility] 08-03-2023 21:41-0400 Body height 160.02 cm [facility] 08-03-2023 21:41-0400 Body mass index (BMI) [Ratio] 42.7 kg/m2 [facility] 08-03-2023 21:41-0400 Body weight 109.6 kg [facility] 06-02-2023 01:29-0500 Diastolic blood pressure 68 mm[Hg] Dr. Marilee Jiang Work Phone: [facility] 06-02-2023 01:29-0500 Heart rate 72 /min Dr. Marilee Jiang Work Phone: [facility] 06-02-2023 01:29-0500 Respiratory rate 18 /min Dr. Marilee Jiang Work Phone: [facility] 06-02-2023 01:29-0500 SaO2% (BldA) [Mass fraction] 97 % Dr. Marilee Jiang Work Phone: [facility] 06-02-2023 01:29-0500 Systolic blood pressure 140 mm[Hg] Dr. Marilee Jiang Work Phone: [facility] 06-01-2023 22:24-0500 Body height 158.[address] Marilee Jiang Work Phone: [facility] 06-01-2023 22:24-0500 Body mass index (BMI) [Ratio] 43.5 kg/m2 Dr. Marilee Jiang Work Phone: [facility] 06-01-2023 22:24-0500 Body temperature 97.4 [degF] Dr. Marilee Jiang Work Phone: [facility] 06-01-2023 22:24-0500 Body weight 109.[address] Marilee Jiang Work Phone: [facility] 01-01-2023 13:15-0400 Body height 154.[address] Marilee Jiang Work Phone: [facility] 01-01-2023 13:15-0400 Body weight 106.[address] Marilee Jiang Work Phone: [facility] 12-22-2022 00:09-0400 Body weight 109.76 kg [facility] 11-29-2022 14:00-0400 Body height 154.94 cm [facility] 11-29-2022 14:00-0400 Body weight 109.76 kg [facility] 10-31-2022 10:30-0400 Body height 154.[address] Marilee Jiang Work Phone: [facility] 10-31-2022 10:30-0400 Body weight 110.[address] Marilee Jiang Work Phone: [facility] 08-28-2022 15:22-0400 Body mass index (BMI) [Ratio] 45.1 kg/m2 Dr. Marilee Jiang Work Phone: [facility] 08-28-2022 15:22-0400 Body weight 112.[address] Marilee Jiang Work Phone: [facility] 08-28-2022 15:22-0400 Diastolic blood pressure 74 mm[Hg] Dr. Marilee Jiang Work Phone: [facility] 08-28-2022 15:22-0400 Heart rate 76 /min Dr. Marilee Jiang Work Phone: [facility] 08-28-2022 15:22-0400 SaO2% (BldA) [Mass fraction] 97 % Dr. Marilee Jiang Work Phone: [facility] 08-28-2022 15:22-0400 Systolic blood pressure 162 mm[Hg] Dr. Marilee Jiang Work Phone: [facility] 03-22-2022 10:47-0500 Diastolic blood pressure 54 mm[Hg] Dr. Marilee Jiang Work Phone: [facility] 03-22-2022 10:47-0500 Heart rate 87 /min Dr. Marilee Jiang Work Phone: [facility] 03-22-2022 10:47-0500 Respiratory rate 22 /min Dr. Marilee Jiang Work Phone: [facility] 03-22-2022 10:47-0500 SaO2% (BldA) [Mass fraction] 100 % Dr. Marilee Jiang Work Phone: [facility] 03-22-2022 10:47-0500 Systolic blood pressure 143 mm[Hg] Dr. Marilee Jiang Work Phone: [facility] 03-22-2022 08:16-0500 Body height 157.[address] Marilee Jiang Work Phone: [facility] 03-22-2022 08:16-0500 Body mass index (BMI) [Ratio] 42 kg/m2 Dr. Marilee Jiang Work Phone: [facility] 03-22-2022 08:16-0500 Body temperature 96.4 [degF] Dr. Marilee Jiang Work Phone: [facility] 03-22-2022 08:16-0500 Body weight 104.[address] Marilee Jiang Work Phone: [facility] 02-27-2022 15:29-0500 Body height 157.[address] Marilee Jiang Work Phone: [facility] Work Phone: 02-27-2022 15:29-0500 Body mass index (BMI) [Ratio] 43.3 kg/m2 Dr. Marilee Jiang Work Phone: [facility] 11-07-2022 15:29-0500 Body weight 107.[address] Marilee Jiang Work Phone: [facility] 02-27-2022 15:29-0500 Diastolic blood pressure 70 mm[Hg] Dr. Marilee Jiang Work Phone: [facility] 02-27-2022 15:29-0500 Heart rate 59 /min Dr. Marilee Jiang Work Phone: [facility] 02-27-2022 15:29-0500 SaO2% (BldA) [Mass fraction] 96 % Dr. Marilee Jiang Work Phone: [facility] 02-27-2022 15:29-0500 Systolic blood pressure 161 mm[Hg] Dr. Marilee Jiang Work Phone: [facility] Encounters Encounter Date Encounter Type Care Provider Facility Start: 02-27-2025 End: 02-27-2025 ambulatory Marilee Jiang Facility:[facility] Start: 12-29-2024 End: 12-29-[address] Marilee Jiang DO Work Phone: -Laboratory Specimen Start: 12-29-2024 End: 12-29-[address] Mrailee Jiang DO -Laboratory Specimen Work Phone: Start: 12-29-2024 End: 12-29-2024 ambulatory Marilee Jiang Facility:[facility] Start: 11-28-2024 End: 11-28-[address] 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 Marilee Jiang DO Work Phone: -Radiology [facility] Start: 10-31-2024 End: 10-31-2024 Patient encounter procedure Darryl Lackey DO -Radiology [facility] Work Phone: Start: 10-31-2024 End: 10-31-2024 ambulatory Darryl [place] Facility:[facility] Start: 10-21-2024 Non-patient / Non-visit Dr. Gem Gamboa MD -[facility] Work Phone: Start: 10-16-2024 End: 10-16-[address] Marilee Jiang DO Work Phone: -Laboratory Specimen Start: 10-16-2024 End: 10-16-[address] Marilee Jiang DO -Laboratory Specimen Work Phone: Start: 10-16-2024 End: 10-16-2024 ambulatory Marilee Jiang Facility:[facility] Start: 09-14-2024 End: 09-14-2024 Emergency department patient visit Dr. Marilee Jiang DO Work Phone: -Emergency Department Work Phone: Start: 08-28-2024 End: 08-28-2024 Patient encounter procedure Darryl Lackey DO -[facility] Work Phone: Start: 08-28-2024 End: 08-28-2024 ambulatory Darryl [place] Facility:[facility] Start: 07-16-2024 End: 07-16-[address] Marilee Jiang DO Work Phone: [facility] Work Phone: Start: 07-16-2024 End: 07-16-[address] Marilee Jiang DO -Laboratory, [facility] Start: 07-16-2024 End: 07-16-2024 ambulatory Marilee Jiang Facility:[facility] Start: 06-17-2024 End: 06-17-[address] Marilee Jiang DO Work Phone: [facility] Work Phone: Start: 06-17-2024 End: 06-17-[address] Gem Gamboa MD -Cat Scan, [facility] Work Phone: Start: 06-17-2024 End: 06-17-2024 ambulatory Gem Gamboa Facility:[facility] Start: 06-03-2024 End: 06-03-[address] Gem Gamboa MD -Laboratory, [place] Work Phone: Start: 06-03-2024 End: 06-03-2024 ambulatory Marilee Stevenancy Facility:[facility] Start: 05-13-2024 End: 05-13-[address] Marilee ALVARADOCat Rafy, [facility] Work Phone: Start: 05-12-2024 End: 05-13-[address] [facility] [place] Facility:[facility] Start: 05-12-2024 Non-patient / Non-visit Dr. Todd Lobo MD -[facility] Start: 05-12-2024 End: 05-12-[address] Marilee Jiang DO -Cardiovascular Services Work Phone: Start: 05-12-2024 End: 05-12-[address] [facility] [place] Facility:[facility] Start: 05-05-2024 End: 05-05-[address] Marilee ALVARADOLaboratory [place] Work Phone: Start: 05-05-2024 End: 05-05-2024 ambulatory Marilee Malnancy Facility:[facility] Start: 04-24-2024 End: 04-24-[address] Marilee [facility]VARADOLaboratory [place] Work Phone: Start: 04-24-2024 End: 04-24-2024 ambulatory Marilee Apolinar Facility:[facility] Start: 04-21-2024 End: 04-21-[address] Marilee Jiang DO -Laboratory [place] Work Phone: Start: 04-21-2024 End: 04-21-2024 ambulatory Marilee Jiang Facility:[facility] Start: 04-15-2024 End: 04-15-[address] Marilee Jiang DO -Outpatient Breast Imaging Work Phone: Start: 04-15-2024 End: 04-15-2024 ambulatory Marilee Jiang Facility:[facility] Start: 08-03-2023 End: 08-03-2023 Emergency department patient visit [facility]-Emergency Department Work Phone: Start: 06-18-2023 End: 06-18-[address] Marilee Jiang Work Phone: [facility] Work Phone: Start: 06-18-2023 End: 06-18-[address] Marilee Jiang Work Phone: [facility] Work Phone: Start: 06-01-2023 End: 06-02-2023 Emergency department patient visit Dr. Marilee Jiang Work Phone: [facility]-Emergency Department Work Phone: Start: 04-24-2023 End: 04-24-[address] Marilee Jiang Work Phone: [facility] Work Phone: Start: 04-24-2023 End: 04-24-[address] Marilee Jiang Work Phone: [facility]-Sleep Lab Work Phone: Start: 04-20-2023 End: 04-20-[address] Marilee Jiang Work Phone: [facility] Work Phone: Start: 04-20-2023 End: 04-20-[address] Marilee Jiang Work Phone: [facility] Work Phone: Start: 04-03-2023 End: 04-03-[address] Marilee Jiang Work Phone: [facility] Work Phone: Start: 04-03-2023 End: 04-03-[address] Marilee Jiang Work Phone: [facility]-Outpatient Breast Imaging Work Phone: Start: 03-30-2023 End: 03-30-2023 Admission to same day surgery center Dr. Marilee Jiang Work Phone: [facility]-Pre-Admission Testing Work Phone: Start: 03-30-2023 End: 03-30-[address] Marilee Jiang Work Phone: [facility] Work Phone: Start: 02-26-2023 End: 02-26-[address] Marilee Jiang Work Phone: [facility] Work Phone: Start: 01-18-2023 End: 01-18-[address] Marilee Jiang Work Phone: [facility]-Laboratory, Specimen Work Phone: Start: 01-01-2023 End: 01-20-[address] Marilee Jiang Work Phone: [facility]-Nutritional Services Work Phone: Start: 01-01-2023 Registered Recurring [facility]-Nutritional Services Work Phone: Start: 11-29-2022 End: 12-21-2022 Discharged Recurring [facility]-Nutritional Services Work Phone: Start: 11-01-2022 End: 11-01-[address] Marilee Jiang Work Phone: [facility] Work Phone: Start: 11-01-2022 End: 11-01-[address] Marilee Jiang Work Phone: [facility] Work Phone: Start: 10-31-2022 End: 11-20-[address] Marilee Jiang Work Phone: [facility] Work Phone: Start: 10-31-2022 End: 11-20-[address] Marilee Jiang Work Phone: [facility]-Diabetic Clinic Work Phone: Start: 10-31-[address] Marilee Jiang Work Phone: [facility]-Diabetic Clinic Work Phone: Start: 10-30-2022 End: 10-30-2022 [facility] Start: 10-30-2022 End: 10-30-2022 Discharged Recurring [facility]-Physical Therapy Work Phone: Start: 10-30-[address] Marilee Jiang Work Phone: [facility]-Physical Therapy Work Phone: Start: 09-25-2022 End: 09-25-[address] Marilee Jiang Work Phone: [facility] Start: 08-28-2022 End: 08-28-[address] Marilee Jiang Work Phone: [facility] Work Phone: Start: 07-24-2022 Non-patient / Non-visit Dr. Marilee Jiang Work Phone: [facility] Start: 07-24-[address] Marilee rosario Work Phone: [facility]-Cardiovascular Services Work Phone: Start: 04-25-2022 End: 04-25-[address] Marilee Jiang Work Phone: [facility] Work Phone: Start: 04-25-2022 End: 04-25-[address] Marilee Jiang Work Phone: [facility] Start: 04-20-2022 End: 04-20-[address] Marilee Jiang Work Phone: [facility] Work Phone: Start: 04-20-2022 End: 04-20-[address] Marilee Jiang Work Phone: [facility] Start: 03-30-2022 End: 03-30-[address] Marilee Jiang Work Phone: [facility] Work Phone: Start: 03-30-2022 End: 03-30-[address] Marilee Jiang Work Phone: [facility]-Outpatient Breast Imaging Start: 03-22-2022 End: 03-22-2022 Emergency department patient visit Dr. Marilee Jiang Work Phone: [facility]-Emergency Department Start: 02-27-2022 End: 02-27-[address] Marilee Jiang Work Phone: [facility] Work Phone: Start: 02-27-2022 End: 02-27-[address] Marilee Jiang Work Phone: [facility]-Physical Therapy Start: 02-27-2022 End: 02-27-[address] Marilee Jiang Work Phone: [facility] Gastroenterology Procedures Date Procedure Procedure Detail [...] Date Care Activity Detail Author Start: 09-14-2024 [facility] Start: 08-03-2023 [facility] Start: 06-02-2023 [facility] Patient Education [facility] Work Phone: Patient referral [facility] Work Phone: Immunizations Immunization Date Immunization Notes Care Provider Fa cility 06-02-2023 tetanus toxoid, redu pedro pablo diphtheria toxoid, and acellular pertussis vaccine, adsorbed Dr. Marilee Jiang Work Phone: [facility] 01-08-[address] Marilee Jiang Work Phone: [facility] Payers Date Payer Category Payer Self-pay [id number] 2024 Unknown [id number] 2006 Medicare [id number] Private Health Insurance [id number] Self-pay SELF PAY BY [employer] REQUEST [id number] Unknown [id number] 62 Unknown [id number] [id number] 62 Unknown [id number] 2.16.840.1.219285.3.579.2.4 62 Unknown [id number] 2.16.840.1.147006.3.579.2.4 62 Unknown [id number] 2.16.840.1.545184.3.579.2.4 62 Unknown [id number] 2.16.840.1.742274.3.579.2.4 62 Unknown [id number] 2.16.840.1.214323.3.579.2.4 62 Unknown [id number] 2.16.840.1.745237.3.579.2.4 62 Unknown [id number] 2.16.840.1.096251.3.579.2.4 62 Unknown [id number] 2.16.840.1.433458.3.579.2.4 62 Unknown [id number] 2.16.840.1.577181.3.579.2.4 62 Unknown [id number] 2.16.840.1.025366.3.579.2.4 62 Unknown [id number] 2.16.840.1.951862.3.579.2.4 62 Unknown [id number] 2.16.840.1.733634.3.579.2.4 62 Unknown [id number] 2.16.840.1.876862.3.579.2.4 62 Unknown [id number] 2.16.840.1.395929.3.579.2.4 62 Unknown [id number] 2.16.840.1.154650.3.579.2.4 62 Social History Date Type Detail Facility Start: 02-27-2022 End: 02-26-2023 Tobacco smoking status NHIS Unknown if ever smoked [facility] Start: 10-05-2020 None [facility] Start: 10-05-2020 Non-smoker [facility] Start: 1940 Sex Assigned At Female [facility] Start: 01-02-2024 End: 09-14-2024 Tobacco smoking status NHIS Ex-smoker (finding) [facility] Start: 07-02-2024 End: 07-21-2024 Sex Female (finding) [facility] Mental Status Date Assessment Result Facility 03-22-2022 Cognitive function Level Of Cons ciousness Awake;Alert;Appropriate;Follow s Commands [facility] Work Phone: Clinical Notes 07-20-2020 to 10-31-2024 Note Date & Type Note Facility 10-31-2024 Radiology Diagnostic study note [facility] Imaging Services [address] [place] [address] Esophagus Dual Contrast MR#: [id number] Acct: [id number] Name: LAZARA SHANE Rep #: [id number] : 1940 F 84 From: Jose Dodge MD PCP: Dr. Marilee Jiang DO Status: REG CLI Study:Esophagus Dual Contrast Date of Exam: 10/31/24 Exam# [id number] Ordering Dr: Sony Lackey DO EXAM: Air-contrast [...] Dual Contrast IMPRESSION: Gastroesophageal reflux. Reading Location: [facility] CC: Dr. 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 Marilee Jiang DO Status: REG ER Study:Lumbar Spine 2 or 3 Views Date of Exam: 09/14/24 Exam# [id number] Ordering Dr: Jay Patel DO PROCEDURE: LUMBAR [...] Patel DO; Dr. Marilee Jiang DO ~ Set Up Mechanic Coil Winding Machines: Signed [facility] 09-14-2024 Discharge summary Note Date/Time September 14, 2024 4:07pm [facility] Medical Records Department [address] [place] [address] Emergency Department Summary 09/14/24 MR#: [id number] Acct: [id number] Name: LAZARA SHANE Rep #:[id number] : 1940 84 From: Jay Amado PCP: [...] bladder changes. Patient denies any saddle anesthesia. [facility] Medical History Diarrhea Diabetes Gastroparesis Unsteady [...] detected. Other findings as above [facility] of the lumbar spine were obtained. [...] Care Provider] - 5-7 Days Print Language: Vincentian Disposition Disposition: Home, Self Care What to do if you have Problems For any increased pain, shortness of breath, bleeding, nausea or vomiting, chestpain, or any unexpected problems, contact your Primary Care Provider. Call [facility] ([phone]) or report to the closest Emergency Room. Call 911 if necessary. 09/14/24 1607 <Electronically signed by Jay Patel DO> Cosigner Signature (if applicable): CC: Dr. Marilee Jiang DO ~ Signed [facility] Work Phone: 1(350) 927-414705-08-2025 Evaluation note* Diagnosis Onset Date Resolution Status Admit Date Dysphagia noneactive August 28, 2024 3:16pm [facility] Work Phone: 1(691) 566-615202-26-2025 Radiology Diagnostic study note [facility] Imaging Services [address] [place], [place] [address] Abdomen/Pelvis without Cont MR#: [id number] Acct: [id number] Name: LAZARA SHANE Rep #: [id number] : 1940 F 83 From: Jose Dodge MD PCP: Dr. Marilee Jiang DO Status: REG CLI Study:Abdomen/Pelvis without Cont Date of Exa m: 06/17/24 Exam# [id number] Ordering Dr: Gem Gamboa MD PROCEDURE: ABDOMEN/PELVIS [...] use of iterative reconstruction technique). Reading Location: [id number] CC: Dr. Gem Gamboa MD; Dr. 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 Author Type: Physician Type: Progress Notes Filed: 11/02/2020 4:20 PM Note Text: This office note has been dictated. Socorro Hyatt, [facility]07-13-2021 NoteHNO ID: [id number] Author: Socorro Hyatt DO Service: Vascular Surgery Author Type: Physician Type: Progress Notes Filed: 11/08/2020 9:50 AM Note Text: NAME: LAZARA SHANE [facility] NO: [id number] DATE OF SERVICE: 11/02/2020 Subjective: Mrs. Shane [...] plan. Socorro Hyatt D.O. KB/089 Audio #: [id number] Date Dictated: 11/02/2020 14:36:42 Date Typed: 11/06/2020 09:07:23 Date Revised:[facility]03-30-2021 NoteHNO ID: [id number] Author: Socorro Hyatt Service: ? Author Type: [...] them. Was evaluated in the past in [place] for her varicose veins however did not [...] dysuria, frequency, or in (more content not included)...[facility] Diagnosis Onset Date Resolution Status Gastroparesis acute IBS (irritable bowel syndrome) acute Gastroesophageal reflux disease [facility] Work Phone: Evaluation note* Diagnosis Onset Date Resolution Status Gastroesophageal reflux disease chronic IBS (irritable bowel syndrome) [facility] Work Phone: Evaluation noteNo assessment information available [facility] Work Phone: Evaluation note* Diagnosis Onset Date Resolution Status Diabetes acute Diarrhea acute Gastroesophageal reflux disease chronic IBS (irritable bowel syndrome) chronic [facility] Work Phone: Hospital Discharge instructions Additional Instructions Recommend decreasing insulin from 20 units in the morning to 15 units.[facility] Work Phone: Reason for referral (narrative)No [facility] for [facility] Work Phone: Summary Purpose Family History [...] No November 08, 2017 9:57pm Power of Typewriter Repairer No November 08 8 9:57pm Advance Directive Response Recorded Date/ Time Advance Directives No March 10:47am Living Will No March 22, 2 022 8:33am Power of Typewriter Repairer No March 22, 2022 8:33am Advance Directive Response Recorded Date/ Time Advance Directives No March 11:47am Living Will No March 22, 2 022 9:33am Power of Typewriter Repairer No March 22, 2022 9:33am Advance Directive Response Recorded Date/ Time Advance Directives No March 10:47am Living Will No June 01 10:30pm Power of Typewriter Repairer No June 01, 2023 10:30pm Advance Directive Response Recorded Date/ Time Advance Directives No March 11:47am Living Will No August 03, 2023 11:47pm Power of Typewriter Repairer No August 02 11:47pm Advance Directive Response Recorded Date/ Time Advance Directives No March 11:47am Advance Directive Response Recorded Date/ Time Do you have a Healthcare Power of Typewriter Repairer? No September 14, 2024 1:46pm Advance Directives [...] section and content) DATE CREATED AUTHOR 05/22/2021 [facility] DATE CREATED AUTHOR AUTHOR'S ORGANPETR ATION 03/04/2025 [place] [facility] Goals (unrecognized section and content) Goals [...] Provider, Referring P rovider Active Eloisa Church SEAT SCOOPER MACHINE, SEAT SCOOPER MACHINE-C Attending Provider Active Team Status: Inactive Member [...] Inactive Member Role Status Dates Dr. Marilee Jaing DO Primary Care Provide r, Attending Provider, [...] Inactive Member Role/Relationship Status Dates Dr. Marilee Jaing DO Primary Care Provider Active Start: September [...] BE BASED ON THE PRIMARY CLINICAL RECORDS. [facility] [employer] provides no warranty or guarantee of the accuracy or completeness of information in this document.
--- NOTE | 2025-03-15 06:54 | ECHOD_ITS ---
Reason For Study Reason For Study: DYSPNEA/SOB Procedure This was a 2D Doppler, Color Flow transthoracic echocardiogram. Exam performed portable in patient room. Left Ventricle Normal LV size. Mild concentric left ventricular hypertrophy. Left ventricular systolic function is normal. The left ventricular ejection fraction is 65 %. Stage 1 diastolic dysfunction. No regional wall motion abnormalities noted. Right Ventricle Normal RV size. Normal systolic function. Atria Normal left atrium. Normal right atrium. Mitral Valve There is mild to moderate mitral annular calcification. Mild-Moderate (1-2+) eccentric mitral valve insufficiency. Tricuspid Valve Normal tricuspid valve. Mild-Moderate (1-2+) tricuspid valve insufficiency. Pulmonary artery systolic pressure is 40 mmHg. Aortic Valve Trisinus/trileaflet aortic valve. Moderate focal aortic valve calcification. Peak aortic valve gradient 50 mmHg. Mean aortic valve gradient 32 mmHg. Moderate aortic stenosis. Great Vessels Mildly dilated aortic root. The pulmonary artery is normal size. Inferior vena cava collapse with respiration. Pericardium/Pleural No pericardial effusion. MMode/2D Measurements & Calculations LVIDd: 3.3 cm IVSd: 1.2 cm LVOT diam: 1.9 cm LVIDs: 2.5 cm LVPWd: 1.2 cm LVOT area: 2.9 cm2 RVDd: 4.0 cm FS: 25.9 % asc Aorta Diam: 3.6 cm LAV(MOD-bp): 61.0 ml LVAd ap4: 27.6 cm2 LAV(MOD-bp) Indexed: 30.6 ml/m2 LVLd ap4: 7.8 cm LAV(MOD-sp2): 61.1 ml EDV(MOD-sp4): 78.9 ml LAV(MOD-sp4): 54.3 ml EDV(sp4-el): 83.4 ml LVAs ap4: 15.1 cm2 LVLs ap4: 6.4 cm ESV(MOD-sp4): 29.5 ml ESV(sp4-el): 29.9 ml EF(MOD-sp4): 62.6 % EF(sp4-el): 64.1 % SV(MOD-sp4): 49.4 ml SV(MOD-sp2): 101.5 ml LVAd ap2: 38.8 cm2 LVLd ap2: 8.6 cm SI(MOD-sp4): 24.8 ml/m2 SI(MOD-sp2): 51.0 ml/m2 EDV(MOD-sp2): 142.9 ml EDV(sp2-el): 149.7 ml LVAs ap2: 18.5 cm2 LVLs ap2: 7.0 cm ESV(MOD-sp2): 41.4 ml ESV(sp2-el): 41.6 ml EF(MOD-sp2): 71.0 % SV(sp4-el): 53.4 ml LA A4 area: 20.1 cm2 LA dimension(2D): 4.0 cm TAPSE: 2.3 cm RA A4 area: 16.3 cm2 Time Measurements MV dec time: 0.26 sec Doppler Measurements & Calculations MV E max lars: 104.4 cm/sec Lat Peak E' Lars: 6.3 cm/sec Med Peak E' Lars: 7.4 cm/sec MV A max lars: 116.8 cm/sec E/E' lat: 16.5 E/E' med: 14.1 MV E/A: 0.89 MV V2 max: 122.4 cm/sec MV P1/2t max lars: 94.4 cm/sec Ao V2 max: 350.8 cm/sec MV max P.0 mmHg MV P1/2t: 85.8 msec Ao max P.3 mmHg MV V2 mean: 67.1 cm/sec MV dec slope: 322.2 cm/sec2 Ao V2 mean: 272.0 cm/sec MV mean P.1 mmHg Ao mean P.0 mmHg MV V2 VTI: 40.1 cm MVA(P1/2t): 2.6 cm2 Ao V2 VTI: 88.8 cm MVA(VTI): 1.8 cm2 AV (velocity ratio): 0.28 ÓSCAR(I,D): 0.81 cm2 ÓSCAR(V,D): 0.91 cm2 LV V1 max: 110.9 cm/sec SV(LVOT): 72.2 ml PA V2 max: 116.8 cm/sec LV V1 max P.9 mmHg LV V1 mean P.0 mmHg LV V1 mean: 82.7 cm/sec LV V1 VTI: 25.0 cm TR max lars: 298.8 cm/sec TR max P.7 mmHg ECHO/Echo Complete Interpretation Summary Normal LV size. Left ventricular systolic function is normal. Mild concentric left ventricular hypertrophy. The left ventricular ejection fraction is 65 %. Stage 1 diastolic dysfunction. There is mild to moderate mitral annular calcification. Mild-Moderate (1-2+) eccentric mitral valve insufficiency. Mean aortic valve gradient 32 mmHg. Moderate aortic stenosis. Ordering Physician: Dasha Rodrigez Referring Physician: Marilee De Leon Performed By: Ashley Boothe RDCS
[2025-03-15] MEDS: Heparin Injection (Vial) 5,000 UNIT/ML VIAL 4000 UNIT IV (07:17)
--- NOTE | 2025-03-15 07:34 | PN.HOSP_ITS ---
Reason for Visit Chief Complaint: Shortness of breath Subjective Subjective Feeling well. Denies chest pain nor shortness of breath. Objective Data Objective Data Vital Signs: Vital Signs Temp Pulse Resp BP Pulse Ox O2 Del Method 36.6 C 73 20 H 142/73 H 97 Room Air 03/15/25 07:00 03/15/25 07:00 03/15/25 07:00 03/15/25 07:00 03/15/25 07:00 03/15/25 07:00 Oxygen Delivery Method Room Air Weight: 91.8 kg Body Mass Index (BMI) 37.0 Lab / Micro Data 03/15/25 07:36 03/15/25 02:52 Labs: Laboratory Results - last 24 hr 03/15/25 02:52: WBC 9.5, RBC 3.82 L, Hgb 10.5 L, Hct 32.2 L, MCV 84.3, MCH 27.5, MCHC 32.6, RDW Std Deviation 47.4 H, RDW Coeff of Adalid 15.5 H, Plt Count 296, MPV 8.9, Immature Gran % (Auto) 1.100 H, Neut % (Auto) 66.0, Lymph % (Auto) 21.0, [place] % (Auto) 7.8, Eos % (Auto) 3.6, Baso % (Auto) 0.5, Absolute Neuts (auto) 6.3, Absolute Lymphs (auto) 1.99, Nucleated RBC % 0, Sodium 134, Potassium 3.8, Chloride 98, Carbon Dioxide 25.4, Anion Gap 10, BUN 20 H, Creatinine 0.60 L, Estim Creat Clear Calc 60.39, Est GFR (MDRD) Non-Af 89, BUN/Creatinine Ratio 33.1 H, Glucose 242 H, Lactic Acid 1.1, Calcium 9.0, Total Bilirubin 0.33, AST 36 H, ALT 42 H, Alkaline Phosphatase 73, Troponin T High Sens 22 H, NT pro BNP II 1074, Total Protein 7.3, Albumin 3.6, Globulin 3.7, Albumin/Globulin Ratio 1.0 03/15/25 04:57: Troponin T Hi Sens 2 Hr 43 H Micro: Microbiology 03/15/25 02:50 Mucosa - Nose SARS-CoV-2, Influenza & RSV (PCR) - Final Radiography Diagnostic Testing: Radiology Impression Chest X-Ray 03/15/25 03:10 IMPRESSION: Interstitial opacifications and left pleural effusion suggest pulmonary vascular congestion but could also be seen with a diffuse inflammatory process. Follow-up recommended to ensure resolution. Right lower lung zone nodule. New since the prior study, advise follow up. Reading Location: [place] [id number] Chest CTA 03/15/25 05:33 IMPRESSION: No evidence of pulmonary embolism. Bilateral small pleural effusion with contrast reflux to the hepatic vein suggestive of right heart failure. Reading Location: REPLACED BY [facility] Physical Exam Const alert and no apparent distress HEENT head/scalp atraumatic and moist oral mucous membranes Resp normal respiratory effort, no retractions, no use of accessory muscles and clear to auscultation bilaterally Cardio regular rate, regular rhythm, S1 normal heart sound and S2 normal heart sound GI normal to inspection, nondistended, normoactive bowel sounds, soft to palpation, non-tender and non-distended Extremity General Extremity: edema bilateral lower extremity Details: trace Assessment & Plan Assessment/Plan (1) Dyspnea: (2) Elevated troponin: (3) New onset of congestive heart failure: (4) Orthopnea: (5) Hyperglycemia: (6) Left bundle branch block: (7) First degree heart block: PLAN: Plan Chest pain, possible NSTEMI * minimal troponin elevation from 22 to 43 to 49 * on heparin gtt * on ASA * check stress test * New LBBB, at least from 2018. Pleural effusions, suspect AE CHF. * on IV furosemide * check echo Chronic medical conditions: * DM-2 with hyperglycemia- Hold home oral agents to include pioglitazone and glimepiride- Continue Lantus but increase to 22 units from 18- SSI high-dose- Accu-Cheks as ordered- Cardiac/carb controlled diet * Essential hypertension/hyperlipidemia- Continue home losartan- Continue home statin but changed from pravastatin 10 mg daily to atorvastatin 40 mg daily- As needed hydralazine available * GERD- Continue PPI * Overactive bladder- Continue fesoterodine- Follows outpatient with Dr. 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 Charges/Coding Visit Charges Inpatient E&M: 12291 Subs Hosp L2
[2025-03-15 07:51] LABS: Hematocrit 34.0 % (37-47); Hemoglobin 10.9 g/dL (12.0-15.0); Immature Granulocytes Count 0.140 X10^3/uL (0.0-0.0); Mean Corp Hgb Conc 32.1 g/dL (32-36); Mean Corpuscular Volume 83.5 fL (81-99); Mean Platelet Vol. 8.6 fl (6.2-12.0); NRBC Flagged by Analyzer 0 % (0-5); Platelet Count 322 K/mm3 (150-450); RBC Distribution Width CV 15.3 % (11.6-14.6); RBC Distribution Width SD 46.5 fl (35.1-43.9); Red Blood Count 4.07 M/mm3 (4.2-5.4); White Blood Count 11.5 K/mm3 (4.4-11.0)
--- NOTE | 2025-03-15 07:52 | EKG12_ITS ---
Test Reason : DYSP Blood Pressure : */* mmHG Vent. Rate : 67 BPM Atrial Rate : 67 BPM P-R Int : 190 ms QRS Dur : 160 ms QT Int : 476 ms P-R-T Axes : 34 12 107 degrees QTcB Int : 502 ms Normal sinus rhythm Left bundle branch block Abnormal ECG When compared with ECG of 15-Mar-2025 02:42, MANUAL COMPARISON REQUIRED DATA IS UNCONFIRMED Confirmed by LIGIA SOSA, BON ([id number]), department editor LOE GARY ([id number]) on 03/17/2025 10:27:06 AM Referred By: Confirmed By: BON STRONG MD
[2025-03-15] MEDS: HEPARIN/D5w 25,000 UNITS 25,000 UNITS/250 ML IV.SOLN. 12.1 UNITS CONT INF (08:08)
[2025-03-15 08:34] LABS: Prothrombin Time (Protime)PT. 13.7 SECONDS (11.7-14.9)
[2025-03-15 08:35] LABS: Partial Thromboplast Time 36.0 Seconds (24.1-36.2)
[2025-03-15 08:36] LABS: Troponin T High Sensitivity 49 ng/L (<=14)
[2025-03-15] MEDS: Aspirin E.C. 81 MG Tablet PO (08:44)
[2025-03-15] MEDS: BRIMONIDINE 0.15% 5 ML Bottle 1 DRP LEFT EYE ×2 (08:45→23:14)
--- NOTE | 2025-03-15 11:50 | PCM.CONS.C ---
Assessment & Plan Assessment/Plan (1) Non-ST elevation MA (NSTEMI): PLAN: -Troponin elevation in setting of LVH, ADHF, suspect Type II, but with multiple risk factors, needs cath -diuresis IV lasix 40mg one time -continue heparin drip, plan for cath tomorrow, consider also doing RHC -suspect there may be progression of aortic valve disease, will need repeat echo to assess -LBBB new compared to 2018, but no active chest pain, negative Sgarbossa criteria. -continue home losartan, atorvastatin -would benefit from SGLT2i at discharge (2) Left bundle branch block: (3) First degree heart block: (4) Elevated troponin: (5) Dyspnea: (6) Orthopnea: (7) Aortic stenosis: HPI Consult Data Date of Consult: 03/15/25 HPI Narrative Reason for Consultation: LBBB shortness of breat HPI Narrative: LAZARA SHANE, is a 84 F past medical history notable for hypertension, hyperlipidemia, moderate aortic stenosis, diastolic dysfunction, diabetes, obesity presenting with shortness of breath and orthopnea that started at 3 AM this morning. Reports she has had progressive shortness of breath with exertion over the past several weeks. No chest pain, lightheadedness, dizziness associate with this. Reports some swelling of her feet over this time period as well. Accompanied by daughter who aids in history. She lives with her daughter. In the ED labs notable for troponin from 22-43, mildly elevated BNP. [facility] Medical History Morbid obesity Diarrhea Diabetes Gastroparesis Unsteady gait Shortness of breath Asthma Home Medications ?Medication ?Instructions ?Recorded ?Last Taken ?Type ascorbic acid (vitamin C) 500 mg 500 mg PO DAILY supplement 11/08/17 11/07/17 20:00 History capsule brimonidine 0.15 % eye drops 1 drp BID damaged eye 11/08/17 11/08/17 08:00 History cyanocobalamin (vitamin B-12) 500 1 tab PO DAILY@0800 supplement 11/08/17 11/08/17 08:00 History mcg tablet glimepiride 4 mg tablet 4 mg PO BID diabetes 11/08/17 11/08/17 08:00 History insulin glargine 100 unit/mL [address] [facility] diabetes 11/08/17 11/07/17 20:00 History subcutaneous solution (Lantus U-100 Insulin) losartan 50 mg tablet 50 mg PO DAILY blood pressure 11/08/17 11/08/17 08:00 History multivitamin (Daily Multiple 1 ea PO DAILY supplement 11/08/17 11/08/17 08:00 History tablet) omega-3 fatty acids-fish oil 340 1 ea PO DAILY supplement 11/08/17 11/08/17 08:00 History mg-1,000 mg capsule (Fish Oil) pravastatin 10 mg tablet 10 mg PO QHS cholesterol 11/08/17 11/07/17 20:00 History pioglitazone 45 mg tablet (Actos) 45 mg PO DAILY 10/27/21 Unknown History desmopressin 0.2 mg tablet 0.2 mg PO QHS incontinence 02/27/25 Unknown History fesoterodine 4 mg tablet,extended 4 mg PO QDAY incontinence 02/27/25 Unknown History release 24 hr losartan 25 mg tablet 25 mg PO QDAY 02/27/25 Unknown History albuterol sulfate 90 mcg/actuation 2 puff inhalation Q4H PRN PRN 03/15/25 Unknown History aerosol inhaler shortness of breath or wheezing omeprazole 20 mg capsule,delayed 20 mg PO DAILY 03/15/25 Unknown History release Allergy/AdvReac Type Severity Reaction Status Date / Time levofloxacin (From Levaquin) Allergy Mild rash Verified 03/15/25 02:49 oxycodone Allergy Mild Swelling Verified 03/15/25 02:49 aspirin Allergy Rash Verified 03/15/25 02:49 codeine Allergy Rash Verified 03/15/25 02:49 NSAIDS (Non-Steroidal Allergy Rash Verified 03/15/25 02:49 Anti-Inflamma Penicillins Allergy Rash Verified 03/15/25 02:49 solifenacin (From Vesicare) Allergy Unknown Verified 03/15/25 02:49 Sulfa (Sulfonamide Allergy Rash Verified 03/15/25 02:49 Antibiotics) Family History Sister Breast cancer Mother CVA (cerebral vascular accident) Hypertension Father Diabetes Heart disease Surgical History History of knee replacement History of hysterectomy History of colonoscopy History of left inguinal hernia repair History of left inguinal hernia repair History of left inguinal hernia repair Social History household members: family housing: house Smoking Status: Former smoker alcohol intake: never substance use type: does not use Physical Exam Narrative Gen: A/ox3 NAD Neck + JVD Cardio: s1 audible, faint S2, harsh RUSB 4/6 murmur radiating to carotid Resp: crackles in b/l bases abd: soft nontender extrem: WWP hands and feet, 1+ edema b/l Skin: no wounds or ulcers Charges/Coding Multi Select Codes Visit Charges Office Visit/Consults: 32429 IP Consult L5 Objective Data Vital Signs: Vital Signs Temp Pulse Resp BP Pulse Ox O2 Del Method 97.8 F 73 20 H 142/73 H 97 Room Air 03/15/25 07:00 03/15/25 07:00 03/15/25 07:00 03/15/25 07:00 03/15/25 07:00 03/15/25 08:50 Oxygen Delivery Method Room Air Weight: 202 lb 6.15 oz Body Mass Index (BMI) 37.0 Lab / Micro Data 03/15/25 07:36 03/15/25 02:52 Labs: Laboratory Results - last 24 hr 03/15/25 02:52: WBC 9.5, RBC 3.82 L, Hgb 10.5 L, Hct 32.2 L, MCV 84.3, MCH 27.5, MCHC 32.6, RDW Std Deviation 47.4 H, RDW Coeff of Adalid 15.5 H, Plt Count 296, MPV 8.9, Immature Gran % (Auto) 1.100 H, Neut % (Auto) 66.0, Lymph % (Auto) 21.0, [place] % (Auto) 7.8, Eos % (Auto) 3.6, Baso % (Auto) 0.5, Absolute Neuts (auto) 6.3, Absolute Lymphs (auto) 1.99, Nucleated RBC % 0, Sodium 134, Potassium 3.8, Chloride 98, Carbon Dioxide 25.4, Anion Gap 10, BUN 20 H, Creatinine 0.60 L, Estim Creat Clear Calc 60.39, Est GFR (MDRD) Non-Af 89, BUN/Creatinine Ratio 33.1 H, Glucose 242 H, Lactic Acid 1.1, Calcium 9.0, Total Bilirubin 0.33, AST 36 H, ALT 42 H, Alkaline Phosphatase 73, Troponin T High Sens 22 H, NT pro BNP II 1074, Total Protein 7.3, Albumin 3.6, Globulin 3.7, Albumin/Globulin Ratio 1.0 03/15/25 04:57: Troponin T Hi Sens 2 Hr 43 H 03/15/25 07:05: POC Glucose 206 H 03/15/25 07:36: WBC 11.5 H, RBC 4.07 L, Hgb 10.9 L, Hct 34.0 L, MCV 83.5, MCH 26.8 L, MCHC 32.1, RDW Std Deviation 46.5 H, RDW Coeff of Adalid 15.3 H, Plt Count 322, MPV 8.6, Immature Gran % (Auto) 1.200 H, Neut % (Auto) 73.1 H, Lymph % (Auto) 15.6 L, [place] % (Auto) 8.0, Eos % (Auto) 1.6, Baso % (Auto) 0.5, Absolute Neuts (auto) 8.4 H, Absolute Lymphs (auto) 1.79, Nucleated RBC % 0, PT 13.7, INR 1.0, APTT 36.0, Hemoglobin A1c 7.7 H, Troponin T High Sens 49 H D Micro: Microbiology 03/15/25 02:50 Mucosa - Nose SARS-CoV-2, Influenza & RSV (PCR) - Final Cardiology Labs/Tests 03/15/25 02:52: WBC 9.5, RBC 3.82 L, Hgb 10.5 L, Hct 32.2 L, MCV 84.3, MCH 27.5, MCHC 32.6, Plt Count 296, MPV 8.9, Immature Gran % (Auto) 1.100 H, Neut % (Auto) 66.0, Lymph % (Auto) 21.0, [place] % (Auto) 7.8, Eos % (Auto) 3.6, Baso % (Auto) 0.5, Absolute Neuts (auto) 6.3, Nucleated RBC % 0, Sodium 134, Potassium 3.8, Chloride 98, Carbon Dioxide 25.4, Anion Gap 10, BUN 20 H, Creatinine 0.60 L, Est GFR (MDRD) Non-Af 89, BUN/Creatinine Ratio 33.1 H, Glucose 242 H, Lactic Acid 1.1, Calcium 9.0, Total Bilirubin 0.33 03/15/25 07:36: WBC 11.5 H, RBC 4.07 L, Hgb 10.9 L, Hct 34.0 L, MCV 83.5, MCH 26.8 L, MCHC 32.1, Plt Count 322, MPV 8.6, Immature Gran % (Auto) 1.200 H, Neut % (Auto) 73.1 H, Lymph % (Auto) 15.6 L, [place] % (Auto) 8.0, Eos % (Auto) 1.6, Baso % (Auto) 0.5, Absolute Neuts (auto) 8.4 H, Nucleated RBC % 0, PT 13.7, INR 1.0, APTT 36.0, Hemoglobin A1c 7.7 H Rhythm: EKG: ECHO: Stress Test: Cardiac Cath: PCI: CT Surgery: Holter monitor: EPS: PPM: CXR: Chest CT Scan: Radiography Diagnostic Testing: Radiology Impression Chest X-Ray 03/15/25 03:10 IMPRESSION: Interstitial opacifications and left pleural effusion suggest pulmonary vascular congestion but could also be seen with a diffuse inflammatory process. Follow-up recommended to ensure resolution. Right lower lung zone nodule. New since the prior study, advise follow up. Reading Location[facility] Chest CTA 03/15/25 05:33 IMPRESSION: No evidence of pulmonary embolism. Bilateral small pleural effusion with contrast reflux to the hepatic vein suggestive of right heart failure. Reading Location: [facility] Risk Score for UA/STEMI Assesmment (YES = 1) Risk Stratification Applicable: Yes Age > or = 65: Yes > or = 3 CAD risk factors (HTN, Hypercholesterolemia, Diabetes, family hx, current smoker): Yes Known CAD (Stenosis > or = 50%): No ASA used in past 7 days: Yes Severe angina (> or = 2 episodes in 24 hrs): No EKG ST change > or = 0.5mm: No Positive cardiac markers: Yes Score ZAYRA Risk Score of mortality/ recurrent ischemic event over the next 14 days: 4 = 19.9% - Intermediate
[2025-03-15 14:40] LABS: Partial Thromboplast Time 59.0 Seconds (24.1-36.2)
[2025-03-15 20:30] LABS: Partial Thromboplast Time 68.8 Seconds (24.1-36.2)
[2025-03-15] MEDS: Insulin Glargine-YFGN 100 UNIT/ML Pen 22 UNIT SC (23:13)
[2025-03-16] VITALS (14 sets, daily range): BP systolic 133–176; BP diastolic 46–73; PULSE 59–74; RESP 14–17; TEMP 36.4–37; O2SAT 94–100; BMI 40.4
[2025-03-16 03:42] LABS: Hematocrit 30.1 % (37-47); Hemoglobin 10.1 g/dL (12.0-15.0); Immature Granulocytes Count 0.090 X10^3/uL (0.0-0.0); Mean Corp Hgb Conc 33.6 g/dL (32-36); Mean Corpuscular Volume 82.7 fL (81-99); Mean Platelet Vol. 8.5 fl (6.2-12.0); NRBC Flagged by Analyzer 0 % (0-5); Platelet Count 294 K/mm3 (150-450); RBC Distribution Width CV 15.3 % (11.6-14.6); RBC Distribution Width SD 46.6 fl (35.1-43.9); Red Blood Count 3.64 M/mm3 (4.2-5.4); White Blood Count 9.7 K/mm3 (4.4-11.0)
[2025-03-16 04:06] LABS: AST(SGOT) 25 U/L (<=31); Alanine Aminotransfer ALT/SGPT 31 U/L (<=34); Albumin, Serum 3.3 g/dL (3.4-4.8); Alkaline Phosphatase 54 U/L (35-104); Anion Gap 9 (5-15); BUN 15 mg/dL (4-19); BUN/Creat Ratio 28.2 RATIO (10-20); Calcium,Total 9.2 mg/dL (7.6-11.0); Carbon Dioxide 29.2 mmol/L (21.0-32.0); Chloride 94 mmol/L (98-108); Cholesterol 110 mg/dL (<=200); Estimated Creatinine Clearance 59.17 ml/min (50-250); Globulin 3.5 g/dL (2.2-4.2); Glucose 144 mg/dL (70-99); Low Density Lipoprotein Calc. 53 mg/dL; Magnesium 1.9 mg/dL (1.5-2.2); Potassium 3.3 mmol/L (3.3-5.1); Triglycerides 74 mg/dL; Very Low Density Lipoprotein 15 mg/dL (5-40); cholesterol:hdl ratio screen 2.65
[2025-03-16 04:13] LABS: Partial Thromboplast Time 76.1 Seconds (24.1-36.2)
--- NOTE | 2025-03-16 05:55 | EKG12_ITS ---
Test Reason : AM EKG Blood Pressure : */* mmHG Vent. Rate : 66 BPM Atrial Rate : 66 BPM P-R Int : 192 ms QRS Dur : 164 ms QT Int : 484 ms P-R-T Axes : 47 8 99 degrees QTcB Int : 507 ms Normal sinus rhythm Left bundle branch block Abnormal ECG When compared with ECG of 15-Mar-2025 07:52, MANUAL COMPARISON REQUIRED DATA IS UNCONFIRMED Confirmed by LIGIA SOSA, BON ([id number]), telegraph editor LEO GARY ([id number]) on 03/17/2025 10:22:47 AM Referred By: Confirmed By: BON STRONG MD
[2025-03-16] MEDS: Aspirin E.C. 81 MG Tablet PO (06:22)
--- NOTE | 2025-03-16 08:48 | PN.CARD_ITS ---
Subjective Subjective Patient seen and evaluated. Underwent cardiac catheterization this morning. Objective Data Vital Signs: Vital Signs Temp Pulse Resp BP Pulse Ox O2 Del Method 97.9 F 64 14 149/55 H 97 Room Air 03/16/25 07:32 03/16/25 07:32 03/16/25 07:32 03/16/25 07:32 03/16/25 07:32 03/16/25 07:52 Oxygen Delivery Method Room Air Weight: 220 lb 14.451 oz Body Mass Index (BMI) 40.4 Intake & Output: Intake and Output for Last 24 Hours 03/14/25 03/15/25 03/16/25 23:59 23:59 23:59 Intake Total 155.08 / 155.08 81.77 / 81.77 Output Total 1450 / 1750 300 / 300 Balance -1294.92 / -1594.92 -218.23 / -218.23 Lab / Micro Data 03/16/25 03:24 03/16/25 03:24 Labs: Laboratory Results - last 24 hr 03/15/25 12:02: POC Glucose 170 H 03/15/25 14:17: APTT 59.0 H 03/15/25 17:13: POC Glucose 152 H 03/15/25 20:13: APTT 68.8 H 03/15/25 23:11: POC Glucose 133 H 03/16/25 03:24: WBC 9.7, RBC 3.64 L, Hgb 10.1 L, Hct 30.1 L, MCV 82.7, MCH 27.7, MCHC 33.6, RDW Std Deviation 46.6 H, RDW Coeff of Adalid 15.3 H, Plt Count 294, MPV 8.5, Immature Gran % (Auto) 0.900, Neut % (Auto) 43.5 L, Lymph % (Auto) 40.7, [place] % (Auto) 9.6, Eos % (Auto) 4.6, Baso % (Auto) 0.7, Absolute Neuts (auto) 4.2, Absolute Lymphs (auto) 3.94, Nucleated RBC % 0, APTT 76.1 H, Sodium 132 L, Potassium 3.3, Chloride 94 L, Carbon Dioxide 29.2, Anion Gap 9, BUN 15, C reatinine 0.53 L, Estim Creat Clear Calc 59.17, Est GFR (MDRD) Non-Af 92, B UN/Creatinine Ratio 28.2 H, Glucose 144 H, Calcium 9.2, Phosphorus 3.4, Magnesium 1.9, Total Bilirubin 0.41, AST 25, ALT 31, Alkaline Phosphatase 54, Total Protein 6.8, Albumin 3.3 L, Globulin 3.5, Albumin/Globulin Ratio 0.9, Triglycerides 74, Cholesterol 110, LDL Cholesterol, Calc 53, VLDL Cholesterol 15, HDL Cholesterol 42, Cholesterol/HDL Ratio 2.65, TSH 2.050 03/16/25 06:19: POC Glucose 146 H Micro: Microbiology 03/15/25 02:50 Mucosa - Nose SARS-CoV-2, Influenza & RSV (PCR) - Final Cardiology Labs/Tests 03/15/25 14:17: APTT 59.0 H 03/15/25 20:13: APTT 68.8 H 03/16/25 03:24: WBC 9.7, RBC 3.64 L, Hgb 10.1 L, Hct 30.1 L, MCV 82.7, MCH 27.7, MCHC 33.6, Plt Count 294, MPV 8.5, Immature Gran % (Auto) 0.900, Neut % (Auto) 43.5 L, Lymph % (Auto) 40.7, [place] % (Auto) 9.6, Eos % (Auto) 4.6, Baso % (Auto) 0.7, Absolute Neuts (auto) 4.2, Nucleated RBC % 0, APTT 76.1 H, Sodium 132 L, Potassium 3.3, Chloride 94 L, Carbon Dioxide 29.2, Anion Gap 9, BUN 15, C reatinine 0.53 L, Est GFR (MDRD) Non-Af 92, BUN/Creatinine Ratio 28.2 H, Glucose 144 H, Calcium 9.2, Phosphorus 3.4, Magnesium 1.9, Total Bilirubin 0.41, Triglycerides 74, Cholesterol 110, VLDL Cholesterol 15, HDL Cholesterol 42, Cholesterol/HDL Ratio 2.65 Rhythm: EKG: ECHO: Stress Test: Cardiac Cath: PCI: CT Surgery: Holter monitor: EPS: PPM: CXR: Chest CT Scan: Physical Exam Const alert and oriented x3 Orientation / Consciousness: awake Eyes PERRL Neck full ROM Carotids: normal carotid upstroke Chest inspection of chest normal Cardio regular rate and regular rhythm Heart Sounds: murmur systolic II/ harsh early left sternal border GI normal to inspection, nondistended, normoactive bowel sounds Extremity normal to inspection and no clubbing, cyanosis or edema Assessment & Plan Assessment/Plan (1) Aortic stenosis: PLAN: Aortic stenosis appears to be moderate at best at this time. Will repeat echocardiogram to reassess the above and depending on the findings further recommendations will be made. Her natruretic peptide corrected for age does not demonstrate congestive heart failure and based on her last echocardiogram it appears to be moderate. My suspicion is that the shortness of breath is likely secondary to uncontrolled hypertension Transvalvular aortic gradient is approximately 30 mmHg (2) Non-ST elevation NE (NSTEMI): PLAN: She does have a non-ST elevation myocardial infarction. Cardiac catheterization demonstrated the following: Mild calcification of the left main coronary artery Left anterior descending artery with moderate diffuse calcification Left circumflex artery with no high-grade stenosis Dominant right coronary artery with moderate to severe calcification and 50% mid segment stenosis Preserved left ventricular systolic function (3) Benign essential hypertension: PLAN: Her blood pressure does not appear to be well-controlled Recommend aggressive blood pressure control and optimization of medical therapy Can probably be optimized as an outpatient PLAN: Plan Can be likely discharged for outpatient follow-up. Later on today.
[2025-03-16] MEDS: BRIMONIDINE 0.15% 5 ML Bottle 1 DRP LEFT EYE ×2 (09:40→21:23)
[2025-03-16] MEDS: Metoprolol(XL)Succ 25 MG Tablet PO (09:41)
--- NOTE | 2025-03-16 10:20 | CASEMGMT ---
JAC MCWILLIAMS Face to Face with patient for initial transition planning/care coordination assessment. RN CM introduced self and role at [facility]. Patient lying in bed, alert and oriented, daughters at bedside. Patient willing to participate in assessment and is able to answer all questions appropriately. Care providers, pharmacy, and demographics verified. Strata: 3 PCP: Apolinar Specialists: Ziyad, TATO; Cooper, urologist Preferred Pharmacy: [facility] Insurance: [facility], MMO Prescription Benefit: yes Living Will/HPOA: none, interested in completing, SW notified LNOK: daughters Living Arrangements: Patient lives with daughter in a single story home with 5 steps and railing to enter the home. Patient states she is independent at home. Transportation: daughter DME/HHC: Patient has shower chair, raised toilet, grab bars, cane, walker, and glucometer with supplies at home. No previous SNF. Patient has had [facility] in the past. Patient wishes to discharge home, denies need for home health at this time. Patient states she has no further needs or concerns at this time. CM to follow for discharge planning needs that may arise. Disposition Plan: Patient to discharge home with family support and follow-up plans in place. Skye MELCHOR, RN, CM
[2025-03-16 10:24] LABS: Partial Thromboplast Time 47.3 Seconds (24.1-36.2)
--- NOTE | 2025-03-16 11:12 | PCM.PN.HOSP ---
Reason for Visit Chief Complaint: Shortness of breath Subjective Subjective Patient is an 84-year-old lady who presented with sudden onset of shortness of breath and unable to lay flat. Checks x-ray demonstrated bilateral pleural effusion was also found to have slightly elevated troponin admitted to monitored bed for further management Objective Data Objective Data Vital Signs: Vital Signs Temp Pulse Resp BP Pulse Ox O2 Del Method 98 F 67 15 158/63 H 99 Room Air 03/16/25 11:00 03/16/25 11:00 03/16/25 11:00 03/16/25 11:00 03/16/25 11:00 03/16/25 11:00 Oxygen Delivery Method Room Air Weight: 100.2 kg Body Mass Index (BMI) 40.4 Intake & Output: Intake and Output for Last 24 Hours 03/14/25 03/15/25 03/16/25 23:59 23:59 23:59 Intake Total 155.08 / 155.08 81.77 / 81.77 Output Total 1450 / 1750 300 / 300 Balance -1294.92 / -1594.92 -218.23 / -218.23 Lab / Micro Data 03/16/25 03:24 03/16/25 03:24 Labs: Laboratory Results - last 24 hr 03/15/25 12:02: POC Glucose 170 H 03/15/25 14:17: APTT 59.0 H 03/15/25 17:13: POC Glucose 152 H 03/15/25 20:13: APTT 68.8 H 03/15/25 23:11: POC Glucose 133 H 03/16/25 03:24: WBC 9.7, RBC 3.64 L, Hgb 10.1 L, Hct 30.1 L, MCV 82.7, MCH 27.7, MCHC 33.6, RDW Std Deviation 46.6 H, RDW Coeff of Adalid 15.3 H, Plt Count 294, MPV 8.5, Immature Gran % (Auto) 0.900, Neut % (Auto) 43.5 L, Lymph % (Auto) 40.7, [place] % (Auto) 9.6, Eos % (Auto) 4.6, Baso % (Auto) 0.7, Absolute Neuts (auto) 4.2, Absolute Lymphs (auto) 3.94, Nucleated RBC % 0, APTT 76.1 H, Sodium 132 L, Potassium 3.3, Chloride 94 L, Carbon Dioxide 29.2, Anion Gap 9, BUN 15, Creatinine 0.53 L, Estim Creat Clear Calc 59.17, Est GFR (MDRD) Non-Af 92, BUN/Creatinine Ratio 28.2 H, Glucose 144 H, Calcium 9.2, Phosphorus 3.4, Magnesium 1.9, Total Bilirubin 0.41, AST 25, ALT 31, Alkaline Phosphatase 54, Total Protein 6.8, Albumin 3.3 L, Globulin 3.5, Albumin/Globulin Ratio 0.9, Triglycerides 74, Cholesterol 110, LDL Cholesterol, Calc 53, VLDL Cholesterol 15, HDL Cholesterol 42, Cholesterol/HDL Ratio 2.65, TSH 2.050 03/16/25 06:19: POC Glucose 146 H 03/16/25 10:05: APTT 47.3 H Micro: Microbiology 03/15/25 02:50 Mucosa - Nose SARS-CoV-2, Influenza & RSV (PCR) - Final Physical Exam Narrative GENERAL: cooperative HEENT: Atraumatic; normocephalic EYES; Anicteric, Normal Conjunctiva NECK; supple, normal thyroid, RESPIRATORY: Diminished to auscultation CARDIOVASCULAR: Regular S1 S2, GI: soft, normoactive bowel sounds, : No Renal angle tenderness; EXTREMITIES: No edema, no clubbing, MUSCULOSKELETAL: no muscle wasting NEURO: Awake; no lateralizing signs. SKIN: No Rash PSYCH; Flat affect Assessment & Plan Assessment/Plan (1) Dyspnea: (2) Elevated troponin: (3) New onset of congestive heart failure: (4) Orthopnea: (5) Hyperglycemia: (6) Left bundle branch block: (7) First degree heart block: PLAN: Plan Patient is an 84-year-old lady who presented with sudden onset of shortness of breath and unable to lay flat. Checks x-ray demonstrated bilateral pleural effusion was also found to have slightly elevated troponin admitted to monitored bed for further management 1. Acute congestive heart failure ? Patient was noted to have pleural effusions on chest x-ray, admitted to monitored bed manage strict input and output, low-sodium diet, fluid restriction 2D echo ordered for EF assessment patient was started on diuretic therapy with furosemide 2. Acute non-STEMI ? With new onset left bundle branch block as well as mildly elevated troponin from 22-40 3-49. Patient was started on heparin drip aspirin and statin therapy 2D echo and consultation placed to cardiology. Cardiology recommended for patient to undergo left heart catheterization 3. Class III obesity with BMI of 40.4 ? Complicating care weight loss advised 4. Diabetes mellitus type II -patient's oral hypoglycemics held. Placed on long acting insulin, Accu-Cheks a.c. and at bedtime and covered with sliding scale insulin 5. Hypertension ? Blood pressure controlled, home medications continued with dose adjustment as needed 6. GERD ? Patient's PPI did continue 7. Overactive bladder - Continue fesoterodine- Follows outpatient with Dr. Gamboa 8. Chronic constipation ? Senokot as needed 9. DVT prophylaxis ? Patient is on heparin Time spent in the patient's overall evaluation,decision-making process, review of diagnostic data, adjustment of management, discussion with other providers, nursing nursing and ancillary staff involved in patient's care documentation, 40 Minutes Charges/Coding Visit Charges Inpatient E&M: 87939 Subs Hosp L2
--- NOTE | 2025-03-16 14:44 | CHAPLAIN ---
Type of Pastoral Visit _x__ Initial Visit ___ Follow-up Visit ___ On-call Visit ___ General Patient Visit ___ Spiritual Assessment ___ Family Conference ___ Bereavement ___ Rapid Response ___ Code Blue ___ Other (describe below) Pastoral Care Referral From _x__ Patient ___ Family ___ Nurse ___ Physician ___ Counseling Center Manager ___ Heel Seam [employer] ___ Other (describe below) Sacrament/Intervention _x__ Active listening ___ Anointing ___ Mosque ___ Bereavement ___ Communion _x__ Calista exploration ___ ___ Life review _x__ Prayer ___ Reconciliation ___ Sacrament of Sick _x__ Supportive presence ___ Wedding ___ Other (describe below) Pastoral Comments patient is awake and her daughters have gone to lunch; pt speaks of her testing done today and waiting to hear about results; pt expresses thankfulness for daughter that lives with her, for good staff care given, and for her calista in God; pt has no other concerns than her health and asks for prayer; pt is receptive to presence and care given
[2025-03-16] MEDS: FLU VACCINE HIGH DOSE 25-26(65YR UP) 180 MCG/0.5 ML SYRINGE IM (17:35)
[2025-03-16] MEDS: 0.9% Saline Lock 10 ML Syringe IV (21:23)
[2025-03-16] MEDS: Insulin Glargine-YFGN 100 UNIT/ML Pen 22 UNIT SC (21:25)
[2025-03-17 02:27] VITALS: BP 133/51; PULSE 77; RESP 17; TEMP 36.8; O2SAT 95
[2025-03-17 03:42] VITALS: BMI 41.0
[2025-03-17 06:07] LABS: Hematocrit 34.9 % (37-47); Hemoglobin 11.2 g/dL (12.0-15.0); Mean Corp Hgb Conc 32.1 g/dL (32-36); Mean Corpuscular Volume 84.1 fL (81-99); Mean Platelet Vol. 8.8 fl (6.2-12.0); Platelet Count 373 K/mm3 (150-450); RBC Distribution Width CV 15.9 % (11.6-14.6); RBC Distribution Width SD 47.5 fl (35.1-43.9); Red Blood Count 4.15 M/mm3 (4.2-5.4); White Blood Count 12.8 K/mm3 (4.4-11.0)
[2025-03-17 06:15] LABS: Prothrombin Time (Protime)PT. 13.8 SECONDS (11.7-14.9)
[2025-03-17 06:16] LABS: Partial Thromboplast Time 37.6 Seconds (24.1-36.2)
[2025-03-17 06:36] LABS: Anion Gap 10 (5-15); BUN 13 mg/dL (4-19); BUN/Creat Ratio 22.1 RATIO (10-20); Calcium,Total 9.1 mg/dL (7.6-11.0); Carbon Dioxide 25.8 mmol/L (21.0-32.0); Chloride 100 mmol/L (98-108); Estimated Creatinine Clearance 59.50 ml/min (50-250); Glucose 159 mg/dL (70-99); Magnesium 2.1 mg/dL (1.5-2.2); Potassium 3.7 mmol/L (3.3-5.1)
--- NOTE | 2025-03-17 07:43 | PN.CARD_ITS ---
Subjective Subjective Patient seen and evaluated. Doing better this morning Objective Data Vital Signs: Vital Signs Temp Pulse Resp BP Pulse Ox O2 Del Method 98.2 F 77 17 133/51 H 95 Room Air 03/17/25 02:27 03/17/25 02:27 03/17/25 02:27 03/17/25 02:27 03/17/25 02:27 03/17/25 02:28 Oxygen Delivery Method Room Air Weight: 224 lb 3.362 oz Body Mass Index (BMI) 41.0 Intake & Output: Intake and Output for Last 24 Hours 03/15/25 03/16/25 03/17/25 23:59 23:59 23:59 Intake Total 155.08 / 155.08 81.77 / 81.77 240 / 240 Output Total 1450 / 1750 1400 / 1400 550 / 550 Balance -1294.92 / -1594.92 -1318.23 / -1318.23 -310 / -310 Lab / Micro Data 03/17/25 05:45 03/17/25 05:45 Labs: Laboratory Results - last 24 hr 03/16/25 10:05: APTT 47.3 H 03/16/25 12:20: POC Glucose 196 H 03/16/25 16:35: POC Glucose 146 H 03/16/25 21:19: POC Glucose 199 H 03/17/25 05:45: WBC 12.8 H, RBC 4.15 L, Hgb 11.2 L, Hct 34.9 L, MCV 84.1, MCH 27.0, MCHC 32.1, RDW Std Deviation 47.5 H, RDW Coeff of Adalid 15.9 H, Plt Count 373, MPV 8.8, PT 13.8, INR 1.0, APTT 37.6 H, Sodium 136, Potassium 3.7, Chloride 100, Carbon Dioxide 25.8, Anion Gap 10, BUN 13, Creatinine 0.59 L, Estim Creat Clear Calc 59.50, Est GFR (MDRD) Non-Af 89, BUN/Creatinine Ratio 22.1 H, Glucose 159 H, Calcium 9.1, Phosphorus 3.2, Magnesium 2.1 03/17/25 06:38: POC Glucose 156 H Cardiology Labs/Tests 03/16/25 10:05: APTT 47.3 H 03/17/25 05:45: WBC 12.8 H, RBC 4.15 L, Hgb 11.2 L, Hct 34.9 L, MCV 84.1, MCH 27.0, MCHC 32.1, Plt Count 373, MPV 8.8, PT 13.8, INR 1.0, APTT 37.6 H, Sodium 136, Potassium 3.7, Chloride 100, Carbon Dioxide 25.8, Anion Gap 10, BUN 13, C reatinine 0.59 L, Est GFR (MDRD) Non-Af 89, BUN/Creatinine Ratio 22.1 H, Glucose 159 H, Calcium 9.1, Phosphorus 3.2, Magnesium 2.1 Rhythm: EKG: ECHO: Stress Test: Cardiac Cath: PCI: CT Surgery: Holter monitor: EPS: PPM: CXR: Chest CT Scan: Radiography Diagnostic Testing: Radiology Impression Echocardiogram 03/15/25 06:54 Interpretation Summary Normal LV size. Left ventricular systolic function is normal. Mild concentric left ventricular hypertrophy. The left ventricular ejection fraction is 65 %. Stage 1 diastolic dysfunction. There is mild to moderate mitral annular calcification. Mild-Moderate (1-2+) eccentric mitral valve insufficiency. Mean aortic valve gradient 32 mmHg. Moderate aortic stenosis. Ordering Physician: Dasha Rodrigez Referring Physician: Marilee De Leon Performed By: Ashley Boothe RDCS Physical Exam Const alert and oriented x3 Orientation / Consciousness: awake Eyes PERRL Neck full ROM Carotids: normal carotid upstroke Chest inspection of chest normal Cardio regular rate and regular rhythm Heart Sounds: murmur systolic II/ harsh early left sternal border GI normal to inspection, nondistended, normoactive bowel sounds Extremity normal to inspection and no clubbing, cyanosis or edema Assessment & Plan Assessment/Plan (1) Aortic stenosis: PLAN: Aortic stenosis appears to be moderate at best at this time. Her natruretic peptide corrected for age does not demonstrate congestive heart failure and based on her last echocardiogram it appears to be moderate. My suspicion is that the shortness of breath is likely secondary to uncontrolled hypertension Transvalvular aortic gradient is approximately 30 mmHg (2) Non-ST elevation ME (NSTEMI): PLAN: She does have a non-ST elevation myocardial infarction. Cardiac catheterization demonstrated the following: Mild calcification of the left main coronary artery Left anterior descending artery with moderate diffuse calcification Left circumflex artery with no high-grade stenosis Dominant right coronary artery with moderate to severe calcification and 50% mid segment stenosis Preserved left ventricular systolic function (3) Benign essential hypertension: PLAN: Her blood pressure does not appear to be well-controlled Recommend aggressive blood pressure control and optimization of medical therapy Can probably be optimized as an outpatient PLAN: Plan Can be likely discharged for outpatient follow-up. Later on today.
--- NOTE | 2025-03-17 07:44 | PCM.PN.HOSP ---
Reason for Visit Chief Complaint: Shortness of breath Subjective Subjective Patient underwent left heart catheterization today prior results as below Objective Data Objective Data Vital Signs: Vital Signs Temp Pulse Resp BP Pulse Ox O2 Del Method 98.2 F 77 17 133/51 H 95 Room Air 03/17/25 02:27 03/17/25 02:27 03/17/25 02:27 03/17/25 02:27 03/17/25 02:27 03/17/25 02:28 Oxygen Delivery Method Room Air Weight: 101.7 kg Body Mass Index (BMI) 41.0 Intake & Output: Intake and Output for Last 24 Hours 03/15/25 03/16/25 03/17/25 23:59 23:59 23:59 Intake Total 155.08 / 155.08 81.77 / 81.77 240 / 240 Output Total 1450 / 1750 1400 / 1400 550 / 550 Balance -1294.92 / -1594.92 -1318.23 / -1318.23 -310 / -310 Lab / Micro Data 03/17/25 05:45 03/17/25 05:45 Labs: Laboratory Results - last 24 hr 03/16/25 10:05: APTT 47.3 H 03/16/25 12:20: POC Glucose 196 H 03/16/25 16:35: POC Glucose 146 H 03/16/25 21:19: POC Glucose 199 H 03/17/25 05:45: WBC 12.8 H, RBC 4.15 L, Hgb 11.2 L, Hct 34.9 L, MCV 84.1, MCH 27.0, MCHC 32.1, RDW Std Deviation 47.5 H, RDW Coeff of Adalid 15.9 H, Plt Count 373, MPV 8.8, PT 13.8, INR 1.0, APTT 37.6 H, Sodium 136, Potassium 3.7, Chloride 100, Carbon Dioxide 25.8, Anion Gap 10, BUN 13, Creatinine 0.59 L, Estim Creat Clear Calc 59.50, Est GFR (MDRD) Non-Af 89, BUN/Creatinine Ratio 22.1 H, Glucose 159 H, Calcium 9.1, Phosphorus 3.2, Magnesium 2.1 03/17/25 06:38: POC Glucose 156 H Micro: Microbiology 03/15/25 02:50 Mucosa - Nose SARS-CoV-2, Influenza & RSV (PCR) - Final Radiography Diagnostic Testing: Radiology Impression Echocardiogram 03/15/25 06:54 Interpretation Summary Normal LV size. Left ventricular systolic function is normal. Mild concentric left ventricular hypertrophy. The left ventricular ejection fraction is 65 %. Stage 1 diastolic dysfunction. There is mild to moderate mitral annular calcification. Mild-Moderate (1-2+) eccentric mitral valve insufficiency. Mean aortic valve gradient 32 mmHg. Moderate aortic stenosis. Ordering Physician: Dasha Rodrigez Referring Physician: Marilee D eLeon Performed By: Ashley Boothe RDCS Physical Exam Narrative GENERAL: cooperative HEENT: Atraumatic; normocephalic EYES; Anicteric, Normal Conjunctiva NECK; supple, normal thyroid, RESPIRATORY: Diminished to auscultation CARDIOVASCULAR: Regular S1 S2, GI: soft, normoactive bowel sounds, : No Renal angle tenderness; EXTREMITIES: No edema, no clubbing, MUSCULOSKELETAL: no muscle wasting NEURO: Awake; no lateralizing signs. SKIN: No Rash PSYCH; Flat affect Assessment & Plan Assessment/Plan (1) Dyspnea: (2) Elevated troponin: (3) New onset of congestive heart failure: (4) Orthopnea: (5) Hyperglycemia: (6) Left bundle branch block: (7) First degree heart block: PLAN: Plan Patient is an 84-year-old lady who presented with sudden onset of shortness of breath and unable to lay flat. Checks x-ray demonstrated bilateral pleural effusion was also found to have slightly elevated troponin admitted to monitored bed for further management 1. Acute congestive heart failure ? Patient was noted to have pleural effusions on chest x-ray, admitted to monitored bed manage strict input and output, low-sodium diet, fluid restriction 2D echo ordered for EF assessment patient was started on diuretic therapy with furosemide ? 03/17/2025; 2D echo results as below Normal LV size. Left ventricular systolic function is normal. Mild concentric left ventricular hypertrophy. The left ventricular ejection fraction is 65 %. Stage 1 diastolic dysfunction. There is mild to moderate mitral annular calcification. Mild-Moderate (1-2+) eccentric mitral valve insufficiency. Mean aortic valve gradient 32 mmHg. Moderate aortic stenosis. 2. Acute non-STEMI ? With new onset left bundle branch block as well as mildly elevated troponin from 22-40 3-49. Patient was started on heparin drip aspirin and statin therapy 2D echo and consultation placed to cardiology. Cardiology recommended for patient to undergo left heart catheterization ? 03/17/2025; patient left heart catheterization result as below Mild calcification of the left main coronary artery Left anterior descending artery with moderate diffuse calcification Left circumflex artery with no high-grade stenosis Dominant right coronary artery with moderate to severe calcification and 50% mid segment stenosis Preserved left ventricular systolic function ? Cardiology recommended optimization of medical therapy 3. Valvular heart disease ? 2D echo demonstrated mild aortic stenosis. Plan is for patient to follow-up with cardiology for subsequent follow-up 4. Diabetes mellitus type II -patient's oral hypoglycemics held. Placed on long acting insulin, Accu-Cheks a.c. and at bedtime and covered with sliding scale insulin 5. Hypertension ? Blood pressure controlled, home medications continued with dose adjustment as needed 6. GERD ? Patient's PPI did continue 7. Overactive bladder - Continue fesoterodine- Follows outpatient with Dr. Gamboa 8. Chronic constipation ? Senokot as needed 9. Class III obesity with BMI of 40.4 ? Complicating care weight loss advised 10. DVT prophylaxis ? Patient is on heparin Time spent in the patient's overall evaluation,decision-making process, review of diagnostic data, adjustment of management, discussion with other providers, nursing nursing and ancillary staff involved in patient's care documentation, 38 Minutes Charges/Coding Visit Charges Inpatient E&M: 26149 Subs Hosp L2
[2025-03-17 08:22] VITALS: BP 150/77; PULSE 77; RESP 19; TEMP 36.5; O2SAT 96
[2025-03-17] MEDS: Aspirin E.C. 81 MG Tablet PO (08:27)
[2025-03-17 08:29] VITALS: PULSE 77
[2025-03-17] MEDS: Metoprolol(XL)Succ 25 MG Tablet PO (08:29)
[2025-03-17] MEDS: BRIMONIDINE 0.15% 5 ML Bottle 1 DRP LEFT EYE (08:29)
--- NOTE | 2025-03-17 09:15 | PCM.DC.SUM ---
Providers Date of Admission: 03/15/25 Primary Care Physician: Dr. Marilee Jiang DO Consultations 03/15/25 06:54 Consult: Cardiology Routine Consulting Provider: Aleksandra Tran Reason for Consult: new lbbb with acute dyspena and elevated troponin EMERGENT Consult: No MD Notified: Yes Date Notified: 03/15/25 Time Notified: 06:15 Method of Notification: Verbal Reason For Visit: SHORTNESS OF BREATH/ORTHOPNEA WITH SUSPECTED Diagnosis Discharge Diagnosis (1) Dyspnea: Status: Acute Code(s): R06.00 - Dyspnea, unspecified (2) Elevated troponin: Status: Acute Code(s): R79.89 - Other specified abnormal findings of blood chemistry (3) New onset of congestive heart failure: Status: Acute Code(s): I50.9 - Heart failure, unspecified (4) Orthopnea: Status: Acute Code(s): R06.01 - Orthopnea (5) Hyperglycemia: Status: Acute Code(s): R73.9 - Hyperglycemia, unspecified (6) Left bundle branch block: Status: Acute Code(s): I44.7 - Left bundle-branch block, unspecified (7) First degree heart block: Status: Acute Code(s): I44.0 - Atrioventricular block, first degree Plan Patient is an 84-year-old lady who presented with sudden onset of shortness of breath and unable to lay flat. Checks x-ray demonstrated bilateral pleural effusion was also found to have slightly elevated troponin admitted to monitored bed for further management 1. Acute congestive heart failure ? Patient was noted to have pleural effusions on chest x-ray, admitted to monitored bed manage strict input and output, low-sodium diet, fluid restriction 2D echo ordered for EF assessment patient was started on diuretic therapy with furosemide ? 03/17/2025; 2D echo results as below Normal LV size. Left ventricular systolic function is normal. Mild concentric left ventricular hypertrophy. The left ventricular ejection fraction is 65 %. Stage 1 diastolic dysfunction. There is mild to moderate mitral annular calcification. Mild-Moderate (1-2+) eccentric mitral valve insufficiency. Mean aortic valve gradient 32 mmHg. Moderate aortic stenosis. 2. Acute non-STEMI ? With new onset left bundle branch block as well as mildly elevated troponin from 22-40 3-49. Patient was started on heparin drip aspirin and statin therapy 2D echo and consultation placed to cardiology. Cardiology recommended for patient to undergo left heart catheterization ? 03/17/2025; patient left heart catheterization result as below Mild calcification of the left main coronary artery Left anterior descending artery with moderate diffuse calcification Left circumflex artery with no high-grade stenosis Dominant right coronary artery with moderate to severe calcification and 50% mid segment stenosis Preserved left ventricular systolic function ? Cardiology recommended optimization of medical therapy 3. Valvular heart disease ? 2D echo demonstrated mild aortic stenosis. Plan is for patient to follow-up with cardiology for subsequent follow-up 4. Diabetes mellitus type II -patient's oral hypoglycemics held. Placed on long acting insulin, Accu-Cheks a.c. and at bedtime and covered with sliding scale insulin 5. Hypertension ? Blood pressure controlled, home medications continued with dose adjustment as needed 6. GERD ? Patient's PPI did continue 7. Overactive bladder - Continue fesoterodine- Follows outpatient with Dr. Gamboa 8. Chronic constipation ? Senokot as needed 9. Class III obesity with BMI of 40.4 ? Complicating care weight loss advised 10. DVT prophylaxis ? Patient is on heparin Time spent in the patient's overall evaluation,decision-making process, review of diagnostic data, adjustment of management, discussion with other providers, nursing nursing and ancillary staff involved in patient's care documentation, 38 Minutes Medications at Discharge Home Medications ascorbic acid (vitamin C) 500 mg capsule 500 mg PO DAILY supplement 11/08/17 brimonidine 0.15 % eye drops 1 drp BID damaged eye 11/08/17 cyanocobalamin (vitamin B-12) 500 mcg tablet 1 tab PO DAILY@0800 supplement 11/08/17 insulin glargine 100 unit/mL subcutaneous solution (Lantus U-100 Insulin) 18 unit subcut QHS diabetes 11/08/17 losartan 50 mg tablet 50 mg PO DAILY blood pressure 11/08/17 multivitamin (Daily Multiple tablet) 1 ea PO DAILY supplement 11/08/17 omega-3 fatty acids-fish oil 340 mg-1,000 mg capsule (Fish Oil) 1 ea PO DAILY supplement 11/08/17 desmopressin 0.2 mg tablet 0.2 mg PO QHS incontinence 02/27/25 fesoterodine 4 mg tablet,extended release 24 hr 4 mg PO QDAY incontinence 02/27/25 albuterol sulfate 90 mcg/actuation aerosol inhaler 2 puff inhalation Q4H PRN PRN shortness of breath or wheezing 03/15/25 omeprazole 20 mg capsule,delayed release 20 mg PO DAILY 03/15/25 aspirin 81 mg tablet,delayed release 81 mg PO BREAKFAST #90 tabs 03/17/25 atorvastatin 40 mg tablet 40 mg PO QHS #90 tabs 03/17/25 metoprolol succinate 25 mg tablet,extended release 24 hr 25 mg PO DAILY #90 tabs 03/17/25 spironolactone 25 mg tablet 25 mg PO DAILY #90 tabs 03/17/25 Weight / BMI Weight Weight: 101.7 kg Body Mass Index (BMI) 41.0 ABG / Lab / Microbiology Data 03/17/25 05:45 03/17/25 05:45 Laboratory: Laboratory Results - last 24 hr 03/16/25 10:05: APTT 47.3 H 03/16/25 12:20: POC Glucose 196 H 03/16/25 16:35: POC Glucose 146 H 03/16/25 21:19: POC Glucose 199 H 03/17/25 05:45: WBC 12.8 H, RBC 4.15 L, Hgb 11.2 L, Hct 34.9 L, MCV 84.1, MCH 27.0, MCHC 32.1, RDW Std Deviation 47.5 H, RDW Coeff of Adalid 15.9 H, Plt Count 373, MPV 8.8, PT 13.8, INR 1.0, APTT 37.6 H, Sodium 136, Potassium 3.7, Chloride 100, Carbon Dioxide 25.8, Anion Gap 10, BUN 13, Creatinine 0.59 L, Estim Creat Clear Calc 59.50, Est GFR (MDRD) Non-Af 89, BUN/Creatinine Ratio 22.1 H, Glucose 159 H, Calcium 9.1, Phosphorus 3.2, Magnesium 2.1 03/17/25 06:38: POC Glucose 156 H Microbiology: Microbiology 03/15/25 03:00 Blood Culture (Wb) - Anticubital Left Blood Culture - Preliminary No growth in 48 hours. 03/15/25 02:52 Blood Culture (Wb) - Anticubital Left Blood Culture - Preliminary No growth in 48 hours. 03/15/25 02:50 Mucosa - Nose SARS-CoV-2, Influenza & RSV (PCR) - Final Radiography Diagnostic Testing: Radiology Impression Echocardiogram 03/15/25 06:54 Interpretation Summary Normal LV size. Left ventricular systolic function is normal. Mild concentric left ventricular hypertrophy. The left ventricular ejection fraction is 65 %. Stage 1 diastolic dysfunction. There is mild to moderate mitral annular calcification. Mild-Moderate (1-2+) eccentric mitral valve insufficiency. Mean aortic valve gradient 32 mmHg. Moderate aortic stenosis. Ordering Physician: Dasha Rodrigez Referring Physician: Marilee De Leon Performed By: Ashley Boothe RDCS D/C Instructions Discharge Activity: Return to Normal Activity Call your doctor if you observe: Fever of 101 or Higher, Shortness of breath, Fainting spells and Chest pain DC O2, CPAP, BIPAP Needs Home O2 Discharge instructions: No Meaningful Use Info Meaningful Use Meaningful Use Diagnoses (Choose all that apply): CHF CHF LAURA/ARB ordered at discharge?: Yes Documented LVEF (%): 65 Discharge Plan Admission Admit Date/Time: 03/15/25 06:12 Attending Provider: Ricardo Rojas Primary Care Provider: Marilee Jiang Consulting Providers: Dasha Rodrigez; Aleksandra Tran; Jay Faustin Discharge Orders/Prescriptions Prescriptions: New atorvastatin 40 mg Tablet 40 mg PO QHS Qty: 90 0RF aspirin 81 mg Tablet,Delayed Release (Dr/Ec) 81 mg PO BREAKFAST Qty: 90 0RF spironolactone 25 mg Tablet 25 mg PO DAILY Qty: 90 0RF metoprolol succinate 25 mg Tablet Extended Release 24 Hr 25 mg PO DAILY Qty: 90 0RF Continued desmopressin 0.2 mg tablet 0.2 mg PO QHS fesoterodine 4 mg tablet extended release 24 hr 4 mg PO QDAY multivitamin [Daily Multiple] 1 EACH tablet 1 ea PO DAILY losartan 50 MG tablet 50 mg PO DAILY insulin glargine [Lantus U-100 Insulin] 100 UNIT/ML solution 18 unit subcut QHS Patient Comments: 26 with taking steroid cyanocobalamin (vitamin B-12) 500 MCG tablet 1 tab PO DAILY@0800 brimonidine 1 DROP bottle 1 drp Left Eye BID Fish Oil 1 EACH capsule 1 ea PO DAILY ascorbic acid (vitamin C) 500 MG capsule 500 mg PO DAILY albuterol sulfate 90 mcg/actuation HFA aerosol inhaler 2 puff INHALATION Q4H PRN PRN (Reason: shortness of breath or wheezing) omeprazole 20 mg capsule,delayed release(DR/EC) 20 mg PO DAILY Discontinued pioglitazone [Actos] 45 mg tablet 45 mg PO DAILY losartan 25 mg tablet 25 mg PO QDAY pravastatin 10 MG tablet 10 mg PO QHS glimepiride 4 MG tablet 4 mg PO BID Referrals / Follow Up: Todd Lobo MD [Med Staff - Active Staff, Cardiology] - Within 1 Month Marilee Jiang DO [Primary Care Provider, Family Practice] - Within 1 Week Disposition Disposition (needs filled in before D/C Order can be placed): Home, Self Care Charges/Coding Visit Charges Inpatient E&M: 22024 Disch Hosp >30min
--- NOTE | 2025-03-17 09:32 | CASEMGMT ---
Social Work SW assisted the patient with completing her POA. Patient did not want to complete the LW. ELI Marie
--- NOTE | 2025-03-17 11:13 | PHA.DC_ITS ---
Pharmacy [facility] Counseling Pharmacy Service has performed discharge medication reconciliation and counseling for this patient. The patient's discharge medication list was reviewed for discrepancies and discrepancies were resolved. The patient was counseled on the following discharge medications and changes in medications for homegoing were reviewed. 1. ASPIRIN 2. LIPITOR --> D/C PRAVASTATIN 3. TOPROL XL 4. ALDACTONE 5. STOP GLIMEPIRIDE, ACTOS, LOSARTAN, PRAVASTATIN The Reason for Use, instructions for use, and potential side effects were reviewed for all new medications. The patient's questions regarding all of their medications were answered. The patient was able to verbally demonstrate an understanding of their discharge medications. The patient was counselled by Crescencio Grigsby PharmD Candidate Medications at Discharge Home Medications ascorbic acid (vitamin C) 500 mg capsule 500 mg PO DAILY supplement 11/08/17 brimonidine 0.15 % eye drops 1 drp BID damaged eye 11/08/17 cyanocobalamin (vitamin B-12) 500 mcg tablet 1 tab PO DAILY@0800 supplement 11/08/17 insulin glargine 100 unit/mL subcutaneous solution (Lantus U-100 Insulin) 18 unit subcut QHS diabetes 11/08/17 losartan 50 mg tablet 50 mg PO DAILY blood pressure 11/08/17 multivitamin (Daily Multiple tablet) 1 ea PO DAILY supplement 11/08/17 omega-3 fatty acids-fish oil 340 mg-1,000 mg capsule (Fish Oil) 1 ea PO DAILY supplement 11/08/17 desmopressin 0.2 mg tablet 0.2 mg PO QHS incontinence 02/27/25 fesoterodine 4 mg tablet,extended release 24 hr 4 mg PO QDAY incontinence 02/27/25 albuterol sulfate 90 mcg/actuation aerosol inhaler 2 puff inhalation Q4H PRN PRN shortness of breath or wheezing 03/15/25 omeprazole 20 mg capsule,delayed release 20 mg PO DAILY reflux 03/15/25 aspirin 81 mg tablet,delayed release 81 mg PO BREAKFAST #90 tabs 03/17/25 atorvastatin 40 mg tablet 40 mg PO QHS #90 tabs 03/17/25 metoprolol succinate 25 mg tablet,extended release 24 hr 25 mg PO DAILY #90 tabs 03/17/25 spironolactone 25 mg tablet 25 mg PO DAILY #90 tabs 03/17/25
--- NOTE | 2025-03-17 11:44 | CASEMGMT ---
Addendum entered by Tate Cooper 03/17/25 13:28: Per Adrianna @ [facility], they are able to accept pt w/SOC slated for tomorrow. Pt and daughter made aware. Discharge plan updated. Original Note: JAC MCWILLIAMS NOTE: Discharge order is in. ST recommends additional ST @ discharge. JAC CM to room. Pt sitting up in chair in room, daughter in room visiting. Discussed discharge and ST, including HHC and OP. Pt and daughter state they would like HHC, not OP, and pt states 1st preference is [facility] and she declines wanting list of other C options at this time. Pt and dtr both verify pt is homebound @ baseline. She uses a walker and does have difficulty getting in/out of home to go places. Call placed to Yanique @ [facility] and referral made. Awaiting response. Jason MELCHOR RN CM
[2025-03-17 14:00] VITALS: BP 155/64; PULSE 72; RESP 16; TEMP 36.5; O2SAT 97
--- NOTE | 2025-03-23 13:55 | CL.D_ITS ---
Patient Name: LAZARA SHANE Study Date: 03/16/2025 Performing: Todd Lobo MD Ht: 62 inches 157.48 cm : 1940 Wt: 221.2 lbs 100.2 kg Age: 84 Gender: female BSA: 1.99 PROCEDURE(S) PERFORMED DC01-(67082)LHC/COR/LV CLINICAL PROFILE AND INDICATIONS Indications: Valvular Disease Heart Failure: None Stress/Imaging Stress/Image Study Performed: No CAD Presentations: Other: sob CONCLUSIONS Moderate right coronary artery stenosis with no high-grade atherosclerotic stenosis present. Moderate aortic valve stenosis, preserved ejection fraction. RECOMMENDATIONS Aggressive medical therapy. Repeat echocardiogram. DESCRIPTION OF PROCEDURE The patient arrived to the procedure lab. The risks and benefits of the procedure as well as a full description of our services here and current unavailability of surgical backup were fully explained to the patient and/or their significant other prior to the catheterization. The Timeout was completed, verifying the correct patient and procedure. The patient's procedural site was prepped and draped in the usual fashion. Local anesthetic was given subcutaneously to right radial region with Lidocaine 2%. Using a modified Seldinger technique, arterial access was obtained via the right radial artery, a 6Fr sheath was inserted. Left Coronary Artery selective angiography was performed in multiple views using a 5 Fr. 4.0 Bronson catheter. Right Coronary Artery selective angiography was then performed in multiple views using a 5 Fr. 4.0 Bronson catheter. Left Ventriculography was performed in CALZADA projection using a 5 Fr. Pigtail catheter. LV to AO pullback pressures were then recorded.The arterial sheath was pulled and a TR Band was applied for hemostasis CORONARY ANGIOGRAPHY DOMINANCE: Right Dominant LEFT HEART ASSESSMENT Left Ventricular Ejection Fraction: by LV Gram 60 % Normal LV wall motion Normal Left Ventricular systolic function LEFT MAIN: Mild calcification, Mild luminal irregularities LEFT ANTERIOR DESCENDING ARTERY: Moderate calcification, Mild luminal irregularities less than 30% DIAGONAL 1: Ostial - Mild luminal irregularities less than 30% CIRCUMFLEX ARTERY: Nondominant vessel with moderate disease noted in the 3 obtuse marginal branches. RIGHT CORONARY ARTERY: Severe calcification MID RCA: Moderate luminal irregularities up to 50% VALVE FINDINGS: Aortic Valve Stenosis - moderate COMPLICATIONS No Complications PROCEDURE MEDICATIONS Fentanyl 50 mcg IV Versed 1 mg IV Oxygen: 2 L/min via nasal cannula Heparin 25,000u / 250ml D5W @ u/hr discontinued 03/16/2025 08:17:45 Heparin given IA 03/16/2025 08:33:15 Verapamil 2.5mg, Ntg 100mcgs, 3000 units of Heparin given IA 03/16/2025 08:33:15 SUMMARY OF HEMODYNAMIC DATA Time AIR REST ECG 08:12:29 AO 148/53 (89) SA 08:36:31 LV 180/1, 16 08:43:43 LV 179/0, 8 08:43:51 LV 183/3, 12 08:44:40 LVp 183/3, 13 08:44:47 AOp 155/50 (89) 08:44:55 AIR REST 08:58:36 Signed By Todd Lobo MD On 03/23/2025 13:55:09 Todd Lobo MD
== END 2025-03-17 14:23 | disposition home health service (06) | DRG 280 ==
LOC: ED 04:23 → PCU 06:26
PROVIDERS: Internal Medicine Cardiovascular Disease; Admitting Provider Internal Medicine; Emergency Provider Specialist/Technologist Athletic Trainer; PCP Family Medicine; Visit Provider Internal Medicine
DX: I21.4 Non-ST elevation (NSTEMI) myocardial infarction (principal); I50.31 Acute diastolic (congestive) heart failure; Z68.41 Body mass index [BMI] 40.0-44.9, adult; E11.65 Type 2 diabetes mellitus with hyperglycemia; I11.0 Hypertensive heart disease with heart failure; K76.0 Fatty (change of) liver, not elsewhere classified; I35.0 Nonrheumatic aortic (valve) stenosis; E11.43 Type 2 diabetes mellitus with diabetic autonomic (poly)neuropathy; I44.7 Left bundle-branch block, unspecified; E66.01 Morbid (severe) obesity due to excess calories; E78.5 Hyperlipidemia, unspecified; I44.0 Atrioventricular block, first degree; Z79.4 Long term (current) use of insulin; G47.33 Obstructive sleep apnea (adult) (pediatric); K21.9 Gastro-esophageal reflux disease without esophagitis; I25.10 Atherosclerotic heart disease of native coronary artery without angina pectoris; R01.1 Cardiac murmur, unspecified; N32.81 Overactive bladder; Z79.899 Other long term (current) drug therapy; Z79.51 Long term (current) use of inhaled steroids; Z87.891 Personal history of nicotine dependence
CPT/HCPCS: 36415; 71046; 71275; 80048; 80053; 80061; 82962; 83036; 83605; 83735; 83880; 84100; 84443; 84484; 85025; 85027; 85610; 85730; 87040; 87631; 92610; 93005; 93306; 93458; 94668; 99152; 99153; 99285; Q9967; A4216; C1769; C1894; J1938

== ENCOUNTER → 2025-03-25 | Outpatient (CLI) | payer MEDICARE, OTHER, SELFPAY | END | disposition home or self-care (01) | LOC: LABSPEC 16:11 | PROVIDERS: PCP Family Medicine; Visit Provider Family Medicine | DX: N39.0 Urinary tract infection, site not specified (principal) | CPT/HCPCS: 87077; 87086; 87088; 87186 ==

== ENCOUNTER → 2025-04-08 | Outpatient (CLI) | payer MEDICARE, OTHER, SELFPAY | END | disposition home or self-care (01) | LOC: LABSPEC 15:44 | PROVIDERS: PCP Family Medicine; Referring Provider Family Medicine; Visit Provider Family Medicine | DX: R30.0 Dysuria (principal) | CPT/HCPCS: 87077; 87086; 87088; 87186 ==